=== PATIENT | male | born 1955 | race Caucasian/White ===

== ENCOUNTER 2016-08-19 10:12 | Emergency (ER) | payer BC ==
[~2016-08-19] VITALS: Ht 180.3 cm; Wt 116.9 kg
[~2016-08-19 10:12] MED LIST: AMLO2.5T PO; ASPI81TA28 PO; ATOR-24 PO; CALC-342 PO; CHOL1000 PO; CMD5 PO; GABA-112 PO; GLC/500 PO; INDO-22 PO; QUIN40TA18 PO; SITA100T3 PO; TAMS0.4C38 PO; WARF-237 PO; [UNRECOGNIZED DRUG - CODE] IM
[2016-08-19 10:23] VITALS: Ht 180.3 cm; Wt 116.9 kg
[2016-08-19] MEDS ORDERED: ONDANSETRON INJ 2 MG/ML 2 ML VIAL IV PRN (11:00)
[2016-08-19] MEDS: HYDROmorphone INJ 1 MG/ML SYR IV PRN ×3 (11:15→13:26)
--- NOTE | 2016-08-19 11:19 | EMERGENCY ROOM VISIT NOTE ---
History Report prepared by Sangita: Maggie Henning Under the Supervision of: Dr. Nito Valenzuela M.D. 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 The patient states that he has suffer from ongoing shoulder pain and it occasionally gets very severe. He states that he has scheduled a shoulder replacement for August [address] Perez. The patient states that he has never dislocated his right shoulder before but his states that yesterday his shoulder was locking up and was stiff. The patient states that he is unable to move his right shoulder due to pain. The patient's states that the patient took pain medication earlier today but it did not decrease his pain. The patient states that he occasionally develops bleeding in his shoulder but that he has never had it drained before and that the blood reabsorbs. Source of History: patient Onset: MANAGER VALIDATION Position: shoulder (right) Symptom Intensity: 10/10 Timing: worsening Modifying Factors (Worsening): movement Review of Systems All systems have been listed, reviewed, and are negative other than those previously mentioned. Please see Additional Medical History Sheet. Past Medical & Surgical Medical Problems: (1) Atrial fibrillation (2) Prostate cancer Family History Diabetes mellitus Social History Smoking Status: Never Smoker Drug Use: none Marital Status: Housing Status: lives with family Occupation Status: retired Current/Historical Medications Scheduled Amlodipine Besylate (Norvasc), 2.5 MG PO QAM Aspirin (Aspirin Ec), 81 MG PO QAM Atorvastatin (Lipitor), 40 MG PO HS Calcium Carbonate-Vitamin D (Calcium 600+D), 1 TAB PO QAM Cholecalciferol (Vitamin D3), 1,000 UNIT PO QPM Degarelix Acetate (Firmagon), 1 DOSE IM DIRECTED Docusate Sodium (Colace), 100 MG PO BID Gabapentin (Neurontin), 100 MG PO BID Indomethacin (Indocin), 25-50 MG PO prn Metformin Hcl (Glucophage), 1,000 MG PO BID Quinapril Hcl (Accupril), 40 MG PO QPM Sitagliptin Phosphate (Januvia), 100 MG PO QPM Tamsulosin Hcl (Flomax), 0.4 MG PO QPM Warfarin Sod (Coumadin), 10 MG PO MWF Warfarin Sod (Coumadin), 5 MG PO Tues,Thus,Sat,Sun Scheduled PRN Hydromorphone Hcl (Dilaudid), 1 TAB PO Q4H PRN for Pain Allergies Coded Allergies: No Known Allergies (Verified , 08/19/16) Physical Exam Vital Signs Date Time Temp Pulse Resp B/P Pulse Ox O2 Delivery O2 Flow Rate FiO2 08/19/16 15:07 68 16 165/80 97 Room Air 08/19/16 14:00 62 16 133/65 96 Room Air 08/19/16 13:26 61 16 159/81 95 Room Air 08/19/16 12:51 59 08/19/16 12:00 57 17 156/75 94 Room Air 08/19/16 12:00 94 Room Air 08/19/16 10:23 55 20 147/83 97 Room Air Physical Exam GENERAL: Patient awake, alert, oriented x 3. Patient follows commands. Patient does not appear toxic. Patient is adequately hydrated and well- nourished. Patient appears to be in extreme pain, and is hyperventilating. SKIN: No erythema, pallor, cyanosis or rash HEENT: Normal head, pupils equal, reactive to light and accommodation. LUNGS: Clear to auscultation. No wheezes, no rales, no rhonchi. HEART: No murmurs. No gallops. No rubs CHEST: Well healed midline sternotomy scar. EXTREMITIES: No signs of trauma. No pedal or pretibial edema. No calf or thigh tenderness.Well healed scars over the top of both shoulders. Right shoulder is swollen and remarkable tender. Patient is unable to move the right shoulder in any direction due to severe pain. Distal sensory and circulatory function intact. NEUROLOGIC: Cranial nerves II-XII within normal limits. No gross motor sensory function deficits. Medical Decision & Procedures ER Provider Diagnostic Interpretation: X ray results are stated below per my interpretation and the radiologist's interpretation. RIGHT SHOULDER 3 VIEWS CLINICAL HISTORY: Chronic right shoulder pain. FINDINGS: 3 views of the right shoulder are correlated with chest x-ray dated 04/03/2016. The skeletal structures are osteopenic. No fracture is identified. There is arthritic change with bony sclerosis and subchondral cyst formation seen involving the greater tuberosity of the humeral head. Large spurs arise from the inferior aspect of the humeral head. Mild superior subluxation of the humeral head suggests chronic rotator cuff injury. There is widening of the acromioclavicular joint space which may on be a postoperative change or represent shoulder separation. The overlying soft tissues are within normal limits. Partially imaged right upper lobe lung parenchyma appears clear. Midline sternotomy wires are noted. IMPRESSION: 1. No fracture is seen. 2. Osteopenia and arthritic change as above. 3. Mild superior subluxation of the humeral head suggests chronic rotator cuff injury. 4. There is widening at the acromioclavicular joint. This may represent shoulder separation or could be on a postoperative basis. Clinical correlation will be required. Electronically signed by: Tommy Hoover M.D. 08/19/2016 11:43 AM Dictated Date/Time: 08/19/2016 11:41 AM Medications Administered Medications (Trade) Dose Ordered Sig/Leilani Route Start Time Stop Time Status Last Admin Dose Admin Hydromorphone HCl (Dilaudid Inj) 1 mg Q1HWA PRN IV 08/19/16 11:00 09/02/16 10:59 08/19/16 13:26 1 MG Ondansetron HCl (Zofran Inj) 4 mg Q1HWA PRN IV 08/19/16 11:00 09/18/16 10:59 08/19/16 11:14 4 MG ED Course 1048: Past medical records reviewed. The patient was evaluated in room A12B. A complete history and physical examination was performed. 1100: Ordered Zofran Inj 4 mg IV, Dilaudid Inj 1 mg IV. 1150: I reevaluated the patient and he was still experiencing pain. 1334: I reevaluated the patient and he was hemodynamically stable. 1425:I discussed the case with Dr. Huston Orthopedic Surgery. He agreed to evaluate the patient for further management and care. 1455: Dr. Huston evaluated the patinet and drained blood from inside the patient's shoulder joint. 1510: Upon reevaluation, the patient appeared to have improvement of his symptoms. I discussed today's findings with him. He verbalized agreement of the treatment plan. The patient was discharged home. Medical Decision Nurses notes reviewed. Medical history sheet reviewed. Differential diagnosis includes but is not limited to: degenerative joint .disease of the right shoulder, fracture, dislocation, subluxation, septic joint. The patient is here with severe right shoulder pain. This is one of many visits for the same. The patient has had some bleeding into the shoulder in the past and it appears that he has the same thing at this time. X-ray reveals chronic changes I do not believe that any of the findings are acute. The patient may have some bleeding into the joint. I'm reluctant to perform arthrocentesis at this time. He did improve without that procedure in the past. Patient is scheduled to have his shoulder replaced within the next couple of weeks. The patient was given the above medications but had inadequate relief. Consultation was obtained with Dr. Huston. He was able to drain some blood from the shoulder and inject Marcaine. The patient did feel better and was discharged. The patient will need a shoulder replacement soon. Consults Time Called: 1420 Consulting Physician: Dr. Huston Orthopedic Surgery Returned Call: [phone] I discussed the case with Dr. Huston Orthopedic Surgery. He agreed to evaluate the patient for further management and care. Impression Primary Impression: Right shoulder pain Scribe Attestation The scribe's documentation has been prepared under my direction and personally reviewed by me in its entirety. I confirm that the note above accurately reflects all work, treatment, procedures, and medical decision making performed by me. Departure Information Dispostion Home / Self-Care Prescriptions Docusate Sodium (COLACE) 100 Mg Cap 100 MG PO BID, #30 CAP Prov: Nito Valenzuela M.D. 08/19/16 Hydromorphone Hcl (DILAUDID) 4 Mg Tab 1 TAB PO Q4H Y for Pain, #20 TAB Prov: Nito Valenzuela M.D. 08/19/16 Referrals Tequila Eubanks M.D. (PCP) Forms HOME CARE DOCUMENTATION FORM, IMPORTANT VISIT INFORMATION Additional Instructions Follow-up with orthopedics as soon as possible Continue all of your current medications as prescribed. Dilaudid as needed for pain. Do not drive or operate machinery while taking pain medication. Colace twice a day to prevent constipation.
--- NOTE | 2016-08-19 11:45 | DIAGNOSTIC IMAGING REPORT ---
RIGHT SHOULDER 3 VIEWS CLINICAL HISTORY: Chronic right shoulder pain. FINDINGS: 3 views of the right shoulder are correlated with chest x-ray dated 04/03/2016. The skeletal structures are osteopenic. No fracture is identified. There is arthritic change with bony sclerosis and subchondral cyst formation seen involving the greater tuberosity of the humeral head. Large spurs arise from the inferior aspect of the humeral head. Mild superior subluxation of the humeral head suggests chronic rotator cuff injury. There is widening of the acromioclavicular joint space which may on be a postoperative change or represent shoulder separation. The overlying soft tissues are within normal limits. Partially imaged right upper lobe lung parenchyma appears clear. Midline sternotomy wires are noted. IMPRESSION: 1. No fracture is seen. 2. Osteopenia and arthritic change as above. 3. Mild superior subluxation of the humeral head suggests chronic rotator cuff injury. 4. There is widening at the acromioclavicular joint. This may represent shoulder separation or could be on a postoperative basis. Clinical correlation will be required. Electronically signed by: Tommy Hoover M.D. 08/19/2016 11:43 AM Dictated Date/Time: 08/19/2016 11:41 AM
[2016-08-19 12:00] VITALS: O2SAT 94
[2016-08-19] MEDS ORDERED: LIDOCAINE HCL 1% 20 ML VIAL ONE (14:40)
[2016-08-19] MEDS ORDERED: NURSING VERBAL MED ORDER ONE (15:15)
[2016-08-19] MEDS ORDERED: HYDR4TAB2 PO (15:18)
[2016-08-19] MEDS ORDERED: DOCU-94 PO (15:20)
[2016-08-19] MEDS ORDERED: BUPIVACAINE/EPINEPHRINE 0.5% 1:200,000 1.8 ML CARP INJ ONE (15:30)
[2016-08-19 15:33] VITALS: BP 165/80; PULSE 68; O2SAT 97
--- NOTE | 2016-08-19 17:26 | ORTHOPEDIC CONSULTATION ---
DATE OF CONSULTATION: 08/19/2016 Special attention to severe right shoulder pain. HISTORY OF PRESENT ILLNESS: This is a 60-year-old gentleman who has a known history of right shoulder arthritis. He is currently scheduled for a total shoulder replacement by Dr. Perez on the . He does take Coumadin, has had several episodes of hematoma in the shoulder with severe pain. He has been in the Emergency Department and has had multiple doses of intravenous narcotics and has been unable to control his pain. Emergency Department requests consultation for either aspiration of the shoulder versus admission. PAST MEDICAL HISTORY: Atrial fibrillation, prostate cancer. MEDICATIONS: Multiple and include Coumadin. PHYSICAL EXAMINATION: Right shoulder exam shows a tense effusion in the shoulder. He can flex and extend the wrist and the elbow, but further musculoskeletal exam is limited secondary to discomfort. Severe pain with touch of the shoulder. The shoulder is not markedly warm and is not erythematous. Radiographs do show superior subluxation of the humeral head with significant arthritic changes in the glenohumeral joint, widening of the AC joint is seen. No acute fracture are noted. ASSESSMENT: Right shoulder effusion/hemarthrosis with acute exacerbation of pain. PLAN: I discussed treatment options. We discussed options of drainage of the shoulder with injection of Marcaine. He is agreeable to this. PROCEDURE NOTE: The right shoulder was prepped with Betadine from a posterior approach. I injected approximately 4 mL of lidocaine. I then subsequently with an 18 gauge needle, aspirated the shoulder joint. I was able to remove approximately 10 mL of bloody fluid from the posterior glenohumeral joint. I injected 6 mL of Marcaine intraarticularly for pain relief. Band-Aid was applied. The patient will follow up as directed with Dr. Perez. [facility] CENTERJacqueline
[2016-09-01] MEDS ORDERED: ONDA8TAB6 PO (22:07)
[2016-09-01] MEDS ORDERED: OXYSR10 PO (22:07)
[2016-09-01] MEDS ORDERED: RXC5 PO (22:07)
[2016-09-01] MEDS ORDERED: ACET-1138 PO (22:07)
[2017-02-19] MEDS ORDERED: GLIP-199 PO (14:42)
[2017-02-19] MEDS ORDERED: ACET1TAB84 PO (14:42)
== END 2016-08-19 15:33 | disposition home or self-care (01) ==
LOC: C.EDB 10:14 → C.EDA 15:33
DX: M25.411 Effusion, right shoulder (principal); M25.011 Hemarthrosis, right shoulder; I48.91 Unspecified atrial fibrillation; Z85.46 Personal history of malignant neoplasm of prostate; Z79.82 Long term (current) use of aspirin; Z79.899 Other long term (current) drug therapy; Z79.01 Long term (current) use of anticoagulants

== ENCOUNTER 2016-08-21 01:10 | Emergency (ER) | payer BC ==
[~2016-08-21] VITALS: Ht 182.9 cm; Wt 118.3 kg
[~2016-08-21 01:10] MED LIST changes: +DOCU-94 PO; +HYDR4TAB2 PO
[2016-08-21 01:16] VITALS: Ht 182.9 cm; Wt 118.3 kg
[2016-08-21] MEDS ORDERED: HYDROmorphone INJ 1 MG/ML SYR IV STA ×2 (01:29→02:21)
[2016-08-21] MEDS ORDERED: ONDANSETRON INJ 2 MG/ML 2 ML VIAL IV STA (01:29)
[2016-08-21] MEDS ORDERED: METF500T5 PO (03:03)
[2016-08-21] MEDS ORDERED: DGRI80 IM (03:09)
[2016-08-21 03:46] LABS: BASO % 0.4 %; BASO ABS # 0.03 K/uL (0-0.2); COMPLETE YES; EOS % 3.4 %; HEMATOCRIT 37.2 % (42-52); IG% 0.4 %; LYMPH % 11.4 %; LYMPH ABS # 0.81 K/uL (1.2-3.4); MEAN CELL VOLUME 87.5 fL (80-100); MEAN CORPUSCULAR HEMOGLOBIN 29.9 pg (25-34); MEAN CORPUSCULAR HGB CONC 34.1 g/dl (32-36); MEAN PLATELET VOLUME 11.9 fL (7.4-10.4); MONO % 8.3 %; NEUT % 76.1 %; PLATELET COUNT 166 K/uL (130-400); RED BLOOD COUNT 4.25 M/uL (4.7-6.1); WHITE BLOOD COUNT 7.12 K/uL (4.8-10.8)
[2016-08-21 03:54] LABS: BUN/CREATININE RATIO 15.9 (10-20); CALCIUM 8.9 mg/dl (8.5-10.1); CREATININE 0.92 mg/dl (0.60-1.40); POTASSIUM 4.1 mmol/L (3.5-5.1); URIC ACID 4.7 mg/dl (2.6-7.2)
[2016-08-21 03:56] LABS: INR 1.8 (0.9-1.1); PARTIAL THROMBOPLASTIN RATIO 1.3
[2016-08-21 03:57] LABS: C-REACTIVE PROTEIN 1.64 mg/dl (0-0.29)
[2016-08-21] MEDS ORDERED: HYDROmorphone INJ 0.5 MG/0.5 ML SYR IV STA ×2 (04:44→08:12)
--- NOTE | 2016-08-21 05:42 | EMERGENCY ROOM VISIT NOTE ---
History First contact with patient: :20 Chief Complaint: SHOULDER PAIN Stated Complaint: RIGHT SHOULDER PAIN-BLEEDER History of Present Illness The patient is a 61 year old male who presents to the Emergency Department by private vehicle for evaluation of his RIGHT shoulder pain. He is scheduled for shoulder replacement surgery on 08/[address] Chandler. He was seen in this facility on Saturday and had his shoulder drained. He reports that he had been doing well until last evening when he developed progressively worsening pain to the affected shoulder. He reports the shoulder became swollen and tight. He reports increasing pain with range of motion. He denies any numbness or tingling into the distal extremity. He denies any trauma to the affected area. The patient rates his current discomfort as a 10/10. He has used oral Dilaudid with minimal relief of symptoms. He denies any chest pain, palpitations, short of breath, neck pain, elbow pain, or wrist pain. Review of Systems A complete 10-point Review of Systems was discussed with the patient, with pertinent positives and negatives listed in the History of Present Illness. All remaining Review of Systems questions can be considered negative unless otherwise specified. Past Medical/Surgical History Medical Problems: (1) Atrial fibrillation (2) Prostate cancer Family History Diabetes mellitus Social History Smoking Status: Never Smoker Smokeless Tobacco Use: No Drug Use: none Marital Status: Housing Status: lives with family Occupation Status: retired Current/Historical Medications Scheduled Amlodipine Besylate (Norvasc), 2.5 MG PO QAM Aspirin (Aspirin Ec), 81 MG PO QAM Atorvastatin (Lipitor), 40 MG PO HS Calcium Carbonate-Vitamin D (Calcium 600+D), 1 TAB PO QAM Cholecalciferol (Vitamin D3), 1,000 UNIT PO QPM Degarelix Acetate (Firmagon), 1 DOSE IM EVERY 28 DAYS Docusate Sodium (Colace), 100 MG PO BID Gabapentin (Neurontin), 100 MG PO BID Metformin Hcl Er (Glucophage Er), 1,000 MG PO BID Quinapril Hcl (Accupril), 40 MG PO QPM Sitagliptin Phosphate (Januvia), 100 MG PO QPM Tamsulosin Hcl (Flomax), 0.4 MG PO QPM Warfarin Sod (Coumadin), 10 MG PO 2XWK Warfarin Sod (Coumadin), 5 MG PO 5XWK Scheduled PRN Hydromorphone Hcl (Dilaudid), 1 TAB PO Q4H PRN for Pain Indomethacin (Indocin), 25-50 MG PO UD PRN for GOUT Allergies Coded Allergies: No Known Allergies (Verified , 08/21/16) Physical Exam Vital Signs Date Time Temp Pulse Resp B/P Pulse Ox O2 Delivery O2 Flow Rate FiO2 08/21/16 06:23 79 18 137/86 93 Room Air 08/21/16 05:03 72 18 168/79 91 Room Air 08/21/16 03:35 64 18 150/75 92 Room Air 08/21/16 02:32 70 16 150/75 93 Room Air 08/21/16 01:53 78 20 129/88 94 08/21/16 01:16 36.4 87 20 177/85 94 Room Air Pain Rating (0-10): 10 Physical Exam VITAL SIGNS - Vital signs and nursing notes were reviewed. GENERAL - 61-year-old male appearing his stated age and in noticeable discomfort throughout the exam. NECK - FROM of the cervical spine. No spinous process or paraspinal muscle tenderness to palpation. No nuchal rigidity. LUNGS - Chest wall symmetric without accessory muscle use, intercostals retractions, or central cyanosis. Normal vesicular breath sounds CTA B/L. No wheezes, rales, or rhonchi appreciated. CARDIAC - RRR with S1/S2. No murmur, rubs, or gallops appreciated. MUSCULOSKELETAL - Active ROM of the RIGHT shoulder was limited in all directions. Moderate effusion noted to the shoulder joint. Moderately tender to palpation. No erythema or warmth to touch. No tenderness to palpation extending distally down the arm into the elbow or wrist. Able to flex and extend wrist and elbow as well as supinate and pronate the forearm. +4/5 culturist strength appreciated RIGHT versus left secondary to patient discomfort. NEUROLOGIC - SENSORY: Spinothalamic tract was found to be intact with ability to discriminate sharp versus dull sensation at the level of the RIGHT side of the neck down to the fingertips. No sensory deficits of the dorsal column were appreciated utilizing light touch for evaluation. VASCULAR - Capillary refill was brisk. +3/5 radial pulse palpated. Medical Decision & Procedures ER Provider Diagnostic Interpretation: X-ray of the RIGHT shoulder was obtained and reviewed by myself. No acute fractures, dislocations, or subluxations appreciated. There appears to be no significant change from prior. There is a large effusion appreciated. AC joint separation still present. Radiologist's impression unavailable at the time of dictation. Laboratory Results 08/21/16 01:30 Red Blood Count 4.25, Mean Corpuscular Volume 87.5, Mean Corpuscular Hemoglobin 29.9, Mean Corpuscular Hemoglobin Concent 34.1, Mean Platelet Volume 11.9, Neutrophils (%) (Auto) 76.1, Lymphocytes (%) (Auto) 11.4, Monocytes (%) (Auto) 8.3, Eosinophils (%) (Auto) 3.4, Basophils (%) (Auto) 0.4, Neutrophils # (Auto) 5.42, Lymphocytes # (Auto) 0.81, Monocytes # (Auto) 0.59, Eosinophils # (Auto) 0.24, Basophils # (Auto) 0.03 08/21/16 01:30 Test 08/21/16 01:30 White Blood Count 7.12 K/uL (4.8-10.8) Red Blood Count 4.25 M/uL (4.7-6.1) Hemoglobin 12.7 g/dL (14.0-18.0) Hematocrit 37.2 % (42-52) Mean Corpuscular Volume 87.5 fL (80-100) Mean Corpuscular Hemoglobin 29.9 pg (25-34) Mean Corpuscular Hemoglobin Concent 34.1 g/dl (32-36) Platelet Count 166 K/uL (130-400) Mean Platelet Volume 11.9 fL (7.4-10.4) Neutrophils (%) (Auto) 76.1 % Lymphocytes (%) (Auto) 11.4 % Monocytes (%) (Auto) 8.3 % Eosinophils (%) (Auto) 3.4 % Basophils (%) (Auto) 0.4 % Neutrophils # (Auto) 5.42 K/uL (1.4-6.5) Lymphocytes # (Auto) 0.81 K/uL (1.2-3.4) Monocytes # (Auto) 0.59 K/uL (0.11-0.59) Eosinophils # (Auto) 0.24 K/uL (0-0.5) Basophils # (Auto) 0.03 K/uL (0-0.2) RDW Standard Deviation 48.1 fL (36.4-46.3) RDW Coefficient of Variation 15.0 % (11.5-14.5) Immature Granulocyte % (Auto) 0.4 % Immature Granulocyte # (Auto) 0.03 K/uL (0.00-0.02) Erythrocyte Sedimentation Rate 12 mm/hr (0-14) Prothrombin Time 20.0 SECONDS (9.0-12.0) Prothromb Time International Ratio 1.8 (0.9-1.1) Activated Partial Thromboplast Time 33.3 SECONDS (21.0-31.0) Partial Thromboplastin Ratio 1.3 Anion Gap 8.0 mmol/L (3-11) Est Creatinine Clear Calc Drug Dose 109.1 ml/min Estimated GFR () 102.2 Estimated GFR (Non- 88.2 BUN/Creatinine Ratio 15.9 (10-20) Uric Acid 4.7 mg/dl (2.6-7.2) Calcium Level 8.9 mg/dl (8.5-10.1) Total Bilirubin 0.4 mg/dl (0.2-1) Aspartate Amino Transf (AST/SGOT) 14 U/L (15-37) Alanine Aminotransferase (ALT/SGPT) 33 U/L (12-78) Alkaline Phosphatase 71 U/L (45-117) C-Reactive Protein 1.64 mg/dl (0-0.29) Total Protein 7.4 gm/dl (6.4-8.2) Albumin 3.7 gm/dl (3.4-5.0) Globulin 3.7 gm/dl (2.5-4.0) Albumin/Globulin Ratio 1.0 (0.9-2) Medications Administered Medications (Trade) Dose Ordered Sig/Leilani Route Start Time Stop Time Status Last Admin Dose Admin Hydromorphone HCl (Dilaudid Inj) 1 mg NOW STAT IV 08/21/16 01:29 08/21/16 01:31 DC 08/21/16 01:40 1 MG Ondansetron HCl (Zofran Inj) 4 mg NOW STAT IV 08/21/16 01:29 08/21/16 01:31 DC 08/21/16 01:39 4 MG Hydromorphone HCl (Dilaudid Inj) 1 mg NOW STAT IV 08/21/16 02:21 08/21/16 02:22 DC 08/21/16 02:26 1 MG Hydromorphone HCl (Dilaudid Inj) 0.5 mg NOW STAT IV 08/21/16 04:44 08/21/16 04:45 DC 08/21/16 04:51 0.5 MG ED Course Patient was seen and evaluated by myself. Previous emergency department visit note was reviewed. IV lock was established. The patient was treated with 4 mg Zofran 1 mg Dilaudid intravenously. X-ray of the affected shoulder was obtained. Patient was treated with an additional 1 mg Dilaudid intravenously. After a conversation with my attending physician, it was felt best the patient be monitored in the emergency department for pain control until 6 AM when page could be made to [facility] on-call provider. Patient received an additional 0.5 mg Dilaudid for ongoing pain. Laboratory results demonstrate no acute leukocytosis, significant anemia, or bandemia. The patient has no significant electrolyte abnormalities. INR was elevated at 1.8. Patient rested comfortably throughout the remainder of his stay. I did discuss the case with Dr. Nicholson, the on-call provider for [facility]. He will have DEISY Seaman or another provider evaluate the patient emergency department for disposition planning. Patient was signed out to Maris Galdamez PA-C at change of shift pending orthopedic evaluation. Please refer to her dictation for disposition and plan. Medical Decision Given the patient's presentation and exam findings, I did elect to perform the above-mentioned workup. The patient presents today with a large effusion to the RIGHT joint. This had occurred on Saturday and was drained with success. He has no fever leukocytosis. His ESR and CRP are not significantly elevated to suggest infectious source. I suspect the patient is likely experiencing another hemarthroses of the affected joint. He does appear significant discomfort and the joint is very taut. His pain was somewhat controlled while in the emergency department. I do feel the patient warrants orthopedic evaluation as this appears to be somewhat of a recurrent event. He will be evaluated by orthopedic surgery in the emergency setting for further ideas of management. Patient was signed out to Maris Galdamez PA-C pending orthopedic evaluation. Please refer to her note for disposition and plan. In the evaluation and treatment of this patient, the following differential diagnoses were considered: Shoulder Contusion, Shoulder Fracture, Shoulder Dislocation, Thoracic Outlet Syndrome, Adhesive Capsulitis, Rotator Cuff Tear, Proximal Clavicle Head Fracture, Apical Pneumonia, Pneumothorax, Hemothorax, or TB. Impression Primary Impression: Hemarthrosis, right shoulder Additional Impression: Right shoulder pain Departure Information Dispostion Still a Patient Condition GOOD Referrals Tequila Eubanks M.D. (PCP) Patient Instructions [facility] Problem Qualifiers Additional Impression: Right shoulder pain Chronicity: acute Qualified Codes: M25.511 - Pain in right shoulder
--- NOTE | 2016-08-21 06:49 | DIAGNOSTIC IMAGING REPORT ---
RIGHT SHOULDER MIN 2 VIEWS ROUTINE CLINICAL HISTORY: Right shoulder pain. COMPARISON: 08/19/2016 DISCUSSION: There is persistent narrowing of the humeral acromial distance consistent with chronic rotator cuff tear/degeneration. There are no acute fractures. Degenerative changes are present within the humeral acromial joint. There is foreshortening of distal clavicle, likely postsurgical. IMPRESSION: Degenerative changes as described above. No acute fractures are visualized. Electronically signed by: Jones Ruby M.D. 08/21/2016 6:46 AM Dictated Date/Time: 08/21/2016 6:45 AM
--- NOTE | 2016-08-21 08:16 | EMERGENCY ROOM VISIT NOTE ---
ED Visit Note Care of this patient was signed out to me at change of shift by HARSHA Garcia. At that time, the patient was awaiting orthopedic consultation. DEISY Seaman from [facility] did arrive to see the patient. He felt that the patient would not require aspiration at this time and could be discharged home to continue his oral Dilaudid. He did recommend that she take Tylenol on a regular basis. The patient will be immobilized in a sling. He will follow-up as scheduled for shoulder replacement this month. Discharge plan was discussed with the patient. He was given an additional 0.5 mg Dilaudid IV prior to discharge. He verbalized understanding of the assessment and treatment plan and was discharged home in good condition. Problem List Medical Problems: (1) Atrial fibrillation Status: Chronic (2) Prostate cancer Status: Chronic Current/Historical Medications Scheduled Amlodipine Besylate (Norvasc), 2.5 MG PO QAM Aspirin (Aspirin Ec), 81 MG PO QAM Atorvastatin (Lipitor), 40 MG PO HS Calcium Carbonate-Vitamin D (Calcium 600+D), 1 TAB PO QAM Cholecalciferol (Vitamin D3), 1,000 UNIT PO QPM Degarelix Acetate (Firmagon), 1 DOSE IM EVERY 28 DAYS Docusate Sodium (Colace), 100 MG PO BID Gabapentin (Neurontin), 100 MG PO BID Metformin Hcl Er (Glucophage Er), 1,000 MG PO BID Quinapril Hcl (Accupril), 40 MG PO QPM Sitagliptin Phosphate (Januvia), 100 MG PO QPM Tamsulosin Hcl (Flomax), 0.4 MG PO QPM Warfarin Sod (Coumadin), 10 MG PO 2XWK Warfarin Sod (Coumadin), 5 MG PO 5XWK Scheduled PRN Hydromorphone Hcl (Dilaudid), 1 TAB PO Q4H PRN for Pain Indomethacin (Indocin), 25-50 MG PO UD PRN for GOUT Allergies Coded Allergies: No Known Allergies (Verified , 08/21/16) Vital Signs Date Time Temp Pulse Resp B/P Pulse Ox O2 Delivery O2 Flow Rate FiO2 08/21/16 09:07 70 18 150/88 96 Room Air 08/21/16 08:20 36.5 74 18 153/87 96 Room Air 08/21/16 06:23 79 18 137/86 93 Room Air 08/21/16 05:03 72 18 168/79 91 Room Air 08/21/16 03:35 64 18 150/75 92 Room Air 08/21/16 02:32 70 16 150/75 93 Room Air 08/21/16 01:53 78 20 129/88 94 08/21/16 01:16 36.4 87 20 177/85 94 Room Air Laboratory Results 08/21/16 01:30 Red Blood Count 4.25, Mean Corpuscular Volume 87.5, Mean Corpuscular Hemoglobin 29.9, Mean Corpuscular Hemoglobin Concent 34.1, Mean Platelet Volume 11.9, Neutrophils (%) (Auto) 76.1, Lymphocytes (%) (Auto) 11.4, Monocytes (%) (Auto) 8.3, Eosinophils (%) (Auto) 3.4, Basophils (%) (Auto) 0.4, Neutrophils # (Auto) 5.42, Lymphocytes # (Auto) 0.81, Monocytes # (Auto) 0.59, Eosinophils # (Auto) 0.24, Basophils # (Auto) 0.03 08/21/16 01:30 Test 08/21/16 01:30 White Blood Count 7.12 K/uL (4.8-10.8) Red Blood Count 4.25 M/uL (4.7-6.1) Hemoglobin 12.7 g/dL (14.0-18.0) Hematocrit 37.2 % (42-52) Mean Corpuscular Volume 87.5 fL (80-100) Mean Corpuscular Hemoglobin 29.9 pg (25-34) Mean Corpuscular Hemoglobin Concent 34.1 g/dl (32-36) Platelet Count 166 K/uL (130-400) Mean Platelet Volume 11.9 fL (7.4-10.4) Neutrophils (%) (Auto) 76.1 % Lymphocytes (%) (Auto) 11.4 % Monocytes (%) (Auto) 8.3 % Eosinophils (%) (Auto) 3.4 % Basophils (%) (Auto) 0.4 % Neutrophils # (Auto) 5.42 K/uL (1.4-6.5) Lymphocytes # (Auto) 0.81 K/uL (1.2-3.4) Monocytes # (Auto) 0.59 K/uL (0.11-0.59) Eosinophils # (Auto) 0.24 K/uL (0-0.5) Basophils # (Auto) 0.03 K/uL (0-0.2) RDW Standard Deviation 48.1 fL (36.4-46.3) RDW Coefficient of Variation 15.0 % (11.5-14.5) Immature Granulocyte % (Auto) 0.4 % Immature Granulocyte # (Auto) 0.03 K/uL (0.00-0.02) Erythrocyte Sedimentation Rate 12 mm/hr (0-14) Prothrombin Time 20.0 SECONDS (9.0-12.0) Prothromb Time International Ratio 1.8 (0.9-1.1) Activated Partial Thromboplast Time 33.3 SECONDS (21.0-31.0) Partial Thromboplastin Ratio 1.3 Anion Gap 8.0 mmol/L (3-11) Est Creatinine Clear Calc Drug Dose 109.1 ml/min Estimated GFR () 102.2 Estimated GFR (Non- 88.2 BUN/Creatinine Ratio 15.9 (10-20) Uric Acid 4.7 mg/dl (2.6-7.2) Calcium Level 8.9 mg/dl (8.5-10.1) Total Bilirubin 0.4 mg/dl (0.2-1) Aspartate Amino Transf (AST/SGOT) 14 U/L (15-37) Alanine Aminotransferase (ALT/SGPT) 33 U/L (12-78) Alkaline Phosphatase 71 U/L (45-117) C-Reactive Protein 1.64 mg/dl (0-0.29) Total Protein 7.4 gm/dl (6.4-8.2) Albumin 3.7 gm/dl (3.4-5.0) Globulin 3.7 gm/dl (2.5-4.0) Albumin/Globulin Ratio 1.0 (0.9-2) Medications Administered Medications (Trade) Dose Ordered Sig/Leilani Route Start Time Stop Time Status Last Admin Dose Admin Hydromorphone HCl (Dilaudid Inj) 1 mg NOW STAT IV 08/21/16 01:29 08/21/16 01:31 DC 08/21/16 01:40 1 MG Ondansetron HCl (Zofran Inj) 4 mg NOW STAT IV 08/21/16 01:29 1/17/17 01:31 DC 08/21/16 01:39 4 MG Hydromorphone HCl (Dilaudid Inj) 1 mg NOW STAT IV 08/21/16 02:21 08/21/16 02:22 DC 08/21/16 02:26 1 MG Hydromorphone HCl (Dilaudid Inj) 0.5 mg NOW STAT IV 08/21/16 04:44 08/21/16 04:45 DC 08/21/16 04:51 0.5 MG Hydromorphone HCl (Dilaudid Inj) 0.5 mg NOW STAT IV 08/21/16 08:12 08/21/16 08:13 DC 08/21/16 09:15 0.5 MG Departure Information Impression Primary Impression: Hemarthrosis, right shoulder Additional Impression: Right shoulder pain Qualified Codes: M25.511 - Pain in right shoulder Dispostion Home / Self-Care Condition GOOD Referrals Tequila Eubanks M.D. (PCP) Patient Instructions My [facility] Additional Instructions Continue your Dilaudid, 1 tablet every 4 hours orally as needed for pain. You should take Tylenol, 1000 mg every 8 hours on a regular basis. Continue to follow-up with [facility] as scheduled.
[2016-08-21 08:20] VITALS: TEMP 36.5
--- NOTE | 2016-08-21 08:46 | CONSULTATION REPORT ---
DATE OF CONSULTATION: 08/21/2016 REASON FOR CONSULT: Right shoulder pain. HISTORY OF PRESENT ILLNESS: The patient is a 61-year-old white male, known to our practice, who is being treated by Dr. Perez for right shoulder DJD. He is scheduled for a total shoulder arthroplasty on 08/30/2016. The patient states that over the great spare time, he has had right shoulder pain that has developed into a hemarthrosis because of him being on chronic Coumadin due to atrial fibrillation. He states that he has not had any history of DVT or pulmonary embolus in the past, but has been put on Coumadin because of his AFib. He has had several hemarthrosis in the past that aspirated or have gone down on their own. He states that he was in the Emergency Room just recently on 19 of August, at that point in time, he was seen by Dr. Huston, who aspirated the glenohumeral joint and injected 6 mL of Marcaine intra-articularly. The patient states that he was sent home with a prescription for Dilaudid, but he was taking it sporadically and not round the clock. He states that last night, after moving the shoulder and doing some things, he began having increasing swelling and pain in the right shoulder to that point, where he felt he needed to come into the Emergency Room. He states that the pain was not as bad as it was on the , but it was getting close. We have been asked to see him this morning. PAST MEDICAL HISTORY: Atrial fibrillation on chronic Coumadin, prostate carcinoma, hypertension, diabetes mellitus type 2, likely neuropathy, and chronic cough. PAST SURGICAL HISTORY: The patient has had a history of CABG, triple and appendectomy. He has had a right TKA, left TKA, left ANY, and right and left shoulder rotator cuff repairs. FAMILY HISTORY: Diabetes mellitus. SOCIAL HISTORY: The patient does not use tobacco or alcohol. MEDICATIONS: Amlodipine at 2.5 mg p.o. daily, aspirin 81 mg p.o. daily, atorvastatin 40 mg p.o. at bedtime, calcium 600 plus D 1 tab p.o. q.a.m., vitamin D3 at 1000 units p.o. q.p.m., Firmagon one dose IM every 28 days, Colace 100 mg p.o. b.i.d., gabapentin 100 mg p.o. b.i.d., metformin extended release 1000 mg p.o. b.i.d., quinapril 40 mg p.o. q.p.m., sitagliptin 100 mg p.o. q.p.m., Flomax 0.4 mg p.o. q.p.m., warfarin 10 mg p.o. 2 times a week and 5 mg p.o. 5 times a week, Dilaudid 1 tab p.o. q. 4 hours p.r.n., and indomethacin 25-50 mg p.o. as directed p.r.n. for gout. ALLERGIES: NKDA. REVIEW OF SYSTEMS: No recent fevers, chills, night sweats or unexplained weight loss. No flu or cold-like symptoms. The patient does have history of chronic cough, but no increase in his cough or increase in his sputum production. No shortness of breath or chest pain. No feeling of racing of his chest. No abdominal pain. No melena or hematochezia. No hematemesis. No hematuria, pyuria, or dysuria. PHYSICAL EXAMINATION: VITAL SIGNS: done at 06:23, pulse 79, respirations 18, BP 137/86, and oxygen saturation 93% on room air. GENERAL: Upon arrival into the room, the patient is sitting up in bed and watching TV. He is awake, alert and oriented to person, place and time and appears in no acute distress, pleasant and cooperative. Currently, he states that his shoulder pain is much better and he feels that the shoulder swelling has actually gone down since he has been here and is less tense. EXTREMITIES: On examination of his right shoulder, it is more swollen compared to the left and is somewhat tender on palpation, but not exquisitely so. Range of motion is limited at this point in time due to some pain he is having and plus with an increased INR and also repeat hematomas, I will limit the range of motion exam at this time. He has no pain down the arm and states that he did have pain down into the biceps, which is now resolved. He has no pain in the right elbow and has good range of motion of the right elbow as well as the right wrist without discomfort. He denies any numbness or tingling going down into the right hand and fingers. The shoulder itself is not overtly erythematous and is not overtly hot to the touch. ASSESSMENT: 1. Repeat hemarthrosis, right shoulder. 2. Degenerative joint disease, right shoulder. PLAN: At this point in time, I discussed the case with Dr. Cristopher Nicholson, who is distribution field technician as well as Dr. Perez, who is taking care of this patient for his arthritis in his shoulder. WBC 7.12; Sed Rate is wnl. CRP is mildly elevated. Doubt infection at this time.With his pain control managed and obvious swelling is decreased per the patient, we will not plan on any aspirations at this time of the shoulder. Continued aspirations could lead to a possibility of infection. Plans will be for the patient to use the sling regularly and only remove for getting dressed and showering. Otherwise, he needs to have a sling on at all times for immobilization. He states that he was not taking his pain medication regularly and he will now start to do so every 4-6 hours as needed. He has a prescription for Dilaudid, which is apparently 4 mg, he can take 1 tablet every 4 hours p.r.n. for pain. We will also ask him to start taking acetaminophen 1000 mg p.o. every 8 hours. Ice to the shoulder regularly for the swelling and to follow up with Dr. Perez if need be prior to his surgery date on 08/30/2016. DURAN
[2016-08-21 09:07] VITALS: BP 150/88; PULSE 70; O2SAT 96
[2016-09-01] MEDS ORDERED: OXYSR10 PO (22:07)
[2016-09-01] MEDS ORDERED: ONDA8TAB6 PO (22:07)
[2016-09-01] MEDS ORDERED: RXC5 PO (22:07)
[2016-09-01] MEDS ORDERED: ACET-1138 PO (22:07)
[2017-02-19] MEDS ORDERED: ACET1TAB84 PO (14:42)
[2017-02-19] MEDS ORDERED: GLIP-199 PO (14:42)
== END 2016-08-21 09:22 | disposition home or self-care (01) ==
LOC: C.EDB 01:11 → C.EDA 09:22
DX: M25.011 Hemarthrosis, right shoulder (principal); M19.011 Primary osteoarthritis, right shoulder; I48.91 Unspecified atrial fibrillation; I10 Essential (primary) hypertension; E11.9 Type 2 diabetes mellitus without complications; Z86.711 Personal history of pulmonary embolism; Z86.718 Personal history of other venous thrombosis and embolism; Z79.01 Long term (current) use of anticoagulants; Z96.642 Presence of left artificial hip joint; Z85.46 Personal history of malignant neoplasm of prostate; Z96.653 Presence of artificial knee joint, bilateral; Z95.1 Presence of aortocoronary bypass graft; Z79.82 Long term (current) use of aspirin; Z83.3 Family history of diabetes mellitus

== ENCOUNTER → 2016-08-29 | Outpatient (CLI) | payer BC ==
[~2016-08-29] MED LIST changes: +ACET-1138 PO; +ACET1TAB84 PO; +DGRI80 IM; -GLC/500 PO; +GLIP-199 PO; +METF500T5 PO; +ONDA8TAB6 PO; +OXYSR10 PO; +RXC5 PO; -[UNRECOGNIZED DRUG - CODE] IM
[2016-08-29 13:36] VITALS: BP 137/73; PULSE 68; TEMP 36.4; O2SAT 95
--- NOTE | 2016-08-29 16:29 | Radiation Oncology Follow-Up ---
Radiation Oncology Follow-Up Date of Visit Aug 29, 2016. Reason For Visit One-month follow-up and cancer survivorship care plan Radiation Completion Date Hormone suppression;Seed implant 04/19/16;IMRT 08/01/16 Diagnosis (1) Prostate cancer Status: Acute Onset Date: 10/14/2015 Location: left lobe of the prostate Histology Subtype: adenocarcinoma Stage: ll (B) Permanent Comment: Rising PSA, pretreatment PSA 25.5 Status post ultrasound-guided biopsies 10/14/2015 Biopsy Stage T2b Mcrae Helena grade 4+4 Prostate volume 49.8 Prostate density 0.5 Hormone suppression, Fermagon, planned for 12-18 months Status post prostate seed implant 04/19/2016. 43 seeds were placed. He received 8500 cGy. Status post completion of IMRT 08/01/2016 received 4619 cGy Last Edited By: Jasmyn Islas on Aug 10, 2016 09:37 History of Present Illness Mr. Fitzgerald is a 61-year-old male without a family history of prostate cancer. He was followed earlier with annual screenings with his most recent on 2010 and a prostate-specific antigen of 1.75. More recently he was seen by Dr. Ramsay for follow-up of penile curvature that he had noted in early 2013. He was seen in November 2014 with digital rectal exam at that time showing a prostate approximately 30 g and clinically benign with some asymmetry at the left base but no induration or nodularity. He was felt that the suspected case of Peyronie's disease and was put on a trial of Pentoxifylline. He returns for follow-up in March 2015 with some perceived improvement. He agreed to continue on Pentoxifylline but did not wish to consider plaque surgery. He had a repeat prostate-specific antigen on 09/12/2015 which was markedly elevated at 25.5. He therefore returned to Dr. Ramsay and was seen on 09/28/2015. Rectal exam at that time showed an enlarged gland and a 2 cm hard nodule in the mid gland. Given the digital rectal findings and change in prostate-specific antigen a biopsy was recommended and agreed upon by the patient. On 10/14/2015 the patient underwent an ultrasound-guided biopsy. Digital rectal exam at that time confirmed a 40 g prostate with central gland induration. The estimated prostate volume was 49.8 cm which translated into a prostate-specific antigen density of 0.5. No anechoic lesions were noted in the prostate margins versus within uniform. There was a very irregular echogenicity of the central gland however. 13 core biopsies of the prostate were obtained to biopsies each from the 6 quadrants with one from the midline line of the base. All biopsies from the right gland revealed benign tissue. All biopsies from the left gland and from the mid base were positive for adenocarcinoma Mcrae Helena grade 4+4. The percent of prostate cancer involvement ranged from 10% to 100% with all but to greater than 50% involvement. The patient returned to discuss the findings of the biopsy with Dr. Ramsay. She discussed treatment options with the patient. A staging workup was performed. This consisted of a bone scan on 11/27/2015 which showed no evidence of metastatic bony disease. He also underwent a CT scan of the abdomen and pelvis on 10/29/2015. This showed no evidence of nina or skeletal metastasis or extraprostatic extension. Mr. Fitzgerald wished to have further information on both surgical and radiation treatment options. It is for this reason that we were asked to see the patient in referral. All options of treatment were reviewed with the patient. Ultimately the decision was to treat with tri-modality. He would undergo hormone suppression followed by a prostate seed implant and then external beam therapy. Interim History He is been doing well over this past month. Urinary symptoms are stable. His AUA score was 9. At the end of treatment his score was 12. He continues on the tamsulosin daily. He completed expanded prostate cancer next composite for clinical practice and gave a score of one of 12 and urinary incontinence symptoms. He gave a score of 3 of 12 and urinary irritation symptoms. He gave a score of 4 of 12 and bowel symptoms. He gave a score of 10 of 12 and sexual symptoms. He gave a score of 5 of 12 and hormonal vitality symptoms. His total was 23 of 60. He continues on the hormonal suppression. Injections are given every 28 days. He'll be undergoing shoulder surgery tomorrow. He does have problems with constipation due to the pain medications. He is taking stool softeners and regulating his diet to try to help with the constipation. Allergies Coded Allergies: No Known Allergies (Verified , 08/21/16) Home Medications Scheduled Amlodipine Besylate (Norvasc), 2.5 MG PO QAM Aspirin (Aspirin Ec), 81 MG PO QAM Atorvastatin (Lipitor), 40 MG PO HS Calcium Carbonate-Vitamin D (Calcium 600+D), 1 TAB PO QAM Cholecalciferol (Vitamin D3), 1,000 UNIT PO QPM Degarelix Acetate (Firmagon), 1 DOSE IM EVERY 28 DAYS Docusate Sodium (Colace), 100 MG PO BID Gabapentin (Neurontin), 100 MG PO BID Metformin Hcl Er (Glucophage Er), 1,000 MG PO BID Quinapril Hcl (Accupril), 40 MG PO QPM Sitagliptin Phosphate (Januvia), 100 MG PO QPM Tamsulosin Hcl (Flomax), 0.4 MG PO QPM Warfarin Sod (Coumadin), 10 MG PO 2XWK Warfarin Sod (Coumadin), 5 MG PO 5XWK Scheduled PRN Hydromorphone Hcl (Dilaudid), 1 TAB PO Q4H PRN for Pain Indomethacin (Indocin), 25-50 MG PO UD PRN for GOUT Review of Systems Gastrointestinal: Symptoms: Constipation GI Comments: Stool softner BID;Having BMs but are very hard w/analgesia; Oral: Symptoms: No Problems Respiratory: Symptoms: Productive Cough Other Respiratory: "Chronic cough for clear sputum" Urinary: Comments: Occass. urgency;Intermittent episodes of urinary frequency; Skin: Symptoms: No Problems Physical Exam Vital Signs Date Time Temp Pulse Resp B/P Pulse Ox O2 Delivery O2 Flow Rate FiO2 08/29/16 13:36 36.4 68 16 137/73 95 Fatigue: Mild General Appearance: no apparent distress Eyes: normal inspection, EOMI ENT: normal ENT inspection, hearing grossly normal Neck: no adenopathy Respiratory/Chest: lungs clear, no respiratory distress, no accessory muscle use Cardiovascular: regular rate, rhythm, no gallop, no murmur Abdomen: non tender, soft, no organomegaly Extremities: no pedal edema Neurologic/Psychiatric: no motor/sensory deficits, alert, normal mood/affect Skin: warm/dry Lymphatic: no adenopathy Laboratory Studies Test 06/25/16 07:40 06/25/16 07:45 08/17/16 00:00 08/17/16 15:20 Estimated Average Glucose 203 mg/dl 194 mg/dl Hemoglobin A1c 8.7 % (4.5-5.6) 8.4 % (4.5-5.6) Total Bilirubin 0.7 mg/dl (0.2-1) Aspartate Amino Transferase (AST) 25 U/L (15-37) Alanine Aminotransferase (ALT) 64 U/L (12-78) Alkaline Phosphatase 56 U/L (45-117) Total Protein 7.1 gm/dl (6.4-8.2) Globulin 3.5 gm/dl (2.5-4.0) Albumin/Globulin Ratio 1.0 (0.9-2) Urine Random Creatinine 96.0 mg/dl Urine Random Microalbumin 9.3 mg/L Urine Microalbumin/Creatinine Ratio 9.7 mcg/mg (0-30.0) Urine Color YELLOW Urine Appearance CLEAR (CLEAR) Urine pH 5.0 (4.5-7.5) Urine Specific Sundown 1.020 (1.000-1.030) Urine Protein NEG (NEG) Urine Glucose (UA) NEG (NEG) Urine Ketones TRACE (NEG) Urine Occult Blood NEG (NEG) Urine Nitrite NEG (NEG) Urine Bilirubin NEG (NEG) Urine Urobilinogen NEG (NEG) Urine Leukocyte Esterase NEG (NEG) White Blood Count 7.40 K/uL (4.8-10.8) Red Blood Count 4.45 M/uL (4.7-6.1) Hemoglobin 13.1 g/dL (14.0-18.0) Hematocrit 38.4 % (42-52) Mean Corpuscular Volume 86.3 fL (80-100) Mean Corpuscular Hemoglobin 29.4 pg (25-34) Mean Corpuscular Hemoglobin Concent 34.1 g/dl (32-36) Platelet Count 188 K/uL (130-400) Mean Platelet Volume 10.7 fL (7.4-10.4) Neutrophils (%) (Auto) 78.1 % Lymphocytes (%) (Auto) 11.5 % Monocytes (%) (Auto) 7.8 % Eosinophils (%) (Auto) 1.9 % Basophils (%) (Auto) 0.3 % Neutrophils # (Auto) 5.78 K/uL (1.4-6.5) Lymphocytes # (Auto) 0.85 K/uL (1.2-3.4) Monocytes # (Auto) 0.58 K/uL (0.11-0.59) Eosinophils # (Auto) 0.14 K/uL (0-0.5) Basophils # (Auto) 0.02 K/uL (0-0.2) RDW Standard Deviation 46.4 fL (36.4-46.3) RDW Coefficient of Variation 14.8 % (11.5-14.5) Immature Granulocyte % (Auto) 0.4 % Immature Granulocyte # (Auto) 0.03 K/uL (0.00-0.02) Prothrombin Time 21.6 SECONDS (9.0-12.0) Prothrombin Time INR 2.0 (0.9-1.1) PTT 33.6 SECONDS (21.0-31.0) Partial Thromboplastin Ratio 1.3 Albumin 3.5 gm/dl (3.4-5.0) Chemistry Specimen Hemolysis Test 08/21/16 01:30 08/22/16 13:41 08/29/16 14:13 White Blood Count 7.12 K/uL (4.8-10.8) Red Blood Count 4.25 M/uL (4.7-6.1) Hemoglobin 12.7 g/dL (14.0-18.0) Hematocrit 37.2 % (42-52) Mean Corpuscular Volume 87.5 fL (80-100) Mean Corpuscular Hemoglobin 29.9 pg (25-34) Mean Corpuscular Hemoglobin Concent 34.1 g/dl (32-36) Platelet Count 166 K/uL (130-400) Mean Platelet Volume 11.9 fL (7.4-10.4) Neutrophils (%) (Auto) 76.1 % Lymphocytes (%) (Auto) 11.4 % Monocytes (%) (Auto) 8.3 % Eosinophils (%) (Auto) 3.4 % Basophils (%) (Auto) 0.4 % Neutrophils # (Auto) 5.42 K/uL (1.4-6.5) Lymphocytes # (Auto) 0.81 K/uL (1.2-3.4) Monocytes # (Auto) 0.59 K/uL (0.11-0.59) Eosinophils # (Auto) 0.24 K/uL (0-0.5) Basophils # (Auto) 0.03 K/uL (0-0.2) RDW Standard Deviation 48.1 fL (36.4-46.3) RDW Coefficient of Variation 15.0 % (11.5-14.5) Immature Granulocyte % (Auto) 0.4 % Immature Granulocyte # (Auto) 0.03 K/uL (0.00-0.02) Erythrocyte Sedimentation Rate 12 mm/hr (0-14) Prothrombin Time 20.0 SECONDS (9.0-12.0) Prothrombin Time INR 1.8 (0.9-1.1) PTT 33.3 SECONDS (21.0-31.0) Partial Thromboplastin Ratio 1.3 Sodium Level 138 mmol/L (136-145) 137 mmol/L (136-145) Potassium Level 4.1 mmol/L (3.5-5.1) 4.4 mmol/L (3.5-5.1) Chloride Level 101 mmol/L (98-107) 98 mmol/L (98-107) Carbon Dioxide Level 29 mmol/L (21-32) 32 mmol/L (21-32) Anion Gap 8.0 mmol/L (3-11) 7.0 mmol/L (3-11) Blood Urea Nitrogen 15 mg/dl (7-18) 15 mg/dl (7-18) Creatinine 0.92 mg/dl (0.60-1.40) 0.92 mg/dl (0.60-1.40) Est Creatinine Clear Calc Drug Dose 109.1 ml/min 109.2 ml/min Estimated GFR () 102.2 102.2 Estimated GFR (Non- 88.2 88.2 BUN/Creatinine Ratio 15.9 (10-20) 16.0 (10-20) Random Glucose 300 mg/dl (70-99) 231 mg/dl (70-99) Uric Acid 4.7 mg/dl (2.6-7.2) Calcium Level 8.9 mg/dl (8.5-10.1) 9.6 mg/dl (8.5-10.1) Total Bilirubin 0.4 mg/dl (0.2-1) Aspartate Amino Transferase (AST) 14 U/L (15-37) Alanine Aminotransferase (ALT) 33 U/L (12-78) Alkaline Phosphatase 71 U/L (45-117) C-Reactive Protein 1.64 mg/dl (0-0.29) Total Protein 7.4 gm/dl (6.4-8.2) Albumin 3.7 gm/dl (3.4-5.0) Globulin 3.7 gm/dl (2.5-4.0) Albumin/Globulin Ratio 1.0 (0.9-2) Prostate Specific Antigen 0.024 ng/ml (0.000-4.000) Assessment & Plan Plan: He had a PSA today. He'll be notified as to results. He continues on the tamsulosin. I've asked that he make an appointment with Dr. Ramsay in 3 months. Today we reviewed a cancer survivorship care plan. A copy of the document was given the patient. He was also given a survivorship booklet. He understands that he'll be followed with recheck PSAs. He is going to continue on the hormonal suppression for 12-18 months. This is being given every [address] Ramsay office. We asked him to return to our office in 6 months. He may call our office if he has any questions or concerns. Total Time In Follow-Up I spent 20 minutes speaking to the patient and performing examination. I spent 20 minutes reviewing information, preparing the survivorship document, and completing this note. Copy To Tequila Eubanks M.D.; Ann Ramsay MD
== END | disposition home or self-care (01) ==
LOC: C.ONC 13:23
PROVIDERS: ATTEND Radiology Radiation Oncology
DX: Z08 Encounter for follow-up examination after completed treatment for malignant neoplasm (principal); Z92.3 Personal history of irradiation; Z85.46 Personal history of malignant neoplasm of prostate

== ENCOUNTER 2016-08-30 05:05 | Inpatient (IN) | payer OTHER, BC ==
[2016-08-17 14:26] VITALS: BMI 35.0
--- NOTE | 2016-08-17 15:17 | PAT Medication Instructions ---
Service Date Aug 17, 2016. Current Home Medication List Amlodipine Besylate (Norvasc), 2.5 MG PO QAM Aspirin (Aspirin Ec), 81 MG PO QAM Atorvastatin (Lipitor), 40 MG PO HS Calcium Carbonate-Vitamin D (Calcium 600+D), 1 TAB PO QAM Cholecalciferol (Vitamin D3), 1,000 UNIT PO QPM Degarelix Acetate (Firmagon), 1 DOSE IM DIRECTED Gabapentin (Neurontin), 100 MG PO BID Indomethacin (Indocin), 25-50 MG PO prn Metformin Hcl (Glucophage), 1,000 MG PO BID Quinapril Hcl (Accupril), 40 MG PO QPM Sitagliptin Phosphate (Januvia), 100 MG PO QPM Tamsulosin Hcl (Flomax), 0.4 MG PO QPM Warfarin Sod (Coumadin), 10 MG PO MWF Warfarin Sod (Coumadin), 5 MG PO Tues,Thus,Sat,Sun Medication Instructions For Your Scheduled Surgery Degarelix Acetate (Firmagon), 1 DOSE IM DIRECTED (patient will check with prescribing physician if this is okay to have prior to surgery) Indomethacin (Indocin), 25-50 MG PO prn (not taking currently) Warfarin Sod (Coumadin),(last dose will be 08/24/16 per Coumadin clinic instructions) - Hold the following medications 48 hours prior to surgery: Metformin Hcl (Glucophage), 1,000 MG PO BID - Hold the following medications evening prior to surgery: Quinapril Hcl (Accupril), 40 MG PO QPM - Hold the following medications the morning of surgery: Gabapentin (Neurontin), 100 MG PO BID Calcium Carbonate-Vitamin D (Calcium 600+D), 1 TAB PO QAM - Take the following medications the morning of surgery with a sip of water: Aspirin (Aspirin Ec), 81 MG PO QAM Amlodipine Besylate (Norvasc), 2.5 MG PO QAM - Take the following medications as scheduled the night before surgery: Tamsulosin Hcl (Flomax), 0.4 MG PO QPM Sitagliptin Phosphate (Januvia), 100 MG PO QPM Gabapentin (Neurontin), 100 MG PO BID Cholecalciferol (Vitamin D3), 1,000 UNIT PO QPM Atorvastatin (Lipitor), 40 MG PO HS If you have any questions please call us at [phone] or [phone] ( [place]) or [phone]
[2016-08-17 15:59] LABS: BASO % 0.3 %; BASO ABS # 0.02 K/uL (0-0.2); COMPLETE YES; EOS % 1.9 %; HEMATOCRIT 38.4 % (42-52); IG% 0.4 %; LYMPH % 11.5 %; LYMPH ABS # 0.85 K/uL (1.2-3.4); MEAN CELL VOLUME 86.3 fL (80-100); MEAN CORPUSCULAR HEMOGLOBIN 29.4 pg (25-34); MEAN CORPUSCULAR HGB CONC 34.1 g/dl (32-36); MEAN PLATELET VOLUME 10.7 fL (7.4-10.4); MONO % 7.8 %; NEUT % 78.1 %; PLATELET COUNT 188 K/uL (130-400); RED BLOOD COUNT 4.45 M/uL (4.7-6.1)
[2016-08-17 16:07] LABS: PARTIAL THROMBOPLASTIN RATIO 1.3; PROTHROMBIN TIME (PATIENT) 21.6 SECONDS (9.0-12.0)
[2016-08-17 16:07] LABS: URINE APPEARANCE CLEAR (CLEAR); URINE BILIRUBIN NEG (NEG); URINE COLOR YELLOW; URINE NITRITE NEG (NEG); UROBILINOGEN NEG (NEG); ZZUR CULT IF INDIC CLEAN CATCH NO
[2016-08-17 16:08] LABS: MANUAL MICROSCOPIC REQUIRED? NO; REVIEW REQ? NO
[2016-08-17 16:28] LABS: BUN/CREATININE RATIO 23.2 (10-20); CALCIUM 9.1 mg/dl (8.5-10.1); CREATININE 0.87 mg/dl (0.60-1.40); POTASSIUM 4.5 mmol/L (3.5-5.1)
[2016-08-17 19:02] LABS: ESTIMATED AVERAGE GLUCOSE 194 mg/dl; HA1C FLAG Normal (Normal)
[2016-08-22 14:27] LABS: CALCIUM 9.6 mg/dl (8.5-10.1); CREATININE 0.92 mg/dl (0.60-1.40); POTASSIUM 4.4 mmol/L (3.5-5.1)
--- NOTE | 2016-08-29 21:45 | HISTORY & PHYSICAL EXAMINATION ---
DATE OF ADMISSION: 08/30/2016 CHIEF COMPLAINT: Chronic right shoulder pain. HISTORY OF PRESENT ILLNESS: This is a 61-year-old male patient of Dr. Pelayo, complaining of chronic right shoulder pain, longstanding, now progressively getting worse. The patient has been diagnosed with end-stage osteoarthritis in his right shoulder. He has failed conservative treatment. The patient wishes to proceed with a right total shoulder arthroplasty. PAST MEDICAL HISTORY: Coronary artery disease status post an IA in 2009, hypertension, irregular heartbeat, chronic cough, carpal tunnel syndrome, diabetes mellitus, sciatica, obesity, kidney stones, prostate cancer, BPH. SOCIAL HISTORY: Nonsmoker, nondrinker. SURGICAL HISTORY: Bilateral knee surgery, left hip surgery, bilateral shoulder surgery, heart bypass surgery, thumb surgery and appendectomy. REVIEW OF SYSTEMS: The patient complains of chronic right shoulder pain. Otherwise, denies any shortness of breath, chest pain, nausea, vomiting or any other joint complaints. FAMILY HISTORY: Noncontributory. MEDICATIONS: Include Januvia 100 mg daily, quinapril 40 mg daily, Coumadin 10 mg Saturday and Saturday and 5 mg other days, tamsulosin 0.4mg daily, atorvastatin 40 mg daily, amlodipine 2.5 mg daily, gabapentin 100 mg t.i.d., aspirin 81 mg daily, metformin 1000 mg b.i.d. and Citrucel daily. ALLERGIES: No known drug allergies. PHYSICAL EXAMINATION: GENERAL: Well-developed, well-nourished 61-year-old male patient of Dr. Pelayo. He is alert and oriented x3 and pleasant. HEENT: Normocephalic, atraumatic. Extraocular motions are intact. Pupils are equal and reactive to light. HEART: regular Irregular heartbeat consistent with his past medical history. LUNGS: Clear. ABDOMEN: Soft and nontender, bowel sounds are present. EXTREMITIES: Right shoulder reveals active range of motion of 80 degrees, passively to 110. He has crepitation with passive range of motion and pain. He has got 3-4/5 strength in his right shoulder. NEUROLOGIC: Neurovascularly, he is intact in his right upper extremity. DIAGNOSES: Right shoulder end-stage osteoarthritis with insufficient rotator cuff. He also has a history of coronary artery disease status post an IA in 2009, irregular heartbeat, chronic cough, carpal tunnel syndrome, diabetes mellitus, sciatica, obesity, kidney stones, prostate cancer, enlarged prostate. PLAN: The patient was advised of his diagnosis. Indications, risks, benefits and postop course have all been reviewed. The patient wishes to proceed with a right reversed total shoulder arthroplasty. Necessary consent form, preoperative testing and clearances will be obtained. DURAN
[~2016-08-30] VITALS: Ht 182.9 cm; Wt 115.2 kg
[~2016-08-30 05:05] MED LIST changes: -ACET-1138 PO; -ACET1TAB84 PO; -GLIP-199 PO; +LACTATED RINGER'S 1000ML 1,000 ML IV SCH; -ONDA8TAB6 PO; -OXYSR10 PO; -RXC5 PO
[2016-08-30 05:34] VITALS: BP 163/99; PULSE 67; TEMP 36.4; O2SAT 95; BMI 35.0
[2016-08-30] MEDS ORDERED: GABAPENTIN 300 MG CAP PO SCH (06:00)
[2016-08-30] MEDS ORDERED: METOCLOPRAMIDE HCL 10 MG TAB PO SCH (06:00)
[2016-08-30] MEDS ORDERED: FAMOTIDINE 20 MG TAB PO SCH (06:00)
[2016-08-30] MEDS ORDERED: LACTATED RINGER'S 1000ML IV SCH (06:00)
[2016-08-30] MEDS ORDERED: ACETAMINOPHEN 500 MG TAB PO SCH (06:00)
[2016-08-30] MEDS ORDERED: CeleBREX 200 MG CAP PO SCH (06:00)
[2016-08-30] MEDS ORDERED: CEFAZOLIN 2000 MG/60 ML D5W 60 ML IV SCH (06:00)
[2016-08-30 06:18] LABS: INR 1.1 (0.9-1.1); PROTHROMBIN TIME (PATIENT) 11.4 SECONDS (9.0-12.0)
[2016-08-30] MEDS ORDERED: FENTANYL CITRATE INJ 50 MCG/1 ML 2 ML VIAL ONE ×2 (06:41→07:42)
[2016-08-30] MEDS ORDERED: MIDAZOLAM HCL 1 MG/ML 2ML VIAL ONE ×2 (06:41→07:16)
--- NOTE | 2016-08-30 07:18 | History & Physical Bridge Note ---
H&P Re-Evaluation Bridge Note: I have examined the patient, reviewed the History & Physical and in the interval since the performance of the History & Physical I have noted the following changes of clinical significance: No changes noted
[2016-08-30] MEDS ORDERED: ONDANSETRON INJ 2 MG/ML 2 ML VIAL IV PRN ×2 (08:00→11:00)
[2016-08-30] MEDS ORDERED: ATROPINE SULFATE 0.1 MG/ML 5ML SYR IV PRN (08:00)
[2016-08-30] MEDS ORDERED: EpHEDrine SULFATE INJ 50 MG/ML AMP IV PRN (08:00)
[2016-08-30] MEDS ORDERED: HYDROmorphone INJ 1 MG/ML SYR IV PRN (08:00)
[2016-08-30] MEDS ORDERED: LIDOCAINE HCL 2% 2 ML VIAL (20MG/ML) ONE (08:12)
[2016-08-30] MEDS ORDERED: DEXAMETHASONE SOD INJ 4 MG/ML VIAL ONE (08:12)
[2016-08-30] MEDS ORDERED: ROCURONIUM BROMIDE 10 MG/ML 5 ML VIAL ONE ×2 (08:12→09:14)
[2016-08-30] MEDS ORDERED: NEOSTIGMINE METHYLSULFATE 5 MG/5 ML SYR ONE (08:12)
[2016-08-30] MEDS ORDERED: GLYCOPYRROLATE INJ 0.2 MG/ML VIAL ONE ×2 (08:12→10:10)
[2016-08-30] MEDS ORDERED: PROPOFOL IV EMULSION 10 MG/ML 20 ML VIAL IV ONE ×2 (08:12→10:27)
[2016-08-30] MEDS ORDERED: ONDANSETRON INJ 2 MG/ML 2 ML VIAL ONE (08:12)
[2016-08-30] MEDS ORDERED: BACITRACIN 50000 UNIT VIAL IR ONE (10:20)
[2016-08-30] MEDS ORDERED: LABETALOL HCL IV 5 MG/ML 20ML ONE (10:29)
[2016-08-30] MEDS ORDERED: SOD PHOSPHATE/SOD BIPHOSPHATE ENEMA 132 ML BTL PR PRN (11:00)
[2016-08-30] MEDS ORDERED: BISACODYL 10 MG SUPP PR PRN (11:00)
[2016-08-30] MEDS ORDERED: NALOXONE HCL 0.4 MG/1 ML VIAL/CARP IV PRN (11:00)
[2016-08-30] MEDS ORDERED: MAGNESIUM HYDROXIDE SUSP 30 ML UDC PO PRN (11:00)
[2016-08-30] MEDS ORDERED: INDOMETHACIN 25 MG CAP PO PRN (11:00)
--- NOTE | 2016-08-30 11:02 | [facility] Operative Report ---
Operative Report Operative Date Aug 30, 2016. Pre-Operative Diagnosis Right Shoulder End-Stage Osteoarthritis with Insufficient Rotator Cuff Post-Operative Diagnosis same Procedure(s) Performed right reversed total shoulder replacement Surgeon Dr. Perez Photographic Aide Surgeon(s) ELIZA Farrar Estimated Blood Loss 250 ml Findings massive rotator cuff tear end stage arthropathy djd Specimens A. Portion of Right Humeral Head Drains 2 hemovac Anesthesia general and regional Complication(s) None Disposition Recovery Room / PACU Indications pseudoparalysis and pain I attest to the content of the Intraoperative Record and any orders documented therein. Any exceptions are noted below.
[2016-08-30] MEDS: FENTANYL CITRATE INJ 50 MCG/1 ML 2 ML VIAL IV PRN ×2 (11:36→11:41)
--- NOTE | 2016-08-30 12:15 | Anesthesiology Progress Note ---
Anesthesia Post Op Note Date & Time Aug 30, 2016 at 12:11 Vital Signs Pain Intensity: 3 Vital Signs Past 12 Hours Date Time Temp Pulse Resp B/P Pulse Ox O2 Delivery O2 Flow Rate FiO2 08/30/16 11:45 65 17 155/78 93 Nasal Cannula 2 08/30/16 11:35 60 18 168/89 90 Nasal Cannula 2 08/30/16 11:25 60 14 162/92 98 Mask 10 08/30/16 11:15 58 18 160/91 98 Mask 10 08/30/16 11:05 57 18 161/96 99 Mask 10 08/30/16 10:57 36.5 71 14 179/102 96 Mask 10 08/30/16 05:34 36.4 67 20 163/99 95 Room Air Notes Mental Status: alert / awake / arousable, participated in evaluation Pt Amnestic to Procedure: Yes Nausea / Vomiting: adequately controlled Pain: adequately controlled Airway Patency, RR, SpO2: stable & adequate BP & HR: stable & adequate Hydration State: stable & adequate Anesthetic Complications: no major complications apparent Patient known to have periods of second degree (mobitz type 1) heart block as noted in a cardiology consult from April 2016. He has been asymptomatic and therefore cardiology did not think he was a candidate for pacemaker insertion at this time. Patient had one or two episodes where his HR went into high 30's/ low 40's but again he remained asymptomatic. He denied any dizziness, lightheadedness, vision changes, chest pain, shortness of breath. BP has remained stable. While I do feel he is stable for PACU discharge, I feel it is appropriate that the patient be taken to the telemetry unit given his history of heart block (if it would progress until a mobitz type 2 or complete heart block it can be identified sooner and treated immediately). Patient agrees with the plan and had all questions answered.
--- NOTE | 2016-08-30 12:21 | DIAGNOSTIC IMAGING REPORT ---
RIGHT SHOULDER MIN 2 VIEWS ROUTINE CLINICAL HISTORY: Postoperative evaluation of the right shoulder. COMPARISON: Right shoulder radiograph during or 2016 per FINDINGS: Alignment of the right shoulder arthroplasty is anatomic. No fracture or unexpected radiopaque foreign body is identified. Skin jerman and drains are present. There is evidence for previous distal right clavicular resection. IMPRESSION: Expected findings following right shoulder arthroplasty. Electronically signed by: Peter Britton M.D. 08/30/2016 12:19 PM Dictated Date/Time: 08/30/2016 12:19 PM
[2016-08-30] MEDS ORDERED: GLUCOSE 10 TABS/TUBE PO PRN (13:30)
[2016-08-30] MEDS ORDERED: DEXTROSE 50% 50 ML SYR IV PRN (13:30)
[2016-08-30] MEDS ORDERED: GLUCAGON FOR INJ 1 MG VIAL SQ PRN (13:30)
[2016-08-30] MEDS ORDERED: GLUCOSE 40% GEL 15 GM TUBE PO PRN (13:30)
--- NOTE | 2016-08-30 14:15 | Anesthesiology Progress Note ---
Anesthesia Progress Note Date of Service Aug 30, 2016. Progress Notes During patient's PACU stay, I asked that an ECG be performed during an episode when his HR dropped into the 30's and this was done and again showed 2nd degree heart block (mobitz type 1) that was seen previously and discussed in his cardiology consult in April 2016. This occurred when he was sleeping (which was noted last time) and again he was asymptomatic as his BP remained stable and when aroused patient again denied any dizziness, chest pain, lightheadedness , vision changes. I still feel it is appropriate for him to be followed on a monitored max to ensure the heart block does not further progress.
[2016-08-30 15:29] VITALS: BP 124/88; PULSE 77; TEMP 36.5; O2SAT 96; Ht 182.9 cm; Wt 115.2 kg
[2016-08-30] MEDS: ACETAMINOPHEN 500 MG TAB PO SCH ×2 (15:50→23:22)
[2016-08-30 16:00] VITALS: O2SAT 97
[2016-08-30] MEDS: POTASSIUM CHLORIDE INJ 10 MEQ in SODIUM CHLORIDE 0.9% 1000ML 1,000 ML IV SCH (16:38)
[2016-08-30] MEDS: OXYCODONE HCL IR 5 MG TAB (IMMEDIATE RELEASE) PO PRN ×2 (16:38→23:34)
[2016-08-30] MEDS: CEFAZOLIN IV 2,000 MG in DEXTROSE 5% 50ML 50 ML IV SCH ×2 (16:39→23:22)
[2016-08-30] MEDS: WARFARIN SOD 5 MG TAB PO SCH (16:41)
[2016-08-30] MEDS: INSULIN ASPART 100 UNITS/ML 3 ML PEN SC SCH ×2 (16:58→20:45)
--- NOTE | 2016-08-30 17:13 | Medical Consult ---
Consultation Date of Consultation: Aug 30, 2016. Attending Physician: Rusty Perez M.D. Reason for Consultation: medical mgmt History of Present Illness This is a 61 y/o male with PMHx of CAD s/p CABG, DM 2, PAF on Coumadin, HTN, Dyslipidemia and other problems as outlined below who presents POD 0 s/p R TSA performed by Dr. Perez. Pt is doing well post-operatively. He currently rates his pain at a dull 2/10 discomfort. He has been eating with no issues. Pt denies chest pain, palpitations, SOB, abd pain, N/V, bowel or bladder issues, LE edema, calf pain, lightheadedness/dizziness. Past Medical/Surgical History Medical Problems: (1) Atrial fibrillation Status: Chronic (2) Atrioventricular block, Mobitz type 1, Wenckebach Status: Chronic (3) CAD (coronary artery disease) Status: Chronic (4) Dyslipidemia Status: Chronic (5) Hypertension Status: Chronic (6) Kidney stone Status: Resolved (7) ALISSA (obstructive sleep apnea) Status: Chronic (8) Paroxysmal atrial fibrillation Status: Chronic (9) Prostate cancer Permanent Comment: Rising PSA, pretreatment PSA 25.5 Status post ultrasound-guided biopsies 10/14/2015 Biopsy Stage T2b Lupe grade 4+4 Prostate volume 49.8 Prostate density 0.5 Hormone suppression, Fermagon, planned for 12-18 months Status post prostate seed implant 04/19/2016. 43 seeds were placed. He received 8500 cGy. Status post completion of IMRT 08/01/2016 received 4619 cGy Status: Chronic (10) Prostate cancer Status: Chronic (11) Tachy-rodrigo syndrome Status: Chronic Surgical Problems: (1) H/O prostate biopsy Status: Chronic (2) H/O shoulder surgery Status: Chronic (3) S/P appendectomy Status: Chronic (4) S/P CABG x 3 Status: Chronic (5) S/P TKR (total knee replacement) Status: Chronic Family History Diabetes mellitus Social History Smoking Status: Never Smoker Alcohol Use: none Drug Use: none Marital Status: Housing Status: lives with family Occupation Status: retired Allergies Coded Allergies: No Known Allergies (Verified , 08/30/16) Home Medications Active Colace (Docusate Sodium) 100 Mg Cap 100 Mg PO BID Reported Firmagon (Degarelix Acetate) Unknown Strength Inj 1 Dose IM EVERY 28 DAYS Glucophage Er (Metformin HCl) 500 Mg Tab 1,000 Mg PO BID Vitamin D3 (Cholecalciferol) 1,000 Unit Tab 1,000 Unit PO QPM Januvia (Sitagliptin Phosphate) 100 Mg Tab 100 Mg PO QPM Calcium 600+D (Calcium Carbonate-Vitamin D) 1 Tab Tab 1 Tab PO QAM Indocin (Indomethacin) 25 Mg Cap 25-50 Mg PO UD PRN Norvasc (Amlodipine Besylate) 2.5 Mg Tab 2.5 Mg PO QAM Flomax (Tamsulosin Hcl) 0.4 Mg Cap 0.4 Mg PO QPM Lipitor (Atorvastatin Calcium) 40 Mg Tab 40 Mg PO HS Coumadin (Warfarin Sod) 5 Mg Tab 5 Mg PO 5XWK EVERY DAY EXCEPT SATURDAY AND FRIDAYS Coumadin (Warfarin Sod) 10 Mg Tab 10 Mg PO 2XWK CURRENTLY MONDAYS AND FRIDAYS Accupril (Quinapril HCl) 40 Mg Tab 40 Mg PO QPM Aspirin Ec (Aspirin) 81 Mg Tab 81 Mg PO QAM Neurontin (Gabapentin) 100 Mg Cap 100 Mg PO BID Current Inpatient Medications Current Inpatient Medications Medications (Trade) Dose Ordered Sig/Leilani Route Start Time Stop Time Status Last Admin Dose Admin Cefazolin Sodium (Ancef 2000mg/60 ml D5W) 60 ml @ 100 mls/hr PREOP IV 08/30/16 06:00 08/30/16 18:00 08/30/16 07:25 100 MLS/HR Acetaminophen (Tylenol Tab) 1,000 mg PREOP PO 08/30/16 06:00 08/30/16 18:00 08/30/16 06:17 1,000 MG Celecoxib (CeleBREX CAP) 200 mg PREOP PO 08/30/16 06:00 08/30/16 18:00 08/30/16 06:17 200 MG Famotidine (Pepcid Tab) 20 mg PREOP PO 08/30/16 06:00 08/30/16 18:00 08/30/16 06:16 20 MG Gabapentin (Neurontin Cap) 600 mg PREOP PO 08/30/16 06:00 08/30/16 18:00 08/30/16 06:16 600 MG Metoclopramide HCl (Reglan Tab) 10 mg PREOP PO 08/30/16 06:00 08/30/16 18:00 08/30/16 06:16 10 MG Amlodipine Besylate (Norvasc Tab) 2.5 mg QAM PO 08/31/16 09:00 09/30/16 08:59 Aspirin (Ecotrin Tab) 81 mg QAM PO 08/31/16 09:00 09/30/16 08:59 Atorvastatin Calcium (Lipitor Tab) 40 mg HS PO 08/30/16 21:00 09/29/16 20:59 Cholecalciferol (Vitamin D Tab) 1,000 inter.unit QPM PO 08/30/16 21:00 09/29/16 20:59 Docusate Sodium (coLACE CAP) 100 mg BID PO 08/30/16 21:00 09/29/16 20:59 Gabapentin (Neurontin Cap) 100 mg BID PO 08/30/16 21:00 09/29/16 20:59 Indomethacin (Indocin Cap) `25-50mg for pain 25 mg ... BID PRN PO 08/30/16 11:00 09/29/16 10:59 Tamsulosin HCl (Flomax Cap) 0.4 mg QPM PO 08/30/16 21:00 09/29/16 20:59 Warfarin Sodium (Coumadin Tab) 5 mg SuTuThSa@1600 PO 08/30/16 16:00 09/29/16 15:59 08/30/16 16:41 5 MG Calcium/Vitamin D (Caltrate Plus Tab) 1 tab QAM PO 08/31/16 09:00 09/30/16 08:59 Enalapril Maleate (Vasotec Tab) 40 mg QPM PO 08/30/16 21:00 09/29/16 20:59 Warfarin Sodium (Coumadin Tab) 10 mg MoWeFr@1600 PO 08/31/16 16:00 09/30/16 15:59 Diphenhydramine HCl (Benadryl Cap) 25 mg Q8 PRN PO 08/30/16 11:00 09/29/16 10:59 Zolpidem Tartrate (Ambien Tab) 5 mg HSZ PRN PO 08/30/16 11:00 09/29/16 10:59 Ondansetron HCl (Zofran Inj) 4 mg Q6H PRN IV 08/30/16 11:00 09/29/16 10:59 Pantoprazole Sodium 40 mg 40 mg QAM PO 08/31/16 09:00 09/30/16 08:59 Potassium Chloride/Sodium Chloride (KCl Inj/Nss 1000ml) 1,005 ml @ 100 mls/hr Q10H3M IV 08/30/16 16:00 08/31/16 11:00 08/30/16 16:38 100 MLS/HR Oxycodone HCl (Roxicodone Immediate Rel Tab) `1-2 TABS FOR PAIN `1 TAB... Q4H PRN PO 08/30/16 11:00 09/13/16 10:59 08/30/16 16:38 5 MG Oxycodone HCl (Oxycontin Tab) 10 mg Q12 PO 08/30/16 21:00 09/13/16 20:59 Acetaminophen (Tylenol Tab) 1,000 mg Q8 PO 08/30/16 14:00 09/29/16 13:59 08/30/16 15:50 1,000 MG Morphine Sulfate (MoRPHine SULFATE INJ) 2 mg Q2H PRN IV 08/30/16 11:00 09/13/16 10:59 Naloxone HCl (Narcan Inj) 0.1 mg Q2M PRN IV 08/30/16 11:00 09/29/16 10:59 Magnesium Hydroxide (Milk Of Magnesia Susp) 30 ml Q6H PRN PO 08/30/16 11:00 09/29/16 10:59 Bisacodyl (Dulcolax Supp) 10 mg DAILY PRN [place] 08/30/16 11:00 09/29/16 10:59 Sodium Biphosphate/ Sodium Phosphate (Fleet Enema) 132 ml DAILY PRN [place] 08/30/16 11:00 09/29/16 10:59 Multivitamins 1 tab 1 tab DAILY PO 08/31/16 09:00 09/30/16 08:59 Cefazolin Sodium/ Dextrose (Ancef Iv/D5 50ml) 60 ml @ 100 mls/hr Q8H IV 08/30/16 16:00 08/31/16 00:35 08/30/16 16:39 100 MLS/HR Insulin Aspart (novoLOG ASPART) SLIDING SCALE G... ACHS SC 08/30/16 16:15 09/29/16 16:14 08/30/16 16:58 8 UNITS Morphine Sulfate (MoRPHine SULFATE INJ) 4 mg Q2H PRN IV 08/30/16 13:30 09/13/16 13:29 Glucose (Glucose 40% Gel) 15-30 GRAMS 15 GRAMS... UD PRN PO 08/30/16 13:30 09/29/16 13:29 Glucose (Glucose Chew Tab) 4-8 Tablets 4 Tabl... UD PRN PO 08/30/16 13:30 09/29/16 13:29 Dextrose (Dextrose 50% 50ML Syringe) 25-50ML OF 50% DW IV FOR... UD PRN IV 08/30/16 13:30 09/29/16 13:29 Glucagon (Glucagon Inj) 1 mg UD PRN SQ 08/30/16 13:30 09/29/16 13:29 Review of Systems Constitutional: No chills, No fatigue, No fever, No sweats, No weakness Eyes: No worsening of vision ENT: No hearing loss Respiratory: No cough Cardiovascular: No chest pain, No claudication, No edema Abdomen: No constipation, No diarrhea, No nausea, No pain, No vomiting Musculoskeletal: + joint pain (2/10 R shoulder pain), No calf pain, No swelling Genitourinary - Male: + problem reported (sams in place) Neurologic: No weakness Psychiatric: No depression symptoms Endocrine: No fatigue Hematologic / Lymphatic: No abnormal bleeding/bruising Integumentary: No new/changing skin lesions Physical Exam Date Time Temp Pulse Resp B/P Pulse Ox O2 Delivery O2 Flow Rate FiO2 08/30/16 15:29 36.5 77 12 124/88 96 Nasal Cannula 2.0 08/30/16 14:45 80 16 160/80 95 Nasal Cannula 2 08/30/16 14:15 72 18 160/85 95 Nasal Cannula 2 08/30/16 13:45 53 16 145/77 87 Nasal Cannula 2 08/30/16 13:30 36 15 146/71 92 Nasal Cannula 2 08/30/16 13:15 63 16 147/84 95 Nasal Cannula 2 08/30/16 13:00 41 16 126/76 95 Nasal Cannula 2 08/30/16 12:45 69 15 155/79 92 Nasal Cannula 2 08/30/16 12:35 66 19 153/92 92 Nasal Cannula 2 08/30/16 12:25 36.2 52 17 153/91 92 Nasal Cannula 2 08/30/16 12:15 59 16 137/81 95 Nasal Cannula 2 08/30/16 12:05 61 16 152/89 92 Nasal Cannula 2 08/30/16 11:55 64 17 145/89 93 Nasal Cannula 2 08/30/16 11:45 65 17 155/78 93 Nasal Cannula 2 08/30/16 11:35 60 18 168/89 90 Nasal Cannula 2 08/30/16 11:25 60 14 162/92 98 Mask 10 08/30/16 11:15 58 18 160/91 98 Mask 10 08/30/16 11:05 57 18 161/96 99 Mask 10 08/30/16 10:57 36.5 71 14 179/102 96 Mask 10 08/30/16 05:34 36.4 67 20 163/99 95 Room Air General Appearance: WD/WN, no apparent distress, + pertinent finding (Pt is sitting up in bed with R arm in sling) Head: normocephalic, atraumatic Eyes: normal inspection ENT: hearing grossly normal Neck: supple Respiratory/Chest: chest non-tender, lungs clear, normal breath sounds, no respiratory distress Cardiovascular: regular rate, rhythm, no edema, no murmur Abdomen/GI: normal bowel sounds, non tender, soft Back: normal inspection Extremities/Musculoskelatal: normal inspection, no calf tenderness, no pedal edema Neurologic/Psych: alert, normal mood/affect, oriented x 3 Skin: normal color, warm/dry Laboratory Results Last 24 Hours Test 08/30/16 05:30 08/30/16 05:49 08/30/16 12:03 08/30/16 14:59 Bedside Glucose 183 mg/dl 227 mg/dl 193 mg/dl Prothrombin Time 11.4 SECONDS Prothromb Time International Ratio 1.1 Activated Partial Thromboplast Time 26.2 SECONDS Partial Thromboplastin Ratio 1.0 Hepatitis C Antibody Screen NEG Test 08/30/16 16:07 Bedside Glucose 215 mg/dl Assessment & Plan Rt SHOULDER DJD/ROTATOR CUFF INSUFFICIENCY; S/P R TSA -POD 0; surgery performed by -post-operative pain well managed -monitor for acute blood loss with daily H&H -pt encouraged to utilize spirometry to prevent post-op infection -Coumadin and ASA have been restarted by ortho -PT/OT -activity and wound care orders per ortho protocol -will continue to follow DM2 -recent A1C 8.4 -hold metformin and Januvia -start ISS -continue to monitor BSG AC HS PAF ON COUMADIN -cont Coumadin -monitor INR daily -not on BB CORONARY ARTERY DISEASE -s/p CABG x 3 in 2009 -cont ASA; not on betablocker -pt currently denies acute coronary sxs HTN -BP stable -cont Norvasc and Accupril -monitor DYSLIPIDEMIA -cont statin DVT PROPHYLAXIS -per ortho protocol CODE STATUS -FULL CODE status DISPO -per ortho. Pt seen in collaboration with Dr. Rojas. ATTENDING ADDENDUM ; 61 yo M with hx of CAD S/P CABG, Paroxysmal Afib on Coumadin , s/p elective Rt shoulder replacement doing well post op no complain of chest pain or SOB rt shoulder pain well controlled with pain medications P/E: gen : no sign of distress HEENT ; sclera non icteric HT: regular s1/S2 Lungs: CTA abdomen: soft , non tender Ext : rt shoulder in sling , bandage and drain present neuro: no focal deficit A/P : Rt shoulder replacement surgery : POD # 1 recovering well post op cont management as per Ortho Type 2 Dm : BSG elevated ~200 Hb A1c ~8 on metformin did not take the Metformin for past 2 days for surgery insulin SSI adjusted pharmacy consulted for glycemic control PAF: cont on Coumadin Dr Pradhan will follow the patient from tomorrow 08/31/16
[2016-08-30] MEDS ORDERED: PHARMACY GLYCEMIC MGMT CONSULT PRN (18:33)
--- NOTE | 2016-08-30 18:48 | Pharmacy Progress Note ---
Glycemic Control Intl Consult Date of Service Aug 30, 2016. Scope Glycemic Pharmacist consulted by Dr Rojas on 08/30/16 for glycemic control and to write orders per [facility] inpatient glycemic control protocol Objective Weight (Kilograms): 118.400 Accuchecks BSG (last 24hrs): Test 08/30/16 05:30 08/30/16 12:03 08/30/16 14:59 08/30/16 16:07 Bedside Glucose 183 mg/dl (70-99) 227 mg/dl (70-99) 193 mg/dl (70-99) 215 mg/dl (70-99) HbA1c Test 08/17/16 15:20 Hemoglobin A1c 8.4 % (4.5-5.6) H Recent Pertinent Medications Outpatient Anti-diabetic Regimen: * metformin er 1000 mg BID plus Januvia 100 mg daily * A1c = 8.4 % 08/17/16 The patient is currently receiving: * Correctional Insulin: Novolog Correction per scale ACHS Goal Range: Low 100 mg/dL - High 140 mg/dL Correction Factor: 25 mg/dL/unit * Prandial insulin: Per carb ratio of 1 unit per 10 grams CHO consumed Risk Factors for Insulin Resistance: * Steroids: dexamethasone 4 mg IV x 1 in surgery * Infection: * Pressors: * IVF: NSS + 20 KCl at 100 mLs/hr * Recent Surgery: total shoulder * Diet: type 2 diabetic * Mechanical Ventilation: Assessment & Plan ASSESSMENT: * ADA & AACE recommend a goal blood sugar range 140-180 mg/dl for the majority of critically ill & non-critically ill patients. However, more stringent targets may be selected in individual cases. PLAN FOR INPATIENT GLYCEMIC CONTROL: * Holding outpatient oral diabetes medications * Correctional Insulin with NOVOLOG per scale ACHS * Goal Range: Low 100 mg/dL - High 140 mg/dL * Correction Factor: 20 mg/dL/unit * Nutritional / Prandial insulin per carb ratio of 1 unit per 7 grams CHO consumed * Please note that the plan above was derived based on current level of insulin resistance and hospital stress. These recommendations are appropriate for inpatient admission only. Plan of care upon discharge will need to be reassessed to avoid potential outpatient hypo/hyperglycemia. Thank you.
[2016-08-30 18:59] VITALS: BP 133/79; PULSE 68; TEMP 36.9; O2SAT 95
[2016-08-30] MEDS ORDERED: NURSING VERBAL MED ORDER ONE (20:30)
[2016-08-30] MEDS: OXYCODONE HCL 10 MG TABCR (OXYCONTIN) PO SCH (20:45)
[2016-08-30] MEDS: ATORVASTATIN 40 MG TAB PO SCH (20:46)
[2016-08-30] MEDS: DOCUSATE SODIUM 100 MG CAP PO SCH (20:46)
[2016-08-30] MEDS: GABAPENTIN 100 MG CAP PO SCH (20:46)
[2016-08-30] MEDS: ENALAPRIL MALEATE 10 MG TAB PO SCH (20:46)
[2016-08-30] MEDS: TAMSULOSIN HCL 0.4 MG CAP PO SCH (20:47)
[2016-08-30] MEDS: CHOLECALCIFEROL 1000 INTER.UNIT TAB PO SCH (20:47)
[2016-08-30] MEDS ORDERED: LANTUS PER UNIT CHARGE SQ SCH (21:00)
[2016-08-30 23:21] VITALS: BP 138/70; PULSE 65; TEMP 36.7; O2SAT 94
[2016-08-30] MEDS: ZOLPIDEM TARTRATE 5 MG TAB PO PRN (23:22)
[2016-08-31] VITALS (12 sets, daily range): BP systolic 120–166; BP diastolic 70–79; PULSE 59–83; TEMP 36.4–36.9; O2SAT 91–97
--- NOTE | 2016-08-31 02:24 | OPERATIVE REPORT ---
DATE OF OPERATION: 08/30/2016 INDICATION FOR PROCEDURE: The patient is a 61-year-old male with chronic disability with regard to his right shoulder. History of rotator cuff surgery in the past. The patient now has pseudoparalytic arm, severe pain, very limited function and radiographs demonstrating end-stage rotator cuff arthropathy, bone on bone glenohumeral and subacromial. PREOPERATIVE DIAGNOSES: End-stage rotator cuff arthropathy, right shoulder with end-stage glenohumeral degenerative joint disease, chronic rotator cuff tear, and pseudoparalytic shoulder. POSTOPERATIVE DIAGNOSES: Same including chronically ruptured biceps tendon. PROCEDURE: Right reverse total shoulder replacement. SURGEON: Dr. Perez. CRANE SERVICE TECHNICIAN: Piero Pham PA-C. ANESTHESIA: Regional block general. OPERATIVE PROCEDURE: The patient was taken to the operating room, anesthetized regional block and general anesthetic. He was positioned on the operating room table in a 30 degree beach chair position. A towel roll was placed in the medial border of his right scapula. He was translated to right side of the bed, so his shoulder could be manipulated off the bed as necessary. A foam headrest was placed. Protective eyewear was placed. TEDs and SCDs were placed. His right shoulder exam demonstrated that he had still pretty good passive range of motion with forward elevation to about 150 to 160 degrees. His external rotation was to at least 70 degrees, internal the same and abduction passively to 150 degrees. He had marked crepitation on range of motion. He had old saber scar left shoulder. The right shoulder was then sterilely prepped and draped with ChloraPrep. An anterior longitudinal incision was made in the deltopectoral interval. Skin was incised sharply. The fat was divided down the fascia. Subcutaneous bleeders were cauterized. The cephalic vein was dissected out and retracted laterally with the deltoid. The pectoralis muscle was retracted medially. The upper centimeter of the pectoralis was released for inferior exposure. The clavipectoral fascia was divided at the lateral margin of the strap muscles and the CA ligament was left intact. There was marked thickened, chronic bursitis noted. The patient had remnants of the inferior half of the subscapularis tendon that was still intact. Some muscle medially. The upper subscap was torn. The supraspinatus and infraspinatus were torn, he had teres minor remaining posteriorly. The glenohumeral joint with advanced DJD. The humeral head articulated [id number] with the acromion and with the glenoid which was also grade 4 [id number]. In the bicipital groove, there was no biceps. We did incise the transverse ligament in the area where the biceps would be and then did a subperiosteal release of the subscapularis and capsule off the lesser tuberosity to the articular margin area. I did tie off the circumflex vessels first and dissected down to the inferior capsule with Metzenbaum scissors and a Kitner elevator. I placed a blunt Rodrick retractor to protect the axillary nerve prior to the suction. Then I took down some of the anterior capsule off the neck of the humerus and released off the capsule off the neck for exposure. All the thickened bursa over the rotator cuff was resected and deltoid was released from the humerus. The axillary nerve was palpated. The humerus was then retracted posteriorly with a Fukuda retractor and then the glenoid labrum was resected circumferentially. There was a bony avulsion piece likely attached to some old infraspinatus tendon tissue which was resected. Some remnants of the rotator cuff supraspinatus were resected. There was no biceps tendon. Then I did a capsular release anteriorly-inferiorly and posterior-inferiorly. We used electrocautery on bone and also a Richardson elevator to work around the anterior-inferior and posterior-inferior glenoid, so we had a complete release. Then we went ahead to address the humeral head. The humerus was dislocated with extension and external rotation. The humeral head was very large, was least 56 mm in diameter, size. I used the Tornier Aequalis reversed glenoid system and the Tornier Flex shoulder system for the reversed humeral implant. So the guide for the humeral cut was set at 20 degrees of retroversion. The humeral head cut was made just above the level of the intact cuff tissue attachment resecting a fairly large area of the humeral head. All osteophytes were trimmed around the resected piece. The humerus was then retracted posterior to the glenoid with glenoid retractors. Good visualization of the glenoid was performed. I used a 29 mm baseplate. The central drill hole was made for the reamer. The reamer was used. This was eccentrically placed slightly anteriorly so that with the use of a +2 offset glenosphere we will be at the inferior rim of the natural glenoid. After the reamer was used for the baseplate and this was reamed about 10 degree inferior tilt then went ahead and widened the hole and placed the baseplate in position which was impacted into position. This was the 29 mm standard length glenoid baseplate. Then we used anterior and posterior compression screws of 20 and 18 mm, superior and inferior locking screws of 32 and 35 mm with excellent fixation of the baseplate. Then the glenosphere was impacted onto the baseplate and the screw was tightened with a tight fit of the screw. We did use the eccentric glenosphere. At this time, then attention was taken to the humerus preparation. I used a central awl followed by broaches and a size around 4-5 was the best fit, but the 4 final broach was tight, I felt there was a fairly thick hard metaphyseal bone and this 4 would fit satisfactorily. Then we used the eccentric high offset +0 reversed tray and set the offset to match the bone resection and tightened that down and did a trial reduction of 9 mm trial, reversed insert gave a good stability through full range of motion and no shuck and good soft tissue tension on the deltoid and the conjoined tendon. Then this was then redislocated using a bone hook and then the trials were removed and drill holes were made x2 through the bicipital groove around the lesser tuberosity, two #5 FiberWire sutures were passed this time. The canal was irrigated and the final component was assembled which was the reversed insert +9 mm assembled to the reversed tray a 3.5 offset +0 and the long 4B Ascend Flex stem. The final component was fully assembled, it was impacted in position at 20 degrees of retroversion. Then this was reduced to the glenoid and the stability was again verified. Then the subscap and capsular remnant that we had saved previously was sutured back to the lesser tuberosity area using the #5 FiberWire sutures in Crow-Shaan suture technique. A lateral row soft tissue fixation performed with [id number]-[id number] #2 FiberWire. Then the pectoralis was closed with jzmlot-rw-bnrym #2 Fiberwire and after copious irrigation, the 2 Hemovac drains were placed and the deltopectoral interval was closed with [id number]-[id number] #1 Vicryl sutures. Subcutaneous tissue closed with interrupted 2-0 Vicryl. Skin closed with jerman. Sterile dressings applied and the patient tolerated the procedure well. Estimated blood loss about 250 mL. ELIZA Farrar was my spa assistant manager. He functioned as spa assistant manager through the entire procedure. He assisted in soft tissue retraction, arm positioning, instrument management and performed the subcutaneous skin closure and will participate in some of the postoperative care of the patient. I attest to the content of the Intraoperative Record and any orders documented therein. Any exceptio ns are noted below.
[2016-08-31] MEDS: POTASSIUM CHLORIDE INJ 10 MEQ in SODIUM CHLORIDE 0.9% 1000ML 1,000 ML IV SCH (02:43)
[2016-08-31] MEDS: OXYCODONE HCL IR 5 MG TAB (IMMEDIATE RELEASE) PO PRN ×3 (04:25→23:11)
[2016-08-31] MEDS: ACETAMINOPHEN 500 MG TAB PO SCH ×3 (06:24→21:56)
[2016-08-31 06:56] LABS: HEMATOCRIT 31.8 % (42-52); MEAN CELL VOLUME 87.1 fL (80-100); MEAN CORPUSCULAR HEMOGLOBIN 29.9 pg (25-34); MEAN CORPUSCULAR HGB CONC 34.3 g/dl (32-36); MEAN PLATELET VOLUME 10.4 fL (7.4-10.4); PLATELET COUNT 163 K/uL (130-400); RED BLOOD COUNT 3.65 M/uL (4.7-6.1); WHITE BLOOD COUNT 7.87 K/uL (4.8-10.8)
[2016-08-31] MEDS: INSULIN ASPART 100 UNITS/ML 3 ML PEN SC SCH ×4 (07:00→21:55)
[2016-08-31 07:05] LABS: INR 1.1 (0.9-1.1); PROTHROMBIN TIME (PATIENT) 11.5 SECONDS (9.0-12.0)
[2016-08-31 07:37] LABS: BUN/CREATININE RATIO 14.3 (10-20); CALCIUM 8.4 mg/dl (8.5-10.1); CREATININE 0.84 mg/dl (0.60-1.40); POTASSIUM 3.7 mmol/L (3.5-5.1)
[2016-08-31] MEDS: MoRPHine SULFATE 4 MG/ML 1 ML CARP\\VIAL IV PRN ×2 (07:49→11:14)
[2016-08-31] MEDS: OXYCODONE HCL 10 MG TABCR (OXYCONTIN) PO SCH ×2 (07:51→19:59)
[2016-08-31] MEDS: MULTIVITAMIN TAB PO SCH (07:55)
[2016-08-31] MEDS: GABAPENTIN 100 MG CAP PO SCH ×2 (07:55→19:59)
[2016-08-31] MEDS: ASPIRIN 81 MG ECTAB PO SCH (07:55)
[2016-08-31] MEDS: DOCUSATE SODIUM 100 MG CAP PO SCH ×2 (07:56→19:59)
[2016-08-31] MEDS: CALCIUM 600MG + VIT D 400 IU TAB PO SCH (07:56)
[2016-08-31] MEDS: AMLODIPINE BESYLATE 5 MG TAB PO SCH (07:57)
[2016-08-31] MEDS: PANTOprazole SOD 40 MG TAB PO SCH (07:57)
--- NOTE | 2016-08-31 08:52 | Anesthesiology Progress Note ---
Anesthesia Post Op Note Date & Time Aug 31, 2016 at 08:51 Vital Signs Pain Intensity: 10.0 Vital Signs Past 12 Hours Date Time Temp Pulse Resp B/P Pulse Ox O2 Delivery O2 Flow Rate FiO2 08/31/16 07:24 36.7 59 20 124/70 97 Nasal Cannula 2.0 08/31/16 04:17 36.5 61 20 120/70 97 Nasal Cannula 2.0 08/31/16 04:00 Nasal Cannula 2.0 08/30/16 23:59 Nasal Cannula 2.0 08/30/16 23:21 36.7 65 20 138/70 94 Nasal Cannula 2.0 Notes Mental Status: alert / awake / arousable, participated in evaluation Pt Amnestic to Procedure: Yes Nausea / Vomiting: adequately controlled Pain: adequately controlled Airway Patency, RR, SpO2: stable & adequate BP & HR: stable & adequate Hydration State: stable & adequate Neuraxial Anesthesia: was administered, sensory block resolved Anesthetic Complications: no major complications apparent
[2016-08-31] MEDS: MoRPHine SULFATE 2 MG/ML CARP IV PRN ×2 (09:50→12:56)
--- NOTE | 2016-08-31 10:30 | Orthopedic Progress Note ---
Orthopedic Progress Note Date of Service Aug 31, 2016. Subjective Post OP Day: 1 Reports: pain controlled w PO medications, Denies: SOB, calf pain, chest pain, light headedness, nausea / vomiting Additional Notes: Some runs of A-Fib post op, medicine monitoring on telemetry. Pain is main issue. Will pull drain, less than 20cc output last shift. Objective N/V intact, dressing C/D/I, A&O x3, toes mobile sling in tact, fingers mobile Date Time Temp Pulse Resp B/P Pulse Ox O2 Delivery O2 Flow Rate FiO2 08/31/16 08:00 97 Nasal Cannula 2.0 08/31/16 07:24 36.7 59 20 124/70 97 Nasal Cannula 2.0 08/31/16 04:17 36.5 61 20 120/70 97 Nasal Cannula 2.0 08/31/16 04:00 Nasal Cannula 2.0 08/30/16 23:59 Nasal Cannula 2.0 08/30/16 23:21 36.7 65 20 138/70 94 Nasal Cannula 2.0 08/30/16 20:00 Nasal Cannula 2.0 08/30/16 18:59 36.9 68 14 133/79 95 Nasal Cannula 2.0 08/30/16 16:00 97 Nasal Cannula 2.0 08/30/16 15:29 36.5 77 12 124/88 96 Nasal Cannula 2.0 08/30/16 14:45 80 16 160/80 95 Nasal Cannula 2 08/30/16 14:15 72 18 160/85 95 Nasal Cannula 2 08/30/16 13:45 53 16 145/77 87 Nasal Cannula 2 08/30/16 13:30 36 15 146/71 92 Nasal Cannula 2 08/30/16 13:15 63 16 147/84 95 Nasal Cannula 2 08/30/16 13:00 41 16 126/76 95 Nasal Cannula 2 08/30/16 12:45 69 15 155/79 92 Nasal Cannula 2 08/30/16 12:35 66 19 153/92 92 Nasal Cannula 2 08/30/16 12:25 36.2 52 17 153/91 92 Nasal Cannula 2 08/30/16 12:15 59 16 137/81 95 Nasal Cannula 2 08/30/16 12:05 61 16 152/89 92 Nasal Cannula 2 08/30/16 11:55 64 17 145/89 93 Nasal Cannula 2 08/30/16 11:45 65 17 155/78 93 Nasal Cannula 2 08/30/16 11:35 60 18 168/89 90 Nasal Cannula 2 08/30/16 11:25 60 14 162/92 98 Mask 10 08/30/16 11:15 58 18 160/91 98 Mask 10 08/30/16 11:05 57 18 161/96 99 Mask 10 08/30/16 10:57 36.5 71 14 179/102 96 Mask 10 Laboratory Results 24 Hours: Test 08/31/16 06:15 Hematocrit 31.8 % Hemoglobin 10.9 g/dL Prothromb Time International Ratio 1.1 Prothrombin Time 11.5 SECONDS Assessment & Plan Assessment: POD #1, Rt reversed tsa Plan: Limited PT/ OT as ordered. NO formal PT until f/u in office, just limited exercises as taught in hospital DVT proph- Coumadin As per medicine. D/C planning- Home when medically stable. Inhouse Planning Pain Management: Oxycontin, Morphine, PO Tylenol, Oxy IR DVT Prophylaxis: TEDs, SCDs, Coumadin Discharge Planning Discharge Planning: home
--- NOTE | 2016-08-31 10:31 | Discharge Instructions ---
Discharge Instructions Admission Reason for Admission: Right Shoulder Rotator Cuff Arthropathy Discharge Discharge Diagnosis / Problem: Rt reversed TSA Discharge Goals Goal(s): Improve function Activity Recommendations Activity Limitations: as noted below . Instructions / Follow-Up Instructions / Follow-Up ACTIVITY RECOMMENDATIONS: SELF CARE INSTRUCTIONS AFTER TOTAL SHOULDER ARTHROPLASTY REVERSE A. You may do daily exercises as taught in physical therapy while in hospital. No lifting with the operative arm. B. You are to wear your sling/immobilizer at all times EXCEPT when performing your daily exercises and for hygiene purposes. C. You may perform dry, daily dressing changes. Please keep your incision covered. You may shower 48 hours after surgery. Do not apply soap or any ointment/ lotions directly over incision. Do not soak incision in bath tub/swimming pool. D. You may use ice as needed to operative shoulder. SPECIAL CARE INSTRUCTIONS: VERY IMPORTANT TO READ AND REVIEW A. There are a few signs you need to watch for after you are home. Call [facility] at [phone] if you experience any of the followin. Increased severe shoulder pain. Some pain is expected especially when you exercise. 2. Increased swelling in you shoulder or arm; pain or swelling in either upper extremity. 3. Any fluid drainage from the incision. 4. Shortness of breath or chest pain. B. Please call [facility] at [phone] if you have any questions or concerns about your operation or recovery. C. Call your physician if: 1. Temperature is greater than 101 degrees (F). 2. Pain is not relieved by prescribed pain medications. 3. Increase drainage or redness from incision. 4. Unanswered questions or concerns. FOLLOW UP VISIT: Please call [facility] at [phone] to schedule a follow up appointment with Dr. Perez or his PA in 12-14 days from your surgery date. Current Hospital Diet Patient's current hospital diet: Diabetes Type 2 Diet Discharge Diet Recommended Diet: AHA Diet (Heart Healthy) Procedures Procedures Performed: Right Total Shoulder Arthroplasty Reversed, Uncemented Pending Studies Studies pending at discharge: no Laboratory Results Hemoglobin A1c Test 08/17/16 15:20 Range/Units Estimated Average Glucose 194 mg/dl Hemoglobin A1c 8.4 H 4.5-5.6 % Medical Emergencies . Who to Call and When: Medical Emergencies: If at any time you feel your situation is an emergency, please call 911 immediately. . Non-Emergent Contact Non-Emergency issues call your: Primary Care Provider . "Provider Documentation" section prepared by Piero Pham. VTE Core Measure Inpt VTE Proph given/why not?: Warfarin (Coumadin), T.EKristie Naranjo, SCD's
--- NOTE | 2016-08-31 12:26 | Pharmacy Progress Note ---
Glycemic: Assessment & Plan Date of Service Aug 31, 2016. Assessment & Plan Outpatient Anti-diabetic Regimen: * Metformin ER 1000 mg PO BID * Januvia 100 mg PO daily * A1c = 8.4 % 08/17/16 ASSESSMENT: * Patient is a 61yo diabetic male admitted for right total shoulder arthroplasty. * Patient uses oral diabetic medications only as an outpatient, with suboptimal glycemic control as evidenced by recent A1c. Would prefer to see an A1c closer to 7 in this particular patient. * BSGs have been somewhat elevated post-op. Lantus added last evening x1 dose, and will now order daily Lantus to better control hyperglycemia. PLAN FOR INPATIENT GLYCEMIC CONTROL: * Holding outpatient oral diabetes medications * consider resuming oral meds tomorrow, prior to discharge? * Lantus 10 units SQ daily * Correctional Insulin with NOVOLOG per scale ACHS * Goal Range: Low 100 mg/dL - High 140 mg/dL * Correction Factor: 20 mg/dL/unit * Nutritional / Prandial insulin per carb ratio of 1 unit per 7 grams CHO consumed Recommendations for discharge: * With patient's elevated A1c (8.4%), outpatient regimen likely will require adjustment to optimize glycemic control. * Patient's current oral agents are already maximized, with suboptimal control. At this point, patient may require a SQ agent? Could consider: * Lantus 10 units SQ daily, or * Exenatide (Bydureon) 2 mg SQ once weekly * increased BSG monitoring while making any changes to regimen * close follow-up with PCP after discharge * Please note that the plan above was derived based on current level of insulin resistance and hospital stress. These recommendations are appropriate for inpatient admission only. Plan of care upon discharge will need to be reassessed to avoid potential outpatient hypo/hyperglycemia. Thank you.
[2016-08-31] MEDS: INSULIN GLARGINE SOLOSTAR 100 UNITS/ML 3 ML PEN SC SCH (12:45)
[2016-08-31] MEDS ORDERED: NURSING VERBAL MED ORDER ONE (13:45)
[2016-08-31] MEDS ORDERED: HYDROmorphone INJ 1 MG/ML SYR IV PRN ×2 (14:00→20:00)
[2016-08-31] MEDS ORDERED: WARFARIN SOD 10 MG TAB PO SCH (16:00)
--- NOTE | 2016-08-31 18:41 | Progress Note ---
Internal Med Progress Note Date of Service: Aug 31, 2016. Provider Documentation: SUBJECTIVE: Patient is doing well. pain has been increased in intensity at times. No BM yet. BP had been running low earlier. OBJECTIVE: Vital Signs-as noted below Examination: General Appearance: WD/WN, no apparent distress,Pt is sitting up in bed with Right arm in sling Head: normocephalic, atraumatic Eyes: normal inspection ENT: hearing grossly normal Neck: supple Respiratory/Chest: chest non-tender, lungs clear, normal breath sounds, no respiratory distress Cardiovascular: regular rate, rhythm, no edema, no murmur Abdomen/GI: normal bowel sounds, non tender, soft Back: normal inspection Extremities/Musculoskeletal: normal inspection, no calf tenderness, no pedal edema Neurologic/Psych: alert, normal mood/affect, oriented x 3 Skin: normal color, warm/dry Lab data as noted below. ASSESSMENT & PLAN: Right Shoulder Arthroplasty: POD # 1; surgery performed by -Post-operative pain well managed -Monitor for acute blood loss with daily H&H -Patient encouraged to utilize spirometry to prevent post-op infection -Coumadin and ASA have been restarted by ortho. daily INR -PT/OT -Activity and wound care orders per ortho protocol Diabetes Type II: Recent A1C 8.4 -Continue metformin and Januvia -Continue to monitor BSG AC HS and cover with Sliding scale. Hypertension: BP stable -Continue Norvasc and Accupril -Monitor BP Paroxysmal Atrial Fibrillation: Continue Coumadin -monitor INR daily -not on BB Dyslipidemia: Continue Statin. History CAD S/P CABG: s/p CABG x 3 in 2009. No acute cardiac symptoms -Continue ASA; not on beta-vivian DVT Prophylaxis: As per Surgical team. CODE STATUS: FULL CODE Disposition: Discharge plan as per Surgical team. Thank you for this consultation. We will follow the patient with you during their hospital stay. You can reach a member of the [facility]ist Team 25/02 via pager @ . Vital Signs: Date Time Temp Pulse Resp B/P Pulse Ox O2 Delivery O2 Flow Rate FiO2 09/01/16 16:00 Nasal Cannula 2.0 09/01/16 15:25 36.8 67 16 128/78 94 Room Air 09/01/16 12:14 36.6 69 18 107/67 93 09/01/16 12:00 Nasal Cannula 2.0 09/01/16 11:41 70 94 09/01/16 08:00 Nasal Cannula 2.0 09/01/16 07:55 37.0 77 16 138/75 92 Room Air 09/01/16 04:00 96 Nasal Cannula 2.0 09/01/16 03:06 36.9 80 17 144/80 92 Nasal Cannula 2.0 08/31/16 23:59 96 Nasal Cannula 2.0 08/31/16 23:21 36.9 83 20 154/74 94 Nasal Cannula 2.0 08/31/16 20:00 96 Nasal Cannula 2.0 08/31/16 19:29 36.7 75 18 166/79 97 Lab Results: Results Past 24 Hours Test 08/31/16 20:15 09/01/16 06:23 09/01/16 06:59 09/01/16 11:22 Range/Units Bedside Glucose 239 189 194 70-99 mg/dl White Blood Count 9.78 4.8-10.8 K/uL Red Blood Count 3.78 4.7-6.1 M/uL Hemoglobin 10.9 14.0-18.0 g/dL Hematocrit 32.8 42-52 % Mean Corpuscular Volume 86.8 80-100 fL Mean Corpuscular Hemoglobin 28.8 25-34 pg Mean Corpuscular Hemoglobin Concent 33.2 32-36 g/dl RDW Standard Deviation 48.9 36.4-46.3 fL RDW Coefficient of Variation 15.4 11.5-14.5 % Platelet Count 186 130-400 K/uL Mean Platelet Volume 10.4 7.4-10.4 fL Prothrombin Time 11.7 9.0-12.0 SECONDS Prothromb Time International Ratio 1.1 0.9-1.1 Sodium Level 134 136-145 mmol/L Potassium Level 4.1 3.5-5.1 mmol/L Chloride Level 100 98-107 mmol/L Carbon Dioxide Level 27 21-32 mmol/L Anion Gap 7.0 3-11 mmol/L Blood Urea Nitrogen 9 7-18 mg/dl Creatinine 0.75 0.60-1.40 mg/dl Est Creatinine Clear Calc Drug Dose 134.5 ml/min Estimated GFR () 113.2 Estimated GFR (Non- 97.6 BUN/Creatinine Ratio 12.5 10-20 Random Glucose 180 70-99 mg/dl Calcium Level 8.9 8.5-10.1 mg/dl Test 09/01/16 15:55 Range/Units Bedside Glucose 167 70-99 mg/dl
[2016-08-31] MEDS: ENALAPRIL MALEATE 10 MG TAB PO SCH (21:52)
[2016-08-31] MEDS: ATORVASTATIN 40 MG TAB PO SCH (21:52)
[2016-08-31] MEDS: TAMSULOSIN HCL 0.4 MG CAP PO SCH (21:52)
[2016-08-31] MEDS: CHOLECALCIFEROL 1000 INTER.UNIT TAB PO SCH (21:53)
[2016-08-31] MEDS: ZOLPIDEM TARTRATE 5 MG TAB PO PRN (23:10)
[2016-09-01] VITALS (10 sets, daily range): BP systolic 107–144; BP diastolic 67–80; PULSE 67–80; TEMP 36.6–37; O2SAT 92–96
[2016-09-01] MEDS: ACETAMINOPHEN 500 MG TAB PO SCH ×3 (05:41→20:51)
[2016-09-01 06:59] LABS: HEMATOCRIT 32.8 % (42-52); MEAN CELL VOLUME 86.8 fL (80-100); MEAN CORPUSCULAR HEMOGLOBIN 28.8 pg (25-34); MEAN CORPUSCULAR HGB CONC 33.2 g/dl (32-36); MEAN PLATELET VOLUME 10.4 fL (7.4-10.4); PLATELET COUNT 186 K/uL (130-400); RED BLOOD COUNT 3.78 M/uL (4.7-6.1); WHITE BLOOD COUNT 9.78 K/uL (4.8-10.8)
[2016-09-01 07:14] LABS: INR 1.1 (0.9-1.1); PROTHROMBIN TIME (PATIENT) 11.7 SECONDS (9.0-12.0)
[2016-09-01 07:31] LABS: BUN/CREATININE RATIO 12.5 (10-20); CALCIUM 8.9 mg/dl (8.5-10.1); CREATININE 0.75 mg/dl (0.60-1.40); POTASSIUM 4.1 mmol/L (3.5-5.1)
[2016-09-01] MEDS: OXYCODONE HCL 10 MG TABCR (OXYCONTIN) PO SCH ×2 (08:43→19:39)
[2016-09-01] MEDS: AMLODIPINE BESYLATE 5 MG TAB PO SCH (08:43)
[2016-09-01] MEDS: ASPIRIN 81 MG ECTAB PO SCH (08:43)
[2016-09-01] MEDS: CALCIUM 600MG + VIT D 400 IU TAB PO SCH (08:43)
[2016-09-01] MEDS: PANTOprazole SOD 40 MG TAB PO SCH (08:44)
[2016-09-01] MEDS: GABAPENTIN 100 MG CAP PO SCH ×2 (08:44→19:40)
[2016-09-01] MEDS: MULTIVITAMIN TAB PO SCH (08:48)
[2016-09-01] MEDS: INSULIN ASPART 100 UNITS/ML 3 ML PEN SC SCH ×4 (08:55→20:50)
[2016-09-01] MEDS: INSULIN GLARGINE SOLOSTAR 100 UNITS/ML 3 ML PEN SC SCH (08:56)
[2016-09-01] MEDS: DOCUSATE SODIUM 100 MG CAP PO SCH ×2 (12:34→19:39)
--- NOTE | 2016-09-01 14:16 | Pharmacy Progress Note ---
Glycemic: Assessment & Plan Date of Service Sep 01, 2016. Assessment & Plan Outpatient Anti-diabetic Regimen: * Metformin ER 1000 mg PO BID * Januvia 100 mg PO daily * A1c = 8.4 % 08/17/16 ASSESSMENT: * Patient is a 61yo diabetic male admitted for right total shoulder arthroplasty. * Patient uses oral diabetic medications only as an outpatient, with suboptimal glycemic control as evidenced by recent A1c. Would prefer to see an A1c closer to 7 in this particular patient. * BSGs have been somewhat elevated post-op. Daily Lantus started yesterday. PLAN FOR INPATIENT GLYCEMIC CONTROL: * Restart outpatient oral medications * Januvia 100mg PO Daily starting tomorrow morning * Metformin ER 1000mg PO BID starting tonight with dinner * Lantus 10 units SQ daily * Correctional Insulin with NOVOLOG per scale ACHS * Goal Range: Low 100 mg/dL - High 140 mg/dL * Correction Factor: 20 mg/dL/unit * Nutritional / Prandial insulin per carb ratio of 1 unit per 7 grams CHO consumed Recommendations for discharge: * With patient's elevated A1c (8.4%), outpatient regimen likely will require adjustment to optimize glycemic control. * Patient's current oral agents are already maximized, with suboptimal control. At this point, patient may require a SQ agent? Could consider: * Lantus 10 units SQ daily, or * Exenatide (Bydureon) 2 mg SQ once weekly * increased BSG monitoring while making any changes to regimen * close follow-up with PCP after discharge * Please note that the plan above was derived based on current level of insulin resistance and hospital stress. These recommendations are appropriate for inpatient admission only. Plan of care upon discharge will need to be reassessed to avoid potential outpatient hypo/hyperglycemia.
--- NOTE | 2016-09-01 14:29 | Orthopedic Progress Note ---
Orthopedic Progress Note Date of Service Sep 01, 2016. Subjective Post OP Day: 2 Reports: feeling well, pain controlled w PO medications (had a lot of pain last night and into the morning), Denies: SOB, calf pain, chest pain, light headedness, nausea / vomiting Objective calves soft nontender, N/V intact, capillary refill less than 2 sec., dressing C /D/I, A&O x3, toes mobile Date Time Temp Pulse Resp B/P Pulse Ox O2 Delivery O2 Flow Rate FiO2 09/01/16 12:14 36.6 69 18 107/67 93 09/01/16 12:00 Nasal Cannula 2.0 09/01/16 11:41 70 94 09/01/16 08:00 Nasal Cannula 2.0 09/01/16 07:55 37.0 77 16 138/75 92 Room Air 09/01/16 04:00 96 Nasal Cannula 2.0 09/01/16 03:06 36.9 80 17 144/80 92 Nasal Cannula 2.0 08/31/16 23:59 96 Nasal Cannula 2.0 08/31/16 23:21 36.9 83 20 154/74 94 Nasal Cannula 2.0 08/31/16 20:00 96 Nasal Cannula 2.0 08/31/16 19:29 36.7 75 18 166/79 97 08/31/16 16:00 96 Nasal Cannula 2.0 08/31/16 15:53 36.4 66 18 132/72 96 08/31/16 14:58 66 95 Laboratory Results 24 Hours: Test 09/01/16 06:23 Hematocrit 32.8 % Hemoglobin 10.9 g/dL Prothromb Time International Ratio 1.1 Prothrombin Time 11.7 SECONDS Assessment & Plan Assessment: POD #2, Rt reversed tsa Plan: Limited PT/ OT as ordered. NO formal PT until f/u in office, just limited exercises as taught in hospital DVT proph- Coumadin As per medicine. D/C planning- Home when medically stable. Inhouse Planning Pain Management: Oxycontin, PO Tylenol, Oxy IR DVT Prophylaxis: TEDs, SCDs, Coumadin Discharge Planning Discharge Planning: home
[2016-09-01] MEDS: WARFARIN SOD 5 MG TAB PO SCH (16:01)
[2016-09-01] MEDS: METFORMIN HCL 500 MG TABCR PO SCH (17:14)
[2016-09-01] MEDS ORDERED: BISACODYL 10 MG SUPP PR STA (17:29)
[2016-09-01] MEDS ORDERED: DOCUSATE SODIUM/SENNA 50/8.6MG TAB PO ONE (17:30)
[2016-09-01] MEDS ORDERED: POLYETHYLENE (MIRALAX) 17 GM PACK PO SCH (17:30)
[2016-09-01] MEDS ORDERED: POLYETHYLENE (MIRALAX) 17 GM PACK ONE (17:31)
--- NOTE | 2016-09-01 17:39 | Progress Note ---
Internal Med Progress Note Date of Service: Sep 01, 2016. Provider Documentation: SUBJECTIVE: Patient is doing well.Pain has been tolerable today.. No BM yet. BP had been running low earlier. Has been ambulating in the hallway. No other new change or complaint. OBJECTIVE: Vital Signs-as noted below Examination: General Appearance: WD/WN, no apparent distress,Pt is sitting up in bed with Right arm in sling Head: normocephalic, atraumatic Eyes: normal inspection ENT: hearing grossly normal Neck: supple Respiratory/Chest: chest non-tender, lungs clear, normal breath sounds, no respiratory distress Cardiovascular: regular rate, rhythm, no edema, no murmur Abdomen/GI: normal bowel sounds, non tender, soft Back: normal inspection Extremities/Musculoskeletal: normal inspection, no calf tenderness, no pedal edema Neurologic/Psych: alert, normal mood/affect, oriented x 3 Skin: normal color, warm/dry Lab data as noted below. ASSESSMENT & PLAN: Right Shoulder Arthroplasty: POD # 2; surgery performed by -Post-operative pain well managed -Monitor for acute blood loss with daily H&H -Patient encouraged to utilize spirometry to prevent post-op infection -Coumadin and ASA have been restarted by ortho. daily INR -PT/OT -Activity and wound care orders per ortho protocol -Added stool softeners to help BM. Diabetes Type II: Recent A1C 8.4 -Continue metformin and Januvia -Continue to monitor BSG AC HS and cover with Sliding scale. Hypertension: BP stable -Continue Norvasc and Accupril -Monitor BP Paroxysmal Atrial Fibrillation: Continue Coumadin -monitor INR daily -not on BB Dyslipidemia: Continue Statin. History CAD S/P CABG: s/p CABG x 3 in 2009. No acute cardiac symptoms -Continue ASA; not on beta-vivian DVT Prophylaxis: As per Surgical team. CODE STATUS: FULL CODE Disposition: Discharge plan as per Surgical team. Thank you for this consultation. We will follow the patient with you during their hospital stay. [facility] via pager @ . Vital Signs: Date Time Temp Pulse Resp B/P Pulse Ox O2 Delivery O2 Flow Rate FiO2 09/01/16 16:00 Nasal Cannula 2.0 09/01/16 15:25 36.8 67 16 128/78 94 Room Air 1/28/17 12:14 36.6 69 18 107/67 93 09/01/16 12:00 Nasal Cannula 2.0 09/01/16 11:41 70 94 09/01/16 08:00 Nasal Cannula 2.0 09/01/16 07:55 37.0 77 16 138/75 92 Room Air 09/01/16 04:00 96 Nasal Cannula 2.0 09/01/16 03:06 36.9 80 17 144/80 92 Nasal Cannula 2.0 08/31/16 23:59 96 Nasal Cannula 2.0 08/31/16 23:21 36.9 83 20 154/74 94 Nasal Cannula 2.0 08/31/16 20:00 96 Nasal Cannula 2.0 08/31/16 19:29 36.7 75 18 166/79 97 Lab Results: Results Past 24 Hours Test 08/31/16 20:15 09/01/16 06:23 09/01/16 06:59 09/01/16 11:22 Range/Units Bedside Glucose 239 189 194 70-99 mg/dl White Blood Count 9.78 4.8-10.8 K/uL Red Blood Count 3.78 4.7-6.1 M/uL Hemoglobin 10.9 14.0-18.0 g/dL Hematocrit 32.8 42-52 % Mean Corpuscular Volume 86.8 80-100 fL Mean Corpuscular Hemoglobin 28.8 25-34 pg Mean Corpuscular Hemoglobin Concent 33.2 32-36 g/dl RDW Standard Deviation 48.9 36.4-46.3 fL RDW Coefficient of Variation 15.4 11.5-14.5 % Platelet Count 186 130-400 K/uL Mean Platelet Volume 10.4 7.4-10.4 fL Prothrombin Time 11.7 9.0-12.0 SECONDS Prothromb Time International Ratio 1.1 0.9-1.1 Sodium Level 134 136-145 mmol/L Potassium Level 4.1 3.5-5.1 mmol/L Chloride Level 100 98-107 mmol/L Carbon Dioxide Level 27 21-32 mmol/L Anion Gap 7.0 3-11 mmol/L Blood Urea Nitrogen 9 7-18 mg/dl Creatinine 0.75 0.60-1.40 mg/dl Est Creatinine Clear Calc Drug Dose 134.5 ml/min Estimated GFR () 113.2 Estimated GFR (Non- 97.6 BUN/Creatinine Ratio 12.5 10-20 Random Glucose 180 70-99 mg/dl Calcium Level 8.9 8.5-10.1 mg/dl Test 09/01/16 15:55 Range/Units Bedside Glucose 167 70-99 mg/dl
[2016-09-01] MEDS: ATORVASTATIN 40 MG TAB PO SCH (19:39)
[2016-09-01] MEDS: TAMSULOSIN HCL 0.4 MG CAP PO SCH (19:39)
[2016-09-01] MEDS: CHOLECALCIFEROL 1000 INTER.UNIT TAB PO SCH (19:40)
[2016-09-01] MEDS: ENALAPRIL MALEATE 10 MG TAB PO SCH (19:40)
[2016-09-01] MEDS ORDERED: ONDA8TAB6 PO ×2 (22:07)
[2016-09-01] MEDS ORDERED: RXC5 PO ×2 (22:07)
[2016-09-01] MEDS ORDERED: ACET-1138 PO ×2 (22:07)
[2016-09-01] MEDS ORDERED: OXYSR10 PO ×2 (22:07)
[2016-09-02 03:54] VITALS: BP 112/69; PULSE 74; TEMP 37.1; O2SAT 93
[2016-09-02 04:00] VITALS: O2SAT 96
[2016-09-02] MEDS: ACETAMINOPHEN 500 MG TAB PO SCH (05:50)
[2016-09-02 07:39] LABS: INR 1.1 (0.9-1.1); PROTHROMBIN TIME (PATIENT) 11.9 SECONDS (9.0-12.0)
[2016-09-02] MEDS: OXYCODONE HCL 10 MG TABCR (OXYCONTIN) PO SCH (07:43)
[2016-09-02] MEDS: AMLODIPINE BESYLATE 5 MG TAB PO SCH (07:44)
[2016-09-02] MEDS: ASPIRIN 81 MG ECTAB PO SCH (07:44)
[2016-09-02] MEDS: MULTIVITAMIN TAB PO SCH (07:45)
[2016-09-02] MEDS: GABAPENTIN 100 MG CAP PO SCH (07:45)
[2016-09-02] MEDS: METFORMIN HCL 500 MG TABCR PO SCH (07:46)
[2016-09-02] MEDS: CALCIUM 600MG + VIT D 400 IU TAB PO SCH (07:46)
[2016-09-02] MEDS: PANTOprazole SOD 40 MG TAB PO SCH (07:47)
[2016-09-02] MEDS: DOCUSATE SODIUM 100 MG CAP PO SCH (07:48)
[2016-09-02] MEDS: INSULIN ASPART 100 UNITS/ML 3 ML PEN SC SCH (07:50)
[2016-09-02] MEDS: INSULIN GLARGINE SOLOSTAR 100 UNITS/ML 3 ML PEN SC SCH (07:51)
[2016-09-02 07:53] VITALS: BP 129/58; PULSE 88; TEMP 36.4; O2SAT 93
[2016-09-02] MEDS ORDERED: DOCUSATE SODIUM/SENNA 50/8.6MG TAB PO SCH (09:00)
[2016-09-02] MEDS ORDERED: SITAGLIPTIN 100 MG TAB PO SCH (09:00)
--- NOTE | 2016-09-02 09:16 | Orthopedic Progress Note ---
Orthopedic Progress Note Date of Service Sep 02, 2016. Subjective Post OP Day: 3 Reports: feeling well, pain controlled w PO medications, Denies: SOB, calf pain , chest pain, light headedness, nausea / vomiting Objective calves soft nontender, N/V intact, capillary refill less than 2 sec., dressing C /D/I, A&O x3, toes mobile Date Time Temp Pulse Resp B/P Pulse Ox O2 Delivery O2 Flow Rate FiO2 09/02/16 08:00 Room Air 09/02/16 07:53 36.4 88 16 129/58 93 Room Air 09/02/16 04:00 96 Room Air 09/02/16 03:54 37.1 74 15 112/69 93 Room Air 09/01/16 23:59 96 Room Air 09/01/16 23:36 36.6 69 17 125/68 93 Room Air 09/01/16 20:00 96 Room Air 09/01/16 19:33 36.7 76 22 135/78 95 Room Air 09/01/16 16:00 Nasal Cannula 2.0 09/01/16 15:25 36.8 67 16 128/78 94 Room Air 09/01/16 12:14 36.6 69 18 107/67 93 09/01/16 12:00 Nasal Cannula 2.0 09/01/16 11:41 70 94 Laboratory Results 24 Hours: Test 09/02/16 06:50 Prothromb Time International Ratio 1.1 Prothrombin Time 11.9 SECONDS Assessment & Plan Assessment: POD #2, Rt reversed tsa Plan: Limited PT/ OT as ordered. NO formal PT until f/u in office, just limited exercises as taught in hospital DVT proph- Coumadin As per medicine. D/C planning- Home when medically stable plan for discharge today. Inhouse Planning Pain Management: Oxycontin, PO Tylenol, Oxy IR DVT Prophylaxis: TEDs, SCDs, Coumadin Discharge Planning Discharge Planning: home Pain Management: Oxycontin, PO Tylenol, Oxy IR DVT Prophylaxis: TEDs, Coumadin
[2016-09-02 09:28] VITALS: BP 129/58; PULSE 88; TEMP 36.4; O2SAT 93
--- NOTE | 2016-09-02 12:34 | Progress Note ---
Internal Med Progress Note Date of Service: Sep 02, 2016. Provider Documentation: SUBJECTIVE: Patient is doing well.Pain has been tolerable today.. Had BM last night and in AM today. BP had been running low earlier. Has been ambulating in the hallway. No other new change or complaint. OBJECTIVE: Vital Signs-as noted below Examination: General Appearance: WD/WN, no apparent distress,Pt is sitting up in bed with Right arm in sling Head: normocephalic, atraumatic Eyes: normal inspection ENT: hearing grossly normal Neck: supple Respiratory/Chest: chest non-tender, lungs clear, normal breath sounds, no respiratory distress Cardiovascular: regular rate, rhythm, no edema, no murmur Abdomen/GI: normal bowel sounds, non tender, soft Back: normal inspection Extremities/Musculoskeletal: normal inspection, no calf tenderness, no pedal edema Neurologic/Psych: alert, normal mood/affect, oriented x 3 Skin: normal color, warm/dry Lab data as noted below. ASSESSMENT & PLAN: Right Shoulder Arthroplasty: POD # 3; surgery performed by -Post-operative pain well managed -Monitor for acute blood loss with daily H&H -Patient encouraged to utilize spirometry to prevent post-op infection -Coumadin and ASA have been restarted by ortho. daily INR -PT/OT -Activity and wound care orders per ortho protocol -Added stool softeners to help BM. Diabetes Type II: Recent A1C 8.4 -Continue metformin and Januvia -Continue to monitor BSG AC HS and cover with Sliding scale. Hypertension: BP stable -Continue Norvasc and Accupril -Monitor BP Paroxysmal Atrial Fibrillation: Continue Coumadin -monitor INR daily -not on BB Dyslipidemia: Continue Statin. History CAD S/P CABG: s/p CABG x 3 in 2009. No acute cardiac symptoms -Continue ASA; not on beta-vivian DVT Prophylaxis: As per Surgical team. CODE STATUS: FULL CODE Disposition: Discharge plan as per Surgical team. Thank you for this consultation.Medical conditions are stable. We will follow the patient with you during their hospital stay. You [facility] via pager @ . Vital Signs: Date Time Temp Pulse Resp B/P Pulse Ox O2 Delivery O2 Flow Rate FiO2 09/02/16 09:28 36.4 88 16 93 Room Air 09/02/16 08:00 Room Air 09/02/16 07:53 36.4 88 16 129/58 93 Room Air 09/02/16 04:00 96 Room Air 09/02/16 03:54 37.1 74 15 112/69 93 Room Air 09/01/16 23:59 96 Room Air 09/01/16 23:36 36.6 69 17 125/68 93 Room Air 09/01/16 20:00 96 Room Air 09/01/16 19:33 36.7 76 22 135/78 95 Room Air 09/01/16 16:00 Nasal Cannula 2.0 09/01/16 15:25 36.8 67 16 128/78 94 Room Air Lab Results: Results Past 24 Hours Test 09/01/16 15:55 09/01/16 20:40 09/02/16 06:44 09/02/16 06:50 Range/Units Bedside Glucose 167 197 156 70-99 mg/dl Prothrombin Time 11.9 9.0-12.0 SECONDS Prothromb Time International Ratio 1.1 0.9-1.1
--- NOTE | 2016-09-16 15:30 | DISCHARGE SUMMARY ---
HISTORY OF PRESENT ILLNESS: This is a 61-year-old male patient of Dr. Perez's complaining of chronic right shoulder pain and weakness, longstanding, now progressively getting worse. The patient has been diagnosed with end-stage osteoarthritis and insufficient rotator cuff. The patient wishes to proceed with a right reversed total shoulder arthroplasty. PAST MEDICAL HISTORY: Coronary artery disease, status post an DC in 2009, hypertension, irregular heartbeat, chronic carpal tunnel syndrome, diabetes mellitus, sciatica, obesity, kidney stones, prostate cancer and BPH. POSTOPERATIVE COURSE: The patient underwent a right reverse total shoulder arthroplasty on 08/30/2016. He did have some postoperative atrial fibrillation. He was transferred to telemetry for monitoring. He continued his home Coumadin and aspirin dosages, upon discharge his atrial fibrillation was resolved. Otherwise, the patient will continue his preadmission medications and pain control with limited physical therapy. PHYSICAL EXAMINATION: On discharge, right shoulder incision was clean, dry and intact. Sofi were intact. Skin edges were approximated well. There was no redness or drainage. Neurologically and neurovascularly he is intact in his upper right extremity. DIAGNOSES: Status post right total shoulder arthroplasty with postoperative atrial fibrillation, resolved on discharge. He also has a history of coronary artery disease, status post an DC in 2009, hypertension, irregular heartbeat, chronic cough, carpal tunnel syndrome, diabetes mellitus, sciatica, obesity, kidney stones, prostate cancer and benign prostatic hypertrophy. PLAN: The patient was discharged home with limited home exercises. He will do no formal physical therapy for 6 weeks. He will continue his preadmission medications including his Coumadin and aspirin. He will follow up with his heart doctor as scheduled and Dr. Perez also as scheduled.
[2017-02-19] MEDS ORDERED: ACET1TAB84 PO (14:42)
[2017-02-19] MEDS ORDERED: GLIP-199 PO (14:42)
== END 2016-09-02 10:50 | disposition home or self-care (01) | DRG 483 ==
LOC: ENRESERVTM → ENRESERVDT → C.ACU 05:05 → C.2T 06:08 → EDBEDREQSVC 11:44 → EDBEDREQ 11:44 → C.2T 08-31 14:27
PROVIDERS: ADMIT Orthopaedic Surgery Sports Medicine; ATTEND Orthopaedic Surgery Sports Medicine
PROC: 0RRJ00Z Replacement of Right Shoulder Joint with Reverse Ball and Socket Synthetic Substitute, Open Approach (ICD-10-PCS; principal; 2016-08-30 07:30)
DX: M19.011 Primary osteoarthritis, right shoulder (principal); M75.101 Unspecified rotator cuff tear or rupture of right shoulder, not specified as traumatic; M75.51 Bursitis of right shoulder; R29.818 Other symptoms and signs involving the nervous system; C61 Malignant neoplasm of prostate; I44.1 Atrioventricular block, second degree; I48.0 Paroxysmal atrial fibrillation; I49.5 Sick sinus syndrome; I10 Essential (primary) hypertension; E78.5 Hyperlipidemia, unspecified; E11.65 Type 2 diabetes mellitus with hyperglycemia; E11.42 Type 2 diabetes mellitus with diabetic polyneuropathy; G47.33 Obstructive sleep apnea (adult) (pediatric); N40.0 Benign prostatic hyperplasia without lower urinary tract symptoms; I25.10 Atherosclerotic heart disease of native coronary artery without angina pectoris; E66.9 Obesity, unspecified; I25.2 Old myocardial infarction; Z68.35 Body mass index [BMI] 35.0-35.9, adult; Z95.1 Presence of aortocoronary bypass graft; Z91.19 Patient's noncompliance with other medical treatment and regimen; Z96.653 Presence of artificial knee joint, bilateral; Z96.642 Presence of left artificial hip joint; Z79.01 Long term (current) use of anticoagulants; Z79.82 Long term (current) use of aspirin; Z79.84 Long term (current) use of oral hypoglycemic drugs; Z79.899 Other long term (current) drug therapy

== ENCOUNTER → 2016-11-05 | Outpatient (CLI) | payer BC ==
[~2016-11-05] MED LIST changes: +ACET-1138 PO; +ACET1TAB84 PO; +GLIP-199 PO; -HYDR4TAB2 PO; -LACTATED RINGER'S 1000ML 1,000 ML IV SCH; +ONDA8TAB6 PO; +OXYSR10 PO; +RXC5 PO
[2016-11-05 12:35] LABS: BASO % 0.4 %; BASO ABS # 0.03 K/uL (0-0.2); COMPLETE YES; EOS % 3.9 %; HEMATOCRIT 42.1 % (42-52); IG% 0.3 %; LYMPH % 15.6 %; LYMPH ABS # 1.12 K/uL (1.2-3.4); MEAN CELL VOLUME 84.7 fL (80-100); MEAN CORPUSCULAR HGB CONC 31.8 g/dl (32-36); MEAN PLATELET VOLUME 11.1 fL (7.4-10.4); MONO % 4.5 %; NEUT % 75.3 %; PLATELET COUNT 218 K/uL (130-400); RED BLOOD COUNT 4.97 M/uL (4.7-6.1); WHITE BLOOD COUNT 7.19 K/uL (4.8-10.8)
[2016-11-05 13:08] LABS: ESTIMATED AVERAGE GLUCOSE 197 mg/dl; HA1C FLAG Normal (Normal)
[2016-11-05 13:21] LABS: ALB/GLOB RATIO 0.9 (0.9-2); ALKALINE PHOSPHATASE 65 U/L (45-117); ALT/SGPT 34 U/L (12-78); AST/SGOT 16 U/L (15-37); BLOOD UREA NITROGEN 13 mg/dl (7-18); BUN/CREATININE RATIO 15.2 (10-20); CALCIUM 9.4 mg/dl (8.5-10.1); CARBON DIOXIDE 30 mmol/L (21-32); CHLORIDE 103 mmol/L (98-107); CREATININE 0.87 mg/dl (0.60-1.40); GLUCOSE 211 mg/dl (70-99); HDL CHOLESTEROL 33 mg/dl; POTASSIUM 4.3 mmol/L (3.5-5.1); SODIUM 138 mmol/L (136-145)
[2016-11-05 13:23] LABS: CHOLESTEROL 123 mg/dl (0-200); CHOLESTEROL/HDL RATIO 3.7; LDL CHOLESTEROL CALCULATED 50 mg/dl; TRIGLYCERIDES 202 mg/dl (0-150); VERY LOW DENSITY LIPOPROT CALC 40 mg/dl
--- NOTE | 2016-11-12 07:03 | CODING QUERY MEDICAL NECESSITY ---
SUPPORTING DIAGNOSIS NEEDED Dr. Eubanks, A supporting diagnosis is required for the test/procedure performed on this patient in order for us to be reimbursed by the patient's insurance. Please provide a supporting diagnosis for the following test/procedure listed below next to the test name along with your signature. *If there is no additional diagnosis for this patient that would support the following test/procedure please document that below next to the test/procedure. Test(s)/Procedure(s) that require a supporting diagnosis: * ([id number]) VITAMIN D ASSAY DIAGNOSIS: DATE OF SERVICE: 11/05/16 Provider Signature: Date: Thank you Ash Gar [facility] Information Management Once completed, please kindly fax back to [phone] For questions please call [phone]
== END | disposition home or self-care (01) ==
LOC: C.LABPVFM 07:18
PROVIDERS: ATTEND Internal Medicine Cardiovascular Disease
DX: N20.0 Calculus of kidney (principal); I10 Essential (primary) hypertension; E11.40 Type 2 diabetes mellitus with diabetic neuropathy, unspecified; E11.65 Type 2 diabetes mellitus with hyperglycemia; I48.91 Unspecified atrial fibrillation; E78.5 Hyperlipidemia, unspecified; E55.9 Vitamin D deficiency, unspecified

== ENCOUNTER → 2017-02-19 | Outpatient (CLI) | payer BC ==
[2017-02-19 14:27] VITALS: BP 121/69; PULSE 65; TEMP 36.7; O2SAT 94
--- NOTE | 2017-02-19 17:14 | Radiation Oncology Follow-Up ---
Radiation Oncology Follow-Up Date of Visit Feb 19, 2017. Reason For Visit Six-month follow-up Radiation Completion Date seed implant on 04-19-2016 and finished IMRT 08-01-2016 Diagnosis (1) Prostate cancer Status: Resolved Onset Date: 10/14/2015 Location: left lobe of the prostate Histology Subtype: adenocarcinoma Stage: ll (B) Permanent Comment: Rising PSA, pretreatment PSA 25.5 Status post ultrasound-guided biopsies 10/14/2015 Biopsy Stage T2b Lupe grade 4+4 Prostate volume 49.8 Prostate density 0.5 Hormone suppression, Fermagon, planned for 12-18 months Status post prostate seed implant 04/19/2016. 43 seeds were placed. He received 8500 cGy. Status post completion of IMRT 08/01/2016 received 4619 cGy Last Edited By: Jasmyn Islas on Aug 10, 2016 09:37 History of Present Illness Mr. Fitzgerald is a 61-year-old male without a family history of prostate cancer. He was followed earlier with annual screenings with his most recent on 2010 and a prostate-specific antigen of 1.75. More recently he was seen by Dr. Ramsay for follow-up of penile curvature that he had noted in early 2013. He was seen in November 2014 with digital rectal exam at that time showing a prostate approximately 30 g and clinically benign with some asymmetry at the left base but no induration or nodularity. He was felt that the suspected case of Peyronie's disease and was put on a trial of Pentoxifylline. He returns for follow-up in March 2015 with some perceived improvement. He agreed to continue on Pentoxifylline but did not wish to consider plaque surgery. He had a repeat prostate-specific antigen on 09/12/2015 which was markedly elevated at 25.5. He therefore returned to Dr. Ramsay and was seen on 09/28/2015. Rectal exam at that time showed an enlarged gland and a 2 cm hard nodule in the mid gland. Given the digital rectal findings and change in prostate-specific antigen a biopsy was recommended and agreed upon by the patient. On 10/14/2015 the patient underwent an ultrasound-guided biopsy. Digital rectal exam at that time confirmed a 40 g prostate with central gland induration. The estimated prostate volume was 49.8 cm which translated into a prostate-specific antigen density of 0.5. No anechoic lesions were noted in the prostate margins versus within uniform. There was a very irregular echogenicity of the central gland however. 13 core biopsies of the prostate were obtained to biopsies each from the 6 quadrants with one from the midline line of the base. All biopsies from the right gland revealed benign tissue. All biopsies from the left gland and from the mid base were positive for adenocarcinoma Lupe grade 4+4. The percent of prostate cancer involvement ranged from 10% to 100% with all but to greater than 50% involvement. The patient returned to discuss the findings of the biopsy with Dr. Ramsay. She discussed treatment options with the patient. A staging workup was performed. This consisted of a bone scan on 11/27/2015 which showed no evidence of metastatic bony disease. He also underwent a CT scan of the abdomen and pelvis on 10/29/2015. This showed no evidence of nina or skeletal metastasis or extraprostatic extension. Mr. Fitzgerald wished to have further information on both surgical and radiation treatment options. It is for this reason that we were asked to see the patient in referral. All options of treatment were reviewed with the patient. Ultimately the decision was to treat with tri-modality. He would undergo hormone suppression followed by a prostate seed implant and then external beam therapy. Interim History He is doing well from urinary standpoint. He gave AUA score of 7. He completed expanded prostate cancer index composite for clinical practice and gave a score of 2 of 12 and urinary incontinent symptoms. He gave a score of one of 12 and urinary irritation symptoms. He was score of one of 12 and bowel symptoms. Vernon score of 11 of 12 sexual symptoms. He gave a score of 7 of 12 and hormonal vitality symptoms. His total was 22 of 60. He continues to receive the Fermagon. He will have another injection 03/12/2017. He states that this will be his last hormone suppression medication. He does continue on Flomax. He had stopped taking this for one month. He had increasing urinary symptoms. So he resumed the medication is doing better. He has noted there is shortening of the penis since completion of treatment. Allergies Coded Allergies: No Known Allergies (Verified , 08/30/16) Home Medications Scheduled Amlodipine Besylate (Norvasc), 2.5 MG PO QAM Aspirin (Aspirin Ec), 81 MG PO QAM Atorvastatin (Lipitor), 40 MG PO HS Calcium Carbonate-Vitamin D (Calcium 600+D), 1 TAB PO QAM Cholecalciferol (Vitamin D3), 2,000 UNIT PO QPM Degarelix Acetate (Firmagon), 1 DOSE IM EVERY 28 DAYS Gabapentin (Neurontin), 100 MG PO BID Glipizide (Glipizide Er), 1 TAB PO DAILY Metformin Hcl Er (Glucophage Er), 1,000 MG PO BID Quinapril Hcl (Accupril), 40 MG PO QPM Sitagliptin Phosphate (Januvia), 100 MG PO QPM Tamsulosin Hcl (Flomax), 0.4 MG PO QPM Warfarin Sod (Coumadin), 10 MG PO 2XWK Warfarin Sod (Coumadin), 5 MG PO 5XWK Scheduled PRN Acetaminophen (Tylenol Arthritis Ext Rel), 650 MG PO Q8H PRN for Moderate Pain Indomethacin (Indocin), 25-50 MG PO UD PRN for GOUT Review of Systems Gastrointestinal: Symptoms: WNL GI Comments: Stool softner BID;Having BMs but are very hard w/analgesia; Oral: Symptoms: No Problems Respiratory: Symptoms: SOB With Exertion Other Respiratory: "Chronic cough for clear sputum" Urinary: Symptoms: Nocturia Comments: occ dribbling, urgency, nocturia times 1 Skin: Symptoms: No Problems Physical Exam Vital Signs Date Time Temp Pulse Resp B/P (MAP) Pulse Ox O2 Delivery O2 Flow Rate FiO2 02/19/17 14:27 36.7 65 20 121/69 94 Pain: Side: Bilateral Patient Pain Scale: 0 - 10 Initial Pain Intensity: 0.0 Fatigue: None General Appearance: no apparent distress Eyes: normal inspection, EOMI ENT: normal ENT inspection, hearing grossly normal Neck: no adenopathy, thyroid normal Respiratory/Chest: lungs clear, no respiratory distress, no accessory muscle use Cardiovascular: regular rate, rhythm, no gallop, no murmur Abdomen: non tender, soft Neurologic/Psychiatric: no motor/sensory deficits, alert, normal mood/affect Skin: warm/dry Lymphatic: no adenopathy Laboratory Studies He had a PSA 08/29/2016. This was 0.024. Assessment & Plan Plan: He has a recheck appointment with Dr. Ramsay and the PSA in 3 weeks. We discussed having PSAs every 6 months. We reviewed the meaning of biochemical failure. He understands that the PSA currently is being affected by the hormone suppression. We discussed that peyman +2.0 would be considered biochemical failure. We also discussed types of treatment that are available for patients who develop biochemical failure. We asked her to return to our office in 1 year. He may call if he has any questions or concerns in the interim. Total Time In Follow-Up I spent 20 minutes speaking to the patient and performing examination. I spent 15 minutes reviewing information and completing this note. Copy To Tequila Eubanks M.D.; Ann Ramsay MD
== END | disposition home or self-care (01) ==
LOC: C.ONC 14:04
PROVIDERS: ATTEND Physician Assistant Medical
DX: Z08 Encounter for follow-up examination after completed treatment for malignant neoplasm (principal); Z92.3 Personal history of irradiation; Z85.46 Personal history of malignant neoplasm of prostate

== ENCOUNTER → 2017-03-11 | Outpatient (CLI) | payer BC ==
[~2017-03-11] MED LIST changes: -ACET-1138 PO; -DOCU-94 PO; -ONDA8TAB6 PO; -OXYSR10 PO; -RXC5 PO
[2017-03-11 13:15] LABS: ALT/SGPT 27 U/L (12-78); BLOOD UREA NITROGEN 14 mg/dl (7-18); BUN/CREATININE RATIO 16.8 (10-20); CARBON DIOXIDE 28 mmol/L (21-32); CHLORIDE 105 mmol/L (98-107); CREATININE 0.82 mg/dl (0.60-1.40); GLUCOSE 172 mg/dl (70-99); POTASSIUM 4.5 mmol/L (3.5-5.1); SODIUM 139 mmol/L (136-145)
[2017-03-11 13:18] LABS: ALB/GLOB RATIO 0.9 (0.9-2); ALKALINE PHOSPHATASE 63 U/L (45-117); AST/SGOT 15 U/L (15-37)
[2017-03-11 13:31] LABS: ESTIMATED AVERAGE GLUCOSE 174 mg/dl; HA1C FLAG Normal (Normal)
[2017-03-11 13:35] LABS: RATIO 20.4 mcg/mg (0-30.0)
== END | disposition home or self-care (01) ==
LOC: C.LABPVFM 08:44
PROVIDERS: ATTEND Urology
DX: C61 Malignant neoplasm of prostate (principal); E11.40 Type 2 diabetes mellitus with diabetic neuropathy, unspecified

== ENCOUNTER → 2017-05-27 | Outpatient (CLI) | payer BC ==
[2017-05-27 13:54] LABS: LYME DISEASE AB IGG NEG (NEG); LYME DISEASE AB IGM NEG (NEG)
== END | disposition home or self-care (01) ==
LOC: C.LABPVFM 10:52
PROVIDERS: ATTEND Nurse Practitioner Family
DX: T14.8XXA Other injury of unspecified body region, initial encounter (principal); W57.XXXA Bitten or stung by nonvenomous insect and other nonvenomous arthropods, initial encounter

== ENCOUNTER → 2017-10-30 | Outpatient (CLI) | payer BC ==
[2017-10-30 13:37] LABS: HEMOGLOBIN A1C 9.2 % (4.5-5.6)
[2017-10-30 16:36] LABS: ALBUMIN 3.7 gm/dl (3.4-5.0); ALKALINE PHOSPHATASE 66 U/L (45-117); ALT/SGPT 35 U/L (12-78); AST/SGOT 20 U/L (15-37); BLOOD UREA NITROGEN 11 mg/dl (7-18); CALCIUM 9.3 mg/dl (8.5-10.1); CARBON DIOXIDE 27 mmol/L (21-32); CHOLESTEROL 95 mg/dl (0-200); CREATININE 0.86 mg/dl (0.60-1.40); GLUCOSE 214 mg/dl (70-99); LDL CHOLESTEROL CALCULATED 37 mg/dl; POTASSIUM 4.4 mmol/L (3.5-5.1); SODIUM 136 mmol/L (136-145); TOTAL PROTEIN 7.5 gm/dl (6.4-8.2)
== END | disposition home or self-care (01) ==
LOC: C.LABPVFM 06:50
PROVIDERS: ATTEND Family Medicine
DX: E11.42 Type 2 diabetes mellitus with diabetic polyneuropathy (principal); I10 Essential (primary) hypertension; E11.65 Type 2 diabetes mellitus with hyperglycemia; C61 Malignant neoplasm of prostate; I49.5 Sick sinus syndrome; M10.9 Gout, unspecified; E78.5 Hyperlipidemia, unspecified

== ENCOUNTER 2017-11-12 22:29 | Inpatient (IN) | payer BC, OTHER ==
[~2017-11-12] VITALS: Ht 182.9 cm; Wt 120.7 kg
[2017-11-12] MEDS ORDERED: SODIUM CHLORIDE 0.9% 1000ML 1,000 ML IV STA (23:16)
--- NOTE | 2017-11-12 23:27 | EMERGENCY ROOM VISIT NOTE ---
History Report prepared by Sangita: Nhan Lagunas Under the Supervision of: Dr. Jersey Scanlon M.D. First contact with patient: 23:07 Chief Complaint: DIZZY Stated Complaint: DIZZY- CARDIAC HX Nursing Triage Summary: Patient ambulatory to triage with an upright and slow gait, states "I had a couple spells of dizziness yesterday. I figured it was an ear problem. Tonight, it hit me when I went to the treadmill. I sat down and took my pulse and it was 47. I think I am in atrial fibrillation again." Patient denies any pain or shortness of breath. Patient had an elevated A1C last week. History of Present Illness The patient is a 62 year old male who presents to the Emergency Room with complaints of constant dizziness beginning yesterday. The patient states that he had an episode of atrial fibrillation tonight which he believes might be the cause of his symptoms. He notes that he has had similar episodes of atrial fibrillation in the past and is currently on Coumadin. He reports that he has talked to his doctor about getting a pacemaker. The patient states that his heart rate is typically in the 70s, but notes that it was 47 when taken at home tonight. He reports that his sugars were high a few days ago, but states that his levels have since been in the 101-109 range after having been corrected. He notes that he thought that his symptoms were vertigo, and reports that his symptoms improve when he lies down and worsen when he sits up. He also complains of difficulty walking and vision changes, but denies any CP, SOB, abdominal pain, nausea, vomiting, back pain, urinary symptoms, diarrhea, leg edema, headache, and recent falls. The patient states that he has a history of a triple bypass 8 years ago. He notes that he has a family history of heart disease and diabetes. He reports that he no longer takes metoprolol and has not started any new medication recently. Source of History: patient Onset: yesterday Position: head Quality: other (dizziness) Timing: constant Modifying Factors (Worsening): other (sitting up) Modifying Factors (Relieving): other (lying down) Associated Symptoms: No headache, No chest pain, No SOB, No nausea, No vomiting, No abdominal pain, No back pain, No diarrhea, No urinary symptoms Note: The patient states that he had an episode of atrial fibrillation tonight and was bradycardic at home. He notes that his sugars have been lower for the last few days than they have been recently. He also complains of difficulty walking and vision changes. He also denies any leg edema. Review of Systems See HPI for pertinent positives & negatives. A total of 10 systems reviewed and were otherwise negative. Past Medical & Surgical Medical Problems: (1) Atrial fibrillation (2) Atrioventricular block, Mobitz type 1, Wenckebach (3) CAD (coronary artery disease) (4) DJD of right shoulder (5) Dyslipidemia (6) Hypertension (7) Kidney stone (8) ALISSA (obstructive sleep apnea) (9) Paroxysmal atrial fibrillation (10) Prostate cancer (11) Prostate cancer (12) Tachy-rodrigo syndrome Surgical Problems: (1) H/O prostate biopsy (2) H/O shoulder surgery (3) S/P appendectomy (4) S/P CABG x 3 (5) S/P TKR (total knee replacement) Family History Diabetes mellitus FH: CAD (coronary artery disease) FATHER ([place] in 60s) Hypertension Social History Smoking Status: Never Smoker Drug Use: none Marital Status: Housing Status: lives with family Occupation Status: retired Current/Historical Medications Scheduled Amlodipine Besylate (Norvasc), 2.5 MG PO QAM Aspirin (Aspirin Ec), 81 MG PO QAM Atorvastatin (Lipitor), 40 MG PO HS Gabapentin (Neurontin), 100 MG PO TID Glipizide (Glipizide Er), 10 MG PO DAILY Losartan Potassium (Cozaar), 50 MG PO DAILY Metformin Hcl Er (Glucophage Er), 1,000 MG PO BID Sitagliptin Phosphate (Januvia), 100 MG PO QPM Tamsulosin Hcl (Flomax), 0.4 MG PO QPM Warfarin Sod (Coumadin), 10 MG PO 2XWK Warfarin Sod (Coumadin), 5 MG PO 5XWK Scheduled PRN Acetaminophen (Tylenol Arthritis Ext Rel), 650 MG PO Q8H PRN for Moderate Pain Indomethacin (Indocin), 25-50 MG PO UD PRN for GOUT Allergies Coded Allergies: No Known Allergies (Verified , 11/13/17) Physical Exam Vital Signs Date Time Temp Pulse Resp B/P (MAP) Pulse Ox O2 Delivery O2 Flow Rate FiO2 11/13/17 02:09 50 17 155/83 95 Room Air 11/13/17 00:30 151/69 95 11/13/17 00:29 48 19 11/13/17 00:19 136/63 11/13/17 00:05 45 11/13/17 00:05 49 11/13/17 00:00 136/63 11/12/17 23:59 48 17 11/12/17 23:30 136/71 11/12/17 23:29 52 17 11/12/17 23:19 60 11/12/17 23:09 171/91 11/12/17 22:40 36.6 56 18 186/86 94 Room Air Physical Exam GENERAL: Patient is well appearing and in no acute distress, dizzy with sitting up. EYES: No scleral icterus, unremarkable pupils. ENT: Mucous membranes moist, no nasal congestion. NECK: No masses appreciated, no meningismus, trachea is midline. RESPIRATORY: No dyspnea. Clear to auscultation and equal bilaterally. No wheeze , no rhonchi. CARDIOVASCULAR: Regular rhythm and bradycardic. No murmurs, rubs, gallops appreciated. GASTROINTESTINAL: Abdomen soft, nontender, no peritonitis. Bowel sounds positive. No masses appreciated. BACK: No midline tenderness, no CVA tenderness EXTREMITIES: Normal motion all extremities, no cyanosis. Mild edema in bilaterally ankles. NEUROLOGIC: Alert and oriented, no acute motor or sensory deficits, no focal weakness, cranial nerves grossly intact. SKIN: No rash, no jaundice, no diaphoresis. Medical Decision & Procedures ER Provider Diagnostic Interpretation: Radiology results and stated below per my review and interpretation: X ray results are stated below per my interpretation: Chest: 1 view: No infiltrate, no effusion, normal cardiac border, sternal wires in place, left lower lobe scarring/atelectasis similar to chest X-Ray from August 2014. Laboratory Results Test 11/12/17 23:28 RDW Standard Deviation 46.0 fL (36.4-46.3) RDW Coefficient of Variation 14.6 % (11.5-14.5) White Blood Count 7.65 K/uL (4.8-10.8) Red Blood Count 4.58 M/uL (4.7-6.1) Hemoglobin 13.7 g/dL (14.0-18.0) Hematocrit 39.6 % (42-52) Mean Corpuscular Volume 86.5 fL (80-100) Mean Corpuscular Hemoglobin 29.9 pg (25-34) Mean Corpuscular Hemoglobin Concent 34.6 g/dl (32-36) Platelet Count 181 K/uL (130-400) Mean Platelet Volume 10.3 fL (7.4-10.4) Neutrophils (%) (Auto) 68.4 % Lymphocytes (%) (Auto) 21.7 % Monocytes (%) (Auto) 6.1 % Eosinophils (%) (Auto) 2.9 % Basophils (%) (Auto) 0.5 % Neutrophils # (Auto) 5.23 K/uL (1.4-6.5) Lymphocytes # (Auto) 1.66 K/uL (1.2-3.4) Monocytes # (Auto) 0.47 K/uL (0.11-0.59) Eosinophils # (Auto) 0.22 K/uL (0-0.5) Basophils # (Auto) 0.04 K/uL (0-0.2) Immature Granulocyte % (Auto) 0.4 % Immature Granulocyte # (Auto) 0.03 K/uL (0.00-0.02) Activated Partial Thromboplast Time 32.0 SECONDS (21.0-31.0) Partial Thromboplastin Ratio 1.2 Est Creatinine Clear Calc Drug Dose 71.5 ml/min Magnesium Level 2.1 mg/dl (1.8-2.4) Total Creatine Kinase 196 U/L (39-308) Creatine Kinase MB 3.7 ng/ml (0.5-3.6) Creatine Kinase MB Ratio 1.9 (0-3.0) Troponin I < 0.015 ng/ml (0-0.045) Thyroid Stimulating Hormone (TSH) 3.080 uIu/ml (0.300-4.500) Laboratory results as reviewed by me. Medications Administered Medications (Trade) Dose Ordered Sig/Leilani Route Start Time Stop Time Status Last Admin Dose Admin Sodium Chloride 1,000 ml @ 999 mls/hr Q1H1M STAT IV 11/12/17 23:16 18 00:16 DC 11/12/17 23:16 999 MLS/HR ECG Per My Interpretation Indication: other (dizziness) Rate (beats per minute): 53 Rhythm: atrial fibrillation (with slow ventricular response) Findings: no acute ischemic change, other (QTC 399) Comparison ECG Date: 08/30/2016 Change: Afib is new compared to prior. ED Course 2314: The patient was evaluated in room A11. A complete history and physical exam was performed. 0008: I reevaluated and updated the patient. His heart rate keeps dropping to the upper 30s/lower 40s. He is currently asymptomatic while lying in bed. 0047: Upon reevaluation, the patient is stable. Discussed results and treatment plan with the patient. He verbalized understanding and agreement with the treatment plan. Discussed the patient's case with ABUNDIO Licea. The patient will be evaluated for further management. Medical Decision Differential: Sepsis, Infectious (UTI/Pneumonia/Meningitis/etc), Metabolic/ Electrolyte Abnormality, Cardiac, Dehydration, Anemia, Hepatic, Endocrine, Toxicologic, Neurologic, amongst other pathologies entertained. 62 yr old male on coumadin for PAF though rarely in afib per patient arrives for evaluation weakness/lightheaded with any exertion. Can't even get to bathroom without help. This appears to be symptomatic afib with significant bradycardia. He is off all blocking agents already. BP good and symptoms essentially gone at rest. Initial labs unremarkable though INR a bit on low side. CXR without acute new findings. No evidence of ACS at this time. Patient comfortable with coming in. Likely will need pacer though not emergently in ER as BP/symptoms good at rest. Medication Reconcilliation Current Medication List: was personally reviewed by me Blood Pressure Screening Patient's blood pressure: Elevated blood pressure Elevated blood pressure will be evaluated by hospitalist. Consults Time Called: 14 Consulting Physician: ABUNDIO Licea Returned Call: [phone] Discussed the patient's case. The patient will be evaluated for further treatment and disposition. Impression Primary Impression: Symptomatic bradycardia Additional Impressions: Atrial fibrillation Renal insufficiency Hyperglycemia Scribe Attestation The scribe's documentation has been prepared under my direction and personally reviewed by me in its entirety. I confirm that the note above accurately reflects all work, treatment, procedures, and medical decision making performed by me. Departure Information Dispostion Being Evaluated By Hospitalist Referrals Tequila Eubanks M.D. (PCP) Patient Instructions My [facility] Problem Qualifiers
[2017-11-12 23:37] LABS: BASO % 0.5 %; BASO ABS # 0.04 K/uL (0-0.2); EOS % 2.9 %; EOS ABS # 0.22 K/uL (0-0.5); HEMATOCRIT 39.6 % (42-52); HEMOGLOBIN 13.7 g/dL (14.0-18.0); IG# 0.03 K/uL (0.00-0.02); LYMPH % 21.7 %; LYMPH ABS # 1.66 K/uL (1.2-3.4); MEAN CELL VOLUME 86.5 fL (80-100); MEAN CORPUSCULAR HEMOGLOBIN 29.9 pg (25-34); MEAN CORPUSCULAR HGB CONC 34.6 g/dl (32-36); MEAN PLATELET VOLUME 10.3 fL (7.4-10.4); MONO % 6.1 %; MONO ABS # 0.47 K/uL (0.11-0.59); NEUT % 68.4 %; NEUT ABS # 5.23 K/uL (1.4-6.5); PLATELET COUNT 181 K/uL (130-400); RED CELL DISTRIBUTION WIDTH CV 14.6 % (11.5-14.5); WHITE BLOOD COUNT 7.65 K/uL (4.8-10.8)
[2017-11-12 23:51] LABS: INR 1.9 (0.9-1.1)
[2017-11-12 23:53] LABS: BLOOD UREA NITROGEN 15 mg/dl (7-18); CARBON DIOXIDE 30 mmol/L (21-32); CREATININE 1.43 mg/dl (0.60-1.40); GLUCOSE 187 mg/dl (70-99); POTASSIUM 4.2 mmol/L (3.5-5.1); SODIUM 135 mmol/L (136-145)
[2017-11-13] VITALS (12 sets, daily range): BP systolic 127–163; BP diastolic 70–81; PULSE 43–79; TEMP 36.3–36.9; O2SAT 92–98; Ht 182.9 cm; Wt 120.7 kg
[2017-11-13 00:04] LABS: CKMB 3.7 ng/ml (0.5-3.6)
[2017-11-13] MEDS ORDERED: LOSA50TA6 PO (00:21)
[2017-11-13] MEDS ORDERED: ATROPINE SULFATE 0.1 MG/ML 5ML SYR IV PRN (02:15)
[2017-11-13] MEDS ORDERED: ACETAMINOPHEN 325 MG TAB PO PRN ×2 (02:15→13:15)
[2017-11-13] MEDS ORDERED: ALUMINUM/MAGNESIUM/SIMETH (MAALOX MAX) 30 ML UDC PO PRN (02:15)
[2017-11-13] MEDS ORDERED: MAGNESIUM HYDROXIDE SUSP 30 ML UDC PO PRN (02:15)
[2017-11-13] MEDS ORDERED: POLYETHYLENE (MIRALAX) 17 GM PACK PO PRN (02:15)
[2017-11-13] MEDS ORDERED: ONDANSETRON INJ 2 MG/ML 2 ML VIAL IV PRN (02:15)
--- NOTE | 2017-11-13 02:35 | History and Physical ---
History & Physical Date & Time of Service: Nov 13, 2017 at 02:18 Chief Complaint: Dizzy- Cardiac Hx Primary Care Physician: Tequila Eubanks M.D. History of Present Illness Source: patient Patient is a 62 year old male with a PMH of HTN, DM, ALISSA, Peripheral neuropathy , CAD w/ MD, and Prostate Cancer who presented to [facility] due to dizziness. His symptoms started on the evening of 11/12/2017 at 9pm. He was relaxing at home when he suddenly started feeling dizzy and felt that his balance was off. He went to take his blood pressure and it recorded his heart rate to be 47. He therefore came to the ED to be evaluated. He notes this has never happened to him before. He denies any visual changes, nausea, vomiting, syncope, palpitations, chest pain, cough, shortness of breath, headache, fevers, chills In the ED his vitals were stable except for a HR of 47. His EKG showed an irregular rhythm with a possible 3rd degree heart block. It was decided to admit the patient for the possible need of a pacemaker. 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 (12) Intramuscular hematoma (13) Kidney stone (14) ALISSA (obstructive sleep apnea) (15) Paroxysmal atrial fibrillation (16) Prostate cancer (17) Prostate cancer (18) Tachy-rodrigo syndrome Surgical Problems: (1) H/O prostate biopsy (2) H/O shoulder surgery (3) S/P appendectomy (4) S/P CABG x 3 (5) S/P TKR (total knee replacement) Family History Diabetes mellitus FH: CAD (coronary artery disease) FATHER ([place] in 60s) Hypertension Social History Smoking Status: Never Smoker Drug Use: none Marital Status: Housing status: lives with family Occupational Status: retired Immunizations History of Influenza Vaccine: No History of Tetanus Vaccine?: Yes History of Pneumococcal: Yes History of Hepatitis B Vaccine: No Allergies Coded Allergies: No Known Allergies (Verified , 11/13/17) Home Medications Scheduled Amlodipine Besylate (Norvasc), 2.5 MG PO QAM Aspirin (Aspirin Ec), 81 MG PO QAM Atorvastatin (Lipitor), 40 MG PO HS Gabapentin (Neurontin), 100 MG PO TID Glipizide (Glipizide Er), 10 MG PO DAILY Losartan Potassium (Cozaar), 50 MG PO DAILY Metformin Hcl Er (Glucophage Er), 1,000 MG PO BID Sitagliptin Phosphate (Januvia), 100 MG PO QPM Tamsulosin Hcl (Flomax), 0.4 MG PO QPM Warfarin Sod (Coumadin), 10 MG PO 2XWK Warfarin Sod (Coumadin), 5 MG PO 5XWK Scheduled PRN Acetaminophen (Tylenol Arthritis Ext Rel), 650 MG PO Q8H PRN for Moderate Pain Indomethacin (Indocin), 25-50 MG PO UD PRN for GOUT Review of Systems Constitutional: No fever, No chills, No weakness, No fatigue Eyes: No worsening of vision, No diplopia ENT: No hearing loss, No unusual epistaxis, No sore throat, No trouble swallowing Respiratory: No cough, No sputum, No shortness of breath, No dyspnea on exertion, No hemoptysis Cardiovascular: No chest pain, No edema, No palpitations Abdomen: No pain, No nausea, No vomiting, No diarrhea Musculoskeletal: No joint pain, No muscle pain, No swelling Genitourinary - Male: No hematuria, No dysuria, No urinary frequency Neurologic: + balance problems, No weakness, No numbness/tingling, No vertigo Endocrine: No fatigue, No excessive thirst Integumentary: No rash, No itch, No new/changing skin lesions Physical Exam Vital Signs Date Time Temp Pulse Resp B/P (MAP) Pulse Ox O2 Delivery O2 Flow Rate FiO2 11/13/17 02:09 50 17 155/83 95 Room Air 11/13/17 00:30 151/69 95 11/13/17 00:29 48 19 11/13/17 00:19 136/63 11/13/17 00:05 45 11/13/17 00:05 49 11/13/17 00:00 136/63 11/12/17 23:59 48 17 11/12/17 23:30 136/71 11/12/17 23:29 52 17 11/12/17 23:19 60 11/12/17 23:09 171/91 11/12/17 22:40 36.6 56 18 186/86 94 Room Air General Appearance: WD/WN, no apparent distress, + obese Head: normocephalic, atraumatic Eyes: normal inspection, sclerae normal ENT: hearing grossly normal, pharynx normal Neck: supple, thyroid normal, no JVD, no carotid bruits, trachea midline Respiratory/Chest: lungs clear, no respiratory distress, no accessory muscle use Cardiovascular: no edema, no murmur, normal peripheral pulses, + bradycardia, + pertinent finding (central sternotomy scar) Abdomen/GI: normal bowel sounds, non tender, soft, + distended Back: normal inspection, no muscle spasm Extremities/Musculoskelatal: no calf tenderness, no pedal edema, non-tender Neurologic/Psych: alert, normal mood/affect, oriented x 3 Skin: normal color, warm/dry, no rash Diagnostics Laboratory Results Results Past 24 Hours Test 11/12/17 23:28 Range/Units White Blood Count 7.65 4.8-10.8 K/uL Red Blood Count 4.58 4.7-6.1 M/uL Hemoglobin 13.7 14.0-18.0 g/dL Hematocrit 39.6 42-52 % Mean Corpuscular Volume 86.5 80-100 fL Mean Corpuscular Hemoglobin 29.9 25-34 pg Mean Corpuscular Hemoglobin Concent 34.6 32-36 g/dl Platelet Count 181 130-400 K/uL Mean Platelet Volume 10.3 7.4-10.4 fL Neutrophils (%) (Auto) 68.4 % Lymphocytes (%) (Auto) 21.7 % Monocytes (%) (Auto) 6.1 % Eosinophils (%) (Auto) 2.9 % Basophils (%) (Auto) 0.5 % Neutrophils # (Auto) 5.23 1.4-6.5 K/uL Lymphocytes # (Auto) 1.66 1.2-3.4 K/uL Monocytes # (Auto) 0.47 0.11-0.59 K/uL Eosinophils # (Auto) 0.22 0-0.5 K/uL Basophils # (Auto) 0.04 0-0.2 K/uL RDW Standard Deviation 46.0 36.4-46.3 fL RDW Coefficient of Variation 14.6 11.5-14.5 % Immature Granulocyte % (Auto) 0.4 % Immature Granulocyte # (Auto) 0.03 0.00-0.02 K/uL Prothrombin Time 19.4 9.0-12.0 SECONDS Prothromb Time International Ratio 1.9 0.9-1.1 Activated Partial Thromboplast Time 32.0 21.0-31.0 SECONDS Partial Thromboplastin Ratio 1.2 Sodium Level 135 136-145 mmol/L Potassium Level 4.2 3.5-5.1 mmol/L Chloride Level 101 98-107 mmol/L Carbon Dioxide Level 30 21-32 mmol/L Anion Gap 4.0 3-11 mmol/L Blood Urea Nitrogen 15 7-18 mg/dl Creatinine 1.43 0.60-1.40 mg/dl Est Creatinine Clear Calc Drug Dose 71.5 ml/min Estimated GFR () 59.6 Estimated GFR (Non- 51.4 BUN/Creatinine Ratio 10.4 10-20 Random Glucose 187 70-99 mg/dl Calcium Level 9.0 8.5-10.1 mg/dl Magnesium Level 2.1 1.8-2.4 mg/dl Total Creatine Kinase 196 39-308 U/L Creatine Kinase MB 3.7 0.5-3.6 ng/ml Creatine Kinase MB Ratio 1.9 0-3.0 Troponin I < 0.015 0-0.045 ng/ml Thyroid Stimulating Hormone (TSH) 3.080 0.300-4.500 uIu/ml Diagnostic Radiology CXR with LLL scar and sternal wires in place EKG EKG heart rate of 53 with 3rd degree heart block Impression Assessment and Plan 62 year old male with a PMH of afib, DM, HTN, Prostate cancer, ALISSA, Peripheral neuropathyand gout presented here with dizziness and was found to be in 3rd degree heart block. AV conduction delay w/ 3rd degree heart block - hx of triple bypass s/p MD in 2009 - atropine 0.5mg IV prn for symptomatic bradycardia, repeat to max of 3mg - no significant electrolyte abnormalities and TSH wnl - Admit to telemetry - Cardiology consult (Dr. Murillo is the patients dialysis chief equipment technician) - home meds held in case of pacemaker placement in the AM Hx of MD - hold aspirin and lipitor - negative troponin - denies any chest pain DM - hold home meds - ISS - on gabapentin for peripheral neuropathy HTN - well controlled currently - hold amlodipine and losartan Afib - INR of 1.9 - hold warfarin - trend INR Hx of Prostate Cancer - continue tamsulosin DVT prophylaxis - Warfarin w/ INR of 1.9 FULL CODE Resident Physician Supervision Note: I was present with Dr. Marsh during the history and exam. I discussed the case with the resident and agree with the findings and plan as documented in the note. Any exceptions or clarifications are listed here: 62 y/o M Hx CAD, HTN, DM II, chronic AF, heart block and chronic bradycardia. The pt had discussed pacer placement with his dialysis chief equipment technician 1 yr prior due to bradycardia. This had been postponed as he was asymptomatic and the bradycardia itself was found incidentally. He presents with lightheadedness/ dizziness which appears to correlate with bradycardia. He can improve the way he feels by walking around to increase his HR. He has not had chest pain. OE AAO x 3 S1,2 rodrigo CTAB NT, ND No CCE P: We will monitor the pt overnight and have consulted his dialysis chief equipment technician. It is likely that he now requires pacer placement for symptomatic bradycardia SS for DM INR is therapeutic presently Additional meds held pending review by his dialysis chief equipment technician Documented By: Dexter Love Resuscitation Status VTE Prophylaxis Will order VTE Prophylaxis: No Reason for no VTE drug order: Treatment not indicated Reason no Mechanical VTE Order: Treatment not indicated
[2017-11-13] MEDS ORDERED: GLUCOSE 40% GEL 15 GM TUBE PO PRN (03:45)
[2017-11-13] MEDS ORDERED: DEXTROSE 50% 50 ML SYR IV PRN (03:45)
[2017-11-13] MEDS ORDERED: GLUCOSE 10 TABS/TUBE PO PRN (03:45)
[2017-11-13] MEDS ORDERED: GLUCAGON FOR INJ 1 MG VIAL SQ PRN (03:45)
[2017-11-13] MEDS: INSULIN ASPART 100 UNITS/ML 3 ML PEN SC SCH ×4 (06:00→21:30)
--- NOTE | 2017-11-13 07:24 | DIAGNOSTIC IMAGING REPORT ---
CHEST ONE VIEW PORTABLE CLINICAL HISTORY: 62 years-old Male presenting with Dizziness. TECHNIQUE: Portable upright AP view of the chest was obtained. COMPARISON: 04/03/2016. FINDINGS: Median sternotomy wires and mediastinal surgical clips noted. Atherosclerosis of the aortic arch. Tortuosity of the descending thoracic aorta. Cardiac silhouette mildly enlarged. Bandlike opacity at the left lung base with slight hazy left basilar opacity. No large pneumothorax or pleural effusion. No large pneumothorax. Degenerative changes of the thoracic spine. Postsurgical changes of right shoulder arthroplasty. IMPRESSION: 1. Minimal left basilar opacities likely atelectasis. 2. Mild cardiomegaly. Electronically signed by: Moshe Yeung M.D. 11/13/2017 7:22 AM Dictated Date/Time: 11/13/2017 7:21 AM
[2017-11-13 07:36] LABS: HEMATOCRIT 37.9 % (42-52); HEMOGLOBIN 12.9 g/dL (14.0-18.0); MEAN CELL VOLUME 86.3 fL (80-100); MEAN CORPUSCULAR HEMOGLOBIN 29.4 pg (25-34); MEAN PLATELET VOLUME 9.9 fL (7.4-10.4); PLATELET COUNT 168 K/uL (130-400); RED CELL DISTRIBUTION WIDTH CV 14.6 % (11.5-14.5); RED CELL DISTRIBUTION WIDTH SD 45.8 fL (36.4-46.3); WHITE BLOOD COUNT 6.61 K/uL (4.8-10.8)
[2017-11-13 07:56] LABS: CALCIUM 8.6 mg/dl (8.5-10.1); CREATININE 0.95 mg/dl (0.60-1.40); POTASSIUM 4.2 mmol/L (3.5-5.1)
[2017-11-13] MEDS: SODIUM CHLORIDE 0.9% 1000ML 1,000 ML IV SCH ×2 (09:07→16:30)
--- NOTE | 2017-11-13 10:47 | Cardiology Consultation ---
Cardiology Consultation Date of Service Nov 13, 2017. (Purnima Daigle, DEISY) Cardiology Consultation Attendng Cosmetic Sales Assistant: Dr. Macias Requesting Physician: Dr. Johnson SUBJECTIVE: Patient is a 62-year-old male who is known to [facility] cardiology service (Dr. Murillo) for history of tachybrady syndrome, sinus bradycardia, paroxysmal atrial fibrillation on chronic anticoagulation therapy, and intermittent second-degree AV block Mobitz type I. He was previously evaluated by EP, Dr. Porter for evaluation of tachybrady and possible future pacemaker implantation in August 2017. At that time he was asymptomatic and close surveillance recommended. He was previously taken off all beta vivian and AV nina blocking agents. Other history includes coronary artery disease status post CABG 3, hypertension, dyslipidemia, mild obstructive sleep apnea not currently using CPAP, DM type II. Patient presented to the [facility] last evening with concerns regarding worsening dizziness persistent throughout the day yesterday. He took BP and found his HR in the 40s at home. He also had several bouts on Saturday which resolved spontaneously. No falls. He reports significant gait unsteadiness and dizziness with any type of movement. No sense of palpitations or tachypalpitations. No syncope or near syncope. No chest pain or shortness of breath. No new medication changes. No recent illness. No fever cough or chills. EKG on arrival demonstrated atrial fibrillation with a slow ventricular rate. He was found to be mildly dehydrated and treated with normal saline. Renal function improved. Electrolytes stable. Telemetry demonstrates persistent atrial fibrillation with a slow ventricular rate ranging 30-60 bpm. At time of consult patient notes persistent dizziness while laying in bed, worse with movement and trying to ambulate to the bathroom. No syncope or near syncope. No chest pain or shortness of breath. No orthopnea, PND, lower extremity edema. No fever cough or chills. Patient reports he typically does not have symptoms with atrial fibrillation. Per prior monitoring sessions he was asymptomatic with arrhythmias. Patient attributes his symptoms to low HR. ROS: See above for pertinent positives & negatives. A total of 10 systems reviewed and were otherwise negative. Past Medical History: CAD s/p CABG DM type 2, goal A1c below 7 Dyslipidemia, goal LDL below 100 HTN, goal below 130/80 Mild obstructive sleep apnea 10/18/2015 HST 10/11/15 - KRSITOPHER 7.4, <89% 10 mins ALISSA Prostate CA Past Surgical History: Procedure Laterality Date CABG, ARTERIAL, SINGLE 04/18/2010 CORONARY ARTERY BYPASS GRAFT USING ARTERY 1 GRAFT performed by URBANO WHITE [place] [facility] [place]UNCH [place] OF PROSTATE 10-14-2015 Prostate,Needle/Punch Biopsy REMOVAL OF APPENDIX SHOULDER SURGERY PROCEDURE NEC Family History Problem Relation Age of Onset MD [Other] [OTHER] Father father had an MD in his 60's Social History Substance Use Topics Smoking status: Never Smoker Smokeless tobacco: Never Used Alcohol use No Review of patient's allergies indicates: No Known Allergies Reported Home Medications Medications Dose Route/Sig Max Daily Dose Days Date Category Dose Instructions Cozaar (Losartan Potassium) 50 Mg Tab 50 Mg PO DAILY 11/13/17 Reported Glipizide Er (Glipizide) 10 Mg Tab 10 Mg PO DAILY 90 02/19/17 Reported Tylenol Arthritis Ext Rel (Acetaminophen) 650 Mg Cplt 650 Mg PO Q8H PRN 02/19/17 Reported Glucophage Er (Metformin HCl) 500 Mg Tab 1,000 Mg PO BID 08/21/16 Reported Januvia (Sitagliptin Phosphate) 100 Mg Tab 100 Mg PO QPM 04/03/16 Reported Indocin (Indomethacin) 25 Mg Cap 25-50 Mg PO UD PRN 02/02/16 Reported Norvasc (Amlodipine Besylate) 2.5 Mg Tab 2.5 Mg PO QAM 02/02/16 Reported Flomax (Tamsulosin Hcl) 0.4 Mg Cap 0.4 Mg PO QPM 12/28/15 Reported Lipitor (Atorvastatin Calcium) 40 Mg Tab 40 Mg PO HS 12/28/15 Reported Coumadin (Warfarin Sod) 5 Mg Tab 5 Mg PO 5XWK 11/02/15 Reported EVERY DAY EXCEPT SATURDAY AND FRIDAYS Coumadin (Warfarin Sod) 10 Mg Tab 10 Mg PO 2XWK 11/02/15 Reported CURRENTLY MONDAYS AND FRIDAYS Aspirin Ec (Aspirin) 81 Mg Tab 81 Mg PO QAM 07/12/14 Reported Neurontin (Gabapentin) 100 Mg Cap 100 Mg PO TID 11/03/10 Reported OBJECTIVE/PHYSICAL EXAMINATION: Last 8 Hrs Date Time Temp Pulse Resp B/P (MAP) Pulse Ox O2 Delivery O2 Flow Rate FiO2 11/13/17 08:22 95 Room Air 11/13/17 06:52 36.5 43 18 136/72 (93) 95 Room Air 11/13/17 04:00 36.3 46 18 163/76 98 Room Air 11/13/17 03:16 56 18 157/77 98 Room Air 11/13/17 02:47 39 General: NAD, AAO x3, well nourished. HEENT: Normocephalic. Atraumatic. Conjunctiva pink, no scleral icterus. No carotid bruits, the carotid upstrokes are brisk. No JVD. No HJR Heart: Irregular, bradycardic. S-1 and S-2 no S-3 or S-4 gallop. No murmurs or rubs appreciated. PMI is not displaced. No RV heave. Lungs: Clear bilateral without rales , rhonchi, or wheeze. Abdomen: Normal bowel sounds. Soft. Nontender. No masses or organomegaly. No abdominal bruits. Extremities: No clubbing, cyanosis, or edema. Pulses: radial=2/4, Dorsalis pedis =2/4, posterior tibial=2/4. Neuro: No focal deficits. DATA: EKG on admission 11/12: Atrial fibrillation with slow ventricular response at 53 bpm Incomplete right bundle branch block Septal infarct , age undetermined Abnormal ECG When compared with ECG of 30-AUG-2016 13:16, Atrial fibrillation has replaced Sinus rhythm Septal infarct is now Present Nonspecific T wave abnormality, improved in Lateral leads EKG, repeat 11/13: Atrial fibrillation with slow ventricular rate at 44 bpm incomplete RBBB No significant change from prior Telemetry reviewed - atrial fib, with slow ventricular rates ranging 30-60 bpm. Occ PVC. Chest xray reviewed - IMPRESSION: 1. Minimal left basilar opacities likely atelectasis. 2. Mild cardiomegaly. Labs: Last 24 Hours Test 11/12/17 23:28 11/13/17 06:11 11/13/17 07:26 White Blood Count 7.65 K/uL 6.61 K/uL Red Blood Count 4.58 M/uL 4.39 M/uL Hemoglobin 13.7 g/dL 12.9 g/dL Hematocrit 39.6 % 37.9 % Mean Corpuscular Volume 86.5 fL 86.3 fL Mean Corpuscular Hemoglobin 29.9 pg 29.4 pg Mean Corpuscular Hemoglobin Concent 34.6 g/dl 34.0 g/dl Platelet Count 181 K/uL 168 K/uL Mean Platelet Volume 10.3 fL 9.9 fL Neutrophils (%) (Auto) 68.4 % Lymphocytes (%) (Auto) 21.7 % Monocytes (%) (Auto) 6.1 % Eosinophils (%) (Auto) 2.9 % Basophils (%) (Auto) 0.5 % Neutrophils # (Auto) 5.23 K/uL Lymphocytes # (Auto) 1.66 K/uL Monocytes # (Auto) 0.47 K/uL Eosinophils # (Auto) 0.22 K/uL Basophils # (Auto) 0.04 K/uL RDW Standard Deviation 46.0 fL 45.8 fL RDW Coefficient of Variation 14.6 % 14.6 % Immature Granulocyte % (Auto) 0.4 % Immature Granulocyte # (Auto) 0.03 K/uL Prothrombin Time 19.4 SECONDS 20.5 SECONDS Prothromb Time International Ratio 1.9 2.0 Activated Partial Thromboplast Time 32.0 SECONDS Partial Thromboplastin Ratio 1.2 Sodium Level 135 mmol/L 136 mmol/L Potassium Level 4.2 mmol/L 4.2 mmol/L Chloride Level 101 mmol/L 104 mmol/L Carbon Dioxide Level 30 mmol/L 26 mmol/L Anion Gap 4.0 mmol/L 6.0 mmol/L Blood Urea Nitrogen 15 mg/dl 11 mg/dl Creatinine 1.43 mg/dl 0.95 mg/dl Est Creatinine Clear Calc Drug Dose 71.5 ml/min 107.6 ml/min Estimated GFR () 59.6 97.7 Estimated GFR (Non- 51.4 84.3 BUN/Creatinine Ratio 10.4 11.3 Random Glucose 187 mg/dl 164 mg/dl Calcium Level 9.0 mg/dl 8.6 mg/dl Magnesium Level 2.1 mg/dl Total Creatine Kinase 196 U/L Creatine Kinase MB 3.7 ng/ml Creatine Kinase MB Ratio 1.9 Troponin I < 0.015 ng/ml Thyroid Stimulating Hormone (TSH) 3.080 uIu/ml Bedside Glucose 163 mg/dl Prior DATA: 24 Hour Holter report 01/11/2016: 1. Duration - 24 hours 2. Quality - fair 3. Dominant rhythm - Sinus rhythm with first-degree AV block. Frequent premature atrial complexes, salvos of paroxysmal atrial tachycardia, as well as short salvos of paroxysmal atrial fibrillation recorded. Intermittent second -degree AV block, Mobitz type 1 noted during presumed hours of sleep. The longest R-R interval was 2.5 seconds. The maximum heart rate during periods of AFib was 140 beats per minute. 4. PACs - Frequent isolated complexes, couplets, short salvos of paroxysmal atrial tachycardia, and paroxysmal atrial fibrillation. 5. PVCs - Moderate number of isolated complexes 6. Symptoms - no symptoms reported, no diary submitted. Exercise Stress Echo report 11/2015: The stress echo is negative for inducible ischemia. The examination is adequate to evaluate the referral indication. Exercise capacity is average . No symptoms were noted. The stress EKG response showed no evidence of ischemia. Frequent PVCs were noted with stress. Ventricular bigeminy was noted with stress. At rest, the inferior and posterior mari are hypokinetic at the base and mid level All other wall segments contract normally With stress, all wall segments improved with the inferior and posterior mari to a slightly lesser degree. No new wall motion abnormalities are induced The left ventricular ejection fraction increases normally with stress. The left ventricular cavity size is normal. The LV wall thickness is mildly increased (concentric). The qualitative LV ejection fraction is 50-54% (normal). The aortic root and proximal ascending aorta are borderline enlarged. No significant valvular disease is present. ASSESSMENT: 62 year old male 1. Dizziness, with associated slow ventricular rates, history of Tachybrady. Off all beta vivian/AV nina agents. 2. Persistent atrial fibrillation with slow ventricular rates on EKG since admission. History of PAF, on chronic Coumadin. Rates previously 100-140. 3. History of intermittent 1st degree, 2nd degree AV block Type I 4. CAD s/p CABG. No anginal symptoms. 5. Hypertension PLAN: Findings discussed with the patient. Since admission he has had persistent bradyarrhythmias likely contributing to his symptoms of dizziness. He has a history of tachybrady syndrome as demonstrated by prior outpatient telemetry, but was asymptomatic until recently. He has not been taking AV nina/beta blockers. Electrolytes stable. At this time, I believe he would benefit from implantation of PPM. Patient agreeable. Coumadin held last night. INR 2.0. Once pacemaker implanted can discuss further treatment for atrial fibrillation if persistent. Case discussed with Dr. Porter. Patient to remain NPO this AM. Case to be done today. Case to be discussed with Dr. Macias as well. (Purnima Daigle PA-C) CARDIOLOGY ATTENDING ADDENDUM: The patient was seen and personally examined. Agree with Purnima Daigle PA-C's findings and plans as documented above. I agree with proceeding to a permanent pacemaker that can be placed today. (Kennedy Macias, DO)
--- NOTE | 2017-11-13 11:29 | History & Physical Bridge Note ---
H&P Re-Evaluation Bridge Note: I have examined the patient, reviewed the History & Physical and in the interval since the performance of the History & Physical I have noted the following changes of clinical significance: Pt with SSS and pAF with SVR. For dual chamber pacemaker today.
--- NOTE | 2017-11-13 11:30 | Family Medicine Progress Note ---
Progress Note Date of Service Nov 13, 2017. Subjective Pt evaluation today including: conversation w/ patient, physical exam Pain: Denies pain PO Intake: NPO for procedure Voiding: no voiding problems Patient resting comfortably this AM. Continues to report dizziness, worse with activity but still has some at rest. Denies chest pain or presyncopal symptoms. Constitutional: No fever, No chills Respiratory: No cough Cardiovascular: + problem reported (Dizziness, especially with exertion. Lightheaded on standing.), No chest pain, No edema, No palpitations Musculoskeletal: + joint pain Neurologic: + numbness/tingling (in feet; known peripheral neuropathy) All Other Systems: Reviewed and Negative Medications Current Inpatient Medications Medications (Trade) Dose Ordered Sig/Leilani Route Start Time Stop Time Status Last Admin Dose Admin Acetaminophen (Tylenol Tab) 650 mg Q4H PRN PO 11/13/17 02:15 12/13/17 02:14 Al Hydrox/Mg Hydrox/Simethicone (Maalox Max Susp) 15 ml Q4H PRN PO 11/13/17 02:15 12/13/17 02:14 Magnesium Hydroxide (Milk Of Magnesia Susp) 30 ml Q12H PRN PO 11/13/17 02:15 12/13/17 02:14 Ondansetron HCl (Zofran Inj) 4 mg Q6H PRN IV 11/13/17 02:15 12/13/17 02:14 Polyethylene (Miralax Powder Packet) 17 gm DAILY PRN PO 11/13/17 02:15 12/13/17 02:14 Atropine Sulfate (Atropine Sulfate 0.1mg/ml Inj) 0.5 mg PRN PRN IV 11/13/17 02:15 12/13/17 02:14 Insulin Aspart (novoLOG ASPART) SLIDING SCALE G... Q6 SC 11/13/17 06:00 12/13/17 05:59 Glucose (Glucose 40% Gel) 15-30 GRAMS 15 GRAMS... UD PRN PO 11/13/17 03:45 12/13/17 03:44 Glucose (Glucose Chew Tab) 4-8 Tablets 4 Tabl... UD PRN PO 11/13/17 03:45 12/13/17 03:44 Dextrose (Dextrose 50% 50ML Syringe) 25-50ML OF 50% DW IV FOR... UD PRN IV 11/13/17 03:45 12/13/17 03:44 Glucagon (Glucagon Inj) 1 mg UD PRN SQ 11/13/17 03:45 12/13/17 03:44 Sodium Chloride 1,000 ml @ 125 mls/hr Q8H IV 11/13/17 07:45 12/13/17 07:44 11/13/17 09:07 125 MLS/HR Objective Vital Signs Date Time Temp Pulse Resp B/P (MAP) Pulse Ox O2 Delivery O2 Flow Rate FiO2 11/13/17 08:22 95 Room Air 11/13/17 06:52 36.5 43 18 136/72 (93) 95 Room Air 11/13/17 04:00 36.3 46 18 163/76 98 Room Air 11/13/17 03:16 56 18 157/77 98 Room Air 11/13/17 02:47 39 11/13/17 02:09 50 17 155/83 95 Room Air 11/13/17 00:30 151/69 95 11/13/17 00:29 48 19 11/13/17 00:19 136/63 11/13/17 00:05 45 11/13/17 00:05 49 11/13/17 00:00 136/63 11/12/17 23:59 48 17 11/12/17 23:30 136/71 11/12/17 23:29 52 17 11/12/17 23:19 60 11/12/17 23:09 171/91 11/12/17 22:40 36.6 56 18 186/86 94 Room Air Physical Exam General Appearance: WD/WN, no apparent distress Eyes: PERRL, EOMI ENT: hearing grossly normal Neck: no JVD, no carotid bruits, trachea midline Respiratory/Chest: lungs clear, normal breath sounds, no accessory muscle use Cardiovascular: no murmur, + bradycardia, + irregularly irregular, + pertinent finding (Diminished peripheral pulses LLE) Abdomen: normal bowel sounds, non tender, soft Extremities: non-tender, no calf tenderness, + pedal edema (Trace bilaterally) , + pertinent finding (arthritic changes to toes L>R) 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, no motor/sensory deficits, alert, normal mood/affect, oriented x 3 Skin: normal color Laboratory Results Last Resulted 11/13/17 07:26 Last Resulted 11/13/17 07:26 Past 24 Hours Test 11/12/17 23:28 11/13/17 07:26 Range/Units Creatine Kinase MB 3.7 H 0.5-3.6 ng/ml Creatine Kinase MB Ratio 1.9 0-3.0 Prothromb Time International Ratio 1.9 H 2.0 H 0.9-1.1 Prothrombin Time 19.4 H 20.5 H 9.0-12.0 SECONDS Total Creatine Kinase 196 39-308 U/L Troponin I < 0.015 0-0.045 ng/ml Assessment and Plan 62 year old male PMH of afib, DM, HTN, Prostate cancer, ALISSA, Peripheral neuropathy, CAD/NH, and gout presented with dizziness and was found to be in afib with slow ventricular rate. Afib with slow ventricular rate/variable block, symptomatic with dizziness - Known 2nd degree block (Mobitz I) in 2017 - atropine 0.5mg IV prn for symptomatic bradycardia, repeat to max of 3mg - no significant electrolyte abnormalities and TSH wnl - Cardiology consult: for PPM placement today, and discussion of further treatment of afib if it persists post procedure. - home meds held today, resume tomorrow am Hx of NH/CAD - hx of triple bypass s/p NH in 2009 - hold aspirin and lipitor - negative troponin - denies chest pain DM - hold home meds - ISS Peripheral neuropathy - Left worse than right leg - on gabapentin HTN - well controlled currently - hold amlodipine and losartan Afib - INR of 1.9 - hold warfarin - trend INR H/O Prostate Cancer - continue tamsulosin Code: Full DVTP: Warfarin w/ INR of 1.9 Dispo: Tele Resident Tracking Resident Involvement: Resident Care Provided Care Provided: Adult Hospital Medicine Reviewed: Pt Seen/Exam by Me History still feeling dizzi with getting up. no chest pain, shortness of breath Constitutional: denies: fever Respiratory: negative: short of breath Cardiovascular: denies chest pain General Appearance: no apparent distress Respiratory: lungs clear, no respiratory distress Cardiovascular: irregularly irregular Neurologic/Psychiatric: alert, oriented x 3 Skin Characteristics: warm/dry Assessment/Plan Resident Physician Supervision Note: I independently interviewed and examined the patient and verified the kiser history and physical, reviewed labs and image studies, discussed the case with the resident Dr. Stevenson and agree with the findings and care plan.
--- NOTE | 2017-11-13 11:30 | Pre Sedation Assessment ---
Pre Sedation Assessment General Date of Sedation: Nov 13, 2017. Vital Signs Past 12 Hours Date Time Temp Pulse Resp B/P (MAP) Pulse Ox O2 Delivery O2 Flow Rate FiO2 11/13/17 08:22 95 Room Air 11/13/17 06:52 36.5 43 18 136/72 (93) 95 Room Air 11/13/17 04:00 36.3 46 18 163/76 98 Room Air 11/13/17 03:16 56 18 157/77 98 Room Air 11/13/17 02:47 39 11/13/17 02:09 50 17 155/83 95 Room Air 11/13/17 00:30 151/69 95 11/13/17 00:29 48 19 11/13/17 00:19 136/63 11/13/17 00:05 45 11/13/17 00:05 49 11/13/17 00:00 136/63 11/12/17 23:59 48 17 11/12/17 23:30 136/71 Review Cardiovascular: + bradycardia, + irregularly irregular Lungs: lungs clear, normal breath sounds Pre-Sedation Airway Assessment Smoking Status: Never Smoker Hx of difficult intubation: No Short Thick Neck: No Thyro-mental Distance: < or =3 Finger Breadths Mallampati Classification: Class II ASA Classification: Class II NPO Status Date of Last Intake of Fluids: Nov 12, 2017 Time of Last Intake of Fluids: 2299 Date of Last Intake of Solids: Nov 12, 2017 Time of Last Intake of Solids: 2299 Procedure Planning Contraindications for Sedation: None Current Medications Reviewed: Yes Notes The planned sedation has been discussed with the patient. Informed Consent was obtained. I have identified the patient, determined the appropriateness of sedation and have assessed the patient immediately prior to the procedure. All medicine(s) and interventions are by my order.
[2017-11-13] MEDS ORDERED: LIDOCAINE HCL 1% 20 ML VIAL ONE (11:59)
[2017-11-13] MEDS ORDERED: BUPIVACAINE 0.5 % 5 MG/1 ML MPF 30ML VIAL ONE (11:59)
[2017-11-13] MEDS ORDERED: BACITRACIN 50000 UNIT VIAL ONE (11:59)
[2017-11-13] MEDS ORDERED: CEFAZOLIN SOD 1 GM VIAL ONE (12:09)
[2017-11-13] MEDS ORDERED: MIDAZOLAM HCL 5 MG/ML 1 ML VIAL ONE ×5 (12:12→12:34)
[2017-11-13] MEDS ORDERED: FENTANYL CITRATE INJ 50 MCG/1 ML 2 ML VIAL ONE ×2 (12:12→12:32)
--- NOTE | 2017-11-13 13:18 | [facility] Post Operative Brief Note ---
Immediate Operative Summary Operative Date Nov 13, 2017. 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
[2017-11-13] MEDS: GABAPENTIN 100 MG CAP PO SCH ×2 (15:46→20:25)
[2017-11-13] MEDS: WARFARIN SOD 5 MG TAB PO SCH (15:46)
[2017-11-13] MEDS: SITAGLIPTIN 100 MG TAB PO SCH (20:25)
[2017-11-13] MEDS: ATORVASTATIN 40 MG TAB PO SCH (20:25)
[2017-11-13] MEDS: TAMSULOSIN HCL 0.4 MG CAP PO SCH (20:26)
[2017-11-13] MEDS: METFORMIN HCL 500 MG TABCR PO SCH (20:26)
[2017-11-13] MEDS: ACETAMINOPHEN/CODEINE 300/30MG TAB PO PRN ×2 (20:26→23:54)
--- NOTE | 2017-11-13 20:59 | OPERATIVE REPORT ---
DATE OF OPERATION: 11/13/2017 PREOPERATIVE DIAGNOSIS: Sick sinus syndrome. POSTOPERATIVE DIAGNOSIS: Sick sinus syndrome. PROCEDURE: Dual chamber rate responsive permanent pacemaker under fluoroscopic guidance along with peripheral venogram. SURGEON: Aaliyah Porter DO. WALL MAN: None. ANESTHESIA: Monitored conscious sedation administered under my supervision by Leonard Gaines. Start time 1218, end time 1310. Total of 5 mg of Versed and 125 mcg fentanyl. IV FLUIDS: 100 mL. ANTIBIOTICS: 3 grams of Ancef. ESTIMATED BLOOD LOSS: Less than 20 mL. URINE OUTPUT: Not applicable. SPECIMENS: None. FINDINGS: See below. DRAINS: None. INDICATIONS: [id number]-[id number]-old gentleman who has a past medical history for early evidence of tachybrady syndrome, when I last saw him in the office, paroxysmal atrial fibrillation on Coumadin, usually rates are in the 100-140s, intermittent first degree AV block as well as second degree AV block type 1, coronary artery disease, history of a CABG, hypertension, mild obstructive sleep apnea, diabetes and history of prostate cancer. He was admitted to [facility] secondary to 2 days of dizziness, found to be in atrial fibrillation with a slow ventricular response of any AV nina blockers with ventricular rates down in the 30s. For this reason, he was recommended a dual chamber pacemaker. CONSENT: Consent was obtained prior to the patient going into the electrophysiology lab. Patient informed the risks, benefits, alternatives to the procedure. Risks include but not limited to sudden cardiac , cardiac arrhythmias, cerebrovascular accident, myocardial infarction, injury to the blood vessels, chamber of the heart, lung, bleeding and infection. Patient understood these risks and agreed to the procedure as planned. Informed consent was obtained. DESCRIPTION OF THE PROCEDURE: Patient was brought into the electrophysiology lab in a fasting state. He was connected to continuous cardiac monitoring. A timeout was performed to ensure patient identity, procedure correctly. Patient was prepped and draped over the left infraclavicular space in normal surgical standard fashion. Moderate conscious sedation was given throughout the procedure for patient's comfort level. [place] precautions were maintained throughout the procedure. 20 mL of 1% lidocaine, bupivacaine mixture were given in the left deltopectoral groove. Incision was made in left deltopectoral groove. Blunt dissection was performed down to identify the cephalic vein however I could not identify it although there was one there. We then set up to do a peripheral venogram using 10 mL of IV contrast diluted in 10 mL of saline followed by 20 mL flush. The venous access was obtained through the axillary venous stick without any complications. The guidewire was inserted without any resistance. An 8-Swazi sheath was inserted over the guidewire without any resistance. Dilator was removed and a second guidewire was inserted through the 8-Swazi sheath to allow for retained venous access. Sheath was removed, flushed, dilator reinserted over it and then it was reinserted over one of the sheaths, dilator and wire were removed and the right ventricular pacing lead was then advanced into right ventricle and positioned into the ventricular apex under fluoroscopic guidance. There was adequate pacing and sensing thresholds and no diaphragmatic stimulation with high output pacing. The 8-Swazi sheath was peeled away and lead was fixated to the pectoralis muscle using 0 silk suture. A second 8-Swazi sheath was inserted over the retained guidewire without any resistance. The guidewire and dilator removed. The right atrial lead was then advanced into the right atrium and positioned into right atrial appendage under fluoroscopic guidance. There was adequate sensing of the atrial fib waves, no threshold testing could be done as patient was in the AFib, but there was stable impedance. The 8-Swazi sheath was peeled away and lead was fixated to pectoralis muscle using 0 silk suture. An additional 10 mL of 1% lidocaine and bupivacaine mixture were given in the pectoralis fascia, then using blunt dissection over the pectoralis muscle within the fascia, a pacemaker pocket was created. The pocket was flushed with copious amounts of bacitracin saline wash and inspected for hemostasis. The pulse generator was then attached to the leads making sure that the pins were in appropriate position, passed the set screws and set screws were all tightened. Pulse generator was then placed in the pocket, making sure that the leads were lying flat beneath the device. A stay stitch using 0 silk suture was used to secure the device to the pectoralis muscle. Joseph stat was placed in the pocket since the patient is on Coumadin to prevent any further oozing. The incision was then closed in 3-layer fashion with 2-0 Vicryl interrupted suture, followed by 3-0 Vicryl interrupted suture, followed by 4-0 Monocryl running stitch and Dermabond was applied followed then by a pressure dressing. EQUIPMENT: 1. Pulse generator is a Medtronic [place] XT CASIMIRO Munson [id number], serial #[id number]. 2. Right atrial lead, Medtronic 5076-52 cm, serial #[id number]. 3. Right ventricular lead Medtronic 5076-58 cm, serial ##[id number]. INTRAOPERATIVE TESTIN. Right atrial lead: Fib waves 4.9 millivolts, impedance 621 ohms, threshold is not performed as patient was in afib. 2. Right ventricular lead: R-waves 15.1 millivolts, impedance 1063 ohms, threshold 0.4 volts at 0.3 milliamps. FINAL MEASUREMENTS THROUGH THE DEVICE: Fib waves 2 millivolts, impedance 494 ohms. Again, no threshold testing as patient was in afib. Right ventricular lead: R-wave 11.3 millivolts, impedance 817 ohms, threshold 0.5 volts at 0.4 milliseconds. FINAL PARAMETERS: MVP-R 60/130, right atrial amplitude 3.5 volts, pulse was 0.4 milliseconds, sensitivity 0.3 millivolts. Right ventricular amplitude 3.5 volts, pulse was 0.4 milliseconds, sensitivity 1.2 millivolts. IMPRESSION: Successful implantation of dual chamber rate responsive permanent pacemaker secondary to tachybrady syndrome/sick sinus syndrome. PLAN: Monitor patient overnight, 12-lead ECG, chest x-ray. He is not allowed to lift the left elbow or left shoulder for 1 month. He cannot lift more than 10 pounds of the left arm for 2 weeks. He can shower tomorrow, let water run over the incision, do not scrub it. He will follow up in our [facility] office in 7-10 days for device and wound check. We will start him on metoprolol 25 mg daily, continue his Coumadin and discuss with his primary supervisor [employer] about possibility if he does not convert out of the atrial fibrillation, a cardioversion, follow then possibly by amiodarone or some antiarrhythmics. I attest to the content of the Intraoperative Record and any orders documented therein. Any exception s are noted below.
[2017-11-13] MEDS ORDERED: NURSING VERBAL MED ORDER ONE (23:30)
[2017-11-14] VITALS (10 sets, daily range): BP systolic 135–167; BP diastolic 73–92; PULSE 60–74; TEMP 36.4–37; O2SAT 92–94
--- NOTE | 2017-11-14 06:58 | Clinical Documentation Query ---
CLINICAL DOCUMENTATION QUERY 62 yo male admitted with sick sinus syndrome and s/p pacemaker implant. Admitting creatinine was 1.43 and trended down to 0.95. GFR 51 trending up to 84. Baseline creatinine October 2017 was 0.86. In your clinical opinion is this patient being managed for: ( x) Acute kidney failure, resolved ( ) Not Agree ( ) Other explanation of clinical findings (Please Explain) ( ) Unable to determine (Please Define) ( ) Need to Discuss The medical record reflects the following clinical findings, treatment, and risk factors. Clinical Indicators: As above Treatment: Serial PRPs, telemetry Risk Factors: DM, Afib Please clarify and document your clinical opinion in the progress notes and discharge summary. Terms such as "probable", "suspected", "likely", "questionable", "possible", or "still to be ruled out" are acceptable. IF IN AGREEMENT, YOU MUST DOCUMENT ABOVE DIAGNOSTIC STATEMENT IN DAILY PROGRESS NOTES AND DISCHARGE SUMMARY. This document is not part of the patient's record. Thank You, Kendal Smith RN [phone]
--- NOTE | 2017-11-14 07:21 | DIAGNOSTIC IMAGING REPORT ---
TWO VIEW CHEST CLINICAL HISTORY: Status post pacemaker implantation. FINDINGS: PA and lateral chest radiographs are compared to study dated 11/12/2017. Correlation is made with chest CT dated 04/14/2010. A 2-lead cardiac pacemaker has been placed. Leads project over the right atrial appendage and right ventricle. The patient is status post midline sternotomy. Epicardial pacing leads are noted. The heart is enlarged and there is atherosclerotic calcification of the thoracic aorta. The pulmonary vasculature is noncongested. Chronic interstitial thickening is similar to previous. There is left basilar scarring/atelectasis. Tiny calcified granulomas are observed. No airspace consolidation or pleural effusion is identified. There is no pneumothorax. The skeletal structures are osteopenic. A right shoulder arthroplasty is in place. Degenerative change and DISH are noted in the thoracic spine. IMPRESSION: 1. A 2-lead cardiac pacemaker has been implanted as above. No pneumothorax is seen post procedure. 2. Cardiomegaly without radiographic evidence of congestive failure. 3. No airspace consolidation or pleural effusion is identified. Electronically signed by: Tommy Hoover M.D. 11/14/2017 7:20 AM Dictated Date/Time: 11/14/2017 7:18 AM
[2017-11-14 07:25] LABS: BASO % 0.3 %; BASO ABS # 0.02 K/uL (0-0.2); EOS % 3.2 %; EOS ABS # 0.22 K/uL (0-0.5); HEMATOCRIT 38.3 % (42-52); IG# 0.02 K/uL (0.00-0.02); LYMPH % 12.7 %; LYMPH ABS # 0.88 K/uL (1.2-3.4); MEAN CELL VOLUME 86.8 fL (80-100); MEAN CORPUSCULAR HEMOGLOBIN 29.5 pg (25-34); MEAN CORPUSCULAR HGB CONC 33.9 g/dl (32-36); MEAN PLATELET VOLUME 10.3 fL (7.4-10.4); MONO ABS # 0.42 K/uL (0.11-0.59); NEUT % 77.5 %; NEUT ABS # 5.39 K/uL (1.4-6.5); PLATELET COUNT 165 K/uL (130-400); RED CELL DISTRIBUTION WIDTH CV 14.9 % (11.5-14.5); RED CELL DISTRIBUTION WIDTH SD 47.1 fL (36.4-46.3); WHITE BLOOD COUNT 6.95 K/uL (4.8-10.8)
[2017-11-14 07:33] LABS: INR 1.9 (0.9-1.1)
[2017-11-14 07:52] LABS: CALCIUM 8.6 mg/dl (8.5-10.1); CREATININE 0.93 mg/dl (0.60-1.40); POTASSIUM 4.4 mmol/L (3.5-5.1)
[2017-11-14] MEDS: AMLODIPINE BESYLATE 5 MG TAB PO SCH (08:14)
[2017-11-14] MEDS: GABAPENTIN 100 MG CAP PO SCH ×3 (08:14→20:24)
[2017-11-14] MEDS: METOPROLOL SUCC 25MG EXT REL TAB PO SCH (08:15)
[2017-11-14] MEDS: ASPIRIN 81 MG ECTAB PO SCH (08:15)
[2017-11-14] MEDS: LOSARTAN POTASSIUM 50 MG TAB PO SCH (08:15)
[2017-11-14] MEDS: METFORMIN HCL 500 MG TABCR PO SCH ×2 (08:15→20:24)
[2017-11-14] MEDS: INSULIN ASPART 100 UNITS/ML 3 ML PEN SC SCH ×4 (08:18→20:26)
--- NOTE | 2017-11-14 09:32 | Cardiology Follow-Up ---
Subjective General Date of Service: Nov 14, 2017. Chief Complaint: dizziness; SSS; PAF Pt evaluation today including: conversation w/ patient, physical exam, chart review, lab review, review of studies, conversation w/ retirement sales consultant, review of inpatient medication list History of Present Illness Patient feeling ok. Had bout of dizziness this AM, described as room spinning. Seems better but still "off balance" when getting out of bed. Not as severe as admission. Mild incisional discomfort. No significant erythema. No drainage. No chest pain or SOB. No orthopnea, PND or edema. No sense of palpitations or tachypalpitations. Allergies Coded Allergies: No Known Allergies (Verified , 11/13/17) Social History Smoking Status: Never Smoker Hx Tobacco Use In Past Year?: No Hx Alcohol Use - Type And Amou: No Hx Substance Use - Type And Am: No Problem List Medical Problems: (1) Atrial fibrillation Status: Chronic (2) Cellulitis of left lower extremity Status: Acute (3) Chronic right shoulder pain Status: Acute (4) Chronic shoulder pain Status: Acute (5) Hemarthrosis, right shoulder Status: Acute (6) Hyperglycemia Status: Acute (7) Renal insufficiency Status: Acute (8) Symptomatic bradycardia Status: Acute Review of Systems Respiratory: No cough, No wheezing, No shortness of breath, No dyspnea on exertion, No dyspnea at rest, No hemoptysis Cardiac: No chest pain, No orthopnea, No PND, No edema, No palpitations Physical Exam Vital Signs Last Vital Signs Documentation Date Time Temp Pulse Resp B/P (MAP) Pulse Ox O2 Delivery O2 Flow Rate FiO2 11/14/17 07:24 37.0 66 16 145/73 (97) 92 Room Air Physical Exam Constitutional: General Apperance: overweight Level of Distress: NAD Psychiatric: Mental Status: active & alert Orientation: to time, to place, to person Eyes: Pupils: PERRLA Neck: supple Lungs: Respiratory effort: no dyspnea Auscultation: no wheezing, no rales/crackles Cardiovascular: Heart Auscultation: RRR, normal S1, normal S2, no murmurs, pertinent finding (left chest wall - incision without drainage) Abdomen: Bowel Sounds: normal Inspection & Palpation: soft, non-distended Extremities: no edema Assessment and Plan Assessment and Plan 1. SSS s/p dual chamber pacemaker implant on 11/13/17 -tolerated procedure without incident -appropriate device function per interrogation this AM 2. PAF, converted to NSR yesterday post pacemaker -metoprolol succinate 25 mg restarted -continue Coumadin -monitor PT/INR 3. Dizziness this AM, questionable vertigo, improved from admission but remains "off balance' -discussed with Dr. Porter -recommend carotid duplex and orthostatic vital signs -increase fluids -continue BP meds, BP improving. 4. Hypertension - elevated on admission and this AM, Improved with resumption of home meds. Monitor 5. CAD - no anginal symptoms. Continue home meds. Case discussed with Dr. Porter. Will monitor. CARDIOLOGY ATTENDING ADDENDUM: The patient was seen and personally examined. Agree with Purnima Daigle PA-C's findings and plans as documented above. The patient had an uneventful pacemaker insertion however he is experiencing some dizziness today. He is to have a carotid ultrasound and has been started on meclizine. Currently he remains stable. Laboratory Results Last 24 Hours Test 11/13/17 14:38 11/13/17 16:28 11/13/17 20:10 11/14/17 06:46 Bedside Glucose 166 mg/dl 252 mg/dl 130 mg/dl White Blood Count 6.95 K/uL Red Blood Count 4.41 M/uL Hemoglobin 13.0 g/dL Hematocrit 38.3 % Mean Corpuscular Volume 86.8 fL Mean Corpuscular Hemoglobin 29.5 pg Mean Corpuscular Hemoglobin Concent 33.9 g/dl Platelet Count 165 K/uL Mean Platelet Volume 10.3 fL Neutrophils (%) (Auto) 77.5 % Lymphocytes (%) (Auto) 12.7 % Monocytes (%) (Auto) 6.0 % Eosinophils (%) (Auto) 3.2 % Basophils (%) (Auto) 0.3 % Neutrophils # (Auto) 5.39 K/uL Lymphocytes # (Auto) 0.88 K/uL Monocytes # (Auto) 0.42 K/uL Eosinophils # (Auto) 0.22 K/uL Basophils # (Auto) 0.02 K/uL RDW Standard Deviation 47.1 fL RDW Coefficient of Variation 14.9 % Immature Granulocyte % (Auto) 0.3 % Immature Granulocyte # (Auto) 0.02 K/uL Prothrombin Time 19.4 SECONDS Prothromb Time International Ratio 1.9 Sodium Level 135 mmol/L Potassium Level 4.4 mmol/L Chloride Level 101 mmol/L Carbon Dioxide Level 29 mmol/L Anion Gap 5.0 mmol/L Blood Urea Nitrogen 9 mg/dl Creatinine 0.93 mg/dl Est Creatinine Clear Calc Drug Dose 109.2 ml/min Estimated GFR () 100.2 Estimated GFR (Non- 86.5 BUN/Creatinine Ratio 9.6 Random Glucose 178 mg/dl Calcium Level 8.6 mg/dl Test 11/14/17 07:17 Bedside Glucose 205 mg/dl
[2017-11-14] MEDS ORDERED: MECLIZINE HCL 12.5 MG TAB PO STA (11:08)
--- NOTE | 2017-11-14 14:51 | DIAGNOSTIC IMAGING REPORT ---
CAROTID DOPPLER NECK ART CLINICAL HISTORY: 62 years-old Male presenting with dizziness. TECHNIQUE: Real-time grayscale and color and spectral Doppler ultrasound imaging of the bilateral carotid arteries was performed. NASCET criteria was used in evaluating this study. COMPARISON: None. FINDINGS: Right: Common carotid: Atherosclerosis. Peak systolic velocity 70 cm/s. Internal carotid artery: Atherosclerosis of the proximal ICA. Peak systolic velocity 108 cm/s. Systolic ratio: 1.5. External carotid artery: Patent. Peak systolic velocity 104 cm/s. Left: Common carotid: Atherosclerosis. Peak systolic velocity 98 cm/s. Internal carotid artery: Atherosclerosis of the proximal ICA. Peak systolic velocity 104 cm/s. Systolic ratio: 1.1. External carotid artery: Patent. Peak systolic velocity 81 cm/s. Bilateral antegrade flow within the vertebral arteries. Reference ranges: Stenosis measurements are compared to reference velocity parameters. Primary parameters: ICA peak systolic velocity (PSV) < 125 cm/s normal or indicating < 50% stenosis; ICA PSV 125-230 cm/s equivalent to 50-69% stenosis; ICA PSV > 230 cm/s equivalent to greater than or equal to 70% stenosis. Additional parameters: ICA PSV to common carotid artery PSV ratio < 2 normal or < 50% stenosis; 2-4 equates to 50-69% stenosis, > 4 equates to greater than or equal to 70% stenosis. Normal ICA end-diastolic velocity less than 40. Blood pressure Not performed. IMPRESSION: Atherosclerosis without hemodynamically significant stenosis seen within the carotid arteries. Electronically signed by: Moshe Yeung M.D. 11/14/2017 2:50 PM Dictated Date/Time: 11/14/2017 2:47 PM
[2017-11-14] MEDS: WARFARIN SOD 5 MG TAB PO SCH (17:29)
--- NOTE | 2017-11-14 19:57 | Family Medicine Progress Note ---
Progress Note Date of Service Nov 14, 2017. Subjective Pt evaluation today including: conversation w/ patient, physical exam, chart review, lab review Pain: Some discomfort of incision site but relieved with ice pack PO Intake: Tolerating well Voiding: no voiding problems Patient reports he is feeling pretty well aside from continued dizziness. States this is occurring at rest and with movement, and reports it does not change with positioning of head. Constitutional: No fever, No chills Eyes: No diplopia ENT: + problem reported (vertigo), No hearing loss Respiratory: No cough Cardiovascular: + problem reported (Incisional discomfort), No chest pain Abdomen: No pain, No nausea, No vomiting All Other Systems: Reviewed and Negative Medications Current Inpatient Medications Medications (Trade) Dose Ordered Sig/Leilani Route Start Time Stop Time Status Last Admin Dose Admin Acetaminophen (Tylenol Tab) 650 mg Q4H PRN PO 11/13/17 02:15 12/13/17 02:14 Al Hydrox/Mg Hydrox/Simethicone (Maalox Max Susp) 15 ml Q4H PRN PO 11/13/17 02:15 12/13/17 02:14 Magnesium Hydroxide (Milk Of Magnesia Susp) 30 ml Q12H PRN PO 11/13/17 02:15 12/13/17 02:14 Ondansetron HCl (Zofran Inj) 4 mg Q6H PRN IV 11/13/17 02:15 12/13/17 02:14 Polyethylene (Miralax Powder Packet) 17 gm DAILY PRN PO 11/13/17 02:15 12/13/17 02:14 Atropine Sulfate (Atropine Sulfate 0.1mg/ml Inj) 0.5 mg PRN PRN IV 11/13/17 02:15 12/13/17 02:14 Glucose (Glucose 40% Gel) 15-30 GRAMS 15 GRAMS... UD PRN PO 11/13/17 03:45 12/13/17 03:44 Glucose (Glucose Chew Tab) 4-8 Tablets 4 Tabl... UD PRN PO 11/13/17 03:45 12/13/17 03:44 Dextrose (Dextrose 50% 50ML Syringe) 25-50ML OF 50% DW IV FOR... UD PRN IV 11/13/17 03:45 12/13/17 03:44 Glucagon (Glucagon Inj) 1 mg UD PRN SQ 11/13/17 03:45 12/13/17 03:44 Acetaminophen/ Codeine Phosphate (Tylenol w/ Codeine #3 Tab) 1 tab for pain scale 4-6 2 t... Q4H PRN PO 11/13/17 13:15 12/13/17 13:14 11/13/17 23:54 1 TAB Acetaminophen (Tylenol Tab) 650 mg Q4H PRN PO 11/13/17 13:15 12/13/17 13:14 Amlodipine Besylate (Norvasc Tab) 2.5 mg QAM PO 11/14/17 09:00 12/14/17 08:59 11/14/17 08:14 2.5 MG Aspirin (Ecotrin Tab) 81 mg QAM PO 11/14/17 09:00 12/14/17 08:59 11/14/17 08:15 81 MG Atorvastatin Calcium (Lipitor Tab) 40 mg HS PO 11/13/17 21:00 12/13/17 20:59 11/13/17 20:25 40 MG Gabapentin (Neurontin Cap) 100 mg TID PO 11/13/17 14:00 12/13/17 13:59 11/14/17 13:18 100 MG Losartan Potassium (coZAAR TAB) 50 mg DAILY PO 11/14/17 09:00 12/14/17 08:59 11/14/17 08:15 50 MG Metformin HCl (Glucophage Extended Rel Tab) 1,000 mg BID PO 11/13/17 21:00 12/13/17 20:59 11/14/17 08:15 1,000 MG Sitagliptin Phosphate (Januvia Tab) 100 mg QPM PO 11/13/17 21:00 12/13/17 20:59 11/13/17 20:25 100 MG Tamsulosin HCl (Flomax Cap) 0.4 mg QPM PO 11/13/17 21:00 12/13/17 20:59 11/13/17 20:26 0.4 MG Warfarin Sodium (Coumadin Tab) 5 mg 1600 PO 11/13/17 16:00 12/13/17 15:59 11/14/17 17:29 5 MG Metoprolol Succinate (Toprol Xl Tab) 25 mg QAM PO 11/14/17 09:00 12/14/17 08:59 11/14/17 08:15 25 MG Insulin Aspart (novoLOG ASPART) SLIDING SCALE G... ACHS SC 11/14/17 07:00 12/14/17 06:59 11/14/17 17:27 4 UNITS Objective Vital Signs Date Time Temp Pulse Resp B/P (MAP) Pulse Ox O2 Delivery O2 Flow Rate FiO2 11/14/17 16:00 94 Room Air 11/14/17 16:00 Room Air 11/14/17 15:40 36.6 60 18 152/74 (100) 94 Room Air 11/14/17 12:51 70 145/74 (97) 11/14/17 12:51 73 144/84 (104) 11/14/17 12:50 63 145/79 (101) 11/14/17 12:00 Room Air 11/14/17 11:29 167/80 (109) 11/14/17 11:28 36.8 62 20 148/86 (106) 94 Room Air 11/14/17 11:28 165/91 (115) 11/14/17 08:00 Room Air 11/14/17 07:24 37.0 66 16 145/73 (97) 92 Room Air 11/14/17 04:00 Room Air 11/14/17 03:52 36.4 71 20 160/92 (114) 94 Room Air 11/13/17 23:59 94 Room Air 11/13/17 23:59 Room Air 11/13/17 23:22 36.9 63 22 145/80 (101) 94 Room Air 11/13/17 20:34 36.7 63 18 146/75 (98) 94 Room Air 11/13/17 20:00 Room Air Physical Exam General Appearance: WD/WN, no apparent distress Eyes: PERRL, + abnormal EOM (Some nystagmus towards the right ear with head turning to the left) ENT: normal ENT inspection, hearing grossly normal Respiratory/Chest: chest non-tender, lungs clear, normal breath sounds Cardiovascular: regular rate, rhythm, no murmur, + pertinent finding (incision site CDI) Abdomen: normal bowel sounds, non tender, soft Extremities: non-tender, normal inspection, no calf tenderness Neurologic/Psychiatric: no motor/sensory deficits, alert, normal mood/affect, oriented x 3 Skin: normal color, no rash Laboratory Results Last Resulted 11/14/17 06:46 Red Blood Count 4.41, Mean Corpuscular Volume 86.8, Mean Corpuscular Hemoglobin 29.5, Mean Corpuscular Hemoglobin Concent 33.9, Mean Platelet Volume 10.3, Neutrophils (%) (Auto) 77.5, Lymphocytes (%) (Auto) 12.7, Monocytes (%) (Auto) 6.0, Eosinophils (%) (Auto) 3.2, Basophils (%) (Auto) 0.3, Neutrophils # (Auto) 5.39, Lymphocytes # (Auto) 0.88, Monocytes # (Auto) 0.42, Eosinophils # (Auto) 0.22, Basophils # (Auto) 0.02 Last Resulted 11/14/17 06:46 Past 24 Hours Test 11/14/17 06:46 Range/Units Prothromb Time International Ratio 1.9 H 0.9-1.1 Prothrombin Time 19.4 H 9.0-12.0 SECONDS Assessment and Plan 62 year old male PMH of afib, DM, HTN, Prostate cancer, ALISSA, Peripheral neuropathy, CAD/NV, and gout presented with dizziness and was found to be in afib with slow ventricular rate. Afib with slow ventricular rate/variable block, s/p pacemaker placement - Cardiology consult: Day 1 post-pacemaker insertion, interrogation reveals sinus rhythm Started on metoprolol 25 daily F/U with cardio in 7-10 days, possible discussion of further treatment ( cardioversion, amio/antiarrhythmic) if afib persists - home meds resumed Dizziness - Patient continued to report day 1 post-procedure, at rest and with movement - States he has had vertiginous symptoms 20+ years ago which went away on their own. - ? residual anesthesia/equilibration of pacemaker/BPPV/Vestibular neuritis - Carotid dopplers and orthostatic BPs non-contributory - Meclizine 12.5 did not resolve symptoms - Bi maneuver did not resolve symptoms - Ordered 40 mg prednisone - Will monitor symptoms and discharge when he can ambulate without dizziness Acute kidney injury - resolved - ? sec to dehydration from acute illness Hx of NV/CAD - hx of triple bypass s/p NV in 2009 - aspirin and lipitor - negative troponin - denies chest pain DM - hold home meds - ISS Peripheral neuropathy - Left worse than right leg - on gabapentin HTN - well controlled currently - Resume amlodipine and losartan Afib - INR of 1.9 - warfarin - trend INR H/O Prostate Cancer - continue tamsulosin Code: Full DVTP: Warfarin w/ INR of 1.9 Dispo: Tele Resident Tracking Resident Involvement: Resident Care Provided Care Provided: Adult Hospital Medicine Reviewed: Pt Seen/Exam by Me History continues to be dizzi with being upright. Constitutional: denies: fever Respiratory: negative: short of breath Cardiovascular: denies chest pain General Appearance: no apparent distress Respiratory: lungs clear, no respiratory distress Cardiovascular: regular rate, rhythm Gastrointestinal: soft Neurologic/Psychiatric: alert, oriented x 3 Skin Characteristics: warm/dry Assessment/Plan Resident Physician Supervision Note: I independently interviewed and examined the patient and verified the kiser history and physical, reviewed labs and image studies, discussed the case with the resident Dr. Stevenson and agree with the findings and care plan.
[2017-11-14] MEDS: TAMSULOSIN HCL 0.4 MG CAP PO SCH (20:23)
[2017-11-14] MEDS: ATORVASTATIN 40 MG TAB PO SCH (20:24)
[2017-11-14] MEDS: SITAGLIPTIN 100 MG TAB PO SCH (20:24)
[2017-11-15 03:21] VITALS: BP 149/80; PULSE 61; TEMP 36.8; O2SAT 95
[2017-11-15 07:26] VITALS: BP_SYST 132; BP_SYST 145; BP_SYST 150; BP_DIAS 77; BP_DIAS 78; BP_DIAS 82; PULSE 93; TEMP 36.7; O2SAT 93
[2017-11-15] MEDS: METOPROLOL SUCC 25MG EXT REL TAB PO SCH (07:52)
[2017-11-15] MEDS: ASPIRIN 81 MG ECTAB PO SCH (07:52)
[2017-11-15] MEDS: GABAPENTIN 100 MG CAP PO SCH ×2 (07:52→14:30)
[2017-11-15] MEDS: AMLODIPINE BESYLATE 5 MG TAB PO SCH (07:53)
[2017-11-15] MEDS: METFORMIN HCL 500 MG TABCR PO SCH (07:53)
[2017-11-15] MEDS: LOSARTAN POTASSIUM 50 MG TAB PO SCH (07:53)
[2017-11-15] MEDS: INSULIN ASPART 100 UNITS/ML 3 ML PEN SC SCH ×2 (07:55→12:51)
[2017-11-15 08:45] LABS: HEMATOCRIT 39.7 % (42-52); HEMOGLOBIN 13.6 g/dL (14.0-18.0); MEAN CELL VOLUME 85.7 fL (80-100); MEAN CORPUSCULAR HEMOGLOBIN 29.4 pg (25-34); MEAN CORPUSCULAR HGB CONC 34.3 g/dl (32-36); MEAN PLATELET VOLUME 10.2 fL (7.4-10.4); PLATELET COUNT 183 K/uL (130-400); RED CELL DISTRIBUTION WIDTH CV 14.7 % (11.5-14.5); RED CELL DISTRIBUTION WIDTH SD 45.7 fL (36.4-46.3); WHITE BLOOD COUNT 10.54 K/uL (4.8-10.8)
[2017-11-15 08:53] LABS: INR 1.7 (0.9-1.1)
--- NOTE | 2017-11-15 09:10 | Cardiology Follow-Up ---
Subjective General Date of Service: Nov 15, 2017. Chief Complaint: dizziness; SSS; PAF Pt evaluation today including: conversation w/ patient, physical exam, chart review, lab review, review of studies, review of inpatient medication list History of Present Illness Patient still has mild dizziness with movement, walking but reports symptoms have improved since yesterday. Reports he did not sleep well due to prednisone. Has mild dull headache this AM. No vision changes. No slurred speech. No weakness. No incision pain. No chest pain or SOB. No palpitations. Telemetry reviewed - intermittent AV pacing, NSR Allergies Coded Allergies: No Known Allergies (Verified , 11/13/17) Social History Smoking Status: Never Smoker Hx Tobacco Use In Past Year?: No Hx Alcohol Use - Type And Amou: No Hx Substance Use - Type And Am: No Problem List Medical Problems: (1) Atrial fibrillation Status: Chronic (2) Cellulitis of left lower extremity Status: Acute (3) Chronic right shoulder pain Status: Acute (4) Chronic shoulder pain Status: Acute (5) Hemarthrosis, right shoulder Status: Acute (6) Hyperglycemia Status: Acute (7) Renal insufficiency Status: Acute (8) Symptomatic bradycardia Status: Acute Review of Systems Respiratory: No cough, No wheezing, No shortness of breath, No dyspnea at rest , No hemoptysis Cardiac: No chest pain, No orthopnea, No PND, No edema, No palpitations Physical Exam Vital Signs Last Vital Signs Documentation Date Time Temp Pulse Resp B/P (MAP) Pulse Ox O2 Delivery O2 Flow Rate FiO2 11/15/17 08:00 Room Air 11/15/17 07:26 36.7 93 18 145/78 (100) 93 132/77 (95) 150/82 (104) Physical Exam Constitutional: General Apperance: overweight Level of Distress: NAD Psychiatric: Mental Status: active & alert Orientation: to time, to place, to person Eyes: Pupils: PERRLA Neck: supple Lungs: Respiratory effort: no dyspnea Auscultation: no wheezing, no rales/crackles Cardiovascular: Heart Auscultation: RRR, normal S1, normal S2, no murmurs, pertinent finding (left chest wall - incision without drainage) Abdomen: Bowel Sounds: normal Inspection & Palpation: soft, non-distended Extremities: no edema Assessment and Plan Assessment and Plan 1. SSS s/p dual chamber pacemaker implant on 11/13/17 -tolerated procedure without incident -appropriate device function per interrogation this AM 2. PAF, converted to NSR post pacemaker -metoprolol succinate 25 mg restarted -continue Coumadin -monitor PT/INR 3. Dizziness, questionable vertigo, improved from admission but remains "off balance' -mildly improved this AM. -carotid duplex ok, orthostatic VS ok -treated with meclizine, prednisone, colleen man -head CT this AM -increase fluids 4. Hypertension - elevated on admission and this AM, Improved with resumption of home meds. Monitor 5. CAD - no anginal symptoms. Continue home meds. Case discussed with Dr. Macias. Will monitor. CARDIOLOGY ATTENDING ADDENDUM: The patient was seen and personally examined. Agree with Purnima Daigle PA-C's findings and plans as documented above. The patient's CT of the brain was negative for acute events. I believe that he may be discharged home with outpatient follow-up. His dizziness and vertigo have been slowly improving perhaps due to the Colleen maneuvers. Laboratory Results Last 24 Hours Test 11/14/17 11:20 11/14/17 16:31 11/14/17 20:10 11/15/17 07:15 Bedside Glucose 171 mg/dl 132 mg/dl 208 mg/dl 174 mg/dl Test 11/15/17 08:36 White Blood Count 10.54 K/uL Red Blood Count 4.63 M/uL Hemoglobin 13.6 g/dL Hematocrit 39.7 % Mean Corpuscular Volume 85.7 fL Mean Corpuscular Hemoglobin 29.4 pg Mean Corpuscular Hemoglobin Concent 34.3 g/dl RDW Standard Deviation 45.7 fL RDW Coefficient of Variation 14.7 % Platelet Count 183 K/uL Mean Platelet Volume 10.2 fL Prothrombin Time 17.4 SECONDS Prothromb Time International Ratio 1.7
[2017-11-15 09:18] LABS: CALCIUM 8.8 mg/dl (8.5-10.1); CREATININE 0.99 mg/dl (0.60-1.40); POTASSIUM 4.1 mmol/L (3.5-5.1)
--- NOTE | 2017-11-15 10:31 | DIAGNOSTIC IMAGING REPORT ---
HEAD WITHOUT CONTRAST (CT) CLINICAL HISTORY: 62 years-old Male with dizziness, headache. Acute dizziness with headache TECHNIQUE: Multiple axial CT images of the head were obtained without contrast. A dose lowering technique was utilized adhering to the principles of ALARA. CT DOSE: 687.98 mGy.cm COMPARISON: None. FINDINGS: No acute intracranial hemorrhage, midline shift, intracranial mass, hydrocephalus, territorial ischemia or abnormal extra-axial collection. Minimal atrophy. The calvarium is intact. The paranasal sinuses, mastoid air cells, and middle ear cavities are clear. IMPRESSION: No acute intracranial abnormality. The above report was generated using voice recognition software. It may contain grammatical, syntax or spelling errors. Electronically signed by: Delmar Muñiz M.D. 11/15/2017 10:29 AM Dictated Date/Time: 11/15/2017 10:12 AM
[2017-11-15 11:19] VITALS: BP 148/77; PULSE 60; TEMP 36.6; O2SAT 94
--- NOTE | 2017-11-15 11:51 | Discharge Instructions ---
Discharge Instructions Date of Service Nov 15, 2017. Admission Reason for Admission: Symptomatic Bradycardia Discharge Discharge Diagnosis / Problem: SSS s/p dual chamber pacemaker implant Discharge Goals Goal(s): Improve function, Increase independence, Improve disease control Activity Recommendations Activity Limitations: per Instructions/Follow-up section . Instructions / Follow-Up Instructions / Follow-Up During this admission you were evaluated and treated for dizziness and lightheadedness. The tracing of your heart in conjunction with your symptoms indicated the need to place a pacemaker. You will be following up with your cardiology team in 7-10 days at their [facility]. No lifting with the left arm of anything over 10 pounds for 2 weeks. Avoid lifting the left elbow over the left shoulder for one month. You have been started on a new medication, metoprolol 25 mg. Take this once daily. Continue your other medications as prescribed. After your procedure, you continued to experience dizziness. The exact cause is unknown. Your blood pressure responded appropriately from lying to sitting to standing, the ultrasound of your carotid arteries and a CT scan of your head did not reveal any reason for your symptoms. A possible explanation is vestibular neuritis, for which some patients take a steroid taper. We recommend following up with your primary care physician within 7-10 days of discharge to discuss your symptoms and for further evaluation If your symptoms worsen or are accompanied by diaphoresis, chest discomfort, presyncope/syncope, please return to the ED. Current Hospital Diet Patient's current hospital diet: AHA Diet (Heart Healthy) Discharge Diet Recommended Diet: AHA Diet (Heart Healthy) Procedures Procedures Performed: dual chamber rate responsive permanent pacemaker under fluroscopic guidance with peripheral venogram Pending Studies Studies pending at discharge: no Laboratory Results Hemoglobin A1c Test 10/30/17 07:30 Range/Units Estimated Average Glucose 217 mg/dl Hemoglobin A1c 9.2 H 4.5-5.6 % Lipid Panel Test 10/30/17 07:30 Range/Units Triglycerides Level 162 H 0-150 mg/dl Cholesterol Level 95 0-200 mg/dl HDL Cholesterol 26 mg/dl Cholesterol/HDL Ratio 3.7 LDL Cholesterol, Calculated 37 mg/dl Medical Emergencies . Who to Call and When: Medical Emergencies: If at any time you feel your situation is an emergency, please call 911 immediately. . Non-Emergent Contact Non-Emergency issues call your: Primary Care Provider . . "Provider Documentation" section prepared by Rosaline Stevenson. .
[2017-11-15 12:00] VITALS: O2SAT 94
[2017-11-15 14:04] VITALS: BP 148/77; PULSE 60; TEMP 36.6; O2SAT 94
[2017-11-15] MEDS ORDERED: CMD5 PO (14:46)
[2017-11-15] MEDS ORDERED: WARF-237 PO (14:46)
[2017-11-15] MEDS ORDERED: TPRSR25 PO (14:46)
[2017-11-15] MEDS ORDERED: WARFARIN SOD 2.5 MG TAB PO ONE (16:00)
--- NOTE | 2017-11-15 19:46 | Discharge Summary ---
Discharge Summary Date of Service Nov 15, 2017. Discharge Summary Admission Date: Nov 13, 2017 at 02:14 Discharge Date: Nov 15, 2017 Discharge Disposition: Home Principal Diagnosis: SSS s/p pacemaker placement Problems/Secondary Diagnoses: (1) Atrial fibrillation Status: Chronic ALISSA CAD/[place] Gout Afib with slow ventricular rate/variable block, SSS, s/p pacemaker placement Dizziness Acute kidney injury DM Peripheral neuropathy HTN Afib H/O Prostate Cancer Immunizations: Have You Had Influenza Vaccine: No History of Tetanus Vaccine?: Yes History of Pneumococcal: Yes History of Hepatitis B Vaccine: No Procedures: Biventricular pacemaker placement Consultations: Cardiology Medication Reconciliation New Medications: Metoprolol Succinate (Metoprolol Succinate ER) 25 Mg Tabcr 25 MG PO QAM for 30 Days, #30 TAB Changed Medications: Warfarin Sod (Coumadin) 10 Mg Tab 10 MG PO 2XWK for 30 Days, #30 TAB 5 Refills (Changed from: CURRENTLY MONDAYS AND FRIDAYS) CURRENTLY Wednesdays AND FRIDAYS Warfarin Sod (Coumadin) 5 Mg Tab 5 MG PO 5XWK for 30 Days, #30 (Changed from: EVERY DAY EXCEPT SATURDAY AND FRIDAYS ) EVERY DAY EXCEPT Saturday AND FRIDAYS Continued Medications: Acetaminophen (Tylenol Arthritis Ext Rel) 650 Mg Cplt 650 MG PO Q8H PRN for Moderate Pain, CAP Amlodipine Besylate (Norvasc) 2.5 Mg Tab 2.5 MG PO QAM, 5 Refills Aspirin (Aspirin Ec) 81 Mg Tab 81 MG PO QAM Atorvastatin (Lipitor) 40 Mg Tab 40 MG PO HS, TAB Gabapentin (Neurontin) 100 Mg Cap 100 MG PO TID, 0 Refills Glipizide (Glipizide Er) 10 Mg Tab 10 MG PO DAILY for 90 Days, #90 TAB 1 Refill Indomethacin (Indocin) 25 Mg Cap 25-50 MG PO UD PRN for GOUT Losartan Potassium (Cozaar) 50 Mg Tab 50 MG PO DAILY, TAB Metformin Hcl Er (Glucophage Er) 500 Mg Tab 1000 MG PO BID Sitagliptin Phosphate (Januvia) 100 Mg Tab 100 MG PO QPM, TAB Tamsulosin Hcl (Flomax) 0.4 Mg Cap 0.4 MG PO QPM, CAP Discharge Exam Review of Systems: Constitutional: No fever, No chills ENT: + problem reported (Vertigo) Respiratory: No cough Cardiovascular: No chest pain Abdomen: No nausea, No vomiting Physical Exam: General Appearance: WD/WN, no apparent distress Eyes: + abnormal EOM (some horizontal nystagmus on head turning) ENT: hearing grossly normal Respiratory/Chest: lungs clear, normal breath sounds Cardiovascular: regular rate, rhythm, + abnormal peripheral pulses (left DP diminished ) Abdomen / GI: normal bowel sounds, non tender, soft Extremities: normal range of motion, + pertinent finding (arthritic changes to toes) Neurologic/Psychiatric: hat band attacher II-XII nml as tested, no motor/sensory deficits , alert, normal mood/affect Skin: normal color Hospital Course 62 year old male PMH of afib, DM, HTN, Prostate cancer, ALISSA, Peripheral neuropathy, CAD/NY, and gout presented with dizziness and was found to be in afib with slow ventricular rate. Afib with slow ventricular rate/variable block, SSS, s/p pacemaker placement - Cardiology consult: Day 2 post-pacemaker insertion, interrogation reveals sinus rhythm Started on metoprolol 25 daily F/U with cardio in 7-10 days, possible discussion of further treatment ( cardioversion, amio/antiarrhythmic) if afib persists - home meds resumed Dizziness - Patient continued to report post-procedure, at rest and with movement. Feels it is improved but still feels off balance - States he has had vertiginous symptoms 20+ years ago which went away on their own after a few days - ? residual anesthesia/equilibration of pacemaker/BPPV/Vestibular neuritis - Carotid dopplers and orthostatic BPs non-contributory - Meclizine 12.5 did not resolve symptoms - Bi maneuver did not resolve symptoms; consider further attempts as outpatient. - Ordered 40 mg prednisone; patient responded poorly (insomnia, elevated glucose ) and requested he not continue with steroids - Recommend following up closely with primary care physician and cardiology on discharge. - If symptoms worsen or are accompanied by diaphoresis, chest discomfort, presyncope/syncope, please return to the ED. Acute kidney injury - resolved - ? sec to dehydration from acute illness Hx of [place]/CAD - hx of triple bypass s/p [place] in 2009 - aspirin and lipitor - negative troponin - denies chest pain DM -Resume home meds Peripheral neuropathy - Left worse than right leg - on gabapentin HTN - well controlled currently - Resume amlodipine and losartan Afib - INR of 1.9 - warfarin - trend INR H/O Prostate Cancer - continue tamsulosin Code: Full Total Time Spent: Greater than 30 minutes This includes examination of the patient, discharge planning, medication reconciliation, and communication with other providers. Discharge Instructions Please refer to the electronic Patient Visit Report (Discharge Instructions) for additional information. Follow-Up Cardiology, 7-10 days from discharge Additional Copies To Tequila Eubanks M.D. Resident Tracking Resident Involvement: Resident Care Provided Care Provided: Adult Hospital Medicine Reviewed: Pt Seen/Exam by Me History continues to be dizzi Constitutional: denies: fever Respiratory: negative: short of breath Cardiovascular: denies chest pain General Appearance: no apparent distress Respiratory: lungs clear, no respiratory distress Cardiovascular: regular rate, rhythm Neurologic/Psychiatric: alert, oriented x 3 Skin Characteristics: warm/dry Assessment/Plan Resident Physician Supervision Note: I independently interviewed and examined the patient and verified the kiser history and physical, reviewed labs and image studies, discussed the case with the resident Dr. Stevenson and agree with the findings and care plan. Time spent in discharge 35 min
== END 2017-11-15 15:26 | disposition home or self-care (01) | DRG 243 ==
LOC: C.EDB 22:30 → C.MED 11-13 02:14 → ENRESERV 11-13 03:19 → C.MED 11-13 03:29 → ENRESERV 11-13 14:00 → C.2T 11-13 14:39
PROVIDERS: ADMIT Internal Medicine; ATTEND Family Medicine
PROC: 02HK3JZ Insertion of Pacemaker Lead into Right Ventricle, Percutaneous Approach (ICD-10-PCS; principal; 2017-11-13 12:12)
PROC: 0JH606Z Insertion of Pacemaker, Dual Chamber into Chest Subcutaneous Tissue and Fascia, Open Approach (ICD-10-PCS; principal; 2017-11-13 12:12)
PROC: 02H63JZ Insertion of Pacemaker Lead into Right Atrium, Percutaneous Approach (ICD-10-PCS; principal; 2017-11-13 12:12)
DX: I49.5 Sick sinus syndrome (principal); N17.9 Acute kidney failure, unspecified; I44.2 Atrioventricular block, complete; I48.1 Persistent atrial fibrillation; R42 Dizziness and giddiness; E11.65 Type 2 diabetes mellitus with hyperglycemia; I48.0 Paroxysmal atrial fibrillation; I11.9 Hypertensive heart disease without heart failure; I25.10 Atherosclerotic heart disease of native coronary artery without angina pectoris; I25.2 Old myocardial infarction; E78.5 Hyperlipidemia, unspecified; E11.42 Type 2 diabetes mellitus with diabetic polyneuropathy; E66.3 Overweight; Z51.81 Encounter for therapeutic drug level monitoring; Z79.899 Other long term (current) drug therapy; Z79.01 Long term (current) use of anticoagulants; Z79.82 Long term (current) use of aspirin; Z79.84 Long term (current) use of oral hypoglycemic drugs; Z95.1 Presence of aortocoronary bypass graft; Z85.46 Personal history of malignant neoplasm of prostate; Z68.36 Body mass index [BMI] 36.0-36.9, adult; Z82.49 Family history of ischemic heart disease and other diseases of the circulatory system; Z83.3 Family history of diabetes mellitus

== ENCOUNTER 2019-02-16 02:54 | Inpatient (IN) ==
[2019-02-16] MEDS ORDERED: SODIUM CHLORIDE 0.9% 500 ML IV STA (03:02)
[2019-02-16] MEDS ORDERED: ONDANSETRON INJ 2 MG/ML 2 ML VIAL IV STA (03:02)
[2019-02-16] MEDS ORDERED: MoRPHine SULFATE 10 MG/ML CARP/VIAL IV STA (03:02)
[2019-02-16] MEDS ORDERED: KETOROLAC TROMETHAMINE 15 MG/ML VIAL IV STA (03:02)
--- NOTE | 2019-02-16 03:11 | Emergency Department Note ---
History of Present Illness General Chief complaint: Kidney Stone Stated complaint: KIDNEY STONE History of Present Illness Maximum Pain Intensity: 10 This 63-year-old presents to the ER complaining of worsening flank pain who was seen by myself the other night and has a large ureteral stone Location: Left flank Quality: Achy Severity: Severe Duration: Past few days Timing: Started a few days ago Context: Pain got much worse and patient came in Modifying factors: better with nothing; worse with nothing Patient thought he could pass the stone on his own. He sees Dr. Ramsay. He has had multiple stents in the past. Patient tried OxyIR with minimal relief of symptoms. Patient denies chest pain, dyspnea, fevers, vomiting, weakness. No injury. Home Medications Home Medications Medication Instructions Recorded Confirmed Type amlodipine 2.5 mg PO QAM 06/26/18 02/16/19 History aspirin 81 mg PO QAM 06/26/18 02/16/19 History atorvastatin 40 mg PO HS 06/26/18 02/16/19 History losartan 50 mg PO QAM 06/26/18 02/16/19 History metformin 1,000 mg PO BID 06/26/18 02/16/19 History metoprolol succinate 25 mg PO QAM 06/26/18 02/16/19 History sitagliptin [Januvia] 100 mg PO HS 06/26/18 02/16/19 History tamsulosin 0.4 mg PO HS 06/26/18 02/16/19 History warfarin 5 mg PO 5XWK 06/26/18 02/16/19 History warfarin 10 mg PO 2XWK 06/26/18 02/16/19 History gabapentin 300 mg capsule 300 mg PO TID #270 cap 01/12/19 02/16/19 Rx glipizide [Glucotrol XL] 10 mg PO HS 01/21/19 02/16/19 History ondansetron HCl [Zofran] 4 mg PO Q6H #10 tab 02/15/19 02/16/19 Rx oxycodone 5 mg PO Q6H PRN #14 tab 02/15/19 02/16/19 Rx Allergies Allergy/AdvReac Type Severity Reaction Status Date / Time No Known Allergies Allergy Verified 02/16/19 03:22 Past Med/Surg History Medical History Hypertension (Chronic) Atrial fibrillation (Chronic) Dyslipidemia (Chronic) ALISSA (obstructive sleep apnea) (Chronic) CAD (coronary artery disease) (Chronic) Kidney stones Surgical History S/P TKR (total knee replacement) (Chronic 11/04/13) S/P CABG x 3 (Chronic) Social History Current Living Situation: Family Feels Safe at Home: Yes Smoking Status: Never smoker Review of Systems All systems reviewed & are unremarkable except as noted in HPI & below Physical Exam Vital Signs Vital Signs - 24 hr 02/16/19 02:57 Temperature 36.5 C Temperature Source Oral Sepsis Recent Fever Within 48 Hours No Sepsis Action Taken by Nursing No Action Required Pulse Rate 62 Respiratory Rate 22 Respiratory Effort / Characteristics Non-Labored Respiratory Depth Normal Blood Pressure 179/69 H Blood Pressure Mean 105 Blood Pressure Position Sitting Pulse Oximetry 99 Oxygen Delivery Method Room Air VITALS: Vitals are noted on the nurse's note and reviewed by myself. Vital signs stable. GENERAL: Pleasant male who appears in pain, in no acute distress, nondiaphoretic, well-developed well-nourished. SKIN: Capillary reflex less than 2 seconds. HEENT: Normocephalic. PERRLA. EOMI. Nares patent. Mucous membranes moist. Neck is supple without nuchal rigidity. HEART: Regular rate and rhythm LUNGS: Clear to auscultation bilaterally without wheezes, rales or rhonchi. No retractions or accessory muscle use. ABDOMEN: Positive bowel sounds x 4. Normal tympanic percussion. Soft, nontender, without masses or organomegaly. Anguiano sign negative. No guarding or rebound tenderness. No CVA tenderness MUSCULOSKELETAL: No gross musculoskeletal defects. NEURO: Patient was alert and oriented to person place and time. Normal sensation to light and sharp touch. No focal neurological deficits. Course Administered Medications Discontinued Medications Sodium Chloride (Nss) 500 mls @ 999 mls/hr IV .Q31M STA Stop: 02/16/19 03:32 Last Infusion: 02/16/19 03:53 Dose: 0 mls/hr Documented by: [id number] Admin: 02/16/19 03:20 Dose: 999 mls/hr Documented by: [id number] Ketorolac Tromethamine (Toradol) 10 mg IV NOW STA Stop: 02/16/19 03:03 Last Admin: 07/15/19 03:20 Dose: 10 mg Documented by: [id number] Morphine Sulfate (Morphine Sulfate) 6 mg IV NOW STA Stop: 02/16/19 03:03 Last Admin: 02/16/19 03:20 Dose: 6 mg Documented by: [id number] Ondansetron HCl (Zofran) 4 mg IV NOW STA Stop: 02/16/19 03:03 Last Admin: 02/16/19 03:20 Dose: 4 mg Documented by: [id number] Medical Decision Making Medical Records Attestation: I reviewed the patient's medical records. Home Medications Current Medication List: was personally reviewed by me Laboratory Data Attestation: I reviewed the patient's lab results. Result diagrams: 02/16/19 04:34 02/16/19 03:20 Lab Results 02/16/19 02/16/19 02/16/19 Range/Units 03:20 03:20 04:20 WBC Cancelled RBC Cancelled Hgb Cancelled Hct Cancelled MCV Cancelled MCH Cancelled MCHC Cancelled RDW Std Deviation Cancelled RDW Coeff of Suzy Cancelled Plt Count Cancelled MPV Cancelled Immature Gran % (Auto) % Neut % (Auto) % Lymph % (Auto) % Phelps % (Auto) % Eos % (Auto) % Baso % (Auto) % Immature Gran # (Auto) (0.00-0.02) K/uL Neut # (Auto) (1.4-6.5) K/uL Lymph # (Auto) (1.2-3.4) K/uL Phelps # (Auto) (0.11-0.59) K/uL Eos # (Auto) (0-0.5) K/uL Baso # (Auto) (0-0.2) K/uL Absolute Nucleated RBC Cancelled Nucleated RBC % (auto) Cancelled Platelet Estimate Cancelled Sodium 137 (136-145) mmol/L Potassium 4.3 (3.5-5.1) mmol/L Chloride 102 (98-107) mmol/L Carbon Dioxide 28 (21-32) mmol/L Anion Gap 7.0 (3-11) BUN 18 (7-18) mg/dl Creatinine 1.81 H D (0.6-1.4) mg/dl Est Cr Clr Drug Dosing 55.4 ml/min Est GFR ( Amer) 44.5 Est GFR (Non-Af Amer) 38.4 BUN/Creatinine Ratio 10.2 (10-20) Glucose 161 H (70-99) mg/dl Calcium 8.0 L (8.5-10.1) mg/dl Urine Color Urine Appearance (Clear) Urine pH (4.5-7.5) POC Urine pH 7 (4.5-7.5) Ur Specific [place] (1.000-1.030) Urine Protein (Negative) POC Urine Protein 1+ H (Negative) Urine Glucose (UA) (Negative) POC Ur Glucose (UA) 100 H (Normal) Urine Ketones (Negative) POC Urine Ketones Negative (Negative) Urine Blood (Negative) POC Urine Blood 50 H (Negative) Urine Nitrite (Negative) POC Urine Nitrite Negative (Negative) Urine Bilirubin (Negative) POC Urine Bilirubin Negative (Negative) Urine Urobilinogen (Negative) POC Urine Urobilinogen Normal (Normal) Ur Leukocyte Esterase (Negative) POC U Leukocyte Esteras Negative (Negative) Urine WBC (Auto) (0-5) /hpf Urine RBC (Auto) (0-4) /hpf U Hyaline Cast (Auto) (0-5) /lpf U Epithel Cells (Auto) (0-5) /lpf Urine Bacteria (Auto) (Negative) 02/16/19 02/16/19 Range/Units 04:20 04:34 WBC 9.74 RBC 4.16 L Hgb 12.4 L Hct 37.7 L MCV 90.6 MCH 29.8 MCHC 32.9 RDW Std Deviation 49.0 H RDW Coeff of Suzy 14.7 H Plt Count 126 L MPV 10.4 Immature Gran % (Auto) 0.2 % Neut % (Auto) 82.8 % Lymph % (Auto) 6.6 % Phelps % (Auto) 9.9 % Eos % (Auto) 0.4 % Baso % (Auto) 0.1 % Immature Gran # (Auto) 0.02 (0.00-0.02) K/uL Neut # (Auto) 8.07 H (1.4-6.5) K/uL Lymph # (Auto) 0.64 L (1.2-3.4) K/uL Phelps # (Auto) 0.96 H (0.11-0.59) K/uL Eos # (Auto) 0.04 (0-0.5) K/uL Baso # (Auto) 0.01 (0-0.2) K/uL Absolute Nucleated RBC Nucleated RBC % (auto) Platelet Estimate Sodium (136-145) mmol/L Potassium (3.5-5.1) mmol/L Chloride (98-107) mmol/L Carbon Dioxide (21-32) mmol/L Anion Gap (3-11) BUN (7-18) mg/dl Creatinine (0.6-1.4) mg/dl Est Cr Clr Drug Dosing ml/min Est GFR ( Amer) Est GFR (Non-Af Amer) BUN/Creatinine Ratio (10-20) Glucose (70-99) mg/dl Calcium (8.5-10.1) mg/dl Urine Color Yellow Urine Appearance Cloudy A (Clear) Urine pH 5.0 (4.5-7.5) POC Urine pH (4.5-7.5) Ur Specific [place] 1.032 H (1.000-1.030) Urine Protein Trace H (Negative) POC Urine Protein (Negative) Urine Glucose (UA) 1+ H (Negative) POC Ur Glucose (UA) (Normal) Urine Ketones Negative (Negative) POC Urine Ketones (Negative) Urine Blood 2+ H (Negative) POC Urine Blood (Negative) Urine Nitrite Negative (Negative) POC Urine Nitrite (Negative) Urine Bilirubin Negative (Negative) POC Urine Bilirubin (Negative) Urine Urobilinogen Negative (Negative) POC Urine Urobilinogen (Normal) Ur Leukocyte Esterase Negative (Negative) POC U Leukocyte Esteras (Negative) Urine WBC (Auto) 1-5 (0-5) /hpf Urine RBC (Auto) 5-10 H (0-4) /hpf U Hyaline Cast (Auto) 1-5 (0-5) /lpf U Epithel Cells (Auto) 5-10 H (0-5) /lpf Urine Bacteria (Auto) Negative (Negative) Imaging Data Attestation: I personally reviewed and interpreted this imaging study as follows: MDM Narrative Prior records/ancillary studies reviewed. Triage Nursing notes reviewed. The patient's history was concerning for left flank pain. Differential diagnosis: Etiologies such as renal colic, appendicitis, diverticulitis, mesenteric ischemia, aortic pathology, infections, inflammatory bowel disease, PUD, biliary pathology, UTI, as well as others were entertained. Physical examination findings: As above. ER treatment provided: Morphine, Zofran, Toradol, IV fluids On reassessment the patient felt better. Diagnostic interpretation by me: The labs revealed mild anemia. Urinalysis revealed hematuria. There was no sign of UTI. Rising creatinine level Imaging studies: Patient: ASTRID GUILLAUME Date: 02/14/19 MR#: [id number]: [address] Acct ID:[id number]: Date: [address] [place] [address] [facility] [id number] Age: 63Location: ED Sex: M Room/Bed: Att Phy: Diagnosis: KIDNEY STONE Kathy Phy: Tequila Eubanks MDService Date: 02/14/19 Fam Phy: Interpreting Phy: Tommy Hoover MD Admit Phy: Ordering Phy: Kayla Wren .DEISY cc: ~ CT SCAN OF THE ABDOMEN AND PELVIS WITH IV CONTRAST CLINICAL HISTORY: Left flank pain. COMPARISON STUDY: Abdominal CT dated 06/26/2018. TECHNIQUE: Following the IV administration of 94 cc of Optiray 320, CT scan of the abdomen and pelvis is performed from the lung bases to the proximal femora. Images are reviewed in the axial, sagittal, and coronal planes. IV contrast was administered without complication. A dose lowering technique was utilized adhering to the principles of ALARA. CT DOSE: 1342.51 mGy.cm FINDINGS: Lung bases: The patient is status post midline sternotomy. The heart is enlarged and without pericardial effusion. Pacemaker leads are noted. The coronary arteries are densely calcified. A tiny hiatal hernia is noted. There is bibasilar scarring/atelectasis. No airspace consolidation or pleural effusion is identified. Liver: The contrast-enhanced liver is enlarged, measuring 24 cm in length. The liver demonstrates diffusely diminished attenuation consistent with severe hepatic steatosis. Fatty sparing is noted adjacent to gallbladder fossa. There is no intrahepatic biliary ductal dilatation. The hepatic veins and portal veins are patent. Gallbladder: Unremarkable. Spleen: Normal in size and attenuation. Pancreas: Unremarkable. Adrenal glands: Unremarkable. Kidneys: The contrast enhanced kidneys are normal in size. There is an 18 mm obstructing calculus identified just below the left ureteropelvic junction. This is seen on axial image #231 at the level of L3-L4 and causes mild to moderate left hydronephrosis. There is no right-sided hydronephrosis. An additional 3 mm nonobstructing calculus is seen in the lower pole of left kidney. No right renal calculi are clearly identified On this contrast-enhanced examination. There is left-sided perinephric stranding and fluid. The left kidney demonstrates h eterogeneously diminished perfusion as compared the right. A subcentimeter cortical hypodensity in the interpolar left kidney likely represents a cyst but is too small for definitive characterization. Abdominal vasculature: There is mild to moderate atherosclerotic calcification and mild ectasia of the abdominal aorta. Bowel: There is mild colonic diverticulosis without CT evidence of acute dive rticulitis. No bowel obstruction is seen. The appendix is not identified and reported surgically absent. Peritoneum: There is no intraperitoneal free air or abdominal ascites. Lymphadenopathy: None. Pelvic viscera: Evaluation of the pelvis is degraded by streak artifact from a left hip arthroplasty. Brachytherapy seeds are noted in the prostate gland which appears diminutive and heterogeneous. The bladder is normal as visualized. Skeletal structures: The skeletal structures are osteopenic. No lytic or blastic lesions are seen. Moderate lumbosacral spondylosis is observed. Degenerative change and partial fusion is noted in the sacroiliac joints. Arthritic change is seen in the right hip. A left hip arthroplasty is in place. IMPRESSION: 1. There is an 18 mm obstructing calculus in the proximal left ureter just below the ureteropelvic junction. This causes [id number] left-sided hydronephrosis. 2. An additional 3 mm nonobstructing calculus is seen in the left lower pole. 3. There is left-sided perinephric stranding and fluid, as well as heterogeneously diminished enhancement of the left kidney. This is likely related to obstruction/hydronephrosis. Correlate clinically and with urinalysis for evidence of superimposed infection. 4. Hepatomegaly and severe hepatic steatosis. 5. Cardiomegaly. 6. Mild colonic diverticulosis without CT evidence of acute diverticulitis. 7. Additional findings as above. Electronically signed by: Tommy Hoover M.D. US RENAL: 1.5 cm echogenic structure with shadowing in the left ureter causing mild left hydronephrosis. The position of the stone is probably unchanged from previous CT. 4 mm echogenic structure in the inferior left kidney is consistent with an additional nonobstructing stone. Normal right kidney. Hepatic steatosis. Radiologist: Jonah Clarke MD Consultation: A consultation was placed with Dr. Sahu, hospitalist. The case was discussed and diagnostics were reviewed. The patient was evaluated in the ER for further treatment. It appears that the patient has isolated renal colic from a left sided stone. Patient still moderate amount of pain. This is a second ER visit. Medicine was consulted. He has a huge left ureteral stone. Patient is agreeable treatment plan of admission. No UTI. By the evaluation outlined above emergent etiologies such as appendicitis, diverticulitis, mesenteric ischemia, aortic pathology, infections, inflammatory bowel disease, PUD, biliary pathology, UTI, as well as others were deemed relatively unlikely. The pt informed about the findings as listed above. All questions were answered and pleased with the treatment. Case reviewed with my attending The chart was completed utilizing [employer] Speech voice recognition software. Grammatical errors, random word insertions, pronoun errors, and incomplete sentences are an occassional consequence of this system due to software limitations, ambient noise, and hardware issues. Any formal questions or concerns about the content, text, or information contained within the body of this dictation should be directly addressed to the physician trading assistant for clarification. Impression & Plan Renal colic on left side, Ureterolithiasis, Intractable back pain Discharge Plan Visit Data Chief Complaint: Kidney Stone Stated Complaint: KIDNEY STONE ED Provider: Joelle Hernandez ED Midlevel Provider: Kayla Wren Discharge Problem: Renal colic on left side, Ureterolithiasis, Intractable back pain Patient Disposition: Being Evaluated by Hospitalist Condition: Fair Forms Stand Alone Forms: My [facility] Prescriptions Prescriptions: No Action gabapentin 300 mg capsule 300 mg PO TID Qty: 270 RF: 4 losartan 50 mg Tablet 50 mg PO QAM RF: 0 atorvastatin 40 mg Tablet 40 mg PO HS RF: 0 warfarin 10 mg Tablet 10 mg PO 2XWK RF: 0 amlodipine 2.5 mg Tablet 2.5 mg PO QAM RF: 0 aspirin 81 mg Tablet,Delayed Release (Dr/Ec) 81 mg PO QAM RF: 0 tamsulosin 0.4 mg Capsule 0.4 mg PO HS RF: 0 metformin 1,000 mg Tablet 1,000 mg PO BID RF: 0 warfarin 5 mg Tablet 5 mg PO 5XWK RF: 0 metoprolol succinate 25 mg Tablet Extended Release 24 Hr 25 mg PO QAM RF: 0 Januvia 100 mg Tablet 100 mg PO HS RF: 0 glipizide [Glucotrol XL] 10 mg tablet extended release 24hr 10 mg PO HS RF: 0 ondansetron HCl [Zofran] 4 mg tablet 4 mg PO Q6H Qty: 10 RF: 0 oxycodone 5 mg tablet 5 mg PO Q6H PRN (Reason: pain) Qty: 14 RF: 0 Referrals Referrals: Tequila Eubanks MD [Primary Care Provider] -
[2019-02-16 03:48] LABS: BUN Creatinine Ratio 10.2 (10-20); Creatinine Clr Calc Pharmacy 55.4 ml/min; Est GFR (African American) 44.5; Est GFR (Non-African American) 38.4
[2019-02-16 03:52] LABS: Potassium 4.3 mmol/L (3.5-5.1)
[2019-02-16 04:38] LABS: Appearance Urine Cloudy (Clear); Bacteria Urine Automated Negative (Negative); Bilirubin Urine Negative (Negative); Blood Urine 2+ (Negative); Color Urine Yellow; Glucose Urine UA 1+ (Negative); Ketones Urine Negative (Negative); Leukocyte Esterase Urine Negative (Negative); Nitrite Urine Negative (Negative); Protein Urine Trace (Negative); Specific Gravity Urine 1.032 (1.000-1.030); Urobilinogen Urine Negative (Negative)
[2019-02-16 04:44] LABS: Basophils # (auto) 0.01 K/uL (0-0.2); Basophils % (auto) 0.1 %; Eosinophils # (auto) 0.04 K/uL (0-0.5); Eosinophils % (auto) 0.4 %; Hematocrit (blood only) 37.7 % (42-52); Hemoglobin 12.4 g/dL (14.0-18.0); Immature Granulocytes # (auto) 0.02 K/uL (0.00-0.02); Immature Granulocytes % (auto) 0.2 %; Lymphocytes # (auto) 0.64 K/uL (1.2-3.4); Lymphocytes % (auto) 6.6 %; Mean Corpuscular Hgb Conc 32.9 g/dL (32-36); Mean Corpuscular Volume 90.6 fL (80-100); Mean Platelet Volume 10.4 fL (7.4-10.4); Monocytes # (auto) 0.96 K/uL (0.11-0.59); Monocytes % (auto) 9.9 %; Neutrophils # (auto) 8.07 K/uL (1.4-6.5); Neutrophils % (auto) 82.8 %; Platelet Count 126 K/uL (130-400); RDW Coefficient of Variation 14.7 % (11.5-14.5); Red Blood Count 4.16 M/uL (4.7-6.1); White Blood Count 9.74 K/uL (4.8-10.8)
--- NOTE | 2019-02-16 05:39 | History & Physical Report ---
Date of Service February 16, 2019 Assessment & Plan (1) Calculus of proximal left ureter: 18 mm proximal left ureteral calculus with mild to moderate left hydronephrosis/failure of outpatient treatment- Follow urine culture and sensitivity. Ceftriaxone 1 g IV daily. Acetaminophen 1000 mg IV every 8 hours as needed mild pain or temperature. Morphine sulfate 4 mg IV every 3 hours as needed severe pain. NSS at 100 mils per hour. Zofran 4 mg IV every 6 hours as needed. Consult his urologist Dr. Ramsay. Present on Admission?: Yes (2) Hydronephrosis of left kidney: See above. Present on Admission?: Yes (3) Acute kidney injury: Creatinine upon admission today 1.81. Creatinine on 02/14 was 1.20. Patient was given IV contrast on 02/14. Patient was given Toradol 10 mg IV by the ED tonight. He is also on an ARB losartan which will be held. He is also volume depleted due to dehydration. He may be developing ATN. We will place on normal saline at 100 mils per hour. Follow serial BMP and magnesium levels. Avoid any further toxic exposures. Present on Admission?: Yes (4) CAD (coronary artery disease): CAD/hypertension/history AV block Mobitz type I/tachybradycardia syndrome/paroxysmal atrial fibrillation- Hold aspirin and warfarin. Continue amlodipine, metoprolol succinate. Will be holding losartan due to acute kidney injury. Present on Admission?: Yes (5) Atrioventricular block, Mobitz type 1, Wenckebach: See above Present on Admission?: Yes (6) Tachy-rodrigo syndrome: See above Present on Admission?: Yes (7) Paroxysmal atrial fibrillation: See above Present on Admission?: Yes (8) Hypertension: See above Present on Admission?: Yes (9) Diabetes mellitus: Hold glipizide, metformin and Januvia. Place on Accu-Cheks before meals and at bedtime with NovoLog coverage per scale. Present on Admission?: Yes (10) ALISSA (obstructive sleep apnea): If required patient will use CPAP at bedtime Present on Admission?: Yes (11) Dyslipidemia: Continue atorvastatin 40 mg p.o. bedtime Present on Admission?: Yes (12) Peripheral neuropathy: Continue gabapentin 300 mg p.o. 3 times daily Present on Admission?: Yes History of Present Illness Chief Complaint: The patient presents to the emergency department with worsening pain over the left flank, where there is a known kidney stone and hydronephrosis detected 2 nights previously. Primary Care Provider: Tequila Eubanks MD Patient is a 63-year-old male with a past medical history including CAD, hypertension, atrial fibrillation on Coumadin, prostate cancer, dyslipidemia, tachybradycardia syndrome, ALISSA, status post CABG x3 and AV block Mobitz type I. He presented to the emergency department initially on 02/14 with left flank pain, underwent a CT scan of abdomen pelvis with contrast which showed an 18 mm proximal left ureteral stone just below the ureteropelvic junction, causing mild to moderate left hydronephrosis. He was discharged on oxycodone 5 mg every 6 hours as needed, to make a follow-up appointment with his urologist Dr. Ramsay, however, his symptoms worsened considerably overnight, and he presents to the emergency department for reassessment again tonight. Allergies Allergy/AdvReac Type Severity Reaction Status Date / Time No Known Allergies Allergy Verified 02/16/19 03:22 Home Medications Home Medications Medication Instructions Recorded Confirmed Type amlodipine 2.5 mg PO QAM 06/26/18 02/16/19 History aspirin 81 mg PO QAM 06/26/18 02/16/19 History atorvastatin 40 mg PO HS 06/26/18 02/16/19 History losartan 50 mg PO QAM 06/26/18 02/16/19 History metformin 1,000 mg PO BID 06/26/18 02/16/19 History metoprolol succinate 25 mg PO QAM 06/26/18 02/16/19 History sitagliptin [Januvia] 100 mg PO HS 06/26/18 02/16/19 History tamsulosin 0.4 mg PO HS 06/26/18 02/16/19 History warfarin 5 mg PO 5XWK 06/26/18 02/16/19 History warfarin 10 mg PO 2XWK 06/26/18 02/16/19 History gabapentin 300 mg capsule 300 mg PO TID #270 cap 01/12/19 02/16/19 Rx glipizide [Glucotrol XL] 10 mg PO HS 01/21/19 02/16/19 History ondansetron HCl [Zofran] 4 mg PO Q6H #10 tab 02/15/19 02/16/19 Rx oxycodone 5 mg PO Q6H PRN #14 tab 02/15/19 02/16/19 Rx Past Med/Surg History Medical History Hypertension (Chronic) Atrial fibrillation (Chronic) Dyslipidemia (Chronic) ALISSA (obstructive sleep apnea) (Chronic) CAD (coronary artery disease) (Chronic) Kidney stones Surgical History S/P TKR (total knee replacement) (Chronic 11/04/13) S/P CABG x 3 (Chronic) Social History Current Living Situation: Family Feels Safe at Home: Yes Smoking Status: Never smoker Review of Systems Review of Systems: The patient denies chest pain, palpitations, shortness of breath, dyspnea on exertion, cough, lower extremity swelling, sore throat, fevers, chills, sweats, diarrhea , constipation, blood in stool, dysuria, urinary frequency or urgency, lightheadedness, dizziness, headache, memory loss, loss of consciousness, rash, abnormal bruising or bleeding, imbalance, focal or generalized weakness, numbness or tingling in arms or legs, neck pain, or night sweats. The review of systems is otherwise negative other than for that already noted above, and at least 10 systems have been reviewed. Physical Exam Physical Exam: The patient is awake, alert and oriented 3, well developed and well nourished, normocephalic and atraumatic, lying in bed and in no acute distress. HEENT--PERRL, EOMI, mucous membranes and oropharynx normal. Neck--supple. No JVD. No bruits. Thyroid normal, trachea midline, no adenopathy. Heart--normal S1 and S2. No murmurs, rubs or gallops. Lungs--clear bilaterally, no respiratory distress, no accessory muscle use. Abdomen--normal bowel sounds and soft. Nontender. Nondistended. Morbidly obese Extremities--no cyanosis or clubbing. No edema. There are good distal pulses b/l. Dermatologic--normal skin turgor, normal color, no abnormal lymph nodes, no rash. Neurologic--cranial nerves II through XII grossly intact. Rheumatologic--normal range of motion. Psychiatric--normal affect. Results & Data Vital Signs (Past 12 Hours) Vital Signs Temp Pulse Resp BP Pulse Ox 02/16/19 02:57 97.7 F 62 22 179/69 H 99 Laboratory Results Laboratory Results WBC 9.74 K/uL (4.8-10.8) 02/16/19 04:34 RBC 4.16 M/uL (4.7-6.1) L 02/16/19 04:34 Hgb 12.4 g/dL (14.0-18.0) L 02/16/19 04:34 Hct 37.7 % (42-52) L 02/16/19 04:34 MCV 90.6 fL (80-100) 02/16/19 04:34 MCH 29.8 pg (25-34) 02/16/19 04:34 MCHC 32.9 g/dL (32-36) 02/16/19 04:34 RDW Std Deviation 49.0 fL (36.4-46.3) H 02/16/19 04:34 RDW Coeff of Suzy 14.7 % (11.5-14.5) H 02/16/19 04:34 Plt Count 126 K/uL (130-400) L 02/16/19 04:34 MPV 10.4 fL (7.4-10.4) 02/16/19 04:34 Immature Gran % (Auto) 0.2 % 02/16/19 04:34 Neut % (Auto) 82.8 % 02/16/19 04:34 Lymph % (Auto) 6.6 % 02/16/19 04:34 [place] % (Auto) 9.9 % 02/16/19 04:34 Eos % (Auto) 0.4 % 02/16/19 04:34 Baso % (Auto) 0.1 % 02/16/19 04:34 Immature Gran # (Auto) 0.02 K/uL (0.00-0.02) 02/16/19 04:34 Neut # (Auto) 8.07 K/uL (1.4-6.5) H 02/16/19 04:34 Lymph # (Auto) 0.64 K/uL (1.2-3.4) L 02/16/19 04:34 [place] # (Auto) 0.96 K/uL (0.11-0.59) H 02/16/19 04:34 Eos # (Auto) 0.04 K/uL (0-0.5) 02/16/19 04:34 Baso # (Auto) 0.01 K/uL (0-0.2) 02/16/19 04:34 Absolute Nucleated RBC Cancelled 02/16/19 03:20 Nucleated RBC % (auto) Cancelled 02/16/19 03:20 Platelet Estimate Cancelled 02/16/19 03:20 Sodium 137 mmol/L (136-145) 02/16/19 03:20 Potassium 4.3 mmol/L (3.5-5.1) 02/16/19 03:20 Chloride 102 mmol/L (98-107) 02/16/19 03:20 Carbon Dioxide 28 mmol/L (21-32) 02/16/19 03:20 Anion Gap 7.0 (3-11) 02/16/19 03:20 BUN 18 mg/dl (7-18) 02/16/19 03:20 Creatinine 1.81 mg/dl (0.6-1.4) H D 02/16/19 03:20 Est Cr Clr Drug Dosing 55.4 ml/min 02/16/19 03:20 Est GFR ( Amer) 44.5 02/16/19 03:20 Est GFR (Non-Af Amer) 38.4 02/16/19 03:20 BUN/Creatinine Ratio 10.2 (10-20) 02/16/19 03:20 Glucose 161 mg/dl (70-99) H 02/16/19 03:20 Calcium 8.0 mg/dl (8.5-10.1) L 02/16/19 03:20 Urine Color Yellow 02/16/19 04:20 Urine Appearance Cloudy (Clear) A 02/16/19 04:20 Urine pH 5.0 (4.5-7.5) 02/16/19 04:20 POC Urine pH 7 (4.5-7.5) 02/16/19 04:20 Ur Specific [place] 1.032 (1.000-1.030) H 02/16/19 04:20 Urine Protein Trace (Negative) H 02/16/19 04:20 POC Urine Protein 1+ (Negative) H 02/16/19 04:20 Urine Glucose (UA) 1+ (Negative) H 02/16/19 04:20 POC Ur Glucose (UA) 100 (Normal) H 02/16/19 04:20 Urine Ketones Negative (Negative) 02/16/19 04:20 POC Urine Ketones Negative (Negative) 02/16/19 04:20 Urine Blood 2+ (Negative) H 02/16/19 04:20 POC Urine Blood 50 (Negative) H 02/16/19 04:20 Urine Nitrite Negative (Negative) 02/16/19 04:20 POC Urine Nitrite Negative (Negative) 02/16/19 04:20 Urine Bilirubin Negative (Negative) 02/16/19 04:20 POC Urine Bilirubin Negative (Negative) 02/16/19 04:20 Urine Urobilinogen Negative (Negative) 02/16/19 04:20 POC Urine Urobilinogen Normal (Normal) 02/16/19 04:20 Ur Leukocyte Esterase Negative (Negative) 02/16/19 04:20 POC U Leukocyte Esteras Negative (Negative) 02/16/19 04:20 Urine WBC (Auto) 1-5 /hpf (0-5) 02/16/19 04:20 Urine RBC (Auto) 5-10 /hpf (0-4) H 02/16/19 04:20 U Hyaline Cast (Auto) 1-5 /lpf (0-5) 02/16/19 04:20 U Epithel Cells (Auto) 5-10 /lpf (0-5) H 02/16/19 04:20 Urine Bacteria (Auto) Negative (Negative) 02/16/19 04:20 Diagnostic Findings [place], [place] [phone] CT Scan Report Patient: ASTRID GUILLAUME Date: 02/14/19 MR#: [id number]: 136 MILAGROS Acct ID:[id number]: [facility] Zip[facility] [place] [address] Age: 63Location: ED Sex: M Room/Bed: Att Phy: Diagnosis: KIDNEY STONE Kathy Phy: Tequila Eubanks MDService Date: 02/14/19 Fam Phy: Interpreting Phy: Tommy Hoover MD Admit Phy: Ordering Phy: Kayla Wren PA-C cc: ~ CT SCAN OF THE ABDOMEN AND PELVIS WITH IV CONTRAST CLINICAL HISTORY: Left flank pain. COMPARISON STUDY: Abdominal CT dated 06/26/2018. TECHNIQUE: Following the IV administration of 94 cc of Optiray 320, CT scan of the abdomen and pelvis is performed from the lung bases to the proximal femora. Images are reviewed in the axial, sagittal, and coronal planes. IV contrast was administered without complication. A dose lowering technique was utilized adhering to the principles of ALARA. CT DOSE: 1342.51 mGy.cm FINDINGS: Lung bases: The patient is status post midline sternotomy. The heart is enlarged and without pericardial effusion. Pacemaker leads are noted. The coronary arteries are densely calcified. A tiny hiatal hernia is noted. There is bibasilar scarring/atelectasis. No airspace consolidation or pleural effusion is identified. Liver: The contrast-enhanced liver is enlarged, measuring 24 cm in length. The liver demonstrates diffusely diminished attenuation consistent with severe hepatic steatosis. Fatty sparing is noted adjacent to gallbladder fossa. There is no intrahepatic biliary ductal dilatation. The hepatic veins and portal veins are patent. Gallbladder: Unremarkable. Spleen: Normal in size and attenuation. Pancreas: Unremarkable. Adrenal glands: Unremarkable. Kidneys: The contrast enhanced kidneys are normal in size. There is an 18 mm obstructing calculus identified just below the left ureteropelvic junction. This is seen on axial image #231 at the level of L3-L4 and causes mild to moderate left hydronephrosis. There is no right-sided hydronephrosis. An additional 3 mm nonobstructing calculus is seen in the lower pole of left kidney. No right renal calculi are clearly identified On this contrast-enhanced examination. There is left-sided perinephric stranding and fluid. The left kidney demonstrates heterogeneously diminished perfusion as compared the right. A subcentimeter cortical hypodensity in the interpolar left kidney likely represents a cyst but is too small for definitive characterization. Abdominal vasculature: There is mild to moderate atherosclerotic calcification and mild ectasia of the abdominal aorta. Bowel: There is mild colonic diverticulosis without CT evidence of acute diverticulitis. No bowel obstruction is seen. The appendix is not identified and reported surgically absent. Peritoneum: There is no intraperitoneal free air or abdominal ascites. Lymphadenopathy: None. Pelvic viscera: Evaluation of the pelvis is degraded by streak artifact from a left hip arthroplasty. Brachytherapy seeds are noted in the prostate gland which appears diminutive and heterogeneous. The bladder is normal as visualized. Skeletal structures: The skeletal structures are osteopenic. No lytic or blastic lesions are seen. Moderate lumbosacral spondylosis is observed. Degenerative change and partial fusion is noted in the sacroiliac joints. Arthritic change is seen in the right hip. A left hip arthroplasty is in place. IMPRESSION: 1. There is an 18 mm obstructing calculus in the proximal left ureter just below the ureteropelvic junction. This causes [id number] left-sided hydronephrosis. 2. An additional 3 mm nonobstructing calculus is seen in the left lower pole. 3. There is left-sided perinephric stranding and fluid, as well as heterogeneously diminished enhancement of the left kidney. This is likely related to obstruction/hydronephrosis. Correlate clinically and with urinalysis for evidence of superimposed infection. 4. Hepatomegaly and severe hepatic steatosis. 5. Cardiomegaly. 6. Mild colonic diverticulosis without CT evidence of acute diverticulitis. 7. Additional findings as above. Electronically signed by: Tommy Hoover M.D. 02/15/2019 7:50 AM Dictated: 02/15/19 0742 Transcribed: 02/15/19 0742 Code Status & VTE Plan Code Status Full code VTE Prophylaxis Plan VTE Prophylaxis will be ordered: Yes PG Care Time/CCT Total # of Minutes Spent Total Time Spent with Patient: Total time spent is greater than 50% in coordination of care (as documented) at patient's floor/unit and/or counseling patient:
[2019-02-16 05:42] LABS: INR 1.9 (0.9-1.1); Partial Thromboplastin Ratio 1.2; Partial Thromboplastin Time 32.5 Seconds (21.0-31.0); Prothrombin Time 18.4 Seconds (9.0-12.0)
--- NOTE | 2019-02-16 06:33 | Ultrasound Report ---
EXAMINATION: RENAL ULTRASOUND CLINICAL HISTORY: flank pain, known stone COMPARISON STUDY: CT scan dated 02/15/2019 FINDINGS: The right kidney measures 12.3 cm. The left kidney measures 13.7 cm. There is left-sided h ydronephrosis. There is an 18 mm left UPJ calculus. There is equivocal punctate lower pole left renal calculus. No solid renal masses are visualized The bladder was decompressed the time of imaging. There is suspected hepatic steatosis. IMPRESSION : 18 mm left UPJ calculus with secondary hydronephrosis Electronically signed by: Jones Ruby M.D. 02/16/2019 6:32 AM
[2019-02-16] MEDS ORDERED: ONDANSETRON INJ 2 MG/ML 2 ML VIAL IV PRN ×2 (06:52→20:08)
[2019-02-16] MEDS ORDERED: MoRPHine SULFATE 4 MG/ML 1 ML CARP\\VIAL IV PRN (06:52)
[2019-02-16] MEDS ORDERED: OXYCODONE IR HOME PACK PO PRN (06:52)
[2019-02-16] MEDS ORDERED: ACETAMINOPHEN 1000 MG/100 ML IV IV PRN (06:52)
[2019-02-16] MEDS: SODIUM CHLORIDE 0.9% 1000ML 1,000 ML IV SCH ×2 (07:32→20:51)
[2019-02-16] MEDS: METOPROLOL SUCC 25MG EXT REL TAB PO SCH (08:34)
[2019-02-16] MEDS: GABAPENTIN 300 MG CAP PO SCH ×3 (08:34→21:34)
[2019-02-16] MEDS: AMLODIPINE BESYLATE 5 MG TAB PO SCH (08:35)
[2019-02-16] MEDS ORDERED: PHARMACY GLYCEMIC MGMT CONSULT SCH (08:36)
[2019-02-16] MEDS ORDERED: cefTRIAXone SODIUM 1,000 MG in DEXTROSE 5% 50 ML IV SCH (09:00)
[2019-02-16] MEDS ORDERED: cefTRIAXone SODIUM 2,000 MG in DEXTROSE 5% 50 ML IV SCH (09:00)
[2019-02-16] MEDS ORDERED: INSULIN ASPART 100 UNITS/ML 3 ML PEN SC STA (10:15)
[2019-02-16] MEDS: INSULIN ASPART 100 UNITS/ML 3 ML PEN SC SCH ×2 (13:34→21:36)
--- NOTE | 2019-02-16 15:19 | Pharmacy Report ---
Pharmacy Glycemic Short Note 2 - Date of Service February 16, 2019 - Glycemic Short BSG Results (Last 24 hours): 02/16/19 02/16/19 02/16/19 03:20 08:23 11:51 Glucose 161 H POC Glucose 210 H 157 H OUTPATIENT ANTIDIABETIC REGIMEN: * metformin 1000mg BID * sitagliptin 100mg hs * glipizide 10mg hs ASSESSMENT: * T2DM patient presenting with flank pain now NPO for ureteral stent placement today. Patient did have breakfast this morning prior to procedure and elevated AM BSG of 210 was post prandial. 5 units of insulin was given to cover the 27g of carbs consumed. Since fasting and lunchtime BSG were adequate, no basal insulin will be ordered until this evening. The evening lantus will be scaled and is assuming the patient will be ordered a diet post procedure. Lantus dose may need to be adjusted if NPO order continues. PLAN FOR INPATIENT GLYCEMIC CONTROL: * Hold outpatient oral diabetes medications * Basal insulin * Lantus scale this evening (10,15 or 20 units based on BSG-see MAR for details) * Bolus insulin * NovoLog per scale ACHS or Q6hrs while NPO * Goal Range: Low 120 mg/dL - High 160 mg/dL * Correction Factor: 20 mg/dL/unit * Nutritional / Prandial insulin per carb ratio of 1 unit per 6 grams CHO consumed PLAN FOR DISCHARGE: * TBD
[2019-02-16] MEDS ORDERED: ONDANSETRON INJ 2 MG/ML 2 ML VIAL ONE (18:16)
[2019-02-16] MEDS ORDERED: PROPOFOL IV EMULSION 10 MG/ML 20 ML VIAL IV ONE (18:16)
[2019-02-16] MEDS ORDERED: DEXAMETHASONE SOD INJ 4 MG/ML VIAL ONE (18:16)
[2019-02-16] MEDS ORDERED: MIDAZOLAM HCL 1 MG/ML 2ML VIAL ONE (18:16)
[2019-02-16] MEDS ORDERED: fentaNYL citrate 100 MCG/2 ML VIAL ONE (18:16)
[2019-02-16] MEDS ORDERED: LIDOCAINE HCL 2% 2 ML VIAL/AMP(20MG/ML) INFIL ONE (18:16)
[2019-02-16] MEDS ORDERED: IOTHALAMATE MEGLUMINE II 17.2% 250 ML VIAL ONE (18:17)
--- NOTE | 2019-02-16 18:28 | Urology Consultation ---
Date of Consultation February 16, 2019 Assessment & Plan (1) Calculus of proximal left ureter: obstructing large upper ureter stone left to OR for cysto left ureteroscopy laser litho basket stone stent described suegery and risks he signed consent had ceftriaxone this am will cover 24 hr rising creatinine INR is acceptable at 1.9 Present on Admission?: Yes History of Present Illness Reason for Consultation: obstructing left upper ureteral stone Requesting Physician: I am asked by Dr Baptiste to evaluate and treat patie nt for left ureteral stone. His stone is 18mm long and thin and obstructing. his creatinine is rising. he has pain. he is constipated. he has passed stones in past. he is under treatment for prostate cancer, had radiation and hormones. Attending Physician: Rian Tripathi Allergies Allergy/AdvReac Type Severity Reaction Status Date / Time No Known Allergies Allergy Verified 02/16/19 03:22 Home Medications Home Medications Medication Instructions Recorded Confirmed Type amlodipine 2.5 mg PO QAM 06/26/18 02/16/19 History aspirin 81 mg PO QAM 06/26/18 02/16/19 History atorvastatin 40 mg PO HS 06/26/18 02/16/19 History losartan 50 mg PO QAM 06/26/18 02/16/19 History metformin 1,000 mg PO BID 06/26/18 02/16/19 History metoprolol succinate 25 mg PO QAM 06/26/18 02/16/19 History sitagliptin [Januvia] 100 mg PO HS 06/26/18 02/16/19 History tamsulosin 0.4 mg PO HS 06/26/18 02/16/19 History warfarin 5 mg PO 5XWK 06/26/18 02/16/19 History warfarin 10 mg PO 2XWK 06/26/18 02/16/19 History gabapentin 300 mg capsule 300 mg PO TID #270 cap 01/12/19 02/16/19 Rx glipizide [Glucotrol XL] 10 mg PO HS 01/21/19 02/16/19 History ondansetron HCl [Zofran] 4 mg PO Q6H #10 tab 02/15/19 02/16/19 Rx oxycodone 5 mg PO Q6H PRN #14 tab 02/15/19 02/16/19 Rx Patient History Medical History Hypertension (Chronic) Atrial fibrillation (Chronic) Dyslipidemia (Chronic) ALISSA (obstructive sleep apnea) (Chronic) CAD (coronary artery disease) (Chronic) Kidney stones Surgical History S/P TKR (total knee replacement) (Chronic 11/04/13) S/P CABG x 3 (Chronic) Social History Preferred Language: Telugu Communication Ability: Effective Beliefs That Will Affect Care: None Current Living Situation: Alone Feels Safe at Home: Yes Smoking Status: Never smoker Second Hand Exposure: No Hx Alcohol Use: Yes Hx Substance Use: No Review of Systems Review of Systems: PMH- DM, HTN, cholesterol, afib, tachy/rodrigo av block pacemaker, sleep apnea PSH- brachy, lap carroll, Allergy- none Soc- + children, retired, no tobacco no alcohol Fam Hx- prostate cancer ROS- + chills, no fever, no rash, + constipation, no chest pain, no shortness of breath, no edema Physical Exam Constitutional: WD/WN, vitals as above + morbidly obese in obvious pain Eyes: PERRL, conjunctivae normal, anicteric sclerae Respiratory: normal respiratory effort, lungs clear to auscultation Cardiovascular: Extremities: normal capillary refill; no calf tenderness, no pedal edema and no edema Gastrointestinal (Abdomen): normal bowel sounds, soft, nontender, no hepatosplenomegaly Skin: no rashes, warm and dry Psychiatric: A+Ox3, euthymic affect Results & Data Vital Signs (Past 12 Hours) Vital Signs Temp Pulse Pulse Resp BP Pulse Ox 02/16/19 14:41 36.5 C 61 16 135/74 95 02/16/19 12:16 36.7 C 62 16 129/74 94 02/16/19 08:00 65 02/16/19 07:28 36.6 C 60 18 130/72 95
[2019-02-16] MEDS ORDERED: BELLADONNA/OPIUM SUPP 60 MG SUPP PR PRN (19:41)
[2019-02-16] MEDS ORDERED: BELLADONNA/OPIUM SUPP 60 MG SUPP PR ONE (19:41)
--- NOTE | 2019-02-16 19:53 | Operative Report ---
Post Operative Report Pre & Post Diagnosis Operation Date: 02/16/19 12:40 Pre-Op Diagnosis: Obstructing Left Ureteral Stone, Left Hydronephrosis Post-Op Diagnosis: Obstructing Left Ureteral Stone, Left Hydronephrosis Procedure Operation Date: 02/16/19 12:40 Actual Procedures p Cystoscopy, Left Ureteroscopy, Laser Lithotripsy, Basket Stone Extraction, Stent(Left) - Ann Ramsay MD Surgeon Ann Ramsay MD Machine Operator none Estimated Blood Loss 5 Findings Consistent with Post-Op Diagnosis radio-lucent soft yellow stone Fluids 1000mL Specimens left ureteral stone fragments Drains 6 fr 24 centimeter double j stent Anesthesia Type General Complications none Disposition Accompanied Patient To Recovery: Yes Disposition: Recovery Room Indications large obstructing left upper ureteral stone with hydro and renal insufficiency Description of Procedure Patient was given general LMA anesthesia easily and placed in lithotomy position. His genitals were prepped and draped in sterile fashion. Time out held with team. I placed a 21 fr rigid cystoscope to bladder. The urethra is remarkable for pale narrowing at the proximal bulbar urethra but it parted easily for the scope. The prostate is medium. The UOs are normal in location and slit shape. I placed a stiff wire up left ureter but it would not pass UPJ at expected location of stone. Stone is radio-lucent. I switched to a road runner wire which passed easily. I then passed the 5 fr open ended over the road runner to kidney and switched back to a stiff wire. I passed a dual lumen cath and the UO calibrated easily. I then placed the second wire again and passed a 12 fr 28 centimeter ureteral access sheath with very little resistance at the UO. I placed the flex ureteroscope to the stone in the upper ureter. I used a 270 micron holmium laser to fragment the stone with laser. it dusted well then a few fragments were pealed off the ureteral mari to which the stone adhered. I did go into kidney and lasered a few pieces found here. all stone is yellow and soft. I then carefully ensured ureter was tone free and withdrew scope and ureteral access sheath. I placed a 24 centimeter 6 Fr double J stent easily. There is brisk efflux after placement. I left bladder empty and concluded case. I placed a belladonna and opium suppository for post-op pain. He transferred to recovery under my escort, in stable condition. Plan: Home tomorrow Pyridium for dysuria x 3 days flomax daily oral pain meds as needed stent removal in office in 7-10 days ASA 3 clean contaminated case 22 seconds fluoro ceftriaxone antibiotic at 9am I attest to the content of the Intraoperative Record and any orders documented therein. Any exceptions are noted below.
[2019-02-16] MEDS ORDERED: fentaNYL citrate 100 MCG/2 ML VIAL IV PRN (20:08)
[2019-02-16] MEDS ORDERED: ePHEDrine sulfate 50 MG/ML AMP IV PRN (20:08)
[2019-02-16] MEDS ORDERED: ATROPINE SULFATE 0.1 MG/ML 10ML SYR IV PRN (20:08)
--- NOTE | 2019-02-16 20:08 | Anesthesiology Consultation ---
Date of Service February 16, 2019 Assessment & Plan (1) Encounter for pre-operative examination: Chart Review Chart Review: Acceptable Risk for Surgery and Patient NOT seen in Pre Admission Testing Consults Requested none ASA ASA3 Proposed Anesthesia Anesthesia Type: General Risk / Benefits Reviewed With: PT / POA / Parent / Guardian, Accepts Plan and In formed Consent Obtained History Surgery Operation Date: 02/16/19 12:40 Proposed Procedures p Stone Cystoscopy, Left Ureteroscopy, Laser Lithotripsy, Basket Stone Extraction, Stent - Ann Ramsay MD Height/Weight Height: 6 ft Weight: 124.5 kg Allergies Allergy/AdvReac Type Severity Reaction Status Date / Time No Known Allergies Allergy Verified 02/16/19 03:22 Medications Home Medications Medication Instructions Recorded Confirmed Last Taken amlodipine 2.5 mg PO QAM 06/26/18 02/16/19 02/15/19 aspirin 81 mg PO QAM 06/26/18 02/16/19 02/15/19 atorvastatin 40 mg PO HS 06/26/18 02/16/19 02/15/19 losartan 50 mg PO QAM 06/26/18 02/16/19 02/15/19 metformin 1,000 mg PO BID 06/26/18 02/16/19 02/15/19 metoprolol succinate 25 mg PO QAM 06/26/18 02/16/19 02/15/19 sitagliptin [Januvia] 100 mg PO HS 06/26/18 02/16/19 02/15/19 tamsulosin 0.4 mg PO HS 06/26/18 02/16/19 02/15/19 warfarin 5 mg PO 5XWK 06/26/18 02/16/19 02/15/19 warfarin 10 mg PO 2XWK 06/26/18 02/16/19 02/13/19 gabapentin 300 mg capsule 300 mg PO TID #270 cap 01/12/19 02/16/19 02/15/19 glipizide [Glucotrol XL] 10 mg PO HS 01/21/19 02/16/19 02/15/19 ondansetron HCl [Zofran] 4 mg PO Q6H #10 tab 02/15/19 02/16/19 02/15/19 22:00 oxycodone 5 mg PO Q6H PRN #14 tab 0702/16/19 02/15/19 22:00 Active Medications Generic Name Dose Route Start Last Admin Trade Name Freq PRN Reason Stop Dose Admin Amlodipine Besylate 2.5 mg 02/16/19 09:00 02/16/19 08:35 Norvasc PO 03/18/19 08:59 2.5 mg QAM JOSEP Administration Belladonna Alkaloids/Opium 60 mg 02/16/19 19:41 02/16/19 19:52 B & O Adult TN 03/02/19 19:40 60 mg PRN PRN Administration Bladder pain Gabapentin 300 mg 02/16/19 09:00 02/16/19 13:14 Neurontin PO 03/18/19 08:59 300 mg TID JOSEP Administration Sodium Chloride 1,000 mls @ 100 mls/hr 02/16/19 06:55 02/16/19 17:28 Nss 1000ml IV 03/18/19 06:54 0 mls/hr .Q10H JOSEP Infusion Ceftriaxone Sodium 2,000 mg/ 70 mls @ 140 mls/hr 02/16/19 09:00 02/16/19 09:16 Dextrose IV 02/26/19 08:59 Infused DAILY JOSEP Infusion Insulin Aspart 0 units 02/16/19 13:00 02/16/19 13:34 Novolog Flexpen SC 03/18/19 12:59 Not Given Q6 JOSEP Metoprolol Succinate 25 mg 02/16/19 09:00 02/16/19 08:34 Toprol Xl PO 03/18/19 08:59 25 mg QAM JOSEP Administration Morphine Sulfate 4 mg 02/16/19 06:52 02/16/19 10:00 Morphine Sulfate IV 03/02/19 06:51 4 mg Q3H PRN Administration Severe Pain Ondansetron HCl 4 mg 02/16/19 06:52 02/16/19 10:06 Zofran IV 03/18/19 06:51 4 mg Q6H PRN Administration NAUSEA/VOMITING NPO Date Last Intake of Fluids: 02/16/19 Time Last Intake of Fluids: 08:00 Date Last Intake of Solids: 02/16/19 Time Last Intake of Solids: 08:00 Past Medical History Medical History Hypertension (Chronic) Atrial fibrillation (Chronic) Dyslipidemia (Chronic) ALISSA (obstructive sleep apnea) (Chronic) CAD (coronary artery disease) (Chronic) Kidney stones Exercise / Class Metabolic Activity II 4-5 Yardwork/Stairs/Walk up hill Past Surgical History Surgical History S/P TKR (total knee replacement) (Chronic 11/04/13) S/P CABG x 3 (Chronic) Past Anesthesia History No Hx of Anesthesia Complications and No Family Hx of Anesthesia Complications History of PONV No Hx of PONV and No Hx of Motion Sickness Social History Smoking Status: Never smoker Do You Dip or Chew Tobacco: No Hx Alcohol Use: Yes alcohol intake frequency: holidays/special occasions only Hx Substance Use: No Physical Exam Vital Signs Last Vital Signs Temp 36.4 C L 02/16/19 19:56 Pulse 61 02/16/19 19:56 Resp 16 02/16/19 19:56 BP 135/80 02/16/19 19:56 Pulse Ox 98 02/16/19 19:56 Constitutional + obese ENMT Mouth: no dentition abnormality Thyromental Distance: > or= 3.5 Finger Breadths Mallampati Class: II Neck normal visual inspection Respiratory normal respiratory effort Auscultation: lungs clear to auscultation bilaterally Cardiovascular Rate/Rhythm: regular rate and regular rhythm Chest (Breasts) Chest: + pacemaker Psychiatric Orientation: alert Testing Laboratory Results 02/16/19 04:34 02/16/19 03:20 PT 18.4 Seconds (9.0-12.0) H 02/16/19 05:19 INR 1.9 (0.9-1.1) H 02/16/19 05:19 APTT 32.5 Seconds (21.0-31.0) H 02/16/19 05:19 Urine Color Yellow 02/16/19 04:20 Urine Appearance Cloudy (Clear) A 02/16/19 04:20 Urine pH 5.0 (4.5-7.5) 02/16/19 04:20 Ur Specific [place] 1.032 (1.000-1.030) H 02/16/19 04:20 Urine Protein Trace (Negative) H 02/16/19 04:20 Urine Glucose (UA) 1+ (Negative) H 02/16/19 04:20 Urine Ketones Negative (Negative) 02/16/19 04:20 Urine Nitrite Negative (Negative) 02/16/19 04:20 Ur Leukocyte Esterase Negative (Negative) 02/16/19 04:20 Urine WBC (Auto) 1-5 /hpf (0-5) 02/16/19 04:20 Urine RBC (Auto) 5-10 /hpf (0-4) H 02/16/19 04:20 U Hyaline Cast (Auto) 1-5 /lpf (0-5) 02/16/19 04:20 U Epithel Cells (Auto) 5-10 /lpf (0-5) H 02/16/19 04:20 Urine Bacteria (Auto) Negative (Negative) 02/16/19 04:20 02/16/19 02/16/19 02/16/19 16:36 11:51 08:23 POC Glucose 156 H 157 H 210 H
--- NOTE | 2019-02-16 20:09 | Fluoroscopy Report ---
FL KUB CLINICAL HISTORY: Cysto/stent COMPARISON STUDY: CT of the abdomen and pelvis February 15, 2019. Renal ultrasound performed earlier tod ay. FLUOROSCOPY TIME: 22 seconds. FLUOROSCOPIC IMAGES: 1. FINDINGS: Single fluoroscopic image demonstrates distal aspect of left ureteral stent which projects over the left aspect of the bladder. Incidental note is made of brachytherapy seeds which project ove r the prostate. IMPRESSION: Single fluoroscopic image demonstrating distal aspect of left ureteral stent projecting over the bladder. Electronically signed by: Peter Britton M.D. 02/16/2019 8:08 PM
--- NOTE | 2019-02-16 20:23 | Anesthesiology Progress Note ---
Date of Service February 16, 2019 Anesthesia Post Procedure Vital Signs Vital Signs: Temp Pulse Pulse Pulse Pulse Resp BP 02/16/19 20:15 36.6 C 60 16 02/16/19 20:05 36.4 C L 60 16 02/16/19 19:56 36.4 C L 61 16 02/16/19 18:15 37.4 C 61 18 02/16/19 16:00 60 02/16/19 14:41 36.5 C 61 16 02/16/19 12:16 36.7 C 62 16 02/16/19 08:00 65 02/16/19 07:28 36.6 C 60 18 02/16/19 06:15 36.6 C 66 20 02/16/19 05:51 60 18 02/16/19 02:57 36.5 C 62 22 179/69 H BP Pulse Ox 02/16/19 20:15 133/77 97 02/16/19 20:05 131/78 99 02/16/19 19:56 135/80 98 02/16/19 18:15 145/79 H 94 02/16/19 16:00 02/16/19 14:41 135/74 95 02/16/19 12:16 129/74 94 02/16/19 08:00 02/16/19 07:28 130/72 95 02/16/19 06:15 128/78 93 02/16/19 05:51 107/59 L 92 02/16/19 02:57 99 Pain Intensity Left Flank: Pain Intensity: 0 Transfer of Care Handoff Completed per policy Notes Mental Status: alert / awake / arousable Patient Amnestic to Procedure: Yes Nausea / Vomiting: adequately controlled Pain: adequately controlled Airway Patency, RR, SpO2: stable & adequate BP & HR: stable & adequate Hydration State: stable & adequate Anesthetic Complications: no major complications apparent
[2019-02-16] MEDS ORDERED: TAMSULOSIN HCL 0.4 MG CAP PO SCH (21:00)
[2019-02-16] MEDS ORDERED: ATORVASTATIN 40 MG TAB PO SCH (21:00)
[2019-02-16] MEDS ORDERED: INSULIN GLARGINE SOLOSTAR 100 UNITS/ML 3 ML PEN SC SCH (21:00)
[2019-02-16] MEDS ORDERED: DOCUSATE SODIUM/SENNA 50/8.6MG TAB PO PRN (22:20)
[2019-02-16] MEDS ORDERED: Nursing to Pharmacy Communication ONE (23:10)
[2019-02-17] MEDS: INSULIN ASPART 100 UNITS/ML 3 ML PEN SC SCH ×4 (00:40→17:48)
[2019-02-17] MEDS: SODIUM CHLORIDE 0.9% 1000ML 1,000 ML IV SCH ×2 (05:14→14:19)
[2019-02-17 07:40] LABS: Basophils # (auto) 0.02 K/uL (0-0.2); Basophils % (auto) 0.3 %; Eosinophils # (auto) 0.09 K/uL (0-0.5); Eosinophils % (auto) 1.2 %; Hematocrit (blood only) 35.7 % (42-52); Hemoglobin 11.4 g/dL (14.0-18.0); Immature Granulocytes # (auto) 0.02 K/uL (0.00-0.02); Immature Granulocytes % (auto) 0.3 %; Lymphocytes # (auto) 0.89 K/uL (1.2-3.4); Lymphocytes % (auto) 11.6 %; Mean Corpuscular Hgb Conc 31.9 g/dL (32-36); Mean Corpuscular Volume 93.2 fL (80-100); Mean Platelet Volume 11.1 fL (7.4-10.4); Monocytes # (auto) 0.72 K/uL (0.11-0.59); Monocytes % (auto) 9.4 %; Neutrophils # (auto) 5.91 K/uL (1.4-6.5); Neutrophils % (auto) 77.2 %; Platelet Count 120 K/uL (130-400); RDW Standard Deviation 51.3 fL (36.4-46.3); Red Blood Count 3.83 M/uL (4.7-6.1); White Blood Count 7.65 K/uL (4.8-10.8)
[2019-02-17 07:44] LABS: Estimated Average Glucose 194 mg/dl; Hemoglobin A1C 8.4 % (4.5-5.6)
[2019-02-17 07:49] LABS: INR 1.7 (0.9-1.1); Partial Thromboplastin Ratio 1.2; Partial Thromboplastin Time 32.8 Seconds (21.0-31.0); Prothrombin Time 16.5 Seconds (9.0-12.0)
[2019-02-17 08:10] LABS: Albumin Globulin Ratio 0.9 (0.9-2); Albumin Level 2.9 gm/dl (3.4-5.0); Bilirubin,Total 0.7 mg/dl (0.2-1); Calcium 7.8 mg/dl (8.5-10.1); Creatinine Clr Calc Pharmacy 88.6 ml/min; Est GFR (African American) 77.8; Est GFR (Non-African American) 67.1; Globulin 3.3 gm/dl (2.5-4.0); Potassium 4.2 mmol/L (3.5-5.1); Total Protein 6.2 gm/dl (6.4-8.2)
--- NOTE | 2019-02-17 08:16 | Anesthesiology Progress Note ---
Date of Service February 17, 2019 Anesthesia Post Procedure Vital Signs Vital Signs: Temp Pulse Pulse Pulse Pulse Resp BP 02/17/19 07:29 60 02/17/19 07:27 37.3 C 60 16 124/72 02/17/19 04:00 36.7 C 59 L 20 123/70 02/17/19 00:07 36.7 C 60 20 128/71 02/16/19 23:55 60 02/16/19 20:49 36.8 C 60 18 122/75 02/16/19 20:25 36.6 C 60 17 131/73 02/16/19 20:15 36.6 C 60 16 133/77 02/16/19 20:05 36.4 C L 60 16 131/78 02/16/19 19:56 36.4 C L 61 16 135/80 02/16/19 18:15 37.4 C 61 18 145/79 H 02/16/19 16:00 60 02/16/19 14:41 36.5 C 61 16 135/74 02/16/19 12:16 36.7 C 62 16 129/74 Pulse Ox 02/17/19 07:29 02/17/19 07:27 92 02/17/19 04:00 92 02/17/19 00:07 96 02/16/19 23:55 02/16/19 20:49 95 02/16/19 20:25 95 02/16/19 20:15 97 02/16/19 20:05 99 02/16/19 19:56 98 02/16/19 18:15 94 02/16/19 16:00 02/16/19 14:41 95 02/16/19 12:16 94 Pain Intensity Left Flank: Pain Intensity: 0 Notes Mental Status: alert / awake / arousable Patient Amnestic to Procedure: Yes Nausea / Vomiting: adequately controlled Pain: adequately controlled Airway Patency, RR, SpO2: stable & adequate BP & HR: stable & adequate Hydration State: stable & adequate Anesthetic Complications: no major complications apparent
[2019-02-17] MEDS ORDERED: MAGNESIUM HYDROXIDE SUSP 30 ML UDC PO ONE (08:31)
[2019-02-17] MEDS ORDERED: PHENAZOPYRIDINE HCL 200 MG TAB PO PRN (08:32)
--- NOTE | 2019-02-17 08:42 | Urology Progress Note ---
Date of Service February 17, 2019 Assessment & Plan (1) Calculus of proximal left ureter: POD#1 s/p left ureteroscopy laser lithotripsy basket stone extraction stent. will remove stent next week in office I dont think he needs antibiotics now. Suggest daily flomax to help with stent pain. Also will take pyridium or azo for burning. I reviewed stone diet. I think his stones were uric acid so he needs to eat less animal protein (all forms fish, chicken, pork, beef) and take less salt. I suggest 2 of his 3 meals per day should be vegetarian. We might consider urinary alkalinization in future. He asks about laxative. I wrote for milk of mag. He asks about psa. I do not recommend psa testing for 3-4 weeks as the urethra instrumentation and his illness will artificially elevate the psa test. His last psa was 0.4 in Sep 2018. He has standing orders for psa in his [facility] chart. Present on Admission?: Yes Subjective Spoke with patient by phone. Feels very sore. His creatinine has normalized. Has a lot of burning with urination. Urine is brown. Still very constipated. Eating and drinking fine. Results & Data Vital Signs (Past 12 Hours) Vital Signs Temp Pulse Pulse Pulse Resp BP Pulse Ox 02/17/19 07:29 60 02/17/19 07:27 37.3 C 60 16 124/72 92 02/17/19 04:00 36.7 C 59 L 20 123/70 92 02/17/19 00:07 36.7 C 60 20 128/71 96 02/16/19 23:55 60 02/16/19 20:49 36.8 C 60 18 122/75 95
[2019-02-17] MEDS ORDERED: INSULIN GLARGINE SOLOSTAR 100 UNITS/ML 3 ML PEN SC SCH (09:00)
[2019-02-17] MEDS: AMLODIPINE BESYLATE 5 MG TAB PO SCH (09:01)
[2019-02-17] MEDS: METOPROLOL SUCC 25MG EXT REL TAB PO SCH (09:01)
[2019-02-17] MEDS: GABAPENTIN 300 MG CAP PO SCH ×2 (09:01→14:17)
[2019-02-17] MEDS ORDERED: LACTULOSE SYRUP 30 GM/45 ML UDP PO STA ×2 (14:05→16:14)
[2019-02-17] MEDS ORDERED: CARBOHYDRATES FOR HYPOGLYCEMIA PO PRN (15:30)
[2019-02-17] MEDS ORDERED: DEXTROSE 50% 50 ML SYRINGE IV PRN (15:30)
[2019-02-17] MEDS ORDERED: GLUCOSE 10 TABS/TUBE PO PRN (15:30)
[2019-02-17] MEDS ORDERED: GLUCOSE 40% GEL 15 GM TUBE PO PRN (15:30)
[2019-02-17] MEDS ORDERED: GLUCAGON FOR INJ 1 MG VIAL IM PRN (15:30)
[2019-02-17] MEDS ORDERED: POLYETHYLENE (MIRALAX) 17 GM PACK PO STA (16:14)
[2019-02-24 11:12] LABS: Component 2 DNR
--- NOTE | 2019-02-26 07:46 | Discharge Summary ---
Date of Service February 17, 2019 Admission HPI Per Admitting Provider Patient is a 63-year-old male with a past medical history including CAD, hypertension, atrial fibrillation on Coumadin, prostate cancer, dyslipidemia, tachybradycardia syndrome, ALISSA, status post CABG x3 and AV block Mobitz type I. He presented to the emergency department initially on 02/14 with left flank pain, underwent a CT scan of abdomen pelvis with contrast which showed an 18 mm proximal left ureteral stone just below the ureteropelvic junction, causing mild to moderate left hydronephrosis. He was discharged on oxycodone 5 mg every 6 hours as needed, to make a follow-up appointment with his urologist Dr. Ramsay, however, his symptoms worsened considerably overnight, and he presents to the emergency department for reassessment again tonight. Principal Diagnosis Calculus of left proximal ureter Discharge Exam The patient is awake, alert and oriented 3, well developed and well nourished, normocephalic and atraumatic\ HEENT--PERRL, EOMI, mucous membranes and oropharynx normal. Neck--supple. No JVD. No bruits. Thyroid normal, trachea midline, no adenopathy. Heart--normal S1 and S2. No murmurs, rubs or gallops. Lungs--clear bilaterally, no respiratory distress, no accessory muscle use. Abdomen--normal bowel sounds and soft. Nontender. Nondistended. Morbidly obese; no CVA tenderness Extremities--no cyanosis or clubbing. No edema. There are good distal pulses b/l. Dermatologic--normal skin turgor, normal color, no abnormal lymph nodes, no rash. Neurologic--cranial nerves II through XII grossly intact. Rheumatologic--normal range of motion. Psychiatric--normal affect. Discharge Data Allergies Allergy/AdvReac Type Severity Reaction Status Date / Time No Known Allergies Allergy Verified 02/20/19 10:50 Consultations 02/16/19 04:59 ED Decision to Admit Stat 02/16/19 06:52 Consult Case Management - Discharge Planning Routine Consult Urology Routine Procedures Performed Operation Date: 02/16/19 12:40 Actual Procedures p Cystoscopy, Left Ureteroscopy, Laser Lithotripsy, Basket Stone Extraction, Stent(Left) - Ann Ramsay MD Ordered Studies 02/16/19 03:02 US renal/blad retro comp Urgent 02/16/19 09:44 FL KUB Routine FL fluoroscopy <1hr Routine Hospital Course (1) Calculus of proximal left ureter: 18 mm proximal left ureteral calculus with mild to moderate left hydronephrosis/failure of outpatient treatment- Follow urine culture and sensitivity. Ceftriaxone 1 g IV daily. Acetaminophen 1000 mg IV every 8 hours as needed mild pain or temperature. Morphine sulfate 4 mg IV every 3 hours as needed severe pain. NSS at 100 mils per hour. Zofran 4 mg IV every 6 hours as needed. Consult his urologist Dr. Ramsay. On day of discharge, Appreciate input from Urology: POD#1 s/p left ureteroscopy laser lithotripsy basket stone extraction stent. will remove stent next week in office I dont think he needs antibiotics now. Suggest daily flomax to help with stent pain. Also will take pyridium or azo for burning. I reviewed stone diet. I think his stones were uric acid so he needs to eat less animal protein (all forms fish, chicken, pork, beef) and take less salt. I suggest 2 of his 3 meals per day should be vegetarian. We might consider urinary alkalinization in future. He asks about laxative. I wrote for milk of mag. He asks about psa. I do not recommend psa testing for 3-4 weeks as the urethra instrumentation and his illness will artificially elevate the psa test. His last psa was 0.4 in Sep 2018. He has standing orders for psa in his [facility] chart. Patient was discharged in stable condition and was agreeable to plan. (2) Hydronephrosis of left kidney: See above. (3) Acute kidney injury: Creatinine upon admission today 1.81. Creatinine on 02/14 was 1.20. Patient was given IV contrast on 02/14. Patient was given Toradol 10 mg IV by the ED perico. He is also on an ARB losartan which will be held. He is also volume depleted due to dehydration. He may be developing ATN. We will place on normal saline at 100 mils per hour. Follow serial BMP and magnesium levels. Avoid any further toxic exposures. Creatinine improved on day of discharge. (4) CAD (coronary artery disease): CAD/hypertension/history AV block Mobitz type I/tachybradycardia syndrome/paroxysmal atrial fibrillation- Hold aspirin and warfarin. Continue amlodipine, metoprolol succinate. Will be holding losartan due to acute kidney injury. On day of discharge, resumed all of his home meds. (5) Atrioventricular block, Mobitz type 1, Wenckebach: See above (6) Tachy-rodrigo syndrome: See above (7) Paroxysmal atrial fibrillation: See above (8) Hypertension: See above (9) Diabetes mellitus: Hold glipizide, metformin and Januvia. Place on Accu-Cheks before meals and at bedtime with NovoLog coverage per scale. On day of discharged, resumed his home meds. (10) ALISSA (obstructive sleep apnea): If required patient will use CPAP at bedtime (11) Dyslipidemia: Continue atorvastatin 40 mg p.o. bedtime (12) Peripheral neuropathy: Continue gabapentin 300 mg p.o. 3 times daily Total Time Total Time Spent Total Time Spent (In Minutes): 32 Total Time Includes: Examination of the Patient, Discharge Planning and Medication Reconciliation Discharge Plan Discharge Items Patient Disposition: Home - Self-Care Reason For Visit: OBSTRUCTING LEFT URETERAL STONE, L HYDRONEPHOSIS Discharge Diagnosis: Left ureteral stone Condition: Fair Discharge Goals: Decrease discomfort Activity: Resume your previous activity Non-emergency contact: Primary Care Provider Call non-emergency contact if: you have any medication questions Follow-up/Referrals: Tequila Eubanks MD [Primary Care Provider] - 02/23/19 10:00 am (Please, follow up at [facility] with Dr. Eubanks on SaturdayFebruary 23 at 10:00 am. *If you need to change this appointment, call the office at [phone].) Diet: Vegetarian (Lacto-Ovo) Diet Comment: decreased animal protein Addtl Provider Instructions: will remove stent next week in office Continue with daily flomax to help with stent pain. Also will take pyridium f or burning. Reviewed stone diet. I think his stones were uric acid so he needs to eat less animal protein (all forms fish, chicken, pork, beef) and take less salt. I suggest 2 of his 3 meals per day should be vegetarian. Do not recommend psa testing for 3-4 weeks as the urethra instrumentation and his illness will artificially elevate the psa test. His last psa was 0.4 in Sep 2018. He has standing orders for psa in his [facility] chart. Prescriptions: New phenazopyridine [Pyridium] 200 mg Tablet 200 mg PO TID Qty: 9 RF: 0 Continued gabapentin 300 mg capsule 300 mg PO TID Qty: 270 RF: 4 losartan 50 mg Tablet 50 mg PO QAM RF: 0 atorvastatin 40 mg Tablet 40 mg PO HS RF: 0 warfarin 10 mg Tablet 10 mg PO 2XWK RF: 0 amlodipine 2.5 mg Tablet 2.5 mg PO QAM RF: 0 aspirin 81 mg Tablet,Delayed Release (Dr/Ec) 81 mg PO QAM RF: 0 tamsulosin 0.4 mg Capsule 0.4 mg PO HS RF: 0 warfarin 5 mg Tablet 5 mg PO 5XWK RF: 0 metoprolol succinate 25 mg Tablet Extended Release 24 Hr 25 mg PO QAM RF: 0 Januvia 100 mg Tablet 100 mg PO HS RF: 0 glipizide [Glucotrol XL] 10 mg tablet extended release 24hr 10 mg PO HS RF: 0 Discontinued oxycodone 5 mg tablet 5 mg PO Q6H PRN (Reason: pain) Qty: 14 RF: 0 No Action metformin 500 mg tablet extended release 24 hr 1,000 mg PO BID Qty: 360 RF: 2 ondansetron HCl [Zofran] 4 mg tablet 4 mg PO Q6H PRN (Reason: Nausea And Vomiting) RF: 0 cefdinir 300 mg capsule 300 mg PO BID Qty: 14 RF: 0 Stand-Alone Forms: [facility] Discharge Orders: Discharge Order (Routine); Ordered 02/17/19 Ordered By: Rian Tripathi Admission Data Admit Date/Time: 02/16/19 05:30 Attending Provider: Rian Tripathi Admit Provider: Remberto Baptiste Primary Care Provider: Tequila Eubanks Other Providers: Remberto Baptiste ; Ann Ramsay Service: Telemetry Medical Other Interventions: Discharge Summary Assessment (RN) Last Done: 02/17/19 14:48 DC Date/Time DO NOT enter until pt leaves facility: 02/17/19 19:08
== END 2019-02-17 19:08 | disposition home or self-care (01) | DRG 660 ==
LOC: ED 02:54 → SUATTDRO 05:30 → 2N 05:30

== ENCOUNTER 2020-08-10 14:17 | Inpatient (IN) ==
[2020-08-10 15:57] LABS: Basophils # (auto) 0.04 K/uL (0-0.2); Basophils % (auto) 0.5 %; Eosinophils # (auto) 0.28 K/uL (0-0.5); Eosinophils % (auto) 3.3 %; Hematocrit (blood only) 40.2 % (42-52); Hemoglobin 13.3 g/dL (14.0-18.0); Immature Granulocytes # (auto) 0.02 K/uL (0.00-0.02); Immature Granulocytes % (auto) 0.2 %; Lymphocytes # (auto) 0.75 K/uL (1.2-3.4); Lymphocytes % (auto) 8.9 %; Mean Corpuscular Hemoglobin 30.4 pg (25-34); Mean Corpuscular Hgb Conc 33.1 g/dL (32-36); Mean Platelet Volume 11.6 fL (7.4-10.4); Monocytes # (auto) 0.72 K/uL (0.11-0.59); Monocytes % (auto) 8.5 %; Neutrophils # (auto) 6.62 K/uL (1.4-6.5); Neutrophils % (auto) 78.6 %; Platelet Count 164 K/uL (130-400); RDW Coefficient of Variation 13.8 % (11.5-14.5); RDW Standard Deviation 46.3 fL (36.4-46.3); Red Blood Count 4.37 M/uL (4.7-6.1); White Blood Count 8.43 K/uL (4.8-10.8)
[2020-08-10 16:18] LABS: INR 2.4 (0.9-1.1); Partial Thromboplastin Ratio 1.6; Partial Thromboplastin Time 43.9 Seconds (21.0-31.0); Prothrombin Time 24.1 Seconds (9.0-12.0)
[2020-08-10 16:26] LABS: BUN Creatinine Ratio 15.3 (10-20); C Reactive Protein 7.2 mg/dl (0-0.29); Calcium 8.9 mg/dl (8.5-10.1); Creatinine Clr Calc Pharmacy 124.4 ml/min; Est GFR (African American) 112.7; Est GFR (Non-African American) 97.2; Potassium 4.1 mmol/L (3.5-5.1)
--- NOTE | 2020-08-10 16:42 | History & Physical Report ---
Date of Service August 10, 2020 Assessment & Plan (1) Diabetic ulcer of right foot: Admission and Anticipated Discharge Date Admission Date: Patient is a diabetic foot ulcer to his right foot. He also has a possible abscess. We will plan to admit him to [facility]. He will be made NPO p MN in preparation for surgery on August 11, 2020. He is on chronic which will be held due to his upcoming procedure. We will also give him 5 mg of vitamin K IV upon arrival to the hospital. We will also obtain a preoperative CBC, BMP, sedimentation rate, CRP, PT/PTT upon arrival to the hospital. We will also repeat his PT/PTT in the a.m. prior to surgery. We will start IV vancomycin and Unasyn for treatment of possible abscess.He is scheduled for an incision and drainage of his right foot abscess with Dr. Parikh on August 11, 2020. We will also perform a rapid Covid test. We will also like him to receive an MRI of his right foot with and without IV contrast for further evaluation of the fluid collection in his foot. We will obtain a preoperative medical clearance and cardiac clearance prior to surgery. His family physician is Dr. Eubanks and his Safety Specialist is Dr. Murillo. He states that he recently had a check up with Dr. Murillo the end of last year and everything was fine. He may be out of bed, weightbearing as tolerated to his right lower extremity with a postop shoe. Recommended ice and elevation as needed for pain and swelling. We will resume his regular diabetic diet and have him nothing by mouth after midnight. All questions were answered, he understands and agrees with the plan. we will continue his home medications. Also will obtain an EKG for pre-op evaluation. History of Present Illness Chief Complaint: right foot abscess Primary Care Provider: LAURA Prabhakar Patient is a 64-year-old male who is here today for evaluation of her right foot wound. He has had redness, swelling and pain for the last 7-10 days. He is a type II diabetic. He also has cardiovascular disease and is on chronic Coumadin for atrial fibrillation. He has a chronic history of a plantar fifth metatarsal callus which occasionally gets aggravated. He has had them partially removed in the past. He denies any fevers but states he does occasionally get chills. He was seen in the wound clinic 2 days ago and his callus was again debrided. There is some mild drainage and due to increased swelling and warmth a CT scan was ordered due to concern for abscess. The CT scan was obtained and resulted and showed probable abscess. He was referred to our office for further orthopedic evaluation and to discuss incision and drainage. He has not had bro abbie on his right foot in the past. He does have some neuropathy and numbness in both of his feet which has been chronic. Denies any known injury. He was seen today by Dr. Parikh and was recommended for an incision and drainage. He will be a directly admitted to the hospital from the emergency department went bed becomes available. Allergies Allergy/AdvReac Type Severity Reaction Status Date / Time No Known Allergies Allergy Verified 07/22/20 13:23 Home Medications Medication Instructions Recorded Confirmed Type aspirin 81 mg PO QAM 06/26/18 08/09/20 History losartan 50 mg PO QAM 06/26/18 08/09/20 History metoprolol succinate 25 mg PO QAM 06/26/18 08/09/20 History hydrochlorothiazide 25 mg tablet 25 mg PO DAILY 06/23/19 08/09/20 History meclizine 25 mg tablet 25 mg PO TID PRN #30 tab 06/24/19 08/09/20 Rx sildenafil 25 mg tablet 25 mg PO DAILY PRN 09/08/19 08/09/20 History Carnivora 250 mcg PO DAILY 01/26/20 08/09/20 History Nattokinase Plus 1 tab PO DAILY 01/26/20 08/09/20 History Onivase Forte 1 tab PO BID 01/26/20 08/09/20 History Tolergestaid 2 tab PO DAILY 01/26/20 08/09/20 History -Telometry 1 tab PO DAILY 01/26/20 08/09/20 History coenzyme Q10 200 mg capsule 200 mg PO DAILY 01/26/20 08/09/20 History atorvastatin 40 mg tablet 40 mg PO HS #90 tab 02/08/20 08/09/20 Rx tamsulosin 0.4 mg capsule 0.4 mg PO .QOD cap 02/18/20 08/09/20 History warfarin 5 mg tablet 5 - 10 mg PO UD tab 02/23/20 08/09/20 History indomethacin 25 mg capsule 25 mg PO BID PRN 04/08/20 08/09/20 History blood sugar diagnostic #300 ea 06/23/20 08/09/20 Rx metformin 500 mg tablet,extended 500 mg PO BID tab 07/11/20 08/09/20 History release 24 hr Past Med/Surg History Medical History CAD S/P percutaneous coronary angioplasty Diabetes mellitus Diabetic ulcer of left foot Diabetic ulcer of right foot Diverticulosis of colon Hydronephrosis of left kidney Intracanalicular fibroadenoma Penile curvature, acquired Peripheral neuropathy Prostate cancer (10/14/15) Sciatica Ureterolithiasis Surgical History H/O prostate biopsy H/O shoulder surgery History of hip replacement Pacemaker S/P appendectomy S/P CABG x 3 S/P TKR (total knee replacement) (11/04/13) Family History Unknown Prostate cancer self Father Diabetes Myocardial infarction Denies family history of Ovarian cancer Breast cancer Colorectal cancer Social History Smoking Status: Never smoker Second Hand Exposure: No; Hx Alcohol Use: Yes Alcohol Intake Frequency: Monthly or Less Hx Substance Use: No Preferred Language: Bahraini Communication Ability: Effective Visual Impairment: Limited Hearing Ability: Normal [employer] Required: No Beliefs That Will Affect Care: None marital status: / Current Living Situation: Alone current occupational status: retired How many Children do You have: 2 How many Children do You have Comment: local and able to assist as needed Feels Safe at Home: Yes Dental Care, Regularly: Yes Seatbelt Use: sometimes Assistive Devices: Glasses Review of Systems Review of Systems: All systems reviewed & are unremarkable except as noted in HPI & below Physical Exam Physical Exam: Vital signs: Temperature: 36.5, oxygenation on room air: 100%, heart rate: 70 bpm, blood pressure: 115/70 Height: 181 cm Weight: 101 kg Constitutional: WD/WN, vitals as above average body habitus; no acute distress, no altered mental status and no language barrier Eyes: PERRL, conjunctivae normal, anicteric sclerae EOM intact bilaterally; no conjunctival abnormality ENMT: external ear and nose normal, oropharynx normal Mouth: no dentures, no chipped teeth and no loose teeth Neck: trachea midline, no thyromegaly normal visual inspection Respiratory: normal respiratory effort, lungs clear to auscultation Auscultation: no crackles, no rales, no rhonchi and no wheezes Cardiovascular: RRR, no murmur, no edema Heart Sounds: normal S1 and normal S2 Palpation: normal PMI Vessels: posterior tibial pulses present and dorsalis pedis pulses present Extremities: normal capillary refill; no calf tenderness Chest (Breasts): Chest: normal inspection of chest Gastrointestinal (Abdomen): normal bowel sounds, soft, nontender, no hepatosplenomegaly Musculoskeletal: Exam of his right foot: He has swelling around the fifth metatarsal region. It is tender to palpation. He has some plantar keratosis appears to be superficial, mildly debrided. Callus is partially removed and he did have bleeding skin underneath. He has claw toe deformities. Right forefoot. Sensation grossly intact. Mild swelling and erythema noted on the dorsolateral aspect of his right foot. No evidence of a fluctuant area palpated. No pain with movement of the metatarsophalangeal joints and the remainder of the foot is nontender. He is a superficial excoriation for more the plantar keratosis was removed down to what appears to be normal skin without any destructive ulceration present. Results & Data Results & Data ([facility]) Vital Signs (Past 12 Hours) Vital Signs Temp Pulse Resp BP Pulse Ox 08/10/20 14:32 36.6 C 70 20 140/84 99 Laboratory Results 08/10/20 08/10/20 08/10/20 Range/Units 15:44 15:44 15:44 WBC (4.8-10.8) K/uL RBC (4.7-6.1) M/uL Hgb (14.0-18.0) g/dL Hct (42-52) % MCV (80-100) fL MCH (25-34) pg MCHC (32-36) g/dL RDW Std Deviation (36.4-46.3) fL RDW Coeff of Suzy (11.5-14.5) % Plt Count (130-400) K/uL MPV (7.4-10.4) fL Immature Gran % (Auto) % Neut % (Auto) % Lymph % (Auto) % [place] % (Auto) % Eos % (Auto) % Baso % (Auto) % Neut # (Auto) (1.4-6.5) K/uL Lymph # (Auto) (1.2-3.4) K/uL [place] # (Auto) (0.11-0.59) K/uL Eos # (Auto) (0-0.5) K/uL Baso # (Auto) (0-0.2) K/uL Immature Gran # (Auto) (0.00-0.02) K/uL ESR (0-14) mm/hr PT 24.1 H (9.0-12.0) Seconds INR 2.4 H (0.9-1.1) APTT 43.9 H (21.0-31.0) Seconds PTT Ratio 1.6 Sodium 136 (136-145) mmol/L Potassium 4.1 (3.5-5.1) mmol/L Chloride 104 (98-107) mmol/L Carbon Dioxide 29 (21-32) mmol/L Anion Gap 3.0 (3-11) BUN 11 (7-18) mg/dl Creatinine 0.72 (0.6-1.4) mg/dl Est Cr Clr Drug Dosing 124.4 ml/min Est GFR ( Amer) 112.7 Est GFR (Non-Af Amer) 97.2 BUN/Creatinine Ratio 15.3 (10-20) Glucose 122 H (70-99) mg/dl Calcium 8.9 (8.5-10.1) mg/dl C-Reactive Protein 7.20 H (0-0.29) mg/dl SARS-CoV-2, RNA, NAAT NEGATIVE (NEGATIVE) 08/10/20 08/10/20 Range/Units 15:44 15:44 WBC 8.43 (4.8-10.8) K/uL RBC 4.37 L (4.7-6.1) M/uL Hgb 13.3 L (14.0-18.0) g/dL Hct 40.2 L (42-52) % MCV 92.0 (80-100) fL MCH 30.4 (25-34) pg MCHC 33.1 (32-36) g/dL RDW Std Deviation 46.3 (36.4-46.3) fL RDW Coeff of Suzy 13.8 (11.5-14.5) % Plt Count 164 (130-400) K/uL MPV 11.6 H (7.4-10.4) fL Immature Gran % (Auto) 0.2 % Neut % (Auto) 78.6 % Lymph % (Auto) 8.9 % [place] % (Auto) 8.5 % Eos % (Auto) 3.3 % Baso % (Auto) 0.5 % Neut # (Auto) 6.62 H (1.4-6.5) K/uL Lymph # (Auto) 0.75 L (1.2-3.4) K/uL [place] # (Auto) 0.72 H (0.11-0.59) K/uL Eos # (Auto) 0.28 (0-0.5) K/uL Baso # (Auto) 0.04 (0-0.2) K/uL Immature Gran # (Auto) 0.02 (0.00-0.02) K/uL ESR 36 H (0-14) mm/hr PT (9.0-12.0) Seconds INR (0.9-1.1) APTT (21.0-31.0) Seconds PTT Ratio Sodium (136-145) mmol/L Potassium (3.5-5.1) mmol/L Chloride (98-107) mmol/L Carbon Dioxide (21-32) mmol/L Anion Gap (3-11) BUN (7-18) mg/dl Creatinine (0.6-1.4) mg/dl Est Cr Clr Drug Dosing ml/min Est GFR ( Amer) Est GFR (Non-Af Amer) BUN/Creatinine Ratio (10-20) Glucose (70-99) mg/dl Calcium (8.5-10.1) mg/dl C-Reactive Protein (0-0.29) mg/dl SARS-CoV-2, RNA, NAAT (NEGATIVE) Diagnostic Findings 3 views of his right foot show no evidence of osteomyelitis. No arthritis or fracture. Deformities of toes are noted. There is no gas and soft tissue. No foreign material. CT scan from August 09, 2020 shows suspicion for plantar lateral abscess at the level of the fifth metatarsophalangeal joint. Report is noted. MRI of the right foot with and without IV contrast: Pending
[2020-08-10] MEDS ORDERED: PHYTONADIONE 5 MG in SODIUM CHLORIDE 0.9% 50 ML IV ONE (16:54)
[2020-08-10] MEDS ORDERED: MECLIZINE HCL 25 MG TAB PO PRN (19:20)
[2020-08-10] MEDS ORDERED: INDOMETHACIN 25 MG CAP PO PRN (19:22)
[2020-08-10] MEDS ORDERED: VANCOMYCIN CONSULT ACTIVE PRN (19:32)
[2020-08-10] MEDS ORDERED: VANCOMYCIN HCL 2,500 MG in SODIUM CHLORIDE 0.9% 500 ML IV ONE (20:00)
[2020-08-10] MEDS: AMPICILLIN/SULBACTAM SOD 1,500 MG in 0.9 % SODIUM CHLORIDE 100 ML IV SCH (20:52)
[2020-08-10] MEDS: TAMSULOSIN HCL 0.4 MG CAP PO SCH (20:53)
[2020-08-10] MEDS ORDERED: ATORVASTATIN 40 MG TAB PO SCH (21:00)
[2020-08-11] MEDS: AMPICILLIN/SULBACTAM SOD 1,500 MG in 0.9 % SODIUM CHLORIDE 100 ML IV SCH ×4 (02:33→20:18)
[2020-08-11] MEDS ORDERED: PHARMACY GLYCEMIC MGMT CONSULT PRN (03:25)
[2020-08-11] MEDS ORDERED: GLUCAGON FOR INJ 1 MG VIAL SQ PRN (03:45)
[2020-08-11] MEDS ORDERED: GLUCOSE 40% GEL 15 GM TUBE PO PRN (03:45)
[2020-08-11] MEDS ORDERED: CARBOHYDRATES FOR HYPOGLYCEMIA PO PRN (03:45)
[2020-08-11] MEDS ORDERED: DEXTROSE 50% 50 ML SYRINGE IV PRN (03:45)
[2020-08-11] MEDS ORDERED: GLUCOSE 10 TABS/TUBE PO PRN (03:45)
[2020-08-11] MEDS: VANCOMYCIN HCL 1,500 MG in SODIUM CHLORIDE 0.9% 500 ML IV SCH ×4 (06:36→21:01)
[2020-08-11] MEDS: INSULIN ASPART 100 UNITS/ML 3 ML PEN SC SCH ×4 (06:38→20:43)
[2020-08-11 07:26] LABS: INR 1.5 (0.9-1.1); Partial Thromboplastin Ratio 1.2; Partial Thromboplastin Time 33.8 Seconds (21.0-31.0); Prothrombin Time 15.3 Seconds (9.0-12.0)
[2020-08-11] MEDS: LOSARTAN POTASSIUM 50 MG TAB PO SCH (07:30)
[2020-08-11] MEDS ORDERED: hydroCHLOROthiazide 25 MG TAB PO SCH (09:00)
[2020-08-11] MEDS ORDERED: METOPROLOL SUCC 25MG EXT REL TAB PO SCH (09:00)
[2020-08-11] MEDS ORDERED: ASPIRIN 81 MG ECTAB PO SCH (09:00)
--- NOTE | 2020-08-11 09:21 | Pharmacy Report ---
Pharmacy Abx Dose Short Note - Date of Service August 11, 2020 - Assessment & Plan Assessment 64 year old admitted with possible diabetic foot infection. Presenting with redness, swelling over last 10 days. Follows wound clinic and had a CT done which revealed probable abscess. Planned I&D today of area. Started on vancomycin/unasyn Plan Vancomycin * Received loading dose of vancomycin 2500 mg x 1 last evening (~25 mg/kg/dose) * Started on vancomycin 1500 mg (~15 mg/kg) iv q 8 hrs to achieve an estimated trough of ~15 mcg/ml * Estimated kinetics: t1/2<8 hrs, ke~0.107, CrCl >100 * Plan to order trough tomorrow 08/12 to ensure therapeutic Pharmacy will continue to follow and will adjust dose/frequency as necessary. Thank you.
[2020-08-11 09:41] LABS: Creatinine Clr Calc Pharmacy 124.1 ml/min; Est GFR (African American) 112.7; Est GFR (Non-African American) 97.2
[2020-08-11] MEDS ORDERED: GADOBUTROL 65ML VIAL IV ONE (10:29)
--- NOTE | 2020-08-11 10:46 | Magnetic Resonance Report ---
MR foot RT wo/w con HISTORY: 64 years-old Male abscess right foot acute pain and swelling of the right forefoot with pos sible abscess. COMPARISON: Right foot radiographs 08/10/2020, CT right foot 08/09/2020 TECHNIQUE: Multiplanar multisequence MRI of the right foot was obtained both with and without the use of 10.0 mL Gadavist FINDINGS: There is diffuse atrophy of the intrinsic musculature suggestive of chronic denervation changes. Mode rate diffuse subcutaneous and deep tissue edema. The imaged tendons and ligaments appear unremarkable . No evidence of intermetatarsal bursitis or perineural fibrosis (Snider neuroma). The interosseous b and of the Lisfranc ligament is identified and appears intact. There is mostly mild multifocal osteoa rthritis of the forefoot. No acute fracture, dislocation or osseous erosions. There is no significant bone marrow edema. There is a soft tissue ulcer noted involving the lateral forefoot superficial to the fifth MTP joints . Peripherally enhancing fluid collection within this distribution redemonstrated which measures appr oximately 1.5 x 0.9 x 2.3 cm, similar in size to the study from 08/09/2020. The deep portion of this co llection abuts the periosteum of the fifth metatarsal head. There is adjacent periosteal edema. No ad ditional collections are identified. IMPRESSION: 1. Soft tissue ulcer of the lateral forefoot superficial to the fifth MTP joint redemonstrated with u nchanged peripherally enhancing fluid collection measuring up to 2.3 cm suggestive of abscess. 2. Likely reactive periosteal edema adjacent to the fifth metatarsal head adjacent to the aforementio dalila abscess. No osseous erosions or marrow signal abnormalities identified to suggest osteomyelitis a t this time. 3. Diffuse subcutaneous edema suggestive of cellulitis. 4. Atrophy of the intrinsic musculature of the forefoot, likely secondary to chronic denervation mccormack ges. ACT 112: Negative or not required by law. The above report was generated using voice recognition software. It may contain grammatical, syntax o r spelling errors. Electronically signed by: Delmar Muñiz M.D. 08/11/2020 10:45 AM
[2020-08-11] MEDS ORDERED: LIDOCAINE HCL 2% 2 ML VIAL/AMP(20MG/ML) INFIL ONE (11:12)
[2020-08-11] MEDS ORDERED: PROPOFOL IV EMULSION 10 MG/ML 20 ML VIAL IV ONE (11:12)
[2020-08-11] MEDS ORDERED: fentaNYL citrate 100 MCG/2 ML VIAL ONE (11:13)
[2020-08-11] MEDS ORDERED: MIDAZOLAM HCL 1 MG/ML 2ML VIAL ONE (11:13)
--- NOTE | 2020-08-11 11:17 | Hospitalist Consultation ---
Date of Consultation August 11, 2020 Assessment & Plan (1) Abscess of foot: Right foot Scheduled for right foot abscess I&D today Patient takes Coumadin - Will defer to surgery on appropriate INR for OR - patient was given vitamin K last night Currently on Unasyn and vancomycin - can probably discontinue Unasyn at this point as culture is growing MRSA but may want to hold off until intraoperative cultures are resulted. May want an infectious disease consult to determine length of treatment DVT proph per primary Patient has history of CAD, atrial fibrillation, pacemaker but no history of heart failure. Electrolytes are wnl. Blood sugars are controlled - last A1c was 7. Ventricular paced rhythm on EKG, no ischemic symptoms. Patient is acceptable risk for surgery. (2) Gout: Continue prn indomethacin (3) Pacemaker: noted (4) Diabetes mellitus: Hold home metformin Pharmacy glycemic consult (5) Hypertension: continue metoprolol, losartan, hctz (6) Dyslipidemia: Continue statin (7) CAD (coronary artery disease): Continue baby asa when ok with surgery, continue statin, beta vivian, losartan Supervising Physician Co-Signing Physician Notes chart reviewed and case d/w S Lilian SANCHEZ. As above History of Present Illness Attending Physician: Moshe Parikh MD History of Present Illness Mr. Fitzgerald is to have an abscess in his right foot drained. He has some mild pain in that foot but otherwise has no complaints and is feeling well. Allergies Allergy/AdvReac Type Severity Reaction Status Date / Time No Known Allergies Allergy Verified 08/10/20 18:19 Home Medications Medication Instructions Recorded Confirmed Type aspirin 81 mg PO QAM 06/26/18 08/10/20 History losartan 50 mg PO QAM 06/26/18 08/10/20 History metoprolol succinate 25 mg PO QAM 06/26/18 08/10/20 History hydrochlorothiazide 25 mg tablet 25 mg PO DAILY 06/23/19 08/10/20 History meclizine 25 mg tablet 25 mg PO TID PRN #30 tab 06/24/19 08/10/20 Rx sildenafil 25 mg tablet 25 mg PO DAILY PRN 09/08/19 08/10/20 History Carnivora 250 mcg PO BID 01/26/20 08/10/20 History Nattokinase Plus 1 tab PO DAILY 01/26/20 08/10/20 History coenzyme Q10 200 mg capsule 200 mg PO DAILY 01/26/20 08/10/20 History atorvastatin 40 mg tablet 40 mg PO HS #90 tab 02/08/20 08/10/20 Rx tamsulosin 0.4 mg capsule 0.4 mg PO .QOD cap 02/18/20 08/10/20 History warfarin 5 mg tablet 5 - 10 mg PO UD tab 02/23/20 08/10/20 History indomethacin 25 mg capsule 50 mg PO BID PRN 04/08/20 08/10/20 History metformin 500 mg tablet,extended 500 mg PO BID tab 07/11/20 08/10/20 History release 24 hr calcium gluconate 500 mg PO DAILY 08/10/20 08/10/20 History Patient History Medical History (Updated 08/11/20 @ 13:00 by LAURA Dorman) CAD S/P percutaneous coronary angioplasty Diabetes mellitus Diabetic ulcer of left foot Diabetic ulcer of right foot Diverticulosis of colon Hydronephrosis of left kidney Intracanalicular fibroadenoma ALISSA (obstructive sleep apnea) Paroxysmal atrial fibrillation Peripheral neuropathy Prostate cancer (10/14/15) Sciatica Tachy-rodrigo syndrome Ureterolithiasis Surgical History (Updated 08/11/20 @ 11:45 by Jamar Eddy MD) H/O prostate biopsy H/O shoulder surgery History of hip replacement Pacemaker S/P appendectomy S/P CABG x 3 S/P TKR (total knee replacement) (11/04/13) Status post laser lithotripsy of ureteral calculus 02/2019. LMA #5. No issues. Family History Unknown Prostate cancer self Father Diabetes Myocardial infarction Denies family history of Ovarian cancer Breast cancer Colorectal cancer Social History Smoking Status: Never smoker Second Hand Exposure: No; Do You Dip or Chew Tobacco: No; Hx Alcohol Use: Yes Alcohol type: beer and wine Alcohol Intake Frequency: Arnie hly or Less Hx Substance Use: No Preferred Language: Pakistani Communication Ability: Effective Visual Impairment: Limited Hearing Ability: Normal Cnmt Required: No Beliefs That Will Affect Care: None marital status: / Current Living Situation: Alone current occupational status: retired How many Children do You have: 2 How many Children do You have Comment: local and able to assist as needed Other Information That Helps Us Care for You: No Feels Safe at Home: Yes Safety Concerns: Feels Safe At This Time Dental Care, Regularly: Yes Seatbelt Use: sometimes Assistive Devices: None Review of Systems Constitutional: no fever, no chills and no body aches Respiratory: no cough and no dyspnea Cardiovascular: no chest pain and no palpitations Gastrointestinal: no abdominal pain and no early satiety Genitourinary: no dysuria and no urinary hesitancy Musculoskeletal: no back pain and no joint pain Integumentary: no rash Physical Exam Physical Exam: General: no distress Eyes: normal inspection, PERLL Respiratory: chest non tender, clear to auscultation, normal breath sounds, no respiratory distress, no accessory muscle use Cardiac: regular rate and rhythm, no rub or gallop, no murmur, no edema, no jvd GI/: active bowel sounds, no abd pain or tenderness, soft, non distended Extremities: normal range of motion, normal strength, non tender Neuro/Psych: alert and oriented x 3, normal mood and affect Skin: normal color, dry Results & Data Results & Data ([facility]) Vital Signs (Past 12 Hours) Vital Signs Temp Pulse Resp BP BP Pulse Ox 08/11/20 07:01 37.0 C 60 24 125/77 95 08/10/20 23:26 36.7 C 60 18 143/75 H 97 PG Care Time/CCT Total # of Minutes Spent Total Time Spent with Patient: Total time spent is greater than 50% in coordination of care (as documented) at patient's floor/unit and/or counseling patient: Coding Level of Care Code 39386 Inpt Consult Level 4 Diagnoses Abscess of foot L02.619 Gout M10.9 Pacemaker Z95.0 Diabetes mellitus E11.42 Diabetes mellitus complication detail: with polyneuropathy Diabetes mellitus complication status: with neurologic complications Diabetes mellitus custodial insulin use: without custodial use Diabetes mellitus type: type 2 Hypertension I10 Hypertension type: essential hypertension Dyslipidemia E78.5 CAD (coronary artery disease) I25.10 (1) Diabetes mellitus Diabetes mellitus complication detail: with polyneuropathy Diabetes mellitus complication status: with neurologic complications Diabetes mellitus meterman insulin use: without meterman use Diabetes mellitus type: type 2 Qualified Code(s): E11.42 - Type 2 diabetes mellitus with diabetic polyneuropathy (2) Hypertension Hypertension type: essential hypertension Qualified Code(s): I10 - Essential (primary) hypertension
--- NOTE | 2020-08-11 11:38 | Anesthesiology Consultation ---
Date of Service August 11, 2020 Assessment & Plan (1) Encounter for pre-operative examination: Chart Review Chart Review: Acceptable Risk for Surgery and Patient NOT seen in Pre Admission Testing Consults Requested none History Surgery Operation Date: 08/11/20 09:05 Proposed Procedures p Right Foot Abscess Incision and Drainage - Moshe Parikh MD Height/Weight Height: 6 ft Weight: 100.9 kg Allergies Allergy/AdvReac Type Severity Reaction Status Date / Time No Known Allergies Allergy Verified 08/10/20 18:19 Medications Home Medications Medication Instructions Recorded Confirmed Last Taken aspirin 81 mg PO QAM 06/26/18 08/10/20 07/01/20 losartan 50 mg PO QAM 06/26/18 08/10/20 07/01/20 metoprolol succinate 25 mg PO QAM 06/26/18 08/10/20 07/01/20 hydrochlorothiazide 25 mg tablet 25 mg PO DAILY 06/23/19 08/10/20 07/01/20 meclizine 25 mg tablet 25 mg PO TID PRN #30 tab 06/24/19 08/10/20 07/01/20 sildenafil 25 mg tablet 25 mg PO DAILY PRN 09/08/19 08/10/20 Unknown Carnivora 250 mcg PO BID 01/26/20 08/10/20 07/01/20 Nattokinase Plus 1 tab PO DAILY 01/26/20 08/10/20 07/01/20 coenzyme Q10 200 mg capsule 200 mg PO DAILY 01/26/20 08/10/20 07/01/20 atorvastatin 40 mg tablet 40 mg PO HS #90 tab 02/08/20 08/10/20 06/30/20 tamsulosin 0.4 mg capsule 0.4 mg PO .QOD cap 02/18/20 08/10/20 Unknown warfarin 5 mg tablet 5 - 10 mg PO UD tab 02/23/20 08/10/20 06/30/20 indomethacin 25 mg capsule 50 mg PO BID PRN 04/08/20 08/10/20 Unknown metformin 500 mg tablet,extended 500 mg PO BID tab 07/11/20 08/10/20 Unknown release 24 hr calcium gluconate 500 mg PO DAILY 08/10/20 08/10/20 Unknown Active Medications Generic Name Dose Route Start Last Admin Trade Name Freq PRN Reason Stop Dose Admin Aspirin 81 mg 08/11/20 09:00 08/11/20 07:31 Aspirin 81 Mg Ectab PO 09/10/20 08:59 Not Given QAM JOSEP Atorvastatin Calcium 40 mg 08/10/20 21:00 08/10/20 20:53 Atorvastatin 40 Mg Tab PO 09/09/20 20:59 40 mg HS JOSEP Administration Hydrochlorothiazide 25 mg 08/11/20 09:00 08/11/20 07:30 Hydrochlorothiazide 25 Mg Tab PO 09/10/20 08:59 25 mg DAILY JOSEP Administration Ampicillin Sodium/Sulbactam 104 mls @ 200 mls/hr 08/10/20 20:00 08/11/20 10:04 Sodium 1,500 mg/ Sodium IV 08/17/20 19:59 Infused Chloride Q6H JOSEP Infusion Protocol Vancomycin HCl 1,500 mg/ 530 mls @ 200 mls/hr 08/11/20 06:00 08/11/20 11:37 Sodium Chloride IV 08/18/20 05:59 Infused Q8H JOSEP Infusion Indomethacin 25 mg 08/10/20 19:22 08/11/20 07:30 Indomethacin 25 Mg Cap PO 09/09/20 19:21 25 mg BID PRN Administration Pain Insulin Aspart 0 units 08/11/20 06:00 08/11/20 06:38 Insulin Aspart 100 Units/Ml 3 Ml Pen SC 09/10/20 05:59 Not Given Q6 JOSEP Losartan Potassium 50 mg 08/11/20 09:00 08/11/20 07:30 Losartan Potassium 50 Mg Tab PO 09/10/20 08:59 50 mg QAM JOSEP Administration Metoprolol Succinate 25 mg 08/11/20 09:00 08/11/20 07:32 Metoprolol Succ 25mg Ext Rel Tab PO 09/10/20 08:59 Not Given QAM JOSEP Tamsulosin HCl 0.4 mg 08/10/20 21:00 08/10/20 20:53 Tamsulosin Hcl 0.4 Mg Cap PO 09/09/20 20:59 0.4 mg HS JOSEP Administration NPO Date Last Intake of Fluids: 08/10/20 Time Last Intake of Fluids: 23:59 Date Last Intake of Solids: 08/10/20 Time Last Intake of Solids: 23:59 Past Medical History Medical History (Updated 08/11/20 @ 11:42 by Jamar Eddy MD) CAD S/P percutaneous coronary angioplasty Diabetes mellitus Diabetic ulcer of left foot Diabetic ulcer of right foot Diverticulosis of colon Hydronephrosis of left kidney Intracanalicular fibroadenoma ALISSA (obstructive sleep apnea) Paroxysmal atrial fibrillation Peripheral neuropathy Prostate cancer (10/14/15) Sciatica Tachy-rodrigo syndrome Ureterolithiasis Exercise / Class Metabolic Activity II 4-5 Yardwork/Stairs/Walk up hill Past Family History Family History Unknown Prostate cancer self Father Diabetes Myocardial infarction Denies family history of Ovarian cancer Breast cancer Colorectal cancer Past Surgical History Surgical History (Updated 08/11/20 @ 11:45 by Jamar Eddy MD) H/O prostate biopsy H/O shoulder surgery History of hip replacement Pacemaker S/P appendectomy S/P CABG x 3 S/P TKR (total knee replacement) (11/04/13) Status post laser lithotripsy of ureteral calculus 02/2019. LMA #5. No issues. Past Anesthesia History No Hx of Anesthesia Complications and No Family Hx of Anesthesia Complications History of PONV No Hx of PONV and No Hx of Motion Sickness Social History Smoking Status: Never smoker Do You Dip or Chew Tobacco: No Hx Alcohol Use: Yes Alcohol type: beer and wine alcohol intake frequency: a few times a month Hx Substance Use: No substance use type: does not use Physical Exam Vital Signs Last Vital Signs Temp 36.7 C 08/11/20 11:47 Pulse 60 08/11/20 11:47 Resp 20 08/11/20 11:47 BP 138/80 08/11/20 11:47 Pulse Ox 97 08/11/20 11:47 Testing Laboratory Results 08/10/20 15:44 08/11/20 07:01 PT 15.3 Seconds (9.0-12.0) H 08/11/20 06:56 INR 1.5 (0.9-1.1) H 08/11/20 06:56 APTT 33.8 Seconds (21.0-31.0) H 08/11/20 06:56 08/11/20 08/11/20 08/11/20 11:43 06:06 00:22 POC Glucose 127 H 127 H 104 H Electrocardiogram Date: 08/10/20 Ventricular-paced rhythm Abnormal ECG When compared with ECG of 19-FEB-2019 10:32, Vent. rate has increased BY 2 BPM Echocardiogram Echo 12/2017: EF 55% stress echo neg for ischemia. rate controlled a fib with V paced QRS.
[2020-08-11] MEDS ORDERED: BUPIVACAINE 0.5 % 5 MG/1 ML MPF 30ML VIAL ONE (12:08)
--- NOTE | 2020-08-11 12:15 | History & Physical Bridge Note ---
Date of Service August 11, 2020 History & Physical Bridge Note I have examined the patient, reviewed the History & Physical and in the interval since the performance of the History & Physical I have noted the following changes of clinical significance: no changes noted
--- NOTE | 2020-08-11 13:17 | Operative Report ---
Post Operative Report Pre & Post Diagnosis Operation Date: 08/11/20 09:05 Pre-Op Diagnosis: Right Foot Abscess secondary to diabetic foot ulcer and intractable plantar keratosis Post-Op Diagnosis: Right Foot Abscess secondary to diabetic foot ulceration and intractable plantar keratosis, possible infectious reactive bursitis I identified the patient and participated in the time-out.: Yes Procedure Operation Date: 08/11/20 09:05 Actual Procedures p Right Foot Abscess Incision and Drainage(Right) - Moshe Parikh MD Surgeon Moshe Parikh MD Glued Wood Tester Ann Dixon no resident or fellow available Estimated Blood Loss 5 Findings Consistent with Post-Op Diagnosis Specimens Reactive bursa, routine culture Drains Iodoform gauze Anesthesia Type General Complications none Disposition Accompanied Patient To Recovery: No Disposition: Recovery Room Indications Patient 64. He is diabetic. He has the week long history of increased right foot pain and swelling. He has an intractable plantar keratosis over the fifth metatarsophalangeal joint. There is swelling and tenderness in this area. Physical exam MRI and CT scan are consistent with possible abscess. Superficial culture has grown MRSA. There is no imaging evidence of osteomyelitis. He was not septic. Description of Procedure Informed consent obtained. Patient identified. He identified the operative site as the right foot. I marked with my initials. A preoperative surgical timeout was performed. A preop dose of IV antibiotics was given. He was taken to the operating room positioned supine on the operating room table with a tourniquet on the right calf and a bump under the right hip. The leg was prescrubbed and then prepped and draped with Betadine in the usual sterile fashion. DVT prophylaxis with mechanical devices. He is on the Coumadin preoperatively and this is been reversed to an INR of 1.5. Medical evaluation is also been obtained. The exam showed fullness and swelling as well as some erythema mostly on the plantar aspect of the fifth metatarsal phalangeal joint. There is doughy edema and some erythema on the dorsal lateral aspect of the forefoot. He has good movement of ankle and subtalar joint. Preoperatively there was no pain with movement of the fifth metatarsophalangeal joint. Silfverskiold test was negative. The limb was exsanguinated with gravity. Tourniquet inflated to 225 mmHg. A hemostat was introduced into the plantar ulceration. This was the base of the intractable plantar keratosis which had been debrided in the wound clinic. There is an area centrally which looked like some hemorrhage and beefy granulation tissue. The hemostat entered fairly easily and communicated with the cavity I which turned out to be the abscess/reactive bursitis area. Some serous fluid came out very minimal. No purulence. I then went ahead and made a 3 to 4 cm lateral incision at the junction of the plantar and smoother foot skin. I bluntly dissected through the subcutaneous tissues. I identified the fifth metatarsophalangeal joint capsule and then went plantar to this and easily entered a cavity about 2 cm in diameter. Again there is no purulence but there was some very scant serous fluid present. There was some extra tissue present there which could have been a reactive bursa. This was debrided with scissors and sent for specimen. A culture was obtained. The area was thoroughly irrigated with 500 cc of sterile normal saline. The intractable plantar keratosis was further debrided sharply with a knife. The cavity was debrided with a rongeur. The sinus/ulcer was sharply debrided with a knife. The lesion was packed with quarter inch iodoform gauze which was brought out through the ulceration. The end surgical incision was closed with interrupted 3-0 nylon sutures taking care to not catch the iodoform. Prior to this the tourniquet was let down and meticulous hemostasis was achieved with minimal bleeding. There was bleeding present but no arterial bleeders were identified. The cavity was like it mentioned about 2 cm in size big enough to stick a fin gertip then and was basically between the subcutaneous tissues and the plantar capsule of the fifth metatarsal phalangeal joint which appeared to be palpably and visibly intact. The leg was cleaned with wet and dry sponges Xeroform 4 x 4's ABD fluffs between the toes and a postop shoe were applied. Patient awakened from anesthesia without difficulty and taken to the recovery room in stable condition. Specimens were as mentioned above. Counts were correct. Blood loss was 5 cc or less. At the conclusion of the operation I attempted to contact family and discussed my findings and recommendations. At this time we will continue him on Lovenox to manage his anticoagulation. This is in case he would need further operative intervention which is unlikely. We will follow-up on cultures. He can weight-bear as tolerated on his heel. He will continue intravenous antibiotics. The superficial culture had shown MRSA. I attest to the content of the Intraoperative Record and any orders documented therein. Any exceptions are noted below.
--- NOTE | 2020-08-11 13:28 | Operative Report ---
Post Operative Report Pre & Post Diagnosis Operation Date: 08/11/20 09:05 Pre-Op Diagnosis: Right Foot Abscess Post-Op Diagnosis: Right Foot Abscess I identified the patient and participated in the time-out.: Yes Procedure Operation Date: 08/11/20 09:05 Actual Procedures p Right Foot Abscess Incision and Drainage(Right) - Moshe Parikh MD Surgeon Moshe Parikh M.D. [employer]igator Ann Dixon PA-C no resident or fellow available Estimated Blood Loss 5 Findings Consistent with Post-Op Diagnosis Specimens Right foot bursa intra-operative cultures Drains None Anesthesia Type General Regional Complications none Description of Procedure Patient was taken to the operating room, placed under general anesthesia. IV Vanco was given in adequate time frame on the floor prior to incision. I was present during the entire case, please see Dr. Parikh's operative report for further detail. Patient was taken to the recovery room in stable condition. I attest to the content of the Intraoperative Record and any orders documented therein. Any exceptions are noted below.
[2020-08-11] MEDS ORDERED: ONDANSETRON INJ 2 MG/ML 2 ML VIAL ONE (13:35)
[2020-08-11] MEDS ORDERED: PHENYLEPHRINE 100MCG/ML 5ML SYR ONE (13:35)
--- NOTE | 2020-08-11 13:50 | Anesthesiology Progress Note ---
Date of Service August 11, 2020 Anesthesia Post Procedure Vital Signs Vital Signs: Temp Pulse Pulse Pulse Resp BP BP 08/11/20 13:45 62 16 122/71 08/11/20 13:35 60 15 131/79 08/11/20 13:27 36.3 C L 61 18 131/72 08/11/20 11:47 36.7 C 60 20 138/80 08/11/20 07:01 37.0 C 60 24 125/77 08/10/20 23:26 36.7 C 60 18 08/10/20 19:28 36.6 C 72 16 08/10/20 18:55 60 20 08/10/20 17:19 60 20 08/10/20 16:01 59 L 20 08/10/20 14:32 36.6 C 70 20 140/84 BP Pulse Ox 08/11/20 13:45 96 08/11/20 13:35 100 08/11/20 13:27 100 08/11/20 11:47 97 08/11/20 07:01 95 08/10/20 23:26 143/75 H 97 08/10/20 19:28 156/80 H 98 08/10/20 18:55 130/74 96 08/10/20 17:19 134/75 100 08/10/20 16:01 127/74 99 08/10/20 14:32 99 Pain Intensity Right Foot: Pain Intensity: 0 Transfer of Care Handoff Completed per policy Notes Mental Status: alert / awake / arousable and participated in evaluation Patient Amnestic to Procedure: Yes Nausea / Vomiting: adequately controlled Pain: adequately controlled Airway Patency, RR, SpO2: stable & adequate BP & HR: stable & adequate Hydration State: stable & adequate Anesthetic Complications: no major complications apparent and Pt Satisfied with anesthetic care
[2020-08-11] MEDS ORDERED: ONDANSETRON INJ 2 MG/ML 2 ML VIAL IV PRN (14:14)
[2020-08-11] MEDS ORDERED: bisacodyL 10 MG SUPP PR PRN (14:14)
[2020-08-11] MEDS ORDERED: METOCLOPRAMIDE HCL INJ 5 MG/ML 2 ML VIAL IV PRN (14:14)
[2020-08-11] MEDS ORDERED: MAGNESIUM HYDROXIDE SUSP 30 ML UDC PO PRN (14:14)
[2020-08-11] MEDS ORDERED: HYDROmorphone INJ 0.5 MG/0.5 ML SYR IV PRN (14:14)
[2020-08-11] MEDS ORDERED: NALOXONE HCL 0.4 MG/1 ML VIAL/CARP IV PRN (14:14)
[2020-08-11] MEDS ORDERED: traMADol HCL 50 MG TABLET PO PRN (14:14)
--- NOTE | 2020-08-11 14:34 | Pharmacy Report ---
Pharmacy Glycemic Short Note 2 - Date of Service August 11, 2020 - Glycemic Short BSG Results (Last 24 hours): 08/10/20 08/10/20 08/11/20 15:44 20:45 00:22 Glucose 122 H POC Glucose 131 H 104 H 08/11/20 08/11/20 08/11/20 06:06 11:43 13:29 Glucose POC Glucose 127 H 127 H 114 H OUTPATIENT ANTIDIABETIC REGIMEN: * metformin ASSESSMENT: * 64 year old admitted with right foot abscess, started on vancomycin and unasyn. Went for I&D today. Type 2 diabetic managed only on metformin at home. NPO this AM for procedure * Continue with novolog stress of 2 dosing. A1c of PLAN FOR INPATIENT GLYCEMIC CONTROL: * Hold outpatient oral diabetes medications * Basal insulin * Lantus [] units SQ BID * Bolus insulin * NovoLog per scale ACHS or Q6hrs while NPO * Goal Range: Low [] mg/dL - High [] mg/dL * Correction Factor: [] mg/dL/unit * Nutritional / Prandial insulin per carb ratio of 1 unit per [] grams CHO consumed PLAN FOR DISCHARGE: *
--- NOTE | 2020-08-11 14:37 | Pharmacy Report ---
Pharmacy Glycemic Short Note 2 - Date of Service August 11, 2020 - Glycemic Short BSG Results (Last 24 hours): 08/10/20 08/10/20 08/11/20 15:44 20:45 00:22 Glucose 122 H POC Glucose 131 H 104 H 08/11/20 08/11/20 08/11/20 06:06 11:43 13:29 Glucose POC Glucose 127 H 127 H 114 H OUTPATIENT ANTIDIABETIC REGIMEN: * metformin ASSESSMENT: * 64 year old admitted with right foot abscess, started on vancomycin and unasyn. Went for I&D today. Type 2 diabetic managed only on metformin at home. NPO this AM for procedure * Continue with novolog stress of 2 dosing. Last A1c of 7.0 01/2020 - ordered another for tomorrow. May add small basal scale for HS if BSGs trend up, as unclear diabetes control is at home PLAN FOR INPATIENT GLYCEMIC CONTROL: * Hold outpatient oral diabetes medications * Basal insulin * Lantus 0-10 units HS / only if BSG >200 * Bolus insulin * NovoLog per scale ACHS or Q6hrs while NPO * Goal Range: Low 110 mg/dL - High 140 mg/dL * Correction Factor: 30 mg/dL/unit * Nutritional / Prandial insulin per carb ratio of 1 unit per 10 grams CHO consumed PLAN FOR DISCHARGE: * tbd
[2020-08-11] MEDS: SODIUM CHLORIDE 0.9% 1000ML 1,000 ML IV SCH (14:52)
[2020-08-11] MEDS: ACETAMINOPHEN 500 MG TAB PO SCH ×3 (14:56→22:12)
[2020-08-11] MEDS ORDERED: WARFARIN SOD 5 MG TAB PO SCH ×2 (16:00)
[2020-08-11] MEDS ORDERED: Nursing to Pharmacy Communication SCH (16:30)
[2020-08-11] MEDS: ATORVASTATIN 40 MG TAB PO SCH (20:41)
[2020-08-11] MEDS: DOCUSATE SODIUM 100 MG CAP PO SCH (20:41)
[2020-08-11] MEDS: TAMSULOSIN HCL 0.4 MG CAP PO SCH (20:41)
[2020-08-11] MEDS: metFORMIN HCL ER 500 MG TABCR PO SCH (20:42)
[2020-08-11] MEDS: SENNA 8.6 MG TAB PO SCH (20:44)
[2020-08-11] MEDS ORDERED: LANTUS PER UNIT CHARGE SQ SCH (21:00)
[2020-08-11] MEDS ORDERED: [UNRECOGNIZED DRUG - OTHER] PO SCH (21:00)
[2020-08-11] MEDS: oxyCODONE HCL IR 5 MG TAB (IMMEDIATE RELEASE) PO PRN ×2 (22:14→22:53)
[2020-08-12] MEDS: SODIUM CHLORIDE 0.9% 1000ML 1,000 ML IV SCH (00:09)
[2020-08-12] MEDS: AMPICILLIN/SULBACTAM SOD 1,500 MG in 0.9 % SODIUM CHLORIDE 100 ML IV SCH ×4 (02:44→20:15)
[2020-08-12] MEDS: oxyCODONE HCL IR 5 MG TAB (IMMEDIATE RELEASE) PO PRN (02:53)
[2020-08-12] MEDS ORDERED: VANCOMYCIN TROUGH ONE (05:30)
--- NOTE | 2020-08-12 05:54 | Electrocardiogram Report ---
Test Reason : Blood Pressure : / mmHG Vent. Rate : 063 BPM Atrial Rate : 060 BPM P-R Int : 000 ms QRS Dur : 162 ms QT Int : 444 ms P-R-T Axes : 000 -72 081 degrees QTc Int : 454 ms Ventricular-paced rhythm Abnormal ECG When compared with ECG of 19-FEB-2019 10:32, Vent. rate has increased BY 2 BPM Confirmed by Tobi Sutton ([id number]) on 08/12/2020 5:54:45 AM Referred By: REFERRED SELF Confirmed By:Tobi Sutton
[2020-08-12 05:57] LABS: Basophils # (auto) 0.01 K/uL (0-0.2); Basophils % (auto) 0.1 %; Eosinophils # (auto) 0.34 K/uL (0-0.5); Eosinophils % (auto) 4.3 %; Hematocrit (blood only) 36.2 % (42-52); Hemoglobin 11.8 g/dL (14.0-18.0); Immature Granulocytes # (auto) 0.01 K/uL (0.00-0.02); Immature Granulocytes % (auto) 0.1 %; Lymphocytes # (auto) 0.54 K/uL (1.2-3.4); Lymphocytes % (auto) 6.9 %; Mean Corpuscular Hemoglobin 30.2 pg (25-34); Mean Corpuscular Hgb Conc 32.6 g/dL (32-36); Mean Corpuscular Volume 92.6 fL (80-100); Mean Platelet Volume 10.9 fL (7.4-10.4); Monocytes # (auto) 0.82 K/uL (0.11-0.59); Monocytes % (auto) 10.5 %; Neutrophils # (auto) 6.12 K/uL (1.4-6.5); Neutrophils % (auto) 78.1 %; Platelet Count 132 K/uL (130-400); RDW Coefficient of Variation 13.7 % (11.5-14.5); RDW Standard Deviation 45.9 fL (36.4-46.3); Red Blood Count 3.91 M/uL (4.7-6.1); White Blood Count 7.84 K/uL (4.8-10.8)
[2020-08-12] MEDS: VANCOMYCIN HCL 1,500 MG in SODIUM CHLORIDE 0.9% 500 ML IV SCH ×3 (06:08→21:45)
[2020-08-12] MEDS: ACETAMINOPHEN 500 MG TAB PO SCH ×3 (06:09→21:45)
[2020-08-12 06:13] LABS: INR 1.2 (0.9-1.1)
[2020-08-12 06:27] LABS: BUN Creatinine Ratio 15.2 (10-20); Calcium 8.2 mg/dl (8.5-10.1); Creatinine Clr Calc Pharmacy 125.8 ml/min; Est GFR (African American) 113.3; Est GFR (Non-African American) 97.8; Potassium 3.9 mmol/L (3.5-5.1)
[2020-08-12 07:45] LABS: Estimated Average Glucose 137 mg/dl; Hemoglobin A1C 6.4 % (4.5-5.6)
[2020-08-12] MEDS: METOPROLOL SUCC 25MG EXT REL TAB PO SCH (08:06)
[2020-08-12] MEDS: LOSARTAN POTASSIUM 50 MG TAB PO SCH (08:06)
[2020-08-12] MEDS: DOCUSATE SODIUM 100 MG CAP PO SCH ×2 (08:06→20:16)
[2020-08-12] MEDS: hydroCHLOROthiazide 25 MG TAB PO SCH (08:06)
[2020-08-12] MEDS: metFORMIN HCL ER 500 MG TABCR PO SCH ×2 (08:06→16:56)
[2020-08-12] MEDS: ASPIRIN 81 MG ECTAB PO SCH (08:07)
--- NOTE | 2020-08-12 08:20 | Pharmacy Report ---
Pharmacy Abx Dose Short Note - Date of Service August 12, 2020 - Assessment & Plan Assessment 64 year old M receiving vancomycin and unasyn for treatment of diabetic foot ulcer Day # 3 of antimicrobial therapy. Plan Vancomycin * Trough level came back therapeutic at ~17 mcg/ml - (goal 15-20 mcg/ml for cellulitis + abscess) * Plan to continue same vancomycin dosing of 1500 mg iv q 8 hrs * Renal function remains stable. Patient now s/p I&D of foot 08/11 with final cultures still pending * Foot MRI - negative for osteomyelitis, however concern for abscess/cellulitis * Plan to recheck trough in next 2-3 days if continued Pharmacy will continue to follow and will adjust dose/frequency as necessary. Thank you.
[2020-08-12] MEDS: INSULIN ASPART 100 UNITS/ML 3 ML PEN SC SCH ×4 (08:39→21:19)
[2020-08-12] MEDS ORDERED: ENOXAPARIN INJ 40 MG/0.4 ML SYR SQ SCH (09:00)
[2020-08-12] MEDS ORDERED: NON-FORMULARY MEDICATION (Coenzyme Q10 [Co Q-10] 200 mg capsule) PO SCH (09:00)
[2020-08-12] MEDS ORDERED: CALCIUM GLUCONATE 500 MG PO SCH (09:00)
[2020-08-12] MEDS ORDERED: LOSARTAN POTASSIUM 50 MG TAB PO SCH (09:00)
--- NOTE | 2020-08-12 14:33 | Hospitalist Progress Note ---
Date of Service August 12, 2020 Assessment & Plan (1) Abscess of foot: Right foot s/p I&D Currently on Unasyn and vancomycin - can probably discontinue Unasyn at this point as culture is growing MRSA but may want to hold off until intraoperative cultures are resulted. May want an infectious disease consult to determine length of treatment DVT proph per primary - patient refusing dvt prophylaxis Lovenox until warfarin therapeutic. Discussed risk of DVT with patient but patient does not want the shots (2) Gout: Continue prn indomethacin (3) Pacemaker: noted (4) Diabetes mellitus: Resumed home metformin and has ss Pharmacy glycemic consult has signed off (5) Hypertension: continue metoprolol, losartan, hctz (6) Dyslipidemia: Continue statin (7) CAD (coronary artery disease): Continue baby asa when ok with surgery, continue statin, beta vivian, losartan (8) Paroxysmal atrial fibrillation: Warfarin resumed, no need to bridge INR am Admission and Anticipated Discharge Date Admission Date: August 10, 2020 Supervising Physician Co-Signing Physician Notes I personally examined the patient and verified all kiser points of history and exam, discussed case, and agree with decision making with Ada SANCHEZ feeling ok mostly bored. notes that he's made massive lifestyle changes over the last ~10 months and has lost a lot of weight and brought down A1c considerably as well as being able to get off some meds colton noted nad heent nc at mmm breathing unlabored no accessory muscles good effort skin no rashes no pallor or icterus foot wrapped no tracking erythema DM foot infection - I&D done. continue abx DM2 - applauded lifestyle efforts - now under good control otherwise as above Subjective Mr. Fitzgerald is feeling well, no complaints Review of Systems Constitutional: no fever, no chills and no body aches Cardiovascular: no chest pain and no palpitations Gastrointestinal: no abdominal pain, no nausea and no vomiting Genitourinary: no dysuria and no urinary hesitancy Musculoskeletal: no back pain and no joint pain Integumentary: no rash Physical Exam Physical Exam: General: no distress Eyes: normal inspection, PERLL Respiratory: chest non tender, clear to auscultation, normal breath sounds, no respiratory distress, no accessory muscle use Cardiac: regular rate and rhythm, no rub or gallop, no murmur, no edema, no jvd GI/: active bowel sounds, no abd pain or tenderness, soft, non distended Extremities: normal range of motion, normal strength, non tender Neuro/Psych: alert and oriented x 3, normal mood and affect Skin: normal color, dry Results & Data Results & Data ([facility]) Vital Signs (Past 12 Hours) Vital Signs Temp Pulse Resp BP Pulse Ox 08/12/20 08:05 60 08/12/20 03:24 36.9 C 59 L 16 127/75 97 PG Care Time/CCT Total # of Minutes Spent Total Time Spent with Patient: Total time spent is greater than 50% in coordination of care (as documented) at patient's floor/unit and/or counseling patient: Coding Level of Care Code 55842 Subseq Hosp Care Lvl 2 Diagnoses Abscess of foot L02.619 Gout M10.9 Pacemaker Z95.0 Diabetes mellitus E11.42 Diabetes mellitus complication detail: with polyneuropathy Diabetes mellitus complication status: with neurologic complications Diabetes mellitus termite treater helper insulin use: without termite treater helper use Diabetes mellitus type: type 2 Hypertension I10 Hypertension type: essential hypertension Dyslipidemia E78.5 CAD (coronary artery disease) I25.10 Paroxysmal atrial fibrillation I48.0 (1) Diabetes mellitus Diabetes mellitus complication detail: with polyneuropathy Diabetes mellitus complication status: with neurologic complications Diabetes mellitus assisted insulin use: without termite treater helper use Diabetes mellitus type: type 2 Qualified Code(s): E11.42 - Type 2 diabetes mellitus with diabetic polyneuropathy (2) Hypertension Hypertension type: essential hypertension Qualified Code(s): I10 - Essential (primary) hypertension
--- NOTE | 2020-08-12 15:04 | Orthopedic Progress Note ---
Date of Service August 12, 2020 Assessment & Plan (1) Diabetic ulcer of right foot: S/P I & D right foot on 08/11/[address] Parikh Dressings changed today right foot. Patient may be out of bed, weight bear as tolerated right foot on his heel with a post op shoe on right foot. He may use walker as needed for assistance with walking. Ice and elevation right foot above heart as needed for pain/swelling. He may do full range of motion as tolerated. Appreciate medical assistance. Continue IV antibiotics - cultures currently pending. Will resume Coumadin this AM, 10 mg. Patient was ordered Lovenox this AM but he refused dose. Continue dressings right foot. Regular diabetic diet as ordered. Follow up appointments scheduled as outpatient. Case management for disposition PT/OT ordered. Will re-eval in AM, possible discharge this weekend to home if cultures finalize. Admission and Anticipated Discharge Date Admission Date: August 10, 2020 Subjective Patient is feeling well, no complaints. Mild pain throughout the night requiring pain medication. Pain controlled now. He's been out of bed, elevating his right foot. Tolerating a regular diet. Physical Exam Physical Exam: Exam of right foot: Seen today by myself and Dr. Parikh today with Eloisa Quintero ([facility]). Incision clean, dry, intact. retained sutures. Iodoform packing present through hole in callus. Iodoform removed and aquacel placed in the opening of the callus. Adapatic applied over incision. Foot less swollen today with skin wrinkles and less erythema on dorsum of foot. Distal pulses 1+. Toes move well with mild stiffness with flexion. Full ankle ROM. No calf tenderness. No active drainage from wound. Results & Data ([facility]) Vital Signs (Past 12 Hours) Vital Signs Temp Pulse Resp BP Pulse Ox 08/12/20 08:05 60 08/12/20 03:24 36.9 C 59 L 16 127/75 97 Laboratory Results 08/12/20 08/12/20 08/12/20 Range/Units 12:25 08:19 05:27 WBC (4.8-10.8) K/uL RBC (4.7-6.1) M/uL Hgb (14.0-18.0) g/dL Hct (42-52) % MCV (80-100) fL MCH (25-34) pg MCHC (32-36) g/dL RDW Std Deviation (36.4-46.3) fL RDW Coeff of Suzy (11.5-14.5) % Plt Count (130-400) K/uL MPV (7.4-10.4) fL Immature Gran % (Auto) % Neut % (Auto) % Lymph % (Auto) % [place] % (Auto) % Eos % (Auto) % Baso % (Auto) % Neut # (Auto) (1.4-6.5) K/uL Lymph # (Auto) (1.2-3.4) K/uL [place] # (Auto) (0.11-0.59) K/uL Eos # (Auto) (0-0.5) K/uL Baso # (Auto) (0-0.2) K/uL Immature Gran # (Auto) (0.00-0.02) K/uL PT 13.0 H (9.0-12.0) Seconds INR 1.2 H (0.9-1.1) Sodium (136-145) mmol/L Potassium (3.5-5.1) mmol/L Chloride (98-107) mmol/L Carbon Dioxide (21-32) mmol/L Anion Gap (3-11) BUN (7-18) mg/dl Creatinine (0.6-1.4) mg/dl Est Cr Clr Drug Dosing ml/min Est GFR ( Amer) Est GFR (Non-Af Amer) BUN/Creatinine Ratio (10-20) Glucose (70-99) mg/dl POC Glucose 150 H 137 H (70-99) mg/dl Estimat Average Glucose mg/dl Hemoglobin A1c (4.5-5.6) % Calcium (8.5-10.1) mg/dl Vancomycin Trough (See Comment) mcg/ml 08/12/20 08/12/20 08/12/20 Range/Units 05:27 05:27 05:27 WBC 7.84 (4.8-10.8) K/uL RBC 3.91 L (4.7-6.1) M/uL Hgb 11.8 L (14.0-18.0) g/dL Hct 36.2 L (42-52) % MCV 92.6 (80-100) fL MCH 30.2 (25-34) pg MCHC 32.6 (32-36) g/dL RDW Std Deviation 45.9 (36.4-46.3) fL RDW Coeff of Suzy 13.7 (11.5-14.5) % Plt Count 132 (130-400) K/uL MPV 10.9 H (7.4-10.4) fL Immature Gran % (Auto) 0.1 % Neut % (Auto) 78.1 % Lymph % (Auto) 6.9 % [place] % (Auto) 10.5 % Eos % (Auto) 4.3 % Baso % (Auto) 0.1 % Neut # (Auto) 6.12 (1.4-6.5) K/uL Lymph # (Auto) 0.54 L (1.2-3.4) K/uL [place] # (Auto) 0.82 H (0.11-0.59) K/uL Eos # (Auto) 0.34 (0-0.5) K/uL Baso # (Auto) 0.01 (0-0.2) K/uL Immature Gran # (Auto) 0.01 (0.00-0.02) K/uL PT (9.0-12.0) Seconds INR (0.9-1.1) Sodium (136-145) mmol/L Potassium (3.5-5.1) mmol/L Chloride (98-107) mmol/L Carbon Dioxide (21-32) mmol/L Anion Gap (3-11) BUN (7-18) mg/dl Creatinine (0.6-1.4) mg/dl Est Cr Clr Drug Dosing ml/min Est GFR ( Amer) Est GFR (Non-Af Amer) BUN/Creatinine Ratio (10-20) Glucose (70-99) mg/dl POC Glucose (70-99) mg/dl Estimat Average Glucose 137 mg/dl Hemoglobin A1c 6.4 H (4.5-5.6) % Calcium (8.5-10.1) mg/dl Vancomycin Trough 17.8 (See Comment) mcg/ml 08/12/20 08/11/20 08/11/20 Range/Units 05:27 20:32 17:16 WBC (4.8-10.8) K/uL RBC (4.7-6.1) M/uL Hgb (14.0-18.0) g/dL Hct (42-52) % MCV (80-100) fL MCH (25-34) pg MCHC (32-36) g/dL RDW Std Deviation (36.4-46.3) fL RDW Coeff of Suzy (11.5-14.5) % Plt Count (130-400) K/uL MPV (7.4-10.4) fL Immature Gran % (Auto) % Neut % (Auto) % Lymph % (Auto) % [place] % (Auto) % Eos % (Auto) % Baso % (Auto) % Neut # (Auto) (1.4-6.5) K/uL Lymph # (Auto) (1.2-3.4) K/uL [place] # (Auto) (0.11-0.59) K/uL Eos # (Auto) (0-0.5) K/uL Baso # (Auto) (0-0.2) K/uL Immature Gran # (Auto) (0.00-0.02) K/uL PT (9.0-12.0) Seconds INR (0.9-1.1) Sodium 136 (136-145) mmol/L Potassium 3.9 (3.5-5.1) mmol/L Chloride 104 (98-107) mmol/L Carbon Dioxide 30 (21-32) mmol/L Anion Gap 2.0 L (3-11) BUN 11 (7-18) mg/dl Creatinine 0.71 (0.6-1.4) mg/dl Est Cr Clr Drug Dosing 125.8 ml/min Est GFR ( Amer) 113.3 Est GFR (Non-Af Amer) 97.8 BUN/Creatinine Ratio 15.2 (10-20) Glucose 110 H (70-99) mg/dl POC Glucose 102 H 147 H (70-99) mg/dl Estimat Average Glucose mg/dl Hemoglobin A1c (4.5-5.6) % Calcium 8.2 L (8.5-10.1) mg/dl Vancomycin Trough (See Comment) mcg/ml Microbiology 08/11/20 12:47 Gram Stain - Final Foot,Right Aerobic and Anaerobic Culture - Preliminary Pin-point growth present, reincubating. Cultures show gram positive cocci - senstivities pending
[2020-08-12] MEDS ORDERED: WARFARIN SOD 10 MG TAB PO SCH ×2 (16:00)
[2020-08-12] MEDS ORDERED: TAMSULOSIN HCL 0.4 MG CAP PO SCH (16:30)
[2020-08-12] MEDS ORDERED: Nursing to Pharmacy Communication SCH (16:45)
[2020-08-12] MEDS: ATORVASTATIN 40 MG TAB PO SCH (20:16)
[2020-08-12] MEDS: SENNA 8.6 MG TAB PO SCH (20:16)
[2020-08-12] MEDS ORDERED: diphenhydrAMINE Capsule 25 MG CAP PO ONE (23:41)
[2020-08-13] MEDS: AMPICILLIN/SULBACTAM SOD 1,500 MG in 0.9 % SODIUM CHLORIDE 100 ML IV SCH ×2 (01:06→08:54)
[2020-08-13] MEDS: VANCOMYCIN HCL 1,500 MG in SODIUM CHLORIDE 0.9% 500 ML IV SCH ×3 (06:08→21:50)
[2020-08-13] MEDS: ACETAMINOPHEN 500 MG TAB PO SCH ×3 (06:08→21:49)
[2020-08-13 06:37] LABS: INR 1.4 (0.9-1.1); Prothrombin Time 14.4 Seconds (9.0-12.0)
[2020-08-13 06:54] LABS: Creatinine Clr Calc Pharmacy 135.4 ml/min; Est GFR (African American) 116.8; Est GFR (Non-African American) 100.7
[2020-08-13] MEDS: INSULIN ASPART 100 UNITS/ML 3 ML PEN SC SCH ×4 (09:00→21:57)
[2020-08-13] MEDS: metFORMIN HCL ER 500 MG TABCR PO SCH ×2 (09:07→17:39)
[2020-08-13] MEDS: ASPIRIN 81 MG ECTAB PO SCH (09:08)
[2020-08-13] MEDS: LOSARTAN POTASSIUM 50 MG TAB PO SCH (09:09)
[2020-08-13] MEDS: hydroCHLOROthiazide 25 MG TAB PO SCH (09:09)
[2020-08-13] MEDS: DOCUSATE SODIUM 100 MG CAP PO SCH ×2 (09:10→16:17)
[2020-08-13] MEDS: METOPROLOL SUCC 25MG EXT REL TAB PO SCH (09:10)
--- NOTE | 2020-08-13 13:43 | Progress Notes ---
DATE: 08/13/2020 He is resting comfortably, sitting in a chair with his leg propped up. The foot feels better. He has had no fever and his vital signs are stable. His blood sugars are under reasonably good control. Cultures growing out Staph, sensitivity is pending, probably MRSA. There are low counts of skin tho as well. The dressing is changed. There is some slightly purulent drainage coming out of the incision and also out of the plantar aspect. The packing is changed. He has persistent swelling and tenderness over the lateral forefoot, especially but this is less than it was yesterday. Passive movement of the fourth and fifth metatarsophalangeal joints elicits no discomfort. A new Aquacel AG packing is placed along with a new dressing. IMPRESSION: Diabetes with neuropathy, intractable plantar keratosis and diabetic foot ulceration, status post I and D. PLAN: Continue intravenous antibiotics. I think we will stop the Unasyn and continue the vancomycin. Await sensitivities. I think further antibiotic IV therapy is necessary given the circumstances. I would like to see him have further improvement in pain and swelling. We will give him 10 mg of Coumadin as his INR today is 1.4.
--- NOTE | 2020-08-13 14:11 | Hospitalist Progress Note ---
Date of Service August 13, 2020 Assessment & Plan (1) Abscess of foot: Right foot s/p I&D 08/11/20 Abx per primary - initial culture growing MRSA, awaiting intraoperative culture (2) Gout: Continue prn indomethacin (3) Pacemaker: noted (4) Diabetes mellitus: Resumed home metformin and has ss Pharmacy glycemic consult has signed off (5) Hypertension: continue metoprolol, losartan, hctz (6) Dyslipidemia: Continue statin (7) CAD (coronary artery disease): Continue ASA, continue statin, beta vivian, losartan (8) Paroxysmal atrial fibrillation: Warfarin resumed, no need to bridge Per primary - will give 10 mg warfarin today as INR is 1.4 Patient has appointment with his coag clinic on Saturday Thank you for involving us in the care of this patient, medicine will sign off at this time. Please call with any questions or concerns Admission and Anticipated Discharge Date Admission Date: August 10, 2020 Supervising Physician Co-Signing Physician Notes chart reviewed and case d/w S Lilian SANCHEZ. agree w above Subjective Mr. Fitzgerald is feeling well today, no complaints Review of Systems Constitutional: no fever, no chills and no body aches Respiratory: no cough and no dyspnea Cardiovascular: no chest pain and no palpitations Gastrointestinal: no abdominal pain, no nausea and no vomiting Genitourinary: no dysuria and no nocturia Musculoskeletal: no back pain and no joint pain Integumentary: no rash Physical Exam Physical Exam: General: no distress Eyes: normal inspection, PERLL Respiratory: chest non tender, clear to auscultation, normal breath sounds, no respiratory distress, no accessory muscle use Cardiac: regular rate and rhythm, no rub or gallop, no murmur, no edema, no jvd GI/: active bowel sounds, no abd pain or tenderness, soft, non distended Extremities: normal range of motion, normal strength, non tender Neuro/Psych: alert and oriented x 3, normal mood and affect Skin: normal color, dry Results & Data Results & Data ([facility]) Vital Signs (Past 12 Hours) Vital Signs Temp Pulse Pulse Resp BP Pulse Ox 08/13/20 09:04 61 119/68 08/13/20 08:00 36.5 C 60 16 123/64 96 PG Care Time/CCT Total # of Minutes Spent Total Time Spent with Patient: Total time spent is greater than 50% in coordination of care (as documented) at patient's floor/unit and/or counseling patient: Coding Level of Care Code 18893 Subseq Hosp Care Lvl 2 Diagnoses Abscess of foot L02.619 Gout M10.9 Pacemaker Z95.0 Diabetes mellitus E11.42 Diabetes mellitus complication detail: with polyneuropathy Diabetes mellitus complication status: with neurologic complications Diabetes mellitus ferry terminal agent insulin use: without assisted use Diabetes mellitus type: type 2 Hypertension I10 Hypertension type: essential hypertension Dyslipidemia E78.5 CAD (coronary artery disease) I25.10 Paroxysmal atrial fibrillation I48.0 (1) Diabetes mellitus Diabetes mellitus complication detail: with polyneuropathy Diabetes mellitus complication status: with neurologic complications Diabetes mellitus ferry terminal agent insulin use: without assisted use Diabetes mellitus type: type 2 Qualified Code(s): E11.42 - Type 2 diabetes mellitus with diabetic polyneuropathy (2) Hypertension Hypertension type: essential hypertension Qualified Code(s): I10 - Essential (primary) hypertension
[2020-08-13] MEDS ORDERED: WARFARIN SOD 5 MG TAB PO ONE (16:00)
[2020-08-13] MEDS ORDERED: WARFARIN SOD 5 MG TAB PO SCH (16:00)
[2020-08-13] MEDS: SENNA 8.6 MG TAB PO SCH (16:17)
[2020-08-13] MEDS: ATORVASTATIN 40 MG TAB PO SCH (21:48)
[2020-08-14] MEDS: VANCOMYCIN HCL 1,500 MG in SODIUM CHLORIDE 0.9% 500 ML IV SCH ×2 (05:33→14:28)
[2020-08-14] MEDS: ACETAMINOPHEN 500 MG TAB PO SCH ×2 (05:33→14:59)
[2020-08-14 07:13] LABS: Creatinine Clr Calc Pharmacy 127.6 ml/min; Est GFR (Non-African American) 98.3
[2020-08-14] MEDS: DOCUSATE SODIUM 100 MG CAP PO SCH (08:44)
[2020-08-14] MEDS: ASPIRIN 81 MG ECTAB PO SCH (08:44)
[2020-08-14] MEDS: metFORMIN HCL ER 500 MG TABCR PO SCH (08:44)
[2020-08-14] MEDS: LOSARTAN POTASSIUM 50 MG TAB PO SCH (08:44)
[2020-08-14] MEDS: METOPROLOL SUCC 25MG EXT REL TAB PO SCH (08:45)
[2020-08-14] MEDS: hydroCHLOROthiazide 25 MG TAB PO SCH (08:45)
[2020-08-14] MEDS: INSULIN ASPART 100 UNITS/ML 3 ML PEN SC SCH ×2 (10:00→12:52)
--- NOTE | 2020-08-14 13:27 | Progress Notes ---
DATE: 08/14/2020 Sitting with leg elevated. Feels better. Less redness, swelling and pain. There is minimal to no purulent drainage today. Packing changed and is soaked with fluid. No pain with movement of the fourth and fifth metatarsophalangeal joints. He is afebrile. His vital signs are stable. Cultures are growing out MRSA sensitive to Bactrim. INR not done today. Stable for discharge. Follow up with me later this week. My office will call him with an appointment. He has an appointment in the wound clinic tomorrow. He has an appointment in Coumadin Clinic tomorrow. We will check his INR now and let him know how much Coumadin to take tonight. We will also try to arrange home health nursing for him for when he is not in the wound clinic. If there are any problems with pain, swelling, fevers, chills, etc., please go to the Emergency Room or call my office. He has pain medication at home. He will resume his regular medications in addition to Bactrim DS 1 p.o. b.i.d. Elevate the leg, limit activity, wear a postop shoe, bear weight on heel, use walker.
[2020-08-14] MEDS ORDERED: VANCOMYCIN TROUGH ONE (13:30)
--- NOTE | 2020-08-15 10:20 | Discharge Summary (DS) ---
ADMISSION DIAGNOSIS: Right foot diabetic foot ulceration with abscess. POSTOPERATIVE DIAGNOSIS: Right foot diabetic foot ulceration with abscess. PROCEDURE: Incision and drainage with debridement. ATTENDING PHYSICIAN: Moshe Praikh MD. CONSULTING PHYSICIAN: Hospitalist service. BRIEF HISTORY: Mr. Fitzgerald was seen in my office on 08/10. He had had a week long history of worsening pain, redness and swelling on the right foot. He had been seen in the wound clinic and was thought to have had developed an abscess related to an intractable plantar keratosis/diabetic foot ulceration on the plantar aspect of his fifth metatarsophalangeal joint. X-ray, CT scan and MRI were performed showing no evidence of osteomyelitis or foreign material, but there was suggestion of an abscess. He was then admitted to the hospital for IV antibiotics and surgery. He was not septic. HOSPITAL COURSE: The patient was admitted and placed on broad spectrum intravenous antibiotics. A previous superficial wound culture grew out MRSA. He was therefore placed on vancomycin. The operative wound culture from this procedure also grew out MRSA. His anticoagulation was reversed with vitamin K. Medicine consultation was obtained. DVT prophylaxis with mechanical devices and aspirin. He declined to be on Lovenox. Postoperatively, he was placed back on his Coumadin. He had an incision and drainage and debridement performed. Pathology showed a necrotic inflamed bursa. The wound was packed daily through the sore on the bottom of the foot. He had a marked improvement in pain, redness and swelling. He remained afebrile. The MRSA was sensitive to Bactrim. The patient was discharged home in good condition. He is to follow up in the wound clinic and also in my office later the same week. His wound clinic appointment is the next day. We will try to arrange home health nursing for him if possible. He is to continue to take his regular medications. He has a Coumadin Clinic appointment the day after discharge as well and was instructed to take 5 mg of Coumadin, which is his normal dose of Coumadin on the day of discharge. If he has any problems with severe pain, swelling, fevers, numbness or any other issues, problems or questions, please call my office or go to the Emergency Room. Bactrim is sent to his pharmacy and he will take that for at least 10 days. The plan for the wound is to offload with postop shoe, bear weight on the heel, elevate it and he will need daily dressing changes and packing with Aquacel AG until further notice. He will resume his previous medications including his Coumadin.
--- NOTE | 2020-08-25 10:58 | Coding Query ---
CODING QUERY To promote full compliance with coding requirements relating to patient care, provider participation is requested in all cases of hand cementer uncertainty. Please assist us with the question(s) below: Coding Question(s): This patient is listed as having both diabetic polyneuropathy and a diabetic foot ulcer. In your clinical opinion are these two conditions related or independent of each other? Thank you. Physician's Response(s): ( x ) Diabetic foot ulcer due to diabetic polyneuropathy ( ) Diabetic foot ulcer and diabetic polyneuropathy unrelated ( ) Other, please specify ( ) Unable to determine Thank you Winifred Crook Principal Diagnosis: "that condition established after study, to be chiefly responsible for occasioning the admission of the patient to the hospital for care." Co-Existing Principal Diagnosis: "when two or more diagnoses equally meet the criteria for principal diagnosis as determined by the circumstances of admission, diagnostic work up, and/or therapy provided, and the Alphabetic Index, Tabular List, or another coding guideline does not provide sequencing direction, any one of the diagnoses may be sequenced first." "When the physician has documented what appears to be a current diagnosis in the body of the record, but has not included the diagnosis in the final diagnostic statement, the physician should be asked whether the diagnosis should be added." (Source Coding Clinic 2 QTR90. p3-4) DURAN
== END 2020-08-14 15:33 | disposition home health service (06) | DRG 41 ==
LOC: ED 14:17 → 3W 17:45

== ENCOUNTER 2021-04-09 15:28 | Inpatient (IN) ==
[2021-04-09 16:03] LABS: Basophils # (auto) 0.03 K/uL (0-0.2); Basophils % (auto) 0.4 %; Eosinophils # (auto) 0.15 K/uL (0-0.5); Eosinophils % (auto) 1.8 %; Hemoglobin 13.5 g/dL (14.0-18.0); Immature Granulocytes # (auto) 0.02 K/uL (0.00-0.02); Immature Granulocytes % (auto) 0.2 %; Lymphocytes # (auto) 1.08 K/uL (1.2-3.4); Lymphocytes % (auto) 13.3 %; Mean Corpuscular Hemoglobin 30.8 pg (25-34); Mean Corpuscular Hgb Conc 33.8 g/dL (32-36); Mean Corpuscular Volume 91.1 fL (80-100); Mean Platelet Volume 11.3 fL (7.4-10.4); Monocytes # (auto) 0.61 K/uL (0.11-0.59); Monocytes % (auto) 7.5 %; Neutrophils # (auto) 6.23 K/uL (1.4-6.5); Neutrophils % (auto) 76.8 %; Platelet Count 160 K/uL (130-400); RDW Standard Deviation 46.3 fL (36.4-46.3); Red Blood Count 4.39 M/uL (4.7-6.1); White Blood Count 8.12 K/uL (4.8-10.8)
[2021-04-09] MEDS ORDERED: ONDANSETRON INJ 2 MG/ML 2 ML VIAL IV STA (16:15)
[2021-04-09] MEDS ORDERED: KETOROLAC TROMETHAMINE 15 MG/ML VIAL IV ONE (16:15)
[2021-04-09] MEDS ORDERED: fentaNYL citrate 100 MCG/2 ML VIAL IV STA (16:15)
[2021-04-09 16:20] LABS: Alanine Aminotransferase 33 U/L (12-78); Albumin Level 3.5 gm/dl (3.4-5.0); Aspartate Aminotransferase 21 U/L (15-37); BUN Creatinine Ratio 12.1 (10-20); Blood Urea Nitrogen 19 mg/dl (7-18); Calcium 8.8 mg/dl (8.5-10.1); Carbon Dioxide 26 mmol/L (21-32); Chloride 103 mmol/L (98-107); Est GFR (African American) 51.3 ml/min; Est GFR (Non-African American) 44.3 ml/min; Glucose 205 mg/dl (70-99); Lipase 286 U/L (73-393); Potassium 4.3 mmol/L (3.5-5.1); Sodium 139 mmol/L (136-145)
--- NOTE | 2021-04-09 16:20 | Emergency Department Note ---
Impression & Plan Kidney stone on left side, SUE (acute kidney injury) ED Provider Note Provider: Benjie Bolivar MD DATE OF SERVICE: 04/09/2021 CHIEF COMPLAINT: Left flank pain HISTORY OF PRESENT ILLNESS: Patient is a 65-year-old gentleman history of diabetes, hypertension, CAD, and prior kidney stone with history of stenting presenting here today reporting onset of pain that woke him around 3 AM last night. Pain in the left flank region. It slowly moved a little bit more anteriorly today. Denies any other abdominal pain or significant radiation into the left lower quadrant. Denies pain down the leg. Denies any trauma. Denies chest pain or shortness of breath. Reports significant nausea but no actual vomiting. No diarrhea reported. No dysuria or hematuria reported. Patient denies any fever or chills. Patient not take anything for pain prior to arrival. States it feels similar prior history of kidney stones which was last several years ago. REVIEW OF SYSTEMS: A total of 10 review of systems was obtained and negative except as stated above in the HPI. PAST MEDICAL HISTORY: As noted above MEDICATIONS: Reviewed home medication list includes Coumadin SOCIAL HISTORY: Lives at home, current non-smoker PHYSICAL EXAM: GENERAL: alert and oriented seated in chair appears uncomfortable Head: normocephalic and atraumatic EYES: No injection, discharge or icterus. NECK: Trachea midline. LUNGS: Airway patent. No retractions. Breath sounds clear HEART: Regular rate and rhythm. No chest wall tenderness ABDOMEN: Soft and non-tender, without guarding or rebound. Small umbilical he rnia appreciated nontender. BACK:No bilateral flank tenderness. SKIN: Acyanotic, warm, dry, without rashes EXTREMITIES: Without swelling, tenderness or deformity except for the right lower extremity which is in a boot with a history of chronic wound here dressing left in place on exam NEUROLOGICAL: No focal deficits. No aphasia. No facial droop or slurred speech.Ambulatory. EK beats per ventricular paced rhythm without acute ST segment elevation. QTc 475. CONTINUOUS CARDIAC MONITORING: was ordered and showed a heart rate of 60s bpm in ventricular paced rhythm PDMP was checked without noted issue. Patient's laboratory studies and imaging reviewed. Differential includes Renal colic, UTI, appendicitis, diverticulitis, mesenteric ischemia, aortic pathology, infections, inflammatory bowel disease, PUD, biliary pathology, as well as other pathologies. IMPRESSION/MEDICAL DECISION MAKING: Patient resents with left flank pain. Minimal tenderness on exam. Concern for possible nephrolithiasis but has a history of intervention requiring stenting in the past. Denies fever chills or other infectious symptoms. Urine sample was sent to help exclude infection. Basic blood were obtained. Given some symptomatic treatment here with fentanyl, Zofran, and Toradol initially. Patient with benign abdomen otherwise. CT scan of the abdomen pelvis obtained to ascertain possible stone and/or size/location. Given some IV fluids for hydration. Blood work here without significant leukocytosis and borderline anemia. INR is therapeutic at 2.4. Slight creatinine elevation 1.5 from baseline around 1. No evidence of acute hepatitis or pancreatitis. Troponin is undetectable and lower suspicion given this for ACS. Symptoms also do not seem that consistent with acute cardiopulmonary pathology. Blood work not that impressive for infection and more convincing for possible stone given some blood noted in the sample. CT report per radiology shows evidence of a 1.5 x 0.7 left UPJ calculus with resultant left hydronephrosis. Patient's pain and nausea are improving but is unlikely to pass this large stone. Discussed with him and in shared decision- making will plan for further observation here at the hospital. Hospitalist contacted. DIAGNOSIS: Left kidney stone , sue DISPOSITION: hospitalist to evaluate Patient was agreeable with this plan. Past Med/Surg History Medical History CAD S/P percutaneous coronary angioplasty Diabetic peripheral neuropathy associated with type 2 diabetes mellitus Diverticulosis of colon Gout Hydronephrosis of left kidney Intracanalicular fibroadenoma Loss of protective sensation of skin of foot ALISSA (obstructive sleep apnea) Paroxysmal atrial fibrillation Pre-ulcerative corn or callous Prostate cancer (10/14/15) Sciatica Tachy-rodrigo syndrome Ureterolithiasis Surgical History H/O prostate biopsy H/O shoulder surgery History of arthroplasty of right shoulder History of cataract surgery History of hip replacement History of total bilateral knee replacement (TKR) Pacemaker S/P appendectomy S/P CABG x 3 S/P TKR (total knee replacement) (11/04/13) Status post laser lithotripsy of ureteral calculus Status post right foot surgery Family History Unknown Prostate cancer self Father Diabetes Myocardial infarction Denies family history of Ovarian cancer Breast cancer Colorectal cancer Social History Smoking Status: Never smoker Second Hand Exposure: No; Hx Alcohol Use: Yes Alcohol type: beer Alcohol Intake Frequency: Monthly or Less Hx Substance Use: No Preferred Language: [place] Leonean Communication Ability: Effective Visual Impairment: Limited Hearing Ability: Normal Alarm Technician Required: No Beliefs That Will Affect Care: None marital status: / Current Living Situation: Alone current occupational status: retired How many Children do You have: 2 How many Children do You have Comment: local and able to assist as needed Other Information That Helps Us Care for You: No Feels Safe at Home: Yes Safety Concerns: Feels Safe At This Time Childhood Exposure to Second-Hand Smoke: No caffeine: Yes Dental Care, Regularly: Yes Physical Activity Frequency: Does not Exercise Seatbelt Use: sometimes Sunscreen Use: No Assistive Devices: Special Shoe Assistive Devices Comment: boot over R foot wound when walking Allergies Allergies Allergy/AdvReac Type Severity Reaction Status Date / Time No Known Allergies Allergy Verified 04/07/21 09:44 Home Meds Home Medications Medication Instructions Recorded Confirmed aspirin 81 mg tablet,delayed 81 mg PO QAM 06/26/18 04/09/21 release losartan 50 mg tablet 50 mg PO QAM 06/26/18 04/09/21 metoprolol succinate 25 mg 25 mg PO QAM 06/26/18 04/09/21 tablet,extended release 24 hr hydrochlorothiazide 25 mg tablet 25 mg PO DAILY 06/23/19 04/09/21 Carnivora 250 mcg PO BID 01/26/20 04/09/21 Nattokinase Plus 1 tab PO DAILY 01/26/20 04/09/21 coenzyme Q10 200 mg capsule (Co 200 mg PO DAILY 01/26/20 04/09/21 Q-10) tamsulosin 0.4 mg capsule 0.4 mg PO Q OTHER DAY cap 02/18/20 04/09/21 warfarin 5 mg tablet 5 - 10 mg PO UD tab 02/23/20 04/09/21 indomethacin 25 mg capsule 50 mg PO BID PRN 04/08/20 04/09/21 leuprolide 7.5 mg intramuscular 7.5 mg IM DIRECTED 10/04/20 04/09/21 ascorbic acid (vitamin C) 500 mg 500 mg PO BID cap 01/09/21 04/09/21 capsule calcium gluconate 500 mg capsule 500 mg PO ONCE cap 04/07/21 04/09/21 cholecalciferol (vitamin D3) 50 100 mcg PO DAILY cap 04/07/21 04/09/21 mcg (2,000 unit) capsule sitagliptin 50 mg-metformin ER 1 tab PO BID 04/09/21 04/09/21 1,000 mg tablet,extended release 24h mp (Janumet XR) Previous Rx's Medication Instructions Recorded meclizine 25 mg tablet 25 mg PO TID PRN #30 tab 06/24/19 metformin 500 mg tablet,extended 500 mg PO BID #180 tab 08/26/20 release 24 hr atorvastatin 40 mg tablet 40 mg PO HS #90 tab 10/10/20 Results & Data (ED) Vital Signs Vital Signs - 24 hr 04/09/21 15:41 04/09/21 16:35 Temperature 36.4 C L Temperature Source Temporal Artery Scan Pulse Rate 79 67 Pulse Rate [Right Finger] 67 Respiratory Rate 18 20 Respiratory Effort / Characteristics Non-Labored Respiratory Depth Normal Blood Pressure 143/82 H Blood Pressure [Right Arm] 136/79 Blood Pressure Mean 102 Blood Pressure Mean [Right Arm] 98 Blood Pressure Position [Right Arm] Lying Pulse Oximetry 97 93 Oxygen Delivery Method Room Air Room Air Sepsis Recent Fever Within 48 Hours No Sepsis New/Unexplained Change in Mental Status No Sepsis Action Taken by Nursing No Action Required Laboratory Data Result diagrams: 04/09/21 15:54 04/09/21 15:54 Lab Results 04/09/21 04/09/21 04/09/21 Range/Units 15:54 15:54 15:54 WBC 8.12 (4.8-10.8) K/uL RBC 4.39 L (4.7-6.1) M/uL Hgb 13.5 L (14.0-18.0) g/dL Hct 40.0 L (42-52) % MCV 91.1 (80-100) fL MCH 30.8 (25-34) pg MCHC 33.8 (32-36) g/dL RDW Std Deviation 46.3 (36.4-46.3) fL RDW Coeff of Suzy 14.0 (11.5-14.5) % Plt Count 160 (130-400) K/uL MPV 11.3 H (7.4-10.4) fL Immature Gran % (Auto) 0.2 % Neut % (Auto) 76.8 % Lymph % (Auto) 13.3 % Castro % (Auto) 7.5 % Eos % (Auto) 1.8 % Baso % (Auto) 0.4 % Neut # (Auto) 6.23 (1.4-6.5) K/uL Lymph # (Auto) 1.08 L (1.2-3.4) K/uL Castro # (Auto) 0.61 H (0.11-0.59) K/uL Eos # (Auto) 0.15 (0-0.5) K/uL Baso # (Auto) 0.03 (0-0.2) K/uL Immature Gran # (Auto) 0.02 (0.00-0.02) K/uL PT 23.0 H (9.0-12.0) Seconds INR 2.4 H (0.9-1.1) Sodium 139 (136-145) mmol/L Potassium 4.3 (3.5-5.1) mmol/L Chloride 103 (98-107) mmol/L Carbon Dioxide 26 (21-32) mmol/L Anion Gap 10.0 (3-11) BUN 19 H (7-18) mg/dl Creatinine 1.59 H (0.6-1.4) mg/dl Est Cr Clr Drug Dosing 60.0 ml/min Est GFR ( Amer) 51.3 ml/min Est GFR (Non-Af Amer) 44.3 ml/min BUN/Creatinine Ratio 12.1 (10-20) Glucose 205 H (70-99) mg/dl Calcium 8.8 (8.5-10.1) mg/dl Total Bilirubin 0.6 (0.2-1) mg/dl AST 21 (15-37) U/L ALT 33 (12-78) U/L Alkaline Phosphatase 58 (45-117) U/L Troponin I < 0.015 (0-0.045) ng/ml Total Protein 7.6 (6.4-8.2) gm/dl Albumin 3.5 (3.4-5.0) gm/dl Globulin 4.1 H (2.5-4.0) gm/dl Albumin/Globulin Ratio 0.9 (0.9-2) Lipase 286 (73-393) U/L Urine Color Urine Appearance (Clear) Urine pH (4.5-7.5) Ur Specific Elaine (1.000-1.030) Urine Protein (Negative) Urine Glucose (UA) (Negative) Urine Ketones (Negative) Urine Blood (Negative) Urine Nitrite (Negative) Urine Bilirubin (Negative) Urine Urobilinogen (Negative) Ur Leukocyte Esterase (Negative) Urine WBC (Auto) (0-5) /hpf Urine RBC (Auto) (0-4) /hpf U Hyaline Cast (Auto) (0-5) /lpf U Epithel Cells (Auto) (0-5) /lpf Urine Bacteria (Auto) (Negative) 04/09/21 Range/Units 16:28 WBC (4.8-10.8) K/uL RBC (4.7-6.1) M/uL Hgb (14.0-18.0) g/dL Hct (42-52) % MCV (80-100) fL MCH (25-34) pg MCHC (32-36) g/dL RDW Std Deviation (36.4-46.3) fL RDW Coeff of Suzy (11.5-14.5) % Plt Count (130-400) K/uL MPV (7.4-10.4) fL Immature Gran % (Auto) % Neut % (Auto) % Lymph % (Auto) % Castro % (Auto) % Eos % (Auto) % Baso % (Auto) % Neut # (Auto) (1.4-6.5) K/uL Lymph # (Auto) (1.2-3.4) K/uL Castro # (Auto) (0.11-0.59) K/uL Eos # (Auto) (0-0.5) K/uL Baso # (Auto) (0-0.2) K/uL Immature Gran # (Auto) (0.00-0.02) K/uL PT (9.0-12.0) Seconds INR (0.9-1.1) Sodium (136-145) mmol/L Potassium (3.5-5.1) mmol/L Chloride (98-107) mmol/L Carbon Dioxide (21-32) mmol/L Anion Gap (3-11) BUN (7-18) mg/dl Creatinine (0.6-1.4) mg/dl Est Cr Clr Drug Dosing ml/min Est GFR ( Amer) ml/min Est GFR (Non-Af Amer) ml/min BUN/Creatinine Ratio (10-20) Glucose (70-99) mg/dl Calcium (8.5-10.1) mg/dl Total Bilirubin (0.2-1) mg/dl AST (15-37) U/L ALT (12-78) U/L Alkaline Phosphatase (45-117) U/L Troponin I (0-0.045) ng/ml Total Protein (6.4-8.2) gm/dl Albumin (3.4-5.0) gm/dl Globulin (2.5-4.0) gm/dl Albumin/Globulin Ratio (0.9-2) Lipase (73-393) U/L Urine Color Yellow Urine Appearance Clear (Clear) Urine pH 5.5 (4.5-7.5) Ur Specific Elaine 1.020 (1.000-1.030) Urine Protein Trace H (Negative) Urine Glucose (UA) Negative (Negative) Urine Ketones Trace H (Negative) Urine Blood 3+ H (Negative) Urine Nitrite Negative (Negative) Urine Bilirubin Negative (Negative) Urine Urobilinogen Negative (Negative) Ur Leukocyte Esterase Trace H (Negative) Urine WBC (Auto) 5-10 H (0-5) /hpf Urine RBC (Auto) >30 H (0-4) /hpf U Hyaline Cast (Auto) 0 (0-5) /lpf U Epithel Cells (Auto) 0-5 (0-5) /lpf Urine Bacteria (Auto) Negative (Negative) Administered Medications Atorvastatin Calcium (Atorvastatin 40 Mg Tab) 40 mg PO HS JOSEP Stop: 05/09/21 20:59 Last Admin: 04/09/21 22:19 Dose: 40 mg Documented by: [id number] Discontinued Medications Fentanyl Citrate (Fentanyl Citrate 100 Mcg/2 Ml Vial) 50 mcg IV NOW STA Stop: 04/09/21 16:16 Last Admin: 04/09/21 16:34 Dose: 50 mcg Documented by: [id number] Sodium Chloride (Nss) 500 mls @ 999 mls/hr IV .Q31M ONE Stop: 04/09/21 17:10 Last Infusion: 04/09/21 17:28 Dose: 0 mls/hr Documented by: [id number] Admin: 04/09/21 16:57 Dose: 999 mls/hr Documented by: [id number] Sodium Chloride (Nss 1000ml) 1,000 mls @ 999 mls/hr IV .Q1H1M STA Stop: 04/09/21 18:28 Last Infusion: 04/09/21 19:10 Dose: 0 mls/hr Documented by: [id number] Admin: 04/09/21 17:55 Dose: 999 mls/hr Documented by: [id number] Sodium Chloride (Nss 1000ml) 1,000 mls @ 999 mls/hr IV .Q1H1M ONE Stop: 04/09/21 19:16 Last Infusion: 04/09/21 20:15 Dose: 0 mls/hr Documented by: [id number] Admin: 04/09/21 19:10 Dose: 999 mls/hr Documented by: [id number] Insulin Glargine (Insulin Glargine Solostar 100 Units/Ml 3 Ml Pen) 20 units SC ONE ONE Stop: 04/09/21 21:16 Last Admin: 04/09/21 22:19 Dose: 20 units Documented by: [id number] Cosigned by: [id number] Ioversol (Optiray 320 100ml) 94 ml IV ONCE ONE Stop: 04/09/21 16:32 Last Admin: 04/09/21 16:31 Dose: 94 ml Documented by: [id number] Ketorolac Tromethamine (Ketorolac Tromethamine 15 Mg/Ml Vial) 10 mg IV NOW ONE Stop: 04/09/21 16:16 Last Admin: 04/09/21 16:34 Dose: 10 mg Documented by: [id number] Ondansetron HCl (Ondansetron Inj 2 Mg/Ml 2 Ml Vial) 4 mg IV NOW STA Stop: 04/09/21 16:16 Last Admin: 04/09/21 16:34 Dose: 4 mg Documented by: [id number] Imaging Data Radiologist's Impression: Abdomen/Pelvis CT 04/09/21 16:40 CT OF THE ABDOMEN AND PELVIS WITHOUT CONTRAST CLINICAL HISTORY: L flank pain, ?stone COMPARISON STUDY: CT of the abdomen and pelvis February 15, 2019. Renal ultrasound February 16, 2019. TECHNIQUE: Axial images of the abdomen and pelvis were obtained without IV contrast. Images were reviewed in the axial, sagittal, and coronal planes. Automated exposure control was utilized for the study. A dose lowering technique was utilized adhering to the principles of ALARA. FINDINGS: A 1.5 x 0.7 cm left ureteropelvic junction calculus results in mild to moderate left hydronephrosis. Additional small bilateral renal calculi are noted. There is left perinephric and periureteral stranding. No additional ureteral calculi are identified. There is no right hydronephrosis. Evaluation of the remainder of the abdomen and pelvis is suboptimal as unenhanced exam. There is hepatic steatosis. The adrenal glands and pancreas are unremarkable. There is no evidence for a bowel obstruction. There is colonic diverticulosis without evidence for acute diverticulitis. There are brachytherapy seeds within the prostate. There is no lymphadenopathy. Left hip arthroplasty is noted. IMPRESSION: 1. 1.5 x 0.7 cm left ureteropelvic junction calculus which results in mild to moderate left hydronephrosis with perinephric and periureteral stranding. 2. Additional small bilateral renal calculi. ACT 112: Negative or not required by law. Electronically signed by: Peter Britton M.D. 04/09/2021 5:13 PM Discharge Plan Visit Data Chief Complaint: Kidney Stone Stated Complaint: KIDNEY STONE - ABD PAIN - STARTED LAST NIGHT ED Provider: Benjie Bolivar Discharge Problem: Kidney stone on left side, SUE (acute kidney injury) Patient Disposition: Admitted As Inpatient Discharge Instructions Interventions: ED Discharge Assessment Last Done: 04/09/21 20:23
[2021-04-09 16:25] LABS: Albumin Globulin Ratio 0.9 (0.9-2); Alkaline Phosphatase 58 U/L (45-117); Bilirubin,Total 0.6 mg/dl (0.2-1); Globulin 4.1 gm/dl (2.5-4.0); Total Protein 7.6 gm/dl (6.4-8.2); Troponin I < 0.015 ng/ml (0-0.045)
[2021-04-09] MEDS ORDERED: OPTIRAY 320 100ml IV ONE (16:31)
[2021-04-09 16:34] LABS: INR 2.4 (0.9-1.1)
[2021-04-09 16:38] LABS: Appearance Urine Clear (Clear); Bacteria Urine Automated Negative (Negative); Bilirubin Urine Negative (Negative); Blood Urine 3+ (Negative); Cast Urine Automated 0 /lpf (0-5); Color Urine Yellow; Epithelial Cell Urine Auto 0-5 /lpf (0-5); Glucose Urine UA Negative (Negative); Ketones Urine Trace (Negative); Leukocyte Esterase Urine Trace (Negative); Nitrite Urine Negative (Negative); Protein Urine Trace (Negative); RBC Urine Automated >30 /hpf (0-4); Urobilinogen Urine Negative (Negative); pH Urine 5.5 (4.5-7.5)
[2021-04-09] MEDS ORDERED: SODIUM CHLORIDE 0.9% 500 ML IV ONE (16:40)
--- NOTE | 2021-04-09 17:14 | CT Scan Report ---
CT OF THE ABDOMEN AND PELVIS WITHOUT CONTRAST CLINICAL HISTORY: L flank pain, ?stone COMPARISON STUDY: CT of the abdomen and pelvis February 15, 2019. Renal ultrasound February 16, 2019. TECHNIQUE: Axial images of the abdomen and pelvis were obtained without IV contrast. Images were revi ewed in the axial, sagittal, and coronal planes. Automated exposure control was utilized for the oanh dy. A dose lowering technique was utilized adhering to the principles of ALARA. FINDINGS: A 1.5 x 0.7 cm left ureteropelvic junction calculus results in mild to moderate left hydron ephrosis. Additional small bilateral renal calculi are noted. There is left perinephric and periurete ral stranding. No additional ureteral calculi are identified. There is no right hydronephrosis. Evalu ation of the remainder of the abdomen and pelvis is suboptimal as unenhanced exam. There is hepatic s teatosis. The adrenal glands and pancreas are unremarkable. There is no evidence for a bowel obstruct ion. There is colonic diverticulosis without evidence for acute diverticulitis. There are brachythera py seeds within the prostate. There is no lymphadenopathy. Left hip arthroplasty is noted. IMPRESSION: 1. 1.5 x 0.7 cm left ureteropelvic junction calculus which results in mild to moderate left hydroneph rosis with perinephric and periureteral stranding. 2. Additional small bilateral renal calculi. ACT 112: Negative or not required by law. Electronically signed by: Peter Britton M.D. 04/09/2021 5:13 PM
[2021-04-09] MEDS ORDERED: SODIUM CHLORIDE 0.9% 1000ML 1,000 ML IV STA (17:28)
--- NOTE | 2021-04-09 17:32 | History & Physical Report ---
Date of Service April 09, 2021 Assessment & Plan (1) Kidney stone on left side: Plan: NSS 2.5L bolus then LR 100ml/hr Tamsulosin 0.4mg PO daily NPO after midnight Strain all urine however low likelihood of this passing by itself Consult urology (2) SUE (acute kidney injury): Plan: Obstructive uropathy - consult urology IV fluids as above Hold HCTZ and losartan Repeat BMP in AM (3) Diabetes mellitus: Plan: HbA1C 8.6 in 04/05/2021, no need to repeat Hold metformin/sitagliptin Consult pharmacy for glycemic control while inpatient (4) Paroxysmal atrial fibrillation: Plan: Hold warfarin in case of need for intervention, will defer vitamin K reversal unless requested by urology. Dr Garcia contacted. Continue rate control with metoprolol succinate 25mg PO daily (5) Pacemaker: Plan: Placed for tachy-rodrigo syndrome with a. fib (6) Hypertension: Plan: Continue home doses of metoprolol succinate Hold HCTZ and losartan in setting of SUE as above (7) Dyslipidemia: Plan: Continue atorvastatin 40mg PO daily (8) CAD (coronary artery disease): Plan: Triple bypass 2009 Continue ASA, metoprolol, atorvastatin Losartan on hold as above (9) Prostate cancer: Plan: Radiation seeds noted in prostate on imaging. Currently on leuprolide injections Plan: VTE Prophylaxis - warfarin as above Diet - T2DM clear liquid, NPO after midnight Disposition - admit to med/surg Admission and Anticipated Discharge Date Admission Date: April 09, 2021 History of Present Illness Chief Complaint: Left flank pain Primary Care Provider: LAURA Prabhakar Renzo Fitzgerald is a 65 year old male who presents to the ER with left flank p ain. Started at 3am last night, radiation to left lower quadrant of his abdomen, currently pain is mostly resolved after Toradol and Fentanyl given in the ER (pain resolved prior to CT scan). No fevers, chills or dysuria. He has a history of prior kidney stones which felt similar. He takes warfarin for atrial fibrillation - 10mg Mondays and Fridays, 5mg all other days. In the ER CT abdomen/pelvis confirmed 1.5 x 0.7cm left ureteropelvic junction calculus with mild-moderate left hydronephrosis. He was referred to medicine for admission and ongoing management of left kidney stone. Allergies Allergy/AdvReac Type Severity Reaction Status Date / Time No Known Allergies Allergy Verified 04/07/21 09:44 Home Medications Medication Instructions Recorded Confirmed Type aspirin 81 mg tablet,delayed 81 mg PO QAM 06/26/18 04/09/21 History release losartan 50 mg tablet 50 mg PO QAM 06/26/18 04/09/21 History metoprolol succinate 25 mg 25 mg PO QAM 06/26/18 04/09/21 History tablet,extended release 24 hr hydrochlorothiazide 25 mg tablet 25 mg PO DAILY 06/23/19 04/09/21 History meclizine 25 mg tablet 25 mg PO TID PRN #30 tab 06/24/19 04/09/21 Rx Carnivora 250 mcg PO BID 01/26/20 04/09/21 History Nattokinase Plus 1 tab PO DAILY 01/26/20 04/09/21 History coenzyme Q10 200 mg capsule (Co 200 mg PO DAILY 01/26/20 04/09/21 History Q-10) tamsulosin 0.4 mg capsule 0.4 mg PO Q OTHER DAY cap 02/18/20 04/09/21 History warfarin 5 mg tablet 5 - 10 mg PO UD tab 02/23/20 04/09/21 History indomethacin 25 mg capsule 50 mg PO BID PRN 04/08/20 04/09/21 History metformin 500 mg tablet,extended 500 mg PO BID #180 tab 08/26/20 04/09/21 Rx release 24 hr leuprolide 7.5 mg intramuscular 7.5 mg IM DIRECTED 10/04/20 04/09/21 History atorvastatin 40 mg tablet 40 mg PO HS #90 tab 10/10/20 04/09/21 Rx ascorbic acid (vitamin C) 500 mg 500 mg PO BID cap 01/09/21 04/09/21 History capsule calcium gluconate 500 mg capsule 500 mg PO ONCE cap 04/07/21 04/09/21 History cholecalciferol (vitamin D3) 50 100 mcg PO DAILY cap 04/07/21 04/09/21 History mcg (2,000 unit) capsule sitagliptin 50 mg-metformin ER 1 tab PO BID 04/09/21 04/09/21 History 1,000 mg tablet,extended release 24h mp (Janumet XR) Past Med/Surg History Medical History CAD S/P percutaneous coronary angioplasty Diabetic peripheral neuropathy associated with type 2 diabetes mellitus Diverticulosis of colon Gout Hydronephrosis of left kidney Intracanalicular fibroadenoma Loss of protective sensation of skin of foot ALISSA (obstructive sleep apnea) Paroxysmal atrial fibrillation Pre-ulcerative corn or callous Prostate cancer (10/14/15) Sciatica Tachy-rodrigo syndrome Ureterolithiasis Surgical History H/O prostate biopsy H/O shoulder surgery History of arthroplasty of right shoulder History of cataract surgery History of hip replacement History of total bilateral knee replacement (TKR) Pacemaker S/P appendectomy S/P CABG x 3 S/P TKR (total knee replacement) (11/04/13) Status post laser lithotripsy of ureteral calculus Status post right foot surgery Family History Unknown Prostate cancer self Father Diabetes Myocardial infarction Denies family history of Ovarian cancer Breast cancer Colorectal cancer Social History Smoking Status: Never smoker Second Hand Exposure: No; Hx Alcohol Use: Yes Alcohol type: beer Alcohol Intake Frequency: Monthly or Less Hx Substance Use: No Preferred Language: Urdu Communication Ability: Effective Visual Impairment: Limited Hearing Ability: Normal 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 Beliefs That Will Affect Care: None marital status: / Current Living Situation: Alone current occupational status: retired How many Children do You have: 2 How many Children do You have Comment: local and able to assist as needed Other Information That Helps Us Care for You: No Feels Safe at Home: Yes Safety Concerns: Feels Safe At This Time Childhood Exposure to Second-Hand Smoke: No caffeine: Yes Dental Care, Regularly: Yes Physical Activity Frequency: Does not Exercise Seatbelt Use: sometimes Sunscreen Use: No Assistive Devices: Special Shoe Assistive Devices Comment: boot over R foot wound when walking Review of Systems Review of Systems: All systems reviewed & are unremarkable except as noted in HPI & below Physical Exam Constitutional: WD/WN, vitals as above + obese Eyes: + anicteric sclerae; normal pupil size ENMT: external ear and nose normal, oropharynx normal Neck: normal visual inspection Respiratory: normal respiratory effort, lungs clear to auscultation Cardiovascular: RRR, no murmur, no edema Gastrointestinal (Abdomen): normal bowel sounds, soft, nontender, no hepatosplenomegaly Musculoskeletal: no cyanosis or clubbing, extremities motor strength 5/5 Skin: no rashes, warm and dry Neurologic: moves all extremities and awake; no focal motor deficits and not confused Psychiatric: A+Ox3, euthymic affect Genitourinary: no CVA tenderness Results & Data Results & Data ([facility]) Vital Signs (Past 12 Hours) Vital Signs Temp Pulse Pulse Resp BP BP Pulse Ox 04/09/21 16:35 67 67 20 136/79 93 04/09/21 15:41 36.4 C L 79 18 143/[address] OF THE ABDOMEN AND PELVIS WITHOUT CONTRAST FINDINGS: A 1.5 x 0.7 cm left ureteropelvic junction calculus results in mild to moderate left hydronephrosis. Additional small bilateral renal calculi are noted. There is left perinephric and periureteral stranding. No additional ureteral calculi are identified. There is no right hydronephrosis. Evaluation of the remainder of the abdomen and pelvis is suboptimal as unenhanced exam. There is hepatic steatosis. The adrenal glands and pancreas are unremarkable. There is no evidence for a bowel obstruction. There is colonic diverticulosis without evidence for acute diverticulitis. There are brachytherapy seeds within the prostate. There is no lymphadenopathy. Left hip arthroplasty is noted. IMPRESSION: 1. 1.5 x 0.7 cm left ureteropelvic junction calculus which results in mild to m oderate left hydronephrosis with perinephric and periureteral stranding. 2. Additional small bilateral renal calculi. Medications Administered ER Medications Given: Ondansetron 4mg IV Toradol 10mg IV Fentanyl 50 mcg IV NSS 500 ml bolus ECG Indication: abdominal pain Rate (beats per minute): 61 Rhythm: atrial fibrillation Findings: + paced rhythm (ventricular) Comparison ECG Date: from (Aug 10, 2020) Change: no significant change Code Status & VTE Plan Code Status Full VTE Prophylaxis Plan VTE Prophylaxis will be ordered: No PG Care Time/CCT Total # of Minutes Spent Total Time Spent with Patient: Total time spent is greater than 50% in coordination of care (as documented) at patient's floor/unit and/or counseling patient: Coding Level of Care Code 28601 Initial Inpt Care Lvl 2 Diagnoses Kidney stone on left side N20.0 SUE (acute kidney injury) N17.9 Diabetes mellitus E11.9 Paroxysmal atrial fibrillation I48.0 Pacemaker Z95.0 Hypertension I10 Hypertension type: essential hypertension Dyslipidemia E78.5 CAD (coronary artery disease) I25.10 Prostate cancer C61 (1) Hypertension Hypertension type: essential hypertension Qualified Code(s): I10 - Essential (primary) hypertension
[2021-04-09] MEDS ORDERED: SODIUM CHLORIDE 0.9% 1000ML 1,000 ML IV ONE (18:16)
[2021-04-09] MEDS ORDERED: HYDROmorphone INJ 0.5 MG/0.5 ML SYR IV PRN (20:49)
[2021-04-09] MEDS ORDERED: PHARMACY GLYCEMIC MGMT CONSULT PRN (20:49)
[2021-04-09] MEDS ORDERED: ACETAMINOPHEN 325 MG TAB PO PRN (20:49)
[2021-04-09] MEDS ORDERED: oxyCODONE HCL IR 5 MG TAB (IMMEDIATE RELEASE) PO PRN (20:49)
[2021-04-09] MEDS ORDERED: ONDANSETRON INJ 2 MG/ML 2 ML VIAL IV PRN (20:49)
[2021-04-09] MEDS ORDERED: GLUCOSE 10 TABS/TUBE PO PRN (21:00)
[2021-04-09] MEDS ORDERED: DEXTROSE 50% 50 ML SYRINGE IV PRN (21:00)
[2021-04-09] MEDS ORDERED: GLUCOSE 40% GEL 15 GM TUBE PO PRN (21:00)
[2021-04-09] MEDS ORDERED: CARBOHYDRATES FOR HYPOGLYCEMIA PO PRN (21:00)
[2021-04-09] MEDS ORDERED: GLUCAGON FOR INJ 1 MG VIAL IM PRN (21:00)
--- NOTE | 2021-04-09 21:07 | Pharmacy Report ---
Pharmacy Glycemic Short Note 2 - Date of Service April 09, 2021 - Glycemic Short BSG Results (Last 24 hours): 04/09/21 15:54 Glucose 205 H OUTPATIENT ANTIDIABETIC REGIMEN: * Janumet XR - recent change from metformin monotherapy * HbA1c: 8.6% (04/05/21) ASSESSMENT: * RH is a 65 year old male with type 2 DM, who presents with left flank pain. Subsequently found to have kidney stone with likely postrenal SUE. * SCr: 1.59 mg/dL (baseline of 1.01 mg/dL) * BSG on presentation of 205 mg/dL, 199 mg/dL this evening * Ordered clear liquid diet today and will be NPO after midnight * Will order one-time basal this evening with q4h Novolog overnight PLAN FOR INPATIENT GLYCEMIC CONTROL: * Hold outpatient oral diabetes medications * Basal insulin * Lantus 20 units SQ x 1 * Reassess in AM * Bolus insulin * NovoLog per scale ACHS or Q6hrs while NPO * Goal Range: Low 110 mg/dL - High 140 mg/dL * Correction Factor: 20 mg/dL/unit * Nutritional / Prandial insulin per carb ratio of 1 unit per 7 grams CHO consumed PLAN FOR DISCHARGE: * Patient just recently switched from metformin to Janumet XR based on elevated A1c * Reasonable to continue current regimen - A1c should be rechecked in 3 months
[2021-04-09] MEDS ORDERED: INSULIN GLARGINE SOLOSTAR 100 UNITS/ML 3 ML PEN SC ONE (21:15)
[2021-04-09] MEDS: ATORVASTATIN 40 MG TAB PO SCH (22:19)
[2021-04-10] MEDS: INSULIN ASPART 100 UNITS/ML 3 ML PEN SC SCH ×6 (00:31→21:02)
[2021-04-10] MEDS: LACTATED RINGER'S 1,000 ML IV SCH ×2 (06:44→12:01)
[2021-04-10] MEDS: ASPIRIN 81 MG ECTAB PO SCH (08:11)
[2021-04-10] MEDS: METOPROLOL SUCC 25MG EXT REL TAB PO SCH (08:14)
[2021-04-10] MEDS: TAMSULOSIN HCL 0.4 MG CAP PO SCH (08:14)
--- NOTE | 2021-04-10 08:50 | Electrocardiogram Report ---
Test Reason : Blood Pressure : / mmHG Vent. Rate : 061 BPM Atrial Rate : 063 BPM P-R Int : 000 ms QRS Dur : 178 ms QT Int : 472 ms P-R-T Axes : 000 -67 087 degrees QTc Int : 475 ms Ventricular-paced rhythm Abnormal ECG When compared with ECG of 10-AUG-2020 15:35, Vent. rate has decreased BY 2 BPM Confirmed by Jimbo Olivier ([id number]) on 04/10/2021 8:49:32 AM Referred By: REFERRED SELF Confirmed By:Jimbo Olivier
[2021-04-10] MEDS ORDERED: NON-FORMULARY MEDICATION (Coenzyme Q10 [Co Q-10] 200 mg capsule) PO SCH (09:00)
--- NOTE | 2021-04-10 10:02 | Anesthesiology Consultation ---
Date of Service April 10, 2021 Assessment & Plan Chart Review Chart Review: Acceptable Risk for Surgery and Patient NOT seen in Pre Admission Testing Consults Requested none ASA ASA4 Proposed Anesthesia Anesthesia Type: General History Surgery Operation Date: 04/10/21 10:30 Proposed Procedures p Cystoscopy(Left) - Claude Garcia DO Height/Weight Height: 6 ft Weight: 119.5 kg Allergies Allergy/AdvReac Type Severity Reaction Status Date / Time No Known Allergies Allergy Verified 04/07/21 09:44 Medications Home Medications Medication Instructions Recorded Confirmed Last Taken aspirin 81 mg tablet,delayed 81 mg PO QAM 06/26/18 04/09/21 04/09/21 release losartan 50 mg tablet 50 mg PO QAM 06/26/18 04/09/21 04/09/21 metoprolol succinate 25 mg 25 mg PO QAM 06/26/18 04/09/21 04/09/21 tablet,extended release 24 hr hydrochlorothiazide 25 mg tablet 25 mg PO DAILY 06/23/19 04/09/21 04/09/21 meclizine 25 mg tablet 25 mg PO TID PRN #30 tab 06/24/19 04/09/21 07/01/20 Carnivora 250 mcg PO BID 01/26/20 04/09/21 04/09/21 Nattokinase Plus 1 tab PO DAILY 01/26/20 04/09/21 04/09/21 coenzyme Q10 200 mg capsule (Co 200 mg PO DAILY 01/26/20 04/09/21 04/09/21 Q-10) tamsulosin 0.4 mg capsule 0.4 mg PO Q OTHER DAY cap 02/18/20 04/09/21 12/28/20 warfarin 5 mg tablet 5 - 10 mg PO UD tab 02/23/20 04/09/21 12/28/20 indomethacin 25 mg capsule 50 mg PO BID PRN 04/08/20 04/09/21 04/08/21 metformin 500 mg tablet,extended 500 mg PO BID #180 tab 08/26/20 04/09/21 04/09/21 release 24 hr leuprolide 7.5 mg intramuscular 7.5 mg IM DIRECTED 10/04/20 04/09/21 Unknown atorvastatin 40 mg tablet 40 mg PO HS #90 tab 10/10/20 04/09/21 04/08/21 ascorbic acid (vitamin C) 500 mg 500 mg PO BID cap 01/09/21 04/09/21 04/09/21 capsule calcium gluconate 500 mg capsule 500 mg PO ONCE cap 04/07/21 04/09/21 04/09/21 cholecalciferol (vitamin D3) 50 100 mcg PO DAILY cap 04/07/21 04/09/21 04/09/21 mcg (2,000 unit) capsule sitagliptin 50 mg-metformin ER 1 tab PO BID 04/09/21 04/09/21 04/09/21 1,000 mg tablet,extended release 24h mp (Janumet XR) Active Medications Generic Name Dose Route Start Last Admin Trade Name Freq PRN Reason Stop Dose Admin Aspirin 81 mg 04/10/21 09:00 04/10/21 08:11 Aspirin 81 Mg Ectab PO 05/10/21 08:59 Not Given QAM JOSEP Atorvastatin Calcium 40 mg 04/09/21 21:00 04/09/21 22:19 Atorvastatin 40 Mg Tab PO 05/09/21 20:59 40 mg HS JOSEP Administration Hydromorphone HCl 0.5 mg 04/09/21 20:49 04/10/21 04:05 Hydromorphone Inj 0.5 Mg/0.5 Ml Syr IV 04/23/21 20:48 0.5 mg Q4H PRN Administration Pain Lactated Ringer's 1,000 mls @ 125 mls/hr 04/10/21 06:30 04/10/21 06:44 Lr IV 05/10/21 06:29 125 mls/hr .Q8H JOSEP Administration Insulin Aspart 0 units 04/10/21 00:30 04/10/21 05:36 Insulin Aspart 100 Units/Ml 3 Ml Pen SC 05/10/21 00:29 1 units Q6 JOSEP Administration Metoprolol Succinate 25 mg 04/10/21 09:00 04/10/21 08:14 Metoprolol Succ 25mg Ext Rel Tab PO 05/10/21 08:59 25 mg QAM JOSEP Administration Tamsulosin HCl 0.4 mg 04/10/21 09:00 04/10/21 08:14 Tamsulosin Hcl 0.4 Mg Cap PO 05/10/21 08:59 0.4 mg QAM JOSEP Administration Past Medical History Medical History CAD S/P percutaneous coronary angioplasty Diabetic peripheral neuropathy associated with type 2 diabetes mellitus Diverticulosis of colon Gout Hydronephrosis of left kidney Intracanalicular fibroadenoma Loss of protective sensation of skin of foot ALISSA (obstructive sleep apnea) Paroxysmal atrial fibrillation Pre-ulcerative corn or callous Prostate cancer (10/14/15) Sciatica Tachy-rodrigo syndrome Ureterolithiasis Exercise / Class Metabolic Activity III < 4 Walking/Shop/Light housework Past Family History Family History Unknown Prostate cancer self Father Diabetes Myocardial infarction Denies family history of Ovarian cancer Breast cancer Colorectal cancer Past Surgical History Surgical History H/O prostate biopsy H/O shoulder surgery History of arthroplasty of right shoulder History of cataract surgery bilateral History of hip replacement History of total bilateral knee replacement (TKR) Pacemaker S/P appendectomy S/P CABG x 3 S/P TKR (total knee replacement) (11/04/13) Status post laser lithotripsy of ureteral calculus 02/2019. LMA #5. No issues. Status post right foot surgery Past Anesthesia History No Hx of Anesthesia Complications and No Family Hx of Anesthesia Complications History of PONV No Hx of PONV and No Hx of Motion Sickness Social History Smoking Status: Never smoker Hx Alcohol Use: Yes Alcohol type: beer alcohol intake frequency: holidays/special occasions only Hx Substance Use: No substance use type: does not use Physical Exam Vital Signs Last Vital Signs Temp 37.2 C 04/10/21 07:18 Pulse 61 04/10/21 07:18 Resp 18 04/10/21 07:18 BP 121/70 04/10/21 07:18 Pulse Ox 95 04/10/21 07:18 Testing Laboratory Results 04/09/21 15:54 04/09/21 15:54 PT 23.0 Seconds (9.0-12.0) H 04/09/21 15:54 INR 2.4 (0.9-1.1) H 04/09/21 15:54 Urine Color Yellow 04/09/21 16:28 Urine Appearance Clear (Clear) 04/09/21 16:28 Urine pH 5.5 (4.5-7.5) 04/09/21 16:28 Ur Specific [place] 1.020 (1.000-1.030) 04/09/21 16:28 Urine Protein Trace (Negative) H 04/09/21 16:28 Urine Glucose (UA) Negative (Negative) 04/09/21 16:28 Urine Ketones Trace (Negative) H 04/09/21 16:28 Urine Nitrite Negative (Negative) 04/09/21 16:28 Ur Leukocyte Esterase Trace (Negative) H 04/09/21 16:28 Urine WBC (Auto) 5-10 /hpf (0-5) H 04/09/21 16:28 Urine RBC (Auto) >30 /hpf (0-4) H 04/09/21 16:28 U Hyaline Cast (Auto) 0 /lpf (0-5) 04/09/21 16:28 U Epithel Cells (Auto) 0-5 /lpf (0-5) 04/09/21 16:28 Urine Bacteria (Auto) Negative (Negative) 04/09/21 16:28 04/10/21 04/09/21 05:31 23:41 POC Glucose 161 H 163 H Electrocardiogram Date: 04/09/21 V -paced at 61 Echocardiogram Date: 05/05/20 EF: 52% LV Function: normal RWMA: + none Other Findings: + atrial enlargement (LA severely enlarged) and + LVH (mild) Valvular Disease: + MR (mild) TR-moderate Stress Test Date: 12/03/17 Type: exercise Findings: + WNL
[2021-04-10] MEDS ORDERED: PROPOFOL IV EMULSION 10 MG/ML 20 ML VIAL IV ONE ×2 (10:12→10:41)
[2021-04-10] MEDS ORDERED: fentaNYL citrate 100 MCG/2 ML VIAL ONE (10:12)
[2021-04-10] MEDS ORDERED: LIDOCAINE 2% 2 ML VIAL/AMP(20MG/ML) INFIL ONE (10:12)
[2021-04-10] MEDS ORDERED: MIDAZOLAM HCL 1 MG/ML 2ML VIAL ONE (10:12)
[2021-04-10] MEDS ORDERED: ONDANSETRON INJ 2 MG/ML 2 ML VIAL ONE (10:12)
[2021-04-10] MEDS ORDERED: GLYCOPYRROLATE 0.2 MG/ML VIAL ONE (10:15)
--- NOTE | 2021-04-10 10:16 | Urology Consultation ---
Date of Consultation April 10, 2021 Assessment & Plan (1) Kidney stone on left side: (2) SUE (acute kidney injury): (3) Prostate cancer: Patient's complicated medical and surgical histories all reviewed and summarized above. Patient formally of Dr. Ramsay. Has large stone disease. V reji large obstructing stone on the left. Considerable hydronephrosis. Patient had considerable SUE on admission. Was dealing with significant pain. Patient has considerable major comorbidities with end organ damage diabetic issues. Risks and benefits discussed at length for procedure. These include bleeding, infection, injury to surrounding tissues or organs, and risks associated with anesthesia. Patient states understanding and agrees to proceed. Will sign consent and schedule. Plan for cystoscopy and left stent and possible treatment History of Present Illness Attending Physician: Rhiannon Bundy MD History of Present Illness New consultation for patient with stone, discomfort, obstruction, and ill feelings. Patient developed sudden onset of pain into flank going down and radiating into groin and back in waves comes and goes. Can be severe at times. Patient formally of Dr. Ramsay. History of high risk advanced prostate cancer with biochemical recurrence. Most recent PSA 0.03. Patient has had hematuria and obstruction issues in the past. His INR was supratherapeutic. Patient has multiple significant comorbidities. Patient has a well-known history of stone disease. Has had previous interventions. Has a large obstructing stone on the left. Bilateral stone disease. Discussed and reviewed patient's family history for any history of stone disease. Also, discussed patient's medical surgery history especially related to any history of urinary issues or stone disease. Patient was admitted and is undergoing observation. Allergies Allergy/AdvReac Type Severity Reaction Status Date / Time No Known Allergies Allergy Verified 04/07/21 09:44 Home Medications Medication Instructions Recorded Confirmed Type aspirin 81 mg tablet,delayed 81 mg PO QAM 06/26/18 04/09/21 History release losartan 50 mg tablet 50 mg PO QAM 06/26/18 04/09/21 History metoprolol succinate 25 mg 25 mg PO QAM 06/26/18 04/09/21 History tablet,extended release 24 hr hydrochlorothiazide 25 mg tablet 25 mg PO DAILY 06/23/19 04/09/21 History meclizine 25 mg tablet 25 mg PO TID PRN #30 tab 06/24/19 04/09/21 Rx Carnivora 250 mcg PO BID 01/26/20 04/09/21 History Nattokinase Plus 1 tab PO DAILY 01/26/20 04/09/21 History coenzyme Q10 200 mg capsule (Co 200 mg PO DAILY 01/26/20 04/09/21 History Q-10) tamsulosin 0.4 mg capsule 0.4 mg PO Q OTHER DAY cap 02/18/20 04/09/21 History warfarin 5 mg tablet 5 - 10 mg PO UD tab 02/23/20 04/09/21 History indomethacin 25 mg capsule 50 mg PO BID PRN 04/08/20 04/09/21 History metformin 500 mg tablet,extended 500 mg PO BID #180 tab 08/26/20 04/09/21 Rx release 24 hr leuprolide 7.5 mg intramuscular 7.5 mg IM DIRECTED 10/04/20 04/09/21 History atorvastatin 40 mg tablet 40 mg PO HS #90 tab 10/10/20 04/09/21 Rx ascorbic acid (vitamin C) 500 mg 500 mg PO BID cap 01/09/21 04/09/21 History capsule calcium gluconate 500 mg capsule 500 mg PO ONCE cap 04/07/21 04/09/21 History cholecalciferol (vitamin D3) 50 100 mcg PO DAILY cap 04/07/21 04/09/21 History mcg (2,000 unit) capsule sitagliptin 50 mg-metformin ER 1 tab PO BID 04/09/21 04/09/21 History 1,000 mg tablet,extended release 24h mp (Janumet XR) Patient History Medical History CAD S/P percutaneous coronary angioplasty Diabetic peripheral neuropathy associated with type 2 diabetes mellitus Diverticulosis of colon Gout Hydronephrosis of left kidney Intracanalicular fibroadenoma Loss of protective sensation of skin of foot ALISSA (obstructive sleep apnea) Paroxysmal atrial fibrillation Pre-ulcerative corn or callous Prostate cancer (10/14/15) Sciatica Tachy-rodrigo syndrome Ureterolithiasis Surgical History H/O prostate biopsy H/O shoulder surgery History of arthroplasty of right shoulder History of cataract surgery bilateral History of hip replacement History of total bilateral knee replacement (TKR) Pacemaker S/P appendectomy S/P CABG x 3 S/P TKR (total knee replacement) (11/04/13) Status post laser lithotripsy of ureteral calculus 02/2019. LMA #5. No issues. Status post right foot surgery Family History Unknown Prostate cancer self Father Diabetes Myocardial infarction Denies family history of Ovarian cancer Breast cancer Colorectal cancer Social History Smoking Status: Never smoker Second Hand Exposure: No; Hx Alcohol Use: Yes Alcohol type: beer Alcohol Intake Frequency: Monthly or Less Hx Substance Use: No Preferred Language: Welsh Communication Ability: Effective Visual Impairment: Limited Hearing Ability: Normal Visualizer Required: No Beliefs That Will Affect Care: None marital status: / Current Living Situation: Alone current occupational status: retired How many Children do You have: 2 How many Children do You have Comment: local and able to assist as needed Other Information That Helps Us Care for You: No Feels Safe at Home: Yes Safety Concerns: Feels Safe At This Time Childhood Exposure to Second-Hand Smoke: No caffeine: Yes Dental Care, Regularly: Yes Physical Activity Frequency: Does not Exercise Seatbelt Use: sometimes Sunscreen Use: No Assistive Devices: Glasses and Special Shoe Assistive Devices Comment: boot over R foot wound when walking Review of Systems Review of Systems: All systems reviewed & are unremarkable except as noted in HPI & below Physical Exam Physical Exam: General: Alert and oriented x 3 in no acute distress. Patient is well nourished and well kept. HEENT: Normocephalic Atraumatic. Inspection normal. Cranial Nerves 2-12 Grossly intact. Nares are clear. Neck is supple. Normal inspection of face. Normal inspection of neck. Neurologic: No deficits on inspection. Baseline for motor function and sensory. Psychologic: Normal affect. Respiratory: Nonlabored. No use of accessory muscles. No tachypnea or dyspnea. Cardiovascular: No tachycardia Skin: [place] and Dry. No rashes or visible lesions. Extremities: Moving without issues. No motor deficits on inspection Lymphatics: No edema Abdomen: Soft Non-distended. No acites. No rebound or guarding. Results & Data ([facility]) Vital Signs (Past 12 Hours) Vital Signs Temp Pulse Resp BP Pulse Ox 04/10/21 07:18 37.2 C 61 18 121/70 95 04/09/21 23:40 36.9 C 71 16 115/68 96 PG Care Time/CCT Total # of Minutes Spent Total Time Spent with Patient: Total time spent is greater than 50% in coordination of care (as documented) at patient's floor/unit and/or counseling patient: Coding Level of Care Code 50314 Inpt Consult Level 5 Diagnoses Kidney stone on left side N20.0 SUE (acute kidney injury) N17.9 Prostate cancer C61
[2021-04-10] MEDS ORDERED: FLUMAZENIL 0.1 MG/1 ML 10 ML VIAL IV PRN (10:26)
[2021-04-10] MEDS ORDERED: PROMETHAZINE HCL 12.5 MG in SODIUM CHLORIDE 0.9% 50 ML IV PRN (10:26)
[2021-04-10] MEDS ORDERED: fentaNYL citrate 100 MCG/2 ML VIAL IV PRN (10:26)
[2021-04-10] MEDS ORDERED: ONDANSETRON INJ 2 MG/ML 2 ML VIAL IV PRN (10:26)
[2021-04-10] MEDS ORDERED: NALOXONE HCL 0.4 MG/1 ML VIAL/CARP IV PRN (10:26)
[2021-04-10] MEDS ORDERED: LABETALOL HCL IV 5 MG/ML 20ML IV PRN (10:26)
[2021-04-10] MEDS ORDERED: ATROPINE SULFATE 0.1 MG/ML 10ML SYR IV PRN (10:26)
[2021-04-10] MEDS ORDERED: ePHEDrine sulfate 50 MG/ML AMP IV PRN (10:26)
--- NOTE | 2021-04-10 10:56 | Operative Report ---
PG Post Operative Report Pre & Post Diagnosis Large obstructing Left Ureteral stone Same Operation Date: 04/10/21 10:30 <No data on this case meets the specified criteria> I identified the patient and participated in the time-out.: Yes Procedure Cystoscopy with left retrograde pyelogram and stent placement. Operation Date: 04/10/21 10:30 <No data on this case meets the specified criteria> Surgeon Claude Garcia, II, DO Floor Covering Printer None Estimated Blood Loss 1 Findings Consistent with Post-Op Diagnosis Stent placed in good position. Specimens None Drains 6 Fr Multilength Anesthesia Type MAC Complications none Disposition Disposition: Recovery Room Indications Patient with obstruction. Risks and benefits discussed at length. Description of Procedure Patient was consented and brought back to the operating room. Patient was placed under anesthesia in the supine position and moved to the dorsal lithotomy position. Patient was prepped and draped in the regular sterile fashion. A time out was completed. A 30degree Cystoscope was placed into the bladder and the entire bladder was examined. The UO's were identified. The UO was cannulized with a catheter and a retrograde pyelogram was completed. A wire was then placed. With the wire in place, a 6 Fr Double J stent was placed. It was confirmed with fluoroscopy. With the stent in place, the bladder was emptied. The scope was removed. The patient was cleaned, aroused from anesthesia, and transferred to the pacu in stable condition having tolerated the procedure well with no complications. I was present and participated in all aspects of the procedure. The patient will be monitored in the PACU until transferred. Will need set up for stone treatment in next 5-10 days. I attest to the content of the Intraoperative Record and any orders documented therein. Any exceptions are noted below.
--- NOTE | 2021-04-10 11:07 | Fluoroscopy Report ---
INTRAOPERATIVE RADIOGRAPHS CLINICAL HISTORY: Left-sided retrograde pyelogram and ureteral stent placement. Fluoroscopy time: 21 seconds. FINDINGS: 4 spot fluoroscopic views of the left abdomen are correlated with abdominal CT dated 04/09/20. The initial image shows a wire in the left renal collecting system. Hydronephrosis is shown follo wing contrast administration. The final 2 images show the proximal and distal ends of a ureteral sten t in appropriate position. IMPRESSION: Intraoperative images from a left ureteral stent placement procedure as above. Electronically signed by: Tommy Hoover M.D. 04/10/2021 11:05 AM
[2021-04-10] MEDS ORDERED: DIATRIZOATE MEGLUMINE 30% 100ML VIAL INSTIL PRN (11:08)
--- NOTE | 2021-04-10 11:39 | Anesthesiology Progress Note ---
Date of Service April 10, 2021 Anesthesia Post Procedure Vital Signs Vital Signs: Temp Pulse Pulse Pulse Resp BP BP 04/10/21 11:25 36.4 C L 60 12 123/78 04/10/21 11:15 62 18 125/78 04/10/21 11:08 36.0 C L 60 18 149/62 H 04/10/21 07:18 37.2 C 61 18 121/70 04/09/21 23:40 36.9 C 71 16 115/68 04/09/21 20:52 36.5 C 65 16 143/80 H 04/09/21 18:13 60 18 107/62 04/09/21 16:35 67 67 20 136/79 04/09/21 15:41 36.4 C L 79 18 143/82 H Pulse Ox 04/10/21 11:25 96 04/10/21 11:15 97 04/10/21 11:08 95 04/10/21 07:18 95 04/09/21 23:40 96 04/09/21 20:52 100 04/09/21 18:13 97 04/09/21 16:35 93 04/09/21 15:41 97 Pain Intensity Left Flank: Pain Intensity: 2 Transfer of Care Handoff Completed per policy Notes Mental Status: alert / awake / arousable Patient Amnestic to Procedure: Yes Nausea / Vomiting: adequately controlled Pain: adequately controlled Airway Patency, RR, SpO2: stable & adequate BP & HR: stable & adequate Hydration State: stable & adequate Anesthetic Complications: no major complications apparent
[2021-04-10] MEDS ORDERED: Nursing to Pharmacy Communication SCH (12:00)
[2021-04-10] MEDS ORDERED: PHENAZOPYRIDINE HCL 200 MG TAB PO PRN (13:59)
[2021-04-10] MEDS ORDERED: PHENAZOPYRIDINE HCL 200 MG TAB PO STA (13:59)
[2021-04-10] MEDS ORDERED: CALCIUM GLUCONATE 500 MG PO SCH (14:00)
--- NOTE | 2021-04-10 14:01 | Hospitalist Progress Note ---
Date of Service April 10, 2021 Assessment & Plan (1) Kidney stone on left side: Plan: With large obstructing left-sided ureterolithiasis-stone measuring 1.5 x 0.7 cm with mild to moderate left hydronephrosis With acute kidney injury No evidence of infection on urinalysis Now status post stent placement by urology on 04/10 Needs follow-up in the near future for definitive stone management Appreciate urology management Continue tamsulosin 0.4mg PO daily -Add on Pyridium for dysuria -Discontinue IV fluids Follow BMP in the morning Okay to continue Coumadin-watch for hematuria and associated urinary retention -Hold vitamin D and calcium supplements (2) SUE (acute kidney injury): Plan: Obstructive uropathy -now status post stent placement IV fluids were given as above and will now discontinue Continue to hold HCTZ and losartan Repeat BMP in AM-patient agreeable now to having labs drawn in the morning (3) Diabetes mellitus: Plan: HbA1C 8.6 in 04/05/2021, no need to repeat Glucose well controlled here Continue to hold metformin/sitagliptin Consult pharmacy for glycemic control while inpatient-giving Lantus and NovoLog (4) Paroxysmal atrial fibrillation: Plan: With chronic atrial fibrillation-follows with [facility] cardiology, status post PPM for tachybradycardia syndrome With V paced rhythm on admission on ECG Continue rate control with metoprolol succinate 25mg PO daily His Coumadin was held for 1 dose on 04/09 on admission, but can restart today Follow INR in the morning If develops significant hematuria, would be okay to hold or reverse Coumadin (5) Pacemaker: Plan: Placed for tachy-rodrigo syndrome with joyce hull (6) Hypertension: Plan: Blood pressures are controlled Continue home doses of metoprolol succinate Hold HCTZ and losartan in setting of SUE as above (7) Dyslipidemia: Plan: Continue atorvastatin 40mg PO daily (8) CAD (coronary artery disease): Plan: Status post triple bypass 2009 No acute issues Continue ASA, metoprolol, atorvastatin Losartan on hold as above (9) Prostate cancer: Plan: Radiation seeds noted in prostate on imaging. 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 He is having pain with urination that feels like knives stabbing him. He has a stent in place now and is making urine that has some blood in it. He refused to get labs this morning as he was concerned about the cost and whether it would be covered by insurance. Denies chest pains or shortness of breath. Review of Systems Review of Systems: All systems reviewed & are unremarkable except as noted in HPI & below Physical Exam Constitutional: WD/WN, vitals as above Eyes: + anicteric sclerae Neck: trachea midline, no thyromegaly Respiratory: normal respiratory effort, lungs clear to auscultation Cardiovascular: RRR, no murmur, no edema Chest (Breasts): Chest: normal inspection of chest Gastrointestinal (Abdomen): normal bowel sounds, soft, nontender, no hepatosplenomegaly Musculoskeletal: Extremities: extremities normal to inspection; no cyanosis and no clubbing Skin: no rashes, warm and dry With small superficial ulceration on plantar surface of right MTP, no surrounding erythema, scant purulent drainage Neurologic: moves all extremities and awake; no focal motor deficits Psychiatric: A+Ox3, euthymic affect Lymphatic: no lymphedema Results & Data Results & Data ([facility]) Vital Signs (Past 12 Hours) Vital Signs Temp Pulse Pulse Resp BP Pulse Ox 04/10/21 13:45 36.5 C 67 18 146/88 H 96 04/10/21 12:34 36.5 C 64 19 136/77 92 04/10/21 12:20 36.5 C 63 18 136/77 94 04/10/21 11:54 37.1 C 60 18 131/74 95 04/10/21 11:25 36.4 C L 60 12 123/78 96 04/10/21 11:15 62 18 125/78 97 04/10/21 11:08 36.0 C L 60 18 149/62 H 95 04/10/21 07:18 37.2 C 61 18 121/70 95 Laboratory Results 04/10/21 04/10/21 04/10/21 Range/Units 17:15 12:07 11:25 POC Glucose 130 H 167 H 167 H (70-99) mg/dl SARS-CoV-2 (PCR) (Negative) 04/10/21 04/09/21 04/09/21 Range/Units 05:31 23:41 21:05 POC Glucose 161 H 163 H 199 H (70-99) mg/dl SARS-CoV-2 (PCR) (Negative) 04/09/21 Range/Units 18:12 POC Glucose (70-99) mg/dl SARS-CoV-2 (PCR) NEGATIVE (Negative) PG Care Time/CCT Total # of Minutes Spent Total Time Spent with Patient: Total time spent is greater than 50% in coordination of care (as documented) at patient's floor/unit and/or counseling patient: Coding Level of Care Code 83217 Subseq Hosp Care Lvl 3 Diagnoses Kidney stone on left side N20.0 SUE (acute kidney injury) N17.9 Diabetes mellitus E11.9 Paroxysmal atrial fibrillation I48.0 Pacemaker Z95.0 Hypertension I10 Hypertension type: essential hypertension Dyslipidemia E78.5 CAD (coronary artery disease) I25.10 Prostate cancer C61 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
[2021-04-10] MEDS: POLYETHYLENE (MIRALAX) 17 GM PACK PO SCH (14:15)
--- NOTE | 2021-04-10 15:39 | Pharmacy Report ---
Pharmacy Glycemic Short Note 2 - Date of Service April 10, 2021 - Glycemic Short BSG Results (Last 24 hours): 04/09/21 04/09/21 04/09/21 15:54 21:05 23:41 Glucose 205 H POC Glucose 199 H 163 H 04/10/21 04/10/21 04/10/21 05:31 11:25 12:07 Glucose POC Glucose 161 H 167 H 167 H OUTPATIENT ANTIDIABETIC REGIMEN: * Janumet XR - recent change from metformin monotherapy * HbA1c: 8.6% (04/05/21) ASSESSMENT: 04/10 * Renzo received 20 units of Lantus last evening. Fasting BSG above goal at 161 mg/dL. Will increase basal insulin tonight. * Lunchtime BSG is acceptable. Patient resuming diet. Will tighten correction factor. Background: * BERTA is a 65 year old male with type 2 DM, who presents with left flank pain. Subsequently found to have kidney stone with likely postrenal SUE. * SCr: 1.59 mg/dL (baseline of 1.01 mg/dL) * BSG on presentation of 205 mg/dL, 199 mg/dL this evening * Ordered clear liquid diet today and will be NPO after midnight * Will order one-time basal this evening with q4h Novolog overnight PLAN FOR INPATIENT GLYCEMIC CONTROL: * Hold outpatient oral diabetes medications * Basal insulin * Lantus 25-30 units SQ qHS * Bolus insulin * NovoLog per scale ACHS or Q6hrs while NPO * Goal Range: Low 110 mg/dL - High 140 mg/dL * Correction Factor: 20 mg/dL/unit * Nutritional / Prandial insulin per carb ratio of 1 unit per 8 grams CHO consumed PLAN FOR DISCHARGE: * Patient just recently switched from metformin to Janumet XR based on elevated A1c * Reasonable to continue current regimen - A1c should be rechecked in 3 months
[2021-04-10] MEDS ORDERED: WARFARIN SOD 10 MG TAB PO SCH (16:00)
[2021-04-10] MEDS ORDERED: INSULIN GLARGINE SOLOSTAR 100 UNITS/ML 3 ML PEN SC SCH (21:00)
[2021-04-10] MEDS: ATORVASTATIN 40 MG TAB PO SCH (21:12)
[2021-04-10] MEDS: ASCORBIC ACID 500 MG TAB PO SCH (21:12)
[2021-04-10] MEDS ORDERED: INSULIN ASPART 100 UNITS/ML 3 ML PEN SC SCH (21:15)
[2021-04-11 07:11] LABS: Basophils # (auto) 0.01 K/uL (0-0.2); Basophils % (auto) 0.2 %; Eosinophils # (auto) 0.14 K/uL (0-0.5); Eosinophils % (auto) 2.4 %; Hematocrit (blood only) 33.9 % (42-52); Hemoglobin 10.8 g/dL (14.0-18.0); Immature Granulocytes # (auto) 0.02 K/uL (0.00-0.02); Immature Granulocytes % (auto) 0.3 %; Lymphocytes # (auto) 0.97 K/uL (1.2-3.4); Lymphocytes % (auto) 16.6 %; Mean Corpuscular Hemoglobin 29.8 pg (25-34); Mean Corpuscular Hgb Conc 31.9 g/dL (32-36); Mean Corpuscular Volume 93.4 fL (80-100); Mean Platelet Volume 11.1 fL (7.4-10.4); Monocytes # (auto) 0.58 K/uL (0.11-0.59); Monocytes % (auto) 9.9 %; Neutrophils # (auto) 4.14 K/uL (1.4-6.5); Neutrophils % (auto) 70.6 %; Platelet Count 134 K/uL (130-400); RDW Coefficient of Variation 14.1 % (11.5-14.5); RDW Standard Deviation 48.3 fL (36.4-46.3); Red Blood Count 3.63 M/uL (4.7-6.1); White Blood Count 5.86 K/uL (4.8-10.8)
[2021-04-11 07:27] LABS: INR 2.1 (0.9-1.1); Prothrombin Time 19.9 Seconds (9.0-12.0)
[2021-04-11 07:51] LABS: BUN Creatinine Ratio 14.1 (10-20); Calcium 8.4 mg/dl (8.5-10.1); Creatinine Clr Calc Pharmacy 101.8 ml/min; Est GFR (African American) 96.8 ml/min; Est GFR (Non-African American) 83.6 ml/min; Potassium 3.8 mmol/L (3.5-5.1)
[2021-04-11 07:58] LABS: Estimated Average Glucose 200 mg/dl; Hemoglobin A1C 8.6 % (4.5-5.6)
[2021-04-11] MEDS: ASPIRIN 81 MG ECTAB PO SCH (08:41)
[2021-04-11] MEDS: TAMSULOSIN HCL 0.4 MG CAP PO SCH (08:41)
[2021-04-11] MEDS: POLYETHYLENE (MIRALAX) 17 GM PACK PO SCH (08:41)
[2021-04-11] MEDS: METOPROLOL SUCC 25MG EXT REL TAB PO SCH (08:41)
[2021-04-11] MEDS: ASCORBIC ACID 500 MG TAB PO SCH (08:41)
[2021-04-11] MEDS: INSULIN ASPART 100 UNITS/ML 3 ML PEN SC SCH ×2 (08:44→12:49)
--- NOTE | 2021-04-11 09:03 | Urology Progress Note ---
Date of Service April 11, 2021 Assessment & Plan (1) Calculus of proximal left ureter: (2) Hydronephrosis of left kidney: Plan: - Postop day #1 s/p Cystoscopy with left retrograde pyelogram and stent placement with Dr. Garcia - Patient feeling well, pain has improved - He is afebrile, VSS. - Labs reviewed, Wbc stable and creatinine 0.94 today - Voiding without difficulty, urine output appears adequate - Ok for discharge from perspective - Recommend home with flomax, prn pain medication, and prn pyridrium - Will arrange outpatient follow-up for definitive stone treatment - Expected clinical course reviewed with patient, all questions were answered - Thank you for allowing us to participate in the acute care of Mr. Fitzgerald. - Please reconsult us with additional questions, concerns or changes in patient status. Admission and Anticipated Discharge Date Admission Date: April 09, 2021 Subjective Pt examined at bedside this AM. Awake, sitting in bedside chair on arrival. He reports intermittent left flank discomfort. Denies fevers or chills. No nausea or vomiting. Voiding in urinal, urine output overnight 975ml Some hematuria and dysuria as expected Reports urinary urgency and frequency Feels he is emptying his bladder Ambulating without dizziness/lightheadedness Offers no additional complaints Review of Systems Constitutional: as per Subjective / HPI Gastrointestinal: as per Subjective / HPI Genitourinary: + as per Subjective / HPI Physical Exam Constitutional: well developed and well nourished; no acute distress and not ill appearing Respiratory: normal respiratory effort and able to speak in complete sentences; no labored breathing and no audible wheezes Gastrointestinal (Abdomen): Inspection/Auscultation: abdomen normal to inspection; abdomen not distended Musculoskeletal: Head/Neck/Chest: normocephalic Skin: No visible rashes or lesions to exposed skin areas Neurologic: moves all extremities and awake Psychiatric: Orientation: alert, oriented x 3 and cooperative Results & Data ([facility]) Vital Signs (Past 12 Hours) Vital Signs Temp Pulse Resp BP Pulse Ox 04/11/21 07:49 37 C 61 16 125/75 97 04/11/21 04:05 37.0 C 58 L 18 116/67 97 04/10/21 22:30 37.4 C 59 L 18 130/70 95 PG Care Time/CCT Total # of Minutes Spent Total Time Spent with Patient: Total time spent is greater than 50% in coordination of care (as documented) at patient's floor/unit and/or counseling patient: Coding Level of Care Code 13737 Subseq Hosp Care Lvl 2 Diagnoses Calculus of proximal left ureter N20.1 Hydronephrosis of left kidney N13.30
[2021-04-11] MEDS ORDERED: DOCUSATE SODIUM/SENNA 50/8.6MG TAB PO SCH (10:15)
[2021-04-11] MEDS ORDERED: LOSARTAN POTASSIUM 50 MG TAB PO SCH (10:15)
--- NOTE | 2021-04-11 11:04 | Discharge Summary ---
Date of Service April 11, 2021 Admission HPI Per Admitting Provider Renzo Fitzgerald is a 65 year old male who presents to the ER with left flank pain. Started at 3am last night, radiation to left lower quadrant of his abdomen, currently pain is mostly resolved after Toradol and Fentanyl given in the ER (pain resolved prior to CT scan). No fevers, chills or dysuria. He has a history of prior kidney stones which felt similar. He takes warfarin for atrial fibrillation - 10mg Mondays and Fridays, 5mg all other days. In the ER CT abdomen/pelvis confirmed 1.5 x 0.7cm left ureteropelvic junction calculus with mild-moderate left hydronephrosis. He was referred to medicine for admission and ongoing management of left kidney stone. Principal Diagnosis Ureterolithiasis SUE Discharge Exam Constitutional WD/WN, vitals as above Eyes + anicteric sclerae Neck trachea midline, no thyromegaly Respiratory normal respiratory effort, lungs clear to auscultation Cardiovascular RRR, no murmur, no edema Chest (Breasts) Chest: normal inspection of chest Gastrointestinal (Abdomen) normal bowel sounds, soft, nontender, no hepatosplenomegaly Musculoskeletal Extremities: extremities normal to inspection; no cyanosis and no clubbing Skin no rashes, warm and dry Neurologic moves all extremities and awake; no focal motor deficits Psychiatric A+Ox3, euthymic affect Lymphatic no lymphedema Discharge Data Allergies Allergy/AdvReac Type Severity Reaction Status Date / Time No Known Allergies Allergy Verified 04/07/21 09:44 Consultations 04/09/21 17:25 ED Decision to Admit Stat 04/09/21 20:49 Consult Urology Routine Procedures Performed Operation Date: 04/10/21 10:30 Actual Procedures p Insertion of left stent(Left) - Claude Garcia DO s Cystoscopy, retrograde pyelogram. - Claude Garcia DO Ordered Studies 04/09/21 16:40 CT Abd and Pelvis [CT abd pelvis wo con] Stat 04/10/21 10:30 FL retrograde includes kub Routine Hospital Course (1) Kidney stone on left side: With large obstructing left-sided ureterolithiasis-stone measuring 1.5 x 0.7 cm with mild to moderate left hydronephrosis With acute kidney injury on admission-now resolved with IVFs and ureteral stent placement No evidence of infection on urinalysis Now status post stent placement by urology on 04/10 Needs follow-up in the near future for definitive stone management Appreciate urology management Continue tamsulosin 0.4mg PO daily (increased from home dose of every other day) -continue Pyridium prn for dysuria, acetaminophen prn pain Okay to continue Coumadin-watch for hematuria and associated urinary retention at home-no issues with retention here so far -Hold vitamin D and calcium supplements until after stone analysis; consider holding HCTZ as well but need to review stone analysis (2) SUE (acute kidney injury): Obstructive uropathy -now status post stent placement IV fluids were given as above and lacquer machine feeder improved back to normal held HCTZ and losartan but can restart on discharge (3) Diabetes mellitus: HbA1C 8.6 in 04/05/2021 Glucose well controlled here Continue to hold metformin/sitagliptin but can restart on discharge received Lantus and NovoLog while inpatient continue follow up with PCP advised low carb diet (4) Paroxysmal atrial fibrillation: With chronic atrial fibrillation-follows with [facility] cardiology, status post PPM for tachybradycardia syndrome With V paced rhythm on admission on ECG Continue rate control with metoprolol succinate 25mg PO daily His Coumadin was held for 1 dose on 04/09 on admission, but then restarted on 04/10 at usual doses INR 2.1 on day of discharge Follow INR as outpt If develops significant hematuria, would be okay to hold or reverse Coumadin as outpt (5) Pacemaker: Placed for tachy-rodrigo syndrome with a. fib (6) Hypertension: Blood pressures are controlled Continue home doses of metoprolol succinate restart HCTZ and losartan (7) Dyslipidemia: Continue atorvastatin 40mg PO daily (8) CAD (coronary artery disease): Status post triple bypass 2009 No acute issues Continue ASA, metoprolol, atorvastatin,Losartan (9) Prostate cancer: Radiation seeds noted in prostate on imaging. 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, with fat layer exposed: Does not appear infected Follows with wound center Consult wound care nurse Continue Aquacel Ag and gauze with OPTi foam, daily dressing changes VTE Prophylaxis - warfarin Disposition -dc to home Total Time Total Time Spent Total Time Spent (In Minutes): 40 min Discharge Plan Discharge Items Patient Disposition: Home - Self-Care Reason For Visit: URETEROLITHIASIS Discharge Diagnosis: Ureterolithiasis Condition on Discharge: Fair Activity: Resume your previous activity Non-emergency contact: Primary Care Provider and Urologist Call non-emergency contact if: you have any medication questions, your symptoms worsen, your pain is not controlled, your pain is worsening and you have a fever Follow-up/Referrals: Mary Flood CRNP [Primary Care Provider] - 04/17/21 1:30 pm Claude Garcia, [Physician] - (Dr. Garcia' office should be contacting you to schedule your follow up appointment for your kidney stone.) Diet: Carb Consistent or DM2 and Heart Healthy Addtl Attending Provider Instructions: You were admitted with a kidney stone and had a stent placed in your ureter (tube that connects the kidney to the bladder) to allow flow of urine. Your kidney function improved after placement of the stent. You will experience blood in your urine from the stent as well as due to the fact that you are on Coumadin. This is ok as long as you are able to pass your urine. You can take acetaminophen (Tylenol) as needed for pain as well as the pyridium for pain with urination. Because some stones are caused by excessive calcium, please do not take your calcium or vitamin D supplements at this time. Follow up with Urology as planned to treat your kidney stone. Follow up with your PCP within 1-2 weeks. Pending Studies at Discharge: No Stand-Alone Forms: My [facility] Medications and DC Order Prescriptions: New acetaminophen 325 mg Tablet 650 mg PO Q4H PRN (Reason: pain) Qty: 30 RF: 0 polyethylene glycol 3350 [Miralax] 17 gram Powder In Packet 17 g PO DAILY PRN (Reason: constipation) Qty: 30 RF: 0 phenazopyridine [Pyridium] 200 mg Tablet 200 mg PO TID PRN (Reason: painful urination) Qty: 14 RF: 0 Continued Carnivora 250 mcg PO BID RF: 0 coenzyme Q10 [Co Q-10] 200 mg capsule 200 mg PO DAILY RF: 0 Nattokinase Plus 1 tab PO DAILY RF: 0 ascorbic acid (vitamin C) 500 mg capsule 500 mg PO BID RF: 0 meclizine 25 mg tablet 25 mg PO TID PRN (Reason: dizziness) Qty: 30 RF: 2 metformin 500 mg tablet extended release 24 hr 500 mg PO BID Qty: 180 RF: 3 Hold Instructions: now on janumet- atorvastatin 40 mg tablet 40 mg PO HS Qty: 90 RF: 1 indomethacin 25 mg capsule 50 mg PO BID PRN (Reason: GOUT) RF: 0 hydrochlorothiazide 25 mg tablet 25 mg PO DAILY RF: 0 warfarin 5 mg tablet 5 - 10 mg PO UD RF: 0 leuprolide 7.5 mg injectable 7.5 mg IM DIRECTED RF: 0 losartan 50 mg Tablet 50 mg PO QAM RF: 0 aspirin 81 mg Tablet,Delayed Release (Dr/Ec) 81 mg PO QAM RF: 0 metoprolol succinate 25 mg Tablet Extended Release 24 Hr 25 mg PO QAM RF: 0 Janumet XR 50-1,000 mg tablet, ER multiphase 24 hr 1 tab PO BID RF: 0 Changed tamsulosin 0.4 mg capsule 0.4 mg PO DAILY Qty: 30 RF: 0 Discontinued calcium gluconate 500 mg capsule 500 mg PO ONCE RF: 0 cholecalciferol (vitamin D3) 50 mcg (2,000 unit) capsule 100 mcg PO DAILY RF: 0 Discharge Orders: Discharge Order (Routine); Ordered 04/11/21 Ordered By: Rhiannon Farrell/Other Patient Handouts: A1C, Managing Type 2 Diabetes Admission Data Admit Date/Time: 04/09/21 17:46 Attending Provider: Rhiannon Bundy Admit Provider: Delfino Johnson Primary Care Provider: Mary Flood Other Providers: Delfino Johnson ; Claude Garcia Coding Level of Care Code D/C DAY MANAGEMENT >30 MINS Diagnoses Kidney stone on left side N20.0 SUE (acute kidney injury) N17.9 Diabetes mellitus E11.9 Paroxysmal atrial fibrillation I48.0 Pacemaker Z95.0 Hypertension I10 Hypertension type: essential hypertension Dyslipidemia E78.5 CAD (coronary artery disease) I25.10 Prostate cancer C61 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
[2021-04-11] MEDS ORDERED: WARFARIN SOD 5 MG TAB PO SCH ×2 (16:00)
== END 2021-04-11 13:57 | disposition home or self-care (01) | DRG 660 ==
LOC: ED 15:28 → 3N 17:46 → SUATTDRO 17:46 → 3N 20:23

== ENCOUNTER 2021-04-21 19:00 | Inpatient (IN) ==
[2021-04-21] MEDS ORDERED: SODIUM CHLORIDE 0.9% 1000ML 500 ML IV ONE (19:56)
--- NOTE | 2021-04-21 19:58 | Emergency Department Note ---
Impression & Plan Hydronephrosis concurrent with and due to calculi of kidney and ureter, UTI (urinary tract infection), Pneumonia Admission ED Provider Note HPI: The patient is a 65-year-old gentleman who presents the emergency department with a chief complaint of chills, weakness, and nausea over the past 2 days. Patient states that he did have a recent stent placed for a left-sided kidney stone om 04/[address] Garcia of the urology service. He denies any dysuria, states he is able to urinate without issue. Patient denies any abdominal pain, He has had some nausea,he states that he feels generally weak and has had a cough with some sinus congestion as well. He states he has had these pulmonary symptoms for "months" now. He did not receive any COVID-19 vaccinations this y ear. On arrival to the emergency department the patient is hemodynamically stable, he is saturating well on room air, he is otherwise in no acute distress. ROS: - General: Chills, generalized weakness - GI: Nausea - Pulmonary: Cough/congestion x3 to 4 months *10 point review systems was conducted and is otherwise negative unless stated above PE: General: Alert and oriented HEENT: Normocephalic, atraumatic, trachea midline Eyes: Extraocular eye movement is intact, no scleral erythema Pulmonary: Clear to auscultation bilaterally, no wheezing Cardio: Regular rate and rhythm GI: Abdomen is soft, nontender : No suprapubic tenderness, no flank tenderness to palpation bilaterally MSK: No evidence of trauma or malformation of the extremities, no edema Skin: No evidence of rash Neuro: Alert, no focal deficits Psychiatric: Cooperative EKG: - Time:2142 - Rate:69 - Rhythm:Atrial fibrillation - Intervals:Within normal limits - ST changes:No ST elevation Medical Decision Making: Patient presented to the emergency department with symptoms of generalized weakness, stated he also had some nausea, he has had pulmonary symptoms for several months now. Patient was noted to have had a recent ureteral stent placement done on April [address] Garcia of urology. Given this, urinaly sis was obtained as well as CBC, CMP, INR, EKG was also obtained as the patient does have a history of paroxysmal atrial fibrillation, tachy-bradycardia syndrome with pacemaker implantation. Chest x-ray shows evidence of possible left-sided pneumonia, CT imaging of the abdomen and pelvis shows evidence of an obstructing 8 mm kidney stone in the mid left ureter with hydronephrosis, this is despite the recent stent placement. Urinalysis shows evidence of 3+ blood, 3+ leukocyte esterase, Greater than 30 white blood cells, nitrite neg, will send for culture and given the obstructing kidney stone we will start the patient on ceftriaxone and a dose of Diflucan as he did have yeast in his urine as well. Azithromycin will be added given the finding on chest x-ray, patient is being tested for COVID-19. Patient was given Zofran and IV fluids in ED for symptoms, I discussed the above findings with on-call urology, Dr. Mcallister, who reviewed the CT imaging, he does not feel that there is emergent indication for any operative management this evening to which I am in agreement, he will plan to evaluate the patient as a routine consult tomorrow morning, pt to be made NPO after midnight. Patient will be admitted inpatient to a telemetry bed for further management. Blood cultures were drawn in the ED. Samuel catheter ordered. INR pending given history of atrial fibrillation and the fact that the patient is on warfarin. Case was discussed with the on-call hospitalist, Dr. Baptiste, who is in agreement to admit the patient to a telemetry bed for further management. Patient was admitted in stable condition. * Diagnosis: Obstructing kidney stone with urinary tract infection, pneumonia, r/o Covid 19 * Disposition: Admission Piero Tavarez DO Emergency Medicine Past Med/Surg History Medical History (Updated 04/21/21 @ 23:48 by Piero Tavarez DO) CAD S/P percutaneous coronary angioplasty Diabetic peripheral neuropathy associated with type 2 diabetes mellitus Diverticulosis of colon Gout Hydronephrosis of left kidney Intracanalicular fibroadenoma Loss of protective sensation of skin of foot wears a special boot ALISSA (obstructive sleep apnea) no device Paroxysmal atrial fibrillation Pre-ulcerative corn or callous Prostate cancer (10/14/15) radiation and seed and now on lupron Sciatica Surgical wound present right foot and no longer has infection and follows with wound clinic Tachy-rodrigo syndrome has pacemaker Ureterolithiasis Surgical History (Updated 04/20/21 @ 09:26 by Janey Read RN) H/O prostate biopsy H/O shoulder surgery History of arthroplasty of right shoulder History of cataract surgery bilateral History of hip replacement left History of total bilateral knee replacement (TKR) Pacemaker medtronic, follows with dr guy S/P appendectomy S/P CABG x 3 S/P cystoscopy with ureteral stent placement 04/10/21 Dr. Claude Licea retrograde pyelogram with stent placement Status post laser lithotripsy of ureteral calculus 02/2019. LMA #5. No issues. Status post right foot surgery Family History Unknown Prostate cancer self Father Diabetes Myocardial infarction Denies family history of Ovarian cancer Breast cancer Colorectal cancer Social History Smoking Status: Never smoker Second Hand Exposure: No; Hx Alcohol Use: Yes Alcohol type: beer Alcohol Intake Frequency: Monthly or Less Hx Substance Use: No Preferred Language: Cypriot Communication Ability: Effective Visual Impairment: Limited Hearing Ability: Normal Network Security Officer Required: No Beliefs That Will Affect Care: None marital status: / Current Living Situation: Alone current occupational status: retired How many Children do You have: 2 How many Children do You have Comment: local and able to assist as needed Feels Safe at Home: Yes Childhood Exposure to Second-Hand Smoke: No caffeine: Yes Dental Care, Regularly: Yes Physical Activity Frequency: Does not Exercise Seatbelt Use: sometimes Sunscreen Use: No Assistive Devices: Glasses Allergies Allergies Allergy/AdvReac Type Severity Reaction Status Date / Time No Known Allergies Allergy Verified 04/21/21 20:13 Home Meds Home Medications Medication Instructions Recorded Confirmed aspirin 81 mg tablet,delayed 81 mg PO QAM 06/26/18 04/21/21 release losartan 50 mg tablet 50 mg PO QAM 06/26/18 04/21/21 metoprolol succinate 25 mg 25 mg PO QAM 06/26/18 04/21/21 tablet,extended release 24 hr hydrochlorothiazide 25 mg tablet 25 mg PO QAM 06/23/19 04/21/21 Carnivora 250 mcg PO BID 01/26/20 04/21/21 Nattokinase Plus 1 tab PO DAILY 01/26/20 04/21/21 coenzyme Q10 200 mg capsule (Co 200 mg PO DAILY 01/26/20 04/21/21 Q-10) warfarin 5 mg tablet 5 - 10 mg PO UD tab 02/23/20 04/21/21 indomethacin 25 mg capsule 50 mg PO BID PRN 04/08/20 04/21/21 leuprolide 7.5 mg intramuscular 7.5 mg IM DIRECTED 10/04/20 04/21/21 ascorbic acid (vitamin C) 500 mg 500 mg PO BID cap 01/09/21 04/21/21 capsule sitagliptin 50 mg-metformin ER 1 tab PO BID 04/09/21 04/21/21 1,000 mg tablet,extended release 24h mp (Janumet XR) tamsulosin 0.4 mg capsule 0.4 mg PO QAM 04/20/21 04/21/21 acetaminophen 500 mg tablet 500 mg PO Q6H PRN 04/21/21 04/21/21 (Tylenol Extra Strength) Previous Rx's Medication Instructions Recorded meclizine 25 mg tablet 25 mg PO TID PRN #30 tab 06/24/19 atorvastatin 40 mg tablet 40 mg PO HS #90 tab 10/10/20 phenazopyridine 200 mg tablet 200 mg PO TID PRN #14 tab 04/11/21 (Pyridium) polyethylene glycol 3350 17 gram 17 g PO DAILY PRN #30 ea 04/11/21 oral powder packet (Miralax) fluconazole 150 mg tablet 150 mg PO DAILY 2 Days #2 tab 04/20/21 (Diflucan) Results & Data (ED) Vital Signs Vital Signs - 24 hr 04/21/21 19:21 04/21/21 21:37 04/21/21 21:47 Temperature 36.8 C 38.2 C H Temperature Source Temporal Artery Scan Oral Pulse Rate 68 71 Pulse Rate from SpO2 Sensor Respiratory Rate 16 24 Respiratory Effort / Characteristics Non-Labored Spontaneous Respiratory Depth Normal Blood Pressure 136/73 155/88 H Blood Pressure Mean 94 110 Pulse Oximetry 96 Oxygen Delivery Method Room Air Room Air Sepsis Recent Fever Within 48 Hours No Sepsis New/Unexplained Change in Mental Status No Sepsis Action Taken by Nursing No Action Required 04/21/21 22:02 04/21/21 22:10 Temperature Temperature Source Pulse Rate 78 87 Pulse Rate from SpO2 Sensor 69 Respiratory Rate 36 H 19 Respiratory Effort / Characteristics Respiratory Depth Blood Pressure Blood Pressure Mean Pulse Oximetry 94 Oxygen Delivery Method Room Air Room Air Sepsis Recent Fever Within 48 Hours Sepsis New/Unexplained Change in Mental Status Sepsis Action Taken by Nursing Laboratory Data Result diagrams: 04/21/21 19:47 04/21/21 19:47 Lab Results 04/21/21 04/21/21 04/21/21 Range/Units 19:38 19:47 19:47 WBC 11.46 H (4.8-10.8) K/uL RBC 3.86 L (4.7-6.1) M/uL Hgb 11.8 L (14.0-18.0) g/dL Hct 35.3 L (42-52) % MCV 91.5 (80-100) fL MCH 30.6 (25-34) pg MCHC 33.4 (32-36) g/dL RDW Std Deviation 47.8 H (36.4-46.3) fL RDW Coeff of Suzy 14.3 (11.5-14.5) % Plt Count 196 (130-400) K/uL MPV 10.9 H (7.4-10.4) fL Immature Gran % (Auto) 0.4 % Neut % (Auto) 84.9 % Lymph % (Auto) 6.8 % [place] % (Auto) 7.2 % Eos % (Auto) 0.4 % Baso % (Auto) 0.3 % Neut # (Auto) 9.72 H (1.4-6.5) K/uL Lymph # (Auto) 0.78 L (1.2-3.4) K/uL [place] # (Auto) 0.83 H (0.11-0.59) K/uL Eos # (Auto) 0.05 (0-0.5) K/uL Baso # (Auto) 0.03 (0-0.2) K/uL Immature Gran # (Auto) 0.05 H (0.00-0.02) K/uL PT (9.0-12.0) Seconds INR (0.9-1.1) Sodium 134 L (136-145) mmol/L Potassium 3.7 (3.5-5.1) mmol/L Chloride 101 (98-107) mmol/L Carbon Dioxide 28 (21-32) mmol/L Anion Gap 5.0 (3-11) BUN 23 H (7-18) mg/dl Creatinine 1.49 H (0.6-1.4) mg/dl Est Cr Clr Drug Dosing 63.3 ml/min Est GFR ( Amer) 55.5 ml/min Est GFR (Non-Af Amer) 47.9 ml/min BUN/Creatinine Ratio 15.6 (10-20) Glucose 181 H (70-99) mg/dl Calcium 9.0 (8.5-10.1) mg/dl Total Bilirubin 1.0 (0.2-1) mg/dl AST 13 L (15-37) U/L ALT 22 (12-78) U/L Alkaline Phosphatase 51 (45-117) U/L Total Protein 8.0 (6.4-8.2) gm/dl Albumin 3.5 (3.4-5.0) gm/dl Globulin 4.5 H (2.5-4.0) gm/dl Albumin/Globulin Ratio 0.8 L (0.9-2) Urine Color Dark Yellow Urine Appearance Cloudy A (Clear) Urine pH 5.5 (4.5-7.5) Ur Specific [place] 1.022 (1.000-1.030) Urine Protein 1+ H (Negative) Urine Glucose (UA) Negative (Negative) Urine Ketones Trace H (Negative) Urine Blood 3+ H (Negative) Urine Nitrite Negative (Negative) Urine Bilirubin Negative (Negative) Urine Urobilinogen Negative (Negative) Ur Leukocyte Esterase 3+ H (Negative) Urine WBC (Auto) >30 H (0-5) /hpf Urine RBC (Auto) 10-30 H (0-4) /hpf U Hyaline Cast (Auto) 1-5 (0-5) /lpf U Epithel Cells (Auto) 5-10 H (0-5) /lpf Urine Bacteria (Auto) Negative (Negative) Urine Yeast Budding w/ Hyphae A (None Prsent) COVID-19 Eval Order 04/21/21 04/22/21 Range/Units 19:51 00:06 WBC (4.8-10.8) K/uL RBC (4.7-6.1) M/uL Hgb (14.0-18.0) g/dL Hct (42-52) % MCV (80-100) fL MCH (25-34) pg MCHC (32-36) g/dL RDW Std Deviation (36.4-46.3) fL RDW Coeff of Suzy (11.5-14.5) % Plt Count (130-400) K/uL MPV (7.4-10.4) fL Immature Gran % (Auto) % Neut % (Auto) % Lymph % (Auto) % [place] % (Auto) % Eos % (Auto) % Baso % (Auto) % Neut # (Auto) (1.4-6.5) K/uL Lymph # (Auto) (1.2-3.4) K/uL [place] # (Auto) (0.11-0.59) K/uL Eos # (Auto) (0-0.5) K/uL Baso # (Auto) (0-0.2) K/uL Immature Gran # (Auto) (0.00-0.02) K/uL PT 12.5 H (9.0-12.0) Seconds INR 1.3 H (0.9-1.1) Sodium (136-145) mmol/L Potassium (3.5-5.1) mmol/L Chloride (98-107) mmol/L Carbon Dioxide (21-32) mmol/L Anion Gap (3-11) BUN (7-18) mg/dl Creatinine (0.6-1.4) mg/dl Est Cr Clr Drug Dosing ml/min Est GFR ( Amer) ml/min Est GFR (Non-Af Amer) ml/min BUN/Creatinine Ratio (10-20) Glucose (70-99) mg/dl Calcium (8.5-10.1) mg/dl Total Bilirubin (0.2-1) mg/dl AST (15-37) U/L ALT (12-78) U/L Alkaline Phosphatase (45-117) U/L Total Protein (6.4-8.2) gm/dl Albumin (3.4-5.0) gm/dl Globulin (2.5-4.0) gm/dl Albumin/Globulin Ratio (0.9-2) Urine Color Urine Appearance (Clear) Urine pH (4.5-7.5) Ur Specific [place] (1.000-1.030) Urine Protein (Negative) Urine Glucose (UA) (Negative) Urine Ketones (Negative) Urine Blood (Negative) Urine Nitrite (Negative) Urine Bilirubin (Negative) Urine Urobilinogen (Negative) Ur Leukocyte Esterase (Negative) Urine WBC (Auto) (0-5) /hpf Urine RBC (Auto) (0-4) /hpf U Hyaline Cast (Auto) (0-5) /lpf U Epithel Cells (Auto) (0-5) /lpf Urine Bacteria (Auto) (Negative) Urine Yeast (None Prsent) COVID-19 Eval [facility] Administered Medications Azithromycin 500 mg/ Dextrose 255 mls @ 125 mls/hr IV ONE ONE Stop: 04/22/21 01:16 Last Admin: 04/21/21 23:55 Dose: 125 mls/hr Documented by: [id number] Discontinued Medications Sodium Chloride (Nss 1000ml) 500 mls @ 999 mls/hr IV .Q31M ONE Stop: 04/21/21 20:26 Last Infusion: 04/21/21 22:08 Dose: 0 mls/hr Documented by: [id number] Admin: 04/21/21 20:05 Dose: 999 mls/hr Documented by: [id number] Ceftriaxone Sodium (Rocephin) 1,000 mg in 50 mls @ 100 mls/hr IV NOW STA Stop: 04/21/21 22:07 Last Infusion: 04/21/21 22:25 Dose: 0 mls/hr Documented by: [id number] Admin: 04/21/21 21:48 Dose: 100 mls/hr Documented by: [id number] Ioversol (Optiray 320 100ml) 94 ml IV ONCE ONE Stop: 04/21/21 20:42 Last Admin: 04/21/21 20:41 Dose: 1 ml Documented by: [id number] Ondansetron HCl (Ondansetron Inj 2 Mg/Ml 2 Ml Vial) 4 mg IV NOW STA Stop: 04/21/21 21:36 Last Admin: 04/21/21 21:43 Dose: 4 mg Documented by: [id number] Imaging Data Radiologist's Impression: Chest X-Ray 04/21/21 19:43 XR chest 1V portable CLINICAL HISTORY: weakness COMPARISON STUDY: February 19, 2019 FINDINGS: No pneumothorax. Mild blunting of the left costophrenic angle is seen and could represent small left pleural effusion. Atelectasis or infiltrate is seen at the left base. Few reticular opacities at the right lower lung are unchanged since prior. Cardiac silhouette is within upper limits of normal and stable since prior. No significant pulmonary vascular congestion.. Aorta is calcified. Osseous structures: Mild degenerative changes of the spine. Prosthetic right s houlder joint. Midline sternotomy wires. Stable position of left-sided dual-lead pacemaker. IMPRESSION: 1. Minimal left pleural effusion and atelectasis/infiltrate at the left base, slightly worsened since prior. 2. The rest of findings as above. ACT 112: Negative or not required by law. The above report was generated using voice recognition software. It may contain grammatical, syntax or spelling errors. Electronically signed by: Radha Mcdermott DO 04/21/2021 8:19 PM Abdomen/Pelvis CT 04/21/21 19:44 CT abdomen pelvis wo/w con CLINICAL INDICATION: [place] ^Chills, Recent stent placement for L sided stone. TECHNIQUE: Helical axial images of the abdomen and pelvis were obtained and displayed at 5 and 1 mm intervals. Automated dose lowering techniques and/or adjustment according to patient size were utilized for this exam. This exam was performed with and without intravenous contrast. COMPARISON: Comparison is made to CT abdomen and pelvis 04/09/2021 FINDINGS: Lower chest: For findings above the diaphragm, please see CT chest performed same day. Cardiomegaly is seen with biatrial enlargement and implanted ventricular pacemaker noted. Liver: Hepatic steatosis is noted. Gallbladder and biliary tree: No calcified gallstones. Normal caliber wall. No intra- or extrahepatic biliary ductal dilation. Pancreas: Unremarkable, no focal lesions. Spleen: Splenule is incidentally noted. Adrenals: Unremarkable. Kidneys and ureters: Left hydronephrosis is seen, increased from prior exam, despite presence of a nephroureteral stent. There is delayed uptake of contrast in the left kidney. There is a 9 mm gallstone in the left mid ureter. Of note, distention of the ureter extends to the UVJ. Nonobstructive nephrolithiasis is seen on the right. Bladder: Unremarkable. Bowel: Diverticulosis is seen without evidence of diverticulitis. There is a 12 mm kimberly hepatis lymph node. Subcentimeter retroperitoneal nodes are noted. Lymph nodes Retroperitoneal: There is a 12 mm kimberly hepatis lymph node, unchanged from prior exam. Subcentimeter retroperitoneal nodes are noted. Mesenteric: Unremarkable. Pelvic: Subcentimeter external iliac nodes are seen bilaterally. Reproductive organs: Brachytherapy seeds are seen in the prostate. Peritoneum: Normal Vessels: Atherosclerotic calcifications are seen. Abdominal wall: Unremarkable. Bones: A total left hip arthroplasty is seen. Degenerative changes are in the visualized skeleton. IMPRESSION: 1. Left hydronephrosis despite nephroureteral stent. There is an 8 mm stone in the mid left ureter. 2. Hepatic steatosis. 3. Additional findings as above. ACT 112: Negative or not required by law. Electronically signed by: Chaim Iglesias M.D. 04/21/2021 9:07 PM Discharge Plan Visit Data Chief Complaint: Weakness Stated Complaint: SHAKING, WEAKNESS ED Provider: Piero Tavarez Discharge Problem: Hydronephrosis concurrent with and due to calculi of kidney and ureter, UTI (urinary tract infection), Pneumonia Forms Stand Alone Forms: [employer] Prescriptions Prescriptions: No Action Carnivora 250 mcg PO BID RF: 0 coenzyme Q10 [Co Q-10] 200 mg capsule 200 mg PO DAILY RF: 0 Nattokinase Plus 1 tab PO DAILY RF: 0 ascorbic acid (vitamin C) 500 mg capsule 500 mg PO BID RF: 0 meclizine 25 mg tablet 25 mg PO TID PRN (Reason: dizziness) Qty: 30 RF: 2 atorvastatin 40 mg tablet 40 mg PO HS Qty: 90 RF: 1 fluconazole [Diflucan] 150 mg tablet 150 mg PO DAILY 2 Days Qty: 2 RF: 0 indomethacin 25 mg capsule 50 mg PO BID PRN (Reason: GOUT) RF: 0 hydrochlorothiazide 25 mg tablet 25 mg PO QAM RF: 0 warfarin 5 mg tablet 5 - 10 mg PO UD RF: 0 leuprolide 7.5 mg injectable 7.5 mg IM DIRECTED RF: 0 losartan 50 mg Tablet 50 mg PO QAM RF: 0 aspirin 81 mg Tablet,Delayed Release (Dr/Ec) 81 mg PO QAM RF: 0 metoprolol succinate 25 mg Tablet Extended Release 24 Hr 25 mg PO QAM RF: 0 tamsulosin 0.4 mg capsule 0.4 mg PO QAM RF: 0 acetaminophen [Tylenol Extra Strength] 500 mg Tablet 500 mg PO Q6H PRN (Reason: Pain) RF: 0 Janumet XR 50-1,000 mg tablet, ER multiphase 24 hr 1 tab PO BID RF: 0 polyethylene glycol 3350 [Miralax] 17 gram Powder In Packet 17 g PO DAILY PRN (Reason: constipation) Qty: 30 RF: 0 phenazopyridine [Pyridium] 200 mg Tablet 200 mg PO TID PRN (Reason: painful urination) Qty: 14 RF: 0 Referrals Referrals: Mary Flood CRNP [Primary Care Provider] - Discharge Problem: UTI (urinary tract infection) Qualifiers: Urinary tract infection type: site unspecified Hematuria presence: with hematuria Qualified Code(s): N39.0 - Urinary tract infection, site not specified Pneumonia Qualifiers: Pneumonia type: due to unspecified organism Laterality: left Lung location: lower lobe of lung Qualified Code(s): J18.9 - Pneumonia, unspecified organism
[2021-04-21 20:13] LABS: Appearance Urine Cloudy (Clear); Bacteria Urine Automated Negative (Negative); Bilirubin Urine Negative (Negative); Blood Urine 3+ (Negative); Color Urine Dark Yellow; Glucose Urine UA Negative (Negative); Ketones Urine Trace (Negative); Leukocyte Esterase Urine 3+ (Negative); Nitrite Urine Negative (Negative); Protein Urine 1+ (Negative); Specific Gravity Urine 1.022 (1.000-1.030); Urobilinogen Urine Negative (Negative); WBC Urine Automated >30 /hpf (0-5); pH Urine 5.5 (4.5-7.5)
[2021-04-21 20:14] LABS: Basophils # (auto) 0.03 K/uL (0-0.2); Basophils % (auto) 0.3 %; Eosinophils # (auto) 0.05 K/uL (0-0.5); Eosinophils % (auto) 0.4 %; Hematocrit (blood only) 35.3 % (42-52); Hemoglobin 11.8 g/dL (14.0-18.0); Immature Granulocytes # (auto) 0.05 K/uL (0.00-0.02); Immature Granulocytes % (auto) 0.4 %; Lymphocytes # (auto) 0.78 K/uL (1.2-3.4); Lymphocytes % (auto) 6.8 %; Mean Corpuscular Hemoglobin 30.6 pg (25-34); Mean Corpuscular Hgb Conc 33.4 g/dL (32-36); Mean Corpuscular Volume 91.5 fL (80-100); Mean Platelet Volume 10.9 fL (7.4-10.4); Monocytes # (auto) 0.83 K/uL (0.11-0.59); Monocytes % (auto) 7.2 %; Neutrophils # (auto) 9.72 K/uL (1.4-6.5); Neutrophils % (auto) 84.9 %; Platelet Count 196 K/uL (130-400); RDW Coefficient of Variation 14.3 % (11.5-14.5); RDW Standard Deviation 47.8 fL (36.4-46.3); Red Blood Count 3.86 M/uL (4.7-6.1); White Blood Count 11.46 K/uL (4.8-10.8)
--- NOTE | 2021-04-21 20:21 | XRay Report ---
XR chest 1V portable CLINICAL HISTORY: weakness COMPARISON STUDY: February 19, 2019 FINDINGS: No pneumothorax. Mild blunting of the left costophrenic angle is seen and could represent small left pleural effusion. Atelectasis or infiltrate is seen at the left base. Few reticular opacities at the right lower lung are unchanged since prior. Cardiac silhouette is within upper limits of normal and stable since prior. No significant pulmonary vascular congestion.. Aorta is calcified. Osseous structures: Mild degenerative changes of the spine. Prosthetic right shoulder joint. Midline sternotomy wires. Stable position of left-sided dual-lead pacemaker. IMPRESSION: 1. Minimal left pleural effusion and atelectasis/infiltrate at the left base, slightly worsened sinc e prior. 2. The rest of findings as above. ACT 112: Negative or not required by law. The above report was generated using voice recognition software. It may contain grammatical, syntax o r spelling errors. Electronically signed by: Radha Mcdermott DO 04/21/2021 8:19 PM
[2021-04-21 20:39] LABS: Albumin Level 3.5 gm/dl (3.4-5.0); BUN Creatinine Ratio 15.6 (10-20); Creatinine Clr Calc Pharmacy 63.3 ml/min; Est GFR (African American) 55.5 ml/min; Est GFR (Non-African American) 47.9 ml/min; Potassium 3.7 mmol/L (3.5-5.1)
[2021-04-21 20:41] LABS: Albumin Globulin Ratio 0.8 (0.9-2); Globulin 4.5 gm/dl (2.5-4.0)
[2021-04-21] MEDS ORDERED: OPTIRAY 320 100ml IV ONE (20:41)
--- NOTE | 2021-04-21 21:08 | CT Scan Report ---
CT abdomen pelvis wo/w con CLINICAL INDICATION: [place] ^Chills, Recent stent placement for L sided stone. TECHNIQUE: Helical axial images of the abdomen and pelvis were obtained and displayed at 5 and 1 mm i ntervals. Automated dose lowering techniques and/or adjustment according to patient size were utilize d for this exam. This exam was performed with and without intravenous contrast. COMPARISON: Comparison is made to CT abdomen and pelvis 04/09/2021 FINDINGS: Lower chest: For findings above the diaphragm, please see CT chest performed same day. Cardiomegaly is seen with biatrial enlargement and implanted ventricular pacemaker noted. Liver: Hepatic steatosis is noted. Gallbladder and biliary tree: No calcified gallstones. Normal caliber wall. No intra- or extrahepatic biliary ductal dilation. Pancreas: Unremarkable, no focal lesions. Spleen: Splenule is incidentally noted. Adrenals: Unremarkable. Kidneys and ureters: Left hydronephrosis is seen, increased from prior exam, despite presence of a ne phroureteral stent. There is delayed uptake of contrast in the left kidney. There is a 9 mm gallstone in the left mid ureter. Of note, distention of the ureter extends to the UVJ. Nonobstructive nephrol ithiasis is seen on the right. Bladder: Unremarkable. Bowel: Diverticulosis is seen without evidence of diverticulitis. There is a 12 mm kimberly hepatis lymp h node. Subcentimeter retroperitoneal nodes are noted. Lymph nodes Retroperitoneal: There is a 12 mm kimberly hepatis lymph node, unchanged from prior exam. Subcentimeter retroperitoneal nodes are noted. Mesenteric: Unremarkable. Pelvic: Subcentimeter external iliac nodes are seen bilaterally. Reproductive organs: Brachytherapy seeds are seen in the prostate. Peritoneum: Normal Vessels: Atherosclerotic calcifications are seen. Abdominal wall: Unremarkable. Bones: A total left hip arthroplasty is seen. Degenerative changes are in the visualized skeleton. IMPRESSION: 1. Left hydronephrosis despite nephroureteral stent. There is an 8 mm stone in the mid left ureter. 2. Hepatic steatosis. 3. Additional findings as above. ACT 112: Negative or not required by law. Electronically signed by: Chaim Iglesias M.D. 04/21/2021 9:07 PM
[2021-04-21] MEDS ORDERED: ONDANSETRON INJ 2 MG/ML 2 ML VIAL IV STA (21:35)
[2021-04-21] MEDS ORDERED: cefTRIAXone SODIUM 1,000 MG/50 ML BAG IV STA (21:38)
[2021-04-21] MEDS ORDERED: AZITHROMYCIN 500 MG in DEXTROSE 5% 250 ML IV ONE (23:14)
[2021-04-21] MEDS ORDERED: FLUCONAZOLE 100 MG/50 ML BAG IV SCH (23:15)
[2021-04-22 00:28] LABS: INR 1.3 (0.9-1.1); Prothrombin Time 12.5 Seconds (9.0-12.0)
--- NOTE | 2021-04-22 01:19 | History & Physical Report ---
Date of Service April 22, 2021 Assessment & Plan (1) Hydronephrosis concurrent with and due to calculi of kidney and ureter: Plan: 65 yo m hx paf, dm2, cad, hld, prostate cancer s/p chemo now on leupron, admitted for management of hydronephrosis despite stent. 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 states he had a left ureteral stent placed by urology last week and suffers from many kidney stones. In the past few days had been feeling warm, shivering, shaking throughout and came to get checked out at the ER. Denies pain or burning with urination, no nausea, vomiting or diarrhea. no measured fevers. does have a hx of MRSA skin infections, has never had psueodmonas to his recollection. Allergies Allergy/AdvReac Type Severity Reaction Status Date / Time No Known Allergies Allergy Verified 04/21/21 20:13 Home Medications Medication Instructions Recorded Confirmed Type aspirin 81 mg tablet,delayed 81 mg PO QAM 06/26/18 04/21/21 History release losartan 50 mg tablet 50 mg PO QAM 06/26/18 04/21/21 History metoprolol succinate 25 mg 25 mg PO QAM 06/26/18 04/21/21 History tablet,extended release 24 hr hydrochlorothiazide 25 mg tablet 25 mg PO QAM 06/23/19 04/21/21 History meclizine 25 mg tablet 25 mg PO TID PRN #30 tab 06/24/19 04/21/21 Rx Carnivora 250 mcg PO BID 01/26/20 04/21/21 History Nattokinase Plus 1 tab PO DAILY 01/26/20 04/21/21 History coenzyme Q10 200 mg capsule (Co 200 mg PO DAILY 01/26/20 04/21/21 History Q-10) warfarin 5 mg tablet 5 - 10 mg PO UD tab 02/23/20 04/21/21 History indomethacin 25 mg capsule 50 mg PO BID PRN 04/08/20 04/21/21 History leuprolide 7.5 mg intramuscular 7.5 mg IM DIRECTED 10/04/20 04/21/21 History atorvastatin 40 mg tablet 40 mg PO HS #90 tab 10/10/20 04/21/21 Rx ascorbic acid (vitamin C) 500 mg 500 mg PO BID cap 01/09/21 04/21/21 History capsule sitagliptin 50 mg-metformin ER 1 tab PO BID 04/09/21 04/21/21 History 1,000 mg tablet,extended release 24h mp (Janumet XR) phenazopyridine 200 mg tablet 200 mg PO TID PRN #14 tab 04/11/21 04/21/21 Rx (Pyridium) polyethylene glycol 3350 17 gram 17 g PO DAILY PRN #30 ea 04/11/21 04/21/21 Rx oral powder packet (Miralax) fluconazole 150 mg tablet 150 mg PO DAILY 2 Days #2 tab 04/20/21 04/21/21 Rx (Diflucan) tamsulosin 0.4 mg capsule 0.4 mg PO QAM 04/20/21 04/21/21 History acetaminophen 500 mg tablet 500 mg PO Q6H PRN 04/21/21 04/21/21 History (Tylenol Extra Strength) Past Med/Surg History Medical History CAD S/P percutaneous coronary angioplasty Diabetic peripheral neuropathy associated with type 2 diabetes mellitus Diverticulosis of colon Gout Hydronephrosis of left kidney Intracanalicular fibroadenoma Loss of protective sensation of skin of foot wears a special boot ALISSA (obstructive sleep apnea) no device Paroxysmal atrial fibrillation Pre-ulcerative corn or callous Prostate cancer (10/14/15) radiation and seed and now on lupron Sciatica Surgical wound present right foot and no longer has infection and follows with wound clinic 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 Claude Licea retrograde pyelogram with stent placement Status post laser lithotripsy of ureteral calculus 02/2019. LMA #5. No issues. 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 Beliefs That Will Affect Care: None marital status: / Current Living Situation: Alone current occupational status: retired How many Children do You have: 2 How many Children do You have Comment: local and able to assist as needed Feels Safe at Home: Yes Safety Concerns: Feels Safe At This Time Childhood Exposure to Second-Hand Smoke: No caffeine: Yes Dental Care, Regularly: Yes Physical Activity Frequency: Does not Exercise Seatbelt Use: sometimes Sunscreen Use: No Assistive Devices: Special Shoe Assistive Devices Comment: Boot over R foot wound when ambulating Review of Systems Review of Systems: All systems reviewed & are unremarkable except as noted in Subjective Physical Exam Physical Exam: Constitutional: obese, in no apparent distress, sitting comfortably in bed. Eyes: EOMI, pupils equal and reactive bilaterally, no scleral icterus Cardiac: RRR, no murmurs, gallops or rubs. Normal S1, S2 Pulm: CTA BL, no wheezes, rhonchi, crackles or rubs, moving air well throughout both lungs Abd: soft, nontender, nondistended, normal bowel sounds, no rebound or guarding Extremities: 2+ peripheral pulses, no edema Neuro: no focal deficits, moving all 4 limbs, A&Ox3 foot: bandage covering healing right foot ulcer, wound healing well without exudate or purulence. dry. Results & Data Results & Data ([facility]) Vital Signs (Past 12 Hours) Vital Signs Temp Pulse Resp BP Pulse Ox 04/21/21 22:10 87 19 04/21/21 22:02 78 36 H 94 04/21/21 21:47 38.2 C H 04/21/21 21:37 71 24 155/88 H 04/21/21 19:21 36.8 C 68 16 136/73 96 Diagnostic Findings Laboratory Results WBC 11.46 K/uL (4.8-10.8) H 04/21/21 19:47 RBC 3.86 M/uL (4.7-6.1) L 04/21/21 19:47 Hgb 11.8 g/dL (14.0-18.0) L 04/21/21 19:47 Hct 35.3 % (42-52) L 04/21/21 19:47 MCV 91.5 fL (80-100) 04/21/21 19:47 MCH 30.6 pg (25-34) 04/21/21 19:47 MCHC 33.4 g/dL (32-36) 04/21/21 19:47 RDW Std Deviation 47.8 fL (36.4-46.3) H 04/21/21 19:47 RDW Coeff of Suzy 14.3 % (11.5-14.5) 04/21/21 19:47 Plt Count 196 K/uL (130-400) 04/21/21 19:47 MPV 10.9 fL (7.4-10.4) H 04/21/21 19:47 Immature Gran % (Auto) 0.4 % 04/21/21 19:47 Neut % (Auto) 84.9 % 04/21/21 19:47 Lymph % (Auto) 6.8 % 04/21/21 19:47 Moffat % (Auto) 7.2 % 04/21/21 19:47 Eos % (Auto) 0.4 % 04/21/21 19:47 Baso % (Auto) 0.3 % 04/21/21 19:47 Neut # (Auto) 9.72 K/uL (1.4-6.5) H 04/21/21 19:47 Lymph # (Auto) 0.78 K/uL (1.2-3.4) L 04/21/21 19:47 Moffat # (Auto) 0.83 K/uL (0.11-0.59) H 04/21/21 19:47 Eos # (Auto) 0.05 K/uL (0-0.5) 04/21/21 19:47 Baso # (Auto) 0.03 K/uL (0-0.2) 04/21/21 19:47 Immature Gran # (Auto) 0.05 K/uL (0.00-0.02) H 04/21/21 19:47 PT 12.5 Seconds (9.0-12.0) H 04/22/21 00:06 INR 1.3 (0.9-1.1) H 04/22/21 00:06 Sodium 134 mmol/L (136-145) L 04/21/21 19:47 Potassium 3.7 mmol/L (3.5-5.1) 04/21/21 19:47 Chloride 101 mmol/L (98-107) 04/21/21 19:47 Carbon Dioxide 28 mmol/L (21-32) 04/21/21 19:47 Anion Gap 5.0 (3-11) 04/21/21 19:47 BUN 23 mg/dl (7-18) H 04/21/21 19:47 Creatinine 1.49 mg/dl (0.6-1.4) H 04/21/21 19:47 Est Cr Clr Drug Dosing 63.3 ml/min 04/21/21 19:47 Est GFR ( Amer) 55.5 ml/min 04/21/21 19:47 Est GFR (Non-Af Amer) 47.9 ml/min 04/21/21 19:47 BUN/Creatinine Ratio 15.6 (10-20) 04/21/21 19:47 Glucose 181 mg/dl (70-99) H 04/21/21 19:47 Calcium 9.0 mg/dl (8.5-10.1) 04/21/21 19:47 Total Bilirubin 1.0 mg/dl (0.2-1) 04/21/21 19:47 AST 13 U/L (15-37) L 04/21/21 19:47 ALT 22 U/L (12-78) 04/21/21 19:47 Alkaline Phosphatase 51 U/L (45-117) 04/21/21 19:47 Total Protein 8.0 gm/dl (6.4-8.2) 04/21/21 19:47 Albumin 3.5 gm/dl (3.4-5.0) 04/21/21 19:47 Globulin 4.5 gm/dl (2.5-4.0) H 04/21/21 19:47 Albumin/Globulin Ratio 0.8 (0.9-2) L 04/21/21 19:47 Urine Color Dark Yellow 04/21/21 19:38 Urine Appearance Cloudy (Clear) A 04/21/21 19:38 Urine pH 5.5 (4.5-7.5) 04/21/21 19:38 Ur Specific [place] 1.022 (1.000-1.030) 04/21/21 19:38 Urine Protein 1+ (Negative) H 04/21/21 19:38 Urine Glucose (UA) Negative (Negative) 04/21/21 19:38 Urine Ketones Trace (Negative) H 04/21/21 19:38 Urine Blood 3+ (Negative) H 04/21/21 19:38 Urine Nitrite Negative (Negative) 04/21/21 19:38 Urine Bilirubin Negative (Negative) 04/21/21 19:38 Urine Urobilinogen Negative (Negative) 04/21/21 19:38 Ur Leukocyte Esterase 3+ (Negative) H 04/21/21 19:38 Urine WBC (Auto) >30 /hpf (0-5) H 04/21/21 19:38 Urine RBC (Auto) 10-30 /hpf (0-4) H 04/21/21 19:38 U Hyaline Cast (Auto) 1-5 /lpf (0-5) 04/21/21 19:38 U Epithel Cells (Auto) 5-10 /lpf (0-5) H 04/21/21 19:38 Urine Bacteria (Auto) Negative (Negative) 04/21/21 19:38 Urine Yeast Budding w/ Hyphae (None Prsent) A 04/21/21 19:38 COVID-19 Eval Order Covid19 [facility]Now [facility] 04/21/21 19:51 SARS-CoV-2, RNA, NAAT NEGATIVE (NEGATIVE) 04/21/21 19:51 Impressions Chest X-Ray 04/21/21 19:43 XR chest 1V portable CLINICAL HISTORY: weakness COMPARISON STUDY: February 19, 2019 FINDINGS: No pneumothorax. Mild blunting of the left costophrenic angle is seen and could represent small left pleural effusion. Atelectasis or infiltrate is seen at the left base. Few reticular opacities at the right lower lung are unchanged since prior. Cardiac silhouette is within upper limits of normal and stable since prior. No significant pulmonary vascular congestion.. Aorta is calcified. Osseous structures: Mild degenerative changes of the spine. Prosthetic right shoulder joint. Midline sternotomy wires. Stable position of left-sided dual-lead pacemaker. IMPRESSION: 1. Minimal left pleural effusion and atelectasis/infiltrate at the left base, slightly worsened since prior. 2. The rest of findings as above. ACT 112: Negative or not required by law. The above report was generated using voice recognition software. It may contain grammatical, syntax or spelling errors. Electronically signed by: Radha Mcdermott DO 04/21/2021 8:19 PM Abdomen/Pelvis CT 04/21/21 19:44 CT abdomen pelvis wo/w con CLINICAL INDICATION: [place] ^Chills, Recent stent placement for L sided stone. TECHNIQUE: Helical axial images of the abdomen and pelvis were obtained and displayed at 5 and 1 mm intervals. Automated dose lowering techniques and/or adjustment according to patient size were utilized for this exam. This exam was performed with and without intravenous contrast. COMPARISON: Comparison is made to CT abdomen and pelvis 04/09/2021 FINDINGS: Lower chest: For findings above the diaphragm, please see CT chest performed same day. Cardiomegaly is seen with biatrial enlargement and implanted ventricular pacemaker noted. Liver: Hepatic steatosis is noted. Gallbladder and biliary tree: No calcified gallstones. Normal caliber wall. No intra- or extrahepatic biliary ductal dilation. Pancreas: Unremarkable, no focal lesions. Spleen: Splenule is incidentally noted. Adrenals: Unremarkable. Kidneys and ureters: Left hydronephrosis is seen, increased from prior exam, despite presence of a nephroureteral stent. There is delayed uptake of contrast in the left kidney. There is a 9 mm gallstone in the left mid ureter. Of note, distention of the ureter extends to the UVJ. Nonobstructive nephrolithiasis is seen on the right. Bladder: Unremarkable. Bowel: Diverticulosis is seen without evidence of diverticulitis. There is a 12 mm kimberly hepatis lymph node. Subcentimeter retroperitoneal nodes are noted. Lymph nodes Retroperitoneal: There is a 12 mm kimberly hepatis lymph node, unchanged from prior exam. Subcentimeter retroperitoneal nodes are noted. Mesenteric: Unremarkable. Pelvic: Subcentimeter external iliac nodes are seen bilaterally. Reproductive organs: Brachytherapy seeds are seen in the prostate. Peritoneum: Normal Vessels: Atherosclerotic calcifications are seen. Abdominal wall: Unremarkable. Bones: A total left hip arthroplasty is seen. Degenerative changes are in the visualized skeleton. IMPRESSION: 1. Left hydronephrosis despite nephroureteral stent. There is an 8 mm stone in the mid left ureter. 2. Hepatic steatosis. 3. Additional findings as above. ACT 112: Negative or not required by law. Electronically signed by: Chaim Iglesias M.D. 04/21/2021 9:07 PM Supervising Physician Co-Signing Physician Notes Attending addendum: I have physically seen this patient, have supervised the medical residents activities, and agree with the H&P unless as otherwise noted. Assessment and Plan: Left hydronephrosis/left ureteral stent/8 mm mid left ureteral calculus- NPO Follow urine culture and sensitivity Cefepime IV Fluconazole IV Sams placed Consult urology Acute kidney injury- Creatinine 1.4, with baseline 0.9 Hold HCTZ and losartan for now IV fluids Likely an obstructive component as well Hypertension/PAF with pacer- Continue metoprolol Holding HCTZ and losartan as noted above Hold warfarin for cystoscopy in a.m. Remaining orders and notations as noted Resident Activity Tracking Resident Involvement: Resident Care Provided Care Provided: Adult Hospital Medicine (1) Hypertension Hypertension type: essential hypertension Qualified Code(s): I10 - Essential (primary) hypertension
[2021-04-22] MEDS: FLUCONAZOLE 100 MG/50 ML BAG IV SCH (03:40)
[2021-04-22] MEDS: CEFEPIME 2,000 MG in SYRINGE 0 ML IV SCH ×2 (04:36→17:09)
--- NOTE | 2021-04-22 08:50 | Urology Consultation ---
Date of Consultation April 22, 2021 Assessment & Plan (1) Kidney stone on left side: 65 yo M with left obstructing ureteral calculus s/p left ureteral stent placement on 04/10/21. Presented to ED evening of 04/21 with generalized weakness. Suspect symptoms are UTI related as urine culture from 04/17 grew rubia and UA from ED showed yeast. CT consistent with some inflammation around ureteral stent. -CT scan showed mild left hydronephrosis, however stent is in good position. Urine can reflux back up the stent, which can sometimes result in hydronephrosis. Recommended sams catheter on presentation to maximally drain urine, however patient refused. -No need for procedure today as patient is afebrile and stable. Patient can have diet and can also restart coumadin -Patient wanted to know why stone couldn't be treated today. I explained that attempting to treat a stone while infected can cause sepsis and possibly lead to ICU admission/. If a procedure would be required, it would only be a stent replacement in this current setting. No indication for that today. -Trend creatinine and CBC. Continue hydration. -Continue antibiotics, including diflucan. Follow up cultures -Will discuss timing of surgery with Dr. Garcia on Saturday pending patients status -Urology to follow. Please contact with any further questions. History of Present Illness Reason for Consultation: Hx of left ureteral stent placement, presented to ED with generalized weakness. Attending Physician: Moshe Boo MD History of Present Illness 65 yo male with multiple medical comorbitidies to who presented to ED last night with generalized weakness. Urologic history is significant for large left obstructing ureteral stone for which Dr. Garcia placed a left ureteral stent on 04/10/21. He was then seen in urology clinic on 04/17/21 for a preoperative appointment to discuss stone treatment. He is currently scheduled for stone treatment this upcoming . A preop urine culture was taken from clinic which grew rubia albicans. On arrival to the ED, he was initially afebrile but then developed a temp of 38.2. He was otherwise hemodynamically stable. Labs showed rise in creatinine from 0.9 to 1.4. Mild leukocytosis. UA was concerning for infection, and showed budding yeast. He received cefepime and diflucan. A CT scan showed the left ureteral stent in good position with the ureteral stone still in place. Their was mild hydronephrosis similar to previous CT scan, which is likely reflective of urine refluxing up the stent. There was some stranding around the ureter. Today, he denies any current flank pain but states it comes and goes. He endorses urinary frequency but denies any other urinary symptoms. He feels roughly the same as he did when he presented last night. Allergies Allergy/AdvReac Type Severity Reaction Status Date / Time No Known Allergies Allergy Verified 04/21/21 20:13 Home Medications Medication Instructions Recorded Confirmed Type aspirin 81 mg tablet,delayed 81 mg PO QAM 06/26/18 04/21/21 History release losartan 50 mg tablet 50 mg PO QAM 06/26/18 04/21/21 History metoprolol succinate 25 mg 25 mg PO QAM 06/26/18 04/21/21 History tablet,extended release 24 hr hydrochlorothiazide 25 mg tablet 25 mg PO QAM 06/23/19 04/21/21 History meclizine 25 mg tablet 25 mg PO TID PRN #30 tab 06/24/19 04/21/21 Rx Carnivora 250 mcg PO BID 01/26/20 04/21/21 History Nattokinase Plus 1 tab PO DAILY 01/26/20 04/21/21 History coenzyme Q10 200 mg capsule (Co 200 mg PO DAILY 01/26/20 04/21/21 History Q-10) warfarin 5 mg tablet 5 - 10 mg PO UD tab 02/23/20 04/21/21 History indomethacin 25 mg capsule 50 mg PO BID PRN 04/08/20 04/21/21 History leuprolide 7.5 mg intramuscular 7.5 mg IM DIRECTED 10/04/20 04/21/21 History atorvastatin 40 mg tablet 40 mg PO HS #90 tab 10/10/20 04/21/21 Rx ascorbic acid (vitamin C) 500 mg 500 mg PO BID cap 01/09/21 04/21/21 History capsule sitagliptin 50 mg-metformin ER 1 tab PO BID 04/09/21 04/21/21 History 1,000 mg tablet,extended release 24h mp (Janumet XR) phenazopyridine 200 mg tablet 200 mg PO TID PRN #14 tab 04/11/21 04/21/21 Rx (Pyridium) polyethylene glycol 3350 17 gram 17 g PO DAILY PRN #30 ea 04/11/21 04/21/21 Rx oral powder packet (Miralax) fluconazole 150 mg tablet 150 mg PO DAILY 2 Days #2 tab 04/20/21 04/21/21 Rx (Diflucan) tamsulosin 0.4 mg capsule 0.4 mg PO QAM 04/20/21 04/21/21 History acetaminophen 500 mg tablet 500 mg PO Q6H PRN 04/21/21 04/21/21 History (Tylenol Extra Strength) Patient History Medical History CAD S/P percutaneous coronary angioplasty Diabetic peripheral neuropathy associated with type 2 diabetes mellitus Diverticulosis of colon Gout Hydronephrosis of left kidney Intracanalicular fibroadenoma Loss of protective sensation of skin of foot wears a special boot ALISSA (obstructive sleep apnea) no device Paroxysmal atrial fibrillation Pre-ulcerative corn or callous Prostate cancer (10/14/15) radiation and seed and now on lupron Sciatica Surgical wound present right foot and no longer has infection and follows with wound clinic 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 Claude Licea retrograde pyelogram with stent placement Status post laser lithotripsy of ureteral calculus 02/2019. LMA #5. No issues. 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 Beliefs That Will Affect Care: None marital status: / Current Living Situation: Alone current occupational status: retired How many Children do You have: 2 How many Children do You have Comment: local and able to assist as needed Feels Safe at Home: Yes Safety Concerns: Feels Safe At This Time Childhood Exposure to Second-Hand Smoke: No caffeine: Yes Dental Care, Regularly: Yes Physical Activity Frequency: Does not Exercise Seatbelt Use: sometimes Sunscreen Use: No Assistive Devices: Special Shoe Assistive Devices Comment: Boot over R foot wound when ambulating Results & Data ([facility]) Vital Signs (Past 12 Hours) Vital Signs Temp Pulse Pulse Resp BP BP Pulse Ox 04/22/21 07:38 37.3 C 65 18 159/72 H 90 04/22/21 02:29 37.5 C 66 16 130/67 93 04/22/21 01:41 78 16 145/90 H 96 04/21/21 22:10 87 19 04/21/21 22:02 78 36 H 94 04/21/21 21:47 38.2 C H 04/21/21 21:37 71 24 155/88 H PG Care Time/CCT Total # of Minutes Spent Total Time Spent with Patient: Total time spent is greater than 50% in coordination of care (as documented) at patient's floor/unit and/or counseling patient: [place] [address] Inpt Consult Level 5 Patient Type Established History Comprehensive Exam Comprehensive Medical Decision Making Moderate Complexity Diagnoses Kidney stone on left side N20.0
[2021-04-22] MEDS: METOPROLOL SUCC 25MG EXT REL TAB PO SCH (10:01)
[2021-04-22] MEDS: ASPIRIN 81 MG ECTAB PO SCH (10:01)
[2021-04-22] MEDS: TAMSULOSIN HCL 0.4 MG CAP PO SCH (10:01)
[2021-04-22] MEDS: POLYETHYLENE (MIRALAX) 17 GM PACK PO SCH (10:02)
[2021-04-22] MEDS ORDERED: DEXTROSE 50% 50 ML SYRINGE IV PRN (11:47)
[2021-04-22] MEDS ORDERED: GLUCOSE 10 TABS/TUBE PO PRN (11:47)
[2021-04-22] MEDS ORDERED: CARBOHYDRATES FOR HYPOGLYCEMIA PO PRN (11:47)
[2021-04-22] MEDS ORDERED: GLUCOSE 40% GEL 15 GM TUBE PO PRN (11:47)
[2021-04-22] MEDS ORDERED: GLUCAGON FOR INJ 1 MG VIAL SQ PRN (11:47)
--- NOTE | 2021-04-22 12:07 | Hospitalist Progress Note ---
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 Hydronephrosis due to renal calculi ? UTI UA with epithelial cells, leukocyte esterase, white blood cells, no bacteria UC pending Blood cultures pending Leukocytosis to 11.46 on admission Urology consulted. Note that CT scan shows stent in good position and urine reflux can back up the stent and cause hydro-. Recommended Samuel catheter, patient refused/refusing. Did not recommend emergent procedural intervention Case to be discussed with Dr. Garcia on Saturday pending clinical status. Recommend continuing anticoagulation and diet at this time. Trend creatinine/CBC and continue hydration. Appreciate recommendations. Continue cefepime 2 g every 12 hours pending source control Continue fluconazole 100 mg every 24 hours x2 days (2) Diabetic ulcer of right foot associated with type 2 diabetes mellitus, with fat layer exposed: Plan: Left foot diabetic ulcer dressed, C/D/I No signs of overriding cellulitis Continue routine wound care/dressing changes (3) Diabetes mellitus: Plan: Diabetic diet Glucose checks AC/at bedtime Converted to basal bolus, home antilipemics held Sliding scale insulin ordered Goal range 1001 40 (4) CAD (coronary artery disease): Plan: Continue statin Continue aspirin Hold hydrochlorothiazide and losartan in the setting of SUE Continue metoprolol (5) Hypertension: Plan: Metoprolol as above, HCTZ and losartan held as noted (6) Atrial fibrillation: Plan: Heart rate regular on morning assessment Recommend to continue anticoagulation until holding indicated per urology Given that patient is subtherapeutic (INR 1.3) on admission, rather than resume warfarin we will continue heparin GTT at this time. Consider Lovenox until procedure if creatinine improves/normalizes. (7) SUE (acute kidney injury): Plan: Acute kidney injury due to post renal obstruction 2/2 renal calculi as noted above Creatinine acutely elevated to 1.49, prior baseline less than 1 Management as noted in hydronephrosis/renal calculi Admission and Anticipated Discharge Date Admission Date: April 22, 2021 Subjective Seen at bedside this morning. Reports he feels okay, denies fever/chills/sweats today. He reports he has slight abdominal tenderness, otherwise is not in pain at rest. Denies dysuria today. Is hungry, would like to eat if he is not having a procedure performed. Otherwise no questions or complaints. Review of Systems Review of Systems: All systems reviewed & are unremarkable except as noted in HPI & below Physical Exam Physical Exam: General: A&Ox3. NAD. Cooperative. HEENT: Atraumatic, normocephalic. Visual acuity intact, hearing intact. Pulm: CTAB A&P. -wheezes, -rales, -rhonchi. Symmetrical chest rise. No increase work of breathing. No respiratory distress. Cardiac: RRR, -mrg. Radial pulses intact and symmetrical. Abdominal: Nontender to palpation, nondistended, soft. BS present. Extremities: Left foot with dressing, C/D/thigh. PT pulses intact. Moving extremities equally, warm and dry. Diminished sensation in feet to soft touch. Results & Data Results & Data ([facility]) Vital Signs (Past 12 Hours) Vital Signs Temp Pulse Resp BP Pulse Ox 04/22/21 11:08 36.6 C 62 16 127/72 92 04/22/21 07:38 37.3 C 65 18 159/72 H 90 04/22/21 02:29 37.5 C 66 16 130/67 93 04/22/21 01:41 78 16 145/90 H 96 PG Care Time/CCT Total # of Minutes Spent Total Time Spent with Patient: Total time spent is greater than 50% in coordination of care (as documented) at patient's floor/unit and/or counseling patient: Coding Level of Care Code 01123 Subseq Hosp Care Lvl 3 Diagnoses Hydronephrosis concurrent with and due to calculi of kidney and ureter N13.2 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 Diabetes mellitus E11.9 CAD (coronary artery disease) I25.10 Hypertension I10 Hypertension type: essential hypertension Atrial fibrillation I48.91 SEU (acute kidney injury) N17.9 (1) Hypertension Hypertension type: essential hypertension Qualified Code(s): I10 - Essential (primary) hypertension
[2021-04-22] MEDS: Heparin IV Adult Wt-Based Standard *NO* Bolus Protocol IV SCH ×5 (12:30→15:41)
[2021-04-22] MEDS ORDERED: HEPARIN 25000 UNIT/500 ML D5W IV ONE (12:47)
[2021-04-22] MEDS: HEPARIN SODIUM/DEXTROSE 25,000 UNITS/500 ML BAG IV SCH (12:55)
[2021-04-22] MEDS: INSULIN ASPART 100 UNITS/ML 3 ML PEN SC SCH ×3 (13:21→22:12)
[2021-04-22 13:23] LABS: Basophils # (auto) 0.02 K/uL (0-0.2); Basophils % (auto) 0.2 %; Eosinophils # (auto) 0.11 K/uL (0-0.5); Eosinophils % (auto) 0.9 %; Hematocrit (blood only) 34.4 % (42-52); Hemoglobin 11.2 g/dL (14.0-18.0); Immature Granulocytes # (auto) 0.03 K/uL (0.00-0.02); Immature Granulocytes % (auto) 0.2 %; Lymphocytes # (auto) 0.88 K/uL (1.2-3.4); Lymphocytes % (auto) 7.3 %; Mean Corpuscular Hemoglobin 30.7 pg (25-34); Mean Corpuscular Volume 94.2 fL (80-100); Mean Platelet Volume 10.7 fL (7.4-10.4); Monocytes # (auto) 1.19 K/uL (0.11-0.59); Monocytes % (auto) 9.8 %; Neutrophils # (auto) 9.86 K/uL (1.4-6.5); Neutrophils % (auto) 81.6 %; Platelet Count 204 K/uL (130-400); RDW Coefficient of Variation 14.5 % (11.5-14.5); RDW Standard Deviation 49.8 fL (36.4-46.3); Red Blood Count 3.65 M/uL (4.7-6.1); White Blood Count 12.09 K/uL (4.8-10.8)
[2021-04-22 13:33] LABS: Partial Thromboplastin Ratio 1.1; Partial Thromboplastin Time 29.6 Seconds (21.0-31.0)
[2021-04-22 13:59] LABS: Mean Corpuscular Hgb Conc 32.6 g/dL (32-36)
[2021-04-22] MEDS: ACETAMINOPHEN 325 MG TAB PO PRN (19:36)
[2021-04-22 19:59] LABS: Partial Thromboplastin Ratio 1.4; Partial Thromboplastin Time 35.9 Seconds (21.0-31.0)
[2021-04-22] MEDS ORDERED: HEPARIN SOD (PORCINE) 1000 UNIT/ML IV ONE (20:19)
[2021-04-22] MEDS ORDERED: HEPARIN IV BOLUS 4,000 UNITS in SYRINGE 0 ML IV ONE (21:00)
[2021-04-22] MEDS: INSULIN GLARGINE SOLOSTAR 100 UNITS/ML 3 ML PEN SC SCH (22:11)
[2021-04-22] MEDS: ATORVASTATIN 40 MG TAB PO SCH (22:14)
--- NOTE | 2021-04-22 23:01 | Billing Data ---
Date of Service April 22, 2021 Coding Level of Care Code 61257 Initial Inpt Care Lvl 3
[2021-04-23] MEDS: HEPARIN SODIUM/DEXTROSE 25,000 UNITS/500 ML BAG IV SCH ×2 (03:03→16:11)
[2021-04-23] MEDS: FLUCONAZOLE 100 MG/50 ML BAG IV SCH (03:04)
[2021-04-23] MEDS: CEFEPIME 2,000 MG in SYRINGE 0 ML IV SCH ×2 (04:45→16:56)
[2021-04-23 06:23] LABS: Partial Thromboplastin Ratio 1.6
--- NOTE | 2021-04-23 07:34 | Urology Progress Note ---
Date of Service April 23, 2021 Assessment & Plan (1) Kidney stone on left side: Plan: 65 yo M with left obstructing ureteral calculus s/p left ureteral stent placement on 04/10/21. Presented to ED evening of 04/21 with generalized weakness. Suspect symptoms are UTI related as urine culture from 04/17 grew rubia and UA from ED showed yeast. CT consistent with some inflammation around ureteral stent. -CT scan showed mild left hydronephrosis, however stent is in good position. Urine can reflux back up the stent, which can sometimes result in hydronephrosis. Recommended sams catheter on presentation to maximally drain urine, however patient refused. -No need for procedure today as patient is stable. -Recommend repeat BMP today. Trend creatinine -Continue antibiotics, including diflucan. Follow up cultures -Will discuss timing of surgery (currently schedule for ) with Dr. Garcia on Saturday pending patients status -Recommend increasing bowel regimen per patient request -Urology to follow. Please contact with any further questions. Admission and Anticipated Discharge Date Admission Date: April 22, 2021 Subjective No acute issues overnight. Patient reports abdominal pain related to needing to have a bowel movement. Denies any urinary symptoms or flank pain currently. Review of Systems Review of Systems: 14 point review of systems negative outside of what is listed above in HPI Physical Exam Physical Exam: General: Alert and oriented, no acute distress HEENT: Normocephalic, mucous membranes moist Cardiovascular: Regular rate Pulmonary: Nonlabored respirations Abdomen: Nondistended Extremities: Moves all 4 spontaneously Neuro: No gross deficits Skin: Warm, dry, no rashes noted Results & Data ([facility]) Vital Signs (Past 12 Hours) Vital Signs Temp Pulse Resp BP Pulse Ox 04/23/21 03:00 37.2 C 70 20 154/73 H 94 04/22/21 23:00 36.7 C 61 20 132/74 95 PG Care Time/CCT Total # of Minutes Spent Total Time Spent with Patient: Total time spent is greater than 50% in coordination of care (as documented) at patient's floor/unit and/or counseling patient: [place]oding [place] [address] Subseq Hosp Care Lvl 2 Patient Type Established History Expanded Problem Focused Exam Expanded Problem Focused Medical Decision Making Moderate Complexity Diagnoses Kidney stone on left side N20.0
[2021-04-23] MEDS: ASPIRIN 81 MG ECTAB PO SCH (07:59)
[2021-04-23] MEDS: POLYETHYLENE (MIRALAX) 17 GM PACK PO SCH ×2 (08:00→21:12)
[2021-04-23] MEDS: TAMSULOSIN HCL 0.4 MG CAP PO SCH (08:00)
[2021-04-23] MEDS: METOPROLOL SUCC 25MG EXT REL TAB PO SCH (08:00)
[2021-04-23] MEDS: INSULIN GLARGINE SOLOSTAR 100 UNITS/ML 3 ML PEN SC SCH ×2 (08:15→21:06)
[2021-04-23] MEDS: INSULIN ASPART 100 UNITS/ML 3 ML PEN SC SCH ×4 (08:17→21:07)
[2021-04-23] MEDS ORDERED: SOD PHOSPHATE/SOD BIPHOSPHATE ENEMA 132 ML BTL PR PRN (08:35)
[2021-04-23] MEDS ORDERED: bisacodyL 10 MG SUPP PR PRN (08:35)
--- NOTE | 2021-04-23 12:27 | Hospitalist Progress Note ---
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 Hydronephrosis due to renal calculi ? UTI UA with epithelial cells, leukocyte esterase, white blood cells, no bacteria UC with pinpoint growth, reintubating Blood cultures pending, no growth at 24 hours Leukocytosis to 12.09 Urology consulted. Note that CT scan shows stent in good position and urine reflux can back up the stent and cause hydro-. Recommended Samuel catheter, patient refused/refusing. Did not recommend emergent procedural intervention Case to be discussed with Dr. Garcia on Saturday pending clinical status. Recommend continuing anticoagulation and diet at this time. Trend creatinine/CBC and continue hydration. Appreciate recommendations. Continue cefepime 2 g every 12 hours pending source control Continue fluconazole 100 mg every 24 hours x2 days (2) Diabetic ulcer of right foot associated with type 2 diabetes mellitus, with fat layer exposed: Plan: Left foot diabetic ulcer dressed, C/D/I No signs of overriding cellulitis Continue routine wound care/dressing changes (3) Diabetes mellitus: Plan: Diabetic diet Glucose checks AC/at bedtime Converted to basal bolus, home antilipemics held Sliding scale insulin ordered Goal range 1001 40 (4) CAD (coronary artery disease): Plan: Continue statin Continue aspirin Hold hydrochlorothiazide and losartan in the setting of SUE Continue metoprolol (5) Hypertension: Plan: Metoprolol as above, HCTZ and losartan held as noted (6) Atrial fibrillation: Plan: Heart rate regular on morning assessment Recommend to continue anticoagulation until holding indicated per urology Given that patient is subtherapeutic (INR 1.3) on admission, rather than resume warfarin we will continue heparin GTT at this time. Consider Lovenox until procedure if creatinine improves/normalizes. (7) SUE (acute kidney injury): Plan: Acute kidney injury due to post renal obstruction 2/2 renal calculi as noted above Creatinine acutely elevated to 1.49, prior baseline less than 1 Management as noted in hydronephrosis/renal calculi (8) Constipation: Plan: Did not improve with MiraLAX, did not improve with dietary attempt (prune juice/juice/butter) Patient increasingly uncomfortable, last bowel movement prior to admission Bisacodyl p.o. with AK if ineffective, may use as needed at patient preference Patient request for enema which has worked for him in the past, Fleet enema x1 ordered Plan: DVT prophylaxis: On heparin GTT Diet: Carb consistent, n.p.o. at midnight prior when urology plans intervention CODE STATUS: Full code Admission and Anticipated Discharge Date Admission Date: April 22, 2021 Rhoda Mei "is seen at the bedside this morning. He reports he feels "bloated and has not been able to go for days ". He is frustrated by constipation, and feels MiraLAX and dietary regimen (prune juice, butter) have not helped. Would like an enema. Otherwise feels unchanged from prior. Denies flank pain, just endorses abdominal pain from constipation. Denies fever/chills/sweats. Denies difficulty breathing. Denies chest pain/chest pressure. Review of Systems Review of Systems: 10 point review of systems negative except as noted in HPI Physical Exam Physical Exam: General: A&Ox3. NAD. Cooperative. HEENT: Atraumatic, normocephalic. Visual acuity intact, hearing intact. Pulm: CTAB A&P. -wheezes, -rales, -rhonchi. Symmetrical chest rise. No increase work of breathing. No respiratory distress. Cardiac: RRR, -mrg. Radial pulses intact and symmetrical. Abdominal: Softly distended, nontender without rebound, BS present. Extremities: Left foot with dressing, C/D/thigh. PT pulses intact. Moving extremities equally, warm and dry. Diminished sensation in feet to soft touch. Results & Data Results & Data ([facility]) Vital Signs (Past 12 Hours) Vital Signs Temp Pulse Pulse Resp BP BP Pulse Ox 04/23/21 11:18 36.9 C 61 18 128/70 95 04/23/21 08:03 36.9 C 62 18 128/74 93 04/23/21 07:44 67 04/23/21 03:00 37.2 C 70 20 154/73 H 94 PG Care Time/CCT Total # of Minutes Spent Total Time Spent with Patient: Total time spent is greater than 50% in coordination of care (as documented) at patient's floor/unit and/or counseling patient: Coding Level of Care Code 21855 Subseq Hosp Care Lvl 2 Diagnoses Hydronephrosis concurrent with and due to calculi of kidney and ureter N13.2 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 Diabetes mellitus E11.9 CAD (coronary artery disease) I25.10 Hypertension I10 Hypertension type: essential hypertension Atrial fibrillation I48.91 SUE (acute kidney injury) N17.9 Constipation K59.00 (1) Hypertension Hypertension type: essential hypertension Qualified Code(s): I10 - Essential (primary) hypertension
[2021-04-23 13:10] LABS: Partial Thromboplastin Ratio 1.4; Partial Thromboplastin Time 36.7 Seconds (21.0-31.0)
[2021-04-23 13:21] LABS: BUN Creatinine Ratio 16.8 (10-20); Calcium 8.4 mg/dl (8.5-10.1); Creatinine Clr Calc Pharmacy 70.8 ml/min; Est GFR (African American) 63.7 ml/min; Est GFR (Non-African American) 54.9 ml/min; Potassium 3.7 mmol/L (3.5-5.1)
[2021-04-23] MEDS ORDERED: HEPARIN SOD (PORCINE) 1000 UNIT/ML IV ONE (14:14)
--- NOTE | 2021-04-23 19:56 | Electrocardiogram Report ---
Test Reason : Blood Pressure : / mmHG Vent. Rate : 070 BPM Atrial Rate : 441 BPM P-R Int : 000 ms QRS Dur : 094 ms QT Int : 414 ms P-R-T Axes : 000 -20 -88 degrees QTc Int : 447 ms Atrial fibrillation with a competing junctional pacemaker Low voltage QRS Septal infarct , age undetermined T wave abnormalities could be due to "T wave memory" from ventricular pacing Abnormal ECG When compared with ECG of 09-APR-2021 16:30, Atrial fibrillation has replaced Electronic ventricular pacemaker Confirmed by Peng Sparks ([id number]) on 04/23/2021 7:56:14 PM Referred By: REFERRED SELF Confirmed By:Peng Sparks
[2021-04-23 20:48] LABS: Partial Thromboplastin Ratio 1.7; Partial Thromboplastin Time 44.9 Seconds (21.0-31.0)
[2021-04-23] MEDS: ATORVASTATIN 40 MG TAB PO SCH (21:05)
[2021-04-23] MEDS: SENNA 8.6 MG TAB PO SCH (23:32)
[2021-04-23] MEDS: ACETAMINOPHEN 325 MG TAB PO PRN (23:32)
[2021-04-24] MEDS: HEPARIN SODIUM/DEXTROSE 25,000 UNITS/500 ML BAG IV SCH ×2 (03:38→14:55)
[2021-04-24 03:40] LABS: Basophils # (auto) 0.02 K/uL (0-0.2); Basophils % (auto) 0.2 %; Eosinophils # (auto) 0.33 K/uL (0-0.5); Eosinophils % (auto) 4.1 %; Hematocrit (blood only) 28.8 % (42-52); Hemoglobin 9.5 g/dL (14.0-18.0); Immature Granulocytes # (auto) 0.04 K/uL (0.00-0.02); Immature Granulocytes % (auto) 0.5 %; Lymphocytes # (auto) 0.76 K/uL (1.2-3.4); Lymphocytes % (auto) 9.4 %; Mean Corpuscular Hemoglobin 29.8 pg (25-34); Mean Corpuscular Volume 90.3 fL (80-100); Mean Platelet Volume 10.4 fL (7.4-10.4); Monocytes # (auto) 0.77 K/uL (0.11-0.59); Monocytes % (auto) 9.5 %; Neutrophils # (auto) 6.18 K/uL (1.4-6.5); Neutrophils % (auto) 76.3 %; Platelet Count 184 K/uL (130-400); RDW Coefficient of Variation 14.1 % (11.5-14.5); Red Blood Count 3.19 M/uL (4.7-6.1)
[2021-04-24] MEDS: FLUCONAZOLE 100 MG/50 ML BAG IV SCH (03:40)
[2021-04-24 04:00] LABS: BUN Creatinine Ratio 18.4 (10-20); Calcium 8.3 mg/dl (8.5-10.1); Creatinine Clr Calc Pharmacy 76.6 ml/min; Est GFR (Non-African American) 60.4 ml/min; Potassium 3.3 mmol/L (3.5-5.1)
[2021-04-24 04:05] LABS: Partial Thromboplastin Ratio 1.9
[2021-04-24] MEDS: CEFEPIME 2,000 MG in SYRINGE 0 ML IV SCH (04:12)
[2021-04-24 04:18] LABS: Partial Thromboplastin Time 48.7 Seconds (21.0-31.0)
[2021-04-24 09:04] LABS: Partial Thromboplastin Ratio 1.8
[2021-04-24] MEDS: SENNA 8.6 MG TAB PO SCH ×3 (09:04→10:15)
[2021-04-24] MEDS: POLYETHYLENE (MIRALAX) 17 GM PACK PO SCH ×2 (09:04→20:59)
[2021-04-24 09:21] LABS: Partial Thromboplastin Time 47.5 Seconds (21.0-31.0)
[2021-04-24] MEDS ORDERED: POTASSIUM CHLORIDE CRTAB 20 MEQ TABCR PO STA (09:40)
--- NOTE | 2021-04-24 09:40 | Urology Progress Note ---
Date of Service April 24, 2021 Assessment & Plan (1) Kidney stone on left side: Plan: 65 year-old male patient, s/p left ureteral stent placement on 04/10/21, admitted with weakness, UTI, left-sided hydronephrosis. -Plan of care reviewed with Dr. Garcia. -Patient afebrile over the past 24 hours. -Labs reviewed - white count returned to normal, creatinine stable. -Urine culture positive for Grace albicans/dubliniensis -Preliminary blood cultures no growth after 48 hours. -Recommend continuing antibiotic therapy, including Diflucan. Follow cultures. -No acute intervention indicated at this time, okay to have diet from urologic standpoint. -Bowel regimen per primary team. -Tentatively plan to keep surgical intervention for stone treatment as scheduled this coming , 04/27, to allow for continued clinical progress and treatment of infection. -Will continue to follow while inpatient. Admission and Anticipated Discharge Date Admission Date: April 22, 2021 Subjective Patient seen and examined at bedside. He is awake, alert, and non-toxic in appearance. His biggest concern this AM is not being able to have a bowel movement for the past week. Has tried multiple regimens without success. Does have occasional nausea, denies vomiting. Reports abdominal bloating. Denies flank pain. Denies hematuria or dysuria. No stone passage since admission. Denies fevers or chills. Has been NPO since midnight. Chart review: Afebrile over the past 24 hours. Wbc 8.10 Hgb 9.5 Creatinine 1.23 Urine culture with Grace albicans/dubliniensis. Preliminary blood cultures no growth after 48 hours. Denies additional urologic concerns today. Review of Systems Constitutional: as per Subjective / HPI; no fever and no chills Gastrointestinal: as per Subjective / HPI, + nausea, + cramping and + constipation; no vomiting Genitourinary: + as per Subjective / HPI Physical Exam Constitutional: well developed and well nourished; no acute distress and not ill appearing Respiratory: normal respiratory effort and able to speak in complete sentences; no respiratory distress and no audible wheezes Gastrointestinal (Abdomen): Inspection/Auscultation: abdomen normal to inspection and + abdomen distended (mild) Percussion/Palpation: + abdomen firm (Mild); abdomen nontender and no guarding Psychiatric: Orientation: alert, oriented x 3 and cooperative Affect: euthymic affect Genitourinary: no CVA tenderness Results & Data ([facility]) Vital Signs (Past 12 Hours) Vital Signs Temp Pulse Pulse Resp BP BP Pulse Ox 04/24/21 07:39 36.7 C 59 L 16 128/71 95 04/24/21 02:38 36.6 C 60 18 125/75 96 04/23/21 23:31 37.3 C 04/23/21 23:00 69 04/23/21 22:56 36.8 C 60 17 155/75 H 95 PG Care Time/CCT Total # of Minutes Spent Total Time Spent with Patient: Total time spent is greater than 50% in coordination of care (as documented) at patient's floor/unit and/or counseling patient: Coding Level of Care Code 93377 Subseq Hosp Care Lvl 2 Diagnoses Kidney stone on left side N20.0
[2021-04-24] MEDS: METOPROLOL SUCC 25MG EXT REL TAB PO SCH (10:02)
[2021-04-24] MEDS: INSULIN ASPART 100 UNITS/ML 3 ML PEN SC SCH ×4 (10:05→21:02)
[2021-04-24] MEDS: TAMSULOSIN HCL 0.4 MG CAP PO SCH (10:05)
[2021-04-24] MEDS: ASPIRIN 81 MG ECTAB PO SCH (10:06)
[2021-04-24] MEDS: INSULIN GLARGINE SOLOSTAR 100 UNITS/ML 3 ML PEN SC SCH ×2 (10:07→21:00)
--- NOTE | 2021-04-24 10:50 | XRay Report ---
KUB HISTORY: Acute generalized abdominal pain ?ileus vs impaction? COMPARISON: CT abdomen and pelvis 04/21/2021 FINDINGS: Air-filled loops of large and small bowel are noted. Mildly dilated small bowel within the right midabdomen measures up to 3.1 cm. Mild fecal retention. Left ureteral stent appears to be in s atisfactory positioning. No definite renal or ureteral calculi identified. Brachytherapy seeds of the prostate. No pneumoperitoneum or pneumatosis. Degenerative changes of the spine, pelvis and hips. Pr ior median sternotomy. No fracture. IMPRESSION: 1. Satisfactory positioning of the left ureteral stent. No definite renal or ureteral calculi are jackelin ntified. 2. Nonobstructive bowel gas pattern. 3. Air-filled slightly dilated loops of small bowel within the right midabdomen may be physiologic or reflect a mild ileus. ACT 112: Negative or not required by law. The above report was generated using voice recognition software. It may contain grammatical, syntax o r spelling errors. Electronically signed by: Laureano Muñiz M.D. 04/24/2021 10:49 AM
[2021-04-24] MEDS ORDERED: bisacodyL 5 MG TABEC PO ONE (12:41)
--- NOTE | 2021-04-24 12:44 | Hospitalist Progress Note ---
Date of Service April 24, 2021 Assessment & Plan (1) Constipation: Plan: KUB x-ray obtained; my reading - mild dilatation of loops on right, copious stool left colon. likely combination of constipation +/- mild ileus. plan - * dulcolax PO x 1 now * downgrade diet to clears * patient looks mildly volume contracted from not being able to eat -- start IV fluids x 2 L * at his request will start go-lytely 1/2 bottle, or can d/c sooner once having multiple BMs * encouraged plenty of walking/ambulation will need bowel regimen thereafter (2) Candidal UTI (urinary tract infection): Plan: c albicans day #5 diflucan (had 2 doses of diflucan on 04/20 and 04/21 at home) cont 10-14 day course can likely transition the diflucan to PO tomorrow d/c cefepime - no bacterial UTI - urine cx neg for such (3) Hydronephrosis concurrent with and due to calculi of kidney and ureter: Plan: s/p L ureteral stent deployment by Dr Garcia on 04/10/21. CT this admission with stent in good position. 8mm stone on left. Urology has seen - no surgical intervention until of this week at earliest. cancel NPO order for today. allow clears. (4) 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 (5) Diabetes mellitus: Plan: a1c 8.6% earlier this month. cont basal-bolus insulin. BSGs are high 100s - adjust insulins as needed. (6) CAD (coronary artery disease): Plan: No symptoms of CAD at this time. Continue statin, BB, asa. (7) Hypertension: Plan: Hold HCTZ and losartan given recent SUE. BPs acceptable without them. Cont metoprolol. (8) Atrial fibrillation: Plan: continue heparin drip while coumadin is on hold. resumption of coumadin depends on timing of urological procedures. continue beta vivian. (9) SUE (acute kidney injury): Plan: Presenting Cr 1.49, prior baseline less than 1. Now 1.2 today. Appears mildly volume contracted. IVF overnight; repeat BMP am. Component of obstruction likely also present. (10) Ectatic thoracic aorta: Plan: 4.1cm nothing to do at this time continue beta vivian (11) Pacemaker: Plan: ntoed (12) Hyponatremia: Plan: 2nd to volume contraction? IV fluids overnight bmp am (13) Hypokalemia: Plan: replace repeat BMP am check mag level am as well (14) DVT prophylaxis: Plan: heparin drip Plan: left message for family 04/24 Admission and Anticipated Discharge Date Admission Date: April 22, 2021 Subjective tele overnight wnl patient c/o severe constipation - no BM in over a week is passing flatus but despite such is very bloated he is eating little because of these symptoms he has intermittent nausea but fortunately no vomiting he asks for a "clean out" had no results with fleets enema yesterday denies dyspnea denies abd pain denies chest pain mentions he has a chronic right foot wound and needs to wear a walking boot with ambulation he is frustrated due to the GI issues Review of Systems Review of Systems: gen - denies fevers/chills CV - no chest pain - voiding fine, no dysuria GI - see HPI; denies abd pain - just bloating pulm - no dyspnea but does state the bloating seems to affect his breathing a little Physical Exam Physical Exam: gen - sitting in chair, looks a bit uncomfortable mouth - MM dry neck - no JVD heart - irregular, s1 s2 lungs - CTA b/l abd - distended, BS+, mildly tender upper abdomen, no HSM ext - no edema, pulses 2+ b/l skin - tiny ulceration plantar aspect of right 5th metatarsal head - clean, no drainage, no erythema Results & Data Results & Data ([facility]) Vital Signs (Past 12 Hours) Vital Signs Temp Pulse Resp BP BP Pulse Ox 04/24/21 11:08 37.0 C 68 18 120/68 96 04/24/21 07:39 36.7 C 59 L 16 128/71 95 04/24/21 02:38 36.6 C 60 18 125/75 96 Laboratory Results Laboratory Results - last 24 hr 04/24/21 04/24/21 04/24/21 06:08 08:30 11:46 APTT 47.5 H* PTT Ratio 1.8 POC Glucose 187 H 182 H 04/24/21 20:48 APTT PTT Ratio POC Glucose 179 H Diagnostic Findings KUB X-Ray 04/24/21 09:58 KUB HISTORY: Acute generalized abdominal pain ?ileus vs impaction? COMPARISON: CT abdomen and pelvis 04/21/2021 FINDINGS: Air-filled loops of large and small bowel are noted. Mildly dilated small bowel within the right midabdomen measures up to 3.1 cm. Mild fecal retention. Left ureteral stent appears to be in satisfactory positioning. No definite renal or ureteral calculi identified. Brachytherapy seeds of the prostate. No pneumoperitoneum or pneumatosis. Degenerative changes of the spine, pelvis and hips. Prior median sternotomy. No fracture. IMPRESSION: 1. Satisfactory positioning of the left ureteral stent. No definite renal or ureteral calculi are identified. 2. Nonobstructive bowel gas pattern. 3. Air-filled slightly dilated loops of small bowel within the right midabdomen may be physiologic or reflect a mild ileus. ACT 112: Negative or not required by law. The above report was generated using voice recognition software. It may contain grammatical, syntax or spelling errors. Electronically signed by: Laureano Muñiz M.D. 04/24/2021 10:49 AM PG Care Time/CCT Total # of Minutes Spent Total Time Spent with Patient: Total time spent is greater than 50% in coordination of care (as documented) at patient's floor/unit and/or counseling patient: Coding Level of Care Code 89507 Subseq Hosp Care Lvl 3 Diagnoses Hydronephrosis concurrent with and due to calculi of kidney and ureter N13.2 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 Diabetes mellitus E11.9 CAD (coronary artery disease) I25.10 Hypertension I10 Hypertension type: essential hypertension Atrial fibrillation I48.91 SUE (acute kidney injury) N17.9 Constipation K59.00 Ectatic thoracic aorta I77.810 Pacemaker Z95.0 Candidal UTI (urinary tract infection) B37.49 Hyponatremia E87.1 Hypokalemia E87.6 DVT prophylaxis Z29.9 (1) Hypertension Hypertension type: essential hypertension Qualified Code(s): I10 - Essential (primary) hypertension
[2021-04-24] MEDS: NSS + 20MEQ KCL 20 MEQ/1,000 ML BAG IV SCH (13:08)
[2021-04-24] MEDS: LAVAGE SOLUTION 4000ML PO SCH ×6 (13:14→16:55)
[2021-04-24] MEDS: ATORVASTATIN 40 MG TAB PO SCH (21:00)
[2021-04-25] MEDS: HEPARIN SODIUM/DEXTROSE 25,000 UNITS/500 ML BAG IV SCH ×4 (00:58→23:23)
[2021-04-25] MEDS: NSS + 20MEQ KCL 20 MEQ/1,000 ML BAG IV SCH (02:30)
[2021-04-25] MEDS: FLUCONAZOLE 100 MG/50 ML BAG IV SCH (02:34)
[2021-04-25] MEDS: ACETAMINOPHEN 325 MG TAB PO PRN (04:32)
[2021-04-25 07:18] LABS: Hematocrit (blood only) 28.8 % (42-52); Hemoglobin 9.3 g/dL (14.0-18.0); Mean Corpuscular Hgb Conc 32.3 g/dL (32-36); Mean Corpuscular Volume 92.9 fL (80-100); Mean Platelet Volume 10.5 fL (7.4-10.4); Platelet Count 194 K/uL (130-400); RDW Coefficient of Variation 14.2 % (11.5-14.5); RDW Standard Deviation 48.4 fL (36.4-46.3); White Blood Count 7.43 K/uL (4.8-10.8)
[2021-04-25 07:48] LABS: Partial Thromboplastin Ratio 1.8
--- NOTE | 2021-04-25 07:49 | Urology Progress Note ---
Date of Service April 25, 2021 Assessment & Plan (1) Kidney stone on left side: (2) Candidal UTI (urinary tract infection): Plan: 65 year-old male patient, s/p left ureteral stent placement on 04/10/21, admitted with weakness, UTI, left-sided hydronephrosis. -Patient remains afebrile. -Labs reviewed - white count and creatinine stable. -Urine culture positive for Grace albicans/dubliniensis. -Preliminary blood cultures no growth after 48 hours. -Recommend continuing supportive care and IV Diflucan. Follow cultures. -Bowel regimen per primary team. -Presuming patient remains afebrile and no acute changes in clinical status, will tentatively plan to keep surgical intervention for stone treatment as scheduled this coming , 04/27, to allow for continued clinical progress and treatment of infection. -Will continue to follow while inpatient. Admission and Anticipated Discharge Date Admission Date: April 22, 2021 Subjective Patient seen and examined at bedside. He is awake, alert, and non-toxic in appearance. Feeling better overall since yesterday. Has had multiple bowel movements overnight, reports as liquid. Tolerating clear liquid diet without nausea or vomiting. Reports intermittent abdominal bloating. Denies flank or abdominal pain. Denies hematuria or dysuria. No stone passage since admission. Denies fevers or chills. Chart review: Afebrile. Wbc 7.43 Hgb 9.3 Creatinine 1.09 (previously 1.23). Urine culture with Grace albicans/dubliniensis. Preliminary blood cultures no growth after 48 hours. Denies additional urologic concerns today. Review of Systems Constitutional: as per Subjective / HPI; no fever and no chills Gastrointestinal: as per Subjective / HPI; no nausea and no vomiting Genitourinary: + as per Subjective / HPI Physical Exam Constitutional: well developed and well nourished; no acute distress and not ill appearing Respiratory: normal respiratory effort and able to speak in complete sentences; no respiratory distress and no audible wheezes Gastrointestinal (Abdomen): Inspection/Auscultation: abdomen normal to inspection and + abdomen distended (mild) Percussion/Palpation: abdomen nontender and no guarding Psychiatric: Orientation: alert, oriented x 3 and cooperative Affect: euthymic affect Genitourinary: no CVA tenderness Results & Data ([facility]) Vital Signs (Past 12 Hours) Vital Signs Temp Pulse Pulse Resp BP BP Pulse Ox 04/25/21 06:18 60 04/25/21 04:00 36.7 C 59 L 18 138/68 95 04/24/21 23:30 62 04/24/21 23:00 37.1 C 61 18 149/72 H 95 PG Care Time/CCT Total # of Minutes Spent Total Time Spent with Patient: Total time spent is greater than 50% in coordination of care (as documented) at patient's floor/unit and/or counseling patient: Coding Level of Care Code 80858 Subseq Hosp Care Lvl 2 Diagnoses Kidney stone on left side N20.0 Candidal UTI (urinary tract infection) B37.49
[2021-04-25 07:55] LABS: Partial Thromboplastin Time 47.5 Seconds (21.0-31.0)
[2021-04-25 07:57] LABS: BUN Creatinine Ratio 11.7 (10-20); Calcium 8.6 mg/dl (8.5-10.1); Creatinine Clr Calc Pharmacy 86.2 ml/min; Est GFR (Non-African American) 69.9 ml/min; Magnesium 2.7 mg/dl (1.8-2.4); Potassium 3.7 mmol/L (3.5-5.1)
[2021-04-25] MEDS: INSULIN ASPART 100 UNITS/ML 3 ML PEN SC SCH ×4 (08:46→20:30)
[2021-04-25] MEDS: POLYETHYLENE (MIRALAX) 17 GM PACK PO SCH ×2 (08:51→20:29)
[2021-04-25] MEDS: METOPROLOL SUCC 25MG EXT REL TAB PO SCH (08:51)
[2021-04-25] MEDS: TAMSULOSIN HCL 0.4 MG CAP PO SCH (08:52)
[2021-04-25] MEDS: ASPIRIN 81 MG ECTAB PO SCH (08:52)
[2021-04-25] MEDS: INSULIN GLARGINE SOLOSTAR 100 UNITS/ML 3 ML PEN SC SCH ×2 (08:53→20:28)
[2021-04-25] MEDS: BENZONATATE 100 MG CAPSULE PO SCH ×2 (14:10→20:27)
[2021-04-25] MEDS ORDERED: COUGH DROP (SUGAR FREE) LOZ 24 LOZ/1 BOX BUCCAL PRN (18:13)
[2021-04-25] MEDS: ATORVASTATIN 40 MG TAB PO SCH (20:32)
--- NOTE | 2021-04-25 21:05 | Hospitalist Progress Note ---
Date of Service April 25, 2021 Assessment & Plan (1) Constipation: Plan: resolved s/p golytely stop the golytely start a bowel maintenance tomorrow (miralax +/- senna) advance diet as tolerated (2) Candidal UTI (urinary tract infection): Plan: c albicans day #4 diflucan cont 10-14 day course can make the diflucan oral starting tomorrow IV cefepime was d/c as no bacterial pathogens have been recovered in his urine cultures (3) Hydronephrosis concurrent with and due to calculi of kidney and ureter: Plan: s/p L ureteral stent deployment by Dr Garcia on 04/10/21. CT this admission with stent in good position. 8mm stone on left stable. Urology has seen - no surgical intervention until of this week at earliest. To have lithotripsy on . 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 (5) Diabetes mellitus: Plan: a1c 8.6% earlier this month. cont basal-bolus insulin but increase lantus to 12 units BID. (6) CAD (coronary artery disease): Plan: No symptoms of CAD at this time. Continue statin, BB, asa. (7) Hypertension: Plan: Still hodling HCTZ and losartan given recent SUE. BPs acceptable without them. Cont metoprolol. (8) Atrial fibrillation: Plan: continue heparin drip while coumadin is on hold. resumption of coumadin depends on timing of urological procedures. suspect we would resume coumadin late . continue beta vivian. (9) SUE (acute kidney injury): Plan: Presenting Cr 1.49, prior baseline less than 1. Cr 1 today. stop IV fluids. (10) Ectatic thoracic aorta: Plan: 4.1cm nothing to do at this time continue beta vivian (11) Pacemaker: Plan: functioning appropriately (12) Hyponatremia: Plan: 2nd to volume contraction resolved s/p IV fluids stop fluids today (13) Hypokalemia: Plan: replaced and resolved (14) DVT prophylaxis: Plan: heparin drip (15) Anemia: Plan: 2 gram drop over 48 hour period no overt GI bleeding repeat cbc in am for stability if H/H cont to drop check Fe studies, fecal occult blood, etc. (16) Chronic cough: Plan: present x years add josephine dx previously with post-nasal drip syndrome losartan could potentially contribute consider holding losartan for several weeks to see if any improvement CT chest done 04/18/21 as outpatient - multiple pulmonary nodules - all smaller in size in comparison to previous CT. No infiltrates/pneumonia/fluid. Plan: left message for family 04/24 updated pt's son 04/25 Admission and Anticipated Discharge Date Admission Date: April 22, 2021 Subjective patient feels MUCH better today COPIOUS # of stools s/p golytely yesterday bloating and nausea resolved tolerating clears - asks for diet to be advanced has chronic cough "for years" and has been told it is due to post-nasal drip syndrome some sputum at times no dyspnea voiding frequently but no difficulty doing such and no dysuria tele overnight - paced or a.fib Review of Systems Review of Systems: gen - no fevers, chills, or anorexia CV - no pain Pulm - no dyspnea or CABALLERO GI - no abd pain, bloating resolved; no nausea - no hematuria Physical Exam Physical Exam: gen - sitting in chair, looks much better today mouth - MMM today neck - no JVD heart - irregular, s1 s2, no murmur lungs - CTA b/l abd - distension minimal today (improved from yesterday's exam), BS+, NT ext - no edema, pulses 2+ b/l Results & Data Results & Data ([facility]) Vital Signs (Past 12 Hours) Vital Signs Temp Pulse Resp BP Pulse Ox 04/25/21 19:45 36.9 C 63 16 153/69 H 96 04/25/21 16:07 36.6 C 70 18 159/69 H 98 04/25/21 11:07 36.6 C 60 18 133/72 96 Laboratory Results Laboratory Results - last 24 hr 04/25/21 04/25/21 04/25/21 06:43 06:43 06:43 WBC 7.43 RBC 3.10 L Hgb 9.3 L Hct 28.8 L MCV 92.9 MCH 30.0 MCHC 32.3 RDW Std Deviation 48.4 H RDW Coeff of Suzy 14.2 Plt Count 194 MPV 10.5 H APTT 47.5 H* PTT Ratio 1.8 Sodium 138 Potassium 3.7 Chloride 105 Carbon Dioxide 25 Anion Gap 8.0 BUN 13 Creatinine 1.09 Est Cr Clr Drug Dosing 86.2 Est GFR ( Amer) 81.0 Est GFR (Non-Af Amer) 69.9 BUN/Creatinine Ratio 11.7 Glucose 147 H POC Glucose Calcium 8.6 Magnesium 2.7 H 04/25/21 04/25/21 04/25/21 07:51 11:30 16:28 WBC RBC Hgb Hct MCV MCH MCHC RDW Std Deviation RDW Coeff of Suzy Plt Count MPV APTT PTT Ratio Sodium Potassium Chloride Carbon Dioxide Anion Gap BUN Creatinine Est Cr Clr Drug Dosing Est GFR ( Amer) Est GFR (Non-Af Amer) BUN/Creatinine Ratio Glucose POC Glucose 153 H 162 H 178 H Calcium Magnesium 04/25/21 20:06 WBC RBC Hgb Hct MCV MCH MCHC RDW Std Deviation RDW Coeff of Suzy Plt Count MPV APTT PTT Ratio Sodium Potassium Chloride Carbon Dioxide Anion Gap BUN Creatinine Est Cr Clr Drug Dosing Est GFR ( Amer) Est GFR (Non-Af Amer) BUN/Creatinine Ratio Glucose POC Glucose 159 H Calcium Magnesium PG Care Time/CCT Total # of Minutes Spent Total Time Spent with Patient: Total time spent is greater than 50% in coordination of care (as documented) at patient's floor/unit and/or counseling patient: Coding Level of Care Code 10413 Subseq Hosp Care Lvl 3 Diagnoses Constipation K59.00 Candidal UTI (urinary tract infection) B37.49 Hydronephrosis concurrent with and due to calculi of kidney and ureter N13.2 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
[2021-04-26] MEDS: ACETAMINOPHEN 325 MG TAB PO PRN ×2 (02:58→09:59)
[2021-04-26 06:30] LABS: Hemoglobin 8.7 g/dL (14.0-18.0)
[2021-04-26 06:59] LABS: Calcium 8.8 mg/dl (8.5-10.1); Est GFR (Non-African American) 69.9 ml/min; Partial Thromboplastin Ratio 1.9; Potassium 3.7 mmol/L (3.5-5.1)
[2021-04-26 07:18] LABS: Partial Thromboplastin Time 49.5 Seconds (21.0-31.0)
[2021-04-26] MEDS: SENNA 8.6 MG TAB PO SCH (07:49)
[2021-04-26] MEDS: ASPIRIN 81 MG ECTAB PO SCH (07:49)
[2021-04-26] MEDS: BENZONATATE 100 MG CAPSULE PO SCH ×3 (07:49→21:17)
[2021-04-26] MEDS: TAMSULOSIN HCL 0.4 MG CAP PO SCH (07:49)
[2021-04-26] MEDS: METOPROLOL SUCC 25MG EXT REL TAB PO SCH (07:50)
[2021-04-26] MEDS: FLUCONAZOLE 100 MG TAB PO SCH (07:50)
[2021-04-26] MEDS: POLYETHYLENE (MIRALAX) 17 GM PACK PO SCH ×2 (07:51→21:18)
[2021-04-26] MEDS: INSULIN GLARGINE SOLOSTAR 100 UNITS/ML 3 ML PEN SC SCH ×2 (07:51→21:17)
[2021-04-26] MEDS: INSULIN ASPART 100 UNITS/ML 3 ML PEN SC SCH ×4 (07:52→21:18)
--- NOTE | 2021-04-26 08:14 | Urology Progress Note ---
Date of Service April 26, 2021 Assessment & Plan (1) Left ureteral calculus: (2) Candidal UTI (urinary tract infection): Plan: - Patient afebrile, nontoxic - Lab work reviewed - creatinine and WBC within normal limits - Urine culture positive for Grace albicans/dubliniensis - Preliminary blood cultures no growth after 48 hours - Received 4 days of IV Diflucan so far, transitioning to PO Diflucan today per hospital team notes - Continue supportive care, antifungal, bowel regimen, and management per primary team - Plan for stone treatment surgery as scheduled tomorrow, presuming he remains afebrile and no acute clinical changes - Will make patient NPO after midnight - Reviewed with Dr. Field, maryay to continue heparin or resume Coumadin from urology standpoint. - Will continue to follow while inpatient Admission and Anticipated Discharge Date Admission Date: April 22, 2021 Supervising Physician Co-Signing Physician Notes Discussed patient and plan with KERRI. Agree with above. Subjective Patient seen and examined at bedside. He is awake, alert, and non-toxic in appearance. Feeling better overall since yesterday. Tolerating diet without nausea or vomiting. Reports intermittent abdominal bloating. Reports small bowel movements, but no substantial bowel movement. Denies flank or abdominal pain. Voiding spontaneously, denies hematuria or dysuria. Reports episode of feeling sweaty and then cold overnight, but denies overt fever/chills. Per chart review, afebrile overnight, Tmax 37.6. No chest pain or shortness of breath. Review of Systems Constitutional: as per Subjective / HPI Respiratory: as per Subjective / HPI Cardiovascular: as per Subjective / HPI Gastrointestinal: as per Subjective / HPI Genitourinary: + as per Subjective / HPI Physical Exam Constitutional: well developed, well nourished and + obese; no acute distress and not ill appearing Respiratory: normal respiratory effort and able to speak in complete sentences; no respiratory distress and no labored breathing Cardiovascular: Extremities: no pedal edema Gastrointestinal (Abdomen): Inspection/Auscultation: abdomen normal to inspection and + abdomen distended (mild) Percussion/Palpation: abdomen soft; abdomen nontender and no guarding Musculoskeletal: Head/Neck/Chest: normocephalic and head atraumatic Neurologic: moves all extremities and awake Psychiatric: Orientation: alert and oriented x 3 Genitourinary: no CVA tenderness Results & Data ([facility]) Vital Signs (Past 12 Hours) Vital Signs Temp Pulse Pulse Resp BP Pulse Ox 04/26/21 07:00 36.8 C 64 20 163/86 H 97 04/26/21 03:00 37.6 C H 57 L 18 163/75 H 94 04/25/21 23:20 37.0 C 63 18 149/68 H 97 04/25/21 22:19 54 L PG Care Time/CCT Total # of Minutes Spent Total Time Spent with Patient: Total time spent is greater than 50% in coordination of care (as documented) at patient's floor/unit and/or counseling patient: Coding Level of Care Code 08449 Subseq Hosp Care Lvl 2 Diagnoses Left ureteral calculus N20.1 Candidal UTI (urinary tract infection) B37.49
[2021-04-26] MEDS ORDERED: HOLD ORDER ONE (08:45)
[2021-04-26] MEDS: HEPARIN SODIUM/DEXTROSE 25,000 UNITS/500 ML BAG IV SCH ×2 (09:17→09:18)
[2021-04-26] MEDS: PANTOprazole 40 MG TAB PO SCH (09:59)
[2021-04-26 12:18] LABS: Hematocrit (blood only) 30.6 % (42-52); Hemoglobin 9.9 g/dL (14.0-18.0)
[2021-04-26 12:36] LABS: Ferritin 600.4 ng/ml (8-388)
[2021-04-26 13:39] LABS: Folate (Folic Acid) > 20.00 ng/ml (>5.38); Vitamin B12 877 pg/ml (193-986)
--- NOTE | 2021-04-26 13:44 | XRay Report ---
XR abdomen min 2V CLINICAL HISTORY: early satiety, recent ileus, interval change COMPARISON STUDY: April 24, 2021 FINDINGS: Multiple nondilated stool and gas filled loops of bowel are seen throughout the abdomen. Stable position of left-sided double-J ureteral stent. Small left pleural effusion is again seen. Degenerative changes of the spine. Distal pacemaker leads, midline sternotomy wires, tortuous aorta, prostatic seeds and prosthetic left hip joint are again seen. IMPRESSION: 1. Nonobstructive bowel gas pattern. 2. Small left pleural effusion. 3. Degenerative changes of the spine. 4. The rest of findings as above. ACT 112: Negative or not required by law. The above report was generated using voice recognition software. It may contain grammatical, syntax o r spelling errors. Electronically signed by: Radha Mcdermott DO 04/26/2021 1:43 PM
--- NOTE | 2021-04-26 16:49 | Anesthesiology Consultation ---
Date of Service April 26, 2021 Assessment & Plan (1) Encounter for pre-operative examination: Chart Review Chart Review: Acceptable Risk for Surgery and Patient NOT seen in Pre Admission Testing Consults Requested none History Surgery Operation Date: 04/27/21 10:35 Proposed Procedures p Cystoscopy, Ureteronephroscopy, Retrograde Pyelogram, Possible Ureteral Dilation, Laser Destruction or Extraction of the Stone, Left Insertion or Exchange of Stent Catheter - Sudhir Field MD Height/Weight Height: 6 ft Weight: 117.3 kg Allergies Allergy/AdvReac Type Severity Reaction Status Date / Time No Known Allergies Allergy Verified 04/21/21 20:13 Medications Home Medications Medication Instructions Recorded Confirmed Last Taken aspirin 81 mg tablet,delayed 81 mg PO QAM 06/26/18 04/21/21 04/21/21 release losartan 50 mg tablet 50 mg PO QAM 06/26/18 04/21/21 04/21/21 metoprolol succinate 25 mg 25 mg PO QAM 06/26/18 04/21/21 04/21/21 tablet,extended release 24 hr hydrochlorothiazide 25 mg tablet 25 mg PO QAM 06/23/19 04/21/21 04/21/21 meclizine 25 mg tablet 25 mg PO TID PRN #30 tab 06/24/19 04/21/21 07/01/20 Carnivora 250 mcg PO BID 01/26/20 04/21/21 04/21/21 Nattokinase Plus 1 tab PO DAILY 01/26/20 04/21/21 04/21/21 coenzyme Q10 200 mg capsule (Co 200 mg PO DAILY 01/26/20 04/21/21 04/21/21 Q-10) warfarin 5 mg tablet 5 - 10 mg PO UD tab 02/23/20 04/21/21 04/20/21 5 mg indomethacin 25 mg capsule 50 mg PO BID PRN 04/08/20 04/21/21 04/08/21 leuprolide 7.5 mg intramuscular 7.5 mg IM DIRECTED 10/04/20 04/21/21 04/14/21 atorvastatin 40 mg tablet 40 mg PO HS #90 tab 10/10/20 04/21/21 04/20/21 ascorbic acid (vitamin C) 500 mg 500 mg PO BID cap 01/09/21 04/21/21 04/21/21 capsule sitagliptin 50 mg-metformin ER 1 tab PO BID 04/09/21 04/21/21 04/21/21 1,000 mg tablet,extended release 24h mp (Janumet XR) phenazopyridine 200 mg tablet 200 mg PO TID PRN #14 tab 04/11/21 04/21/21 Unknown (Pyridium) polyethylene glycol 3350 17 gram 17 g PO DAILY PRN #30 ea 04/11/21 04/21/21 Unknown oral powder packet (Miralax) fluconazole 150 mg tablet 150 mg PO DAILY 2 Days #2 tab 04/20/21 04/21/21 Unknown (Diflucan) tamsulosin 0.4 mg capsule 0.4 mg PO QAM 04/20/21 04/21/21 04/21/21 acetaminophen 500 mg tablet 500 mg PO Q6H PRN 04/21/21 04/21/21 04/21/21 10:00 (Tylenol Extra Strength) 1000 mg Active Medications Generic Name Dose Route Start Last Admin Trade Name Freq PRN Reason Stop Dose Admin Acetaminophen 650 mg 04/22/21 19:22 04/26/21 09:59 Acetaminophen 325 Mg Tab PO 05/22/21 19:21 650 mg Q6H PRN Administration fever, pain Aspirin 81 mg 04/22/21 09:00 04/26/21 07:49 Aspirin 81 Mg Ectab PO 05/22/21 08:59 81 mg QAM JOSEP Administration Atorvastatin Calcium 40 mg 04/22/21 21:00 04/25/21 20:32 Atorvastatin 40 Mg Tab PO 05/22/21 20:59 40 mg HS JOSEP Administration Benzonatate 100 mg 04/25/21 14:00 04/26/21 14:31 Benzonatate 100 Mg Capsule PO 05/25/21 13:59 100 mg TID JOSEP Administration Bisacodyl 10 mg 04/23/21 08:35 04/23/21 16:59 Bisacodyl 10 Mg Supp MO 05/23/21 08:34 10 mg DAILY PRN Administration Constipation Fluconazole 200 mg 04/26/21 09:00 04/26/21 07:50 Fluconazole 100 Mg Tab PO 05/06/21 08:59 200 mg QAM JOSEP Administration Heparin Sodium/Dextrose 25,000 units in 500 mls @ 0 mls/hr 04/22/21 12:30 04/26/21 09:18 Heparin Sodium/Dextrose IV 05/22/21 12:29 Not Given .Q0M JOSEP Protocol 0 UNITS/HR Insulin Aspart 0 units 04/22/21 16:30 04/26/21 12:32 Insulin Aspart 100 Units/Ml 3 Ml Pen SC 05/22/21 16:29 2 units ACHS JOSEP Administration Insulin Glargine 12 units 04/25/21 09:00 04/26/21 07:51 Insulin Glargine Solostar 100 Units/Ml 3 Ml Pen SC 05/25/21 08:59 12 units BID JOSEP Administration Metoprolol Succinate 25 mg 04/22/21 09:00 04/26/21 07:50 Metoprolol Succ 25mg Ext Rel Tab PO 05/22/21 08:59 25 mg QAM JOSEP Administration Pantoprazole Sodium 40 mg 04/26/21 09:00 04/26/21 09:59 Pantoprazole 40 Mg Tab PO 05/26/21 08:59 40 mg QAM JOSEP Administration Polyethylene Glycol 1 gm 04/23/21 21:00 04/26/21 07:51 Polyethylene (Miralax) 17 Gm Pack PO 05/23/21 20:59 1 gm BID JOSEP Administration Sennosides 8.6 mg 04/23/21 21:30 04/26/21 07:49 Senna 8.6 Mg Tab PO 05/23/21 21:29 8.6 mg QAM JOSEP Administration Sodium Biphosphate/Sodium Phosphate 132 ml 04/23/21 08:35 04/23/21 08:55 Sod Phosphate/Sod Biphosphate Enema 132 Ml Btl MO 05/23/21 08:34 132 ml DAILY PRN Administration Constipation Tamsulosin HCl 0.4 mg 04/22/21 09:00 04/26/21 07:49 Tamsulosin Hcl 0.4 Mg Cap PO 05/22/21 08:59 0.4 mg QAM JOSEP Administration Past Medical History Medical History CAD S/P percutaneous coronary angioplasty Diabetic peripheral neuropathy associated with type 2 diabetes mellitus Diverticulosis of colon Gout Hydronephrosis of left kidney Intracanalicular fibroadenoma Loss of protective sensation of skin of foot wears a special boot Obesity ALISSA (obstructive sleep apnea) no device Paroxysmal atrial fibrillation Pre-ulcerative corn or callous Prostate cancer (10/14/15) radiation and seed and now on lupron Sciatica Surgical wound present right foot and no longer has infection and follows with wound clinic 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 Claude Licea retrograde pyelogram with stent placement Status post laser lithotripsy of ureteral calculus 02/2019. LMA #5. No issues. Status post right foot surgery Social History Smoking Status: Never smoker Hx Alcohol Use: Yes Alcohol type: beer alcohol intake frequency: holidays/special occasions only Hx Substance Use: No substance use type: does not use Physical Exam Vital Signs Last Vital Signs Temp 36.5 C 04/26/21 16:00 Pulse 64 04/26/21 16:00 Resp 20 04/26/21 16:00 BP 139/74 04/26/21 16:00 Pulse Ox 98 04/26/21 16:00 Testing Laboratory Results 04/26/21 11:51 04/26/21 05:53 PT 12.5 Seconds (9.0-12.0) H 04/22/21 00:06 INR 1.3 (0.9-1.1) H 04/22/21 00:06 APTT 49.5 Seconds (21.0-31.0) H* 04/26/21 05:53 Urine Color Dark Yellow 04/21/21 19:38 Urine Appearance Cloudy (Clear) A 04/21/21 19:38 Urine pH 5.5 (4.5-7.5) 04/21/21 19:38 Ur Specific [place] 1.022 (1.000-1.030) 04/21/21 19:38 Urine Protein 1+ (Negative) H 04/21/21 19:38 Urine Glucose (UA) Negative (Negative) 04/21/21 19:38 Urine Ketones Trace (Negative) H 04/21/21 19:38 Urine Nitrite Negative (Negative) 04/21/21 19:38 Ur Leukocyte Esterase 3+ (Negative) H 04/21/21 19:38 Urine WBC (Auto) >30 /hpf (0-5) H 04/21/21 19:38 Urine RBC (Auto) 10-30 /hpf (0-4) H 04/21/21 19:38 U Hyaline Cast (Auto) 1-5 /lpf (0-5) 04/21/21 19:38 U Epithel Cells (Auto) 5-10 /lpf (0-5) H 04/21/21 19:38 Urine Bacteria (Auto) Negative (Negative) 04/21/21 19:38 04/22/21 00:06 Aerobic Blood Culture - Preliminary Blood No growth in Aerobic bottle after 48 hours. Anaerobic Blood Culture - Preliminary No growth in Anaerobic bottle after 48 hours. 04/21/21 22:15 Aerobic Blood Culture - Preliminary Blood No growth in Aerobic bottle after 48 hours. Anaerobic Blood Culture - Preliminary No growth in Anaerobic bottle after 48 hours. 04/21/21 19:38 Urine Culture - Final Urine,Clean Catch Grace albicans/dubliniensis 04/26/21 04/26/21 11:37 07:43 POC Glucose 148 H 143 H Other Testing Electrocardiogram Date: 04/09/21 V -paced at 61 Echocardiogram Date: 05/05/20 EF: 52% LV Function: normal RWMA: + none Other Findings: + atrial enlargement (LA severely enlarged) and + LVH (mild) Valvular Disease: + MR (mild) TR-moderate Stress Test Date: 12/03/17 Type: exercise Findings: + WNL
[2021-04-26] MEDS: ATORVASTATIN 40 MG TAB PO SCH (21:17)
--- NOTE | 2021-04-26 22:33 | Hospitalist Progress Note ---
Date of Service April 26, 2021 Assessment & Plan (1) Anemia: Plan: Hb 13.5 on 04/09/21 now in the 9's stool checked and heme negative today iron studies - Fe deficiency (low iron, low transferrin sat); high ferritin c/w acute phase; consider Fe supplementation folate/b12 wnl check retic in am, but doubt hemolysis - no evidence of such frequent blood draws over the last 2-3 weeks may have played a role in worsening anemia (2) Constipation: Plan: resolved abd x-rays checked today - ileus resolved, mild stool only (mostly right-sided) (3) Candidal UTI (urinary tract infection): Plan: c albicans day #5 diflucan cont 10-14 day course this is a COMPLICATED UTI given the ureteral stent (4) Hydronephrosis concurrent with and due to calculi of kidney and ureter: Plan: s/p L ureteral stent deployment by Dr Garcia on 04/10/21. CT this admission with stent in good position. 8mm stone on left stable. spoke with urology - confirmed that lithotripsy is scheduled for tomorrow. cont flomax if H/H remain stable overnight medically can proceed with litho. 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 (6) Diabetes mellitus: Plan: a1c 8.6% earlier this month. cont basal-bolus insulin. BSGs <200. (7) CAD (coronary artery disease): Plan: No symptoms of CAD at this time. Continue statin, BB, asa. (8) Hypertension: Plan: Cont metoprolol. Can likely resume HCTZ and/or SUJATHA next 1-2 days as BPs are rising. (9) Atrial fibrillation: Plan: stopped heparin drip today due to concern of dropping H/H and GI bleeding. heme negative stool fortunately. lithotripsy tomorrow - simply keep heparin off until that time, then resume post-op when ok w/ urology. (10) SUE (acute kidney injury): Plan: Presenting Cr 1.49. Resolved. Cr today stable. (11) Ectatic thoracic aorta: Plan: 4.1cm nothing to do at this time continue beta vivian (12) Pacemaker: Plan: functioning appropriately (13) Hyponatremia: Plan: resolved (14) Hypokalemia: Plan: replaced and resolved (15) DVT prophylaxis: Plan: heparin drip placed on hold today (16) Chronic cough: Plan: present x years cont tessalon TID dx previously with post-nasal drip syndrome losartan could potentially contribute consider holding losartan for several weeks to see if any improvement CT chest done 04/18/21 as outpatient - multiple pulmonary nodules - all smaller in size in comparison to previous CT. No infiltrates/pneumonia/fluid. Plan: left message for family 04/24 updated pt's son 04/25 care d/w urology today Admission and Anticipated Discharge Date Admission Date: April 22, 2021 Subjective patient c/o mild bloating - improved from previous visits - but [id number] has some residual bloating copious flatus no nausea/emesis nursing flowsheet documented 100% of breakfast consumed no abd pain no flank pain no fever no dyspnea scheduled for lithotripsy tomorrow tele overnight - a.fib and pacing Review of Systems Review of Systems: gen - no fevers/chills CV - no chest pain/orthopnea pulm - no dyspnea - no hematuria GI - no melena or BRBPR Physical Exam Physical Exam: gen - sitting in chair, looks good skin - mild pallor mouth - MMM neck - no JVD heart - irregular, s1 s2, no murmur lungs - CTA b/l, mildly decreased BS bases abd - soft, NT, ND, BS+, no HSM; distension essentially resolved ext - no edema, pulses 2+ b/l psych - a/o x 3 Results & Data Results & Data ([facility]) Vital Signs (Past 12 Hours) Vital Signs Temp Pulse Pulse Resp BP Pulse Ox 04/26/21 20:23 37.1 C 61 18 154/71 H 94 04/26/21 16:00 36.5 C 64 20 139/74 98 04/26/21 15:04 62 04/26/21 11:00 36.7 C 60 20 159/80 H 96 Laboratory Results Laboratory Results - last 24 hr 04/26/21 04/26/21 04/26/21 05:53 05:53 05:54 Hgb 8.7 L Hct 27.0 L APTT 49.5 H* PTT Ratio 1.9 Sodium 138 Potassium 3.7 Chloride 105 Carbon Dioxide 27 Anion Gap 6.0 BUN 13 Creatinine 1.09 Est Cr Clr Drug Dosing 87.0 Est GFR ( Amer) 81.0 Est GFR (Non-Af Amer) 69.9 BUN/Creatinine Ratio 12.0 Glucose 136 H POC Glucose Calcium 8.8 Iron Transferrin Transferrin % Sat Ferritin Vitamin B12 Folate Stool Occult Bld Scrn 04/26/21 04/26/21 04/26/21 07:43 11:37 11:51 Hgb Hct APTT PTT Ratio Sodium Potassium Chloride Carbon Dioxide Anion Gap BUN Creatinine Est Cr Clr Drug Dosing Est GFR ( Amer) Est GFR (Non-Af Amer) BUN/Creatinine Ratio Glucose POC Glucose 143 H 148 H Calcium Iron 26 L Transferrin 127 L Transferrin % Sat 14 L Ferritin 600.4 H Vitamin B12 Folate Stool Occult Bld Scrn 04/26/21 04/26/21 04/26/21 11:51 11:51 14:50 Hgb 9.9 L Hct 30.6 L APTT PTT Ratio Sodium Potassium Chloride Carbon Dioxide Anion Gap BUN Creatinine Est Cr Clr Drug Dosing Est GFR ( Amer) Est GFR (Non-Af Amer) BUN/Creatinine Ratio Glucose POC Glucose Calcium Iron Transferrin Transferrin % Sat Ferritin Vitamin B12 877 Folate > 20.00 Stool Occult Bld Scrn Negative 04/26/21 04/26/21 16:45 21:06 Hgb Hct APTT PTT Ratio Sodium Potassium Chloride Carbon Dioxide Anion Gap BUN Creatinine Est Cr Clr Drug Dosing Est GFR ( Amer) Est GFR (Non-Af Amer) BUN/Creatinine Ratio Glucose POC Glucose 116 H 173 H Calcium Iron Transferrin Transferrin % Sat Ferritin Vitamin B12 Folate Stool Occult Bld Scrn PG Care Time/CCT Total # of Minutes Spent Total Time Spent with Patient: Total time spent is greater than 50% in coordination of care (as documented) at patient's floor/unit and/or counseling patient: Coding Level of Care Code 84616 Subseq Hosp Care Lvl 3 Diagnoses Constipation K59.00 Candidal UTI (urinary tract infection) B37.49 Hydronephrosis concurrent with and due to calculi of kidney and ureter N13.2 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
[2021-04-27 07:23] LABS: Hematocrit (blood only) 31.1 % (42-52); Hemoglobin 9.7 g/dL (14.0-18.0); Mean Corpuscular Hemoglobin 29.3 pg (25-34); Mean Corpuscular Hgb Conc 31.2 g/dL (32-36); Mean Platelet Volume 10.6 fL (7.4-10.4); Platelet Count 232 K/uL (130-400); RDW Coefficient of Variation 14.4 % (11.5-14.5); RDW Standard Deviation 49.7 fL (36.4-46.3); Red Blood Count 3.31 M/uL (4.7-6.1); Reticulocyte % 1.4 % (0.5-2.0); Reticulocytes # 0.05 10^6/uL (0.02-0.10); White Blood Count 6.65 K/uL (4.8-10.8)
--- NOTE | 2021-04-27 07:41 | Urology Progress Note ---
Date of Service April 27, 2021 Assessment & Plan (1) Left ureteral calculus: (2) Candidal UTI (urinary tract infection): Plan: 65 year-old male patient, s/p left ureteral stent placement on 04/10/21, admitted with weakness, UTI, left-sided hydronephrosis. - Patient remains afebrile, nontoxic. - Lab work reviewed - white count normal, hemoglobin and creatinine stable. - Urine culture positive for Grace albicans/dubliniensis. - Preliminary blood cultures no growth after 48 hours. - Continue supportive care, antifungal, bowel regimen, and management per primary team. - Keep NPO for planned procedure today. - Will proceed with OR for cystoscopy, left retrograde pyelogram, left ureteroscopy, laser lithotripsy/stone treatment, and left stent exchange. - Risks and benefits of procedure discussed and to be reviewed with patient by Dr. Field. - OR notified. Preoperative CXR and EKG in chart. COVID-19 negative. Will cover with IV Ciprofloxacin preoperatively. - Continue to follow while inpatient. Admission and Anticipated Discharge Date Admission Date: April 22, 2021 Subjective Patient seen and examined at bedside. He is awake, alert, and non-toxic in appearance. He reports he is feeling good overall. Has been NPO since midnight. Denies nausea or vomiting. Denies flank or abdominal pain. Voiding spontaneously, denies hematuria or dysuria. Denies fevers or chills. No chest pain or shortness of breath. No stone passage since admission. Chart review: Afebrile Wbc 6.65 Hgb 9.7 Creatinine 1.19 Urine culture with Grace albicans/dubliniensis. Preliminary blood cultures no growth after 48 hours. Transitioned 04/26 to PO Diflucan. Denies additional urologic concerns today. Review of Systems Constitutional: as per Subjective / HPI Respiratory: as per Subjective / HPI Cardiovascular: as per Subjective / HPI Gastrointestinal: as per Subjective / HPI Genitourinary: + as per Subjective / HPI Physical Exam Constitutional: well developed, well nourished and + obese; no acute distress and not ill appearing Respiratory: normal respiratory effort and able to speak in complete sentences; no respiratory distress and no labored breathing Cardiovascular: Extremities: no pedal edema Gastrointestinal (Abdomen): Inspection/Auscultation: abdomen normal to inspection and + abdomen distended (mild) Percussion/Palpation: abdomen soft; abdomen nontender and no guarding Musculoskeletal: Head/Neck/Chest: normocephalic and head atraumatic Neurologic: moves all extremities and awake Psychiatric: Orientation: alert and oriented x 3 Genitourinary: no CVA tenderness Results & Data ([facility]) Vital Signs (Past 12 Hours) Vital Signs Temp Pulse Pulse Resp BP Pulse Ox 04/27/21 04:00 36.9 C 64 18 144/74 H 93 04/27/21 00:44 60 04/27/21 00:03 36.8 C 66 18 161/79 H 96 04/26/21 20:23 37.1 C 61 18 154/71 H 94 PG Care Time/CCT Total # of Minutes Spent Total Time Spent with Patient: Total time spent is greater than 50% in coordination of care (as documented) at patient's floor/unit and/or counseling patient: Coding Level of Care Code 30865 Subseq Hosp Care Lvl 2 Diagnoses Left ureteral calculus N20.1 Candidal UTI (urinary tract infection) B37.49
[2021-04-27 07:52] LABS: BUN Creatinine Ratio 10.6 (10-20); Calcium 8.6 mg/dl (8.5-10.1); Creatinine Clr Calc Pharmacy 79.5 ml/min; Est GFR (African American) 72.8 ml/min; Est GFR (Non-African American) 62.8 ml/min; Potassium 4.1 mmol/L (3.5-5.1)
[2021-04-27] MEDS: BENZONATATE 100 MG CAPSULE PO SCH ×3 (08:25→20:53)
[2021-04-27] MEDS: TAMSULOSIN HCL 0.4 MG CAP PO SCH (08:25)
[2021-04-27] MEDS: METOPROLOL SUCC 25MG EXT REL TAB PO SCH (08:26)
[2021-04-27] MEDS: ASPIRIN 81 MG ECTAB PO SCH (08:26)
[2021-04-27] MEDS: SENNA 8.6 MG TAB PO SCH (08:27)
[2021-04-27] MEDS: FLUCONAZOLE 100 MG TAB PO SCH (08:27)
[2021-04-27] MEDS: PANTOprazole 40 MG TAB PO SCH (08:27)
[2021-04-27] MEDS: INSULIN ASPART 100 UNITS/ML 3 ML PEN SC SCH ×4 (09:13→21:44)
[2021-04-27] MEDS: INSULIN GLARGINE SOLOSTAR 100 UNITS/ML 3 ML PEN SC SCH ×2 (09:14→21:45)
[2021-04-27] MEDS: POLYETHYLENE (MIRALAX) 17 GM PACK PO SCH ×2 (09:15→20:53)
[2021-04-27] MEDS ORDERED: CIPROFLOXACIN 400MG / 200ML D5W IV ONE (10:48)
[2021-04-27] MEDS ORDERED: ATROPINE SULFATE 0.1 MG/ML 10ML SYR IV PRN (11:26)
[2021-04-27] MEDS ORDERED: ONDANSETRON INJ 2 MG/ML 2 ML VIAL IV PRN (11:26)
[2021-04-27] MEDS ORDERED: HYDROmorphone INJ 2 MG/ML SYR/VIAL IV PRN (11:26)
[2021-04-27] MEDS ORDERED: ePHEDrine sulfate 50 MG/ML AMP IV PRN (11:26)
[2021-04-27] MEDS ORDERED: fentaNYL citrate 100 MCG/2 ML VIAL IV PRN (11:26)
--- NOTE | 2021-04-27 13:12 | Fluoroscopy Report ---
INTRAOPERATIVE RADIOGRAPHS CLINICAL HISTORY: Left ureteral stent exchange. Fluoroscopy time: 15 seconds. FINDINGS: 6 spot fluoroscopic views of the left abdomen are correlated with abdominal CT dated 021. The initial image shows a wire in the distal left ureter. The second image shows a wire in the l eft renal pelvis. A lithotripsy device is advanced. The final image shows the proximal end of a left ureteral stent in appropriate position. IMPRESSION: Intraoperative images from a a laser lithotripsy and left ureteral stent placement proced ure as above. Electronically signed by: Tommy Hoover M.D. 04/27/2021 1:11 PM
[2021-04-27] MEDS ORDERED: PHENAZOPYRIDINE HCL 200 MG TAB PO STA (14:04)
[2021-04-27] MEDS ORDERED: SODIUM CHLORIDE 0.9% 1000ML 1,000 ML IV SCH (14:30)
--- NOTE | 2021-04-27 14:36 | Anesthesiology Progress Note ---
Date of Service April 27, 2021 Anesthesia Post Procedure Vital Signs Vital Signs: Temp Pulse Pulse Pulse Pulse Resp BP 04/27/21 13:55 37 C 62 18 04/27/21 13:30 36.8 C 60 22 04/27/21 13:20 60 19 04/27/21 13:10 61 15 04/27/21 13:00 60 20 04/27/21 12:51 36.3 C L 61 19 04/27/21 11:03 36.6 C 63 18 162/88 H 04/27/21 07:37 66 04/27/21 07:00 37.0 C 61 20 04/27/21 04:00 36.9 C 64 18 04/27/21 00:44 60 04/27/21 00:03 36.8 C 66 18 04/26/21 20:23 37.1 C 61 18 04/26/21 16:00 36.5 C 64 20 04/26/21 15:04 62 BP Pulse Ox 04/27/21 13:55 144/76 H 97 04/27/21 13:30 151/73 H 95 04/27/21 13:20 154/72 H 97 04/27/21 13:10 156/80 H 100 04/27/21 13:00 149/73 H 100 04/27/21 12:51 152/79 H 100 04/27/21 11:03 96 04/27/21 07:37 04/27/21 07:00 158/70 H 93 04/27/21 04:00 144/74 H 93 04/27/21 00:44 04/27/21 00:03 161/79 H 96 04/26/21 20:23 154/71 H 94 04/26/21 16:00 139/74 98 04/26/21 15:04 Pain Intensity Abdomen: Pain Intensity: 6 Head: Pain Intensity: 0 Transfer of Care Handoff Completed per policy Notes Mental Status: alert / awake / arousable and participated in evaluation Patient Amnestic to Procedure: Yes Nausea / Vomiting: adequately controlled Pain: adequately controlled Airway Patency, RR, SpO2: stable & adequate BP & HR: stable & adequate Hydration State: stable & adequate Anesthetic Complications: no major complications apparent and Pt Satisfied with anesthetic care
--- NOTE | 2021-04-27 20:13 | Communication Note ---
Date of Service: April 27, 2021 Subjective: Nursing notified me that the patient was having a fever to 38.9, RR of 30, and 79% on room air -> 90% on 3L. He had a left ureteral stent exchange today with urology. Patient was not able to talk with me, he woke up when I said his name loudly and quickly would go back to sleep. Through the night he became more and more responsive and was able to tell me that he was not in any pain and that he was just feeling weak. Objective: Vitals - patient febrile, tachypneic, BP 150's systolic, HR nl. tele - A. fib through the afternoon PE - General: responsive to voice, lethargic -> progressively more responsive, following commands Neuro: moving all extremities Lungs: difficult to hear breath sounds based on body habitus, moving air well no increased work of breathing Abdomen: soft, nTTP Labs - negative MRSA nasal swab 04/22 lactate 1.4 creatinine elevated to 1.4 A/P 65 yo M w/ left ureteral stent s/p stent exchange today presently with fevers, new oxygen requirement and lethargy Differential includes: bacteremia and fungemia Discussed the case with day time provider that this may be spreading of the fungal urine infection - held fluconazole - started Caspofungin IV 70 mg on day 1 and 50 mg on going forward - started Cefepime for potential bacterial infection - CXR ordered given new oxygen requirement - found to have pulmonary vascular congestion - held fluids for now, consider lasix if increased oxygen requirement - KUB ordered given recent stent exchange - stent in place, normal bowel gas pattern - ordered blood cultures - continue to monitor overnight -> has progressively improved
--- NOTE | 2021-04-27 20:24 | XRay Report ---
XR chest 1V portable, XR KUB/Abdomen 1 view HISTORY: 65 years-old Male hypoxia acute hypoxia with fever and recent ureteral stent exchange COMPARISON: Fluoroscopic images of the abdomen of same day, CT abdomen pelvis and chest radiograph TECHNIQUE: Portable AP view the chest with KUB radiograph FINDINGS: CHEST: Cardiomegaly. Prior median sternotomy. Pulmonary vascular congestion. Unchanged blunting of the left costophrenic angle with mild asymmetric left lung base opacities suggestive of atelectasis/scarring. No pneumothorax, large pleural effusion or new airspace consolidation. Left subclavian pacer. Reverse right shoulder total joint arthroplasty. Chronic widening of the right AC joint. KUB: A left ureteral stent appears to be in satisfactory positioning. Brachytherapy seeds of the prostate. Renal shadows are obscured by bowel gas. The bilateral nephrolithiasis redemonstrated. No definite u reteral calculi are identified. Bowel gas pattern is nonobstructive. No pneumoperitoneum. Left hip to shyla joint arthroplasty. Degenerative changes of the spine, pelvis and right hip. IMPRESSION: 1. Cardiomegaly with pulmonary vascular congestion and unchanged left basilar atelectasis. 2. Satisfactory positioning of the left ureteral stent. No ureteral calculi identified. 3. Bilateral nephrolithiasis redemonstrated. 4. Nonobstructive bowel gas pattern. ACT 112: Negative or not required by law. The above report was generated using voice recognition software. It may contain grammatical, syntax o r spelling errors. Electronically signed by: Laureano Muñiz M.D. 04/27/2021 8:23 PM
[2021-04-27] MEDS: ACETAMINOPHEN 1,000 MG/100 ML VIAL IV PRN (20:25)
[2021-04-27] MEDS ORDERED: CASPOFUNGIN 70 MG in SODIUM CHLORIDE 0.9% 250 ML IV ONE (20:30)
[2021-04-27 20:47] LABS: Albumin Level 2.6 gm/dl (3.4-5.0); BUN Creatinine Ratio 11.2 (10-20); Calcium 8.6 mg/dl (8.5-10.1); Creatinine Clr Calc Pharmacy 66.6 ml/min; Est GFR (African American) 58.8 ml/min; Est GFR (Non-African American) 50.7 ml/min
[2021-04-27 20:50] LABS: Albumin Globulin Ratio 0.6 (0.9-2); Bilirubin,Total 0.7 mg/dl (0.2-1); Globulin 4.6 gm/dl (2.5-4.0); Total Protein 7.2 gm/dl (6.4-8.2)
[2021-04-27] MEDS: CEFEPIME 2,000 MG in SYRINGE 0 ML IV SCH (20:52)
[2021-04-27] MEDS: ATORVASTATIN 40 MG TAB PO SCH (20:53)
--- NOTE | 2021-04-27 21:47 | Hospitalist Progress Note ---
Date of Service April 27, 2021 Assessment & Plan (1) Hydronephrosis concurrent with and due to calculi of kidney and ureter: Plan: s/p L ureteral stent deployment by Dr Garcia on 04/10/21. CT this admission with stent in good position. 8mm stone on left. s/p laser litho by Dr Field today. No op note present if there were other procedures or findings. Post-op having rigors. No fever. I spoke with staff and if rigors continue then could offer small dose of demerol for such. If fevers occur then ruff-culture. Very possible that in the midst of his procedure he is having transient release of toxins from the [place] causing inflammatory response. Again low threshold for ruff-culture and broadening of antibiotics to include bacterial coverage. Cont diflucan. Add NS at 100cc/hr given poor oral intake. (2) Candidal UTI (urinary tract infection): Plan: c albicans day #6 diflucan cont 10-14 day course this is a COMPLICATED UTI given the ureteral stent and stone see #1 above (3) Anemia: Plan: Hb 13.5 on 04/09/21 now in the 9's stool checked and heme negative iron studies - Fe deficiency (low iron, low transferrin sat); high ferritin c/w acute phase; consider Fe supplementation folate/b12 wnl retic low suggesting he does indeed need iron replacement frequent blood draws over the last 2-3 weeks may have played a role in worsening anemia H/H stable today; repeat CBC am (4) Constipation: Plan: had resolved bowel maintenance senna+miralax (5) 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 (6) Diabetes mellitus: Plan: a1c 8.6% earlier this month. cont basal-bolus insulin. BSGs <200. (7) CAD (coronary artery disease): Plan: No symptoms of CAD at this time. Continue statin, BB, asa. (8) Hypertension: Plan: Cont metoprolol. Can likely resume HCTZ and/or SUJATHA next 1-2 days as BPs are rising. Defer on doing such today, however. (9) Atrial fibrillation: Plan: heparin resumed post-op by urology again heme neg stool H/H stable hold off on coumadin until we know that no further procedures are needed (10) SUE (acute kidney injury): Plan: Presenting Cr 1.49. Resolved. Cr again today stable. Cr in am. (11) Ectatic thoracic aorta: Plan: 4.1cm nothing to do at this time continue beta vivian (12) Pacemaker: Plan: functioning appropriately (13) Hyponatremia: Plan: resolved (14) Hypokalemia: Plan: replaced and resolved (15) DVT prophylaxis: Plan: heparin drip placed on hold pre-op resumed post-op by urology (16) Chronic cough: Plan: present x years cont tessalon TID dx previously with post-nasal drip syndrome losartan could potentially contribute consider holding losartan for several weeks to see if any improvement CT chest done 04/18/21 as outpatient - multiple pulmonary nodules - all smaller in size in comparison to previous CT. No infiltrates/pneumonia/fluid. f/u with pulmonary for all of these issues as outpatient Plan: left message for family 04/24 updated pt's son 04/25 updated pt's son perico, 04/27 discussed events of today Admission and Anticipated Discharge Date Admission Date: April 22, 2021 Subjective saw patient post-op from his cysto with laser litho he was feeling unwell post-surgery he c/o chills he was having active rigors during my visit he declined eating lunch did not have specific complaints except for simply feeling poorly, sore in his abdomen, and feeling cold tele overnight - pacing and a.fib prior to the cystoscopy he was feeling fine without fevers or chills of note - during the visit I checked his temp and it was 37.2 orally; BP was 150s systolic; o2 sats about 93% Review of Systems Review of Systems: gen - having chills, no fevers overnight or today; feels unwell, poor appetite CV - no chest pain pulm - baseline, chronic cough - no change; no dyspnea GI - bloating, soreness, no nausea - c/o dysuria since the cystoscopy Physical Exam Physical Exam: gen - active rigors, looks poorly and feels unwell skin - mild pallor mouth - MM dry neck - no JVD heart - irregular, s1 s2, no murmur lungs - CTA b/l abd - soft, NT, BS+, no HSM; distension still present - slightly worse than yesterday ext - no edema, pulses 2+ b/l psych - a/o x 3 Results & Data Results & Data ([facility]) Vital Signs (Past 12 Hours) Vital Signs Temp Pulse Pulse Resp BP BP Pulse Ox 04/27/21 15:00 37.7 C H 60 20 181/82 H 92 04/27/21 13:55 37 C 62 18 144/76 H 97 04/27/21 13:30 36.8 C 60 22 151/73 H 95 04/27/21 13:20 60 19 154/72 H 97 04/27/21 13:10 61 15 156/80 H 100 04/27/21 13:00 60 20 149/73 H 100 04/27/21 12:51 36.3 C L 61 19 152/79 H 100 04/27/21 11:03 36.6 C 63 18 162/88 H 96 Laboratory Results Hb 9.7 normal WBC Cr 1.19 PG Care Time/CCT Total # of Minutes Spent Total Time Spent with Patient: Total time spent is greater than 50% in coordination of care (as documented) at patient's floor/unit and/or counseling patient: Coding Level of Care Code 16568 Subseq Hosp Care Lvl 2 Diagnoses Anemia D64.9 Constipation K59.00 Candidal UTI (urinary tract infection) B37.49 Hydronephrosis concurrent with and due to calculi of kidney and ureter N13.2 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
[2021-04-28] MEDS: ACETAMINOPHEN 1,000 MG/100 ML VIAL IV PRN ×2 (05:02→15:23)
[2021-04-28] MEDS ORDERED: CIPROFLOXACIN / D5W 400 MG/200 ML BAG IV SCH (06:00)
[2021-04-28 07:29] LABS: Hematocrit (blood only) 30.1 % (42-52); Hemoglobin 9.8 g/dL (14.0-18.0); Mean Corpuscular Hemoglobin 29.9 pg (25-34); Mean Corpuscular Hgb Conc 32.6 g/dL (32-36); Mean Corpuscular Volume 91.8 fL (80-100); Mean Platelet Volume 10.7 fL (7.4-10.4); Platelet Count 170 K/uL (130-400); RDW Coefficient of Variation 14.9 % (11.5-14.5); Red Blood Count 3.28 M/uL (4.7-6.1); White Blood Count 12.48 K/uL (4.8-10.8)
[2021-04-28 07:56] LABS: BUN Creatinine Ratio 11.3 (10-20); Calcium 8.2 mg/dl (8.5-10.1); Est GFR (African American) 48.7 ml/min
[2021-04-28 08:13] LABS: Basophils # (auto) 0.01 K/uL (0-0.2); Basophils % (auto) 0.1 %; Dohle Bodies 1+; Eosinophils # (auto) 0.01 K/uL (0-0.5); Eosinophils % (auto) 0.1 %; Immature Granulocytes # (auto) 0.07 K/uL (0.00-0.02); Immature Granulocytes % (auto) 0.6 %; Lymphocytes # (auto) 0.19 K/uL (1.2-3.4); Lymphocytes % (auto) 1.5 %; Monocytes # (auto) 0.47 K/uL (0.11-0.59); Monocytes % (auto) 3.8 %; Neutrophils # (auto) 11.73 K/uL (1.4-6.5); Neutrophils % (auto) 93.9 %
--- NOTE | 2021-04-28 08:30 | Urology Progress Note ---
Date of Service April 28, 2021 Assessment & Plan (1) Left ureteral calculus: (2) Candidal UTI (urinary tract infection): Plan: 65 year-old male patient, s/p left ureteral stent placement on 04/10/21, admitted with weakness, UTI, left-sided hydronephrosis. - POD#1 cystoscopy, left ureteroscopy, laser lithotripsy/stone treatment, and left stent exchange with Dr. Field. - Patient unfortunately became febrile, hypoxic post procedure. T-max 39.6 C. - Lab work reviewed - white count mildly elevated, hemoglobin stable, creatinine this AM 1.66. - Urine culture 04/21 positive for Grace albicans/dubliniensis. - Initial blood cultures no growth, repeat blood cultures pending. - KUB obtained postop confirms satisfactory positioning of the left ureteral stent. - IV Caspofungin and Cefepime has been initiated by primary team. - Continue supportive care, IV antifungal, antibiotics, and close monitoring. - Will follow closely along with primary team. Admission and Anticipated Discharge Date Admission Date: April 22, 2021 Subjective POD#1 cystoscopy, left ureteroscopy, laser lithotripsy/stone treatment, and left stent exchange with Dr. Field. Unfortunately patient became febrile and hypoxic last evening. T-max overnight 39.6 C, recheck this AM 38.1 C. He required initiation of supplemental oxygen. This morning he is arousable to verbal stimuli, reports he feels fatigued. Reports he feels poorly, does not express specific complaints. Denies significant flank or abdominal pain. Does not currently feel feverish, but reports chills. Denies nausea or vomiting. He is oriented to person, place, time, and event. Denies dysuria but is unsure if he has had hematuria. Chart review: T-max overnight 39.6 C, recheck this AM 38.1 C. Wbc 12.48 Hgb 9.8 Creatinine 1.66 Urine culture 04/21 with Grace albicans/dubliniensis. Initial blood cultures no growth. Repeat blood cultures pending. Patient started on IV Caspofungin and Cefepime. KUB and chest x-ray reviewed: IMPRESSION: 1. Cardiomegaly with pulmonary vascular congestion and unchanged left basilar atelectasis. 2. Satisfactory positioning of the left ureteral stent. No ureteral calculi identified. 3. Bilateral nephrolithiasis re-demonstrated. 4. Nonobstructive bowel gas pattern. Denies additional urologic concerns today. Review of Systems Constitutional: as per Subjective / HPI Respiratory: as per Subjective / HPI Cardiovascular: as per Subjective / HPI Gastrointestinal: as per Subjective / HPI Genitourinary: + as per Subjective / HPI Physical Exam Constitutional: + ill appearing, cooperative and comfortable; no acute distress Feels unwell Respiratory: normal respiratory effort and able to speak in complete sentences; no respiratory distress and no audible wheezes On supplemental oxygen via nasal cannula Gastrointestinal (Abdomen): Inspection/Auscultation: abdomen normal to inspection and + abdomen distended (Mild) Percussion/Palpation: abdomen soft; abdomen nontender and no guarding Psychiatric: Orientation: oriented to person, oriented to place, oriented to time and cooperative Drowsy Genitourinary: no CVA tenderness Results & Data ([facility]) Vital Signs (Past 12 Hours) Vital Signs Temp Pulse Pulse Pulse Resp BP BP 04/28/21 08:20 38.1 C H 61 16 145/67 H 04/28/21 06:29 38.4 C H 04/28/21 04:58 39.6 C H 04/28/21 04:00 86 20 123/68 04/28/21 02:49 37.7 C H 04/28/21 01:21 36.7 C 04/28/21 00:39 80 04/27/21 23:33 36.5 C 74 22 129/76 04/27/21 22:55 38.8 C H 04/27/21 22:45 39.2 C H 84 22 126/74 04/27/21 21:48 37.2 C 92 H 24 Pulse Ox 04/28/21 08:20 96 04/28/21 06:29 04/28/21 04:58 04/28/21 04:00 95 04/28/21 02:49 04/28/21 01:21 04/28/21 00:39 04/27/21 23:33 94 04/27/21 22:55 04/27/21 22:45 96 04/27/21 21:48 93 PG Care Time/CCT Total # of Minutes Spent Total Time Spent with Patient: Total time spent is greater than 50% in coordina tion of care (as documented) at patient's floor/unit and/or counseling patient: Coding Level of Care Code 86983 Subseq Hosp Care Lvl 3 Diagnoses Left ureteral calculus N20.1 Candidal UTI (urinary tract infection) B37.49
[2021-04-28] MEDS: CEFEPIME 2,000 MG in SYRINGE 0 ML IV SCH ×2 (09:21→20:02)
[2021-04-28] MEDS: SENNA 8.6 MG TAB PO SCH (09:22)
[2021-04-28] MEDS: PHENAZOPYRIDINE HCL 100 MG TAB PO PRN ×2 (09:24→21:43)
[2021-04-28] MEDS: METOPROLOL SUCC 25MG EXT REL TAB PO SCH (09:24)
[2021-04-28] MEDS: TAMSULOSIN HCL 0.4 MG CAP PO SCH (09:25)
[2021-04-28] MEDS: ASPIRIN 81 MG ECTAB PO SCH (09:25)
[2021-04-28] MEDS: PANTOprazole 40 MG TAB PO SCH (09:25)
[2021-04-28] MEDS: BENZONATATE 100 MG CAPSULE PO SCH ×3 (09:25→20:03)
[2021-04-28] MEDS: INSULIN GLARGINE SOLOSTAR 100 UNITS/ML 3 ML PEN SC SCH ×2 (09:26→21:43)
[2021-04-28] MEDS: INSULIN ASPART 100 UNITS/ML 3 ML PEN SC SCH ×4 (09:26→21:44)
[2021-04-28] MEDS: POLYETHYLENE (MIRALAX) 17 GM PACK PO SCH ×2 (09:27→20:02)
--- NOTE | 2021-04-28 13:58 | Operative Report ---
PG Post Operative Report Pre & Post Diagnosis Operation Date: 04/27/21 10:35 Pre-Op Diagnosis: LEFT KIDNEY STONES Post-Op Diagnosis: LEFT KIDNEY STONES I identified the patient and participated in the time-out.: Yes Procedure Operation Date: 04/27/21 10:35 Actual Procedures p Ureteronephroscopy, Laser Destruction of the Stone, (Left) - Sudhir Field MD s Cystoscopy(Not Applicable) - Sudhir Field MD s Left Insertion of Stent Catheter(Left) - Sudhir Field MD Surgeon Duran Field MD Consumer Marketing Analyst none Estimated Blood Loss 0 Findings Consistent with Post-Op Diagnosis Specimens none Description of Procedure The patient was identified in the preoperative holding area, appropriate informed consents were reviewed and completed and the patient was transferred to the operative suite. Upon arrival, appropriate antibiotics and anesthesia were administered and the patient was placed in dorsal lithotomy position and prepped and draped in sterile fashion. To begin the case I passed a 22 Beninese cystoscope with 30 degree lens. Inspection revealed a healthy-appearing urethra and prostate. There was a left ureteral stent easily identified. The distal aspect of the stent was moderately encrusted with a white material consistent with possible yeast. I grasped the distal end of the stent and I withdrew it. The remainder of the stent was healthy in appearance and I was able to intubate it with a sensor wire which advanced to the kidney without difficulty. I then utilized a 10 Beninese double- lumen catheter introduce a second wire. Of note, the patient previously would did test positive for fungal UTI and has been under treatment for this infection. I advanced a flexible ureteroscope into the kidney and conducted a full inspection. There is a minimal amount of cloudiness and debris, we were able to irrigate and clear this area without difficulty. I was able to identify a stone which had likely been in the ureter previously but now been pushed retrograde into the upper pole of the kidney. Utilizing a 272 m laser fiber I was able to fragment the stone entirely. After performing repeat renoscopy to confirm that the kidney was free of large pieces, I performed a careful exit ureteroscopy which revealed a clear and healthy-appearing ureter. I replaced a new 6 Beninese by 2 6 cm double-J stent. There was a good curl in the kidney as well as the bladder. I irrigated the bladder again and concluded the case. There were no complications. He tolerated the procedure well. I attest to the content of the Intraoperative Record and any orders documented therein. Any exceptions are noted below.
[2021-04-28] MEDS ORDERED: ACETAMINOPHEN 500 MG TAB PO PRN (16:50)
[2021-04-28] MEDS: SODIUM CHLORIDE 0.9% 1000ML 1,000 ML IV SCH (17:05)
[2021-04-28] MEDS: ATORVASTATIN 40 MG TAB PO SCH (20:03)
[2021-04-28] MEDS: CASPOFUNGIN 50 MG in SODIUM CHLORIDE 0.9% 250 ML IV SCH (20:03)
--- NOTE | 2021-04-28 21:42 | Hospitalist Progress Note ---
Date of Service April 28, 2021 Assessment & Plan (1) Sepsis: Plan: 2nd to UTI in the setting of recent stent exchange, laser litho of left-sided kidney stone, etc. Had been on diflucan for fungal UTI up until his surgery yesterday. Post-operatively had severe rigors, then late last night developed fever. Had fever all night, leukocytosis on cbc this am, and SUE on BMP this morning. He feels poorly. Agree with current IV abx selection including cefepime for bacterial pathogens & caspofungin for fungal organisms. He did not have a repeat u/a and culture thus I ordered such. Blood cx's from last pm - drawn at time of fever - so far negative. Restart IV fluids. supportive care. (2) Candidal UTI (urinary tract infection): Plan: c albicans on prior 2 urine cultures. complicated UTI due to ureteral stent and kidney stone previously had received 6 days of IV/PO diflucan now on caspofungin repeat u/a and urine cx ordered (3) Hydronephrosis concurrent with and due to calculi of kidney and ureter: Plan: s/p L ureteral stent deployment by Dr Garcia on 04/10/21 for 8mm stone on left. POD #1 - s/p laser litho and stent exchange by Dr Field. Appreciate urology assistance. Post-op course complicated by #1 above. IV fluids, supportive care, bmp in am. Voiding adequately. Cont flomax. (4) SUE (acute kidney injury): Plan: Presenting Cr 1.49 at time of admission. Cr had improved this admission. Then again worsened overnight to 1.66. Restart fluids. BMP am. 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 Clean on exam today w/o signs of infection. Doubt contributing to #1. (8) Diabetes mellitus: Plan: a1c 8.6% earlier this month. cont basal-bolus insulin. (9) CAD (coronary artery disease): Plan: No symptoms of CAD at this time. Continue statin, BB, asa. (10) Hypertension: Plan: Cont metoprolol. Cont to hold HCTZ and SUJATHA. (11) Atrial fibrillation: Plan: heparin resumed post-op by urology again heme neg stool H/H stable hold off on coumadin until we know that no further procedures are needed (12) Ectatic thoracic aorta: Plan: 4.1cm nothing to do at this time continue beta vivian (13) Pacemaker: Plan: functioning appropriately (14) Hyponatremia: Plan: resolved (15) Hypokalemia: Plan: replaced and resolved (16) DVT prophylaxis: Plan: heparin drip placed on hold pre-op resumed post-op by urology (17) Chronic cough: Plan: present x years cont tessalon TID but increase dosing to 200mg dx previously with post-nasal drip syndrome losartan could potentially contribute consider holding losartan for several weeks to see if any improvement CT chest done 04/18/21 as outpatient - multiple pulmonary nodules - all smaller in size in comparison to previous CT. No infiltrates/pneumonia/fluid. f/u with pulmonary for all of these issues as outpatient Plan: left message for family 04/24 updated pt's son 04/25 updated pt's son 04/27 Admission and Anticipated Discharge Date Admission Date: April 22, 2021 Subjective tele overnight - again either a.fib or pacing patient had fevers/chills/fatigue all night no appetite drinking fluids however I discussed with him the events of last 24 hours and why he had developed the fevers he is voiding without difficulty denies any abd pain- just some mild bloating no dyspnea again main complaint is weakness and fatigue along with being cold from his fevers Review of Systems Review of Systems: CV - no chest pain, no orthopnea pulm - chronic cough, no change; no dyspnea - dysuria improved from yesterday; voiding on own adequately GI - no diarrhea Physical Exam Physical Exam: gen - looks modestly better than yesterday but still sickly skin - pallor mouth - MM dry again today neck - no JVD heart - irregular, s1 s2, no murmur lungs - CTA b/l; decreased BS bases with fine rales (atelectasis) abd - soft, NT, BS+, no HSM ext - no edema, pulses 2+ b/l psych - a/o x 3 skin - right foot plantar aspect 5th metatarsal head ulcer CLEAN, no drainage, no surrounding cellulitis Results & Data Results & Data ([facility]) Vital Signs (Past 12 Hours) Vital Signs Temp Pulse Pulse Pulse Resp BP BP 04/28/21 19:40 37.1 C 60 20 115/70 04/28/21 16:47 38.8 C H 04/28/21 15:33 38.6 C H 75 20 148/70 H 04/28/21 15:30 39.6 C H 04/28/21 14:58 72 04/28/21 11:40 37.4 C 61 16 148/74 H 04/28/21 10:09 63 Pulse Ox 04/28/21 19:40 95 04/28/21 16:47 04/28/21 15:33 90 04/28/21 15:30 04/28/21 14:58 04/28/21 11:40 92 04/28/21 10:09 Laboratory Results Laboratory Results - last 24 hr 04/27/21 04/28/21 04/28/21 21:40 06:39 06:39 WBC 12.48 H RBC 3.28 L Hgb 9.8 L Hct 30.1 L MCV 91.8 MCH 29.9 MCHC 32.6 RDW Std Deviation 50.0 H RDW Coeff of Suzy 14.9 H Plt Count 170 MPV 10.7 H Immature Gran % (Auto) 0.6 Neut % (Auto) 93.9 Lymph % (Auto) 1.5 [place] % (Auto) 3.8 Eos % (Auto) 0.1 Baso % (Auto) 0.1 Neut # (Auto) 11.73 H Lymph # (Auto) 0.19 L [place] # (Auto) 0.47 Eos # (Auto) 0.01 Baso # (Auto) 0.01 Immature Gran # (Auto) 0.07 H Dohle Bodies 1+ Sodium 136 Potassium 4.0 Chloride 103 Carbon Dioxide 23 Anion Gap 10.0 BUN 19 H Creatinine 1.66 H Est Cr Clr Drug Dosing 57.0 Est GFR ( Amer) 48.7 Est GFR (Non-Af Amer) 42.0 BUN/Creatinine Ratio 11.3 Glucose 189 H POC Glucose 224 H Calcium 8.2 L 04/28/21 04/28/21 04/28/21 07:47 11:01 16:43 WBC RBC Hgb Hct MCV MCH MCHC RDW Std Deviation RDW Coeff of Suzy Plt Count MPV Immature Gran % (Auto) Neut % (Auto) Lymph % (Auto) [place] % (Auto) Eos % (Auto) Baso % (Auto) Neut # (Auto) Lymph # (Auto) [place] # (Auto) Eos # (Auto) Baso # (Auto) Immature Gran # (Auto) Dohle Bodies Sodium Potassium Chloride Carbon Dioxide Anion Gap BUN Creatinine Est Cr Clr Drug Dosing Est GFR ( Amer) Est GFR (Non-Af Amer) BUN/Creatinine Ratio Glucose POC Glucose 195 H 165 H 152 H Calcium 04/28/21 20:33 WBC RBC Hgb Hct MCV MCH MCHC RDW Std Deviation RDW Coeff of Suzy Plt Count MPV Immature Gran % (Auto) Neut % (Auto) Lymph % (Auto) [place] % (Auto) Eos % (Auto) Baso % (Auto) Neut # (Auto) Lymph # (Auto) [place] # (Auto) Eos # (Auto) Baso # (Auto) Immature Gran # (Auto) Dohle Bodies Sodium Potassium Chloride Carbon Dioxide Anion Gap BUN Creatinine Est Cr Clr Drug Dosing Est GFR ( Amer) Est GFR (Non-Af Amer) BUN/Creatinine Ratio Glucose POC Glucose 146 H Calcium PG Care Time/CCT Total # of Minutes Spent Total Time Spent with Patient: Total time spent is greater than 50% in coordination of care (as documented) at patient's floor/unit and/or counseling patient: Coding Level of Care Code 00798 Subseq Hosp Care Lvl 3 Diagnoses Hydronephrosis concurrent with and due to calculi of kidney and ureter N13.2 Candidal UTI (urinary tract infection) B37.49 Anemia D64.9 Constipation K59.00 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
[2021-04-29] MEDS: SODIUM CHLORIDE 0.9% 1000ML 1,000 ML IV SCH (03:21)
[2021-04-29 04:25] LABS: Appearance Urine Cloudy (Clear); Bilirubin Urine Negative (Negative); Blood Urine 3+ (Negative); Color Urine Dark Yellow; Glucose Urine UA Negative (Negative); Ketones Urine Negative (Negative); Leukocyte Esterase Urine 1+ (Negative); Nitrite Urine Positive (Negative); Protein Urine 2+ (Negative); Specific Gravity Urine 1.032 (1.000-1.030); Urobilinogen Urine Negative (Negative); WBC Urine Automated >30 /hpf (0-5); pH Urine 5.5 (4.5-7.5)
[2021-04-29 05:31] LABS: Bacteria Urine Automated 1+ (Negative)
[2021-04-29 06:35] LABS: Hematocrit (blood only) 29.1 % (42-52); Hemoglobin 9.3 g/dL (14.0-18.0); Mean Corpuscular Hemoglobin 30.3 pg (25-34); Mean Corpuscular Volume 94.8 fL (80-100); Mean Platelet Volume 11.3 fL (7.4-10.4); Nucleated RBC # (auto) 0.02 K/uL (0-0); Nucleated RBC % (auto) 0.2 %; Platelet Count 147 K/uL (130-400); RDW Coefficient of Variation 15.2 % (11.5-14.5); Red Blood Count 3.07 M/uL (4.7-6.1); White Blood Count 10.36 K/uL (4.8-10.8)
[2021-04-29 07:11] LABS: Calcium 8.2 mg/dl (8.5-10.1); Creatinine Clr Calc Pharmacy 64.1 ml/min; Est GFR (African American) 56.4 ml/min; Est GFR (Non-African American) 48.7 ml/min; Potassium 4.3 mmol/L (3.5-5.1)
[2021-04-29] MEDS: CEFEPIME 2,000 MG in SYRINGE 0 ML IV SCH (09:01)
[2021-04-29] MEDS: POLYETHYLENE (MIRALAX) 17 GM PACK PO SCH ×2 (09:05→20:41)
[2021-04-29] MEDS: ASPIRIN 81 MG ECTAB PO SCH (09:06)
[2021-04-29] MEDS: PANTOprazole 40 MG TAB PO SCH (09:06)
[2021-04-29] MEDS: BENZONATATE 100 MG CAPSULE PO SCH ×3 (09:06→20:40)
[2021-04-29] MEDS: METOPROLOL SUCC 25MG EXT REL TAB PO SCH (09:06)
[2021-04-29] MEDS: TAMSULOSIN HCL 0.4 MG CAP PO SCH (09:06)
[2021-04-29] MEDS: CASPOFUNGIN 50 MG in SODIUM CHLORIDE 0.9% 250 ML IV SCH (09:06)
[2021-04-29] MEDS: SENNA 8.6 MG TAB PO SCH (09:06)
[2021-04-29] MEDS: INSULIN GLARGINE SOLOSTAR 100 UNITS/ML 3 ML PEN SC SCH ×2 (09:07→20:38)
[2021-04-29] MEDS: INSULIN ASPART 100 UNITS/ML 3 ML PEN SC SCH ×4 (09:08→20:37)
[2021-04-29 09:32] LABS: Partial Thromboplastin Ratio 1.1; Partial Thromboplastin Time 27.9 Seconds (21.0-31.0)
[2021-04-29] MEDS: HEPARIN SODIUM/DEXTROSE 25,000 UNITS/500 ML BAG IV SCH ×8 (10:18→22:20)
--- NOTE | 2021-04-29 10:42 | Urology Progress Note ---
Date of Service April 29, 2021 Assessment & Plan (1) Left ureteral calculus: (2) Candidal UTI (urinary tract infection): Plan: 65 year-old male patient, s/p left ureteral stent placement on 04/10/21, admitted with weakness, UTI, left-sided hydronephrosis. - POD#1 cystoscopy, left ureteroscopy, laser lithotripsy/stone treatment, and left stent exchange with Dr. Field. - Patient unfortunately became febrile, hypoxic post procedure. T-max 39.6 C. - Lab work reviewed - labs improving - Urine culture 04/21 positive for Grace albicans/dubliniensis. - Initial blood cultures no growth, repeat blood cultures pending. -- IV Caspofungin and Cefepime has been initiated by primary team. - Continue supportive care, IV antifungal, antibiotics, and close monitoring. - Will follow closely along with primary team. Admission and Anticipated Discharge Date Admission Date: April 22, 2021 Subjective fevers have subsided. no appetite, feels weak and overall "feels terrible" drinking fluids however No CP or SOB he is voiding without difficulty denies any abd pain- just some mild bloating Review of Systems Review of Systems: very weak, difficult for him to have a conversation today - continues to fall asleep Physical Exam Physical Exam: very sleepy NAD nonlabored regular rate soft, obese + edema LE Results & Data ([facility]) Vital Signs (Past 12 Hours) Vital Signs Temp Pulse Pulse Resp BP Pulse Ox 04/29/21 08:01 37 C 71 18 124/71 91 04/29/21 07:35 74 04/29/21 04:00 37.5 C 81 20 143/78 H 04/28/21 23:11 65 04/28/21 23:05 37.1 C 79 20 159/76 H 92 PG Care Time/CCT Total # of Minutes Spent Total Time Spent with Patient: Total time spent is greater than 50% in coordination of care (as documented) at patient's floor/unit and/or counseling patient: Coding Level of Care Code 55451 Subseq Hosp Care Lvl 2 History Expanded Problem Focused Exam Expanded Problem Focused Diagnoses Left ureteral calculus N20.1 Candidal UTI (urinary tract infection) B37.49 Time Spent (min) 20
[2021-04-29 16:17] LABS: Partial Thromboplastin Ratio 1.7
[2021-04-29 16:32] LABS: Partial Thromboplastin Time 45.6 Seconds (21.0-31.0)
--- NOTE | 2021-04-29 20:16 | Hospitalist Progress Note ---
Date of Service April 29, 2021 Assessment & Plan (1) Sepsis: Plan: 2nd to UTI in the setting of recent stent exchange, laser litho of left-sided kidney stone, etc. Had been on diflucan for fungal UTI up until his surgery this week. Post-operatively had severe rigors, then late that night developed fever. Had fevers for about 30 hours, mild SUE, and felt very poorly. All of the above is improved finally. Blood cx's from 04/27 remain negative. Repeat urine cx is negative. Continue current IV abx -- cefepime for bacterial pathogens & caspofungin for fungal organisms. If blood and urine cx's remain negative can likely d/c both and narrow back to diflucan. (2) Candidal UTI (urinary tract infection): Plan: c albicans on prior 2 urine cultures. complicated UTI due to ureteral stent and kidney stone previously had received 6 days of IV/PO diflucan now on caspofungin - day #2 of such repeat blood and urine cx's remain negative to date fevers resolved (3) Hydronephrosis concurrent with and due to calculi of kidney and ureter: Plan: s/p L ureteral stent deployment by Dr Garcia on 04/10/21 for 8mm stone on left. POD #2 - s/p laser litho and stent exchange by Dr Field. Appreciate urology assistance. Post-op course complicated by #1 above. Cont abx, supportive care, etc. Cont flomax. Follow all cx's. (4) SUE (acute kidney injury): Plan: Presenting Cr 1.49 at time of admission. Cr had improved this admission. Then again worsened to 1.6; today back down to 1.4 He is turning the corner in all respects. repeat BMP am. (5) Anemia: Plan: Hb 13.5 on 04/09/21 now in the 9's however, h/h stable most of this week. stool checked and heme negative. 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 Clean on exam today w/o signs of infection. Doubt contributing to #1. (8) Diabetes mellitus: Plan: a1c 8.6% earlier this month. cont basal-bolus insulin. controlled (9) CAD (coronary artery disease): Plan: No symptoms of CAD at this time. Continue statin, BB, asa. (10) Hypertension: Plan: Cont metoprolol. Cont to hold HCTZ and SUJATHA. (11) Atrial fibrillation: Plan: heparin drip resumed again heme neg stool H/H stable hold off on coumadin until we know that no further procedures are needed (12) Ectatic thoracic aorta: Plan: 4.1cm nothing to do at this time continue beta vivian (13) Pacemaker: Plan: functioning appropriately (14) Hyponatremia: Plan: resolved (15) Hypokalemia: Plan: replaced and resolved (16) DVT prophylaxis: Plan: heparin drip resumed (17) Chronic cough: Plan: present x years cont tessalon 200mg TID dx previously with post-nasal drip syndrome losartan could potentially contribute consider holding losartan for several weeks to see if any improvement he has scant end-exp wheezes when he coughs - may have bronchial issue and would benefit from PFTs and pulmonary f/u post-d/c in meantime - to help w/ this chronic cough - start symbicort [address] chest done 04/18/21 as outpatient - multiple pulmonary nodules - all smaller in size in comparison to previous CT. No infiltrates/pneumonia/fluid. f/u with pulmonary for all of these issues as outpatient Plan: left message for family 04/24 updated pt's son 04/25 updated pt's son 04/27 updated pt's son 04/29 Admission and Anticipated Discharge Date Admission Date: April 22, 2021 Subjective patient feels modestly better today drinking fluids ate a limited number of solids today still not feeling his normal, but not worse than yesterday no further fevers/chills biggest complaint is weakness -- but able to ambulate to bathroom having issues with urinary incontinence and frequency no dysuria denies abd pain tele overnight - a.fib or pacing Review of Systems Review of Systems: gen - no fevers or chills CV - no chest pain pulm - chronic cough unchanged; no sputum; no dyspnea GI - no N/V/D Physical Exam Physical Exam: gen - looks better today; coughing; no distress skin - "color" looks better; not as ashen today mouth - MM more moist today neck - no JVD heart - irregular, s1 s2, no murmur lungs - CTA b/l with scant end-exp wheeze when he coughs abd - soft, NT, BS+, no HSM ext - no edema, pulses 2+ b/l psych - a/o x 3 Results & Data Results & Data ([facility]) Vital Signs (Past 12 Hours) Vital Signs Temp Pulse Pulse Resp BP BP Pulse Ox 04/29/21 19:39 36.8 C 68 20 135/73 96 04/29/21 16:00 36.6 C 63 20 126/69 98 04/29/21 14:56 60 04/29/21 11:21 37.0 C 69 20 135/72 92 Laboratory Results Laboratory Results - last 24 hr 04/28/21 04/28/21 04/29/21 20:33 21:42 06:06 WBC 10.36 RBC 3.07 L Hgb 9.3 L Hct 29.1 L MCV 94.8 MCH 30.3 MCHC 32.0 RDW Std Deviation 53.0 H RDW Coeff of Suzy 15.2 H Plt Count 147 MPV 11.3 H Absolute Nucleated RBC 0.02 H Nucleated RBC % (auto) 0.2 APTT PTT Ratio Sodium Potassium Chloride Carbon Dioxide Anion Gap BUN Creatinine Est Cr Clr Drug Dosing Est GFR ( Amer) Est GFR (Non-Af Amer) BUN/Creatinine Ratio Glucose POC Glucose 146 H Calcium Urine Color Dark Yellow Urine Appearance Cloudy A Urine pH 5.5 Ur Specific [place] 1.032 H Urine Protein 2+ H Urine Glucose (UA) Negative Urine Ketones Negative Urine Blood 3+ H Urine Nitrite Positive A Urine Bilirubin Negative Urine Urobilinogen Negative Ur Leukocyte Esterase 1+ H Urine WBC (Auto) >30 H Urine RBC (Auto) 10-30 H U Hyaline Cast (Auto) 1-5 U Epithel Cells (Auto) 10-20 H Urine Bacteria (Auto) 1+ H Urine Yeast Not Reportable 04/29/21 04/29/21 04/29/21 06:06 07:43 09:12 WBC RBC Hgb Hct MCV MCH MCHC RDW Std Deviation RDW Coeff of Suzy Plt Count MPV Absolute Nucleated RBC Nucleated RBC % (auto) APTT 27.9 PTT Ratio 1.1 Sodium 136 Potassium 4.3 Chloride 106 Carbon Dioxide 24 Anion Gap 6.0 BUN 23 H Creatinine 1.47 H Est Cr Clr Drug Dosing 64.1 Est GFR ( Amer) 56.4 Est GFR (Non-Af Amer) 48.7 BUN/Creatinine Ratio 16.0 Glucose 151 H POC Glucose 166 H Calcium 8.2 L Urine Color Urine Appearance Urine pH Ur Specific [place] Urine Protein Urine Glucose (UA) Urine Ketones Urine Blood Urine Nitrite Urine Bilirubin Urine Urobilinogen Ur Leukocyte Esterase Urine WBC (Auto) Urine RBC (Auto) U Hyaline Cast (Auto) U Epithel Cells (Auto) Urine Bacteria (Auto) Urine Yeast 04/29/21 04/29/21 04/29/21 11:29 15:47 16:49 WBC RBC Hgb Hct MCV MCH MCHC RDW Std Deviation RDW Coeff of Suzy Plt Count MPV Absolute Nucleated RBC Nucleated RBC % (auto) APTT 45.6 H* PTT Ratio 1.7 Sodium Potassium Chloride Carbon Dioxide Anion Gap BUN Creatinine Est Cr Clr Drug Dosing Est GFR ( Amer) Est GFR (Non-Af Amer) BUN/Creatinine Ratio Glucose POC Glucose 175 H 144 H Calcium Urine Color Urine Appearance Urine pH Ur Specific [place] Urine Protein Urine Glucose (UA) Urine Ketones Urine Blood Urine Nitrite Urine Bilirubin Urine Urobilinogen Ur Leukocyte Esterase Urine WBC (Auto) Urine RBC (Auto) U Hyaline Cast (Auto) U Epithel Cells (Auto) Urine Bacteria (Auto) Urine Yeast 04/29/21 20:10 WBC RBC Hgb Hct MCV MCH MCHC RDW Std Deviation RDW Coeff of Suzy Plt Count MPV Absolute Nucleated RBC Nucleated RBC % (auto) APTT PTT Ratio Sodium Potassium Chloride Carbon Dioxide Anion Gap BUN Creatinine Est Cr Clr Drug Dosing Est GFR ( Amer) Est GFR (Non-Af Amer) BUN/Creatinine Ratio Glucose POC Glucose 162 H Calcium Urine Color Urine Appearance Urine pH Ur Specific [place] Urine Protein Urine Glucose (UA) Urine Ketones Urine Blood Urine Nitrite Urine Bilirubin Urine Urobilinogen Ur Leukocyte Esterase Urine WBC (Auto) Urine RBC (Auto) U Hyaline Cast (Auto) U Epithel Cells (Auto) Urine Bacteria (Auto) Urine Yeast PG Care Time/CCT Total # of Minutes Spent Total Time Spent with Patient: Total time spent is greater than 50% in coordination of care (as documented) at patient's floor/unit and/or counseling patient: Coding Level of Care Code 45461 Subseq Hosp Care Lvl 3 Diagnoses Sepsis A41.9 Candidal UTI (urinary tract infection) B37.49 Hydronephrosis concurrent with and due to calculi of kidney and ureter N13.2 SUE (acute kidney injury) N17.9 Anemia D64.9 Constipation K59.00 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
[2021-04-29] MEDS: ATORVASTATIN 40 MG TAB PO SCH (20:39)
[2021-04-29] MEDS ORDERED: Nursing to Pharmacy Communication SCH (21:45)
[2021-04-29 23:26] LABS: Partial Thromboplastin Ratio 1.8
[2021-04-29 23:31] LABS: Partial Thromboplastin Time 48.2 Seconds (21.0-31.0)
[2021-04-30 08:07] LABS: Hematocrit (blood only) 27.4 % (42-52); Hemoglobin 8.5 g/dL (14.0-18.0); Mean Corpuscular Hemoglobin 29.5 pg (25-34); Mean Corpuscular Volume 95.1 fL (80-100); Mean Platelet Volume 11.7 fL (7.4-10.4); Platelet Count 123 K/uL (130-400); RDW Coefficient of Variation 15.2 % (11.5-14.5); RDW Standard Deviation 52.9 fL (36.4-46.3); Red Blood Count 2.88 M/uL (4.7-6.1); White Blood Count 7.74 K/uL (4.8-10.8)
[2021-04-30 08:29] LABS: Partial Thromboplastin Ratio 2.5
[2021-04-30 08:31] LABS: BUN Creatinine Ratio 15.8 (10-20); Creatinine Clr Calc Pharmacy 72.8 ml/min; Est GFR (African American) 65.4 ml/min; Est GFR (Non-African American) 56.5 ml/min; Potassium 3.8 mmol/L (3.5-5.1)
[2021-04-30 08:35] LABS: Partial Thromboplastin Time 64.7 Seconds (21.0-31.0)
[2021-04-30] MEDS: BENZONATATE 100 MG CAPSULE PO SCH ×3 (08:50→21:07)
[2021-04-30] MEDS: ASPIRIN 81 MG ECTAB PO SCH (08:50)
[2021-04-30] MEDS: FLUTICASONE/VILANTEROL 200/25MCG 14 PUFFS/INHALER INH SCH (08:50)
[2021-04-30] MEDS: METOPROLOL SUCC 25MG EXT REL TAB PO SCH (08:50)
[2021-04-30] MEDS: PANTOprazole 40 MG TAB PO SCH (08:50)
[2021-04-30] MEDS: HEPARIN SODIUM/DEXTROSE 25,000 UNITS/500 ML BAG IV SCH ×2 (08:50→12:05)
[2021-04-30] MEDS: TAMSULOSIN HCL 0.4 MG CAP PO SCH (08:50)
[2021-04-30] MEDS: INSULIN GLARGINE SOLOSTAR 100 UNITS/ML 3 ML PEN SC SCH ×2 (08:51→21:10)
[2021-04-30] MEDS: INSULIN ASPART 100 UNITS/ML 3 ML PEN SC SCH ×4 (08:52→21:09)
[2021-04-30] MEDS: POLYETHYLENE (MIRALAX) 17 GM PACK PO SCH ×2 (08:53→21:17)
[2021-04-30] MEDS: SENNA 8.6 MG TAB PO SCH (08:53)
[2021-04-30] MEDS: CASPOFUNGIN 50 MG in SODIUM CHLORIDE 0.9% 250 ML IV SCH (10:17)
[2021-04-30 16:23] LABS: Hematocrit (blood only) 28.4 % (42-52); Mean Corpuscular Hemoglobin 29.3 pg (25-34); Mean Corpuscular Hgb Conc 31.7 g/dL (32-36); Mean Corpuscular Volume 92.5 fL (80-100); Mean Platelet Volume 11.4 fL (7.4-10.4); Nucleated RBC # (auto) 0.02 K/uL (0-0); Nucleated RBC % (auto) 0.2 %; Platelet Count 138 K/uL (130-400); RDW Coefficient of Variation 15.3 % (11.5-14.5); RDW Standard Deviation 52.1 fL (36.4-46.3); Red Blood Count 3.07 M/uL (4.7-6.1); White Blood Count 7.71 K/uL (4.8-10.8)
[2021-04-30] MEDS: ATORVASTATIN 40 MG TAB PO SCH (21:07)
--- NOTE | 2021-04-30 23:52 | Hospitalist Progress Note ---
Date of Service April 30, 2021 Assessment & Plan (1) Sepsis: Plan: 2nd to UTI in the setting of recent stent exchange, laser litho of left-sided kidney stone, etc. Had been on diflucan for fungal UTI up until his surgery this week. Post-operatively had severe rigors, then late that night developed fever. Had fevers for about 30 hours, mild SUE, and felt very poorly. Blood and urine cultures from 04/27 remain negative. Since 04/27 blood & urine cx's are negative can d/c caspofungin; d/c cefepime. Place back on PO diflucan 200mg daily for recent fungal UTI. Follow blood cx's to finalization. (2) Candidal UTI (urinary tract infection): Plan: c albicans on prior 2 urine cultures. complicated UTI due to ureteral stent and kidney stone previously had received 6 days of IV/PO diflucan now on caspofungin - day #3 of such repeat blood and urine cx's remain negative to date from 04/27/21 fevers resolved d/c caspofungin convert back to PO diflucan would advise keeping on diflucan until the L ureteral stent is removed - date uncertain (3) Hydronephrosis concurrent with and due to calculi of kidney and ureter: Plan: s/p L ureteral stent deployment by Dr Garcia on 04/10/21 for 8mm stone on left. POD #3 - s/p laser litho and stent exchange by Dr Field. Appreciate urology assistance. Post-op course complicated by #1 above. Cont antifungal therapy Cont flomax. Follow all cx's to completion. (4) SUE (acute kidney injury): Plan: Presenting Cr 1.49 at time of admission. Cr had improved, then worsened again to 1.6 in the midst of his laser litho/stent exchange. Now 1.3. Fluids stopped. BMP am. (5) Anemia: Plan: Hb 13.5 on 04/09/21 Pt's Hemoglobin has been fluctuating between 8 and 10 over the last week this am his Hemoglobin dropped 1 gram in midst of being on heparin IV. I stopped the heparin and repeated his CBC this afternoon. Hb back in the 9's. Lab error this am?? previous fecal occult test was NEGATIVE. will repeat a fecal occult today. keep heparin off until the new fecal occult results. recent Fe studies c/w Fe def. b12/folate wnl. consider PO iron. 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 Clean on exam today w/o signs of infection. Doubt contributing to #1. (8) Diabetes mellitus: Plan: a1c 8.6% earlier this month. cont basal-bolus insulin. controlled (9) CAD (coronary artery disease): Plan: No symptoms of CAD at this time. Continue statin, BB, asa. (10) Hypertension: Plan: Cont metoprolol. Cont to hold HCTZ and SUJATHA. (11) Atrial fibrillation: Plan: heparin drip stopped; see "anemia" above H/H with significant variation this stay - again see anemia above hold off on coumadin until we know that no further procedures are needed and that H/H are stable cont BB (metoprolol) (12) Ectatic thoracic aorta: Plan: 4.1cm nothing to do at this time continue beta vivian (13) Pacemaker: Plan: functioning appropriately (14) Hyponatremia: Plan: resolved (15) Hypokalemia: Plan: replaced and resolved (16) DVT prophylaxis: Plan: holding heparin drip - see above (17) Chronic cough: Plan: present x years cont tessalon 200mg TID dx previously with post-nasal drip syndrome losartan could potentially contribute consider holding losartan for several weeks to see if any improvement he has scant end-exp wheezes when he coughs - may have bronchial issue and would benefit from PFTs and pulmonary f/u post-d/c in meantime - to help w/ this chronic cough - started symbicort [address] chest done 04/18/21 as outpatient - multiple pulmonary nodules - all smaller in size in comparison to previous CT. No infiltrates/pneumonia/fluid. f/u with pulmonary for all of these issues as outpatient - recommend PFTs, etc Plan: left message for family 04/24 updated pt's son 04/25 updated pt's son 04/27 updated pt's son 04/29 Admission and Anticipated Discharge Date Admission Date: April 22, 2021 Subjective tele overnight with a.fib or pacing today during the visit he was sitting in chair by the window he feels "a little better" but still quite weak appetite modestly improved today fevers have resolved chills have resolved cough - maybe slightly better no dyspnea no abd pain main complaint is the weakness Review of Systems Review of Systems: gen - fevers/chills resolved; anorexia improving; weakness remains CV - no chest pain pulm - no sputum despite chronic cough GI - no N/V; staff report copious stools overnight and this am Physical Exam Physical Exam: gen - looks better today, sitting in chair, NAD skin - no rash mouth - MMM neck - no JVD heart - irregular, s1 s2, no murmur lungs - CTA b/l today; wheezes resolved abd - soft, NT, BS+, no HSM ext - no edema, pulses 2+ b/l psych - a/o x 3, affect restricted Results & Data Results & Data ([facility]) Vital Signs (Past 12 Hours) Vital Signs Temp Pulse Pulse Resp BP BP Pulse Ox 04/30/21 22:43 36.5 C 73 20 143/73 H 93 04/30/21 19:58 36.5 C 61 18 133/64 93 04/30/21 15:49 37 C 80 16 112/66 92 04/30/21 15:02 61 Laboratory Results Laboratory Results - last 24 hr 04/30/21 04/30/21 04/30/21 07:31 07:37 07:37 WBC 7.74 RBC 2.88 L Hgb 8.5 L Hct 27.4 L MCV 95.1 MCH 29.5 MCHC 31.0 L RDW Std Deviation 52.9 H RDW Coeff of Suzy 15.2 H Plt Count 123 L MPV 11.7 H Absolute Nucleated RBC Nucleated RBC % (auto) APTT PTT Ratio Sodium 138 Potassium 3.8 Chloride 106 Carbon Dioxide 26 Anion Gap 6.0 BUN 21 H Creatinine 1.30 Est Cr Clr Drug Dosing 72.8 Est GFR ( Amer) 65.4 Est GFR (Non-Af Amer) 56.5 BUN/Creatinine Ratio 15.8 Glucose 126 H POC Glucose 137 H Calcium 8.0 L Stool Occult Bld Scrn Stl C. diff Tox B Gene 04/30/21 04/30/21 04/30/21 07:37 11:35 16:15 WBC 7.71 RBC 3.07 L Hgb 9.0 L Hct 28.4 L MCV 92.5 MCH 29.3 MCHC 31.7 L RDW Std Deviation 52.1 H RDW Coeff of Suzy 15.3 H Plt Count 138 MPV 11.4 H Absolute Nucleated RBC 0.02 H Nucleated RBC % (auto) 0.2 APTT 64.7 H* PTT Ratio 2.5 Sodium Potassium Chloride Carbon Dioxide Anion Gap BUN Creatinine Est Cr Clr Drug Dosing Est GFR ( Amer) Est GFR (Non-Af Amer) BUN/Creatinine Ratio Glucose POC Glucose 136 H Calcium Stool Occult Bld Scrn Stl C. diff Tox B Gene 04/30/21 04/30/21 04/30/21 16:31 20:17 21:00 WBC RBC Hgb Hct MCV MCH MCHC RDW Std Deviation RDW Coeff of Suzy Plt Count MPV Absolute Nucleated RBC Nucleated RBC % (auto) APTT PTT Ratio Sodium Potassium Chloride Carbon Dioxide Anion Gap BUN Creatinine Est Cr Clr Drug Dosing Est GFR ( Amer) Est GFR (Non-Af Amer) BUN/Creatinine Ratio Glucose POC Glucose 132 H 155 H Calcium Stool Occult Bld Scrn Negative Stl C. diff Tox B Gene 04/30/21 21:00 WBC RBC Hgb Hct MCV MCH MCHC RDW Std Deviation RDW Coeff of Suzy Plt Count MPV Absolute Nucleated RBC Nucleated RBC % (auto) APTT PTT Ratio Sodium Potassium Chloride Carbon Dioxide Anion Gap BUN Creatinine Est Cr Clr Drug Dosing Est GFR ( Amer) Est GFR (Non-Af Amer) BUN/Creatinine Ratio Glucose POC Glucose Calcium Stool Occult Bld Scrn Stl C. 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
[2021-05-01] MEDS: CASPOFUNGIN 50 MG in SODIUM CHLORIDE 0.9% 250 ML IV SCH (08:20)
[2021-05-01] MEDS: FLUTICASONE/VILANTEROL 200/25MCG 14 PUFFS/INHALER INH SCH (08:21)
[2021-05-01] MEDS: SENNA 8.6 MG TAB PO SCH (08:21)
[2021-05-01] MEDS: BENZONATATE 100 MG CAPSULE PO SCH ×3 (08:21→20:15)
[2021-05-01] MEDS: PANTOprazole 40 MG TAB PO SCH (08:21)
[2021-05-01] MEDS: METOPROLOL SUCC 25MG EXT REL TAB PO SCH (08:21)
[2021-05-01] MEDS: ASPIRIN 81 MG ECTAB PO SCH (08:21)
[2021-05-01] MEDS: TAMSULOSIN HCL 0.4 MG CAP PO SCH (08:21)
[2021-05-01] MEDS: POLYETHYLENE (MIRALAX) 17 GM PACK PO SCH ×2 (08:25→20:13)
[2021-05-01] MEDS: INSULIN ASPART 100 UNITS/ML 3 ML PEN SC SCH ×4 (08:26→20:32)
[2021-05-01] MEDS: INSULIN GLARGINE SOLOSTAR 100 UNITS/ML 3 ML PEN SC SCH ×2 (08:26→20:30)
--- NOTE | 2021-05-01 09:38 | Urology Progress Note ---
Date of Service May 01, 2021 Assessment & Plan (1) Left ureteral calculus: (2) Candidal UTI (urinary tract infection): Plan: 65 year-old male patient, s/p left ureteral stent placement on 04/10/21, admitted with weakness, UTI, left-sided hydronephrosis. - POD# 4 s/p cystoscopy, left ureteroscopy, laser lithotripsy/stone treatment, and left stent exchange with Dr. Field. - Postop course complicated with fevers and lethargy, presumed sepsis. - Remains afebrile, VSS. - Labs reviewed, Wbc stable, Hgb 8.4, Creatinine 1.09 - Urine culture 04/21 positive for Grace albicans/dubliniensis, repeat UC&S 04/28 with no growth. - Initial blood cultures no growth, repeat BCx prelim with yeast - Tolerating ureteral stent with minimal bother. - Voiding without difficulty, output appears adequate - Continue supportive care, antibiotic, and antifungal therapy, follow cultures - Will arrange outpatient follow-up with urology service for continued care following discharge. - Thank you for allowing us to participate in the acute care of Mr. Fitzgerald. - Please reconsult us with additional questions, concerns or changes in patient status. Admission and Anticipated Discharge Date Admission Date: April 22, 2021 Subjective POD#4 cystoscopy, left ureteroscopy, laser lithotripsy/stone treatment, and left stent exchange with Dr. Field. Pt examined at bedside this afternoon. Awake, sitting in bedside chair on arrival. No fevers or chills. Reports he feels poorly, does not express specific complaints. Denies abdominal or flank pain, just some mild bloating. Denies nausea or vomiting. Voiding without difficulty. No hematuria or dysuria. Review of Systems Constitutional: as per Subjective / HPI Gastrointestinal: as per Subjective / HPI Genitourinary: + as per Subjective / HPI Physical Exam Constitutional: well developed and well nourished; no acute distress and not ill appearing Respiratory: normal respiratory effort and able to speak in complete sentences; no labored breathing and no audible wheezes Gastrointestinal (Abdomen): Inspection/Auscultation: abdomen normal to inspection; abdomen not distended Musculoskeletal: Head/Neck/Chest: normocephalic Skin: No visible rashes or lesions to exposed skin areas Neurologic: moves all extremities and awake Psychiatric: Orientation: alert, oriented x 3 and cooperative Results & Data ([facility]) Vital Signs (Past 12 Hours) Vital Signs Temp Pulse Pulse Resp BP BP Pulse Ox 05/01/21 07:57 36.5 C 68 20 115/56 L 92 05/01/21 03:37 36.7 C 65 18 129/69 91 05/01/21 00:14 60 04/30/21 22:43 36.5 C 73 20 143/73 H 93 PG Care Time/CCT Total # of Minutes Spent Total Time Spent with Patient: Total time spent is greater than 50% in coordination of care (as documented) at patient's floor/unit and/or counseling patient: Coding Level of Care Code 45522 Subseq Hosp Care Lvl 2 Diagnoses Left ureteral calculus N20.1 Candidal UTI (urinary tract infection) B37.49
[2021-05-01 10:43] LABS: Hematocrit (blood only) 26.3 % (42-52); Hemoglobin 8.4 g/dL (14.0-18.0); Mean Corpuscular Hemoglobin 29.6 pg (25-34); Mean Corpuscular Hgb Conc 31.9 g/dL (32-36); Mean Corpuscular Volume 92.6 fL (80-100); Mean Platelet Volume 11.3 fL (7.4-10.4); Platelet Count 121 K/uL (130-400); RDW Coefficient of Variation 15.1 % (11.5-14.5); Red Blood Count 2.84 M/uL (4.7-6.1); White Blood Count 4.83 K/uL (4.8-10.8)
[2021-05-01 11:17] LABS: BUN Creatinine Ratio 15.5 (10-20); Calcium 8.1 mg/dl (8.5-10.1); Creatinine Clr Calc Pharmacy 86.8 ml/min; Est GFR (Non-African American) 69.9 ml/min; Potassium 3.6 mmol/L (3.5-5.1)
--- NOTE | 2021-05-01 16:56 | Hospitalist Progress Note ---
Date of Service May 01, 2021 Assessment & Plan (1) Sepsis: Plan: 2/2 urinary tract infection with recent stent exchange and laser lithotripsy left left-sided stone - Complicated by fungemia 05/01 pending speciation, anticipate rubia based on prior hx and cultures Patient on Diflucan for fungal UTI up until stent exchange Postoperatively with severe rigors which lasted about 30 hours Blood culture from 04/27+ for yeast pending speciation, suspect Rubia based on prior UA Patient converted From Diflucan to caspofungin due to fungemia. Anticipate 14- day course from first set of negative surveillance cultures. - Continue caspofungin 50 mg IV daily maintenance dose Anticipate need for PICC at discharge for continued IV therapy, .Placement pending negative blood cultures x48 hours at least. Surveillance cultures ordered 05/01 (2) Candidal UTI (urinary tract infection): Plan: -c albicans on prior 2 urine cultures. -complicated UTI due to ureteral stent and kidney stone -previously had received 6 days of IV/PO diflucan - back on caspo 2/2 fungemia (3) Hydronephrosis concurrent with and due to calculi of kidney and ureter: Plan: -s/p L ureteral stent deployment by Dr Garcia on 04/10/21 for 8mm stone on left. - s/p laser litho and stent exchange by Dr Field. -Appreciate urology assistance. -Cont antifungal therapy -Cont flomax. -Follow all cx's to completion. (4) SUE (acute kidney injury): Plan: -Presenting Cr 1.49 at time of admission. -Cr had improved, then worsened again to 1.6 in the midst of his laser litho/stent exchange. - normalized 927 (5) Anemia: Plan: -Hb 13.5 on 04/09/21 -Pt's Hemoglobin has been fluctuating between 8 and 10 over the last week - Hemoglobin dropped 1 gram in midst of being on heparin IV. - heparin gtt stopped. -previous fecal occult test was NEGATIVE. - FOB negative - Discussed risks/benefits Of A. fib prophylactic anticoagulation in the setting of his recent illness, procedures, and bleeding. Following risk benefits discussion will defer for 48 after stend removal, and at least until no additional procedures anticipated and then resume. Discussed that he would likely need around 5 days of bridge therapy with warfarin. 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 Clean on exam today w/o signs of infection. Doubt contributing to #1. (8) Diabetes mellitus: Plan: a1c 8.6% earlier this month. cont basal-bolus insulin. controlled (9) CAD (coronary artery disease): Plan: No symptoms of CAD at this time. Continue statin, BB, asa. (10) Hypertension: Plan: Cont metoprolol. Cont to hold HCTZ and SUJATHA. (11) Atrial fibrillation: Plan: -heparin drip stopped; see "anemia" above -hold off on coumadin until we know that no further procedures are needed and that H/H are stable -cont BB (metoprolol) (12) Ectatic thoracic aorta: Plan: -4.1cm -nothing to do at this time -continue beta vivian (13) Pacemaker: Plan: -functioning appropriately (14) Hyponatremia: Plan: -resolved (15) Hypokalemia: Plan: -replaced and resolved (16) DVT prophylaxis: Plan: -holding heparin drip - see above. SCDs (17) Chronic cough: Plan: -present x years -cont tessalon 200mg TID -dx previously with post-nasal drip syndrome -losartan could potentially contribute -consider holding losartan for several weeks to see if any improvement -he has scant end-exp wheezes when he coughs - may have bronchial issue and would benefit from PFTs and pulmonary f/u post-d/c in meantime - to help w/ this chronic cough - started symbicort 2 puffs BID -CT chest done 04/18/21 as outpatient - multiple pulmonary nodules - all smaller in size in comparison to previous CT. No infiltrates/pneumonia/fluid. -f/u with pulmonary for all of these issues as outpatient - recommend PFTs, etc (18) Fungemia: Plan: - See sepsis/jennifer above Plan: left message for family 04/24 updated pt's son 04/25 updated pt's son 04/27 updated pt's son 04/29 updated pt's son 05/01 Admission and Anticipated Discharge Date Admission Date: April 22, 2021 Subjective Patient is seen at the bedside. He reports he feels "okay, just really tired ". He denies fever, chills, sweats overnight. He denies urinary pain, flank pain. He reports he feels globally weak without focal weakness today. He feels his bowel movements have improved, and reports that the severe constipation he had earlier in the week seems to be improved/improving. He is frustrated by his prolonged hospital stay, and reports he prefers not to be on Lovenox belly shots when converting back to his warfarin. Discussed that the way warfarin works would medically recommend bridge therapy, although could also consider alternative anticoagulants instead. Patient reports he is open to this but would like it to be discussed with his outpatient providers first 1 closer to discharge. No other questions or concerns at time of assessment. Review of Systems Review of Systems: 10 point review of systems negative except as noted in HPI Physical Exam Physical Exam: General: A&Ox3. NAD. Cooperative.Sitting up in chair. HEENT: Atraumatic, normocephalic.Visual acuity and hearing grossly intact. Pulm: CTAB A&P. -wheezes, -rales, -rhonchi. Symmetrical chest rise. No increase work of breathing. No respiratory distress. Cardiac: Irregularly irregular, -mrg. Radial pulses intact and symmetrical. Abdominal: Nontender, nondistended, soft. BS present. Extremities: 1+ pitting edema bilaterally, nontender. No erythema/warmth. Results & Data Results & Data ([facility]) Vital Signs (Past 12 Hours) Vital Signs Temp Pulse Pulse Resp BP Pulse Ox 05/01/21 15:00 36.4 C L 59 L 20 135/71 97 05/01/21 14:57 62 05/01/21 11:00 36.6 C 61 20 116/66 95 05/01/21 07:57 36.5 C 68 20 115/56 L 92 PG Care Time/CCT Total # of Minutes Spent Total Time Spent with Patient: Total time spent is greater than 50% in coordination of care (as documented) at patient's floor/unit and/or counseling patient: Coding Level of Care Code 63308 Subseq Hosp Care Lvl 3 Diagnoses Sepsis A41.9 Candidal UTI (urinary tract infection) B37.49 Hydronephrosis concurrent with and due to calculi of kidney and ureter N13.2 SUE (acute kidney injury) N17.9 Anemia D64.9 Constipation K59.00 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
[2021-05-01] MEDS: ATORVASTATIN 40 MG TAB PO SCH (20:14)
[2021-05-02] MEDS: BENZONATATE 100 MG CAPSULE PO SCH ×3 (08:21→20:34)
[2021-05-02] MEDS: SENNA 8.6 MG TAB PO SCH (08:22)
[2021-05-02] MEDS: PANTOprazole 40 MG TAB PO SCH (08:23)
[2021-05-02] MEDS: TAMSULOSIN HCL 0.4 MG CAP PO SCH (08:23)
[2021-05-02] MEDS: ASPIRIN 81 MG ECTAB PO SCH (08:23)
[2021-05-02] MEDS: POLYETHYLENE (MIRALAX) 17 GM PACK PO SCH ×2 (08:24→20:33)
[2021-05-02] MEDS: FLUTICASONE/VILANTEROL 200/25MCG 14 PUFFS/INHALER INH SCH (08:24)
[2021-05-02] MEDS: CASPOFUNGIN 50 MG in SODIUM CHLORIDE 0.9% 250 ML IV SCH (08:26)
[2021-05-02] MEDS: INSULIN GLARGINE SOLOSTAR 100 UNITS/ML 3 ML PEN SC SCH ×2 (08:29→20:37)
[2021-05-02] MEDS: INSULIN ASPART 100 UNITS/ML 3 ML PEN SC SCH ×4 (08:29→20:36)
[2021-05-02 08:32] LABS: Basophils # (auto) 0.03 K/uL (0-0.2); Basophils % (auto) 0.4 %; Eosinophils # (auto) 0.11 K/uL (0-0.5); Eosinophils % (auto) 1.6 %; Hematocrit (blood only) 27.3 % (42-52); Hemoglobin 8.7 g/dL (14.0-18.0); Immature Granulocytes # (auto) 0.13 K/uL (0.00-0.02); Immature Granulocytes % (auto) 1.9 %; Lymphocytes # (auto) 1.21 K/uL (1.2-3.4); Lymphocytes % (auto) 17.9 %; Mean Corpuscular Hemoglobin 29.1 pg (25-34); Mean Corpuscular Hgb Conc 31.9 g/dL (32-36); Mean Corpuscular Volume 91.3 fL (80-100); Mean Platelet Volume 11.7 fL (7.4-10.4); Monocytes # (auto) 0.43 K/uL (0.11-0.59); Monocytes % (auto) 6.4 %; Neutrophils # (auto) 4.85 K/uL (1.4-6.5); Neutrophils % (auto) 71.8 %; Nucleated RBC # (auto) 0.04 K/uL (0-0); Nucleated RBC % (auto) 0.6 %; Platelet Count 146 K/uL (130-400); RDW Standard Deviation 50.5 fL (36.4-46.3); Red Blood Count 2.99 M/uL (4.7-6.1); White Blood Count 6.76 K/uL (4.8-10.8)
[2021-05-02 09:03] LABS: BUN Creatinine Ratio 13.9 (10-20); Calcium 8.4 mg/dl (8.5-10.1); Creatinine Clr Calc Pharmacy 99.6 ml/min; Est GFR (African American) 95.6 ml/min; Est GFR (Non-African American) 82.5 ml/min; Potassium 3.5 mmol/L (3.5-5.1)
[2021-05-02] MEDS: METOPROLOL SUCC 25MG EXT REL TAB PO SCH (09:45)
--- NOTE | 2021-05-02 14:29 | Hospitalist Progress Note ---
Date of Service May 02, 2021 Assessment & Plan (1) Sepsis: Plan: 2/2 urinary tract infection with recent stent exchange and laser lithotripsy left left-sided stone - Complicated by fungemia 05/01 pending speciation, anticipate rubia based on prior hx and cultures Patient on Diflucan for fungal UTI up until stent exchange Postoperatively with severe rigors which lasted about 30 hours Blood culture from 04/27+ for yeast pending speciation, suspect Rubia based on prior UA Patient converted From Diflucan to caspofungin due to fungemia. Anticipate 14- day course from first set of negative surveillance cultures. - Continue caspofungin 50 mg IV daily maintenance dose. Would consider day #1 05/01 if cultures remain negative. Anticipate need for US guided IV at discharge for continued IV therapy, .Placement pending negative blood cultures x72 hours. Surveillance cultures ordered 05/01 (2) Candidal UTI (urinary tract infection): Plan: -c albicans on prior 2 urine cultures. -complicated UTI due to ureteral stent and kidney stone -previously had received 6 days of IV/PO diflucan - back on caspo 2/2 fungemia (3) Hydronephrosis concurrent with and due to calculi of kidney and ureter: Plan: -s/p L ureteral stent deployment by Dr Garcia on 04/10/21 for 8mm stone on left. - s/p laser litho and stent exchange by Dr Field. -Appreciate urology assistance. -Cont antifungal therapy -Cont flomax. -Follow all cx's to completion. (4) SUE (acute kidney injury): Plan: -Presenting Cr 1.49 at time of admission. -Cr had improved, then worsened again to 1.6 in the midst of his laser litho/stent exchange. - normalized 927 (5) Anemia: Plan: -Hb 13.5 on 04/09/21 -Pt's Hemoglobin has been fluctuating between 8 and 10 over the last week - Hemoglobin dropped 1 gram in midst of being on heparin IV. - heparin gtt stopped. -previous fecal occult test was NEGATIVE. - FOB negative - Discussed risks/benefits Of A. fib prophylactic anticoagulation in the setting of his recent illness, procedures, and bleeding. Following risk benefits discussion will defer for 48 after stend removal, and at least until no additional procedures anticipated and then resume. Discussed that he would like ly need around 5 days of bridge therapy with warfarin. 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 Doubt contributing to #1. (8) Diabetes mellitus: Plan: a1c 8.6% earlier this month. cont basal-bolus insulin. controlled (9) CAD (coronary artery disease): Plan: No symptoms of CAD at this time. Continue statin, BB, asa. (10) Hypertension: Plan: Cont metoprolol. Cont to hold HCTZ and SUJATHA. (11) Atrial fibrillation: Plan: -heparin drip stopped; see "anemia" above -hold off on coumadin until we know that no further procedures are needed and that H/H are stable -cont BB (metoprolol) (12) Ectatic thoracic aorta: Plan: -4.1cm -nothing to do at this time -continue beta vivian (13) Pacemaker: Plan: -functioning appropriately (14) Hyponatremia: Plan: -resolved (15) Hypokalemia: Plan: -replaced and resolved (16) DVT prophylaxis: Plan: -holding heparin drip - see above. SCDs (17) Chronic cough: Plan: -present x years -cont tessalon 200mg TID -dx previously with post-nasal drip syndrome -losartan could potentially contribute -consider holding losartan for several weeks to see if any improvement -he has scant end-exp wheezes when he coughs - may have bronchial issue and would benefit from PFTs and pulmonary f/u post-d/c in meantime - to help w/ this chronic cough - started symbicort 2 puffs BID -CT chest done 04/18/21 as outpatient - multiple pulmonary nodules - all smaller in size in comparison to previous CT. No infiltrates/pneumonia/fluid. -f/u with pulmonary for all of these issues as outpatient - recommend PFTs, etc (18) Fungemia: Plan: - See sepsis/jennifer above Plan: left message for family 04/24 updated pt's son 04/25 updated pt's son 04/27 updated pt's son 04/29 updated pt's son 05/01 Admission and Anticipated Discharge Date Admission Date: April 22, 2021 Subjective Seen at bedside, patient sitting up in chair today. Reports no changes from condition last night. Denies fever, chills, sweats. No chest pain or chest pressure. Would like to get out of the hospital, understands the slow course moving forward. Denies swelling/pain in his legs or calf. No shortness of breath. Initially refused but now agrees to prophylactic Lovenox dosing while inpatient, continuing to defer therapeutic anticoagulation until post procedures. Review of Systems Review of Systems: 10 point review systems negative except as otherwise noted Physical Exam Physical Exam: General: A&Ox3. NAD. Cooperative.Sitting up in chair. HEENT: Atraumatic, normocephalic.Visual acuity and hearing grossly intact. Pulm: CTAB A&P. -wheezes, -rales, -rhonchi. Symmetrical chest rise. No increase work of breathing. No respiratory distress. Cardiac: Irregularly irregular, -mrg. Radial pulses intact and symmetrical. Abdominal: Nontender, nondistended, soft. BS present. Extremities: 1+ pitting edema bilaterally, nontender. No erythema/warmth. Results & Data Results & Data ([facility]) Vital Signs (Past 12 Hours) Vital Signs Temp Pulse Pulse Resp BP BP Pulse Ox 05/02/21 11:00 36.6 C 61 20 112/64 94 05/02/21 07:50 60 05/02/21 07:00 36.6 C 66 20 152/73 H 92 05/02/21 03:01 36.9 C 60 18 136/67 96 PG Care Time/CCT Total # of Minutes Spent Total Time Spent with Patient: Total time spent is greater than 50% in coordination of care (as documented) at patient's floor/unit and/or counseling patient: Coding Level of Care Code 19587 Subseq Hosp Care Lvl 3 Diagnoses Sepsis A41.9 Candidal UTI (urinary tract infection) B37.49 Hydronephrosis concurrent with and due to calculi of kidney and ureter N13.2 SUE (acute kidney injury) N17.9 Anemia D64.9 Constipation K59.00 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
[2021-05-02] MEDS: ENOXAPARIN INJ 40 MG/0.4 ML SYR SQ SCH (16:30)
[2021-05-02] MEDS: ATORVASTATIN 40 MG TAB PO SCH (20:34)
[2021-05-03] MEDS: SENNA 8.6 MG TAB PO SCH (08:17)
[2021-05-03] MEDS: POLYETHYLENE (MIRALAX) 17 GM PACK PO SCH ×2 (08:17→21:48)
[2021-05-03] MEDS: INSULIN ASPART 100 UNITS/ML 3 ML PEN SC SCH ×4 (09:21→21:48)
[2021-05-03] MEDS: ASPIRIN 81 MG ECTAB PO SCH (09:26)
[2021-05-03] MEDS: CASPOFUNGIN 50 MG in SODIUM CHLORIDE 0.9% 250 ML IV SCH (09:26)
[2021-05-03] MEDS: ENOXAPARIN INJ 40 MG/0.4 ML SYR SQ SCH (09:27)
[2021-05-03] MEDS: BENZONATATE 100 MG CAPSULE PO SCH ×3 (09:27→21:47)
[2021-05-03] MEDS: FLUTICASONE/VILANTEROL 200/25MCG 14 PUFFS/INHALER INH SCH (09:27)
[2021-05-03] MEDS: PANTOprazole 40 MG TAB PO SCH (09:28)
[2021-05-03] MEDS: METOPROLOL SUCC 25MG EXT REL TAB PO SCH (09:28)
[2021-05-03] MEDS: TAMSULOSIN HCL 0.4 MG CAP PO SCH (09:29)
[2021-05-03] MEDS: INSULIN GLARGINE SOLOSTAR 100 UNITS/ML 3 ML PEN SC SCH ×2 (09:29→21:48)
[2021-05-03] MEDS ORDERED: LORazepam 0.5 MG/1 ML VIAL IV PRN (17:15)
--- NOTE | 2021-05-03 17:27 | Hospitalist Progress Note ---
Date of Service May 03, 2021 Assessment & Plan (1) Sepsis: Plan: 2/2 urinary tract infection with recent stent exchange and laser lithotripsy left left-sided stone - Hemodynamically stable - Complicated by fungemia 05/01 pending speciation, anticipate rubia based on prior hx and cultures Patient on Diflucan for fungal UTI up until stent exchange Postoperatively with severe rigors which lasted about 30 hours Blood culture from 04/27+ for yeast pending speciation, suspect Rubia based on prior UA Patient converted From Diflucan to caspofungin due to fungemia. Anticipate 14- day course from first set of negative surveillance cultures. - Continue caspofungin 50 mg IV daily maintenance dose. Would consider day #1 05/01 if cultures remain negative. Anticipate need for US guided IV at discharge for continued IV therapy. Placement pending negative blood cultures x72 hours. Surveillance cultures ordered 05/01 Dispo: Anticipate US-guided IV placement (good for 3 weeks) to be placed tomorrow if cultures remain negative, daily caspofungin at [facility] x14 days minimum, at least 1 week past stent removal. Pt with family that can assist transport. (2) Candidal UTI (urinary tract infection): Plan: -c albicans on prior 2 urine cultures. -complicated UTI due to ureteral stent and kidney stone -previously had received 6 days of IV/PO diflucan - back on caspo 2/2 fungemia (3) Hydronephrosis concurrent with and due to calculi of kidney and ureter: Plan: -s/p L ureteral stent deployment by Dr Garcia on 04/10/21 for 8mm stone on left. - s/p laser litho and stent exchange by Dr Field. -Appreciate urology assistance. -Cont antifungal therapy -Cont flomax. -Follow all cx's to completion. (4) SUE (acute kidney injury): Plan: -Presenting Cr 1.49 at time of admission. -Cr had improved, then worsened again to 1.6 in the midst of his laser litho/stent exchange. - normalized 05/01 (5) Anemia: Plan: -Hb 13.5 on 04/09/21 -Pt's Hemoglobin has been fluctuating between 8 and 10 over the last week - Hemoglobin dropped 1 gram in midst of being on heparin IV. - heparin gtt stopped. -previous fecal occult test was NEGATIVE. - FOB negative - Discussed risks/benefits Of A. fib prophylactic anticoagulation in the setting of his recent illness, procedures, and bleeding. 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 Doubt contributing to #1. (8) Diabetes mellitus: Plan: a1c 8.6% earlier this month. cont basal-bolus insulin. controlled (9) CAD (coronary artery disease): Plan: No symptoms of CAD at this time. Continue statin, BB, asa. (10) Hypertension: Plan: Cont metoprolol. Cont to hold HCTZ and SUJATHA. (11) Atrial fibrillation: Plan: -heparin drip stopped; see "anemia" above -Anticipate lovenox 1.5mpk QD bridge with warfarin tx starting 05/04 (12) Ectatic thoracic aorta: Plan: -4.1cm -nothing to do at this time -continue beta vivian (13) Pacemaker: Plan: -functioning appropriately (14) Hyponatremia: Plan: -resolved (15) Hypokalemia: Plan: -replaced and resolved (16) DVT prophylaxis: Plan: -holding heparin drip - see above. SCDs (17) Chronic cough: Plan: -present x years -cont tessalon 200mg TID -dx previously with post-nasal drip syndrome -losartan could potentially contribute -consider holding losartan for several weeks to see if any improvement -he has scant end-exp wheezes when he coughs - may have bronchial issue and would benefit from PFTs and pulmonary f/u post-d/c in meantime - to help w/ this chronic cough - started symbicort 2 puffs BID -CT chest done 04/18/21 as outpatient - multiple pulmonary nodules - all smaller in size in comparison to previous CT. No infiltrates/pneumonia/fluid. -f/u with pulmonary for all of these issues as outpatient - recommend PFTs, etc - Remains normotensive (18) Fungemia: Plan: - See sepsis/jennifer above Plan: left message for family 04/24 updated pt's son 04/25 updated pt's son 04/27 updated pt's son 04/29 updated pt's son 05/01 Admission and Anticipated Discharge Date Admission Date: April 22, 2021 Subjective Seen at bedside. No acute distress. No fevers, chills, sweats, chest pain, chest pressure, leg pain. Reviewed plan of care, PIV placement, and plan for [facility] treatment and bridge back to warfarin. Pt with no additional questions or concerns. Review of Systems Review of Systems: 10 point review systems negative except as otherwise noted Physical Exam Physical Exam: General: A&Ox3. NAD. Cooperative.Sitting up in chair. HEENT: Atraumatic, normocephalic.Visual acuity and hearing grossly intact. Pulm: Symmetrical chest rise. No increase work of breathing. No respiratory distress. Cardiac: Irregularly irregular, Radial pulses intact and symmetrical. Abdominal: Nontender, nondistended, soft. BS present. Extremities: 1+ pitting edema bilaterally, nontender. No erythema/warmth. Results & Data Results & Data ([facility]) Vital Signs (Past 12 Hours) Vital Signs Temp Pulse Pulse Resp BP Pulse Ox 05/03/21 16:00 60 05/03/21 15:15 36.4 C L 60 18 129/67 98 05/03/21 11:00 36.5 C 60 20 136/64 95 05/03/21 07:37 36.7 C 62 20 149/75 H 91 05/03/21 07:24 60 PG Care Time/CCT Total # of Minutes Spent Total Time Spent with Patient: Total time spent is greater than 50% in coordination of care (as documented) at patient's floor/unit and/or counseling patient: Coding Level of Care Code 45255 Subseq Hosp Care Lvl 2 Diagnoses Sepsis A41.9 Candidal UTI (urinary tract infection) B37.49 Hydronephrosis concurrent with and due to calculi of kidney and ureter N13.2 SUE (acute kidney injury) N17.9 Anemia D64.9 Constipation K59.00 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
[2021-05-03] MEDS: ATORVASTATIN 40 MG TAB PO SCH (21:47)
[2021-05-04 08:07] LABS: INR 1.2 (0.9-1.1); Prothrombin Time 11.8 Seconds (9.0-12.0)
[2021-05-04] MEDS ORDERED: ENOXAPARIN 150 MG/ML SYR SQ SCH (09:00)
[2021-05-04] MEDS: CASPOFUNGIN 50 MG in SODIUM CHLORIDE 0.9% 250 ML IV SCH (09:03)
[2021-05-04] MEDS: BENZONATATE 100 MG CAPSULE PO SCH ×2 (09:03→12:28)
[2021-05-04] MEDS: TAMSULOSIN HCL 0.4 MG CAP PO SCH (09:04)
[2021-05-04] MEDS: ASPIRIN 81 MG ECTAB PO SCH (09:05)
[2021-05-04] MEDS: PANTOprazole 40 MG TAB PO SCH (09:05)
[2021-05-04] MEDS: METOPROLOL SUCC 25MG EXT REL TAB PO SCH (09:05)
[2021-05-04] MEDS: INSULIN ASPART 100 UNITS/ML 3 ML PEN SC SCH ×2 (09:06→12:27)
[2021-05-04] MEDS: INSULIN GLARGINE SOLOSTAR 100 UNITS/ML 3 ML PEN SC SCH (09:06)
[2021-05-04] MEDS: FLUTICASONE/VILANTEROL 200/25MCG 14 PUFFS/INHALER INH SCH (09:07)
[2021-05-04] MEDS: SENNA 8.6 MG TAB PO SCH (09:07)
[2021-05-04] MEDS: POLYETHYLENE (MIRALAX) 17 GM PACK PO SCH (09:08)
[2021-05-04 09:50] LABS: Hematocrit (blood only) 28.7 % (42-52); Mean Corpuscular Hemoglobin 28.9 pg (25-34); Mean Corpuscular Hgb Conc 31.4 g/dL (32-36); Mean Corpuscular Volume 92.3 fL (80-100); Mean Platelet Volume 11.9 fL (7.4-10.4); Platelet Count 220 K/uL (130-400); RDW Coefficient of Variation 15.3 % (11.5-14.5); RDW Standard Deviation 51.6 fL (36.4-46.3); Red Blood Count 3.11 M/uL (4.7-6.1); White Blood Count 8.33 K/uL (4.8-10.8)
[2021-05-04 10:41] LABS: BUN Creatinine Ratio 11.1 (10-20); Calcium 8.3 mg/dl (8.5-10.1); Creatinine Clr Calc Pharmacy 95.2 ml/min; Est GFR (African American) 89.9 ml/min; Est GFR (Non-African American) 77.5 ml/min; Potassium 3.5 mmol/L (3.5-5.1)
[2021-05-04 10:50] LABS: Basophils # (auto) 0.03 K/uL (0-0.2); Basophils % (auto) 0.4 %; Eosinophils # (auto) 0.16 K/uL (0-0.5); Eosinophils % (auto) 1.9 %; Immature Granulocytes # (auto) 0.23 K/uL (0.00-0.02); Immature Granulocytes % (auto) 2.8 %; Lymphocytes # (auto) 1.92 K/uL (1.2-3.4); Monocytes # (auto) 0.31 K/uL (0.11-0.59); Monocytes % (auto) 3.7 %; Neutrophils # (auto) 5.68 K/uL (1.4-6.5); Neutrophils % (auto) 68.2 %
[2021-05-04] MEDS ORDERED: WARFARIN SOD 10 MG TAB PO SCH (16:00)
--- NOTE | 2021-05-04 16:47 | Discharge Summary ---
Date of Service May 04, 2021 Admission HPI Per Admitting Provider 65 yo M in ER for generalized chills and shaking. states he had a left ureteral stent placed by urology last week and suffers from many kidney stones. In the past few days had been feeling warm, shivering, shaking throughout and came to get checked out at the ER. Denies pain or burning with urination, no nausea, vomiting or diarrhea. no measured fevers. does have a hx of MRSA skin infections, has never had psue odmonas to his recollection. Admission Exam Per Admitting Provider Constitutional: obese, in no apparent distress, sitting comfortably in bed. Eyes: EOMI, pupils equal and reactive bilaterally, no scleral icterus Cardiac: RRR, no murmurs, gallops or rubs. Normal S1, S2 Pulm: CTA BL, no wheezes, rhonchi, crackles or rubs, moving air well throughout both lungs Abd: soft, nontender, nondistended, normal bowel sounds, no rebound or guarding Extremities: 2+ peripheral pulses, no edema Neuro: no focal deficits, moving all 4 limbs, A&Ox3 foot: bandage covering healing right foot ulcer, wound healing well without exudate or purulence. dry. Principal Diagnosis Left ureteral calculus Candidal UTI Candidemia Discharge Exam General: A&Ox3. NAD. Cooperative.Sitting up in chair. HEENT: Atraumatic, normocephalic.Visual acuity and hearing grossly intact. Pulm: Symmetrical chest rise. No increase work of breathing. No respiratory distress. Cardiac: Irregularly irregular, Radial pulses intact and symmetrical. Abdominal: Nontender, nondistended, soft. BS present. Extremities: 1+ pitting edema bilaterally, nontender. No erythema/warmth. Discharge Data Allergies Allergy/AdvReac Type Severity Reaction Status Date / Time No Known Allergies Allergy Verified 04/21/21 20:13 Consultations 04/21/21 23:29 Consult Urology Routine 04/22/21 00:39 ED Decision to Admit Stat Procedures Performed Operation Date: 04/27/21 10:35 Actual Procedures p Ureteronephroscopy, Laser Destruction of the Stone, (Left) - Sudhir Field MD s Cystoscopy(Not Applicable) - Sudhir Field MD s Left Insertion of Stent Catheter(Left) - Sudhir Field MD Ordered Studies 04/21/21 19:44 CT abdomen pelvis wo/w con Stat Hospital Course (1) Hydronephrosis concurrent with and due to calculi of kidney and ureter: Renzo is a 65-year-old male with a past medical history of ureteral calculi, atrial fibrillation, dyslipidemia, coronary artery disease, diabetes with foot ulceration, prostate cancer, and pacemaker placement who presented to [facility] with a left kidney stone and whose course was complicated by sepsis and fungemia following stent replacement. To do as outpatient: 1. Complete minimum 14 days of caspofungin for Grace fungemia. Patient should have 14 days past last set of blood cultures that remain negative. If blood cultures returned positive, reassess ultrasound guided peripheral IV for need for replacement, repeat surveillance cultures, and extend therapy. Recommend at least 7 days of caspofungin treatment past stent removal. 2. Follow-up with urology for reevaluation of hydro and stent removal 3. Follow-up with pulmonology for chronic cough/potential PFTs 4. Titration of warfarin, recheck INR, completion of Lovenox bridge. Recheck CBC to ensure hemoglobin stability 5. Continue routine wound care for legs Hydronephrosis due to left renal calculi -s/p L ureteral stent deployment by Dr Garcia on 04/10/21 for 8mm stone on left. Admitted 04/22 for hydronephrosis despite stent Urine consulted, recommended antibiotic therapy to minimize sepsis risk prior to manipulation. Patient was continued on cefepime and then converted to Diflucan due to Grace UTI - s/p laser litho and stent exchange by Dr Field 04/27, complicated by sepsis as managed below Stent remained in place at discharge, patient to follow-up with urology on 05/09 Continue antibiotics as noted below for fungemia -Cont flomax. -Follow all cx's to completion. (2) Sepsis: 2/2 urinary tract infection with recent stent exchange and laser lithotripsy left left-sided stone -Following stent exchange on 04/27 patient became febrile, hypotensive, and clinically ill consistent with sepsis. Postoperatively with severe rigors which lasted about 30 hours Patient on Diflucan for fungal UTI up until stent exchange Blood culture from 04/27+ for Grace Patient converted From Diflucan to caspofungin due to fungemia. Anticipate 14- day course from first set of negative surveillance cultures. - Continue caspofungin 50 mg IV daily maintenance dose. Would consider day #1 05/01 if cultures remain negative. Ultrasound-guided IV was placed following 3 days of negative surveillance cultures which were ordered 05/01. Patient discharged to complete 14 days of daily [facility]ofungin at the [facility]. Recommend 14 days minimum past set of negative cultures, and at least 1 week past stent removal. If blood cultures returned positive patient will require line reassessment, repeat surveillance cultures, and treatment extended for 14 days past whenever cultures remain negative. Discharged to follow-up with PCP and urology as outpatient (3) Candidal UTI (urinary tract infection): -c albicans on prior 2 urine cultures. -complicated UTI due to ureteral stent and kidney stone -previously had received 6 days of IV/PO diflucan -Discharged on caspofungin treatment as noted above (4) SUE (acute kidney injury): -Presenting Cr 1.49 at time of admission. -Cr had improved, then worsened again to 1.6 in the midst of his laser litho/stent exchange. - normalized 05/01 (5) Anemia: -Hb 13.5 on 04/09/21 -Pt's Hemoglobin has been fluctuating between 8 and 10 over the last week - Hemoglobin dropped 1 gram in midst of being on heparin IV. - heparin gtt stopped. -previous fecal occult test was NEGATIVE. - FOB negative - Discussed risks/benefits Of A. fib prophylactic anticoagulation in the setting of his recent illness, procedures, and bleeding. - Hemodynamically stable, warfarin was resumed with Lovenox bridge at discharge with risk/benefits discussion of bleeding risk versus A. fib risk. 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 (8) Diabetes mellitus: a1c 8.6% earlier this month. cont basal-bolus insulin. Adequate control during admission (9) CAD (coronary artery disease): No symptoms of CAD during admission Continued statin, beta-vivian during admission. Aspirin paused concern of bleeding and resumed after hemoglobin stabilized (10) Hypertension: Cont metoprolol. Hydrochlorothiazide was held for kidney injury, resumed on discharge We will start was held due to concern for inciting his cough. Patient expressed concern about this, discussed that he may remain on this if it is not bothersome to him but that it was recommended by prior to prior to be held as it may contribute to his chronic dry cough. 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 (11) Atrial fibrillation: -heparin drip stopped; see "anemia" above -Rate controlled with beta-vivian as above, discharged to resume warfarin as above (12) Ectatic thoracic aorta: -4.1cm -No acute management was indicated during admission -continue beta vivian (13) Pacemaker: -functioning appropriately (14) Hyponatremia: -resolved (15) Hypokalemia: -replaced and resolved (16) DVT prophylaxis: -holding heparin drip - see above. SCDs (17) Chronic cough: -present x years -cont tessalon 200mg TID -dx previously with post-nasal drip syndrome -losartan could potentially contribute -consider holding losartan for several weeks to see if any improvement -he has scant end-exp wheezes when he coughs - may have bronchial issue and would benefit from PFTs and pulmonary f/u post-d/c in meantime - to help w/ this chronic cough - started symbicort 2 puffs BID -CT chest done 04/18/21 as outpatient - multiple pulmonary nodules - all smaller in size in comparison to previous CT. No infiltrates/pneumonia/fluid. -f/u with pulmonary for all of these issues as outpatient - recommend PFTs, etc - Remains normotensive (18) Fungemia: - See sepsis/jennifer above Total Time Total Time Spent Total Time Spent (In Minutes): Will Symes spent including direct patient care, coordination of care, and documentation on day of discharge approximately 60 minutes. Discharge Plan Discharge Items Patient Disposition: Home - Self-Care Reason For Visit: CHILLS, KIDNEY STONES Discharge Diagnosis: Fungemia, candidemia Activity: Per Instructions section Non-emergency contact: Primary Care Provider and Urologist Call non-emergency contact if: you have any medication questions, your symptoms worsen, your pain is not controlled, your pain is worsening, your pain is unusual for you and your pain is concerning for you Follow-up/Referrals: Mary Flood CRNP [Primary Care Provider] - 05/12/21 10:30 am Vinay Mcallister MD [Physician] - 05/09/21 9:40 am (Stent removal) Diet: Carb Consistent or DM2 Ambulatory Orders: Prothrombin Time INR (Routine) Timeframe: 2 Days Location: Determined by Patient Ordered By: Moshe Clarke Attending Provider Instructions: You are seen in the hospital for a fungal infection requiring a urinary stent and IV medication treatment. You have had your stent replaced by urology, and will require follow-up with their office next Saturday for reassessment and potential removal. Due to a fungal infection of your bloodstream you are being placed on ongoing IV antibiotics with caspofungin as noted below. This should be continued for at least a week after your stent removal, and at least 14 days from the date of your last negative blood culture. This has been discussed with you and you are being set up with transfusions at the medical transfusion unit and a ultrasound-guided IV which can stay in place for 3 weeks was placed prior to discharge. You have been prescribed a medication, caspofungin. Please return to the [facility] for an infusion of caspofungin 50 mg once daily. This should be continued for 14 days after your last negative blood culture, and at least 7 days past her stent removal as noted above. If your blood cultures returned positive, repeat blood cultures will need to be drawn and your outpatient provider will need to assess whether or not your IV line needs to be replaced. The risk/benefits of anticoagulation given your concern for downtrending hemoglobin versus atrial fibrillation was discussed during admission. Unsure decision making your warfarin is being resumed with a Lovenox once a day bridge. Please take Lovenox 150 mg once daily until warfarin is therapeutic. A warfarin 10 mg initial dose was given prior to discharge, please continue your outpatient warfarin dosing with follow-up INR in 3 days and follow-up to your primary care physician for additional adjustments/titrations. An appointment has been set up for you with urology for next Saturday, you have received a phone call to confirm this appointment. If you need to cancel or change this appointment, please contact their office directly to reschedule. An appointment with your primary care provider Dr. Flood is being scheduled for you. You should be seen within 5 days and for repeat INR testing. If you do not hear from their office within 48 hours regarding an appointment please call her office directly at [phone]. A INR check has been ordered for you for this Saturday. Please have blood drawn at [facility] when you present for your caspofungin transfusion to have your INR checked as it is unlikely you will be able to be seen by your PCP over the weekend. You should receive a call with your INR result and whether any warfarin adjustments are required within 24 hours. If you develop any new or worsening symptoms including fever, chills, sweats, chest pain, chest pressure, difficulty breathing, uncontrolled nausea/vomiting, rash, wheezing, passing out or nearly passing out, bleeding, black/bloody bowel movements, or other new or concerning symptoms please call your primary care physician at [phone], or call 911 for re-evaluation in the emergency department if you are very concerned. Pending Studies at Discharge: Yes (INR check) Stand-Alone Forms: My [facility], Smoking Cessation Medications and DC Order Prescriptions: New enoxaparin [Lovenox] 150 mg/mL Syringe 150 mg subcut Q24H 5 Days Qty: 5 RF: 0 caspofungin 50 mg recon soln 50 mg IV DAILY 10 Days Qty: 10 RF: 1 Continued Carnivora 250 mcg PO BID RF: 0 coenzyme Q10 [Co Q-10] 200 mg capsule 200 mg PO DAILY RF: 0 Nattokinase Plus 1 tab PO DAILY RF: 0 ascorbic acid (vitamin C) 500 mg capsule 500 mg PO BID RF: 0 meclizine 25 mg tablet 25 mg PO TID PRN (Reason: dizziness) Qty: 30 RF: 2 atorvastatin 40 mg tablet 40 mg PO HS Qty: 90 RF: 1 indomethacin 25 mg capsule 50 mg PO BID PRN (Reason: GOUT) RF: 0 hydrochlorothiazide 25 mg tablet 25 mg PO QAM RF: 0 warfarin 5 mg tablet 5 - 10 mg PO UD RF: 0 leuprolide 7.5 mg injectable 7.5 mg IM DIRECTED RF: 0 aspirin 81 mg Tablet,Delayed Release (Dr/Ec) 81 mg PO QAM RF: 0 metoprolol succinate 25 mg Tablet Extended Release 24 Hr 25 mg PO QAM RF: 0 tamsulosin 0.4 mg capsule 0.4 mg PO QAM RF: 0 acetaminophen [Tylenol Extra Strength] 500 mg Tablet 500 mg PO Q6H PRN (Reason: Pain) RF: 0 Janumet XR 50-1,000 mg tablet, ER multiphase 24 hr 1 tab PO BID RF: 0 polyethylene glycol 3350 [Miralax] 17 gram Powder In Packet 17 g PO DAILY PRN (Reason: constipation) Qty: 30 RF: 0 phenazopyridine [Pyridium] 200 mg Tablet 200 mg PO TID PRN (Reason: painful urination) Qty: 14 RF: 0 Discontinued fluconazole [Diflucan] 150 mg tablet 150 mg PO DAILY 2 Days Qty: 2 RF: 0 losartan 50 mg Tablet 50 mg PO QAM RF: 0 Discharge Orders: Discharge Order (Routine); Ordered 05/04/21 Ordered By: Moshe Boo Admission Data Admit Date/Time: 04/22/21 01:07 Attending Provider: Moshe Boo Admit Provider: Brianna Cavazos Primary Care Provider: Mary Flood Other Providers: Vinay Mcallister ; Remberto Baptiste Other Interventions: Discharge Summary Assessment (RN) Last Done: 05/04/21 14:01 Coding Level of Care Code D/C DAY MANAGEMENT >30 MINS Diagnoses Sepsis A41.9 Candidal UTI (urinary tract infection) B37.49 Hydronephrosis concurrent with and due to calculi of kidney and ureter N13.2 SUE (acute kidney injury) N17.9 Anemia D64.9 Constipation K59.00 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
[2021-05-05] MEDS ORDERED: ENOXAPARIN 150 MG/ML SYR SQ ONE (10:07)
== END 2021-05-04 15:30 | disposition home or self-care (01) | DRG 659 ==
LOC: ED 19:00 → SUATTDRO 04-22 01:07 → 2W 04-22 01:07
DX: Z85.46 Personal history of malignant neoplasm of prostate; T83.593A Infection and inflammatory reaction due to other urinary stents, initial encounter; E87.1 Hypo-osmolality and hyponatremia; R05 Cough; Z79.84 Long term (current) use of oral hypoglycemic drugs; Z20.822 Contact with and (suspected) exposure to COVID-19; I25.10 Atherosclerotic heart disease of native coronary artery without angina pectoris; Y83.2 Surgical operation with anastomosis, bypass or graft as the cause of abnormal reaction of the patient, or of later complication, without mention of misadventure at the time of the procedure; K59.00 Constipation, unspecified; Z95.0 Presence of cardiac pacemaker; Z79.818 Long term (current) use of other agents affecting estrogen receptors and estrogen levels; I77.810 Thoracic aortic ectasia; E11.621 Type 2 diabetes mellitus with foot ulcer; N13.6 Pyonephrosis; E87.6 Hypokalemia; Z79.01 Long term (current) use of anticoagulants; Z80.42 Family history of malignant neoplasm of prostate; D50.9 Iron deficiency anemia, unspecified; L97.512 Non-pressure chronic ulcer of other part of right foot with fat layer exposed; I48.0 Paroxysmal atrial fibrillation; T46.4X5A Adverse effect of angiotensin-converting-enzyme inhibitors, initial encounter; G47.33 Obstructive sleep apnea (adult) (pediatric); Z87.442 Personal history of urinary calculi; E78.5 Hyperlipidemia, unspecified; I10 Essential (primary) hypertension; Z51.81 Encounter for therapeutic drug level monitoring; R91.8 Other nonspecific abnormal finding of lung field; N17.9 Acute kidney failure, unspecified; I49.5 Sick sinus syndrome; B37.7 Candidal sepsis; Z79.82 Long term (current) use of aspirin; Z79.899 Other long term (current) drug therapy; Z82.49 Family history of ischemic heart disease and other diseases of the circulatory system; B37.49 Other urogenital candidiasis; Z95.1 Presence of aortocoronary bypass graft; Z96.0 Presence of urogenital implants; E11.42 Type 2 diabetes mellitus with diabetic polyneuropathy; Z83.3 Family history of diabetes mellitus

== ENCOUNTER 2021-05-09 16:10 | Inpatient (IN) ==
[2021-05-09] MEDS ORDERED: CASPOFUNGIN 50 MG in SODIUM CHLORIDE 0.9% 250 ML IV STA (17:19)
--- NOTE | 2021-05-09 17:21 | Emergency Department Note ---
Impression & Plan Fungemia, COVID-19, Subtherapeutic international normalized ratio (INR) ED Provider Note NAME: ASTRID GUILLAUME AGE: 65 SEX: M : 1955 ARRIVES VIA: Walk-In INFORMANT: Patient ED PROVIDER(S): Saeed Bell DO CHIEF COMPLAINT: Need for caspofungin HPI: Patient is a 65-year-old male who was recently admitted and discharged from [facility] on 04 May for fungemia. He has been prescribed caspofungin for a total of 14 days. He has gotten 3 doses at the [facility] and received several doses in the hospital prior to discharge. He has several fam esperanza members that he has been exposed to who were positive for Covid. He did have a fever over the weekend but that resolved 48 hours ago. He had this for about 3 days. No chest pain or shortness of breath. No belly pain, nausea, vomiting, or diarrhea. No fevers. Yesterday he had tested for Covid and came back positive. [facility] would not see him and consequently referred him into the ER. The PCP had been trying to get him out patient treatment for two days but has been unsuccessful. ROS: See above HPI for pertinent positives & negatives. A total of 10 systems reviewed and were otherwise negative. PAST MEDICAL HISTORY:See Below PAST SURGICAL HISTORY:See Below FAMILY HISTORY:See Below SOCIAL HISTORY:See Below HOME MEDICATIONS:See Below ALLERGIES:See Below VITALS:See Below PHYSICAL EXAMINATION: GENERAL: Sitting up in bed, alert, well appearing, well nourished, no distress, non-toxic EYE EXAM: normal conjunctiva. PERRL and EOM's grossly intact. OROPHARYNX: no exudate, no erythema, lips, buccal mucosa, and tongue normal and mucous membranes are moist NECK: supple, no nuchal rigidity, no adenopathy, non-tender LUNGS: Clear to auscultation. Normal chest wall mechanics HEART: no murmurs, S1 normal and S2 normal ABDOMEN: abdomen soft, non-tender, normo-active bowel sounds, no masses, no rebound or guarding. UPPER EXTREMITIES: upper extremities are grossly normal. LOWER EXTREMITIES: No pitting edema. NEURO EXAM: Normal sensorium, cranial nerves II-XII grossly intact, normal spee ch, no gross weakness of arms, no gross weakness of legs. MEDICAL DECISION MAKING: Patient is a 65-year-old male with a history of fungemia who needs IV caspofungin who recently tested positive. [facility] has declined to treat him for the past 2 days. He has been working with his PCP for the past 2 days and they have been unsuccessful in getting him treatments and consequently was referred into the ER. IV was established blood work was obtained. Labs show a leukopenia at 4.6 consistent with the diagnosis of Covid. Hemoglobin was 8.9 consistent with previous on discharge. INR was subtherapeutic at 1.5. He was given 150 units of subcu Lovenox. BMP along with T bili and lipase is unremarkable. UA was contaminated. Chest x-ray was fairly unremarkable. He was given his IV caspofungin. I discussed with her care managers as well as Dr. Waters and Dr. Tamez and decision was made to observe him overnight due to the fungemia and the failure to come up with a reasonable plan as an outPt over the past two days. Triage Nursing notes reviewed. Limited review of prior medical records performed Vital Signs: reviewed and remarkable for no significant abnormalities Differential diagnosis: Infection, dehydration, metabolic abnormality, hypo/hyperglycemia, electrolyte disturbance, anemia, hypoxia, cardiac sources, intracerebral event, toxicologic, neurologic, as well as other pathologies. ER treatment provided: See below Diagnostics interpreted by me: ECG: none Cardiac Monitoring: An order was placed for continuous cardiac monitoring. The monitor shows a rate of 65 with sinus rhythm. Laboratory studies: As stated above and show below. Imaging studies: Portable AP upright 1 view chest shows no focal infiltrate. Consultation(s): none Procedures: none Critical Care: None Past Med/Surg History Medical History (Updated 05/09/21 @ 21:35 by Saeed Bell DO) CAD S/P percutaneous coronary angioplasty Close exposure to 2019 novel coronavirus Diabetic peripheral neuropathy associated with type 2 diabetes mellitus Diverticulosis of colon Gout Hydronephrosis of left kidney Intracanalicular fibroadenoma Kidney stone on left side Loss of protective sensation of skin of foot wears a special boot Obesity ALISSA (obstructive sleep apnea) no device Paroxysmal atrial fibrillation Pneumonia Pre-ulcerative corn or callous Prostate cancer (10/14/15) radiation and seed and now on lupron Sciatica Surgical wound present right foot and no longer has infection and follows with wound clinic 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 Claude Licea retrograde pyelogram with stent placement Status post laser lithotripsy of ureteral calculus 02/2019. LMA #5. No issues. 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 Beliefs That Will Affect Care: None marital status: / Current Living Situation: Alone current occupational status: retired How many Children do You have: 2 How many Children do You have Comment: local and able to assist as needed Feels Safe at Home: Yes Childhood Exposure to Second-Hand Smoke: No caffeine: Yes Dental Care, Regularly: Yes Physical Activity Frequency: Does not Exercise Seatbelt Use: sometimes Sunscreen Use: No Assistive Devices: Glasses Allergies Allergies Allergy/AdvReac Type Severity Reaction Status Date / Time No Known Allergies Allergy Verified 05/09/21 21:07 Home Meds Home Medications Medication Instructions Recorded Confirmed aspirin 81 mg tablet,delayed 81 mg PO QAM 06/26/18 05/09/21 release metoprolol succinate 25 mg 25 mg PO QAM 06/26/18 05/09/21 tablet,extended release 24 hr hydrochlorothiazide 25 mg tablet 25 mg PO QAM 06/23/19 05/09/21 Carnivora 250 mcg PO BID 01/26/20 05/09/21 Nattokinase Plus 1 tab PO DAILY 01/26/20 05/09/21 coenzyme Q10 200 mg capsule (Co 200 mg PO DAILY 01/26/20 05/09/21 Q-10) warfarin 5 mg tablet 5 - 10 mg PO UD tab 02/23/20 05/09/21 indomethacin 25 mg capsule 50 mg PO BID PRN 04/08/20 05/09/21 leuprolide 7.5 mg intramuscular 7.5 mg IM . EVERY 3 MONTHS 10/04/20 05/09/21 ascorbic acid (vitamin C) 500 mg 500 mg PO BID cap 01/09/21 05/09/21 capsule sitagliptin 50 mg-metformin ER 1 tab PO BID 04/09/21 05/09/21 1,000 mg tablet,extended release 24h mp (Janumet XR) tamsulosin 0.4 mg capsule 0.4 mg PO HS 04/20/21 05/09/21 acetaminophen 500 mg tablet 500 mg PO Q6H PRN 04/21/21 05/09/21 (Tylenol Extra Strength) Previous Rx's Medication Instructions Recorded meclizine 25 mg tablet 25 mg PO TID PRN #30 tab 06/24/19 atorvastatin 40 mg tablet 40 mg PO HS #90 tab 10/10/20 phenazopyridine 200 mg tablet 200 mg PO TID PRN #14 tab 04/11/21 (Pyridium) caspofungin 50 mg intravenous 50 mg IV DAILY 10 Days #10 ea 05/04/21 solution Results & Data (ED) Vital Signs Vital Signs - 24 hr 05/09/21 16:19 05/09/21 19:05 05/09/21 19:30 Temperature 36.6 C Temperature Source Temporal Artery Scan Pulse Rate 71 Pulse Rate [Apical] 61 60 Respiratory Rate 16 18 16 Respiratory Effort / Characteristics Non-Labored Respiratory Depth Normal Blood Pressure 110/70 Blood Pressure [Left Arm] 140/76 130/77 Blood Pressure Mean 83 Blood Pressure Mean [Left Arm] 97 94 Pulse Oximetry 95 96 97 Oxygen Delivery Method Room Air Room Air Room Air Sepsis Recent Fever Within 48 Hours No Sepsis New/Unexplained Change in Mental Status No Sepsis Action Taken by Nursing No Action Required 05/09/21 20:50 Temperature Temperature Source Pulse Rate Pulse Rate [Apical] 61 Respiratory Rate 18 Respiratory Effort / Characteristics Respiratory Depth Blood Pressure Blood Pressure [Left Arm] 153/79 H Blood Pressure Mean Blood Pressure Mean [Left Arm] 103 Pulse Oximetry 99 Oxygen Delivery Method Room Air Sepsis Recent Fever Within 48 Hours Sepsis New/Unexplained Change in Mental Status Sepsis Action Taken by Nursing Laboratory Data Result diagrams: 05/09/21 17:43 05/09/21 17:43 Lab Results 05/09/21 05/09/21 05/09/21 Range/Units 17:43 17:43 19:05 WBC 4.61 L (4.8-10.8) K/uL RBC 3.09 L (4.7-6.1) M/uL Hgb 8.9 L (14.0-18.0) g/dL Hct 28.8 L (42-52) % MCV 93.2 (80-100) fL MCH 28.8 (25-34) pg MCHC 30.9 L (32-36) g/dL RDW Std Deviation 53.3 H (36.4-46.3) fL RDW Coeff of Suzy 15.8 H (11.5-14.5) % Plt Count 245 (130-400) K/uL MPV 10.5 H (7.4-10.4) fL Immature Gran % (Auto) 0.7 % Neut % (Auto) 67.0 % Lymph % (Auto) 20.8 % Gillespie % (Auto) 10.6 % Eos % (Auto) 0.7 % Baso % (Auto) 0.2 % Neut # (Auto) 3.09 (1.4-6.5) K/uL Lymph # (Auto) 0.96 L (1.2-3.4) K/uL Gillespie # (Auto) 0.49 (0.11-0.59) K/uL Eos # (Auto) 0.03 (0-0.5) K/uL Baso # (Auto) 0.01 (0-0.2) K/uL Immature Gran # (Auto) 0.03 H (0.00-0.02) K/uL PT (9.0-12.0) Seconds INR (0.9-1.1) Sodium 137 (136-145) mmol/L Potassium 3.6 (3.5-5.1) mmol/L Chloride 103 (98-107) mmol/L Carbon Dioxide 27 (21-32) mmol/L Anion Gap 7.0 (3-11) BUN 14 (7-18) mg/dl Creatinine 0.95 (0.6-1.4) mg/dl Est Cr Clr Drug Dosing 97.1 ml/min Est GFR ( Amer) 95.6 ml/min Est GFR (Non-Af Amer) 82.5 ml/min BUN/Creatinine Ratio 15.0 (10-20) Glucose 114 H (70-99) mg/dl Calcium 9.0 (8.5-10.1) mg/dl Total Bilirubin 0.4 (0.2-1) mg/dl AST 24 (15-37) U/L ALT 24 (12-78) U/L Alkaline Phosphatase 45 (45-117) U/L Total Protein 7.4 (6.4-8.2) gm/dl Albumin 2.6 L (3.4-5.0) gm/dl Globulin 4.8 H (2.5-4.0) gm/dl Albumin/Globulin Ratio 0.5 L (0.9-2) Lipase 195 (73-393) U/L Urine Color Yellow Urine Appearance Clear (Clear) Urine pH 6.5 (4.5-7.5) Ur Specific Capulin 1.019 (1.000-1.030) Urine Protein Trace H (Negative) Urine Glucose (UA) Negative (Negative) Urine Ketones Negative (Negative) Urine Blood 1+ H (Negative) Urine Nitrite Negative (Negative) Urine Bilirubin Negative (Negative) Urine Urobilinogen Negative (Negative) Ur Leukocyte Esterase Trace H (Negative) Urine WBC (Auto) 5-10 H (0-5) /hpf Urine RBC (Auto) 10-30 H (0-4) /hpf U Hyaline Cast (Auto) 1-5 (0-5) /lpf U Epithel Cells (Auto) 10-20 H (0-5) /lpf Urine Bacteria (Auto) Negative (Negative) 05/09/21 Range/Units 19:41 WBC (4.8-10.8) K/uL RBC (4.7-6.1) M/uL Hgb (14.0-18.0) g/dL Hct (42-52) % MCV (80-100) fL MCH (25-34) pg MCHC (32-36) g/dL RDW Std Deviation (36.4-46.3) fL RDW Coeff of Suzy (11.5-14.5) % Plt Count (130-400) K/uL MPV (7.4-10.4) fL Immature Gran % (Auto) % Neut % (Auto) % Lymph % (Auto) % Gillespie % (Auto) % Eos % (Auto) % Baso % (Auto) % Neut # (Auto) (1.4-6.5) K/uL Lymph # (Auto) (1.2-3.4) K/uL Gillespie # (Auto) (0.11-0.59) K/uL Eos # (Auto) (0-0.5) K/uL Baso # (Auto) (0-0.2) K/uL Immature Gran # (Auto) (0.00-0.02) K/uL PT 14.4 H (9.0-12.0) Seconds INR 1.5 H (0.9-1.1) Sodium (136-145) mmol/L Potassium (3.5-5.1) mmol/L Chloride (98-107) mmol/L Carbon Dioxide (21-32) mmol/L Anion Gap (3-11) BUN (7-18) mg/dl Creatinine (0.6-1.4) mg/dl Est Cr Clr Drug Dosing ml/min Est GFR ( Amer) ml/min Est GFR (Non-Af Amer) ml/min BUN/Creatinine Ratio (10-20) Glucose (70-99) mg/dl Calcium (8.5-10.1) mg/dl Total Bilirubin (0.2-1) mg/dl AST (15-37) U/L ALT (12-78) U/L Alkaline Phosphatase (45-117) U/L Total Protein (6.4-8.2) gm/dl Albumin (3.4-5.0) gm/dl Globulin (2.5-4.0) gm/dl Albumin/Globulin Ratio (0.9-2) Lipase (73-393) U/L Urine Color Urine Appearance (Clear) Urine pH (4.5-7.5) Ur Specific Capulin (1.000-1.030) Urine Protein (Negative) Urine Glucose (UA) (Negative) Urine Ketones (Negative) Urine Blood (Negative) Urine Nitrite (Negative) Urine Bilirubin (Negative) Urine Urobilinogen (Negative) Ur Leukocyte Esterase (Negative) Urine WBC (Auto) (0-5) /hpf Urine RBC (Auto) (0-4) /hpf U Hyaline Cast (Auto) (0-5) /lpf U Epithel Cells (Auto) (0-5) /lpf Urine Bacteria (Auto) (Negative) Administered Medications Discontinued Medications Enoxaparin Sodium (Enoxaparin 150 Mg/Ml Syr) 150 mg SQ NOW ONE Stop: 05/09/21 20:24 Last Admin: 05/09/21 20:51 Dose: 150 mg Documented by: [id number] Caspofungin 50 mg/ Sodium (Chloride) 260 mls @ 250 mls/hr IV NOW STA Stop: 05/09/21 18:21 Last Infusion: 05/09/21 19:05 Dose: 0 mls/hr Documented by: [id number] Admin: 05/09/21 18:05 Dose: 250 mls/hr Documented by: [id number] Imaging Data Radiologist's Impression: Chest X-Ray 05/09/21 18:23 XR chest 1V portable INDICATION: Atypical chest pain. TECHNIQUE: Single frontal radiograph of the chest was obtained. Comparison: Comparison is made to chest one view 04/27/2021 FINDINGS: Stable median sternotomy wires and dual lead pacemaker. Cardiomegaly is noted. Atelectasis is seen at the left lung base. No evidence of pleural effusion or pneumothorax. IMPRESSION: Left basilar atelectasis without acute abnormality. Stable cardiomegaly. ACT 112: Negative or not required by law. Electronically signed by: Chaim Iglesias M.D. 05/09/2021 7:05 PM Discharge Plan Visit Data Chief Complaint: Abnormal Labs/Diagnostic Testing Stated Complaint: NEEDS IV ANTIBIOTIC, SENT BY [facility] ED Provider: Saeed Bell Discharge Problem: Fungemia, COVID-19, Subtherapeutic international normalized ratio (INR) Forms Stand Alone Forms: My [facility] [employer] Prescriptions Prescriptions: No Action Carnivora 250 mcg PO BID RF: 0 coenzyme Q10 [Co Q-10] 200 mg capsule 200 mg PO DAILY RF: 0 Nattokinase Plus 1 tab PO DAILY RF: 0 ascorbic acid (vitamin C) 500 mg capsule 500 mg PO BID RF: 0 meclizine 25 mg tablet 25 mg PO TID PRN (Reason: dizziness) Qty: 30 RF: 2 atorvastatin 40 mg tablet 40 mg PO HS Qty: 90 RF: 1 indomethacin 25 mg capsule 50 mg PO BID PRN (Reason: GOUT) RF: 0 hydrochlorothiazide 25 mg tablet 25 mg PO QAM RF: 0 warfarin 5 mg tablet 5 - 10 mg PO UD RF: 0 leuprolide 7.5 mg injectable 7.5 mg IM . EVERY 3 MONTHS RF: 0 aspirin 81 mg Tablet,Delayed Release (Dr/Ec) 81 mg PO QAM RF: 0 metoprolol succinate 25 mg Tablet Extended Release 24 Hr 25 mg PO QAM RF: 0 tamsulosin 0.4 mg capsule 0.4 mg PO HS RF: 0 acetaminophen [Tylenol Extra Strength] 500 mg Tablet 500 mg PO Q6H PRN (Reason: Pain) RF: 0 caspofungin 50 mg recon soln 50 mg IV DAILY 10 Days Qty: 10 RF: 1 Janumet XR 50-1,000 mg tablet, ER multiphase 24 hr 1 tab PO BID RF: 0 phenazopyridine [Pyridium] 200 mg Tablet 200 mg PO TID PRN (Reason: painful urination) Qty: 14 RF: 0 Referrals Referrals: Mary Flood CRNP [Primary Care Provider] -
[2021-05-09 18:02] LABS: Basophils # (auto) 0.01 K/uL (0-0.2); Basophils % (auto) 0.2 %; Eosinophils # (auto) 0.03 K/uL (0-0.5); Eosinophils % (auto) 0.7 %; Hematocrit (blood only) 28.8 % (42-52); Hemoglobin 8.9 g/dL (14.0-18.0); Immature Granulocytes # (auto) 0.03 K/uL (0.00-0.02); Immature Granulocytes % (auto) 0.7 %; Lymphocytes # (auto) 0.96 K/uL (1.2-3.4); Lymphocytes % (auto) 20.8 %; Mean Corpuscular Hemoglobin 28.8 pg (25-34); Mean Corpuscular Hgb Conc 30.9 g/dL (32-36); Mean Corpuscular Volume 93.2 fL (80-100); Mean Platelet Volume 10.5 fL (7.4-10.4); Monocytes # (auto) 0.49 K/uL (0.11-0.59); Monocytes % (auto) 10.6 %; Neutrophils # (auto) 3.09 K/uL (1.4-6.5); Platelet Count 245 K/uL (130-400); RDW Coefficient of Variation 15.8 % (11.5-14.5); RDW Standard Deviation 53.3 fL (36.4-46.3); Red Blood Count 3.09 M/uL (4.7-6.1); White Blood Count 4.61 K/uL (4.8-10.8)
[2021-05-09 18:20] LABS: Albumin Level 2.6 gm/dl (3.4-5.0); Creatinine Clr Calc Pharmacy 97.1 ml/min; Est GFR (African American) 95.6 ml/min; Est GFR (Non-African American) 82.5 ml/min; Potassium 3.6 mmol/L (3.5-5.1)
[2021-05-09 18:23] LABS: Albumin Globulin Ratio 0.5 (0.9-2); Bilirubin,Total 0.4 mg/dl (0.2-1); Globulin 4.8 gm/dl (2.5-4.0); Total Protein 7.4 gm/dl (6.4-8.2)
--- NOTE | 2021-05-09 19:07 | XRay Report ---
XR chest 1V portable INDICATION: Atypical chest pain. TECHNIQUE: Single frontal radiograph of the chest was obtained. Comparison: Comparison is made to chest one view 04/27/2021 FINDINGS: Stable median sternotomy wires and dual lead pacemaker. Cardiomegaly is noted. Atelectasis is seen at the left lung base. No evidence of pleural effusion or pneumothorax. IMPRESSION: Left basilar atelectasis without acute abnormality. Stable cardiomegaly. ACT 112: Negative or not required by law. Electronically signed by: Chaim Iglesias M.D. 05/09/2021 7:05 PM
[2021-05-09 19:19] LABS: Appearance Urine Clear (Clear); Bacteria Urine Automated Negative (Negative); Bilirubin Urine Negative (Negative); Blood Urine 1+ (Negative); Color Urine Yellow; Glucose Urine UA Negative (Negative); Ketones Urine Negative (Negative); Leukocyte Esterase Urine Trace (Negative); Nitrite Urine Negative (Negative); Protein Urine Trace (Negative); Specific Gravity Urine 1.019 (1.000-1.030); Urobilinogen Urine Negative (Negative); pH Urine 6.5 (4.5-7.5)
[2021-05-09 20:17] LABS: INR 1.5 (0.9-1.1); Prothrombin Time 14.4 Seconds (9.0-12.0)
[2021-05-09] MEDS ORDERED: ENOXAPARIN 150 MG/ML SYR SQ ONE (20:23)
--- NOTE | 2021-05-09 22:15 | History & Physical Report ---
Date of Service May 09, 2021 Assessment & Plan (1) Fungemia: Plan: 65yo male with known candidemia which was being treated with daily outpatient infusions until patient recently diagnosed with Covid-19. He is unable to receive [facility] infusions at this time due to Covid-19 status. Patient is presently afebrile, HD stable, NAD. Immunocompetent. He is leukopenic with WBC of 4.61 with normal neutrophil counts. Blood cultures 2/2 from 04/27/21 positive for rubia albicans/dubliniensis. No further speciation. No sensitivities reported. Blood cultures 2/2 from 05/01/21 are NGTD - finalized Patient is to receive 14 days of antifungal therapy from sterile blood - today should be day 7/14 with last date of antifungal therapy tentatively 05/15/21. Per discharge summary from 05/04/21 - patient is to continue antifungal treatment for at least 7 days past stent removal. Patient contacted Urology today re: removal of stent and decision made to postpone stent removal until Covid is resolved. This may extend the end date of his treatment. Unfortunately he is unable to receive his infusions outpatient due to Covid positivity. He may be able to transition to PO Fluconazole to complete his course (has been on IV Caspofungin x 7 days, is immunocompetent, not neutropenic and non-toxic in appearance). Would want to see sensitivity data prior to changing to oral fluconazole - patient has multiple prosthetic joints to include hips, knees as well as cardiac pacemaker. Spoke with lab this evening, they are unsure if this is a send out lab. Patient lives at home alone and is apprehensive about administering his Caspofungin at home. However, if this is the only option he is willing to learn. -Admit to medical -ID consultation appreciated -Continue Caspofungin 50mg IV daily for now -Will discuss with lab in AM re: sending sensitivity data on prior blood cultures (2) COVID-19: Plan: Patient is unvaccinated. Was exposed to family members who are Covid-19 positive as well. He presently denies chest pain, new or worsening cough, SOB. No hypoxia at this time. Breathing comfortably on room air with adequate saturations. He is roughly on day 5 of illness -Continue to monitor O2 levels -No indication for steroid treatment at this time -Maintain isolation precautions -Anticoagulation for AF as below -Tylenol as needed for pain or fever (3) Subtherapeutic international normalized ratio (INR): Plan: Patient has been on Coumadin for PAF. INR subtherapeutic at 1.5 currently -Continue Lovenox 1mg/kg BID -Continue Coumadin as ordered -Monitor daily INR (4) Atrial fibrillation: Plan: Chronic. Rate controlled -Continue Lovenox bridging with Coumadin as above. -Montior INR -Continue Metoprolol 25mg po qAM (5) Hypertension: Plan: Blood pressure mildly elevated at 153/79 -Continue HCTZ 25mg daily -Continue Metoprolol -Continue to monitor (6) Dyslipidemia: Plan: Chronic -Continue Atorvastatin (7) CAD (coronary artery disease): Plan: Patient with CAD s/p CAGB x 3V. Presently without chest pain -Continue ASA 81mg po daily -Continue Atorvastatin 40mg po qHS -Continue Metoprolol (8) Diabetes mellitus: Plan: Blood sugar presently 114 -Hold Janumet -ISS -Continue to monitor (9) Left ureteral calculus: Plan: Patient s/p stent placement. He is to continue antifungal treatment x 7 days post stent-removal -Continue Pyridium History of Present Illness Chief Complaint: Covid-19 infection Primary Care Provider: LAURA Prabhakar Renzo Fitzgerald is a 65yo male with history of CAD, DM, PAF presently on Coumadin. Patient presented to [facility] on 04/22/21 with complaint of chills and rigors following a ureteral stent placement 1 week prior. Patient found to have candidemia with 2/2 blood cultures from 04/27/21 positive for rubia albicans. He was treated with IV Caspofungin and discharged home with instruction to complete his IV Caspofungin with daily infusions at the [facility]. Patient was receiving his infusions at the [facility] without difficulty. Unfortunately, 4 days ago he developed fever and body aches. He tested positive for Covid-19 yesterday. He is now unable to receive his infusions at the [facility] due to his Covid positive status. Patient missed one dose of Caspofungin two days ago otherwise has received all infusions. He lives at home alone. Has two sons in the area that are also positive for Covid-19 and are quite symptomatic. No additional complaints at this time. No fever, cough, SOB, loss of taste or smell. He had some diarrhea several days ago which has since resolved. ER Course: Lovenox 150mg, Caspofungin 50mg IV Allergies Allergy/AdvReac Type Severity Reaction Status Date / Time No Known Allergies Allergy Verified 05/09/21 21:07 Home Medications Medication Instructions Recorded Confirmed Type aspirin 81 mg tablet,delayed 81 mg PO QAM 06/26/18 05/09/21 History release metoprolol succinate 25 mg 25 mg PO QAM 06/26/18 05/09/21 History tablet,extended release 24 hr hydrochlorothiazide 25 mg tablet 25 mg PO QAM 06/23/19 05/09/21 History meclizine 25 mg tablet 25 mg PO TID PRN #30 tab 06/24/19 05/09/21 Rx Carnivora 250 mcg PO BID 01/26/20 05/09/21 History Nattokinase Plus 1 tab PO DAILY 01/26/20 05/09/21 History coenzyme Q10 200 mg capsule (Co 200 mg PO DAILY 01/26/20 05/09/21 History Q-10) warfarin 5 mg tablet 5 - 10 mg PO UD tab 02/23/20 05/09/21 History indomethacin 25 mg capsule 50 mg PO BID PRN 04/08/20 05/09/21 History leuprolide 7.5 mg intramuscular 7.5 mg IM . EVERY 3 MONTHS 10/04/20 05/09/21 History atorvastatin 40 mg tablet 40 mg PO HS #90 tab 10/10/20 05/09/21 Rx ascorbic acid (vitamin C) 500 mg 500 mg PO BID cap 01/09/21 05/09/21 History capsule sitagliptin 50 mg-metformin ER 1 tab PO BID 04/09/21 05/09/21 History 1,000 mg tablet,extended release 24h mp (Janumet XR) phenazopyridine 200 mg tablet 200 mg PO TID PRN #14 tab 04/11/21 05/09/21 Rx (Pyridium) tamsulosin 0.4 mg capsule 0.4 mg PO HS 04/20/21 05/09/21 History acetaminophen 500 mg tablet 500 mg PO Q6H PRN 04/21/21 05/09/21 History (Tylenol Extra Strength) caspofungin 50 mg intravenous 50 mg IV DAILY 10 Days #10 ea 05/04/21 05/09/21 Rx solution Past Med/Surg History Medical History CAD S/P percutaneous coronary angioplasty Close exposure to 2019 novel coronavirus Diabetic peripheral neuropathy associated with type 2 diabetes mellitus Diverticulosis of colon Gout Hydronephrosis of left kidney Intracanalicular fibroadenoma Kidney stone on left side Loss of protective sensation of skin of foot wears a special boot Obesity ALISSA (obstructive sleep apnea) no device Paroxysmal atrial fibrillation Pneumonia Pre-ulcerative corn or callous Prostate cancer (10/14/15) radiation and seed and now on lupron Sciatica Surgical wound present right foot and no longer has infection and follows with wound clinic 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 Claude Licea retrograde pyelogram with stent placement Status post laser lithotripsy of ureteral calculus 02/2019. LMA #5. No issues. Status post right foot surgery Family History Unknown Prostate cancer self Father Diabetes Myocardial infarction Denies family history of Ovarian cancer Breast cancer Colorectal cancer Social History Smoking Status: Never smoker Second Hand Exposure: No; Hx Alcohol Use: Yes Alcohol type: beer Alcohol Intake Frequency: Monthly or Less Hx Substance Use: No Preferred Language: French Communication Ability: Effective Visual Impairment: Limited Hearing Ability: Normal Automatic Vulcanizing Operator Required: No Beliefs That Will Affect Care: None marital status: / Current Living Situation: Alone current occupational status: retired How many Children do You have: 2 How many Children do You have Comment: local and able to assist as needed Feels Safe at Home: Yes Childhood Exposure to Second-Hand Smoke: No caffeine: Yes Dental Care, Regularly: Yes Physical Activity Frequency: Does not Exercise Seatbelt Use: sometimes Sunscreen Use: No Assistive Devices: Glasses Review of Systems Review of Systems: All systems reviewed & are unremarkable except as noted in HPI & below Denies chest pain, cough, SOB, abdominal pain, nausea, vomiting, diarrhea Denies joint pain or swelling Physical Exam Physical Exam: General: patient resting comfortably, NAD, non-toxic in appearance, AA&O x 4 Skin: warm, dry, intact, no rashes or lesions HEENT: NC/AT, PERRL, EOMI, anicteric sclera, conjunctiva without injection, external ear normal to inspection and nontender, nares patent, moist mucus membranes, dentition intact, no oropharyngeal lesions, neck supple, trachea midline, no LAD, no thyromegaly, no JVD Heart: +S1/S2, regular, no m/r/g Lungs: equal air entry bilaterally, no rales/rhonchi/wheezes Abd: +BS, soft, NT/ND, no masses/organomegaly/ascites Ext: warm, 2+ pulses in UE/LE bilaterally, no clubbing/cyanosis or edema Neuro: nonfocal, patient AA&O x 4, speech intact, no facial droop, moving all extremities on command with equal strength 5/5 Results & Data Results & Data ([facility]) Vital Signs (Past 12 Hours) Vital Signs Temp Pulse Pulse Resp BP BP Pulse Ox 05/09/21 21:35 61 18 154/76 H 96 05/09/21 20:50 61 18 153/79 H 99 05/09/21 19:30 60 16 130/77 97 05/09/21 19:05 61 18 140/76 96 05/09/21 16:19 36.6 C 71 16 110/70 95 Laboratory Results Laboratory Results WBC 4.61 K/uL (4.8-10.8) L 05/09/21 17:43 RBC 3.09 M/uL (4.7-6.1) L 05/09/21 17:43 Hgb 8.9 g/dL (14.0-18.0) L 05/09/21 17:43 Hct 28.8 % (42-52) L 05/09/21 17:43 MCV 93.2 fL (80-100) 05/09/21 17:43 MCH 28.8 pg (25-34) 05/09/21 17:43 MCHC 30.9 g/dL (32-36) L 05/09/21 17:43 RDW Std Deviation 53.3 fL (36.4-46.3) H 05/09/21 17:43 RDW Coeff of Suzy 15.8 % (11.5-14.5) H 05/09/21 17:43 Plt Count 245 K/uL (130-400) 05/09/21 17:43 MPV 10.5 fL (7.4-10.4) H 05/09/21 17:43 Immature Gran % (Auto) 0.7 % 05/09/21 17:43 Neut % (Auto) 67.0 % 05/09/21 17:43 Lymph % (Auto) 20.8 % 05/09/21 17:43 [place] % (Auto) 10.6 % 05/09/21 17:43 Eos % (Auto) 0.7 % 05/09/21 17:43 Baso % (Auto) 0.2 % 05/09/21 17:43 Neut # (Auto) 3.09 K/uL (1.4-6.5) 05/09/21 17:43 Lymph # (Auto) 0.96 K/uL (1.2-3.4) L 05/09/21 17:43 [place] # (Auto) 0.49 K/uL (0.11-0.59) 05/09/21 17:43 Eos # (Auto) 0.03 K/uL (0-0.5) 05/09/21 17:43 Baso # (Auto) 0.01 K/uL (0-0.2) 05/09/21 17:43 Immature Gran # (Auto) 0.03 K/uL (0.00-0.02) H 05/09/21 17:43 PT 14.4 Seconds (9.0-12.0) H 05/09/21 19:41 INR 1.5 (0.9-1.1) H 05/09/21 19:41 Sodium 137 mmol/L (136-145) 05/09/21 17:43 Potassium 3.6 mmol/L (3.5-5.1) 05/09/21 17:43 Chloride 103 mmol/L (98-107) 05/09/21 17:43 Carbon Dioxide 27 mmol/L (21-32) 05/09/21 17:43 Anion Gap 7.0 (3-11) 05/09/21 17:43 BUN 14 mg/dl (7-18) 05/09/21 17:43 Creatinine 0.95 mg/dl (0.6-1.4) 05/09/21 17:43 Est Cr Clr Drug Dosing 97.1 ml/min 05/09/21 17:43 Est GFR ( Amer) 95.6 ml/min 05/09/21 17:43 Est GFR (Non-Af Amer) 82.5 ml/min 05/09/21 17:43 BUN/Creatinine Ratio 15.0 (10-20) 05/09/21 17:43 Glucose 114 mg/dl (70-99) H 05/09/21 17:43 Calcium 9.0 mg/dl (8.5-10.1) 05/09/21 17:43 Total Bilirubin 0.4 mg/dl (0.2-1) 05/09/21 17:43 AST 24 U/L (15-37) 05/09/21 17:43 ALT 24 U/L (12-78) 05/09/21 17:43 Alkaline Phosphatase 45 U/L (45-117) 05/09/21 17:43 Total Protein 7.4 gm/dl (6.4-8.2) 05/09/21 17:43 Albumin 2.6 gm/dl (3.4-5.0) L 05/09/21 17:43 Globulin 4.8 gm/dl (2.5-4.0) H 05/09/21 17:43 Albumin/Globulin Ratio 0.5 (0.9-2) L 05/09/21 17:43 Lipase 195 U/L (73-393) 05/09/21 17:43 Urine Color Yellow 05/09/21 19:05 Urine Appearance Clear (Clear) 05/09/21 19:05 Urine pH 6.5 (4.5-7.5) 05/09/21 19:05 Ur Specific [place] 1.019 (1.000-1.030) 05/09/21 19:05 Urine Protein Trace (Negative) H 05/09/21 19:05 Urine Glucose (UA) Negative (Negative) 05/09/21 19:05 Urine Ketones Negative (Negative) 05/09/21 19:05 Urine Blood 1+ (Negative) H 05/09/21 19:05 Urine Nitrite Negative (Negative) 05/09/21 19:05 Urine Bilirubin Negative (Negative) 05/09/21 19:05 Urine Urobilinogen Negative (Negative) 05/09/21 19:05 Ur Leukocyte Esterase Trace (Negative) H 05/09/21 19:05 Urine WBC (Auto) 5-10 /hpf (0-5) H 05/09/21 19:05 Urine RBC (Auto) 10-30 /hpf (0-4) H 05/09/21 19:05 U Hyaline Cast (Auto) 1-5 /lpf (0-5) 05/09/21 19:05 U Epithel Cells (Auto) 10-20 /lpf (0-5) H 05/09/21 19:05 Urine Bacteria (Auto) Negative (Negative) 05/09/21 19:05 Impressions Chest X-Ray 05/09/21 18:23 XR chest 1V portable INDICATION: Atypical chest pain. TECHNIQUE: Single frontal radiograph of the chest was obtained. Comparison: Comparison is made to chest one view 04/27/2021 FINDINGS: Stable median sternotomy wires and dual lead pacemaker. Cardiomegaly is noted. Atelectasis is seen at the left lung base. No evidence of pleural effusion or pneumothorax. IMPRESSION: Left basilar atelectasis without acute abnormality. Stable cardiomegaly. ACT 112: Negative or not required by law. Electronically signed by: Chaim Iglesias M.D. 05/09/2021 7:05 PM Code Status & VTE Plan VTE Prophylaxis Plan VTE Prophylaxis will be ordered: Yes PG Care Time/CCT Total # of Minutes Spent Total Time Spent with Patient: Total time spent is greater than 50% in coordination of care (as documented) at patient's floor/unit and/or counseling patient: Coding Level of Care Code INT OBSERVATION CARE 70M LVL 3 Diagnoses Fungemia B49 COVID-19 U07.1 Subtherapeutic international normalized ratio (INR) R79.1 Atrial fibrillation I48.91 Hypertension I10 Hypertension type: essential hypertension Dyslipidemia E78.5 CAD (coronary artery disease) I25.10 Diabetes mellitus E11.9 Left ureteral calculus N20.1 (1) Hypertension Hypertension type: essential hypertension Qualified Code(s): I10 - Essential (primary) hypertension
[2021-05-09] MEDS ORDERED: GLUCOSE 40% GEL 15 GM TUBE PO PRN (23:45)
[2021-05-09] MEDS ORDERED: GLUCOSE 10 TABS/TUBE PO PRN (23:45)
[2021-05-09] MEDS ORDERED: GLUCAGON FOR INJ 1 MG VIAL SQ PRN (23:45)
[2021-05-09] MEDS ORDERED: PHENAZOPYRIDINE HCL 200 MG TAB PO PRN (23:45)
[2021-05-09] MEDS ORDERED: ONDANSETRON INJ 2 MG/ML 2 ML VIAL IV PRN (23:45)
[2021-05-09] MEDS ORDERED: DEXTROSE 50% 50 ML SYRINGE IV PRN (23:45)
[2021-05-09] MEDS ORDERED: CARBOHYDRATES FOR HYPOGLYCEMIA PO PRN (23:45)
[2021-05-10] MEDS ORDERED: MECLIZINE HCL 25 MG TAB PO PRN (00:09)
[2021-05-10] MEDS: ENOXAPARIN INJ 120 MG/0.8 ML SYR SQ SCH ×2 (01:04→08:18)
[2021-05-10] MEDS: ACETAMINOPHEN 500 MG TAB PO PRN ×2 (01:07→22:26)
[2021-05-10 08:02] LABS: Basophils # (auto) 0.01 K/uL (0-0.2); Basophils % (auto) 0.3 %; Eosinophils # (auto) 0.02 K/uL (0-0.5); Eosinophils % (auto) 0.5 %; Hematocrit (blood only) 28.8 % (42-52); Hemoglobin 9.2 g/dL (14.0-18.0); Immature Granulocytes # (auto) 0.02 K/uL (0.00-0.02); Immature Granulocytes % (auto) 0.5 %; Lymphocytes # (auto) 1.13 K/uL (1.2-3.4); Lymphocytes % (auto) 29.9 %; Mean Corpuscular Hemoglobin 29.6 pg (25-34); Mean Corpuscular Hgb Conc 31.9 g/dL (32-36); Mean Corpuscular Volume 92.6 fL (80-100); Mean Platelet Volume 10.6 fL (7.4-10.4); Monocytes # (auto) 0.34 K/uL (0.11-0.59); Neutrophils # (auto) 2.26 K/uL (1.4-6.5); Neutrophils % (auto) 59.8 %; Platelet Count 241 K/uL (130-400); RDW Coefficient of Variation 16.1 % (11.5-14.5); Red Blood Count 3.11 M/uL (4.7-6.1); White Blood Count 3.78 K/uL (4.8-10.8)
[2021-05-10 08:13] LABS: INR 1.4 (0.9-1.1); Prothrombin Time 14.1 Seconds (9.0-12.0)
[2021-05-10] MEDS: hydroCHLOROthiazide 25 MG TAB PO SCH (08:16)
[2021-05-10] MEDS: ASPIRIN 81 MG ECTAB PO SCH (08:16)
[2021-05-10] MEDS: METOPROLOL SUCC 25MG EXT REL TAB PO SCH (08:16)
[2021-05-10 08:32] LABS: BUN Creatinine Ratio 14.3 (10-20); Calcium 8.4 mg/dl (8.5-10.1); Creatinine Clr Calc Pharmacy 105.8 ml/min; Est GFR (African American) 103.5 ml/min; Est GFR (Non-African American) 89.3 ml/min; Potassium 3.6 mmol/L (3.5-5.1)
[2021-05-10] MEDS ORDERED: CASPOFUNGIN 50 MG IV SCH (09:00)
[2021-05-10] MEDS: INSULIN ASPART 100 UNITS/ML 3 ML PEN SC SCH ×4 (09:36→20:27)
[2021-05-10] MEDS: Heparin IV Adult Wt-Based Standard *NO* Bolus Protocol IV SCH ×7 (12:45→15:43)
[2021-05-10 15:28] LABS: Partial Thromboplastin Ratio 1.3; Partial Thromboplastin Time 33.8 Seconds (21.0-31.0)
[2021-05-10] MEDS: HEPARIN SODIUM/DEXTROSE 25,000 UNITS/500 ML BAG IV SCH (15:33)
[2021-05-10] MEDS: WARFARIN SOD 10 MG TAB PO SCH (18:03)
[2021-05-10] MEDS: CASPOFUNGIN 50 MG in SODIUM CHLORIDE 0.9% 250 ML IV SCH (20:21)
[2021-05-10] MEDS: ATORVASTATIN 40 MG TAB PO SCH (20:21)
[2021-05-10] MEDS: TAMSULOSIN HCL 0.4 MG CAP PO SCH (20:21)
[2021-05-10 21:42] LABS: Partial Thromboplastin Ratio 1.4; Partial Thromboplastin Time 37.2 Seconds (21.0-31.0)
--- NOTE | 2021-05-10 21:42 | Hospitalist Progress Note ---
Date of Service May 10, 2021 Assessment & Plan (1) Fungemia: Plan: Blood cultures 2/2 from 04/27/21 positive for rubia albicans/dubliniensis. No further speciation. No sensitivities reported. Blood cultures 2/2 from 05/01/21 are negative. Had been receiving once daily caspofungin with last date of antifungal therapy tentatively 05/15/21. Due to COVID + status he can no longer receive the IV caspofungin at the hospital's [facility]. [facility] consult completed today. I spoke with Dr Duarte, Mann [facility]FFRI[facility], by phone late this evening. He feels that patient can be changed to diflucan 400mg once daily and remain on such until his L ureteral stent is removed and probably 1 week beyond that procedure. C albicans is universally fluconazole sensitive. Patient likely to be pleased w/ this recommendation. Will update patient tomorrow. Finally - Dr Duarte advises echo, EKG (check qtc), and ophtho consult for full eye exam once out of isolation from COVID. (2) COVID-19: Plan: Patient unvaccinated. Was exposed to family members who are Covid-19 positive when he was discharged home on 05/04. Can't rule out that he could have been exposed to COVID during previous hospitalization. He has chronic cough - no change. No dyspnea. O2 sats are low-normal at about 92%. CXR yesterday was negative for infiltrates, however. He is about 6 days into his COVID illness - respiratory status could worsen in the next few days. Continue to monitor. (3) Subtherapeutic international normalized ratio (INR): Plan: Chronic Coumadin for a.fib.. INR again subtherapeutic at 1.4 today. He is refusing lovenox 1mg/kg BID. Given his COVID, recent prolonged hospital stay and surgeries, etc -- he is at high risk of VTE and atrial clot. He is willing to bridge with heparin drip - standard dosing ordered. Cont coumadin. Daily INR. (4) Atrial fibrillation: Plan: Permanent. Cont metoprolol xl. Cont coumadin - see #3. (5) Hypertension: Plan: Continue HCTZ 25mg daily Continue Metoprolol (6) Dyslipidemia: Plan: Continue Atorvastatin (7) CAD (coronary artery disease): Plan: Patient with CAD s/p CAGB in the past. no recent ischemic symptoms. Continue ASA 81mg po daily Continue Atorvastatin 40mg po qHS Continue Metoprolol (8) Diabetes mellitus: Plan: acceptable readings novolog SSI (9) Left ureteral calculus: Plan: Patient s/p stent placement. He will continue antifungal treatment x 7 days post stent-removal. Timing of L stent removal uncertain because of COVID positivity. Plan: DVT proph - heparin drip; coumadin son updated by phone today care d/w [facility] ID home tomorrow if COVID is stable?? Admission and Anticipated Discharge Date Admission Date: May 09, 2021 Subjective pt states his COVID symptoms started Saturday into Saturday from this past weekend had fevers/chills has known chronic cough - no change thus far in that cough denies dyspnea reports his 2 sons have COVID at this time he rode home from the hospital with 1 of his sons at prior hospital d/c on 05/04/21 appetite fair he has fatigue he is still reluctant to self-administer IV antifungals via PICC at his home he does not like needles, etc he would prefer oral therapy per staff he is refusing lovenox injections Review of Systems Review of Systems: gen - fatigue; no fever thus far here CV - no chest pain pulm - no dyspnea at rest or w/ activity GI - no N/V/diarrhea - urinary frequency but voiding ok otherwise Physical Exam Physical Exam: Gen: NAD, sitting in chair, mild occasional dry cough Mouth: MMM Neck: no JVD Heart: irregular, s1 s2 Lungs: scant rales bases, no wheeze Abd: soft, NT, ND, BS+, no flank tenderness Ext: no edema, pulses 2+ b/l Skin: PICC LUE c/d/i psych: a/o x 3 Results & Data Results & Data ([facility]) Vital Signs (Past 12 Hours) Vital Signs Temp Pulse Resp BP Pulse Ox 05/10/21 15:21 37.1 C 61 16 118/58 L 92 Laboratory Results Laboratory Results - last 24 hr 05/10/21 05/10/21 05/10/21 07:20 07:22 07:22 WBC 3.78 L RBC 3.11 L Hgb 9.2 L Hct 28.8 L MCV 92.6 MCH 29.6 MCHC 31.9 L RDW Std Deviation 54.0 H RDW Coeff of Suzy 16.1 H Plt Count 241 MPV 10.6 H Immature Gran % (Auto) 0.5 Neut % (Auto) 59.8 Lymph % (Auto) 29.9 [place] % (Auto) 9.0 Eos % (Auto) 0.5 Baso % (Auto) 0.3 Neut # (Auto) 2.26 Lymph # (Auto) 1.13 L [place] # (Auto) 0.34 Eos # (Auto) 0.02 Baso # (Auto) 0.01 Immature Gran # (Auto) 0.02 PT 14.1 H INR 1.4 H APTT PTT Ratio Sodium 139 Potassium 3.6 Chloride 103 Carbon Dioxide 29 Anion Gap 7.0 BUN 12 Creatinine 0.87 Est Cr Clr Drug Dosing 105.8 Est GFR ( Amer) 103.5 Est GFR (Non-Af Amer) 89.3 BUN/Creatinine Ratio 14.3 Glucose 99 POC Glucose Calcium 8.4 L 05/10/21 05/10/21 05/10/21 08:19 11:55 14:33 WBC RBC Hgb Hct MCV MCH MCHC RDW Std Deviation RDW Coeff of Suzy Plt Count MPV Immature Gran % (Auto) Neut % (Auto) Lymph % (Auto) [place] % (Auto) Eos % (Auto) Baso % (Auto) Neut # (Auto) Lymph # (Auto) [place] # (Auto) Eos # (Auto) Baso # (Auto) Immature Gran # (Auto) PT INR APTT 33.8 H PTT Ratio 1.3 Sodium Potassium Chloride Carbon Dioxide Anion Gap BUN Creatinine Est Cr Clr Drug Dosing Est GFR ( Amer) Est GFR (Non-Af Amer) BUN/Creatinine Ratio Glucose POC Glucose 109 H 109 H Calcium 05/10/21 05/10/21 05/10/21 17:11 20:18 21:20 WBC RBC Hgb Hct MCV MCH MCHC RDW Std Deviation RDW Coeff of Suzy Plt Count MPV Immature Gran % (Auto) Neut % (Auto) Lymph % (Auto) [place] % (Auto) Eos % (Auto) Baso % (Auto) Neut # (Auto) Lymph # (Auto) [place] # (Auto) Eos # (Auto) Baso # (Auto) Immature Gran # (Auto) PT INR APTT Pending PTT Ratio Pending Sodium Potassium Chloride Carbon Dioxide Anion Gap BUN Creatinine Est Cr Clr Drug Dosing Est GFR ( Amer) Est GFR (Non-Af Amer) BUN/Creatinine Ratio Glucose POC Glucose 147 H 127 H Calcium PG Care Time/CCT Total # of Minutes Spent Total Time Spent with Patient: Total time spent is greater than 50% in coordination of care (as documented) at patient's floor/unit and/or counseling patient: Coding Level of Care Code 48499 Subseq Obs Care Lvl 3 Diagnoses Fungemia B49 COVID-19 U07.1 Subtherapeutic international normalized ratio (INR) R79.1 Atrial fibrillation I48.91 Hypertension I10 Hypertension type: essential hypertension Dyslipidemia E78.5 CAD (coronary artery disease) I25.10 Diabetes mellitus E11.9 Left ureteral calculus N20.1 (1) Hypertension Hypertension type: essential hypertension Qualified Code(s): I10 - Essential (primary) hypertension
[2021-05-10] MEDS ORDERED: HEPARIN SOD (PORCINE) 1000 UNIT/ML IV ONE (22:00)
[2021-05-11 06:04] LABS: INR 1.4 (0.9-1.1); Partial Thromboplastin Ratio 3.1; Prothrombin Time 13.8 Seconds (9.0-12.0)
[2021-05-11 06:09] LABS: BUN Creatinine Ratio 13.9 (10-20); Calcium 8.5 mg/dl (8.5-10.1); Creatinine Clr Calc Pharmacy 103.4 ml/min; Est GFR (African American) 102.5 ml/min; Est GFR (Non-African American) 88.5 ml/min; Potassium 3.4 mmol/L (3.5-5.1)
[2021-05-11 06:26] LABS: Partial Thromboplastin Time 81.7 Seconds (21.0-31.0)
[2021-05-11] MEDS: HEPARIN SODIUM/DEXTROSE 25,000 UNITS/500 ML BAG IV SCH ×3 (06:29→21:30)
[2021-05-11] MEDS: ASPIRIN 81 MG ECTAB PO SCH (07:55)
[2021-05-11] MEDS: METOPROLOL SUCC 25MG EXT REL TAB PO SCH (07:55)
[2021-05-11] MEDS: hydroCHLOROthiazide 25 MG TAB PO SCH (07:55)
[2021-05-11] MEDS: INSULIN ASPART 100 UNITS/ML 3 ML PEN SC SCH ×4 (09:37→21:06)
[2021-05-11 13:12] LABS: Partial Thromboplastin Ratio 2.7
[2021-05-11 13:55] LABS: Partial Thromboplastin Time 69.7 Seconds (21.0-31.0)
[2021-05-11] MEDS ORDERED: WARFARIN SOD 5 MG TAB PO ONE (16:00)
[2021-05-11] MEDS: WARFARIN SOD 5 MG TAB PO SCH (16:32)
[2021-05-11] MEDS: ACETAMINOPHEN 500 MG TAB PO PRN ×2 (17:22→21:26)
[2021-05-11] MEDS: CASPOFUNGIN 50 MG in SODIUM CHLORIDE 0.9% 250 ML IV SCH (18:14)
[2021-05-11] MEDS ORDERED: MELATONIN 3 MG TAB PO PRN (20:20)
--- NOTE | 2021-05-11 20:23 | Hospitalist Progress Note ---
Date of Service May 11, 2021 Assessment & Plan (1) Fungemia: Plan: Blood cultures 2/2 from 04/27/21 positive for rubia albicans/dubliniensis. No further speciation. No sensitivities reported. Blood cultures 2/2 from 05/01/21 negative. Had been receiving once daily caspofungin with last date of antifungal therapy tentatively 05/15/21. Thus, today is day 10 of therapy. Due to COVID + status he can no longer receive the IV caspofungin at the hospital's [facility]. Mann JEFFRIES consult appreciated. I spoke with Dr Duarte, Mann JEFFRIES, by phone yesterday and today. He feels that patient can be changed to diflucan 400mg once daily and remain on such until his L ureteral stent is removed and probably 1 week beyond that procedure. However, he should complete the 14 days of casponfungin if possible. C albicans is universally fluconazole sensitive. Finally - Dr Duarte advises echo, EKG (check qtc), and ophtho consult for full eye exam once out of isolation from COVID. Will order echo tomorrow. Cont caspo with plans to d/c on 05/15 and switch to diflucan at that time. Plan of care d/w patient today. (2) COVID-19: Plan: Patient unvaccinated. Was exposed to family members who are Covid-19 positive when he was discharged home on 05/04. Can't rule out that he could have been exposed to COVID during previous hospitalization. He has chronic cough - no change. No dyspnea. O2 sats are low-normal in RA and with activity today dropped briefly. CXR this admission was negative for infiltrates. He is about 7 days into his COVID illness - respiratory status could potentially worsen in the next few days. Continue to monitor. (3) Subtherapeutic international normalized ratio (INR): Plan: Chronic Coumadin for a.fib.. INR again subtherapeutic today. He is refusing lovenox 1mg/kg BID. Given his COVID, recent prolonged hospital stay and surgeries, etc -- he is at high risk of VTE and atrial clot. He is on heparin drip - standard dosing. Cont coumadin - give 5mg extra today for total dose of 10mg this afternoon. Daily INR. I spoke with his primary sales contract administrator, Dr Murillo. If we have hard time getting his INR therapeutic (he has been subtherapeutic for several weeks) we could consider DOAC (eliquis) but for now will stick with coumadin. (4) Atrial fibrillation: Plan: Permanent. Cont metoprolol xl. Cont coumadin - see #3. (5) Hypertension: Plan: Continue HCTZ 25mg daily Continue Metoprolol add K supplementation - K 3.4 today (6) Dyslipidemia: Plan: Continue Atorvastatin (7) CAD (coronary artery disease): Plan: Patient with CAD s/p CAGB in the past. no recent ischemic symptoms. Continue ASA 81mg po daily Continue Atorvastatin 40mg po qHS Continue Metoprolol (8) Diabetes mellitus: Plan: acceptable readings novolog SSI (9) Left ureteral calculus: Plan: Patient s/p stent placement. He will continue antifungal treatment x 7 days post stent-removal. Timing of L stent removal uncertain because of COVID positivity. Plan: DVT proph - heparin drip; coumadin son updated by phone today as well as yesterday care d/w [facility] no d/c today change observation status to full admission status obtain PT, OT evals Admission and Anticipated Discharge Date Admission Date: May 11, 2021 Subjective pt states he is feeling better today he is weak, but overall feels better from COVID standpoint his nasal congestion/sinus congestion is better his chronic cough is largely unchanged denies CABALLERO I had nursing walk him today - dropped briefly to 88, but rebounded within seconds eating fair we had long discussion today about plan of care, INR (he is followed by [facility] and INRs tend to be very stable for him), ID recommendations, etc Review of Systems Review of Systems: gen - no fevers/chills/sweats; appetite a bit better CV - no cp, no orthopnea pulm - no change in character of chronic cough GI - no pain - voiding w/o difficulty Physical Exam Physical Exam: Gen: NAD, sitting in chair HEENT: MMM Neck: no JVD Heart: irregular, s1 s2 Lungs: scant rales bases, no wheeze, no increased work of breathing Abd: soft, NT, ND, BS+, no flank tenderness Ext: no edema, pulses 2+ b/l Skin: PICC LUE c/d/i psych: a/o x 3 Results & Data Results & Data ([facility]) Vital Signs (Past 12 Hours) Vital Signs Temp Pulse Resp BP Pulse Ox 05/11/21 18:16 37.3 C 05/11/21 17:23 37.7 C H 05/11/21 14:50 36.8 C 62 18 120/71 97 Laboratory Results Laboratory Results - last 24 hr 05/10/21 05/11/21 05/11/21 21:20 05:05 05:05 PT 13.8 H INR 1.4 H APTT 37.2 H 81.7 H* PTT Ratio 1.4 3.1 Sodium 136 Potassium 3.4 L Chloride 101 Carbon Dioxide 30 Anion Gap 5.0 BUN 12 Creatinine 0.89 Est Cr Clr Drug Dosing 103.4 Est GFR ( Amer) 102.5 Est GFR (Non-Af Amer) 88.5 BUN/Creatinine Ratio 13.9 Glucose 107 H POC Glucose Calcium 8.5 AST 27 ALT 25 05/11/21 05/11/21 05/11/21 08:23 12:33 12:40 PT INR APTT 69.7 H* PTT Ratio 2.7 Sodium Potassium Chloride Carbon Dioxide Anion Gap BUN Creatinine Est Cr Clr Drug Dosing Est GFR ( Amer) Est GFR (Non-Af Amer) BUN/Creatinine Ratio Glucose POC Glucose 133 H 121 H Calcium AST ALT 05/11/21 05/11/21 17:16 20:15 PT INR APTT Pending PTT Ratio Pending Sodium Potassium Chloride Carbon Dioxide Anion Gap BUN Creatinine Est Cr Clr Drug Dosing Est GFR ( Amer) Est GFR (Non-Af Amer) BUN/Creatinine Ratio Glucose POC Glucose 113 H Calcium AST ALT PG Care Time/CCT Total # of Minutes Spent Total Time Spent with Patient: Total time spent is greater than 50% in coordination of care (as documented) at patient's floor/unit and/or counseling patient: Coding Level of Care Code 31741 Subseq Hosp Care Lvl 3 Diagnoses Fungemia B49 COVID-19 U07.1 Subtherapeutic international normalized ratio (INR) R79.1 Atrial fibrillation I48.91 Hypertension I10 Hypertension type: essential hypertension Dyslipidemia E78.5 CAD (coronary artery disease) I25.10 Diabetes mellitus E11.9 Left ureteral calculus N20.1 (1) Hypertension Hypertension type: essential hypertension Qualified Code(s): I10 - Essential (primary) hypertension
[2021-05-11 20:52] LABS: Partial Thromboplastin Ratio 2.3
[2021-05-11 21:20] LABS: Partial Thromboplastin Time 60.7 Seconds (21.0-31.0)
[2021-05-11] MEDS: ATORVASTATIN 40 MG TAB PO SCH (21:27)
[2021-05-11] MEDS: TAMSULOSIN HCL 0.4 MG CAP PO SCH (21:27)
[2021-05-12 07:23] LABS: Hematocrit (blood only) 29.6 % (42-52); Hemoglobin 9.3 g/dL (14.0-18.0); Mean Corpuscular Hemoglobin 27.9 pg (25-34); Mean Corpuscular Hgb Conc 31.4 g/dL (32-36); Mean Corpuscular Volume 88.9 fL (80-100); Mean Platelet Volume 10.3 fL (7.4-10.4); Platelet Count 214 K/uL (130-400); RDW Standard Deviation 52.5 fL (36.4-46.3); Red Blood Count 3.33 M/uL (4.7-6.1); White Blood Count 3.55 K/uL (4.8-10.8)
[2021-05-12 07:40] LABS: BUN Creatinine Ratio 16.8 (10-20); Calcium 8.4 mg/dl (8.5-10.1); Creatinine Clr Calc Pharmacy 109.6 ml/min; Est GFR (Non-African American) 90.6 ml/min; Potassium 3.6 mmol/L (3.5-5.1)
[2021-05-12 07:46] LABS: INR 1.5 (0.9-1.1); Partial Thromboplastin Ratio 2.5; Prothrombin Time 15.1 Seconds (9.0-12.0)
[2021-05-12 07:51] LABS: Partial Thromboplastin Time 66.7 Seconds (21.0-31.0)
[2021-05-12 07:52] LABS: Immature Granulocytes # (auto) 0.01 K/uL (0.00-0.02); Immature Granulocytes % (auto) 0.3 %; Lymphocytes # (auto) 0.97 K/uL (1.2-3.4); Lymphocytes % (auto) 27.3 %; Monocytes # (auto) 0.23 K/uL (0.11-0.59); Monocytes % (auto) 6.5 %; Neutrophils # (auto) 2.34 K/uL (1.4-6.5); Neutrophils % (auto) 65.9 %
[2021-05-12] MEDS: INSULIN ASPART 100 UNITS/ML 3 ML PEN SC SCH ×4 (09:47→20:51)
[2021-05-12] MEDS: hydroCHLOROthiazide 25 MG TAB PO SCH (09:49)
[2021-05-12] MEDS: POTASSIUM CHLORIDE CRTAB 20 MEQ TABCR PO SCH ×2 (09:49→20:33)
[2021-05-12] MEDS: ASPIRIN 81 MG ECTAB PO SCH (09:49)
[2021-05-12] MEDS: METOPROLOL SUCC 25MG EXT REL TAB PO SCH (09:49)
[2021-05-12] MEDS: ACETAMINOPHEN 500 MG TAB PO PRN ×2 (09:57→21:00)
--- NOTE | 2021-05-12 12:52 | XCELERA ---
[id number]
[2021-05-12 14:44] LABS: Partial Thromboplastin Ratio 2.4
[2021-05-12 14:53] LABS: Partial Thromboplastin Time 64.4 Seconds (21.0-31.0)
[2021-05-12] MEDS: HEPARIN SODIUM/DEXTROSE 25,000 UNITS/500 ML BAG IV SCH ×2 (15:56→19:52)
[2021-05-12] MEDS: WARFARIN SOD 10 MG TAB PO SCH (16:03)
--- NOTE | 2021-05-12 17:08 | Electrocardiogram Report ---
Test Reason : Blood Pressure : / mmHG Vent. Rate : 064 BPM Atrial Rate : 105 BPM P-R Int : 000 ms QRS Dur : 170 ms QT Int : 490 ms P-R-T Axes : 000 -78 084 degrees QTc Int : 505 ms Ventricular-paced rhythm with fusion beats Abnormal ECG When compared with ECG of 21-APR-2021 21:44, Electronic ventricular pacemaker has replaced Atrial fibrillation Confirmed by Duran Matthews ([id number]) on 05/12/2021 5:07:56 PM Referred By: Mary Flood Confirmed By:Alen Matthews
[2021-05-12] MEDS: CASPOFUNGIN 50 MG in SODIUM CHLORIDE 0.9% 250 ML IV SCH (18:20)
--- NOTE | 2021-05-12 19:52 | Hospitalist Progress Note ---
Date of Service May 12, 2021 Assessment & Plan (1) Fungemia: Plan: Clinically resolved. Blood cultures 2/2 from 04/27/21 positive for rubia albicans/dubliniensis. No further speciation. No sensitivities reported. Blood cultures 2/2 from 05/01/21 negative. Had been receiving once daily caspofungin with last date of antifungal therapy tentatively 05/15/21. Thus, today is day 11 of therapy. [facility] consult appreciated. I spoke with Mann Romero. He feels that patient can be changed to diflucan 400mg once daily and remain on such until his L ureteral stent is removed and probably 1 week beyond that procedure. However, he should complete the 14 days of caspofungin if possible. C albicans is universally fluconazole sensitive. Finally - Dr Duarte advised echo, EKG (check qtc), and ophtho consult for full eye exam once out of isolation from COVID. Echo without obvious vegetations. Cont caspo with plans to d/c such on 05/15 and switch to diflucan at that time. (2) COVID-19: Plan: Patient was unvaccinated. Was exposed to family members who are Covid-19 positive when he was discharged home from hospital on 05/04. Can't rule out that he could have been exposed to COVID during previous hospitalization. He has chronic cough - no change. No dyspnea but O2 sats are low-normal in RA . CXR this admission was negative for infiltrates. He is about 8 days into his COVID illness - respiratory status could potentially worsen in the next few days. Continue to monitor. No indication for steroids, remdesivir, etc. (3) Subtherapeutic international normalized ratio (INR): Plan: Chronic Coumadin for a.fib.. INR again subtherapeutic today. Remains on heparin drip and will continue until INR is >2. Cont coumadin at normal dosing (did receive 5mg extra yesterday). Daily INR. I spoke with his primary police inspector, Dr Murillo. If we have hard time getting his INR therapeutic (he has been subtherapeutic for several weeks) we could consider DOAC (eliquis) but for now will stick with coumadin. (4) Atrial fibrillation: Plan: Permanent. Cont metoprolol xl. Cont coumadin - see #3. (5) Hypertension: Plan: Continue HCTZ 25mg daily Continue Metoprolol (6) Dyslipidemia: Plan: Continue Atorvastatin (7) CAD (coronary artery disease): Plan: Patient with CAD s/p CAGB in the past. no recent ischemic symptoms. Continue ASA 81mg po daily Continue Atorvastatin 40mg po qHS Continue Metoprolol (8) Diabetes mellitus: Plan: acceptable readings novolog SSI most recent a1c 8.6% janumet on hold (9) Left ureteral calculus: Plan: Patient s/p stent placement and laser litho during prior hospitalization. He will continue antifungal treatment x 7 days post stent-removal. Timing of L stent removal uncertain because of COVID positivity. Follows with [facility]. Plan: DVT proph - heparin drip; coumadin son updated by phone yesterday obtain PT, OT ferals Admission and Anticipated Discharge Date Admission Date: May 11, 2021 Subjective main complaint is that of fatigue chronic cough unchanged voiding fine did have fever this am and was feeling poorly during such denies dyspea on exertion appetite poor-fair he is tired of being in the hospital Review of Systems Review of Systems: gen - some chills associated with fever CV - no chest pain GI - no diarrhea, no N/V - no dysuria Physical Exam Physical Exam: Gen: NAD, sitting in chair, restricted affect HEENT: MMM Neck: no JVD Heart: RRR, s1 s2, no murmur Lungs: scant rales bases, no wheeze, no increased work of breathing Abd: soft, NT, ND, BS+ Ext: no edema, pulses 2+ b/l psych: a/o x 3 skin: mild pallor Results & Data Results & Data ([facility]) Vital Signs (Past 12 Hours) Vital Signs Temp Pulse Resp BP Pulse Ox 05/12/21 16:11 37.2 C 05/12/21 14:38 36.6 C 63 16 107/66 95 05/12/21 11:30 37.2 C 05/12/21 09:43 37.8 C H 67 125/66 Laboratory Results Laboratory Results - last 24 hr 05/11/21 05/11/21 05/12/21 20:15 20:56 06:50 WBC 3.55 L RBC 3.33 L Hgb 9.3 L Hct 29.6 L MCV 88.9 MCH 27.9 MCHC 31.4 L RDW Std Deviation 52.5 H RDW Coeff of Suzy 16.0 H Plt Count 214 MPV 10.3 Immature Gran % (Auto) 0.3 Neut % (Auto) 65.9 Lymph % (Auto) 27.3 Coleman % (Auto) 6.5 Eos % (Auto) 0.0 Baso % (Auto) 0.0 Neut # (Auto) 2.34 Lymph # (Auto) 0.97 L Coleman # (Auto) 0.23 Eos # (Auto) 0.00 Baso # (Auto) 0.00 Immature Gran # (Auto) 0.01 PT INR APTT 60.7 H* PTT Ratio 2.3 Sodium Potassium Chloride Carbon Dioxide Anion Gap BUN Creatinine Est Cr Clr Drug Dosing Est GFR ( Amer) Est GFR (Non-Af Amer) BUN/Creatinine Ratio Glucose POC Glucose 125 H Calcium 05/12/21 05/12/21 05/12/21 06:50 06:50 08:32 WBC RBC Hgb Hct MCV MCH MCHC RDW Std Deviation RDW Coeff of Suzy Plt Count MPV Immature Gran % (Auto) Neut % (Auto) Lymph % (Auto) Coleman % (Auto) Eos % (Auto) Baso % (Auto) Neut # (Auto) Lymph # (Auto) Coleman # (Auto) Eos # (Auto) Baso # (Auto) Immature Gran # (Auto) PT 15.1 H INR 1.5 H APTT 66.7 H* PTT Ratio 2.5 Sodium 134 L Potassium 3.6 Chloride 102 Carbon Dioxide 28 Anion Gap 4.0 BUN 14 Creatinine 0.84 Est Cr Clr Drug Dosing 109.6 Est GFR ( Amer) 105.0 Est GFR (Non-Af Amer) 90.6 BUN/Creatinine Ratio 16.8 Glucose 121 H POC Glucose 126 H Calcium 8.4 L 05/12/21 05/12/21 05/12/21 12:16 14:10 17:26 WBC RBC Hgb Hct MCV MCH MCHC RDW Std Deviation RDW Coeff of Suzy Plt Count MPV Immature Gran % (Auto) Neut % (Auto) Lymph % (Auto) Coleman % (Auto) Eos % (Auto) Baso % (Auto) Neut # (Auto) Lymph # (Auto) Coleman # (Auto) Eos # (Auto) Baso # (Auto) Immature Gran # (Auto) PT INR APTT 64.4 H* PTT Ratio 2.4 Sodium Potassium Chloride Carbon Dioxide Anion Gap BUN Creatinine Est Cr Clr Drug Dosing Est GFR ( Amer) Est GFR (Non-Af Amer) BUN/Creatinine Ratio Glucose POC Glucose 125 H 109 H Calcium PG Care Time/CCT Total # of Minutes Spent Total Time Spent with Patient: Total time spent is greater than 50% in coordination of care (as documented) at patient's floor/unit and/or counseling patient: Coding Level of Care Code 63407 Subseq Hosp Care Lvl 3 Diagnoses Fungemia B49 COVID-19 U07.1 Subtherapeutic international normalized ratio (INR) R79.1 Atrial fibrillation I48.91 Hypertension I10 Hypertension type: essential hypertension Dyslipidemia E78.5 CAD (coronary artery disease) I25.10 Diabetes mellitus E11.9 Left ureteral calculus N20.1 (1) Hypertension Hypertension type: essential hypertension Qualified Code(s): I10 - Essential (primary) hypertension
[2021-05-12] MEDS: ATORVASTATIN 40 MG TAB PO SCH (20:32)
[2021-05-12] MEDS: TAMSULOSIN HCL 0.4 MG CAP PO SCH (20:33)
[2021-05-12] MEDS: traZODone HCL 50 MG TAB PO SCH (20:33)
[2021-05-12] MEDS ORDERED: ACETAMINOPHEN 500 MG TAB PO ONE (22:09)
[2021-05-13] MEDS: HEPARIN SODIUM/DEXTROSE 25,000 UNITS/500 ML BAG IV SCH ×2 (02:14→08:18)
[2021-05-13 06:15] LABS: Partial Thromboplastin Ratio 2.5
[2021-05-13 06:21] LABS: Partial Thromboplastin Time 65.6 Seconds (21.0-31.0)
[2021-05-13] MEDS: ACETAMINOPHEN 500 MG TAB PO PRN ×2 (08:03→15:42)
[2021-05-13 08:13] LABS: INR 1.8 (0.9-1.1)
[2021-05-13] MEDS: ASPIRIN 81 MG ECTAB PO SCH (09:52)
[2021-05-13] MEDS: hydroCHLOROthiazide 25 MG TAB PO SCH (09:52)
[2021-05-13] MEDS: METOPROLOL SUCC 25MG EXT REL TAB PO SCH (09:53)
[2021-05-13] MEDS: POTASSIUM CHLORIDE CRTAB 20 MEQ TABCR PO SCH ×2 (09:53→21:06)
[2021-05-13] MEDS: INSULIN ASPART 100 UNITS/ML 3 ML PEN SC SCH ×4 (09:55→21:08)
--- NOTE | 2021-05-13 12:10 | XRay Report ---
XR chest 1V portable HISTORY: 65 years-old Male COVID, fever, eval developing pneumonia acute shortness breath with fever COMPARISON: Chest radiograph 05/09/2021, chest CT 12/08/2019. TECHNIQUE: Portable AP view of the chest FINDINGS: Cardiac silhouette is mildly enlarged. Prior median sternotomy with suggested CABG. Left subclavian p acer. No pneumothorax, large pleural effusion or overt pulmonary edema. Mild linear subsegmental atel ectasis/scarring. Degenerative changes of the left shoulder and spine. Reverse right shoulder total j oint arthroplasty. IMPRESSION: No acute process. ACT 112: Negative or not required by law. The above report was generated using voice recognition software. It may contain grammatical, syntax o r spelling errors. Electronically signed by: Laureano Muñiz M.D. 05/13/2021 12:09 PM
[2021-05-13] MEDS: dexAMETHasone 6 MG in SYRINGE 0 ML IV SCH (17:13)
[2021-05-13] MEDS: CASPOFUNGIN 50 MG in SODIUM CHLORIDE 0.9% 250 ML IV SCH (17:14)
[2021-05-13] MEDS: WARFARIN SOD 5 MG TAB PO SCH (17:14)
[2021-05-13 20:25] LABS: Appearance Urine Clear (Clear); Bacteria Urine Automated Negative (Negative); Bilirubin Urine Negative (Negative); Blood Urine 2+ (Negative); Cast Urine Automated 0 /lpf (0-5); Color Urine Yellow; Glucose Urine UA Negative (Negative); Ketones Urine Negative (Negative); Leukocyte Esterase Urine Negative (Negative); Nitrite Urine Negative (Negative); Protein Urine Trace (Negative); Specific Gravity Urine 1.013 (1.000-1.030); Urobilinogen Urine Negative (Negative); pH Urine 6.5 (4.5-7.5)
[2021-05-13] MEDS: ATORVASTATIN 40 MG TAB PO SCH (21:06)
[2021-05-13] MEDS: TAMSULOSIN HCL 0.4 MG CAP PO SCH (21:07)
--- NOTE | 2021-05-13 21:57 | Hospitalist Progress Note ---
Date of Service May 13, 2021 Assessment & Plan (1) Fungemia: Plan: Clinically resolved. Blood cultures 2/2 from 04/27/21 positive for rubia albicans/dubliniensis. No further speciation. No sensitivities reported. Blood cultures 2/2 from 05/01/21 negative. Had been receiving once daily caspofungin with last date of antifungal therapy tentatively 05/15/21. Thus, today is day 12 of therapy. [facility] consult appreciated. I spoke with Mann Romero. He feels that patient can be changed to diflucan 400mg once daily and remain on such until his L ureteral stent is removed and probably 1 week beyond that procedure. However, he should complete the 14 days of caspofungin if possible. C albicans is universally fluconazole sensitive. Finally - Dr Duarte advised echo, EKG (check qtc), and ophtho consult for full eye exam once out of isolation from COVID. Echo without obvious vegetations. EKG with mildly prolonged QTc (about 500msec) - repeat before going back on diflucan. Cont caspo with plans to d/c such on 05/15 and switch to diflucan at that time. (2) COVID-19: Plan: Patient was unvaccinated. Was exposed to family members who are Covid-19 positive when he was discharged home from hospital on 05/04. Can't rule out that he could have been exposed to COVID during previous hospitalization. He has chronic cough - no change per the patient, but to me the cough seems worse. No dyspnea but O2 sats are low-normal in RA . CXR this am negative for infiltrates but he has worsening b/l basilar rales which I believe is likely developing COVID pneumonia. In light of the above will start dexamethasone 6mg IV daily. He is about 9 days into his COVID illness - respiratory status could potentially worsen in the next few days. Continue to monitor. Defer on remdesivir at this time. (3) Subtherapeutic international normalized ratio (INR): Plan: Chronic Coumadin for a.fib.. INR 1.8 today. Remains on heparin drip and will continue until INR is >2. Cont coumadin at normal dosing (did receive 5mg extra 2 days ago). Daily INR. I spoke with his primary analyst microbiology lab, Dr Kopinski. If we have hard time getting his INR therapeutic (he has been subtherapeutic for several weeks) we could consider DOAC (eliquis) but for now will stick with coumadin. (4) Atrial fibrillation: Plan: Permanent. Cont metoprolol xl. Cont coumadin - see #3. (5) Hypertension: Plan: Continue HCTZ 25mg daily Continue Metoprolol Controlled. (6) Dyslipidemia: Plan: Continue Atorvastatin (7) CAD (coronary artery disease): Plan: Patient with CAD s/p CAGB in the past. no recent ischemic symptoms. Continue ASA 81mg po daily Continue Atorvastatin 40mg po qHS Continue Metoprolol (8) Diabetes mellitus: Plan: readings remain controlled novolog SSI most recent a1c 8.6% janumet on hold (9) Left ureteral calculus: Plan: Patient s/p stent placement and laser litho during prior hospitalization. He will continue antifungal treatment x 7 days post stent-removal. Timing of L stent removal uncertain because of COVID positivity. Follows with [facility]. Plan: DVT proph - heparin drip; coumadin son updated by phone this evening obtain PT, OT evals Admission and Anticipated Discharge Date Admission Date: May 11, 2021 Subjective cont with fatigue, cough, poor appetite asks for diet to be liberalized he is voiding w/o difficulty and having no dysuria but is voiding frequently he blames the latter on his heparin drip? slept poorly despite the trazodone no cp, abd pain, nausea moving bowels w/o diarrhea febrile again overnight and this am Review of Systems Review of Systems: gen - chills with his fever, fatigue ENT - no loss of taste or smell CV - no orthopnea Pulm - no wheezing Physical Exam Physical Exam: Gen: NAD, sitting in chair, restricted affect / looks tired HEENT: MMM Neck: no JVD Heart: RRR, s1 s2, no murmur Lungs: more prominent bibasilar rales today, no wheeze, no increased work of breathing Abd: soft, NT, ND, BS+ Ext: no edema, pulses 2+ b/l psych: a/o x 3 skin: mild pallor Results & Data Results & Data ([facility]) Vital Signs (Past 12 Hours) Vital Signs Temp Pulse Resp BP Pulse Ox 05/13/21 17:22 37.5 C 60 18 119/66 93 05/13/21 15:36 37.8 C H 05/13/21 09:58 37 C 74 108/65 90 Laboratory Results Laboratory Results - last 24 hr 05/13/21 05/13/21 05/13/21 05:30 05:30 08:23 PT 17.0 H INR 1.8 H APTT 65.6 H* PTT Ratio 2.5 POC Glucose 123 H Urine Color Urine Appearance Urine pH Ur Specific [place] Urine Protein Urine Glucose (UA) Urine Ketones Urine Blood Urine Nitrite Urine Bilirubin Urine Urobilinogen Ur Leukocyte Esterase Urine WBC (Auto) Urine RBC (Auto) U Hyaline Cast (Auto) U Epithel Cells (Auto) Urine Bacteria (Auto) 05/13/21 05/13/21 05/13/21 12:26 17:26 19:55 PT INR APTT PTT Ratio POC Glucose 146 H 114 H Urine Color Yellow Urine Appearance Clear Urine pH 6.5 Ur Specific [place] 1.013 Urine Protein Trace H Urine Glucose (UA) Negative Urine Ketones Negative Urine Blood 2+ H Urine Nitrite Negative Urine Bilirubin Negative Urine Urobilinogen Negative Ur Leukocyte Esterase Negative Urine WBC (Auto) 1-5 Urine RBC (Auto) 10-30 H U Hyaline Cast (Auto) 0 U Epithel Cells (Auto) 5-10 H Urine Bacteria (Auto) Negative 05/13/21 21:00 PT INR APTT PTT Ratio POC Glucose 192 H Urine Color Urine Appearance Urine pH Ur Specific [place] Urine Protein Urine Glucose (UA) Urine Ketones Urine Blood Urine Nitrite Urine Bilirubin Urine Urobilinogen Ur Leukocyte Esterase Urine WBC (Auto) Urine RBC (Auto) U Hyaline Cast (Auto) U Epithel Cells (Auto) Urine Bacteria (Auto) PG Care Time/CCT Total # of Minutes Spent Total Time Spent with Patient: Total time spent is greater than 50% in coordination of care (as documented) at patient's floor/unit and/or counseling patient: Coding Level of Care Code 16650 Subseq Hosp Care Lvl 3 Diagnoses Fungemia B49 COVID-19 U07.1 Subtherapeutic international normalized ratio (INR) R79.1 Atrial fibrillation I48.91 Hypertension I10 Hypertension type: essential hypertension Dyslipidemia E78.5 CAD (coronary artery disease) I25.10 Diabetes mellitus E11.9 Left ureteral calculus N20.1 (1) Hypertension Hypertension type: essential hypertension Qualified Code(s): I10 - Essential (primary) hypertension
[2021-05-13] MEDS: traZODone HCL 50 MG TAB PO SCH (22:41)
[2021-05-14] MEDS: traZODone HCL 50 MG TAB PO SCH ×2 (00:28→21:30)
[2021-05-14] MEDS: HEPARIN SODIUM/DEXTROSE 25,000 UNITS/500 ML BAG IV SCH ×2 (00:40→19:43)
[2021-05-14 06:39] LABS: Hemoglobin 9.9 g/dL (14.0-18.0); Immature Granulocytes # (auto) 0.01 K/uL (0.00-0.02); Immature Granulocytes % (auto) 0.4 %; Lymphocytes # (auto) 0.63 K/uL (1.2-3.4); Lymphocytes % (auto) 27.6 %; Mean Corpuscular Hemoglobin 28.5 pg (25-34); Mean Corpuscular Hgb Conc 31.9 g/dL (32-36); Mean Corpuscular Volume 89.3 fL (80-100); Mean Platelet Volume 10.5 fL (7.4-10.4); Monocytes # (auto) 0.16 K/uL (0.11-0.59); Neutrophils # (auto) 1.48 K/uL (1.4-6.5); Platelet Count 196 K/uL (130-400); RDW Coefficient of Variation 15.9 % (11.5-14.5); RDW Standard Deviation 51.1 fL (36.4-46.3); Red Blood Count 3.47 M/uL (4.7-6.1); White Blood Count 2.28 K/uL (4.8-10.8)
[2021-05-14 07:12] LABS: Partial Thromboplastin Ratio 4.2; Prothrombin Time 19.3 Seconds (9.0-12.0)
[2021-05-14 07:15] LABS: Partial Thromboplastin Time 111.6 Seconds (21.0-31.0)
[2021-05-14 07:20] LABS: BUN Creatinine Ratio 24.2 (10-20); C Reactive Protein 1.51 mg/dl (0-0.29); Calcium 8.4 mg/dl (8.5-10.1); Creatinine Clr Calc Pharmacy 122.7 ml/min; Est GFR (Non-African American) 94.9 ml/min; Magnesium 2.1 mg/dl (1.8-2.4); Potassium 4.2 mmol/L (3.5-5.1)
[2021-05-14] MEDS: INSULIN ASPART 100 UNITS/ML 3 ML PEN SC SCH ×4 (09:14→21:23)
[2021-05-14] MEDS: METOPROLOL SUCC 25MG EXT REL TAB PO SCH (09:16)
[2021-05-14] MEDS: hydroCHLOROthiazide 25 MG TAB PO SCH (09:16)
[2021-05-14] MEDS: POTASSIUM CHLORIDE CRTAB 20 MEQ TABCR PO SCH ×2 (09:16→20:19)
[2021-05-14] MEDS: ASPIRIN 81 MG ECTAB PO SCH (09:16)
[2021-05-14] MEDS: dexAMETHasone 6 MG in SYRINGE 0 ML IV SCH (13:53)
[2021-05-14 15:04] LABS: Partial Thromboplastin Time 79.2 Seconds (21.0-31.0)
[2021-05-14] MEDS ORDERED: WARFARIN SOD 6 MG TAB PO SCH (16:00)
[2021-05-14] MEDS: CASPOFUNGIN 50 MG in SODIUM CHLORIDE 0.9% 250 ML IV SCH (17:44)
[2021-05-14] MEDS: ATORVASTATIN 40 MG TAB PO SCH (20:19)
[2021-05-14] MEDS: TAMSULOSIN HCL 0.4 MG CAP PO SCH (20:19)
--- NOTE | 2021-05-14 20:42 | Hospitalist Progress Note ---
Date of Service May 14, 2021 Assessment & Plan (1) Fungemia: Plan: Clinically resolved. Blood cultures 2/2 from 04/27/21 positive for rubia albicans/dubliniensis. No further speciation. No sensitivities reported. Blood cultures 2/2 from 05/01/21 negative. Remains on once daily caspofungin. Stop date of caspofungin - 05/15/21. Thus, today is day 13 of therapy. Mann ID consult appreciated. I spoke with Mann Romero. He feels that patient can be changed to diflucan 400mg once daily and remain on such until his L ureteral stent is removed and probably 1 week beyond that procedure. However, he should complete the 14 days of caspofungin first. C albicans is universally fluconazole sensitive. Finally - Dr Duarte advised echo, EKG (check qtc), and ophtho consult for full eye exam once out of isolation from COVID. Echo without obvious vegetations. EKG with mildly prolonged QTc (about 500msec) - repeat before going back on diflucan. Cont caspo with plans to d/c such after his dose on 05/15. On 05/16 switch to diflucan daily. (2) COVID-19: Plan: Patient was unvaccinated. Was exposed to family members who are Covid-19 positive when he was discharged home from hospital on 05/04. Can't rule out that he could have been exposed to COVID during previous hospitalization. No dyspnea but O2 sats are low-normal in RA. He has a chronic cough, but cough is worse, and now he has b/l basilar rales c/w COVID pneumonia. CXR negative for infiltrates but again the worsening b/l basilar rales on exam is likely developing COVID pneumonia. Started dexamethasone 6mg IV daily on 05/13 due to hypoxia; thus, today is day #2. He is about 10 days into his COVID illness - respiratory status could potentially worsen in the next few days. Continue to monitor. Remdesivir deferred. (3) Subtherapeutic international normalized ratio (INR): Plan: Chronic Coumadin for a.fib.. INR 2 today. Remains on heparin drip. If INR tomorrow remains 2 or higher then stop heparin infusion. Cont coumadin but change Tues/Thurs/Sat/Sun dose to 6mg (from 5mg). M/W/F dose = 10mg. Daily INR. (4) Atrial fibrillation: Plan: Permanent. Cont metoprolol xl. Cont coumadin - see #3. (5) Hypertension: Plan: Continue HCTZ 25mg daily Continue Metoprolol Controlled. (6) Dyslipidemia: Plan: Continue Atorvastatin AST/ALT wnl (7) CAD (coronary artery disease): Plan: Patient with CAD s/p CAGB in the past. no recent ischemic symptoms. Continue ASA 81mg po daily Continue Atorvastatin 40mg po qHS Continue Metoprolol (8) Diabetes mellitus: Plan: readings remain controlled novolog SSI most recent a1c 8.6% janumet on hold (9) Left ureteral calculus: Plan: Patient s/p stent placement and laser litho during prior hospitalization. He will continue antifungal treatment x 7 days post stent-removal. Timing of L stent removal uncertain because of COVID positivity. Follows with [facility] [place] [facility] Plan: DVT proph - heparin drip; coumadin son updated by phone this evening and yesterday as well obtain PT, OT evals to ensure he will be strong to return home at discharge Admission and Anticipated Discharge Date Admission Date: May 11, 2021 Subjective pt feeling "ok" he did sleep better last night cough is worse today but denies dyspnea eating is fair at best no new complaints Review of Systems Review of Systems: gen - no fever overnight, no chills; +fatigue, weakness CV - no cp, no orthopnea pulm - no dyspnea at rest or [place] GI - no abd pain, N/V Physical Exam Physical Exam: Gen: NAD, coughing HEENT: MMM Neck: no JVD Heart: RRR, s1 s2, no murmur Lungs: bibasilar rales - no change; no wheeze, no increased work of breathing Abd: soft, NT, ND, BS+ Ext: no edema, pulses 2+ b/l psych: a/o x 3 skin: mild pallor but no rash Results & Data Results & Data ([facility]) Vital Signs (Past 12 Hours) Vital Signs Temp Pulse Resp BP Pulse Ox 05/14/21 15:00 37.0 C 60 18 103/63 94 05/14/21 09:08 37.2 C 67 18 103/67 94 Laboratory Results Laboratory Results - last 24 hr 1005/14/21 05/14/21 21:00 06:06 06:06 WBC 2.28 L RBC 3.47 L Hgb 9.9 L Hct 31.0 L MCV 89.3 MCH 28.5 MCHC 31.9 L RDW Std Deviation 51.1 H RDW Coeff of Suzy 15.9 H Plt Count 196 MPV 10.5 H Immature Gran % (Auto) 0.4 Neut % (Auto) 65.0 Lymph % (Auto) 27.6 Coles % (Auto) 7.0 Eos % (Auto) 0.0 Baso % (Auto) 0.0 Neut # (Auto) 1.48 Lymph # (Auto) 0.63 L Coles # (Auto) 0.16 Eos # (Auto) 0.00 Baso # (Auto) 0.00 Immature Gran # (Auto) 0.01 PT INR APTT PTT Ratio Sodium 133 L Potassium 4.2 D Chloride 103 Carbon Dioxide 25 Anion Gap 6.0 BUN 18 Creatinine 0.75 Est Cr Clr Drug Dosing 122.7 Est GFR ( Amer) 110.0 Est GFR (Non-Af Amer) 94.9 BUN/Creatinine Ratio 24.2 H Glucose 151 H POC Glucose 192 H Calcium 8.4 L Magnesium 2.1 AST 27 ALT 24 C-Reactive Protein 1.51 H 05/14/21 05/14/21 05/14/21 06:06 08:18 11:59 WBC RBC Hgb Hct MCV MCH MCHC RDW Std Deviation RDW Coeff of Suzy Plt Count MPV Immature Gran % (Auto) Neut % (Auto) Lymph % (Auto) Coles % (Auto) Eos % (Auto) Baso % (Auto) Neut # (Auto) Lymph # (Auto) Coles # (Auto) Eos # (Auto) Baso # (Auto) Immature Gran # (Auto) PT 19.3 H INR 2.0 H APTT 111.6 H* PTT Ratio 4.2 Sodium Potassium Chloride Carbon Dioxide Anion Gap BUN Creatinine Est Cr Clr Drug Dosing Est GFR ( Amer) Est GFR (Non-Af Amer) BUN/Creatinine Ratio Glucose POC Glucose 130 H 132 H Calcium Magnesium AST ALT C-Reactive Protein 05/14/21 05/14/21 14:23 16:59 WBC RBC Hgb Hct MCV MCH MCHC RDW Std Deviation RDW Coeff of Suzy Plt Count MPV Immature Gran % (Auto) Neut % (Auto) Lymph % (Auto) Coles % (Auto) Eos % (Auto) Baso % (Auto) Neut # (Auto) Lymph # (Auto) Coles # (Auto) Eos # (Auto) Baso # (Auto) Immature Gran # (Auto) PT INR APTT 79.2 H* PTT Ratio 3.0 Sodium Potassium Chloride Carbon Dioxide Anion Gap BUN Creatinine Est Cr Clr Drug Dosing Est GFR ( Amer) Est GFR (Non-Af Amer) BUN/Creatinine Ratio Glucose POC Glucose 158 H Calcium Magnesium AST ALT C-Reactive Protein PG Care Time/CCT Total # of Minutes Spent Total Time Spent with Patient: Total time spent is greater than 50% in coordination of care (as documented) at patient's floor/unit and/or counseling patient: Coding Level of Care Code 09151 Subseq Hosp Care Lvl 3 Diagnoses Fungemia B49 COVID-19 U07.1 Subtherapeutic international normalized ratio (INR) R79.1 Atrial fibrillation I48.91 Hypertension I10 Hypertension type: essential hypertension Dyslipidemia E78.5 CAD (coronary artery disease) I25.10 Diabetes mellitus E11.9 Left ureteral calculus N20.1 (1) Hypertension Hypertension type: essential hypertension Qualified Code(s): I10 - Essential (primary) hypertension
[2021-05-14 21:37] LABS: Partial Thromboplastin Ratio 2.5
[2021-05-14 21:39] LABS: Partial Thromboplastin Time 66.3 Seconds (21.0-31.0)
[2021-05-15] MEDS: HEPARIN SODIUM/DEXTROSE 25,000 UNITS/500 ML BAG IV SCH ×4 (00:40→08:36)
[2021-05-15 07:26] LABS: Hematocrit (blood only) 33.8 % (42-52); Hemoglobin 10.6 g/dL (14.0-18.0); Mean Corpuscular Hemoglobin 28.4 pg (25-34); Mean Corpuscular Hgb Conc 31.4 g/dL (32-36); Mean Corpuscular Volume 90.6 fL (80-100); Mean Platelet Volume 10.8 fL (7.4-10.4); Platelet Count 229 K/uL (130-400); RDW Coefficient of Variation 15.8 % (11.5-14.5); Red Blood Count 3.73 M/uL (4.7-6.1)
[2021-05-15 07:32] LABS: INR 2.5 (0.9-1.1); Prothrombin Time 23.3 Seconds (9.0-12.0)
[2021-05-15 07:40] LABS: BUN Creatinine Ratio 21.7 (10-20); Calcium 8.7 mg/dl (8.5-10.1); Creatinine Clr Calc Pharmacy 91.1 ml/min; Est GFR (African American) 88.8 ml/min; Est GFR (Non-African American) 76.6 ml/min; Potassium 4.1 mmol/L (3.5-5.1)
[2021-05-15 07:43] LABS: Partial Thromboplastin Ratio 2.7
[2021-05-15 07:53] LABS: Partial Thromboplastin Time 69.9 Seconds (21.0-31.0)
[2021-05-15] MEDS: INSULIN ASPART 100 UNITS/ML 3 ML PEN SC SCH ×4 (09:17→21:50)
[2021-05-15] MEDS: POTASSIUM CHLORIDE CRTAB 20 MEQ TABCR PO SCH ×2 (09:19→21:11)
[2021-05-15] MEDS: METOPROLOL SUCC 25MG EXT REL TAB PO SCH (09:19)
[2021-05-15] MEDS: hydroCHLOROthiazide 25 MG TAB PO SCH (09:19)
[2021-05-15] MEDS: ASPIRIN 81 MG ECTAB PO SCH (09:19)
--- NOTE | 2021-05-15 13:33 | Hospitalist Progress Note ---
Date of Service May 15, 2021 Assessment & Plan (1) Fungemia: Plan: Clinically resolved. Blood cultures 2/2 from 04/27/21 positive for rubia albicans/dubliniensis. No further speciation. No sensitivities reported. Blood cultures 2/2 from 05/01/21 negative. Remains on once daily caspofungin. Stop date of caspofungin - 05/15/21. completed 14 days total [employer] consult appreciated. Dr. Waters spoke with Mann Romero. He feels that patient can be changed to Diflucan 400mg once daily and remain on such until his L ureteral stent is removed and probably 1 week beyond that procedure. C albicans is universally fluconazole sensitive. ophtho consult for full eye exam once out of isolation from COVID. Echo without obvious vegetations. EKG, follow up on QTc (2) COVID-19: Plan: Patient was unvaccinated. Was exposed to family members who are Covid-19 positive when he was discharged home from hospital on 05/04. Can't rule out that he could have been exposed to COVID during previous hospitalization. No dyspnea but O2 sats are low-normal in RA. He has a chronic cough, but cough is worse, and now he has b/l basilar rales c/w COVID pneumonia. CXR negative for infiltrates Started dexamethasone 6mg IV daily on 05/13 due to hypoxia; thus, today is day #3 plan to discharge tomorrow as long as he remains stable on room air (3) Subtherapeutic international normalized ratio (INR): Plan: Chronic Coumadin for a.fib.. INR 2.5 today stop heparin drip Cont coumadin but change Tues/Thurs/Sat/Sun dose to 6mg (from 5mg). M/W/F dose = 10mg. Daily INR. (4) Atrial fibrillation: Plan: Permanent. Cont metoprolol xl. Cont coumadin - see #3. (5) Hypertension: Plan: Continue HCTZ 25mg daily Continue Metoprolol Controlled. (6) Dyslipidemia: Plan: Continue Atorvastatin AST/ALT wnl (7) CAD (coronary artery disease): Plan: Patient with CAD s/p CAGB in the past. no recent ischemic symptoms. Continue ASA 81mg po daily Continue Atorvastatin 40mg po qHS Continue Metoprolol (8) Diabetes mellitus: Plan: readings remain controlled novolog SSI most recent a1c 8.6% janumet on hold (9) Left ureteral calculus: Plan: Patient s/p stent placement and laser litho during prior hospitalization. He will continue antifungal treatment x 7 days post stent-removal. Timing of L stent removal uncertain because of COVID positivity. [place] [facility]. Plan: DVT proph - heparin drip; coumadin son updated by phone this evening and yesterday as well obtain PT, OT evals to ensure he will be strong to return home at discharge Admission and Anticipated Discharge Date Admission Date: May 11, 2021 Subjective patient feeling really tired today, said he had a rough night breathing okay, saturations stable on room air today is last day of Caspofungin, plan to go home in the morning, he agrees eating okay but not great, appetite was better a few days ago no chest pain, no fever, no cough, no diarrhea making urine Review of Systems Review of Systems: All systems reviewed & are unremarkable except as noted in Subjective Constitutional: + fatigue and + weakness; no fever Respiratory: no cough and no dyspnea Cardiovascular: no chest pain and no edema Gastrointestinal: no abdominal pain, no nausea, no vomiting, no constipation and no diarrhea/loose stools Physical Exam Physical Exam: General: well developed, well nourished, obese, no acute distress, comfortable Neck: supple, trachea midline, normal thyroid Lungs: clear to auscultation bilaterally, normal respiratory effort, no accessory muscle use, no distress Heart: regular S1 and S2, no murmur, peripheral pulses normal, capillary refill normal, no edema Abdomen: soft, NT, ND, + BS, no hepatomegaly, normal to percussion Extremities: normal in appearance, no cyanosis, no petechiae, strength is 5/5 bilaterally Neuro: awake, cooperative, moves all extremities, no focal motor deficits, CN II-XII intact, sensation in extremities intact, normal speech Skin: warm, dry, no rash, normal turgor Psych: Awake, alert oriented x 3, euthymic affect Results & Data Results & Data ([facility]) Vital Signs (Past 12 Hours) Vital Signs Temp Pulse Resp BP Pulse Ox 05/15/21 08:02 36.9 C 62 16 119/73 93 Laboratory Results Laboratory Results - last 24 hr 05/14/21 05/14/21 05/14/21 14:23 16:59 21:10 WBC RBC Hgb Hct MCV MCH MCHC RDW Std Deviation RDW Coeff of Suzy Plt Count MPV PT INR APTT 79.2 H* 66.3 H* PTT Ratio 3.0 2.5 Sodium Potassium Chloride Carbon Dioxide Anion Gap BUN Creatinine Est Cr Clr Drug Dosing Est GFR ( Amer) Est GFR (Non-Af Amer) BUN/Creatinine Ratio Glucose POC Glucose 158 H Calcium 05/14/21 05/15/21 05/15/21 21:21 07:10 07:10 WBC 4.70 L RBC 3.73 L Hgb 10.6 L Hct 33.8 L MCV 90.6 MCH 28.4 MCHC 31.4 L RDW Std Deviation 53.0 H RDW Coeff of Suzy 15.8 H Plt Count 229 MPV 10.8 H PT INR APTT 69.9 H* PTT Ratio 2.7 Sodium Potassium Chloride Carbon Dioxide Anion Gap BUN Creatinine Est Cr Clr Drug Dosing Est GFR ( Amer) Est GFR (Non-Af Amer) BUN/Creatinine Ratio Glucose POC Glucose 160 H Calcium 05/15/21 05/15/21 05/15/21 07:10 07:10 08:18 WBC RBC Hgb Hct MCV MCH MCHC RDW Std Deviation RDW Coeff of Suzy Plt Count MPV PT 23.3 H INR 2.5 H APTT PTT Ratio Sodium 135 L Potassium 4.1 Chloride 104 Carbon Dioxide 26 Anion Gap 6.0 BUN 22 H Creatinine 1.01 Est Cr Clr Drug Dosing 91.1 Est GFR ( Amer) 88.8 Est GFR (Non-Af Amer) 76.6 BUN/Creatinine Ratio 21.7 H Glucose 139 H POC Glucose 139 H Calcium 8.7 05/15/21 12:38 WBC RBC Hgb Hct MCV MCH MCHC RDW Std Deviation RDW Coeff of Suzy Plt Count MPV PT INR APTT PTT Ratio Sodium Potassium Chloride Carbon Dioxide Anion Gap BUN Creatinine Est Cr Clr Drug Dosing Est GFR ( Amer) Est GFR (Non-Af Amer) BUN/Creatinine Ratio Glucose POC Glucose 115 H Calcium Medications Administered Current Inpatient Medications Acetaminophen (Acetaminophen 500 Mg Tab) 500 mg PO Q6H PRN PRN Reason: Pain Stop: 06/09/21 00:19 Last Admin: 05/13/21 15:42 Dose: 500 mg Documented by: Aspirin (Aspirin 81 Mg Ectab) [facility] [place] Stop: 06/09/21 08:59 Last Admin: 05/15/21 09:19 Dose: 81 mg Documented by: Atorvastatin Calcium (Atorvastatin 40 Mg Tab) 40 mg PO HS [facility] Stop: 06/09/21 20:59 Last Admin: 05/14/21 20:19 Dose: 40 mg Documented by: Dextrose (Dextrose 50% 50 Ml Syringe) 25 - 50 ml IV UD PRN; Protocol PRN Reason: Hypoglycemia Protocol Stop: 06/08/21 23:44 Glucagon (Glucagon For Inj 1 Mg Vial) 1 mg SQ UD PRN; Protocol PRN Reason: Hypoglycemia Protocol Stop: 06/08/21 23:44 Glucose (Glucose 10 Tabs/Tube) 4 - 8 tabs PO UD PRN; Protocol PRN Reason: Hypoglycemia Protocol Stop: 06/08/21 23:44 Glucose (Glucose 40% Gel 15 Gm Tube) 15 - 30 gm PO UD PRN; Protocol PRN Reason: Hypoglycemia Protocol Stop: 06/08/21 23:44 Hydrochlorothiazide (Hydrochlorothiazide 25 Mg Tab) 25 mg PO [facility] Stop: 06/09/21 08:59 Last Admin: 05/15/21 09:19 Dose: 25 mg Documented by: Caspofungin 50 mg/ Sodium (Chloride) 260 mls @ 250 mls/hr IV Q24H [facility] Stop: 05/20/21 17:59 Last Infusion: 05/14/21 18:49 Dose: Infused Documented by: Heparin Sodium/Dextrose (Heparin Sodium/Dextrose) 25,000 units in 500 mls @ 22 mls/hr IV .[id number] [facility]; Protocol Stop: 06/09/21 12:59 Last Admin: 05/15/21 08:36 Dose: Not Given Documented by: Dexamethasone 6 mg/ Syringe 1.5 mls @ 1 mls/min IV Q24H [facility] Stop: 06/12/21 14:29 Last Admin: 05/14/21 13:53 Dose: 1 mls/min Documented by: Insulin Aspart (Insulin Aspart 100 Units/Ml 3 Ml Pen) 0 units SC ACHS [facility] Stop: 06/09/21 07:29 Last Admin: 05/15/21 13:17 Dose: 1 units Documented by: Meclizine HCl (Meclizine Hcl 25 Mg Tab) 25 mg PO TID PRN PRN Reason: dizziness Stop: 06/09/21 00:08 Melatonin (Melatonin 3 Mg Tab) 3 mg PO HS PRN PRN Reason: Sleep Stop: 06/10/21 20:19 Last Admin: 05/11/21 23:24 Dose: 3 mg Documented by: Metoprolol Succinate (Metoprolol Succ 25mg Ext Rel Tab) 25 mg PO QAM [facility] Stop: 06/09/21 08:59 Last Admin: 05/15/21 09:19 Dose: 25 mg Documented by: Miscellaneous (Carbohydrates For Hypoglycemia ) 15 - 30 gm PO UD PRN PRN Reason: Hypoglycemia Protocol Stop: 06/08/21 23:44 Ondansetron HCl (Ondansetron Inj 2 Mg/Ml 2 Ml Vial) 4 mg IV Q6H PRN PRN Reason: Nausea Stop: 06/08/21 23:44 Phenazopyridine HCl (Phenazopyridine Hcl 200 Mg Tab) 200 mg PO TID PRN PRN Reason: painful urination Stop: 06/08/21 23:44 Potassium Chloride (Potassium Chloride Crtab 20 Meq Tabcr) 20 meq PO BID [facility] Stop: 06/11/21 08:59 Last Admin: 05/15/21 09:19 Dose: 20 meq Documented by: Tamsulosin HCl (Tamsulosin Hcl 0.4 Mg Cap) 0.4 mg PO [facility] Stop: 06/09/21 20:59 Last Admin: 05/14/21 20:19 Dose: 0.4 mg Documented by: Trazodone HCl (Trazodone Hcl 50 Mg Tab) 50 mg PO [facility] Stop: 06/12/21 20:59 Last Admin: 05/14/21 21:30 Dose: Not Given Documented by: Warfarin Sodium (Warfarin Sod 10 Mg Tab) 10 mg PO [email or web address] [facility] Stop: 06/09/21 15:59 Last Admin: 05/12/21 16:03 Dose: 10 mg Documented by: Warfarin Sodium (Warfarin Sod 6 Mg Tab) 6 mg PO [email or web address] [facility] Stop: 06/13/21 15:59 Last Admin: 05/14/21 18:03 Dose: 6 mg Documented by: PG Care Time/CCT Total # of Minutes Spent Total Time Spent with Patient: Total time spent is greater than 50% in coordination of care (as documented) at patient's floor/unit and/or counseling patient: Coding Level of Care Code 30168 Subseq Hosp Care Lvl 2 Diagnoses Fungemia B49 COVID-19 U07.1 Subtherapeutic international normalized ratio (INR) R79.1 Atrial fibrillation I48.91 Hypertension I10 Hypertension type: essential hypertension Dyslipidemia E78.5 CAD (coronary artery disease) I25.10 Diabetes mellitus E11.9 Left ureteral calculus N20.1 (1) Hypertension Hypertension type: essential hypertension Qualified Code(s): I10 - Essential (primary) hypertension
[2021-05-15] MEDS ORDERED: [UNRECOGNIZED DRUG - REMARK] ONE (13:45)
[2021-05-15] MEDS: dexAMETHasone 6 MG in SYRINGE 0 ML IV SCH (13:48)
[2021-05-15] MEDS: WARFARIN SOD 10 MG TAB PO SCH (15:59)
[2021-05-15] MEDS: CASPOFUNGIN 50 MG in SODIUM CHLORIDE 0.9% 250 ML IV SCH (17:58)
[2021-05-15] MEDS: ATORVASTATIN 40 MG TAB PO SCH (21:11)
[2021-05-15] MEDS: TAMSULOSIN HCL 0.4 MG CAP PO SCH (21:11)
[2021-05-15] MEDS: traZODone HCL 50 MG TAB PO SCH (23:44)
[2021-05-16 08:06] LABS: Hematocrit (blood only) 31.8 % (42-52); Hemoglobin 10.1 g/dL (14.0-18.0); Immature Granulocytes # (auto) 0.02 K/uL (0.00-0.02); Immature Granulocytes % (auto) 0.4 %; Lymphocytes # (auto) 0.79 K/uL (1.2-3.4); Lymphocytes % (auto) 17.7 %; Mean Corpuscular Hemoglobin 28.3 pg (25-34); Mean Corpuscular Hgb Conc 31.8 g/dL (32-36); Mean Corpuscular Volume 89.1 fL (80-100); Mean Platelet Volume 10.4 fL (7.4-10.4); Monocytes # (auto) 0.43 K/uL (0.11-0.59); Monocytes % (auto) 9.6 %; Neutrophils # (auto) 3.22 K/uL (1.4-6.5); Neutrophils % (auto) 72.3 %; Platelet Count 207 K/uL (130-400); RDW Coefficient of Variation 15.8 % (11.5-14.5); RDW Standard Deviation 51.3 fL (36.4-46.3); Red Blood Count 3.57 M/uL (4.7-6.1); White Blood Count 4.46 K/uL (4.8-10.8)
[2021-05-16 08:19] LABS: INR 3.3 (0.9-1.1); Prothrombin Time 30.8 Seconds (9.0-12.0)
[2021-05-16] MEDS ORDERED: FLUCONAZOLE 100 MG TAB PO SCH (09:00)
[2021-05-16] MEDS: hydroCHLOROthiazide 25 MG TAB PO SCH (09:16)
[2021-05-16] MEDS: ASPIRIN 81 MG ECTAB PO SCH (09:16)
[2021-05-16] MEDS: POTASSIUM CHLORIDE CRTAB 20 MEQ TABCR PO SCH (09:17)
[2021-05-16] MEDS: METOPROLOL SUCC 25MG EXT REL TAB PO SCH (09:17)
[2021-05-16] MEDS: INSULIN ASPART 100 UNITS/ML 3 ML PEN SC SCH (09:20)
--- NOTE | 2021-05-16 10:56 | Discharge Summary ---
Date of Service May 16, 2021 Admission HPI Per Admitting Provider Renzo Fitzgerald is a 65yo male with history of CAD, DM, PAF presently on Coumadin. Patient presented to [facility] on 04/22/21 with complaint of chills and rigors following a ureteral stent placement 1 week prior. Patient found to have candidemia with 2/2 blood cultures from 04/27/21 positive for rubia albicans. He was treated with IV Caspofungin and discharged home with instruction to complete his IV Caspofungin with daily infusions at the [facility]. Patient was receiving his infusions at the [facility] without difficulty. Unfortunately, 4 days ago he developed fever and body aches. He tested positive for Covid-19 yesterday. He is now unable to receive his infusions at the [facility] due to his Covid positive status. Patient missed one dose of Caspofungin two days ago otherwise has received all infusions. He lives at home alone. Has two sons in the area that are also positive for Covid-19 and are quite symptomatic. No additional complaints at this time. No fever, cough, SOB, loss of taste or smell. He had some diarrhea several days ago which has since resolved. ER Course: Lovenox 150mg, Caspofungin 50mg IV Principal Diagnosis Fungemia COVID 19 infection Discharge Exam General: well developed, well nourished, obese, no acute distress, comfortable Neck: supple, trachea midline, normal thyroid Lungs: clear to auscultation bilaterally, normal respiratory effort, no accessory muscle use, no distress Heart: regular S1 and S2, no murmur, peripheral pulses normal, capillary refill normal, no edema Abdomen: soft, NT, ND, + BS, no hepatomegaly, normal to percussion Extremities: normal in appearance, no cyanosis, no petechiae, strength is 5/5 bilaterally Neuro: awake, cooperative, moves all extremities, no focal motor deficits, CN II-XII intact, sensation in extremities intact, normal speech Skin: warm, dry, no rash, normal turgor Psych: Awake, alert oriented x 3, euthymic affect Discharge Data Allergies Allergy/AdvReac Type Severity Reaction Status Date / Time No Known Allergies Allergy Verified 05/19/21 10:35 Consultations 05/09/21 20:33 ED Decision to Admit Stat 05/09/21 23:45 Consult Infectious Diseases Routine Hospital Course (1) Fungemia: Clinically resolved. Blood cultures 2/2 from 04/27/21 positive for rubia albicans/dubliniensis. No further speciation. No sensitivities reported. Blood cultures 2/2 from 05/01/21 negative. treated with full course of caspofungin Stop date of caspofungin - 05/15/21. completed 14 days total [facility] ID consult appreciated. Dr. Waters spoke with Dr Duarte, [facility] ID. He feels that patient can be changed to Diflucan 400mg once daily and remain on such until his L ureteral stent is removed and probably 1 week beyond that procedure. C albicans is universally fluconazole sensitive. needs ophtho consult for full eye exam once out of isolation from COVID Echo without obvious vegetations. EKG, follow up on QTc, it is < 500 (2) COVID-19: Patient was unvaccinated. Was exposed to family members who are Covid-19 positive when he was discharged home from hospital on 05/04. Can't rule out that he could have been exposed to COVID during previous hospitalization. No dyspnea but O2 sats are low-normal in RA. He has a chronic cough, but cough is worse, and now he has b/l basilar rales c/w COVID pneumonia. CXR negative for infiltrates Started dexamethasone 6mg IV daily on 05/13 due to hypoxia; thus, today is day #4 however, he is on room air, no cough, no dyspnea no need for further dexamethasone instructed him to monitor for worsening dyspnea, finger pulse oximetery at home, want oxygen > 88% (3) Subtherapeutic international normalized ratio (INR): Chronic Coumadin for a.fib.. INR up to 3.3 on discharge was on heparin drip when INR was < 2 will be on Diflucan for 10-14 days which raises INR should get INR check in 2-3 days, results to [facility] cardiology they can give further instruction told him to hold Coumadin until he gets INR (4) Atrial fibrillation: Permanent. Cont metoprolol xl. Cont coumadin - see #3. (5) Hypertension: Continue HCTZ 25mg daily Continue Metoprolol Controlled. (6) Dyslipidemia: Continue Atorvastatin AST/ALT wnl (7) CAD (coronary artery disease): Patient with CAD s/p CAGB in the past. no recent ischemic symptoms. Continue ASA 81mg po daily Continue Atorvastatin 40mg po qHS Continue Metoprolol (8) Diabetes mellitus: readings remain controlled novolog SSI most recent a1c 8.6% janumet resumed on d/c (9) Left ureteral calculus: Patient s/p stent placement and laser litho during prior hospitalization. He will continue antifungal treatment x 7 days post stent-removal. Timing of L stent removal uncertain because of COVID positivity. Follows with [facility]. DVT proph - heparin drip; coumadin Total Time Total Time Spent Total Time Spent (In Minutes): 33 minutes Discharge Plan Discharge Items Patient Disposition: Home - Self-Care Reason For Visit: FUNGEMIA, COVID Discharge Diagnosis: Fungemia - Rubia COVID 19 positive Condition on Discharge: Good Goals: follow up with urology to remove stent close monitoring of INR while on fluconazole stay well rested, well nourished, well hydrated Activity: Resume your previous activity Driving/Machine Use: No limitations Weightbearing: Full weightbearing Non-emergency contact: Primary Care Provider and Urologist Call non-emergency contact if: you have any medication questions, your symptoms worsen and you have a fever Follow-up/Referrals: Mary Flood CRNP [Primary Care Provider] - 05/19/21 10:30 am Claude Garcia DO [Physician] - (7-10 days for stent removal.Office will call patient with appointment date and time) Diet: Carb Consistent or DM2 and Heart Healthy Ambulatory Orders: Prothrombin Time INR (Routine) Timeframe: 2 Days Location: Determined by Patient Ordered By: Chaim Clarke Attending Provider Instructions: Medications: - FLUCONAZOLE: continue taking 400mg daily, need to take for 7 days after ureteral stent removed - COUMADIN: hold until INR on 05/19, call [facility] Cardiology for further instruction fluconazole raises INR levels so you will need a lower dose of Coumadin than normal while on the fluconazole INR is 3.3 today so you can hold it for 2-3 days and get INR rechecked Fungemia, Rubia completed 14 days of Caspofungin, transition to fluconazole per infectious disease, you need to be on fluconazole until ureteral stent removed and then for 7 days after stent removed repeat blood cultures have been clean you need to be referred to eye doctor for dedicated evaluation of eyes, rule out fungal infection in eyes COVID 19: no hypoxia, no need for further dexamethasone stay well nourished, well hydrated, monitor for any worsening shortness of breath you can monitor finger pulse oximetry at home, want saturations to be greater than 88% Pending Studies at Discharge: No Stand-Alone Forms: My [facility] [employer], Smoking Cessation Medications and DC Order Prescriptions: New fluconazole 200 mg tablet 400 mg PO QAM 20 Days Qty: 40 RF: 0 Continued Carnivora 250 mcg PO BID RF: 0 coenzyme Q10 [Co Q-10] 200 mg capsule 200 mg PO DAILY RF: 0 Nattokinase Plus 1 tab PO DAILY RF: 0 ascorbic acid (vitamin C) 500 mg capsule 500 mg PO BID RF: 0 meclizine 25 mg tablet 25 mg PO TID PRN (Reason: dizziness) Qty: 30 RF: 2 atorvastatin 40 mg tablet 40 mg PO HS Qty: 90 RF: 1 indomethacin 25 mg capsule 50 mg PO BID PRN (Reason: GOUT) RF: 0 hydrochlorothiazide 25 mg tablet 25 mg PO QAM RF: 0 leuprolide 7.5 mg injectable 7.5 mg IM . EVERY 3 MONTHS RF: 0 aspirin 81 mg Tablet,Delayed Release (Dr/Ec) 81 mg PO QAM RF: 0 metoprolol succinate 25 mg Tablet Extended Release 24 Hr 25 mg PO QAM RF: 0 tamsulosin 0.4 mg capsule 0.4 mg PO HS RF: 0 acetaminophen [Tylenol Extra Strength] 500 mg Tablet 500 mg PO Q6H PRN (Reason: Pain) RF: 0 Janumet XR 50-1,000 mg tablet, ER multiphase 24 hr 1 tab PO BID RF: 0 phenazopyridine [Pyridium] 200 mg Tablet 200 mg PO TID PRN (Reason: painful urination) Qty: 14 RF: 0 Discontinued warfarin 5 mg tablet 5 - 10 mg PO UD RF: 0 caspofungin 50 mg recon soln 50 mg IV DAILY 10 Days Qty: 10 RF: 1 Discharge Orders: Discharge Order (Routine); Ordered 05/16/21 Ordered By: Chaim Farrell/Other Patient Handouts: Symptoms of COVID-19 Infection, 2019-nCoV, COVID-19 Home Care, What to Know When TakingWarfarin Admission Data Admit Date/Time: 05/09/21 21:48 Attending Provider: Chaim Koroma Admit Provider: Sarita Tamez Primary Care Provider: Mary Flood Other Providers: Sarita Tamez ; Cesar Ragland ; Barney Harris ; Mir Tamez I. ; Brian Barrera II ; Gudelia Oconnor ; Piero Mcnally Other Interventions: Discharge Summary Assessment (RN) Last Done: 05/16/21 11:00 Coding Level of Care Code D/C DAY MANAGEMENT >30 MINS Diagnoses Fungemia B49 COVID-19 U07.1 Subtherapeutic international normalized ratio (INR) R79.1 Atrial fibrillation I48.91 Hypertension I10 Hypertension type: essential hypertension Dyslipidemia E78.5 CAD (coronary artery disease) I25.10 Diabetes mellitus E11.9 Left ureteral calculus N20.1
--- NOTE | 2021-05-16 14:58 | Electrocardiogram Report ---
Test Reason : Blood Pressure : / mmHG Vent. Rate : 060 BPM Atrial Rate : 081 BPM P-R Int : 000 ms QRS Dur : 164 ms QT Int : 494 ms P-R-T Axes : 000 -75 085 degrees QTc Int : 494 ms Ventricular-paced rhythm Abnormal ECG When compared with ECG of 11-MAY-2021 06:42, Vent. rate has decreased BY 4 BPM Confirmed by Jordi Alfaro ([id number]) on 05/16/2021 2:57:44 PM Referred By: Mary Flood Confirmed By:Jordi Alfaro
--- NOTE | 2021-05-22 12:27 | Coding Query ---
PRESENT ON ADMISSION QUERY To promote full compliance with coding requirements relating to pateint care, physician participation is requested in all cases of solderer electronic uncertainty. Please assist us with the question(s) below: Please place an X within the parenthesis (x). The following diagnosis listed in this patient's medical record require physician assistance to determine if they were present on admission (POA) or not. Please advise for each diagnosis whether it was present on admission, not present on admission, or if it was clinically undetermined. 1.COVID PNEUMONIA ( x) Present On Admission ( ) Not Present On Admission ( ) Clinically Undetermined Thank you, Ash Gar *Definition of the present on admission (POA)-Present on admission is defined as present at the time the order for inpatient admission occurs. Conditions that develop during an outpatient encounter prior to a written order for inpatient admission (including emergency department, observation, or outpatient surgery) are considered present on admission. DONND
== END 2021-05-16 12:42 | disposition home or self-care (01) | DRG 867 ==
LOC: 3W 16:10 → ED 16:10 → SUATTDRO 21:48 → 3W 23:24 → SUATTDRO 05-11 15:38

== ENCOUNTER 2023-01-31 08:37 | Observation (INO) ==
--- NOTE | 2023-01-01 15:15 | PAT Medication Instructions ---
Medication Instructions Date of Service January 01, 2023 Home Medications Medication Instructions Recorded atorvastatin 40 mg tablet 40 mg PO HS #90 tabs 05/27/21 sitagliptin phos 50 mg-metformin 1 tab PO BID #180 tabs 08/27/22 ER 1,000 mg tablet,extend rel 24h mp (Janumet XR) tamsulosin 0.4 mg capsule 0.4 mg PO HS #90 caps 08/27/22 dulaglutide 0.75 mg/0.5 mL 1.5 mg subcut .COMPLEX #6 mL 10/25/22 subcutaneous pen injector (Trulicity) aspirin 81 mg tablet,delayed release 81 mg PO QAM metoprolol succinate 25 mg tablet,extended release 24 hr 25 mg PO QAM ascorbic acid (vitamin C) 500 mg capsule 500 mg PO BID atorvastatin 40 mg tablet 40 mg PO HS zinc 50 mg tablet 50 mg PO HS losartan 50 mg tablet 50 mg PO QAM warfarin 5 mg tablet See Rx Instructions .Route .COMPLEX cholecalciferol (vitamin D3) 25 mcg (1,000 unit) capsule 25 mcg PO QAM sitagliptin phos 50 mg-metformin ER 1,000 mg tablet,extend rel 24h mp (Janumet XR) 1 tab PO BID tamsulosin 0.4 mg capsule 0.4 mg PO HS dulaglutide 0.75 mg/0.5 mL subcutaneous pen injector (Trulicity) 1.5 mg subcut .COMPLEX Continue as directed dulaglutide 0.75 mg/0.5 mL subcutaneous pen injector (Trulicity) 1.5 mg subcut .COMPLEX ASK your prescriber and surgeon warfarin 5 mg tablet See Rx Instructions .Route .COMPLEX DO NOT take the morning of surgery ascorbic acid (vitamin C) 500 mg capsule 500 mg PO BID losartan 50 mg tablet 50 mg PO QAM cholecalciferol (vitamin D3) 25 mcg (1,000 unit) capsule 25 mcg PO QAM sitagliptin phos 50 mg-metformin ER 1,000 mg tablet,extend rel 24h mp (Janumet XR) 1 tab PO BID Take morning of surgery With a small sip of water, OTHERWISE NOTHING TO EAT OR DRINK AFTER MIDNIGHT: aspirin 81 mg tablet,delayed release 81 mg PO QAM (unless directed otherwise by surgeon) metoprolol succinate 25 mg tablet,extended release 24 hr 25 mg PO QAM Take evening before surgery ascorbic acid (vitamin C) 500 mg capsule 500 mg PO BID atorvastatin 40 mg tablet 40 mg PO HS zinc 50 mg tablet 50 mg PO HS sitagliptin phos 50 mg-metformin ER 1,000 mg tablet,extend rel 24h mp (Janumet XR) 1 tab PO BID tamsulosin 0.4 mg capsule 0.4 mg PO HS Other Notes If you have any questions please call us at [phone] or [phone] or [phone] or [phone]
--- NOTE | 2023-01-04 09:54 | Anesthesiology Consultation ---
Date of Service January 04, 2023 Assessment & Plan (1) Encounter for pre-operative examination: - Check coags AM DOS (shameka instructions per prescriber/surgeon- per patient, he has been advised to hold warfarin 4 days before surgery with no bridging) - Check BSG AM DOS - COVID screening: Per assessment on 01/04: No known COVID-19 positive contacts or current COVID-19 related symptoms. Travel screen negative. At surgeon discretion if preop Covid testing being done. - Outpatient joint assessment: Pt currently scheduled for inpatient pathway. If surgeon requests review for outpatient joint pathway, patient is not recommended candidate for outpatient joint program from anesthesia standpoint. - Pacemaker: Left sided pacemaker and patient scheduled for Left TSA reverse > pacer rep requested. OR/Velvet made aware. - Patient acceptable risk for surgery pending surgeon-ordered cardiology preop evaluation (JANIS Schofield, appt 01/11). Chart Review Chart Review: Patient seen in Pre Admission Testing Teaching & Discussion Pre-Anesthesia Teaching/Discussion Notes: Instructed NPO after midnight before surgery,except medications with 15 cc of water. Medication instructions provided according to the PAT guidelines. History Surgery Operation Date: 01/21/23 11:55 Proposed Procedures p Left Total Shoulder Arthroplasty Reverse - Rusty Perez MD Height/Weight Height: 6 ft Weight: 115.8 kg Allergies Allergy/AdvReac Type Severity Reaction Status Date / Time No Known Allergies Allergy Verified 01/01/23 11:44 Medications Home Medications Medication Instructions Recorded Confirmed Last Taken aspirin 81 mg tablet,delayed 81 mg PO QAM 06/26/18 01/01/23 09/21/21 release metoprolol succinate 25 mg 25 mg PO QAM 06/26/18 01/01/23 09/21/21 tablet,extended release 24 hr ascorbic acid (vitamin C) 500 mg 500 mg PO BID 01/09/21 01/01/23 09/21/21 08:00 capsule atorvastatin 40 mg tablet 40 mg PO HS #90 tabs 05/27/21 01/01/23 09/21/21 zinc 50 mg tablet 50 mg PO HS 07/10/21 01/01/23 09/21/21 losartan 50 mg tablet 50 mg PO QAM 09/21/21 01/01/23 09/21/21 warfarin 5 mg tablet See Rx Instructions .Route .COMPLEX 09/21/21 01/01/23 09/21/21 08:00 cholecalciferol (vitamin D3) 25 25 mcg PO QAM 06/26/22 01/01/23 Unknown mcg (1,000 unit) capsule sitagliptin phos 50 mg-metformin 1 tab PO BID #180 tabs 08/27/22 01/01/23 Unknown ER 1,000 mg tablet,extend rel 24h mp (Janumet XR) tamsulosin 0.4 mg capsule 0.4 mg PO HS #90 caps 08/27/22 01/01/23 Unknown dulaglutide 0.75 mg/0.5 mL 1.5 mg subcut .COMPLEX #6 mL 10/25/22 01/01/23 Unknown subcutaneous pen injector (Trulicity) Past Medical History Medical History SUE (acute kidney injury) Hx 2020 CAD (coronary artery disease) CABG x3 (2009) Diabetes mellitus, type 2 NIDDM Diabetic peripheral neuropathy associated with type 2 diabetes mellitus Diverticulosis of colon Generalized weakness Situational/associated with the lupron injection every 3 months Gout hx History of COVID-19 2020- mild symptoms (during kidney stone and sepsis treatments) > resolved History of myocardial infarction > CABG x3 (2009) Hx MRSA infection right foot infection in 2020 - no recent issues Intracanalicular fibroadenoma per records, patient unaware Kidney stones hx Obesity ALISSA (obstructive sleep apnea) no device, "mild" 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 Murillo "last checked within the last several months" Paroxysmal atrial fibrillation per cardiology records, patient unaware Prostate cancer s/p radiation and seed now on lupron injections q3 months Sciatica Sepsis 2020 -- treated at [facility] r/t kidney stones and uretral stent Exercise / Class Metabolic Activity II 4-5 Yardwork/Stairs/Walk up hill (one FS (no CP, no SOB)) Past Family History Family History Unknown Prostate cancer self Father Diabetes Myocardial infarction Other No family history of adverse response to anesthesia Denies family history of Ovarian cancer Breast cancer Colorectal cancer Past Surgical History Surgical History H/O prostate biopsy History of arthroplasty of right shoulder History of arthroscopy of left shoulder RCR x2 History of arthroscopy of right shoulder RCR x2 History of cataract surgery bilateral History of hip replacement left History of total bilateral knee replacement (TKR) Pacemaker S/P appendectomy S/P CABG (coronary artery bypass graft) CABG x3 (2009) S/P cystoscopy with ureteral stent placement cystoscopy, ureteronephroscopy, laser litho, stent (04/25/21): LMA#5 iGel at [facility] S/P placement of cardiac pacemaker 2020 Status post laser lithotripsy of ureteral calculus 02/2019 Status post right foot surgery right foot debridement for MRSA Past Anesthesia History No Hx of Anesthesia Complications and No Family Hx of Anesthesia Complications History of PONV No Hx of PONV and No Hx of Motion Sickness Social History Smoking Status: Never smoker Do You Dip or Chew Tobacco: No Hx Alcohol Use: Yes Alcohol type: hard liquor alcohol intake frequency: a few times a month Hx Substance Use: No substance use type: does not use Review of Systems Patient denies chest pain, shortness of breath, dyspnea on exertion, fever, chills, cough, wheezing, palpitations. Physical Exam Vital Signs VITALS BP 116/75 P 61 TEMP 97.8 SP02 97%RA RESP 16 PHYSICAL Mildly decreased cervical extension range of motion. Full TMJ range of motion. TMD 4 finger breaths Mallampati Score 1 Dentition: intact, + cap (right lower side) Lungs: clear throughout to auscultation Cardiac: regular rate and rhythm, distant heart sounds Spine: normal Carotid arteries: negative bruit Extremities: no LE edema Lab Results Anesthesia Preop Results Results Anesthesia Widget: PTT 32.6 Seconds (21.0-31.0) H 01/04/23 HA1c 9.0 % (4.5-5.6) H 01/04/23 Urine Color Yellow 01/04/23 Urine Appearance Clear (Clear) 01/04/23 Urine pH 6.0 (4.5-7.5) 01/04/23 Urine Specific [place] 1.024 (1.000-1.030) 01/04/23 Urine Protein Negative (Negative) 01/04/23 Urine Glucose (UA) Negative (Negative) 01/04/23 Urine Ketones Negative (Negative) 01/04/23 Urine Blood Negative (Negative) 01/04/23 Urine Nitrite Negative (Negative) 01/04/23 Urine Bilirubin Negative (Negative) 01/04/23 Urine Urobilinogen Negative (Negative) 01/04/23 Urine Leukocyte Esterase Negative (Negative) 01/04/23 Blood Type O Positive 01/04/23 Antibody Screen NEGATIVE 01/04/23 Testing Laboratory Results *Loren at surgeon's office made aware of elevated A1C* 01/03/23 WBC 8.36 H/H 12.4/39.0 PLATELETS 187 SODIUM 137 POTASSIUM 4.7 CHLORIDE 101 CO2 26 BUN 17 CREATININE 0.9 GLUCOSE 178 PT 19.2 INR 1.6 Electrocardiogram Date: 01/04/23 Ventricular paced rhythm with occasional PVCs at 64 bpm. Chest X-Ray Date: 01/04/23 FINDINGS: PA and lateral chest radiographs are compared to study dated 05/13/2021 and correlated with chest CT dated 12/08/2019. The patient is status post midline sternotomy. Epicardial leads are in place. A 2-lead cardiac pacemaker is unchanged position and partially obscures the left upper chest. The heart is enlarged and noting atherosclerotic calcification of the thoracic aorta. The pulmonary vasculature is noncongested. Indeterminate groundglass lesions seen on 12/08/[address] are not visualized by x-ray. No airspace consolidation or pleural effusion is identified. There is bibasilar scarring/atelectasis. There is no pneumothorax. The skeletal structures are osteopenic. The bony thorax appears intact. A right shoulder arthroplasty is in place. Degenerative change is noted in the thoracic spine. IMPRESSION: Cardiomegaly and cardiac pacemaker without radiographic evidence of congestive failure. No airspace consolidation or pleural effusion is identified. Echocardiogram Date: 07/23/22 LVEF 50-54%. Septal motion consistent with right ventricular pacemaker with localized hypokinesis of the apex. LV wall motion is otherwise normal. Severe LAE. Aortic root and proximal ascending aorta are moderately enlarged (4.3/4.1 cm). Mildly increased concentric LV wall thickness. No significant change compared to 05/10/2020 per report. Stress Test Date: 12/06/17 Type: exercise Stress echo is negative for inducible ischemia Rate controlled atrial fibrillation noted at baseline with ventricular paced QRS complexes. Abnormal septal motion was noted at rest consistent with RV pacemaker activation, the left ventricular wall motion was otherwise normal at rest. Left ventricular EF increased appropriately post exercise, with fixed septal wall motion abnormality consistent with pacemaker activation on postexercise images and appropriate augmentation of the remaining myocardial segments. 81% MPHR. Ventricular pacing was maintained throughout the study. No significant valvular heart disease noted on resting study. RVSP 24 mmHg. Nondiagnostic stress EKG for ischemia due to ventricular paced rhythm that was present during the stress test. Moderate LAE. LVEF 55-59%. Mildly increased concentric wall thickness. 7 METS. Other Testing Pacer check Date: 11/04/22 Medtronic. Mode VVIR. 9.00 years battery longevity. SALES DEPARTMENT MANAGER 97.8%. AP 0%. -VS 2.2%. -SALES DEPARTMENT MANAGER 97.8%. AP-VS 0. AP-SALES DEPARTMENT MANAGER 0%. 3 Nonsustained episodes of which the longest is 1 second with a ventricular rate of 194bpm. "Normal device function" Cervical spine xray Indication: cervicalgia Date: 11/27/22 FINDINGS: No fractures or subluxations are identified. Degenerative changes are noted in the cervical spine. The alignment is anatomic. Prevertebral soft tissues are within normal limits. IMPRESSION: Degenerative changes without evidence of acute abnormality. COVID-19 Risk Screen Screening Information COVID-19 Screen Date: 01/04/23 Exposure 21 Days Family/Household +COVID Last 21 Days: No Exposure 10 Days Any COVID Exposure Last 10 Days: No Symptoms Last 10 Days Experienced COVID Sx Last 10 Days: No + COVID 0-90 Days COVID + in Last 0-90 Days: No
--- NOTE | 2023-01-06 08:58 | History & Physical Report ---
Date of Service January 06, 2023 Assessment & Plan (1) Rotator cuff arthropathy of left shoulder: Plan: Treatment options discussed with the patient. He has failed conservative measures and would like to proceed with surgical intervention. Risks, benefits and alternatives to surgery including but not limited to infection, DVT, pain, stiffness, need for revision surgery, damage to blood vessels, damage to nerves, PE, , were discussed with the patient and they wish to proceed. Plan for left reverse total shoulder arthroplasty at [facility] on January [address] Perez. He will resume his home warfarin postop for DVT prophylaxis. All questions were answered. Patient will follow-up postoperatively. History of Present Illness Chief Complaint: Left shoulder pain Primary Care Provider: LAURA Prabhakar 67-year-old male with past medical history significant for A-fib, hypertension, high cholesterol, diabetes, CAD status post bypass surgery, prostate cancer, pacemaker who presents with ongoing left shoulder pain. Pain is interfering with his daily activities. He has failed conservative measures and would like proceed with surgical invention. Patient denies headaches, sweats, fevers, chills, double vision, blurred vision, cough, sore throat, dysphagia, chest pain, sob, wheezing, n/v/d/c, numbness, tingling, fatigue, urinary symptoms, mood disorders. ROS positive for left shoulder pain and stiffness. Allergies Allergy/AdvReac Type Severity Reaction Status Date / Time No Known Allergies Allergy Verified 01/01/23 11:44 Home Medications Medication Instructions Recorded Confirmed Type aspirin 81 mg tablet,delayed 81 mg PO QAM 06/26/18 01/01/23 History release metoprolol succinate 25 mg 25 mg PO QAM 06/26/18 01/01/23 History tablet,extended release 24 hr ascorbic acid (vitamin C) 500 mg 500 mg PO BID 01/09/21 01/01/23 History capsule atorvastatin 40 mg tablet 40 mg PO HS #90 tabs 05/27/21 01/01/23 Rx zinc 50 mg tablet 50 mg PO HS 07/10/21 01/01/23 History losartan 50 mg tablet 50 mg PO QAM 09/21/21 01/01/23 History warfarin 5 mg tablet See Rx Instructions .Route .COMPLEX 09/21/21 01/01/23 History cholecalciferol (vitamin D3) 25 25 mcg PO QAM 06/26/22 01/01/23 History mcg (1,000 unit) capsule sitagliptin phos 50 mg-metformin 1 tab PO BID #180 tabs 08/27/22 01/01/23 Rx ER 1,000 mg tablet,extend rel 24h mp (Janumet XR) tamsulosin 0.4 mg capsule 0.4 mg PO HS #90 caps 08/27/22 01/01/23 Rx dulaglutide 0.75 mg/0.5 mL 1.5 mg subcut .COMPLEX #6 mL 10/25/22 01/01/23 Rx subcutaneous pen injector (Trulicity) Past Med/Surg History Medical History SUE (acute kidney injury) Hx 2020 CAD (coronary artery disease) CABG x3 (2009) Diabetes mellitus, type 2 NIDDM Diabetic peripheral neuropathy associated with type 2 diabetes mellitus Diverticulosis of colon Generalized weakness Situational/associated with the lupron injection every 3 months Gout hx History of COVID-19 2020- mild symptoms (during kidney stone and sepsis treatments) > resolved History of myocardial infarction > CABG x3 (2009) Hx MRSA infection right foot infection in 2020 - no recent issues Intracanalicular fibroadenoma per records, patient unaware Kidney stones hx Obesity ALISSA (obstructive sleep apnea) no device, "mild" 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 Murillo "last checked within the last several months" Paroxysmal atrial fibrillation per cardiology records, patient unaware Prostate cancer s/p radiation and seed now on lupron injections q3 months Sciatica Sepsis 2020 -- treated at [facility] r/t kidney stones and uretral stent Surgical History H/O prostate biopsy History of arthroplasty of right shoulder History of arthroscopy of left shoulder RCR x2 History of arthroscopy of right shoulder RCR x2 History of cataract surgery bilateral History of hip replacement left History of total bilateral knee replacement (TKR) Pacemaker S/P appendectomy S/P CABG (coronary artery bypass graft) CABG x3 (2009) S/P cystoscopy with ureteral stent placement cystoscopy, ureteronephroscopy, laser litho, stent (04/25/21): LMA#5 iGel at [facility] S/P placement of cardiac pacemaker 2020 Status post laser lithotripsy of ureteral calculus 02/2019 Status post right foot surgery right foot debridement for MRSA Family History Unknown Prostate cancer self Father Diabetes Myocardial infarction Other No family history of adverse response to anesthesia Denies family history of Ovarian cancer Breast cancer Colorectal cancer Social History Smoking Status: Never smoker Second Hand Exposure: No; Do You Dip or Chew Tobacco: No; Hx Alcohol Use: Yes Alcohol type: hard liquor Alcohol Intake Frequency: Monthly or Less Hx Substance Use: No Preferred Language: Kittitian Communication Ability: Effective Visual Impairment: Limited Hearing Ability: Normal Bank Secrecy Act Officer Required: No Beliefs That Will Affect Care: None marital status: / Current Living Situation: Alone current occupational status: retired How many Children do You have: 2 How many Children do You have Comment: local and able to assist as needed Feels Safe at Home: Yes Childhood Exposure to Second-Hand Smoke: No Diet: low carbohydrate and regular caffeine: Yes Dental Care, Regularly: Yes Physical Activity Frequency: Does not Exercise Seatbelt Use: always Sunscreen Use: No Do you think of yourself as: straight/heterosexual Gender Identity: Male Assistive Devices: Glasses Review of Systems All systems reviewed & are unremarkable except as noted in HPI & below Physical Exam Constitutional: well developed and well nourished; no acute distress Eyes: PERRL, conjunctivae normal, anicteric sclerae ENMT: external ear and nose normal, oropharynx normal Neck: trachea midline, no thyromegaly Respiratory: normal respiratory effort, lungs clear to auscultation Cardiovascular: RRR, no murmur, no edema Musculoskeletal: Left shoulder: There is mild to moderate ecchymosis present. Crepitation is mild. Positive impingement signs. Right shoulder range of motion: External rotation about 45 degrees, forward flexion to 120 degrees, abduction of 90 degrees. There is pain and weakness with strength testing. Skin: no rashes, warm and dry Neurologic: patellar DTR's 2+ bilat, sensation intact Psychiatric: A+Ox3, euthymic affect Results & Data Diagnostic Findings Left shoulder radiographs demonstrate proximal migration humerus. Patient has mild arthritic changes glenohumeral joint with joint space narrowing and periarticular osteophytes. MRI from 2 years ago demonstrates massive full- thickness tear of his rotator cuff with significant retraction.
[~2023-01-31 08:37] MED LIST changes: -ACET1TAB84 PO; +ACETAMINOPHEN 500 MG TAB PO SCH; -AMLO2.5T PO; -ASPI81TA28 PO; -ATOR-24 PO; +BUPIVACAINE 0.5 % 5 MG/1 ML PF 10ML VIAL ONE; -CALC-342 PO; -CHOL1000 PO; -CMD5 PO; +CeleBREX 200 MG CAP PO SCH; +DEXAMETHASONE SOD INJ 4 MG/ML VIAL ONE; -DGRI80 IM; +FAMOTIDINE 20 MG TAB PO SCH; -GABA-112 PO; +GABAPENTIN 300 MG CAP PO SCH; -GLIP-199 PO; -INDO-22 PO; +LIDOCAINE 2% 2 ML VIAL/AMP(20MG/ML) INFIL ONE; +LR 15ML/HR IV SCH; -METF500T5 PO; +METOCLOPRAMIDE HCL 10 MG TABLET PO SCH; +MIDAZOLAM HCL 1 MG/ML 2ML VIAL ONE; +ONDANSETRON INJ 2 MG/ML 2 ML VIAL ONE; +PROPOFOL IV EMULSION 10 MG/ML 20 ML VIAL IV ONE; -QUIN40TA18 PO; +ROCURONIUM BROMIDE 10 MG/ML 5 ML VIAL IV ONE; -SITA100T3 PO; -TAMS0.4C38 PO; +TRANEXAMIC ACID 1,000 MG **IV Intra-op IV SCH; +TRANEXAMIC ACID 1,000 MG **IV Pre-op IV SCH; -WARF-237 PO; +ceFAZolin 2000MG 2,000 MG/15 ML SYR IV SCH; +fentaNYL citrate PF 100 MCG/2 ML VIAL ONE
--- NOTE | 2023-01-31 09:34 | History & Physical Bridge Note ---
Date of Service January 31, 2023 History & Physical Bridge Note I have examined the patient, reviewed the History & Physical and in the interval since the performance of the History & Physical I have noted the following changes of clinical significance: no changes noted
[2023-01-31 09:40] LABS: INR 1.2 (0.9-1.1); Partial Thromboplastin Time 28.9 Seconds (21.0-31.0); Prothrombin Time 13.5 Seconds (9.0-12.0)
[2023-01-31] MEDS ORDERED: ePHEDrine sulfate 50 MG/ML AMP IV PRN (10:21)
[2023-01-31] MEDS ORDERED: FLUMAZENIL 0.1 MG/1 ML 10 ML VIAL IV PRN (10:21)
[2023-01-31] MEDS ORDERED: ATROPINE SULFATE 0.1 MG/ML 10ML SYR IV PRN (10:21)
[2023-01-31] MEDS ORDERED: PROMETHAZINE HCL 12.5 MG in SODIUM CHLORIDE 0.9% 50 ML IV PRN (10:21)
[2023-01-31] MEDS ORDERED: LABETALOL HCL IV 5 MG/ML 20ML IV PRN (10:21)
[2023-01-31] MEDS ORDERED: HYDROmorphone INJ 1 MG/ML SYRINGE IV PRN (10:21)
[2023-01-31] MEDS ORDERED: ONDANSETRON INJ 2 MG/ML 2 ML VIAL IV PRN ×2 (10:21→16:50)
[2023-01-31] MEDS ORDERED: NALOXONE HCL 0.4 MG/1 ML VIAL/CARP IV PRN ×2 (10:21→16:50)
[2023-01-31] MEDS ORDERED: fentaNYL citrate PF 100 MCG/2 ML VIAL IV PRN (10:21)
[2023-01-31] MEDS ORDERED: PHENYLEPHRINE 100MCG/ML 5ML SYR ONE (11:50)
[2023-01-31] MEDS ORDERED: ePHEDrine sulfate 50 MG/ML AMP ONE (12:14)
[2023-01-31] MEDS ORDERED: ROCURONIUM BROMIDE 10 MG/ML 5 ML VIAL IV ONE ×5 (12:16→13:53)
[2023-01-31] MEDS ORDERED: SUGAMMADEX SODIUM 200 MG/2 ML VIAL IV ONE (12:34)
--- NOTE | 2023-01-31 15:06 | Operative Report ---
Post Operative Report Pre & Post Diagnosis Operation Date: 01/31/23 11:00 Pre-Op Diagnosis: Left shoulder Rotator Cuff Tear Arthropathy, chronic rotator cuff tear failed prior rotator cuff repair. Post-Op Diagnosis: Same including chronic biceps tendon rupture retained suture material from prior failed rotator cuff repair glenohumeral osteoarthritis I identified the patient and participated in the time-out.: Yes Procedure Operation Date: 01/31/23 11:00 Actual Procedures p Left Total Shoulder Arthroplasty Reverse, excisional Debridement of Suture Material(Left) - Rusty Perez MD Surgeon Rusty Perez MD Aircraft Pneudraulic Systems Mechanic Claudio KAY Estimated Blood Loss 125 Findings Consistent with Post-Op Diagnosis Specimens humeral head Drains 2 Hemovac Anesthesia Type General Regional Complications none Disposition Disposition: Recovery Room Indications 67-year-old male with remote history of rotator cuff repair in the past with failed rotator cuff repair rotator cuff arthropathy [place] 3-4 level of arthritic changes with acetabular station of the acromion process [id number] articulation there. Description of Procedure The patient was taken to the operating room and anesthetized under regional block and general anesthetic. The patient was positioned on the operating table in a 30 beach chair position with a towel roll under the medial border of the[ Left] scapula. The arm was draped free to be able to manipulate the shoulder as needed. The[ left] upper extremity was prepped and draped in usual sterile fashion. Exam demonstrated[ passive motion 150 degrees flexion 90 degrees AB duction and 60 degrees external rotation]. An anterior deltopectoral approach was performed. A longitudinal incision was made in the deltopectoral interval. The skin was incised sharply. Subcutaneous flaps were elevated off the fascia. The cephalic vein was dissected out and retracted lateral with the deltoid. The clavipectoral fascia was divided at the lateral margin of the conjoined tendon and extended up to the CA ligament. The following findings were noted[ there was scar tissue from old surgery and scarr ed clavipectoral fascia. There was no subscapularis tendon and this was torn and retracted medially and there was thin poor residual inferior capsule but no anterior capsule either. This extended into massive rotator cuff tear extending back to the teres minor with no meaningful rotator cuff tissue at all. There was [id number] articulation between humeral head and the acromion and there were large osteophytes around the humeral head and a very large humeral head.. some inferior circumflex vessels were tied off with silk ties and divided laterally. The retractor was placed between the capsule and humeral head and a thin capsular tissue was subperiosteally dissected inferiorly exposing the osteophytes. retractors were readjusted and the inferior osteophytes were all resected using an artist chisel. A Richardson elevator was used to assist in releasing the capsule of the neck of the humerus. A Fukuda retractor was placed into the joint retracting the humeral head posterior. Glenoid findings demonstrated[ Large osteophytes circumferentially around the glenoid with some central glenoid wear with exposed bone on the glenoid. There was a very large posterior superior osteophyte causing impingement with rotation.]. TheResidual labrum was resected.. an anterior-inferior and posterior inferior capsular release were performed with electrocautery and a Richardson elevator on bone with the axillary nerve protected inferiorly by the retractor. Attention was then taken to the humeral preparation. first the old torn sutures were Excised with a rongeur and osteophytes around that area were debrided.. There did not appear to be any anchors that were impeding the procedure. The cutting guide was placed into the humeral head. It was positioned at 20 of retroversion. Oscillating saw was used to resect the humeral head giving the cut above the level of the posterior rotator cuff insertion site. The humerus was then prepared for the stem. I used the ascend flex stem from [facility]. The sizing broaches were used followed by trial broaches up to a size[ 4B long] which had the appropriate fit and fill. The appropriate sized cut protector was placed. The humerus was then retracted posterior to the glenoid. The glenoid was sized for a[ 29 baseplate]. I debrided osteophytes around the glenoid first and remove the large posterior superior osteophyte with an osteotome in order to be able to place the placed plate guide in position appropriately. The guide for the baseplate was positioned in a 10 inferior tilt and the central drill hole was made. The reamer for the[ 29] baseplate was used. The central drill was widened for the peg. The[ aequalis hydroxyapatite-coated 29 mm standard post] baseplate was impacted into position. The base plate was transfixed with superior and inferior locking screws and anterior and posterior compression screws with stable fixation. The fan reamer was used for the [ 42] millimeter glenoid sphere. we cannot get enough separation from the humerus and the glenoid to place the implant in place so I had to reexposed the humerus remove the implant resect 3 more millimeters of bone with the oscillating saw we broach and heather nsized the stem to a 3 replaced on the cut protector and with placement of longitudinal traction and readjusting of retractors I was able to gain exposure and separation and then After irrigation the[ 42 mm symmetrical] glenoid sphere was impacted onto the baseplate and the security screw was tightened. Attention was taken back to the humerus. The cut protector was removed and the[ +0 high offset] humeral tray trial was assembled to the trial stem rotated appropriately to get bony coverage and then screwed in position. A trial reduction was performed. A[ +9, 42 mm reversed] trial insert demonstrated good stability and no shuck. The trials were removed. The canal was irrigated with antibiotic solution with bacitracin. The final component was assembled. The final component was [ 3B long ascend flex PTC stem assembled to the plus or high offset tray with a +9, 42 mm reversed polyethylene insert]. This was then impacted into the humerus after placing some cancellous bone around the metaphysis to ensure a tight press-fit. It was reduced to the glenoid sphere. Stability was verified. The pectoralis was repaired with #2 FiberWire [id number] sutures reinforcing the biceps tendon tenodesis. The arm was taken through a range of motion which demonstrated 150 degrees forward flexion 90 degrees AB duction and 60 degrees external rotation without any tension on repair. The implant was stable through the range of motion tested. The wound was copiously irrigated. 2 Hemovac drains were placed. The deltopectoral interval was closed with [id number] #1 Vicryl sutures. The subcutaneous tissues were closed with 2-0 Vicryl sutures. The skin was closed with[ jerman]. Sterile dressings were applied and a shoulder immobilizer.[ Claudio Torres] My physician speech language pathology assistant acted as miller first throughout the procedure .He performed functions including patient positioning, arm positioning, prepping and draping, soft tissue retraction, instrument management, suture management and performed the subcutaneous and skin closure and will participate in the postoperative care of the patient. I attest to the content of the Intraoperative Record and any orders documented therein. Any exceptions are noted below.
--- NOTE | 2023-01-31 15:43 | Anesthesiology Progress Note ---
Date of Service January 31, 2023 Anesthesia Post Procedure Vital Signs Vital Signs: Temp Pulse Resp BP Pulse Ox O2 Del Method O2 Flow Rate 01/31/23 15:35 60 16 119/73 98 Oxymask 2 01/31/23 15:25 60 18 118/66 100 Oxymask 2 01/31/23 15:15 60 16 125/69 100 Oxymask 2 01/31/23 15:05 60 15 117/71 96 Oxymask 4 01/31/23 14:56 36.3 C L 60 12 132/75 94 Oxymask 6 01/31/23 09:07 36.8 C 81 20 156/92 H 97 Room Air Transfer of Care Handoff Completed per policy Notes Mental Status: alert / awake / arousable Patient Amnestic to Procedure: Yes Nausea / Vomiting: adequately controlled Pain: adequately controlled Airway Patency, RR, SpO2: stable & adequate BP & HR: stable & adequate Hydration State: stable & adequate Anesthetic Complications: no major complications apparent
--- NOTE | 2023-01-31 15:59 | XRay Report ---
LEFT SHOULDER 2 VIEWS CLINICAL HISTORY: Postoperative examination. FINDINGS: 2 portable views of the left shoulder are obtained. A left shoulder arthroplasty is in near anatomic alignment. No acute fracture is seen. Skin clips, subcutaneous gas, a surgical drain, and s oft tissue swelling around the shoulder are expected postsurgical changes. Productive degenerative ch e[place]ene and widening is seen at the acromioclavicular joint. A cardiac pacemaker is in place. The visual ized left lung parenchyma appears clear noting basilar atelectasis. IMPRESSION: Expected postsurgical findings status post left shoulder arthroplasty. No acute fracture is seen. Electronically signed by: Tommy Hoover M.D. 01/31/2023 3:57 PM
[2023-01-31] MEDS ORDERED: MAGNESIUM HYDROXIDE SUSP 30 ML UDC PO PRN (16:50)
[2023-01-31] MEDS ORDERED: PHARMACY GLYCEMIC MGMT CONSULT PRN (16:50)
[2023-01-31] MEDS ORDERED: WARFARIN SOD 5 MG TAB PO SCH (16:50)
[2023-01-31] MEDS ORDERED: METOCLOPRAMIDE HCL INJ 5 MG/ML 2 ML VIAL IV PRN (16:50)
[2023-01-31] MEDS ORDERED: bisacodyL 10 MG SUPP PR PRN (16:50)
[2023-01-31] MEDS ORDERED: HYDROmorphone INJ 0.5 MG/0.5 ML SYR IV PRN (16:50)
--- NOTE | 2023-01-31 17:06 | Hospitalist Consultation ---
Date of Consultation January 31, 2023 Assessment & Plan (1) Status post total replacement of left shoulder: -Currently stable -Pain control, perioperative abx, DVT PPX, and IV fluids per the primary team -Agree with am labs in the morning, adding on an INR, we will follow -Adding daily famotidine for stress ulcer prophylaxis -Thank you for allowing us to participate in the care of this patient, please reach out with any questions or concerns -Medicine will continue to follow (2) Atrial fibrillation: -Currently in NSR -Warfarin has been held for the past 4 days. Patient states that he was supposed to take 10 mg today and tomorrow then resume his typical 5 mg daily dosing on post-op day #2 >Was ordered 5 mg daily by the primary team >INR 1.2 earlier today >Due to balancing bleeding risk with daily stroke risk, we think it is reasonable to continue with the 5 mg daily dosing as he is also on daily aspirin >Monitor daily INR tomorrow, can increase dose if needed -Continue Metoprol (3) Diabetes mellitus: -Pharmacy glycemic consult placed with orders already in -Patient was given 20 units of SQ lantus approximately 10 mini prior to consult per chart review -Continue to follow pharmacy's recommendations (4) BPH NOS w ur obs/LUTS: -Continue flomax (5) Hypertension: -Stable -Agree with restarting Losartan tomorrow as long as he is hemodynamically stable and renal function is stable (6) Dyslipidemia: -Continue statin (7) CAD (coronary artery disease): -Hx of CABG X 3 but no previous DOUGLAS placement -Continue daily aspirin for CAD and PAD -Continue metoprolol Plan The patient was discussed with Dr. Johnson at the time of the consult. Supervising Physician Co-Signing Physician Notes I personally saw and examined the patient. I verified all kiser points and agree with Jairo Díaz PA-C with the following exceptions and/or additions: 67 year old POD#0 left total shoulder arthroplasty. EBL 125ml. O/E A&Ox3, HS RRR, no murmurs, Chest CTAB, Abdo SNT A/P VTE/Pain/Bowel regiment by primary orthopedic team A. fib - warfarin 10mg today, repeat INR tomorrow for ongoing dosing HTN - continue metoprolol, given current BP measurements will hold losartan for at least 1 more day post operatively History of Present Illness Reason for Consultation: Post-op medical management Requesting Physician: Rusty Perez MD Attending Physician: Dr. Delfino Johnson History of Present Illness Renzo is a 67 year old male with a PMH significant for prostate cancer status post radiation with recurrence, currently on androgen deprivation therapy, SSS S/P Pacemaker placement, afib on Warfarin, CAD s/p CABG x 3, HTN, ALISSA, and DMII who presented to the [facility] OR on 01/31 for routine Left Total Shoulder Arthroplasty Reverse with Dr. Perez. Per review of vitals, the patient has been stable. Per the operative report, anesthesia was listed as [facility]", EBL was listed as 125 cc, and there were no reported intraoperative complications. At the time of the exam the patient was resting in bed in no acute distress with his sister sitting bedside. He is currently feeling tired after his procedure but is without other complaints. He confirms that he has been hold his Warfarin for the past 4 days but has still been taking 81 mg aspirin daily with his last dose this am. He also took his am dose of metoprolol today. He does not wear a CPAP mask at night. He denies current fever, chills, chest pain, SOB, abd pain, nausea, vomiting, diarrhea, dysuria, hematuria, melena, and recent trauma. Of note, he tells me that he typically takes 5 mg of Warfarin daily. He states that he was given instructions (which are at home) which recommend him restarting the Warfarin today at 10 mg, then 10 mg tomorrow, then resume his normal 5 mg daily dosing. He follows with [facility]. Please refer to Dr. Johnson's attestation for any changes to the treatment plan Allergies Allergy/AdvReac Type Severity Reaction Status Date / Time No Known Allergies Allergy Verified 01/31/23 09:11 Home Medications Medication Instructions Recorded Confirmed Type aspirin 81 mg tablet,delayed 81 mg PO QAM 06/26/18 01/31/23 History release metoprolol succinate 25 mg 25 mg PO QAM 06/26/18 01/31/23 History tablet,extended release 24 hr ascorbic acid (vitamin C) 500 mg 500 mg PO BID 01/09/21 01/31/23 History capsule atorvastatin 40 mg tablet 40 mg PO HS #90 tabs 05/27/21 01/31/23 Rx zinc 50 mg tablet 50 mg PO HS 07/10/21 01/31/23 History losartan 50 mg tablet 50 mg PO QAM 09/21/21 01/31/23 History warfarin 5 mg tablet See Rx Instructions .Route .COMPLEX 09/21/21 01/31/23 History cholecalciferol (vitamin D3) 25 25 mcg PO QAM 06/26/22 01/31/23 History mcg (1,000 unit) capsule sitagliptin phos 50 mg-metformin 1 tab PO BID #180 tabs 08/27/22 01/31/23 Rx ER 1,000 mg tablet,extend rel 24h mp (Janumet XR) tamsulosin 0.4 mg capsule 0.4 mg PO HS #90 caps 08/27/22 01/31/23 Rx dulaglutide 0.75 mg/0.5 mL 1.5 mg subcut .COMPLEX #6 mL 10/25/22 01/31/23 Rx subcutaneous pen injector (Trulicity) acetaminophen 500 mg tablet 1,000 mg PO Q8 14 days #84 tabs 02/01/23 Rx (Tylenol Extra Strength) cefadroxil 500 mg capsule 500 mg PO BID #14 caps 02/01/23 Rx oxycodone 5 mg tablet 5 mg PO Q4H PRN pain #30 tabs 02/01/23 Rx polyethylene glycol 3350 17 gram 17 g PO DAILY PRN constipation #5 02/01/23 Rx oral powder packet (Miralax) ea Patient History Medical History SUE (acute kidney injury) Hx 2020 CAD (coronary artery disease) CABG x3 (2009) Diabetes mellitus, type 2 NIDDM Diabetic peripheral neuropathy associated with type 2 diabetes mellitus Diverticulosis of colon Generalized weakness Situational/associated with the lupron injection every 3 months Gout hx History of COVID-19 2020- mild symptoms (during kidney stone and sepsis treatments) > resolved History of myocardial infarction > CABG x3 (2009) Hx MRSA infection right foot infection in 2020 - no recent issues Intracanalicular fibroadenoma per records, patient unaware Kidney stones hx Obesity ALISSA (obstructive sleep apnea) no device, "mild" 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 Murillo "last checked within the last several months" Paroxysmal atrial fibrillation per cardiology records, patient unaware Prostate cancer s/p radiation and seed now on lupron injections q3 months Sciatica Sepsis 2020 -- treated at [facility] r/t kidney stones and uretral stent Surgical History (Updated 01/31/23 @ 17:44 by Jairo Díaz PA-C) H/O prostate biopsy History of arthroplasty of right shoulder History of arthroscopy of left shoulder RCR x2 History of arthroscopy of right shoulder RCR x2 History of cataract surgery bilateral History of hip replacement left History of total bilateral knee replacement (TKR) Pacemaker S/P appendectomy S/P CABG (coronary artery bypass graft) CABG x3 (2009) S/P cystoscopy with ureteral stent placement cystoscopy, ureteronephroscopy, laser litho, stent (04/25/21): LMA#5 iGel at [facility] S/P placement of cardiac pacemaker 2020 Status post laser lithotripsy of ureteral calculus 02/2019 Status post right foot surgery right foot debridement for MRSA Family History Unknown Prostate cancer self Father Diabetes Myocardial infarction Other No family history of adverse response to anesthesia Denies family history of Ovarian cancer Breast cancer Colorectal cancer Social History Smoking Status: Never smoker Second Hand Exposure: No; Do You Dip or Chew Tobacco: No; Tobacco Cessation Education Requested by Patient: No Hx Alcohol Use: Yes Alcohol type: hard liquor Alcohol Intake Frequency: Monthly or Less Hx Substance Use: No Preferred Language: Spanish Communication Ability: Effective Visual Impairment: Limited Hearing Ability: Normal 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 Required: No Beliefs That Will Affect Care: None marital status: / Current Living Situation: Alone current occupational status: retired How many Children do You have: 2 How many Children do You have Comment: local and able to assist as needed Other Information That Helps Us Care for You: No Feels Safe at Home: Yes Safety Concerns: Feels Safe At This Time Childhood Exposure to Second-Hand Smoke: No Diet: low carbohydrate and regular caffeine: Yes Dental Care, Regularly: Yes Physical Activity Frequency: Does not Exercise Seatbelt Use: always Sunscreen Use: No Do you think of yourself as: straight/heterosexual Gender Identity: Male Assistive Devices: Glasses Physical Exam Physical Exam: Physical Exam: General: In no acute distress, stated age, well-nourished, good hygiene HEENT: Normocephalic, atraumatic, no scleral icterus, pupils around round, symmetrical, and reactive to light, moist mucus membranes, trachea midline, no thyromegaly Chest/Pulm: Pacemaker located in the left upper chest without signs of infection, No respiratory distress, symmetrical chest expansion, clear breath sounds throughout Cardiac: RRR, no murmurs noted Abdomen: Negative for ascites and bruising, normoactive bowel sounds, soft, non-tender to palpation throughout Musculoskeletal: LUE currently wrapped and with sling applied, no signs of active bleeding, patient with intact motor function of the BL hands Extremities: Radial, dorsalis pedis, and posterior tibial pulses are intact and symmetrical, no edema noted in the BL LE's Skin: Warm, dry, no rashes , lesions, or scars noted Neuro: Alert and oriented to person, place, month, year, and president, no focal defects, no tremors noted Psych: No acute distress, calm and cooperative during the exam Results & Data Results & Data Vital Signs (Past 12 Hours) Vital Signs Temp Pulse Pulse Resp BP Pulse Ox O2 Del Method 01/31/23 16:30 36.7 C 60 12 148/82 H 2 L Nasal Cannula 01/31/23 16:05 60 14 132/73 93 Nasal Cannula 01/31/23 16:15 60 14 134/73 96 Nasal Cannula 01/31/23 15:55 36.6 C 60 21 116/76 97 Nasal Cannula 01/31/23 15:45 60 18 125/71 95 Nasal Cannula 01/31/23 15:35 60 16 119/73 98 Oxymask 01/31/23 15:25 60 18 118/66 100 Oxymask 01/31/23 15:15 60 16 125/69 100 Oxymask 01/31/23 15:05 60 15 117/71 96 Oxymask 01/31/23 14:56 36.3 C L 60 12 132/75 94 Oxymask 01/31/23 09:07 36.8 C 81 20 156/92 H 97 Room Air O2 Flow Rate 01/31/23 16:30 01/31/23 16:05 2 01/31/23 16:15 2 01/31/23 15:55 2 01/31/23 15:45 2 01/31/23 15:35 2 01/31/23 15:25 2 01/31/23 15:15 2 01/31/23 15:05 4 01/31/23 14:56 6 01/31/23 09:07 Laboratory Results Abnormal lab results 01/31/23 01/31/23 01/31/23 Range/Units 08:54 09:12 14:59 PT 13.5 H (9.0-12.0) Seconds INR 1.2 H (0.9-1.1) POC Glucose 163 H 117 H (70-99) mg/dl 01/31/23 Range/Units 17:12 PT (9.0-12.0) Seconds INR (0.9-1.1) POC Glucose 154 H (70-99) mg/dl Diagnostic Findings Shoulder X-Ray 01/31/23 14:55 LEFT SHOULDER 2 VIEWS CLINICAL HISTORY: Postoperative examination. FINDINGS: 2 portable views of the left shoulder are obtained. A left shoulder arthroplasty is in near anatomic alignment. No acute fracture is seen. Skin clips, subcutaneous gas, a surgical drain, and soft tissue swelling around the shoulder are expected postsurgical changes. Productive degenerative change and widening is seen at the acromioclavicular joint. A cardiac pacemaker is in place. The visualized left lung parenchyma appears clear noting basilar atelectasis. IMPRESSION: Expected postsurgical findings status post left shoulder arthroplasty. No acute fracture is seen. Electronically signed by: Tommy Hoover M.D. 01/31/2023 3:57 PM PG Care Time/CCT Total # of Minutes Spent Total Time Spent with Patient: Total time spent is greater than 50% in coordination of care (as documented) at patient's floor/unit and/or counseling patient: Coding [place] [address] IN/OBS CONSULT LVL 4,60M Patient Type Established Medical Decision Making High Complexity Diagnoses Status post total replacement of left shoulder Z96.612 Atrial fibrillation I48.91 Diabetes mellitus E11.9 BPH NOS w ur obs/LUTS N40.1 Hypertension I10 Hypertension type: essential hypertension Dyslipidemia E78.5 CAD (coronary artery disease) I25.10 (5) Hypertension Hypertension type: essential hypertension Qualified Code(s): I10 - Essential (primary) hypertension
[2023-01-31] MEDS ORDERED: DEXTROSE 50% 50 ML SYRINGE IV PRN (17:15)
[2023-01-31] MEDS ORDERED: GLUCOSE 10 TAB/TUBE PO PRN (17:15)
[2023-01-31] MEDS ORDERED: GLUCOSE 40% GEL 15 GM TUBE PO PRN (17:15)
[2023-01-31] MEDS ORDERED: CARBOHYDRATES FOR HYPOGLYCEMIA PO PRN (17:15)
[2023-01-31] MEDS ORDERED: LANTUS PER UNIT CHARGE SC ONE (17:15)
[2023-01-31] MEDS ORDERED: GLUCAGON FOR INJ 1 MG VIAL IM PRN (17:15)
[2023-01-31] MEDS: SODIUM CHLORIDE 0.9% 1000ML 1,000 ML IV SCH (17:35)
[2023-01-31] MEDS: INSULIN ASPART PER UNIT CHARGE SC SCH ×2 (17:46→21:11)
[2023-01-31] MEDS: ATORVASTATIN 40 MG TAB PO SCH (21:12)
[2023-01-31] MEDS: ceFAZolin 2000MG 2,000 MG/15 ML SYR IV SCH (21:12)
[2023-01-31] MEDS: DOCUSATE SODIUM 100 MG CAP PO SCH (21:12)
[2023-01-31] MEDS: ASCORBIC ACID 500 MG TAB PO SCH (21:13)
[2023-01-31] MEDS: TAMSULOSIN HCL 0.4 MG CAP PO SCH (21:13)
[2023-01-31] MEDS: ZINC SULFATE 220 MG CAPSULE PO SCH (21:13)
[2023-01-31] MEDS: SENNA 8.6 MG TAB PO SCH (21:13)
[2023-01-31] MEDS: ACETAMINOPHEN 500 MG TAB PO SCH (21:14)
[2023-01-31] MEDS ORDERED: WARFARIN SOD 5 MG TAB PO ONE (21:15)
[2023-02-01] MEDS: oxyCODONE HCL IR 5 MG TAB (IMMEDIATE RELEASE) PO PRN ×2 (01:51→20:13)
[2023-02-01] MEDS: ACETAMINOPHEN 500 MG TAB PO SCH ×3 (05:28→20:14)
[2023-02-01] MEDS: ceFAZolin 2000MG 2,000 MG/15 ML SYR IV SCH (05:29)
[2023-02-01] MEDS: SODIUM CHLORIDE 0.9% 1000ML 1,000 ML IV SCH (06:05)
[2023-02-01 06:07] LABS: Basophils # (auto) 0.02 K/uL (0-0.2); Basophils % (auto) 0.3 %; Eosinophils # (auto) 0.15 K/uL (0-0.50); Eosinophils % (auto) 2.2 %; Hematocrit (blood only) 30.9 % (42.0-52.0); Hemoglobin 10.1 g/dl (14.0-18.0); Immature Granulocytes # (auto) 0.04 K/uL (0.01-0.20); Immature Granulocytes % (auto) 0.6 %; Lymphocytes # (auto) 0.81 K/uL (1.2-3.4); Mean Corpuscular Hemoglobin 29.4 pg (25.0-34.0); Mean Corpuscular Hgb Conc 32.7 g/dL (32.0-36.0); Mean Corpuscular Volume 89.8 fL (80.0-100.0); Mean Platelet Volume 10.9 fL (9.4-12.4); Monocytes # (auto) 0.54 K/uL (0.11-0.59); Neutrophils % (auto) 76.9 %; Platelet Count 138 K/uL (130-400); RDW Coefficient of Variation 15.6 % (11.5-14.5); RDW Standard Deviation 50.6 fL (36.4-46.3); Red Blood Count 3.44 M/uL (4.70-6.10); White Blood Count 6.76 K/ul (4.8-10.8)
[2023-02-01 06:26] LABS: BUN Creatinine Ratio 13.5 (10-20); Calcium 8.3 mg/dl (8.6-10.3); Creatinine Clr Calc Pharmacy 95.7 ml/min; Est GFR (African American) 93.1 ml/min; Est GFR (Non-African American) 80.3 ml/min; Potassium 4.1 mmol/L (3.5-5.1)
[2023-02-01 06:37] LABS: INR 1.2 (0.9-1.1)
[2023-02-01] MEDS: CHOLECALCIFEROL 1,000 UNITS 25 MCG TAB PO SCH (08:15)
[2023-02-01] MEDS: ASCORBIC ACID 500 MG TAB PO SCH ×2 (08:15→20:12)
[2023-02-01] MEDS: ASPIRIN 81 MG ECTAB PO SCH (08:15)
[2023-02-01] MEDS: METOPROLOL SUCC 25MG EXT REL TAB PO SCH (08:15)
[2023-02-01] MEDS: MULTIVITAMIN TAB PO SCH (08:16)
[2023-02-01] MEDS: DOCUSATE SODIUM 100 MG CAP PO SCH ×2 (08:16→20:13)
[2023-02-01] MEDS: INSULIN ASPART PER UNIT CHARGE SC SCH ×4 (08:17→21:07)
[2023-02-01] MEDS: FAMOTIDINE 20 MG in SYRINGE 3 ML IV SCH (08:24)
[2023-02-01] MEDS ORDERED: LOSARTAN POTASSIUM 50 MG TAB PO SCH (09:00)
--- NOTE | 2023-02-01 10:14 | Pharmacy Report ---
Pharmacy Glycemic Short Note 2 - Date of Service February 01, 2023 - Glycemic Short BSG Results (Last 24 hours): 01/31/23 01/31/23 01/31/23 14:59 17:12 20:47 Glucose POC Glucose 117 H 154 H 154 H 02/01/23 02/01/23 05:42 08:00 Glucose 154 H POC Glucose 153 H OUTPATIENT ANTIDIABETIC REGIMEN: * Janumet XR mg -1 tab PO BID * Trulicity 1.5 mg SQ weekly - last dose on 01/28/23 HbA1c: 9% on 01/04/23 ASSESSMENT: * 67 y/o M admitted for shoulder surgery yesterday. Today is POD#1. He has history of Type 2 diabetes managed on oral Janumet and and SQ weekly Trulicity at home. His last dose of Trulicity was only four days ago, so this is still working for his diabetes. * A1c indicates diabetes is uncontrolled. * Pharmacy consulted for glycemic management yesterday. Basal dose of 20 units given yesterday evening and Novolog started at dinner based on stress of 2. * Fasting BSG today was 154 mg/dl. Basal dose increased to 25 units at HS * Pre-lunch BSG = 170 mg/dl today. Novolog parameters continued the same. PLAN FOR INPATIENT GLYCEMIC CONTROL: * Hold outpatient oral diabetes medications * Basal insulin * Lantus 20 units SQ x1 given yesterday evening * Lantus 25 units SQ HS ongoing * Bolus insulin * NovoLog per scale ACHS or Q6hrs while NPO * Goal Range: Low 110 mg/dL - High 140 mg/dL * Correction Factor: 20 mg/dL/unit * Nutritional / Prandial insulin per carb ratio of 1 unit per 7 grams CHO consumed
--- NOTE | 2023-02-01 10:18 | Hospitalist Progress Note ---
Date of Service February 01, 2023 Assessment & Plan (1) Status post total replacement of left shoulder: Plan: -Currently stable -Pain control, perioperative abx, DVT PPX, and IV fluids per the primary team -Added famotidine for stress ulcer prophylaxis -Thank you for allowing us to participate in the care of this patient, please reach out with any questions or concerns (2) Atrial fibrillation: Plan: -Currently in NSR -Warfarin has been held for the past 4 days. Patient states that he was supposed to take 10 mg today and tomorrow then resume his typical 5 mg daily dosing on post-op day #2 -Was ordered 5 mg daily by the primary team on 01/31 -INR this AM reviewed, 1.2, will bolus with Coumadin 10mg PO x1 dose today -Resume Coumadin 5mg daily thereafter -Continue Metoprol (3) Diabetes mellitus: Plan: Chronic/uncontrolled -Last a1c 9.0% on 01/04/23 -Pharmacy glycemic consult placed by primary team with orders already in -Patient was given 20 units of SQ lantus approximately 10 mini prior to consult per chart review -Continue to follow pharmacy's recommendations (4) BPH NOS w ur obs/LUTS: Plan: -Continue flomax (5) Hypertension: Plan: -Stable -Agree with restarting Losartan tomorrow as long as he is hemodynamically stable and renal function is stable (6) Dyslipidemia: Plan: -Continue statin (7) CAD (coronary artery disease): Plan: -Hx of CABG X 3 but no previous DOUGLAS placement -Continue daily aspirin for CAD and PAD -Continue metoprolol Plan Patient is doing well post operatively. Recommend higher dose of Coumadin today and then resumption of maintenance dose 5mg daily with f/u PT/INR to be drawn by ideally Saturday. Will sign off as he is stable for discharge from medicine standpoint. Please reach out should any issues arise while he remains in house. Thank you for the consult. Above plan to be d/w Dr. Mijares. Admission and Anticipated Discharge Date Admission Date: January 31, 2023 Supervising Physician Co-Signing Physician Notes The patient was not seen by me. The chart was reviewed. Case discussed with ELIZA Pollack. Agree with assessment and plan Subjective Patient seen on daily rounds this morning. He has no complaints/concerns. He reports that his left shoulder pain is adequately controlled. Denies cp or dyspnea. No n/v/d. Physical Exam Physical Exam: GENERAL: 67 yo Well-developed, well-nourished M. AAOx4. NAD. LUNGS: Clear to auscultation bilaterally w/o W/R/R. CARDIOVASCULAR: Regular rate and rhythm. EXTREMITIES: L shoulder dressed and in immobilizer. Hemovac noted. Radial/ulnar pulses intact. Sensation/motor intact. No edema. Results & Data Results & Data Vital Signs (Past 12 Hours) Vital Signs Temp Pulse Resp BP Pulse Ox O2 Del Method 02/01/23 07:28 36.6 C 60 16 118/68 94 Room Air 02/01/23 03:00 36.7 C 61 16 100/63 98 Room Air 01/31/23 22:59 36.3 C L 61 16 149/85 H 98 Room Air Laboratory Results 02/01/23 05:42 02/01/23 05:42 PG Care Time/CCT Total # of Minutes Spent Total Time Spent with Patient: Total time spent is greater than 50% in coordination of care (as documented) at patient's floor/unit and/or counseling patient: Coding Level of Care Code 29204 SUB INP/OBS CARE 2/35MIN Diagnoses Status post total replacement of left shoulder Z96.612 Atrial fibrillation I48.91 Diabetes mellitus E11.9 BPH NOS w ur obs/LUTS N40.1 Hypertension I10 Hypertension type: essential hypertension Dyslipidemia E78.5 CAD (coronary artery disease) I25.10 (5) Hypertension Hypertension type: essential hypertension Qualified Code(s): I10 - Essential (primary) hypertension
--- NOTE | 2023-02-01 10:18 | Orthopedic Progress Note ---
Date of Service February 01, 2023 Assessment & Plan (1) Rotator cuff arthropathy of left shoulder: Plan: Postop day 1 status post left reverse total shoulder arthroplasty PT/OT protocols. As per reverse total shoulder protocol. Nonweightbearing. DVT prophylaxis- Warfarin, aspirin p.o. daily, SCDs Pain management as written. Discharge planning-plan for home health services upon discharge. Admission and Anticipated Discharge Date Admission Date: January 31, 2023 Subjective Postop day 1 Patient sitting in his chair at the bedside. States that his nerve block is still working but he has been able to start increasing his range of motion of his fingers and wrist. Continues to have a dense sensation decrease in the fingers. States he had a little bit of pain in the elbow area last night but that seems to have resolved this morning. No other complaints. Physical Exam Physical Exam: Dressings are clean, dry, and intact. Sling is in place. He is able to move his fingers fairly well this morning with flexion extension but is somewhat w eak. He is able to go through flexion and extension of his left wrist. He is nontender at the elbow on palpation. Capillary refill is less than 2 seconds. Results & Data Vital Signs (Past 12 Hours) Vital Signs Temp Pulse Resp BP Pulse Ox O2 Del Method 02/01/23 07:28 36.6 C 60 16 118/68 94 Room Air 02/01/23 03:00 36.7 C 61 16 100/63 98 Room Air 01/31/23 22:59 36.3 C L 61 16 149/85 H 98 Room Air Laboratory Results Laboratory Results WBC 6.76 K/ul (4.8-10.8) 02/01/23 05:42 RBC 3.44 M/uL (4.70-6.10) L 02/01/23 05:42 Hgb 10.1 g/dl (14.0-18.0) L 02/01/23 05:42 Hct 30.9 % (42.0-52.0) L 02/01/23 05:42 MCV 89.8 fL (80.0-100.0) 02/01/23 05:42 MCH 29.4 pg (25.0-34.0) 02/01/23 05:42 MCHC 32.7 g/dL (32.0-36.0) 02/01/23 05:42 RDW Std Deviation 50.6 fL (36.4-46.3) H 02/01/23 05:42 RDW Coeff of Suzy 15.6 % (11.5-14.5) H 02/01/23 05:42 Plt Count 138 K/uL (130-400) 02/01/23 05:42 MPV 10.9 fL (9.4-12.4) 02/01/23 05:42 Immature Gran % (Auto) 0.6 % 02/01/23 05:42 Neut % (Auto) 76.9 % 02/01/23 05:42 Lymph % (Auto) 12.0 % 02/01/23 05:42 [place] % (Auto) 8.0 % 02/01/23 05:42 Eos % (Auto) 2.2 % 02/01/23 05:42 Baso % (Auto) 0.3 % 02/01/23 05:42 Neut # (Auto) 5.20 K/uL (1.40-6.50) 02/01/23 05:42 Lymph # (Auto) 0.81 K/uL (1.2-3.4) L 02/01/23 05:42 [place] # (Auto) 0.54 K/uL (0.11-0.59) 02/01/23 05:42 Eos # (Auto) 0.15 K/uL (0-0.50) 02/01/23 05:42 Baso # (Auto) 0.02 K/uL (0-0.2) 02/01/23 05:42 Immature Gran # (Auto) 0.04 K/uL (0.01-0.20) 02/01/23 05:42 PT 13.0 Seconds (9.0-12.0) H 02/01/23 05:42 INR 1.2 (0.9-1.1) H 02/01/23 05:42 APTT 28.9 Seconds (21.0-31.0) 01/31/23 08:54 PTT Ratio 1.0 01/31/23 08:54 Sodium 137 mmol/L (136-145) 02/01/23 05:42 Potassium 4.1 mmol/L (3.5-5.1) 02/01/23 05:42 Chloride 105 mmol/L (98-107) 02/01/23 05:42 Carbon Dioxide 27 mmol/L (21-32) 02/01/23 05:42 Anion Gap 5 (3-11) 02/01/23 05:42 BUN 13 mg/dl (6-23) 02/01/23 05:42 Creatinine 0.96 mg/dl (0.6-1.4) 02/01/23 05:42 Est Cr Clr Drug Dosing 95.7 ml/min 02/01/23 05:42 Est GFR ( Amer) 93.1 ml/min 02/01/23 05:42 Est GFR (Non-Af Amer) 80.3 ml/min 02/01/23 05:42 BUN/Creatinine Ratio 13.5 (10-20) 02/01/23 05:42 Glucose 154 mg/dl (70-99(Fasting)) H 02/01/23 05:42 POC Glucose 153 mg/dl (70-99) H 02/01/23 08:00 Calcium 8.3 mg/dl (8.6-10.3) L 02/01/23 05:42 SARS-CoV-2, RNA, NAAT NEGATIVE (NEGATIVE) 01/31/23 09:00 Impressions Shoulder X-Ray 01/31/23 14:55 LEFT SHOULDER 2 VIEWS CLINICAL HISTORY: Postoperative examination. FINDINGS: 2 portable views of the left shoulder are obtained. A left shoulder arthroplasty is in near anatomic alignment. No acute fracture is seen. Skin clips, subcutaneous gas, a surgical drain, and soft tissue swelling around the shoulder are expected postsurgical changes. Productive degenerative change and widening is seen at the acromioclavicular joint. A cardiac pacemaker is in place. The visualized left lung parenchyma appears clear noting basilar atelectasis. IMPRESSION: Expected postsurgical findings status post left shoulder arthroplasty. No acute fracture is seen. Electronically signed by: Tommy Hoover M.D. 01/31/2023 3:57 PM
[2023-02-01] MEDS ORDERED: WARFARIN SOD 10 MG TAB PO ONE (16:00)
[2023-02-01] MEDS: ATORVASTATIN 40 MG TAB PO SCH (20:13)
[2023-02-01] MEDS: ZINC SULFATE 220 MG CAPSULE PO SCH (20:14)
[2023-02-01] MEDS: SENNA 8.6 MG TAB PO SCH (20:14)
[2023-02-01] MEDS: TAMSULOSIN HCL 0.4 MG CAP PO SCH (20:14)
[2023-02-01] MEDS ORDERED: LANTUS PER UNIT CHARGE SC SCH (21:00)
[2023-02-02] MEDS: oxyCODONE HCL IR 5 MG TAB (IMMEDIATE RELEASE) PO PRN (01:46)
[2023-02-02 06:21] LABS: INR 1.5 (0.9-1.1); Prothrombin Time 16.1 Seconds (9.0-12.0)
[2023-02-02] MEDS: ACETAMINOPHEN 500 MG TAB PO SCH (06:27)
--- NOTE | 2023-02-02 06:30 | Orthopedic Progress Note ---
Date of Service February 02, 2023 Assessment & Plan (1) Rotator cuff arthropathy of left shoulder: Plan: Postop day 2 status post left reverse total shoulder arthroplasty PT/OT protocols. As per reverse total shoulder protocol. Nonweightbearing. DVT prophylaxis- Warfarin, aspirin p.o. daily, SCDs Pain management as written. Discharge planning-plan for d.c home with OPPT when cleared by Dr Perez team Admission and Anticipated Discharge Date Admission Date: January 31, 2023 Supervising Physician Co-Signing Physician Notes Patient seen and examined. Agree with ELIZA Humphreys's note as above. Pain is much better controlled this morning. H/H 10.1/30.9. Motor and sensory function intact in his hand. He is ready to go home today. Subjective Postop day 3 Patient sitting in his chair at the bedside. His pain is currently well controlled, denies numbness tingling Review of Systems Constitutional: no fever and no chills Respiratory: no cough and no dyspnea Cardiovascular: no chest pain, no dyspnea and no orthopnea Gastrointestinal: no abdominal pain, no nausea and no vomiting Physical Exam Physical Exam: Vital Signs Temp 36.5 C 02/01/23 20:09 Pulse 62 02/01/23 20:09 Resp 18 02/01/23 20:09 BP 119/72 02/01/23 20:09 Pulse Ox 96 02/01/23 20:09 O2 Del Method Room Air 02/01/23 20:09 O2 Flow Rate 2 01/31/23 17:31 Intake & Output 02/01/23 02/01/23 02/02/23 06:59 18:59 06:59 Intake Total 1000 / 2400 Output Total 345 / 470 50 / 75 25 / Balance 655 / 1930 -50 / -75 - / 75 Intake: IV 1000 / 1100 Sodium Chlorid e 0.9% 1000ML 1, 1000 / 1000 000 ml @ 100 m ls/hr IV .Q10H JOSEP Rx#:[id number] Output: Urine 250 / 250 Drain Output 95 / 95 50 / 75 25 / 75 Left Shoulder 95 / 95 50 / 75 25 / 75 Other: # Unmeasured Voi ds 450 Musculoskeletal: left upper extremity: Dressing is clean and dry, no erythema or warmth or drai nage noted. Radial median ulnar nerves intact distally radial pulse +2 painless range of motion of the hand wrist and elbow Results & Data Vital Signs (Past 12 Hours) Vital Signs Temp Pulse Resp BP Pulse Ox O2 Del Method 02/01/23 20:09 36.5 C 62 18 119/72 96 Room Air Laboratory Results Laboratory Results WBC 6.76 K/ul (4.8-10.8) 02/01/23 05:42 RBC 3.44 M/uL (4.70-6.10) L 02/01/23 05:42 Hgb 10.1 g/dl (14.0-18.0) L 02/01/23 05:42 Hct 30.9 % (42.0-52.0) L 02/01/23 05:42 MCV 89.8 fL (80.0-100.0) 02/01/23 05:42 MCH 29.4 pg (25.0-34.0) 02/01/23 05:42 MCHC 32.7 g/dL (32.0-36.0) 02/01/23 05:42 RDW Std Deviation 50.6 fL (36.4-46.3) H 02/01/23 05:42 RDW Coeff of Suzy 15.6 % (11.5-14.5) H 02/01/23 05:42 Plt Count 138 K/uL (130-400) 02/01/23 05:42 MPV 10.9 fL (9.4-12.4) 02/01/23 05:42 Immature Gran % (Auto) 0.6 % 02/01/23 05:42 Neut % (Auto) 76.9 % 02/01/23 05:42 Lymph % (Auto) 12.0 % 02/01/23 05:42 Liberty % (Auto) 8.0 % 02/01/23 05:42 Eos % (Auto) 2.2 % 02/01/23 05:42 Baso % (Auto) 0.3 % 02/01/23 05:42 Neut # (Auto) 5.20 K/uL (1.40-6.50) 02/01/23 05:42 Lymph # (Auto) 0.81 K/uL (1.2-3.4) L 02/01/23 05:42 Liberty # (Auto) 0.54 K/uL (0.11-0.59) 02/01/23 05:42 Eos # (Auto) 0.15 K/uL (0-0.50) 02/01/23 05:42 Baso # (Auto) 0.02 K/uL (0-0.2) 02/01/23 05:42 Immature Gran # (Auto) 0.04 K/uL (0.01-0.20) 02/01/23 05:42 PT 16.1 Seconds (9.0-12.0) H 02/02/23 05:40 INR 1.5 (0.9-1.1) H 02/02/23 05:40 APTT 28.9 Seconds (21.0-31.0) 01/31/23 08:54 PTT Ratio 1.0 01/31/23 08:54 Sodium 137 mmol/L (136-145) 02/01/23 05:42 Potassium 4.1 mmol/L (3.5-5.1) 02/01/23 05:42 Chloride 105 mmol/L (98-107) 02/01/23 05:42 Carbon Dioxide 27 mmol/L (21-32) 02/01/23 05:42 Anion Gap 5 (3-11) 02/01/23 05:42 BUN 13 mg/dl (6-23) 02/01/23 05:42 Creatinine 0.96 mg/dl (0.6-1.4) 02/01/23 05:42 Est Cr Clr Drug Dosing 95.7 ml/min 02/01/23 05:42 Est GFR ( Amer) 93.1 ml/min 02/01/23 05:42 Est GFR (Non-Af Amer) 80.3 ml/min 02/01/23 05:42 BUN/Creatinine Ratio 13.5 (10-20) 02/01/23 05:42 Glucose 154 mg/dl (70-99(Fasting)) H 02/01/23 05:42 POC Glucose 165 mg/dl (70-99) H 02/01/23 20:57 Calcium 8.3 mg/dl (8.6-10.3) L 02/01/23 05:42 SARS-CoV-2, RNA, NAAT NEGATIVE (NEGATIVE) 01/31/23 09:00 Impressions Shoulder X-Ray 01/31/23 14:55 LEFT SHOULDER 2 VIEWS CLINICAL HISTORY: Postoperative examination. FINDINGS: 2 portable views of the left shoulder are obtained. A left shoulder arthroplasty is in near anatomic alignment. No acute fracture is seen. Skin clips, subcutaneous gas, a surgical drain, and soft tissue swelling around the shoulder are expected postsurgical changes. Productive degenerative change and widening is seen at the acromioclavicular joint. A cardiac pacemaker is in place. The visualized left lung parenchyma appears clear noting basilar atelectasis. IMPRESSION: Expected postsurgical findings status post left shoulder arthroplasty. No acute fracture is seen. Electronically signed by: Tommy Hoover M.D. 01/31/2023 3:57 PM
[2023-02-02] MEDS: INSULIN ASPART PER UNIT CHARGE SC SCH (08:44)
[2023-02-02] MEDS: MULTIVITAMIN TAB PO SCH (08:45)
[2023-02-02] MEDS: ASCORBIC ACID 500 MG TAB PO SCH (08:45)
[2023-02-02] MEDS: ASPIRIN 81 MG ECTAB PO SCH (08:45)
[2023-02-02] MEDS: DOCUSATE SODIUM 100 MG CAP PO SCH (08:45)
[2023-02-02] MEDS: CHOLECALCIFEROL 1,000 UNITS 25 MCG TAB PO SCH (08:45)
[2023-02-02] MEDS: METOPROLOL SUCC 25MG EXT REL TAB PO SCH (08:46)
[2023-02-02] MEDS ORDERED: LOSARTAN POTASSIUM 50 MG TAB PO SCH (09:00)
[2023-02-02] MEDS: FAMOTIDINE 20 MG in SYRINGE 3 ML IV SCH (09:31)
--- NOTE | 2023-02-05 12:17 | Discharge Summary ---
Date of Service February 05, 2023 Admission HPI Per Admitting Provider 67-year-old male with past medical history significant for A-fib, hypertension, high cholesterol, diabetes, CAD status post bypass surgery, prostate cancer, pacemaker who presents with ongoing left shoulder pain. Pain is interfering with his daily activities. He has failed conservative measures and would like proceed with surgical invention. Patient denies headaches, sweats, fevers, chills, double vision, blurred vision, cough, sore throat, dysphagia, chest pain, sob, wheezing, n/v/d/c, numbness, tingling, fatigue, urinary symptoms, mood disorders. ROS positive for left shoulder pain and stiffness. Admission Exam Per Admitting Provider Constitutional: well developed and well nourished; no acute distress Eyes: PERRL, conjunctivae normal, anicteric sclerae ENMT: external ear and nose normal, oropharynx normal Neck: trachea midline, no thyromegaly Respiratory: normal respiratory effort, lungs clear to auscultation Cardiovascular: RRR, no murmur, no edema Musculoskeletal: Left shoulder: There is mild to moderate ecchymosis present. Crepitation is mild. Positive impingement signs. Right shoulder range of motion: External rotation about 45 degrees, forward flexion to 120 degrees, abduction of 90 degrees. There is pain and weakness with strength testing. Skin: no rashes, warm and dry Neurologic: patellar DTR's 2+ bilat, sensation intact Psychiatric: A+Ox3, euthymic affect Principal Diagnosis Left shoulder rotator cuff arthropathy Discharge Exam Left upper extremity: Dressing is clean and dry, no erythema or warmth or drainage noted. Radial median ulnar nerves intact distally radial pulse +2 painless range of motion of the hand wrist and elbow Discharge Data Allergies Allergy/AdvReac Type Severity Reaction Status Date / Time No Known Allergies Allergy Verified 01/31/23 09:11 Consultations 01/25/23 15:33 Consult Hospitalist Routine Procedures Performed Operation Date: 01/31/23 11:00 Actual Procedures p Left Total Shoulder Arthroplasty Reverse, Debridement of Suture Material(Left) - Rusty Perez MD Ordered Studies 01/31/23 05:00 US - OR guided needle placemen Routine Hospital Course (1) Rotator cuff arthropathy of left shoulder: Postop day 2 status post left reverse total shoulder arthroplasty PT/OT protocols. As per reverse total shoulder protocol. Nonweightbearing. DVT prophylaxis- Warfarin, aspirin p.o. daily, SCDs Pain management as written. Discharge planning-plan for d.c home with OPPT when cleared by Dr Perez team Postop day 1 status post left reverse total shoulder arthroplasty PT/OT protocols. As per reverse total shoulder protocol. Nonweightbearing. DVT prophylaxis- Warfarin, aspirin p.o. daily, SCDs Pain management as written. Discharge planning-plan for home health services upon discharge. Lab Results 01/31/23 01/31/23 01/31/23 Range/Units 08:54 09:00 09:12 WBC (4.8-10.8) K/ul RBC (4.70-6.10) M/uL Hgb (14.0-18.0) g/dl Hct (42.0-52.0) % MCV (80.0-100.0) fL MCH (25.0-34.0) pg MCHC (32.0-36.0) g/dL RDW Std Deviation (36.4-46.3) fL RDW Coeff of Suzy (11.5-14.5) % Plt Count (130-400) K/uL MPV (9.4-12.4) fL Immature Gran % (Auto) % Neut % (Auto) % Lymph % (Auto) % Sabine % (Auto) % Eos % (Auto) % Baso % (Auto) % Neut # (Auto) (1.40-6.50) K/uL Lymph # (Auto) (1.2-3.4) K/uL Sabine # (Auto) (0.11-0.59) K/uL Eos # (Auto) (0-0.50) K/uL Baso # (Auto) (0-0.2) K/uL Immature Gran # (Auto) (0.01-0.20) K/uL PT 13.5 H (9.0-12.0) Seconds INR 1.2 H (0.9-1.1) APTT 28.9 (21.0-31.0) Seconds PTT Ratio 1.0 Sodium (136-145) mmol/L Potassium (3.5-5.1) mmol/L Chloride (98-107) mmol/L Carbon Dioxide (21-32) mmol/L Anion Gap (3-11) BUN (6-23) mg/dl Creatinine (0.6-1.4) mg/dl Est Cr Clr Drug Dosing ml/min Est GFR ( Amer) ml/min Est GFR (Non-Af Amer) ml/min BUN/Creatinine Ratio (10-20) Glucose (70-99(Fasting)) mg/dl POC Glucose 163 H (70-99) mg/dl Calcium (8.6-10.3) mg/dl SARS-CoV-2, RNA, NAAT NEGATIVE (NEGATIVE) 01/31/23 01/31/23 01/31/23 Range/Units 14:59 17:12 20:47 WBC (4.8-10.8) K/ul RBC (4.70-6.10) M/uL Hgb (14.0-18.0) g/dl Hct (42.0-52.0) % MCV (80.0-100.0) fL MCH (25.0-34.0) pg MCHC (32.0-36.0) g/dL RDW Std Deviation (36.4-46.3) fL RDW Coeff of Suzy (11.5-14.5) % Plt Count (130-400) K/uL MPV (9.4-12.4) fL Immature Gran % (Auto) % Neut % (Auto) % Lymph % (Auto) % Sabine % (Auto) % Eos % (Auto) % Baso % (Auto) % Neut # (Auto) (1.40-6.50) K/uL Lymph # (Auto) (1.2-3.4) K/uL Sabine # (Auto) (0.11-0.59) K/uL Eos # (Auto) (0-0.50) K/uL Baso # (Auto) (0-0.2) K/uL Immature Gran # (Auto) (0.01-0.20) K/uL PT (9.0-12.0) Seconds INR (0.9-1.1) APTT (21.0-31.0) Seconds PTT Ratio Sodium (136-145) mmol/L Potassium (3.5-5.1) mmol/L Chloride (98-107) mmol/L Carbon Dioxide (21-32) mmol/L Anion Gap (3-11) BUN (6-23) mg/dl Creatinine (0.6-1.4) mg/dl Est Cr Clr Drug Dosing ml/min Est GFR ( Amer) ml/min Est GFR (Non-Af Amer) ml/min BUN/Creatinine Ratio (10-20) Glucose (70-99(Fasting)) mg/dl POC Glucose 117 H 154 H 154 H (70-99) mg/dl Calcium (8.6-10.3) mg/dl SARS-CoV-2, RNA, NAAT (NEGATIVE) 02/01/23 02/01/23 02/01/23 Range/Units 05:42 05:42 05:42 WBC 6.76 (4.8-10.8) K/ul RBC 3.44 L (4.70-6.10) M/uL Hgb 10.1 L (14.0-18.0) g/dl Hct 30.9 L (42.0-52.0) % MCV 89.8 (80.0-100.0) fL MCH 29.4 (25.0-34.0) pg MCHC 32.7 (32.0-36.0) g/dL RDW Std Deviation 50.6 H (36.4-46.3) fL RDW Coeff of Suzy 15.6 H (11.5-14.5) % Plt Count 138 (130-400) K/uL MPV 10.9 (9.4-12.4) fL Immature Gran % (Auto) 0.6 % Neut % (Auto) 76.9 % Lymph % (Auto) 12.0 % Sabine % (Auto) 8.0 % Eos % (Auto) 2.2 % Baso % (Auto) 0.3 % Neut # (Auto) 5.20 (1.40-6.50) K/uL Lymph # (Auto) 0.81 L (1.2-3.4) K/uL Sabine # (Auto) 0.54 (0.11-0.59) K/uL Eos # (Auto) 0.15 (0-0.50) K/uL Baso # (Auto) 0.02 (0-0.2) K/uL Immature Gran # (Auto) 0.04 (0.01-0.20) K/uL PT 13.0 H (9.0-12.0) Seconds INR 1.2 H (0.9-1.1) APTT (21.0-31.0) Seconds PTT Ratio Sodium 137 (136-145) mmol/L Potassium 4.1 (3.5-5.1) mmol/L Chloride 105 (98-107) mmol/L Carbon Dioxide 27 (21-32) mmol/L Anion Gap 5 (3-11) BUN 13 (6-23) mg/dl Creatinine 0.96 (0.6-1.4) mg/dl Est Cr Clr Drug Dosing 95.7 ml/min Est GFR ( Amer) 93.1 ml/min Est GFR (Non-Af Amer) 80.3 ml/min BUN/Creatinine Ratio 13.5 (10-20) Glucose 154 H (70-99(Fasting)) mg/dl POC Glucose (70-99) mg/dl Calcium 8.3 L (8.6-10.3) mg/dl SARS-CoV-2, RNA, NAAT (NEGATIVE) 02/01/23 02/01/23 02/01/23 Range/Units 08:00 11:54 17:09 WBC (4.8-10.8) K/ul RBC (4.70-6.10) M/uL Hgb (14.0-18.0) g/dl Hct (42.0-52.0) % MCV (80.0-100.0) fL MCH (25.0-34.0) pg MCHC (32.0-36.0) g/dL RDW Std Deviation (36.4-46.3) fL RDW Coeff of Suzy (11.5-14.5) % Plt Count (130-400) K/uL MPV (9.4-12.4) fL Immature Gran % (Auto) % Neut % (Auto) % Lymph % (Auto) % Sabine % (Auto) % Eos % (Auto) % Baso % (Auto) % Neut # (Auto) (1.40-6.50) K/uL Lymph # (Auto) (1.2-3.4) K/uL Sabine # (Auto) (0.11-0.59) K/uL Eos # (Auto) (0-0.50) K/uL Baso # (Auto) (0-0.2) K/uL Immature Gran # (Auto) (0.01-0.20) K/uL PT (9.0-12.0) Seconds INR (0.9-1.1) APTT (21.0-31.0) Seconds PTT Ratio Sodium (136-145) mmol/L Potassium (3.5-5.1) mmol/L Chloride (98-107) mmol/L Carbon Dioxide (21-32) mmol/L Anion Gap (3-11) BUN (6-23) mg/dl Creatinine (0.6-1.4) mg/dl Est Cr Clr Drug Dosing ml/min Est GFR ( Amer) ml/min Est GFR (Non-Af Amer) ml/min BUN/Creatinine Ratio (10-20) Glucose (70-99(Fasting)) mg/dl POC Glucose 153 H 170 H 156 H (70-99) mg/dl Calcium (8.6-10.3) mg/dl SARS-CoV-2, RNA, NAAT (NEGATIVE) 02/01/23 02/02/23 02/02/23 Range/Units 20:57 05:40 08:00 WBC (4.8-10.8) K/ul RBC (4.70-6.10) M/uL Hgb (14.0-18.0) g/dl Hct (42.0-52.0) % MCV (80.0-100.0) fL MCH (25.0-34.0) pg MCHC (32.0-36.0) g/dL RDW Std Deviation (36.4-46.3) fL RDW Coeff of Suzy (11.5-14.5) % Plt Count (130-400) K/uL MPV (9.4-12.4) fL Immature Gran % (Auto) % Neut % (Auto) % Lymph % (Auto) % Sabine % (Auto) % Eos % (Auto) % Baso % (Auto) % Neut # (Auto) (1.40-6.50) K/uL Lymph # (Auto) (1.2-3.4) K/uL Sabine # (Auto) (0.11-0.59) K/uL Eos # (Auto) (0-0.50) K/uL Baso # (Auto) (0-0.2) K/uL Immature Gran # (Auto) (0.01-0.20) K/uL PT 16.1 H (9.0-12.0) Seconds INR 1.5 H (0.9-1.1) APTT (21.0-31.0) Seconds PTT Ratio Sodium (136-145) mmol/L Potassium (3.5-5.1) mmol/L Chloride (98-107) mmol/L Carbon Dioxide (21-32) mmol/L Anion Gap (3-11) BUN (6-23) mg/dl Creatinine (0.6-1.4) mg/dl Est Cr Clr Drug Dosing ml/min Est GFR ( Amer) ml/min Est GFR (Non-Af Amer) ml/min BUN/Creatinine Ratio (10-20) Glucose (70-99(Fasting)) mg/dl POC Glucose 165 H 153 H (70-99) mg/dl Calcium (8.6-10.3) mg/dl SARS-CoV-2, RNA, NAAT (NEGATIVE) Total Time Total Time Spent Total Time Spent (In Minutes): 20 Discharge Plan Discharge Items Patient Disposition: Home - Self-Care Reason For Visit: Left shoulder rotator cuff arthropathy Discharge Diagnosis: Left shoulder rotator cuff arthropathy Activity: Per Instructions section Weightbearing: Left non-weightbearing Non-emergency contact: Surgeon Call non-emergency contact if: you have any medication questions, your pain is not controlled, your temperature is above 101.5, your wound has increased redness and your wound has increased drainage Follow-up/Referrals: Mary Flood CRNP [Primary Care Provider] - Rusty Perez MD [Surgeon] - (Follow-up with Dr. Perez or his PA in 2 weeks from the day of your surgery for your first postoperative visit.) Diet: Carb Consistent or DM2 Addtl Attending Provider Instructions: ACTIVITY RECOMMENDATIONS: SELF CARE INSTRUCTIONS AFTER TOTAL SHOULDER ARTHROPLASTY REVERSE A. You may do daily exercises as taught in physical therapy while in hospital. No lifting with the operative arm. B. You are to wear your sling/immobilizer at all times EXCEPT when performing your daily exercises and for hygiene purposes. C. You may perform dry, daily dressing changes. Please keep your incision covered. You may shower 48 hours after surgery. Do not apply soap or any ointment/lotions directly over incision. Do not soak incision in bath tub/swimming pool. D. You may use ice as needed to operative shoulder. SPECIAL CARE INSTRUCTIONS: VERY IMPORTANT TO READ AND REVIEW A. There are a few signs you need to watch for after you are home. Call [facility] at [phone] if you experience any of the followin. Increased severe shoulder pain. Some pain is expected especially when you exercise. 2. Increased swelling in you shoulder or arm; pain or swelling in either upper extremity. 3. Any fluid drainage from the incision. 4. Shortness of breath or chest pain. B. Please call [facility] at [phone] if you have any questions or concerns about your operation or recovery. C. Call your physician if: 1. Temperature is greater than 101 degrees (F). 2. Pain is not relieved by prescribed pain medications. 3. Increase drainage or redness from incision. 4. Unanswered questions or concerns. FOLLOW UP VISIT: Please call [facility] at [phone] to schedule a follow up appointment with Dr. Perez or his PA in 12-14 days from your surgery date. Pending Studies at Discharge: No Stand-Alone Forms: My [facility] Subblime, Smoking Cessation Medications and DC Order Prescriptions: New acetaminophen [Tylenol Extra Strength] 500 mg Tablet 1,000 mg PO Q8 14 Days Qty: 84 0RF polyethylene glycol 3350 [Miralax] 17 gram powder in packet 17 g PO DAILY PRN (Reason: constipation) Qty: 5 0RF cefadroxil 500 mg capsule 500 mg PO BID Qty: 14 0RF oxycodone 5 mg tablet 5 mg PO Q4H MDD 6 PRN (Reason: pain) Qty: 30 0RF Continued zinc 50 mg tablet 50 mg PO HS ascorbic acid (vitamin C) 500 mg capsule 500 mg PO BID atorvastatin 40 mg tablet 40 mg PO HS Qty: 90 3RF tamsulosin 0.4 mg capsule 0.4 mg PO HS Qty: 90 3RF Janumet XR 50-1,000 mg tablet, ER multiphase 24 hr 1 tab PO BID Qty: 180 3RF Rx Instructions: 1 tab PO bid; cholecalciferol (vitamin D3) 25 mcg (1,000 unit) capsule 25 mcg PO QAM Trulicity 0.75 mg/0.5 mL pen injector 1.5 mg subcut .COMPLEX Qty: 6 3RF Rx Instructions: 1.5 mg subcutaneously weekly; pt aware dose change aspirin 81 mg Tablet,Delayed Release (Dr/Ec) 81 mg PO QAM metoprolol succinate 25 mg Tablet Extended Release 24 Hr 25 mg PO QAM losartan 50 mg tablet 50 mg PO QAM warfarin 5 mg tablet See Rx Instructions .ROUTE .COMPLEX Rx Instructions: takes 5mg daily Discharge Orders: Discharge Order (Routine); Ordered 02/02/23 Ordered By: Piero Humphreys Admission Data Admit Date/Time: 01/31/23 14:55 Attending Provider: Rusty Perez Admit Provider: Rusty Perez Primary Care Provider: Mary Flood Other Providers: Delfino Waters Jonathan M. Other Interventions: Discharge Summary Assessment (RN) Last Done: 02/02/23 10:39
== END 2023-02-02 12:20 | disposition home or self-care (01) ==
LOC: 3E 08:37 → ASU 08:37

== ENCOUNTER 2024-07-23 15:19 | Inpatient (IN) ==
[2024-07-23] MEDS ORDERED: VANCOMYCIN CONSULT ACTIVE PRN (15:25)
[2024-07-23] MEDS: PIPERACILLIN/TAZOBACTAM 4.5 GM/120 ML BAG IV ONE (16:03)
[2024-07-23 16:13] LABS: Basophils # (auto) 0.05 K/uL (0.00-0.20); Basophils % (auto) 0.5 %; Eosinophils # (auto) 0.22 K/uL (0.00-0.50); Hematocrit (blood only) 35.5 % (42.0-52.0); Hemoglobin 11.6 g/dl (14.0-18.0); Immature Granulocytes # (auto) 0.05 K/uL (0.01-0.20); Immature Granulocytes % (auto) 0.5 %; Lymphocytes # (auto) 0.88 K/uL (1.20-3.40); Lymphocytes % (auto) 8.1 %; Mean Corpuscular Hgb Conc 32.7 g/dL (32.0-36.0); Mean Corpuscular Volume 88.8 fL (80.0-100.0); Mean Platelet Volume 11.2 fL (9.4-12.4); Monocytes # (auto) 0.77 K/uL (0.11-0.59); Neutrophils # (auto) 8.96 K/uL (1.40-6.50); Neutrophils % (auto) 81.9 %; Platelet Count 199 K/uL (130-400); RDW Coefficient of Variation 15.1 % (11.5-14.5); RDW Standard Deviation 49.3 fL (36.4-46.3); White Blood Count 10.93 K/ul (4.8-10.8)
--- NOTE | 2024-07-23 16:18 | History & Physical Report ---
Date of Service July 23, 2024 Assessment & Plan (1) Diabetic ulcer of right foot: Plan: 68 y/o male with chronic diabetic ulcer of right foot History of submetatarsal 5 ulceration right foot with purulent discharge He was seen by Dr. Huntley today plan for Incision and drainage today due to concern of an abscess and osteomyelitis XRAY done on ED Mild leukocytosis, no fever, hemodynamically stable IV Zosyn and IV Vanco started on ED Continue IV Zosyn and Daptomycin for empiric treatment Revised Cardiac risk Index: 1 NPO for OR today Warfarin hold tonight CBC AM, BMP, PT/PTT AM (2) Diabetic nephropathy: Plan: hold Janvet and tirzepatide A1C: 7.7 NovoLog scale (3) BPH NOS w ur obs/LUTS: Plan: Continue Flomax (4) CAD (coronary artery disease): Plan: Hx of CABG X 3 (2009) Aspirin 81 mg continue Metoprol and Losartan (5) Pacemaker: Plan: (6) PAD (peripheral artery disease): Plan: continue aspirin Atorvastatin hold in the setting of IV Dapto (7) Dyslipidemia: Plan: Atorvastatin hold (8) Paroxysmal atrial fibrillation: Plan: Metroprolol hold Warfarin- He takes 1 mg daily and 2 mg on Last taken 07/22 INR 1.8 If stable may restart Warfarin with bridging tomorrow morning Plan Patient seen and examined, chart reviewed, case discussed with Dr. Pietro Croft MD and I agree with the assessment and plan as above except as otherwise noted Labs and images reviewed Renzo is a 68-year-old male with a past medical history of type 2 diabetes mellitus on tirzepatide, Janumet, right diabetic foot wound with history of distal amputation, A-fib on warfarin with history of pacemaker placement was referred to the ER for revision of a right foot infection/abscess with possible osteomyelitis. Case was discussed with Dr. Huntley. Patient is anticipated for incision under tourniquet and with possible small amount of bony revision. He is aware patient is anticoagulated with a INR last 2.1, on repeat 1.8, he is able to undergo his intervention today with minimal expected bleeding. Agree with antibiotics as above, and will follow surgical cultures. At the bedside did discuss diabetic shoes and wound healing precautions extensively patient is adamant that he will refuse any diabetic shoe and prefers to get holes in his own sneakers. Discussed proper wound healing and all measures involved including wound care, deep diabetes control, and infection control. Patient reports he is agreeable to operative interventions and antibiotics but will not use diabetic shoes. He reports he does have a history of CAD but has been walking through the [employer] and has had no recent chest pain or anginal symptoms. He does have a history of A-fib but is generally in a paced rhythm at 60. He is compliant with his warfarin which he takes at night. He last took this 07/22. Right diabetic foot infection Podiatry following. Operated in for invention evening 07/23 Continue Zosyn/daptomycin on admission Follow surgical cultures A-fib, CAD with history of PCI Warfarin x 1 held 07/23 for operative intervention. Resume warfarin 07/24 if doing well, if significantly subtherapeutic then may give a short Lovenox 1 mg/kg twice daily bridge starting a.m. 07/24. Rate is adequately controlled, patient has an underlying pacemaker so is not at risk of bradycardia with IV metoprolol if needed. No signs of RVR admission. Continue home medications Aspirin, metoprolol, statin continued DM2 Basal bolus insulin while admitted, hold oral antiglycemic's. Goal BSG [id number] while inpatient SSI CF/ratio 25/9 while admitted Agree with assessment and management as above History of Present Illness Primary Care Provider: LAURA Prabhakar 68 y/o male with PMH of diabetic type 2, hyperlipidemia, CAD, hx CABG, on pacemaker, Afib on warfarin, and hyperlipidemia patient had a know diabetic right foot. Patient was sent from Podiatry office due to swelling of the right foot with significant purulent drainage. Concern of Osteomyelitis as well. Patient refers not being consistent with diabetic shoes. He had been hunting the past weeks. He refers had a normal shoes with a opening for his 5th toe. Follows with Dr.R Calles every 2 weeks. Denied any SOB, chest pain with hunting or daily activities. Refers take his mediation daily. currently on Warfarin. Last INR was 2.1. He takes 1 mg daily and 2 mg on Denied any chest pain, sob, palpitations, nausea, abdominal pain or any other symptoms Ed course: IV zosyn and IV Vanco started. Xray of the foot done. Allergies Allergy/AdvReac Type Severity Reaction Status Date / Time No Known Allergies Allergy Verified 06/12/24 12:48 Home Medications Medication Instructions Recorded Confirmed Type aspirin 81 mg tablet,delayed 81 mg PO QAM 06/26/18 06/12/24 History release metoprolol succinate 25 mg 25 mg PO QAM 06/26/18 06/12/24 History tablet,extended release 24 hr (Toprol XL) zinc 50 mg tablet 50 mg PO HS 07/10/21 06/12/24 History losartan 50 mg tablet (Cozaar) 50 mg PO QAM 09/21/21 06/12/24 History warfarin 5 mg tablet 1 mg PO HS 09/21/21 06/12/24 History cholecalciferol (vitamin D3) 25 25 mcg PO QAM 06/26/22 06/12/24 History mcg (1,000 unit) capsule ascorbic acid (vitamin C) 500 mg 500 mg PO QAM 08/07/23 06/12/24 History capsule sitagliptin phos 50 mg-metformin 1 tab PO BID #180 tabs 10/28/23 06/12/24 Rx ER 1,000 mg tablet,extend rel 24h mp (Janumet XR) blood sugar diagnostic (FreeStyle #100 ea 01/10/24 06/12/24 Rx Lite Strips) atorvastatin 40 mg tablet (Lipitor) 40 mg PO HS 02/12/24 06/12/24 History tamsulosin 0.4 mg capsule (Flomax) 0.4 mg PO HS 02/12/24 06/12/24 History meclizine 25 mg tablet 25 mg PO TID PRN dizziness #30 tabs 03/05/24 06/12/24 Rx tirzepatide 7.5 mg/0.5 mL 7.5 mg (0.5 mL) subcut WK #2 mL 06/25/24 Rx subcutaneous pen injector ([place]oundalilaro) doxycycline hyclate 100 mg tablet 100 mg PO BID #42 tabs 07/11/24 Rx sulfamethoxazole 800 1 tab PO Q12H 14 days #28 tabs 07/11/24 Rx mg-trimethoprim 160 mg tablet (Bactrim DS) Past Med/Surg History Problem List (Updated 07/23/24 @ 16:42 by Juan C Croft MD) Diabetic ulcer of right foot Tick bite of abdominal wall Obesity, diabetes, and hypertension syndrome Diabetic nephropathy Abnormal ankle brachial index Left flank pain Fatigue Joint pain Status post total replacement of left shoulder Stress incontinence BPH NOS w ur obs/LUTS Rotator cuff arthropathy of left shoulder CAD (coronary artery disease) CABG x3 (2009) 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 Murillo "last checked within the last several months" Kidney stones hx Neck pain of over 3 months duration PAD (peripheral artery disease) (Chronic) Diabetic foot ulcer (Acute) History of nephrolithiasis Low back pain Fungemia (Acute) Left ureteral calculus (Acute) Chronic cough Anemia Hydronephrosis concurrent with and due to calculi of kidney and ureter (Acute) Diabetic ulcer of right foot associated with type 2 diabetes mellitus, with fat layer exposed (Acute) Ectatic thoracic aorta Diabetic peripheral neuropathy associated with type 2 diabetes mellitus (Acute) Loss of protective sensation of skin of foot wears a special boot -- Status post laser lithotripsy of ureteral calculus 02/2019 Encounter for pre-operative examination Paroxysmal atrial fibrillation (Acute) per cardiology records, patient unaware Dyslipidemia (Chronic) Prostate cancer (Chronic) s/p radiation and seed now on lupron injections q3 months Medical History Diabetic peripheral neuropathy BPH (benign prostatic hyperplasia) Anemia Diabetes mellitus, type 2 Dyslipidemia HTN (hypertension) PAD (peripheral artery disease) Paroxysmal atrial fibrillation CAD (coronary artery disease) History of prostate cancer Hx of sepsis History of gout Diverticular disease Hx of renal calculi Foot ulcer History of myocardial infarction History of COVID-19 Hx MRSA infection SUE (acute kidney injury) Sciatica ALISSA (obstructive sleep apnea) Intracanalicular fibroadenoma Surgical History History of arthroplasty of left shoulder History of lithotripsy S/P CABG (coronary artery bypass graft) History of arthroscopy of right shoulder History of arthroscopy of left shoulder S/P placement of cardiac pacemaker S/P cystoscopy with ureteral stent placement History of arthroplasty of right shoulder History of total bilateral knee replacement (TKR) History of cataract surgery Status post right foot surgery History of hip replacement S/P appendectomy H/O prostate biopsy Family History Unknown Prostate cancer Father Diabetes Myocardial infarction Other No family history of adverse response to anesthesia Denies family history of Ovarian cancer Breast cancer Colorectal cancer Social History Smoking Status: Never smoker Second Hand Exposure: No; Do You Dip or Chew Tobacco: No; Hx Alcohol Use: Yes Alcohol type: beer, wine and hard liquor Alcohol Intake Frequency: Monthly or Less Hx Substance Use: No Preferred Language: Mosotho Communication Ability: Effective Visual Impairment: Limited Hearing Ability: Normal 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 Beliefs That Will Affect Care: None marital status: / Current Living Situation: Alone current occupational status: retired How many Children do You have: 2 How many Children do You have Comment: local and able to assist as needed Feels Safe at Home: Yes Childhood Exposure to Second-Hand Smoke: No Diet: low carbohydrate and regular caffeine: Yes during the past year weight has: decreased > 10 lbs Dental Care, Regularly: Yes Physical Activity Frequency: 1-2 Times per Week Seatbelt Use: sometimes Sunscreen Use: No Do you think of yourself as: straight/heterosexual Gender Identity: Male Assistive Devices: Glasses Review of Systems Review of Systems: as per HPI Physical Exam Constitutional: WD/WN, vitals as above Eyes: PERRL, conjunctivae normal, anicteric sclerae Respiratory: normal respiratory effort, lungs clear to auscultation Cardiovascular: RRR, no murmur, no edema Gastrointestinal (Abdomen): normal bowel sounds, soft, nontender, no hepatosplenomegaly Skin: right foot on clean bandages Results & Data Results & Data Vital Signs (Past 12 Hours) Vital Signs Temp Pulse Pulse Resp BP BP Pulse Ox 07/23/24 15:54 60 16 97 07/23/24 15:54 60 20 119/62 98 07/23/24 15:20 36.6 C 84 18 121/69 99 O2 Del Method 07/23/24 15:54 Room Air 07/23/24 15:54 07/23/24 15:20
[2024-07-23] MEDS: VANCOMYCIN HCL 1,750 MG in SODIUM CHLORIDE 0.9% 500 ML IV ONE (16:41)
[2024-07-23 16:52] LABS: INR 1.8 (0.9-1.1); Partial Thromboplastin Time 27 Seconds (21-31); Prothrombin Time 18.2 Seconds (9.0-12.0)
[2024-07-23 16:54] LABS: Anion Gap 8 (3-11); BUN Creatinine Ratio 16.7 (10-20); Blood Urea Nitrogen 21 mg/dl (6-23); Calcium 9.2 mg/dl (8.6-10.3); Carbon Dioxide 25 mmol/L (21-32); Chloride 102 mmol/L (98-107); Creatinine Clr Calc Pharmacy 59.9 ml/min; Glucose 159 mg/dl (70-99(Fasting)); Sodium 135 mmol/L (136-145)
--- NOTE | 2024-07-23 17:35 | XRay Report ---
EXAMINATION: X-ray foot right minimum 3 view routine CLINICAL HISTORY: Possible infection of right foot PRIORS: 06/11/2024, 03/04/2024, 02/18/2024 TECHNIQUE: AP, AP oblique and lateral views right foot FINDINGS: Surgical absence of the fifth metatarsal head. Mild resorption of the surgical site noted since the prior examination. Subtle periosteal reaction is present adjacent to the surgical site, appearing in the interval and best identified on the oblique view. Moderate regional soft tissue swelling noted with small bony fragments or calcifications, unchanged. The fifth phalanges are unremarkable. No subcutaneous gas. Remainder of metatarsals and phalanges are unremarkable. Vascular calcifications present. Large inferior calcaneal spur. IMPRESSION: 1. Postsurgical changes of fifth metatarsal head resection with periosteal reaction and mild lucency at the fracture site which could suggest osteomyelitis in the proper clinical setting. Regional soft tissue swelling is also present with no subcutaneous gas or radiopaque foreign body. Electronically signed by Martha Sanchez 07-23-2024 5:34 PM
--- NOTE | 2024-07-23 18:51 | Emergency Department Note ---
History of Present Illness General Chief complaint: Foot Injury/Pain Stated complaint: DRAIN FOOT, RT FOOT Time Seen by Provider: 07/23/24 15:23 History of Present Illness Provider complaint: Foot wound needs surgery Maximum Pain Intensity: 4 68-year-old male was referred to the emergency department to be admitted for surgery by his orthopedist. Patient states he saw his orthopedist in the office today and they are going to take him for surgery on his right foot pain. Home Medications Medication Instructions Recorded Confirmed Type aspirin 81 mg tablet,delayed 81 mg PO QAM 06/26/18 07/23/24 History release metoprolol succinate 25 mg 25 mg PO QAM 06/26/18 07/23/24 History tablet,extended release 24 hr (Toprol XL) zinc 50 mg tablet 50 mg PO HS 07/10/21 07/23/24 History losartan 50 mg tablet (Cozaar) 50 mg PO QAM 09/21/21 07/23/24 History warfarin 5 mg tablet 1 mg PO UD 09/21/21 07/23/24 History cholecalciferol (vitamin D3) 25 25 mcg PO QAM 06/26/22 07/23/24 History mcg (1,000 unit) capsule ascorbic acid (vitamin C) 500 mg 500 mg PO QAM 08/07/23 07/23/24 History capsule sitagliptin phos 50 mg-metformin 1 tab PO BID #180 tabs 10/28/23 07/23/24 Rx ER 1,000 mg tablet,extend rel 24h mp (Janumet XR) blood sugar diagnostic (FreeStyle #100 ea 01/10/24 06/12/24 Rx Lite Strips) atorvastatin 40 mg tablet (Lipitor) 40 mg PO HS 02/12/24 07/23/24 History tamsulosin 0.4 mg capsule (Flomax) 0.4 mg PO HS 02/12/24 07/23/24 History meclizine 25 mg tablet 25 mg PO TID PRN dizziness #30 tabs 03/05/24 07/23/24 Rx tirzepatide 7.5 mg/0.5 mL 7.5 mg (0.5 mL) subcut WK #2 mL 06/25/24 07/23/24 Rx subcutaneous pen injector (Samson) doxycycline hyclate 100 mg tablet 100 mg PO BID #42 tabs 07/11/24 07/23/24 Rx sulfamethoxazole 800 1 tab PO Q12H 14 days #28 tabs 07/11/24 07/23/24 Rx mg-trimethoprim 160 mg tablet (Bactrim DS) Allergies Allergy/AdvReac Type Severity Reaction Status Date / Time No Known Allergies Allergy Verified 06/12/24 12:48 Past Med/Surg History Problem List (Updated 07/23/24 @ 18:51 by Jarvis Castle MD) Diabetic ulcer of right foot Tick bite of abdominal wall Obesity, diabetes, and hypertension syndrome Diabetic nephropathy Abnormal ankle brachial index Left flank pain Fatigue Joint pain Status post total replacement of left shoulder Stress incontinence BPH NOS w ur obs/LUTS Rotator cuff arthropathy of left shoulder CAD (coronary artery disease) CABG x3 (2009) 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 Murillo "last checked within the last several months" Kidney stones hx Neck pain of over 3 months duration PAD (peripheral artery disease) (Chronic) Diabetic foot ulcer (Acute) History of nephrolithiasis Low back pain Fungemia (Acute) Left ureteral calculus (Acute) Chronic cough Anemia Hydronephrosis concurrent with and due to calculi of kidney and ureter (Acute) Diabetic ulcer of right foot associated with type 2 diabetes mellitus, with fat layer exposed (Acute) Ectatic thoracic aorta Diabetic peripheral neuropathy associated with type 2 diabetes mellitus (Acute) Loss of protective sensation of skin of foot wears a special boot -- Status post laser lithotripsy of ureteral calculus 02/2019 Encounter for pre-operative examination Paroxysmal atrial fibrillation (Acute) per cardiology records, patient unaware Dyslipidemia (Chronic) Prostate cancer (Chronic) s/p radiation and seed now on lupron injections q3 months Medical History Diabetic peripheral neuropathy BPH (benign prostatic hyperplasia) Anemia Diabetes mellitus, type 2 Dyslipidemia HTN (hypertension) PAD (peripheral artery disease) Paroxysmal atrial fibrillation per cardiology records, patient unaware CAD (coronary artery disease) CABG x3 (2009) History of prostate cancer 2016 chemo/radiation - in remission Hx of sepsis 2020 -- treated at [facility] r/t kidney stones and uretral stent History of gout 2013 "No attacks in 10 years" Diverticular disease 2019 patient denies Hx of renal calculi Foot ulcer Right History of myocardial infarction > CABG x3 (2009) History of COVID-19 2020- mild symptoms (during kidney stone and sepsis treatments) > resolved Hx MRSA infection right foot infection in 2020 - no recent issues SUE (acute kidney injury) Hx 2020 Sciatica ALISSA (obstructive sleep apnea) no device, pt denies Intracanalicular fibroadenoma per records, patient unaware Surgical History History of arthroplasty of left shoulder 01/31/23 History of lithotripsy 04/2021 S/P CABG (coronary artery bypass graft) CABG x3 (2009) History of arthroscopy of right shoulder RCR x2 History of arthroscopy of left shoulder RCR x2 2020 S/P placement of cardiac pacemaker 11/13/17 Medtronic [facility] S/P cystoscopy with ureteral stent placement 04/10/21 History of arthroplasty of right shoulder 2022 History of total bilateral knee replacement (TKR) History of cataract surgery bilateral 2021 Status post right foot surgery right foot debridement for MRSA 08/10/20 History of hip replacement left 2018 S/P appendectomy H/O prostate biopsy Family History Unknown Prostate cancer self Father Diabetes Myocardial infarction Other No family history of adverse response to anesthesia Denies family history of Ovarian cancer Breast cancer Colorectal cancer Social History Smoking Status: Never smoker Second Hand Exposure: No; Do You Dip or Chew Tobacco: No; Hx Alcohol Use: Yes Alcohol type: beer, wine and hard liquor Alcohol Intake Frequency: Monthly or Less Hx Substance Use: No Preferred Language: Swedish Communication Ability: Effective Visual Impairment: Limited Hearing Ability: Normal 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 Beliefs That Will Affect Care: None marital status: / Current Living Situation: Alone current occupational status: retired How many Children do You have: 2 How many Children do You have Comment: local and able to assist as needed Feels Safe at Home: Yes Childhood Exposure to Second-Hand Smoke: No Diet: low carbohydrate and regular caffeine: Yes during the past year weight has: decreased > 10 lbs Dental Care, Regularly: Yes Physical Activity Frequency: 1-2 Times per Week Seatbelt Use: sometimes Sunscreen Use: No Do you think of yourself as: straight/heterosexual Gender Identity: Male Assistive Devices: Glasses Physical Exam Vital Signs Vital Signs - 24 hr 07/23/24 15:20 07/23/24 15:54 07/23/24 15:54 Temperature 36.6 C Temperature Source Temporal Artery Scan Pulse Rate 84 60 Pulse Rate [Left Finger] 60 Pulse Rhythm Regular Respiratory Rate 18 20 16 Blood Pressure 121/69 Blood Pressure [Left Arm] 119/62 Blood Pressure Mean 86 Blood Pressure Mean [Left Arm] 81 Pulse Oximetry 99 98 97 Oxygen Delivery Method Room Air Sepsis Recent Fever Within 48 Hours No Sepsis New/Unexplained Change in Mental Status N/A Sepsis Action Taken by Nursing No Action Required 07/23/24 17:20 07/23/24 17:45 Temperature Temperature Source Pulse Rate 60 Pulse Rate [Left Finger] 60 Pulse Rhythm Respiratory Rate 18 Blood Pressure Blood Pressure [Left Arm] 126/60 Blood Pressure Mean Blood Pressure Mean [Left Arm] 82 Pulse Oximetry 98 Oxygen Delivery Method Sepsis Recent Fever Within 48 Hours Sepsis New/Unexplained Change in Mental Status Sepsis Action Taken by Nursing Physical Exam GENERAL: oriented to person, place, and time. appears well-developed and well- nourished. HENT: Exam performed. - Head: Normocephalic and atraumatic. CV: Normal rate, regular rhythm, normal heart sounds and intact distal pulses. There is no peripheral edema. Palpable radial pulses bue. PULM/CHEST: Effort normal and breath sounds normal. No respiratory distress. No stridor. no wheezes. no rales. Course Course 1523: The patient was evaluated in room D4. A complete history and physical exam was performed Administered Medications Discontinued Medications Piperacillin Sod/Tazobactam Sod (Zosyn) 4.5 gm in 120 mls @ 240 mls/hr IV NOW ONE Stop: 07/23/24 15:54 Last Infusion: 07/23/24 16:51 Dose: Infused Documented By: Admin: 07/23/24 16:03 Dose: 240 mls/hr Documented By: JOSEP Vancomycin HCl 1,750 mg/ (Sodium Chloride) 535 mls @ 200 mls/hr IV NOW ONE Stop: 07/23/24 18:05 Last Admin: 07/23/24 16:41 Dose: 200 mls/hr Documented By: JOSEP Medical Decision Making Laboratory Data Attestation: I reviewed the patient's lab results. 07/23/24 15:58 07/23/24 17:11 Lab Results 07/23/24 07/23/24 Range/Units 15:58 17:11 WBC 10.93 H (4.8-10.8) K/ul RBC 4.00 L (4.70-6.10) M/uL Hgb 11.6 L (14.0-18.0) g/dl Hct 35.5 L (42.0-52.0) % MCV 88.8 (80.0-100.0) fL MCH 29.0 (25.0-34.0) pg MCHC 32.7 (32.0-36.0) g/dL RDW Std Deviation 49.3 H (36.4-46.3) fL RDW Coeff of Suzy 15.1 H (11.5-14.5) % Plt Count 199 (130-400) K/uL MPV 11.2 (9.4-12.4) fL Immature Gran % (Auto) 0.5 % Neut % (Auto) 81.9 % Lymph % (Auto) 8.1 % [place] % (Auto) 7.0 % Eos % (Auto) 2.0 % Baso % (Auto) 0.5 % Neut # (Auto) 8.96 H (1.40-6.50) K/uL Lymph # (Auto) 0.88 L (1.20-3.40) K/uL [place] # (Auto) 0.77 H (0.11-0.59) K/uL Eos # (Auto) 0.22 (0.00-0.50) K/uL Baso # (Auto) 0.05 (0.00-0.20) K/uL Immature Gran # (Auto) 0.05 (0.01-0.20) K/uL PT 18.2 H (9.0-12.0) Seconds INR 1.8 H (0.9-1.1) APTT 27 (21-31) Seconds PTT Ratio 1.0 Sodium 135 L (136-145) mmol/L Potassium TNP 4.6 Chloride 102 (98-107) mmol/L Carbon Dioxide 25 (21-32) mmol/L Anion Gap 8 (3-11) BUN 21 (6-23) mg/dl Creatinine 1.26 (0.6-1.4) mg/dl Est Cr Clr Drug Dosing 59.9 ml/min eGFR 61.36 BUN/Creatinine Ratio 16.7 (10-20) Glucose 159 H (70-99(Fasting)) mg/dl Calcium 9.2 (8.6-10.3) mg/dl Imaging Data Radiologist's Impression: Foot X-Ray 07/23/24 15:26 EXAMINATION: X-ray foot right minimum 3 view routine CLINICAL HISTORY: Possible infection of right foot PRIORS: 06/11/2024, 03/04/2024, 02/18/2024 TECHNIQUE: AP, AP oblique and lateral views right foot FINDINGS: Surgical absence of the fifth metatarsal head. Mild resorption of the surgical site noted since the prior examination. Subtle periosteal reaction is present adjacent to the surgical site, appearing in the interval and best identified on the oblique view. Moderate regional soft tissue swelling noted with small bony fragments or calcifications, unchanged. The fifth phalanges are unremarkable. No subcutaneous gas. Remainder of metatarsals and phalanges are unremarkable. Vascular calcifications present. Large inferior calcaneal spur. IMPRESSION: 1. Postsurgical changes of fifth metatarsal head resection with periosteal reaction and mild lucency at the fracture site which could suggest osteomyelitis in the proper clinical setting. Regional soft tissue swelling is also present with no subcutaneous gas or radiopaque foreign body. Electronically signed by Martha Sanchez 07-23-2024 5:34 PM MDM Narrative Received a call from [facility] orthopedic who saw the patient in the office today and refer the patient to the emergency department. They stated to admit the patient to the medicine team given his other comorbidities and stated they planned on taking to the OR tonight for his foot wound. [facility] hospitalist team was contacted and admitted the patient. Brandon and Chris ordered for the patient. Impression & Plan Diabetic foot ulcer Discharge Plan Visit Data Chief Complaint: Foot Injury/Pain Stated Complaint: DRAIN FOOT, RT FOOT ED Provider: Jarvis Castle Discharge Problem: Diabetic foot ulcer Patient Disposition: Admitted As Inpatient Forms Stand Alone Forms: My [facility] Prescriptions Prescriptions: No Action zinc 50 mg tablet 50 mg PO HS ascorbic acid (vitamin C) 500 mg capsule 500 mg PO QAM Janumet XR 50-1,000 mg tablet, ER multiphase 24 hr 1 tab PO BID Qty: 180 3RF Rx Instructions: 1 tab PO bid; (DME) FreeStyle Lite Strips Strip See Rx Instructions .Route Qty: 100 3RF Rx Instructions: test 1-2 times daily meclizine 25 mg tablet 25 mg PO TID PRN (Reason: dizziness) Qty: 30 2RF Mounjaro 7.5 mg/0.5 mL pen injector 7.5 mg subcut WK Qty: 2 4RF Rx Instructions: 7.5 mg subcutaneously weekly; doxycycline hyclate 100 mg tablet 100 mg PO BID Qty: 42 0RF sulfamethoxazole-trimethoprim [Bactrim DS] 800-160 mg tablet 1 tab PO Q12H 14 Days Qty: 28 0RF cholecalciferol (vitamin D3) 25 mcg (1,000 unit) capsule 25 mcg PO QAM aspirin 81 mg Tablet,Delayed Release (Dr/Ec) 81 mg PO QAM metoprolol succinate [Toprol XL] 25 mg Tablet Extended Release 24 Hr 25 mg PO QAM losartan [Cozaar] 50 mg tablet 50 mg PO QAM warfarin 5 mg tablet 1 mg PO UD Rx Instructions: 1 mg daily and 2 mg on atorvastatin [Lipitor] 40 mg tablet 40 mg PO HS tamsulosin [Flomax] 0.4 mg capsule 0.4 mg PO HS Referrals Referrals: Mary Flood CRNP [Primary Care Provider] -
[2024-07-23] MEDS ORDERED: ONDANSETRON INJ 2 MG/ML 2 ML VIAL ONE (19:39)
[2024-07-23] MEDS ORDERED: PROPOFOL IV EMULSION 10 MG/ML 20 ML VIAL IV ONE ×2 (19:39→20:12)
[2024-07-23] MEDS ORDERED: KETAMINE HCL 10MG/ML SYR ONE (19:40)
[2024-07-23] MEDS ORDERED: fentaNYL citrate PF 100 MCG/2 ML VIAL ONE (19:40)
[2024-07-23] MEDS ORDERED: MIDAZOLAM HCL 1 MG/ML 2ML VIAL ONE (19:40)
[2024-07-23] MEDS ORDERED: ONDANSETRON INJ 2 MG/ML 2 ML VIAL IV PRN ×2 (19:50→21:28)
[2024-07-23] MEDS ORDERED: ATROPINE SULFATE 0.1 MG/ML 10ML SYR IV PRN (19:50)
[2024-07-23] MEDS ORDERED: fentaNYL citrate PF 100 MCG/2 ML VIAL IV PRN (19:50)
[2024-07-23] MEDS ORDERED: ePHEDrine sulfate 50 MG/ML AMP IV PRN (19:50)
--- NOTE | 2024-07-23 19:52 | Anesthesiology Consultation ---
Date of Service July 23, 2024 Assessment & Plan (1) Encounter for pre-operative examination: Chart Review Chart Review: Acceptable Risk for Surgery and Patient NOT seen in Pre Admission Testing Consults Requested none History Surgery Operation Date: 07/23/24 09:40 Proposed Procedures p Right Foot Incision and Debridement - Shayla Huntley DPM Height/Weight Height: 6 ft Weight: 91.7 kg Allergies Allergy/AdvReac Type Severity Reaction Status Date / Time No Known Allergies Allergy Verified 06/12/24 12:48 Medications Home Medications Medication Instructions Recorded Confirmed Last Taken aspirin 81 mg tablet,delayed 81 mg PO QAM 06/26/18 07/23/24 02/19/24 release metoprolol succinate 25 mg 25 mg PO QAM 06/26/18 07/23/24 02/19/24 tablet,extended release 24 hr (Toprol XL) zinc 50 mg tablet 50 mg PO HS 07/10/21 07/23/24 01/29/23 23:00 losartan 50 mg tablet (Cozaar) 50 mg PO QAM 09/21/21 07/23/24 02/19/24 warfarin 5 mg tablet 1 mg PO UD 09/21/21 07/23/24 01/26/23 18:00 cholecalciferol (vitamin D3) 25 25 mcg PO QAM 06/26/22 07/23/24 02/19/24 mcg (1,000 unit) capsule ascorbic acid (vitamin C) 500 mg 500 mg PO QAM 08/07/23 07/23/24 Unknown capsule sitagliptin phos 50 mg-metformin 1 tab PO BID #180 tabs 10/28/23 07/23/24 Unknown ER 1,000 mg tablet,extend rel 24h mp (Janumet XR) blood sugar diagnostic (FreeStyle #100 ea 01/10/24 06/12/24 Unknown Lite Strips) atorvastatin 40 mg tablet (Lipitor) 40 mg PO HS 02/12/24 07/23/24 Unknown tamsulosin 0.4 mg capsule (Flomax) 0.4 mg PO HS 02/12/24 07/23/24 Unknown meclizine 25 mg tablet 25 mg PO TID PRN dizziness #30 tabs 03/05/24 07/23/24 Unknown tirzepatide 7.5 mg/0.5 mL 7.5 mg (0.5 mL) subcut WK #2 mL 06/25/24 07/23/24 Unknown subcutaneous pen injector (Samson) doxycycline hyclate 100 mg tablet 100 mg PO BID #42 tabs 07/11/24 07/23/24 Unknown sulfamethoxazole 800 1 tab PO Q12H 14 days #28 tabs 07/11/24 07/23/24 Unknown mg-trimethoprim 160 mg tablet (Bactrim DS) NPO Date Last Intake of Fluids: 07/23/24 Time Last Intake of Fluids: 11:45 Date Last Intake of Solids: 07/23/24 Time Last Intake of Solids: 11:45 Past Medical History Medical History Diabetic peripheral neuropathy BPH (benign prostatic hyperplasia) Anemia Diabetes mellitus, type 2 Dyslipidemia HTN (hypertension) PAD (peripheral artery disease) Paroxysmal atrial fibrillation per cardiology records, patient unaware CAD (coronary artery disease) CABG x3 (2009) History of prostate cancer 2015 chemo/radiation - in remission Hx of sepsis 2020 -- treated at [facility] r/t kidney stones and uretral stent History of gout 2013 "No attacks in 10 years" Diverticular disease 2019 patient denies Hx of renal calculi Foot ulcer Right History of myocardial infarction > CABG x3 (2009) History of COVID-19 2020- mild symptoms (during kidney stone and sepsis treatments) > resolved Hx MRSA infection right foot infection in 2020 - no recent issues SUE (acute kidney injury) Hx 2020 Sciatica ALISSA (obstructive sleep apnea) no device, pt denies Intracanalicular fibroadenoma per records, patient unaware Past Family History Family History Unknown Prostate cancer self Father Diabetes Myocardial infarction Other No family history of adverse response to anesthesia Denies family history of Ovarian cancer Breast cancer Colorectal cancer Past Surgical History Surgical History History of arthroplasty of left shoulder 01/31/23 History of lithotripsy 04/2021 S/P CABG (coronary artery bypass graft) CABG x3 (2009) History of arthroscopy of right shoulder RCR x2 History of arthroscopy of left shoulder RCR x2 2020 S/P placement of cardiac pacemaker 4/11/18 [employer] [facility] S/P cystoscopy with ureteral stent placement 04/10/21 History of arthroplasty of right shoulder 2022 History of total bilateral knee replacement (TKR) History of cataract surgery bilateral 2021 Status post right foot surgery right foot debridement for MRSA 08/10/20 History of hip replacement left 2019 S/P appendectomy H/O prostate biopsy Past Anesthesia History No Hx of Anesthesia Complications and No Family Hx of Anesthesia Complications History of PONV No Hx of PONV and No Hx of Motion Sickness Social History Smoking Status: Never smoker Do You Dip or Chew Tobacco: No Hx Alcohol Use: Yes Alcohol type: beer, wine and hard liquor alcohol intake frequency: holidays/special occasions only Hx Substance Use: No substance use type: does not use Physical Exam Vital Signs Last Vital Signs Temp 36.6 C 07/23/24 15:20 Pulse 62 07/23/24 19:34 Resp 18 07/23/24 19:34 BP 119/60 07/23/24 19:00 Pulse Ox 96 07/23/24 19:34 O2 Del Method Room Air 07/23/24 19:34 Testing Laboratory Results 07/23/24 15:58 07/23/24 17:11 PT 18.2 Seconds (9.0-12.0) H 07/23/24 15:58 INR 1.8 (0.9-1.1) H 07/23/24 15:58 APTT 27 Seconds (21-31) 07/23/24 15:58 Electrocardiogram Date: 09/14/23 DICTATED BY: Duran Matthews MD Test Reason : Blood Pressure : / mmHG Vent. Rate : 064 BPM Atrial Rate : 064 BPM P-R Int : 000 ms QRS Dur : 096 ms QT Int : 400 ms P-R-T Axes : 000 -25 264 degrees QTc Int : 412 ms Atrial fibrillation with demand ventricular pacing Incomplete right bundle branch block Nonspecific ST abnormality Abnormal ECG When compared with ECG of 04-JAN-2023 10:25, Premature ventricular complexes are no longer Present Confirmed by Duran Matthews ([id number]) on 09/14/2023 7:08:54 AM
--- NOTE | 2024-07-23 19:57 | History & Physical Bridge Note ---
Date of Service July 23, 2024 History & Physical Bridge Note I have examined the patient, reviewed the History & Physical and in the interval since the performance of the History & Physical I have noted the following changes of clinical significance: no changes noted right foot surgery.
--- NOTE | 2024-07-23 20:46 | Post Operative Brief Note ---
Immediate Post Op Note Date of Surgery July 23, 2024 Pre & Post Diagnosis Operation Date: 07/23/24 09:40 <No data on this case meets the specified criteria> I identified the patient and participated in the time-out.: Yes Procedure Operation Date: 07/23/24 09:40 <No data on this case meets the specified criteria> Surgeon Shayla Huntley DPM Hand Ii Cutter Gina Estimated Blood Loss 3 Findings Consistent with Post-Op Diagnosis Soft tissue wound cultures obtained right foot Complications none Disposition Accompanied Patient To Recovery: Yes
--- NOTE | 2024-07-23 20:52 | Operative Report ---
Post Operative Report Pre & Post Diagnosis Operation Date: 07/23/24 09:40 <No data on this case meets the specified criteria> I identified the patient and participated in the time-out.: Yes Procedure Operation Date: 07/23/24 09:40 <No data on this case meets the specified criteria> Surgeon Shayla Huntley DPM Sales Apprentice Gina Estimated Blood Loss 3 Findings Consistent with Post-Op Diagnosis Right foot ulcer with likely abscess and purulent drainage diabetic ulcer right foot fifth metatarsal Specimens Bone and tissue cultures obtained as well as pathology specimen sent Complications none Disposition Accompanied Patient To Recovery: Yes Indications Right foot diabetic ulcer with likely abscess Description of Procedure Patient was brought the operating room placed in the supine position the right lower extremity was prepped and draped in usual sterile manner a one-to-one mix of 1% lidocaine plain 0.5% Marcaine was utilized anesthetize the right foot in the area of the right fifth metatarsal phalangeal joint and particularly at that the plantar aspect the right fifth metatarsal. Next a timeout was taken patient verified procedure verified location verified anesthesia induced tourniquet inflated and the procedure began. Attention was directed to the ulceration present at the plantar aspect of the right foot fifth submetatarsal 5 there was a small opening measuring 0.5 cm in diameter this ulceration was extended for the incision both proximally and distally to allow the release of the purulent drainage from the plantar aspect of the right fifth metatarsal. All purulent drainage was removed utilizing a curved hemostat the area was opened to allow more of the purulent drainage to be released. At this point a pulse lavage was utilized to clean the area of the ulceration with plain saline. Next tissue cultures were obtained as well as deep cultures from the ulceration additionally sample the tissue was removed and sent to pathology for permanent specimen. Patient then had after having the area flushed with pulse lavage the ulceration was closed with 2-0 Prolene and 3-0 nylon in simple erupted stitches. Next compressive injury compressive and corrective dressings were applied to the right lower extremity the tourniquet was deflated the patient a good hemodynamic response noted to the right lower extremity. The patient was taken to the recovery room and then is admitted under medicine serv ice and will return to the floor under medicine service and podiatry will continue to follow. I attest to the content of the Intraoperative Record and any orders documented therein. Any exceptions are noted below.
[2024-07-23] MEDS: BACITRACIN OINT 14 GM TUBE ONE (21:01)
[2024-07-23] MEDS: LIDOCAINE 1% LOCAL 20 ML VIAL ONE (21:02)
[2024-07-23] MEDS: BUPIVACAINE 0.5 % 5 MG/1 ML MPF 30ML VIAL ONE (21:03)
[2024-07-23] MEDS ORDERED: GLUCOSE 40% GEL 15 GM TUBE PO PRN (21:28)
[2024-07-23] MEDS ORDERED: DEXTROSE 50% 50 ML SYRINGE IV PRN (21:28)
[2024-07-23] MEDS ORDERED: CARBOHYDRATES FOR HYPOGLYCEMIA PO PRN (21:28)
[2024-07-23] MEDS ORDERED: GLUCAGON FOR INJ 1 MG VIAL SQ PRN (21:28)
[2024-07-23] MEDS ORDERED: GLUCOSE 10 TAB/TUBE PO PRN (21:28)
--- NOTE | 2024-07-23 22:12 | Anesthesiology Progress Note ---
Date of Service July 23, 2024 Anesthesia Post Procedure Vital Signs Vital Signs: Temp Pulse Pulse Pulse Resp BP BP 07/23/24 21:47 36.6 C 60 15 07/23/24 21:24 65 07/23/24 21:20 37.0 C 62 16 07/23/24 21:10 36.4 C L 60 18 07/23/24 21:00 64 18 07/23/24 20:52 36.4 C L 61 18 07/23/24 19:34 62 18 07/23/24 19:00 60 16 119/60 07/23/24 17:45 60 18 126/60 07/23/24 17:20 60 07/23/24 15:54 60 16 07/23/24 15:54 60 20 119/62 07/23/24 15:20 36.6 C 84 18 121/69 BP Pulse Ox O2 Del Method O2 Flow Rate 07/23/24 21:47 120/70 96 Room Air 07/23/24 21:24 07/23/24 21:20 123/68 93 Room Air 07/23/24 21:10 134/71 95 Room Air 07/23/24 21:00 145/72 H 95 Room Air 07/23/24 20:52 146/80 H 100 Oxymask 4 07/23/24 19:34 96 Room Air 07/23/24 19:00 98 07/23/24 17:45 98 07/23/24 17:20 07/23/24 15:54 97 Room Air 07/23/24 15:54 98 07/23/24 15:20 99 Transfer of Care Handoff Completed per policy Notes Mental Status: alert / awake / arousable and participated in evaluation Patient Amnestic to Procedure: Yes Nausea / Vomiting: adequately controlled Pain: adequately controlled Airway Patency, RR, SpO2: stable & adequate BP & HR: stable & adequate Hydration State: stable & adequate Anesthetic Complications: no major complications apparent and Pt Satisfied with anesthetic care
[2024-07-23] MEDS: TAMSULOSIN HCL 0.4 MG CAP PO SCH (22:29)
[2024-07-23] MEDS: INSULIN ASPART PER UNIT CHARGE SC SCH (22:43)
[2024-07-23] MEDS: ZINC SULFATE 220 MG CAPSULE PO SCH (22:47)
[2024-07-24] MEDS ORDERED: INSULIN ASPART PER UNIT CHARGE SC SCH
[2024-07-24] MEDS: PIPERACILLIN/TAZOBACTAM 4.5 GM/100 ML BAG IV SCH (00:06)
[2024-07-24] MEDS: ACETAMINOPHEN 325 MG TAB PO PRN (05:28)
[2024-07-24] MEDS: DAPTOmycin 500 MG in SYRINGE 0 ML IV SCH (05:28)
[2024-07-24 06:56] LABS: Basophils # (auto) 0.04 K/uL (0.00-0.20); Basophils % (auto) 0.5 %; Eosinophils # (auto) 0.24 K/uL (0.00-0.50); Eosinophils % (auto) 3.1 %; Hematocrit (blood only) 31.7 % (42.0-52.0); Hemoglobin 10.2 g/dl (14.0-18.0); Immature Granulocytes # (auto) 0.03 K/uL (0.01-0.20); Immature Granulocytes % (auto) 0.4 %; Lymphocytes # (auto) 0.93 K/uL (1.20-3.40); Lymphocytes % (auto) 11.9 %; Mean Corpuscular Hemoglobin 28.4 pg (25.0-34.0); Mean Corpuscular Hgb Conc 32.2 g/dL (32.0-36.0); Mean Corpuscular Volume 88.3 fL (80.0-100.0); Mean Platelet Volume 11.1 fL (9.4-12.4); Monocytes # (auto) 0.68 K/uL (0.11-0.59); Monocytes % (auto) 8.7 %; Neutrophils # (auto) 5.87 K/uL (1.40-6.50); Neutrophils % (auto) 75.4 %; Platelet Count 171 K/uL (130-400); RDW Coefficient of Variation 15.1 % (11.5-14.5); RDW Standard Deviation 48.9 fL (36.4-46.3); Red Blood Count 3.59 M/uL (4.70-6.10); White Blood Count 7.79 K/ul (4.8-10.8)
[2024-07-24 07:09] LABS: BUN Creatinine Ratio 15.2 (10-20); Calcium 8.7 mg/dl (8.6-10.3); Creatinine Clr Calc Pharmacy 89.5 ml/min; Potassium 4.4 mmol/L (3.5-5.1)
--- OUTSIDE RECORDS SUMMARY | 2024-07-24 07:18 | External Medical Summary | Summary of Care ---
Author Name Unknown Organization [facility] [address] [facility] [facility] [address] Phone [phone] Care Team Providers Care Drum Stenciler Name Role Phone Mary Flood Primary Care Provide r Reason for Visit * Reason Comments Dosage Adjustment In Person (Anticoag Cl inic) Encounter Details Date Type Department Care Team (Latest Contact Info) Description 07/23/2024 11:30 AM EST Anticoagulation Pharmacy, [facility] [address] [facility] [place] [address] Pharmacist1, [facility] [address] [facility] [place] [address] Chronic atrial fibrillation (HCC)*; Anticoagulation management encounter Allergies No known active allergiesdocumented as of this encounter (statuses as of 07/23/2024) Medications ASPIRIN 81 MG PO CHEWIndications: Acute coronary syndrome (HCC) 1 Tab Oral Daily 30 Tab 0 04/25/20 10 Active INDOMETHACIN 25 MG PO CAPS Take by mouth. Acti ve nitroglycerin (NITROSTAT) 0.4 MG SUBLIndications: Examination following surgery,Acute coronary syndrome (HCC) Place 1 Tab under the tongue every 5 minutes as needed for Pain, Chest. Up to 3 doses in 15 minutes. 25 Tab 11 12/21/19 16 Active sildenafil (REVATIO) 20 MG Tablet Take 5 Tabs by mouth daily as needed for Erectile Dysfunction. 30 Tab 6 03/16/20 19 Active Ascorbic Acid 500 MG TABS Take by mouth. Act jessy Zinc 50 MG Oral Tablet Take 1 Tablet by mouth at bedtime. Active Vitamin D 25 MCG (1000 UT) Oral Tablet Take 1 Tablet by mouth daily. Active Janumet XR 50-1000 MG Oral Tablet Extended Release 24 Hour Take 1 Tablet by mouth in the morning and 1 Tablet before bedtime. 06/19/20 21 Active Tamsulosin HCl 0.4 MG Oral Capsule (Flomax)Indicati ons:in evening Take by mouth 1 Capsule in the morning. 90 Capsule 01/12/20 22 Active Dulaglutide 1.5 MG/0.5ML Subcutaneous Solution Pen-injector Inject 1.5 mg under the skin once a week. Active Warfarin Sodium 5 MG Oral Tablet (Coumadin)Indica tions:Examinatio n following surgery,Chronic atrial fibrillation (HCC) TAKE 2 TABLETS ON MONDAYS AND FRIDAYS, AND TAKE 1 TABLET ALL OTHER DAYS OR DIRECTED BY ANTICOAGULATION CLINIC (TAKE IN THE EVENING) 120 Tablet 3 06/10/20 23 Active Losartan Potassium 50 MG Oral Tablet (Cozaar)Indicati ons:HTN, goal below 140/80 TAKE 1 TABLET DAILY 90 Tablet 3 10/28/19 24 Active Metoprolol Succinate ER 25 MG Oral Tablet Extended Release 24 Hour (toPROL XL)Indications:H TN, goal below 140/80 TAKE 1 TABLET DAILY 90 Tablet 3 01/27/20 24 Active Atorvastatin Calcium 40 MG Oral Tablet (Lipitor)Indicat ions:DM type 2 causing vascular disease (HCC),Dyslipidem ia, goal LDL below 70 TAKE 1 TABLET IN THE EVENING 90 Tablet 07/05/20 24 Active documented as of this encounter (statuses as of 07/23/2024) Active Problems Problem Noted Date Diagnosed Date Coronary artery disease invo lving [place] coronary artery of [place] heart without angina pectoris 10/16/2018 Cardiac pacemaker in situ 11/25/2017 Prostate cancer 01/09/2017 Tachy-rodrigo syndrome 10/26/2015 Mild obstructive sleep apnea 10/18/2015 Overview (10/18/2015): HST 10/11/15 - KRISTOPHER 7.4, <89% 10 mins Atrioventricular block, Mobitz type 1, [place]ac h 09/02/2015 Chronic atrial fibrillation 07/21/2015 Peyronie's disease 03/29/2015 Preoperative cardiovascular examination 10/04/19 13 HTN, GOAL BELOW 140/80 03/24/2012 Overview: Per HTN Protocol #27. Dyslipidemia, goal LDL below 70 11/14/2010 Phlebitis and thrombophlebitis 04/23/2010 Acute posthemorrhagic anemia 04/19/2010 s/p CABG x 3 04/19/2010 DM type 2 causing vascular disease 04/14/2010 Backache 04/14/2010 documented as of this encounter (statuses as of 07/23/2024) Resolved Problems Problem Noted Date Diagnosed Date Resolved Date HTN, goal below 130/80 04/14/201003/27 Overview: Per HTN Protocol #27. Acute coronary syndrome 04/14/201010/03 Dyslipidemia, goal LDL below 100 04/14/2010 11/14/2010 documented as of this encounter (statuses as of 07/23/2024) Immunizations Name Administration Dates Next Due DTaP Dipth/Tet/Acell Pertussis (Infanrix), Peds 05/06/2008 Pneumococcal Conjugate Vacc, 13 Valent (Prevnar) 05/07/2019 Pneumococcal Polysaccharide PPV23 (Pneumovax) TDAP (age 10 and older)(Boostrix) 02/02/2017,09/2007 Zoster Vaccine Recombinant (Shingrix) 02/19/2022 ,11/29/2021 documented as of this encounter Social History Tobacco Use Types Packs/Day Years Used Date Smoking Tobacco: Never Smokeless Tobacco: Never Alcohol Use Standard Drinks/Week Comments Yes 0 (1 standard drink = 0.6 oz pur e alcohol) occasional Utilities Answer Date Recorded Do you have trouble paying y our heating, water, or electric bill? (Adult - for ages 18 years and over) Not on file 01/21/2024 Is your family able to pay t he heat, water, or electric bill? (Household - for ages 0-17 years) Not on file 01/21/2024 Does your family have access to good internet? (Household - for ages 0-17 years) Not on file 01/21/2024 Social Connections Answer Date Recorded How often do you feel lonely or isolated from those around you? (Adult - for ages 18 years and over) Not on file 01/21/2024 Sex and Gender Information Value Date Recorded Sex Assigned at Not on file Legal Sex Male 6:46 AM EST Gender Identity Not on file Sexual Orientation Not on file documented as of this encounter Progress Notes * Vishnu Leach RPh - 07/23/2024 11:13 AM EST Medication Therapy Disease Management - Anticoagulation Renzo Fitzgerald is an 68 year old male who presents to clinic for anticoagulation management. Patient Findings Negatives: Signs/symptoms of thrombosis, Signs/symptoms of bleeding, Change in health, Change in alcohol use, Change in activity, Upcoming invasive procedure, Missed doses, Extra doses, Change in medications, Change in diet/appetite, Bruising INR Result As of 07/23/2024 INR goal: 2.0-3.0 INR used for dosin.1 (07/23/2024) Warfarin Plan As of 07/23/2024 Full warfarin instructions: 10 mg every Corin; 5 mg all other days No change documented: Vishnu Leach RPh Next INR check: 09/10/2024 Repeat PT/INR in 6 week(s) Weekly dose: not changed I spent a total of 10-19 minutes (exact time 14 mins) on the date of service in preparation, delivery, and documentation of the care provided to Renzo Fitzgerald excluding any time spent in the performance of separately billed services or time spent by another provider/QHP. Vishnu Pacheco RPh, [facility] Clinical Pharmacist Medication Therapy Disease Management 07/23/2024, 11:21 AM documented in this encounter Plan of Treatment Upcoming Encounters Date Type Department Care Team (Late st Contact Info) Description 08/27/2024 10:00 AM EST Immunization/Injection Hematology/Oncology Treatment, [place] [address] [facility] [place] [address] Tracy, Chair [address] [place] [address] [place] [address] 09/10/2024 10:30 AM EST Laboratory Laboratory [facility] Tracy [address] [place] [id number] Avila Molina [facility] [address] [facility] [place], [place] [address] 09/10/2024 10:40 AM EST Anticoagulation Pharmacy, [facility] [address] [facility] [place] [address] Pharmacist1, [facility] [address] [facility] [place] [address] 09/10/2024 11:00 AM EST Office Visit Hematology/Oncology [facility] [address] [facility] [place] [phone] Ying Koroma CRNP [address] [facility] [address] 09/15/2024 10:30 AM EST Office Visit Cardiology, [facility] [address] [facility] [place] [address] [address] Murillo O, DO [address] [place] [address] Scheduled Procedures Name Priority Associated Diagnoses Date/Ti me COLONOSCOPY FLEXIBLE PROXIMA L DIAGNOSTIC Recall Screening for malignant neoplasm of colon Health Maintenance Due Date Last Done Comments Depression Screening 1965 Albumin/Creatinine Ratio 1971 Diabetic Eye Exam 1971 Diabetic Foot Exam 1971 Hepatitis C Screening 1971 Cologuard 1998 Fecal Occult Blood Test 1998 Sigmoidoscopy 1998 Pneumococcal Vaccine: 65+ Years (3 of 3 - PPSV23 or PCV20) 05/07/2020 05/07/2019, 05/04/2010 HbA1c 07/13/2022 01/11/2022, 08/2020, 12/08/2019, Additional history exists COVID-19 Vaccine ( season) 2024 Influenza Vaccine (FLU shot) (#1) 2024 GFR 03/11/2025 03/11/2024, 03/2024, 01/03/2023, Additional history exists DTap/Tdap Vaccines (4 - Td or Tdap) 02/02/2027 02/02/2017, 05/06/2008, 05/06/2008 Colonoscopy 03/11/2029 03/11/2019, 03/11/2019 Colorectal Cancer Screening 03/11/2029 Zoster Vaccines Completed 02/19/2022, 11/29/2021 HPV (Gardasil) Vaccine Aged Out No lo nger eligible based on patient's age to complete this topic Hepatitis B Vaccine Aged Out No longe r eligible based on patient's age to complete this topic MENINGOCOCCAL (MENACTRA/MENVEO) Aged Out No longer eligible based on patient's age to complete this topic documented as of this encounter Medical Devices Implanted Type Area Complex Care Nurse Practitioner Device Identifier Shelf Expiration Date Model / Serial / Lot Sut Steel 6 [id number] - [id number] Implanted:Qty: 6 on 04/18/2010 at OR [facility] N/A: Chest DO NOT USE 03/03/2015 [id number] / / [id number] Graft Marker Coronary - [id number] Implanted:Qty: 2 on 04/18/2010 at OR [facility] N/A: Chest VM CARDIO VASCULAR 04/16/2011 [id number] / / [id number] Lens Intraoc 13.0 - [id number] - [id number] Implanted:Qty: 1 on 01/12/2020 by Kvng Denney MD at OR [facility] Right: Eye [employer] 11/03/2023 [id number] / [id number] / Lens Intraoc 12.0 - [id number] - [id number] Implanted:Qty: 1 on 01/19/2020 by Kvng Denney MD at OR [facility] Left: Eye [employer] 07/04/2024 [id number] / [id number] / documented as of this encounter Procedures Procedure Name Priority Date/Time Associated Diagnosis Comments INR FINGERSTICK, POINT OF CARE STAT 07/23/2024 11:17 AM EST Chronic atrial fibrillation (HCC) Anticoagulation management encounter documented in this encounter Results * INR FINGERSTICK, POINT OF CARE (07/23/2024 11:17 AM EST) Fingerstick INR 2.1 INR 4 11:18 AM EST [facility] Blood 07/23/2024 11:1 7 AM EST 07/23/2024 11:18 AM EST Narrative [facility] - 07/23/2024 11:18 AM EST Therapeutic ranges for non-operative patients: Prophylaxsis/treatment of DVT: (Range:2.0-3.0) Treatment of pulmonary embolism:(Range:2.0-3.0) Prevention of systemic embolism from: -tissue heart valves -acute myocardial infarction -valvular heart disease -atrial fibrillation (Range: 2.0-3.0) Mechanical prosthetic valves: (Range: 2.5-3.5) Vishnu Junior V, [facility] POINT OF CARE TE ST DOCKED DEVICE UNSOLICITED RESULTS Final Result [facility] [address] [place] [address] documented in this encounter Visit Diagnoses Diagnosis Chronic atrial fibrillation (HCC)- Primary Atrial fibrillation Anticoagulation management encounter Encounter for therapeutic drug monitoring documented in this encounter Advance Directives * Full Code (Latest Code Status on File) Date Activated Date Inactivated Comments 04/18/2010 7:50 PM 04/25/2010 4:53 PM This order reflects the patients wishes and were consensually agreed upon. * Full Code Date Activated Date Inactivated Comments 04/14/2010 3:33 PM 04/18/2010 7:47 PM This order r eflects the patients wishes and were consensually agreed upon. Question Answer Comments Discussion of Advance Directives occurred with: Patient Does the patient have a Living Will? No Does the patient have Health Care Power of Attor isadora? No Care Teams Drum Stenciler Relationship Specialty Start Date End Date Mary Flood CRNP [address] [place] [address] [place] [address] PCP - General Nurse Practitioner 07/12/20 documented as of this encounter
--- OUTSIDE RECORDS SUMMARY | 2024-07-24 07:18 | External Medical Summary ---
Author Name Unknown Address Unknown Organization K09[facility] [place] [address] Laboratory Report Ordering Provider Test Date Status OSEI ARELLANO V 07/23/2024 11:17:05 Final Therapeutic ranges for non-o perative patients:
Prophylaxsis/treatment of DVT: (Range:2.0-3.0)
Treatment of pulmonary embolism:(Range:2.0-3.0)
Prevention of systemic embolism from:
-tissue heart valves
-acute myocardial infarction
-valvular heart disease
-atrial fibrillation
(Range: 2.0-3.0)
Mechanical prosthetic valves: (Range: 2.5-3.5) Observation Date Value Abnormality Reference (Units ) Status INR in Capillary blood by Coagulation assay 07/23/2024 11:17:05 2.1 (INR) Final Performing Location [facility] [place] [address]
[2024-07-24 07:26] LABS: INR 1.8 (0.9-1.1); Prothrombin Time 18.4 Seconds (9.0-12.0)
[2024-07-24] MEDS: ZINC SULFATE 220 MG CAPSULE PO SCH (08:03)
[2024-07-24] MEDS: METOPROLOL SUCC 25MG EXT REL TAB PO SCH (08:04)
[2024-07-24] MEDS: CHOLECALCIFEROL 25 MCG (1000 UNITS) TAB PO SCH (08:04)
[2024-07-24] MEDS: LOSARTAN POTASSIUM 50 MG TAB PO SCH (08:04)
[2024-07-24] MEDS: ASPIRIN 81 MG ECTAB PO SCH (08:04)
--- NOTE | 2024-07-24 10:10 | Hospitalist Progress Note ---
Date of Service July 24, 2024 Assessment & Plan (1) Diabetic ulcer of right foot: Plan: 68 y/o male with chronic diabetic ulcer of right foot; POD#1 after wound debridement History of submetatarsal 5 ulceration right foot with purulent discharge that was worsening on days leading to admission Sent from podiatry office due to concern for OM XRAY done on ED showing possible OM in 5th metatarsal Leukocytosis resolved; AF Continue IV Zosyn and Daptomycin for empiric treatment; MRSA swab ordered; may dc Daptomycin if negative Wound culture pending (2) Diabetic nephropathy: Plan: hold Janvet and tirzepatide A1C: 7.7 NovoLog scale (3) BPH NOS w ur obs/LUTS: Plan: Continue Flomax (4) CAD (coronary artery disease): Plan: Hx of CABG X 3 (2009) Aspirin 81 mg continue Metoprol and Losartan (5) Pacemaker: Plan: Noted (6) PAD (peripheral artery disease): Plan: continue aspirin Atorvastatin hold in the setting of IV Dapto (7) Dyslipidemia: Plan: Atorvastatin hold (8) Paroxysmal atrial fibrillation: Plan: Metroprolol Resume Warfarin Last taken 07/22 INR 1.8 Admission and Anticipated Discharge Date Admission Date: July 23, 2024 Supervising Physician Co-Signing Physician Notes I personally examined the patient and verified all kiser points of history and exam, discussed case, and agree with decision making with Dr Jauregui Feeling good overall. No significant pain. Notes that prior to surgery he was having a good bit of foot pain that has now been alleviated. Son presentupdated both patient and son to the best my ability. Vitals noted, in general he is awake and alert pleasant no distress. HEENT normocephalic atraumatic mucous membranes moist. Right foot dressed. No tracking erythema. Labs and diagnostics noted. Diabetic foot infection/abscessnow post drainage. Continue broad antibiotics pending culture results. Applauded patient's improvement in glycemic control, encouraged to continue. Discussed how longstanding uncontrolled diabetes does lead to microvascular ischemiabut discussed that at least with better control moving forward he can hopefully at least not have things worsen. otherwise as above Subjective Evaluated at bedside, found to be awake alert and oriented in all spheres, afebrile, no acute distress. Patient states that he does have some minor discomfort in his right foot but has decreased compared to days prior. On the days leading to his visit with podiatry office, patient states that his left foot was getting slightly tender and wound on fifth toe was draining increasing amounts of purulent fluid and was malodorous. Does not follow with wound clinic as an outpatient since he does see mold maker apprentice every other week. No fevers, chills, weakness, chest pain, shortness of breath, nausea/vomiting/diarrhea, or any other systemic symptoms. Review of Systems Review of Systems: as per HPI Physical Exam Constitutional: WD/WN, vitals as above Eyes: PERRL, conjunctivae normal, anicteric sclerae Respiratory: normal respiratory effort, lungs clear to auscultation Cardiovascular: RRR, no murmur, no edema Gastrointestinal (Abdomen): normal bowel sounds, soft, nontender, no hepatosplenomegaly Skin: right foot on clean bandages Results & Data Results & Data Vital Signs (Past 12 Hours) Vital Signs Temp Pulse Pulse Resp BP Pulse Ox O2 Del Method 07/24/24 07:55 36.9 C 61 19 121/69 94 Room Air 07/24/24 03:37 37.1 C 68 17 122/77 96 Room Air 07/23/24 22:52 63 Resident Activity Tracking Resident Involvement: Resident Care Provided Care Provided: Adult Hospital Medicine
--- NOTE | 2024-07-24 13:34 | Podiatry Consultation ---
Date of Consultation July 24, 2024 Assessment & Plan (1) Diabetic ulcer of right foot: Dressing change performed today all dressings removed and new dressings were reapplied consisting of Adaptic gauze roll gauze and Ole bandage Will await final culture results recommend and will agree with medicine's rec ommendations for antibiotics postdischarge. Once final results received patient is stable to be discharged. He is not having a fever his pain has been reduced his white cell count within normal range. Swelling and erythema all reduced. I will be in to round on patient on Saturday but I will not be able to round on Saturday, discussed with patient as well today. Once final culture results are received patient may be discharged I would prefer that this be done on Saturday after I perform a dressing change and checkup. Once discharged I will also set up for follow-up with me in the office on . He may continue to rest and elevate his right lower extremity. He may walk to and from the bathroom but otherwise I would like him to rest and elevate the right foot. I also put in a consult for orthotics to see patient it would be beneficial if they can make him a postop shoe with offloading to the right fifth metatarsal area prior to discharge. History of Present Illness Reason for Consultation: Status post right foot fifth metatarsal ulcer/abscess incision and debridement Attending Physician: Saeed Zuluaga DO History of Present Illness Patient is a very pleasant 68-year-old male seen at bedside today following a right foot fifth metatarsal incision and debridement Postop day #1 Date of surgery July 23, 2024 Patient doing well at bedside he noted that he had no pain or discomfort his white count was significantly reduced to normal. Essentially at this point just waiting for cultures to return to identify which antibiotics are appropriate to discharge patient with. Otherwise he is stable from a podiatry standpoint to be discharged once these results are back. -He noted no pain or discomfort -There has been a reduction in the erythema and swelling not yet quite to normal in terms of the swelling but erythema has been significantly improved -Pain significantly reduced -Patient had no acute concerns when seen at bedside Allergies Allergy/AdvReac Type Severity Reaction Status Date / Time No Known Allergies Allergy Verified 06/12/24 12:48 Home Medications Medication Instructions Recorded Confirmed Type aspirin 81 mg tablet,delayed 81 mg PO QAM 06/26/18 07/23/24 History release metoprolol succinate 25 mg 25 mg PO QAM 06/26/18 07/23/24 History tablet,extended release 24 hr (Toprol XL) zinc 50 mg tablet 50 mg PO HS 07/10/21 07/23/24 History losartan 50 mg tablet (Cozaar) 50 mg PO QAM 09/21/21 07/23/24 History warfarin 5 mg tablet 1 mg PO UD 09/21/21 07/23/24 History cholecalciferol (vitamin D3) 25 25 mcg PO QAM 06/26/22 07/23/24 History mcg (1,000 unit) capsule ascorbic acid (vitamin C) 500 mg 500 mg PO QAM 08/07/23 07/23/24 History capsule sitagliptin phos 50 mg-metformin 1 tab PO BID #180 tabs 10/28/23 07/23/24 Rx ER 1,000 mg tablet,extend rel 24h mp (Janumet XR) blood sugar diagnostic (FreeStyle #100 ea 01/10/24 06/12/24 Rx Lite Strips) atorvastatin 40 mg tablet (Lipitor) 40 mg PO HS 02/12/24 07/23/24 History tamsulosin 0.4 mg capsule (Flomax) 0.4 mg PO HS 02/12/24 07/23/24 History meclizine 25 mg tablet 25 mg PO TID PRN dizziness #30 tabs 03/05/24 07/23/24 Rx tirzepatide 7.5 mg/0.5 mL 7.5 mg (0.5 mL) subcut WK #2 mL 06/25/24 07/23/24 Rx subcutaneous pen injector (Samson) doxycycline hyclate 100 mg tablet 100 mg PO BID #42 tabs 07/11/24 07/23/24 Rx sulfamethoxazole 800 1 tab PO Q12H 14 days #28 tabs 07/11/24 07/23/24 Rx mg-trimethoprim 160 mg tablet (Bactrim DS) Patient History Medical History Diabetic peripheral neuropathy BPH (benign prostatic hyperplasia) Anemia Diabetes mellitus, type 2 Dyslipidemia HTN (hypertension) PAD (peripheral artery disease) Paroxysmal atrial fibrillation per cardiology records, patient unaware CAD (coronary artery disease) CABG x3 (2009) History of prostate cancer 2016 chemo/radiation - in remission Hx of sepsis 2020 -- treated at [facility] r/t kidney stones and uretral stent History of gout 2013 "No attacks in 10 years" Diverticular disease 2019 patient denies Hx of renal calculi Foot ulcer Right History of myocardial infarction > CABG x3 (2009) History of COVID-19 2020- mild symptoms (during kidney stone and sepsis treatments) > resolved Hx MRSA infection right foot infection in 2020 - no recent issues SUE (acute kidney injury) Hx 2020 Sciatica ALISSA (obstructive sleep apnea) no device, pt denies Intracanalicular fibroadenoma per records, patient unaware Surgical History History of arthroplasty of left shoulder 01/31/23 History of lithotripsy 04/2021 S/P CABG (coronary artery bypass graft) CABG x3 (2009) History of arthroscopy of right shoulder RCR x2 History of arthroscopy of left shoulder RCR x2 2020 S/P placement of cardiac pacemaker 11/13/17 [employer] [facility] S/P cystoscopy with ureteral stent placement 04/10/21 History of arthroplasty of right shoulder 2022 History of total bilateral knee replacement (TKR) History of cataract surgery bilateral 2021 Status post right foot surgery right foot debridement for MRSA 08/10/20 History of hip replacement left 2019 S/P appendectomy H/O prostate biopsy Family History Unknown Prostate cancer self Father Diabetes Myocardial infarction Other No family history of adverse response to anesthesia Denies family history of Ovarian cancer Breast cancer Colorectal cancer Social History Smoking Status: Unknown if ever smoked Second Hand Exposure: No; Do You Dip or Chew Tobacco: No; Hx Alcohol Use: Yes Alcohol type: hard liquor Alcohol Intake Frequency: Monthly or Less Hx Substance Use: No Preferred Language: Ivorian Communication Ability: Effective Visual Impairment: Limited Hearing Ability: Normal Manager Credit Collections Required: No Beliefs That Will Affect Care: None marital status: / Current Living Situation: Alone current occupational status: retired How many Children do You have: 2 How many Children do You have Comment: local and able to assist as needed Feels Safe at Home: Yes Safety Concerns: Feels Safe At This Time Childhood Exposure to Second-Hand Smoke: No Diet: low carbohydrate and regular caffeine: Yes during the past year weight has: decreased > 10 lbs Dental Care, Regularly: Yes Physical Activity Frequency: 1-2 Times per Week Seatbelt Use: sometimes Sunscreen Use: No Do you think of yourself as: straight/heterosexual Gender Identity: Male Assistive Devices: Glasses Physical Exam Skin: Right foot dressings removed incision evaluated, all sutures intact no dehiscence there is minimal reduction in swelling and erythema there is no purulent drainage from incisional site. Dorsalis pedis pulse palpable 2 out of 4, pain reduced. Stable postop appearance of the right foot following incision and debridement right submetatarsal 5. Results & Data Vital Signs (Past 12 Hours) Vital Signs Temp Pulse Resp BP Pulse Ox O2 Del Method 07/24/24 10:30 36.6 C 63 19 114/68 94 Room Air 07/24/24 07:55 36.9 C 61 19 121/69 94 Room Air 07/24/24 03:37 37.1 C 68 17 122/77 96 Room Air
[2024-07-24] MEDS: WARFARIN SOD 1 MG TAB PO SCH (16:39)
[2024-07-24] MEDS ORDERED: WARFARIN SOD 5 MG TAB PO ONE (16:58)
[2024-07-24] MEDS: WARFARIN SOD 5 MG TAB PO SCH (17:34)
--- NOTE | 2024-07-24 18:27 | Billing Data ---
Date of Service July 24, 2024 Coding Level of Care Code 01572 SUB INP/OBS CARE MIN
[2024-07-24] MEDS: POLYETHYLENE (MIRALAX) 17 GM PACK PO PRN (19:26)
[2024-07-24] MEDS: INSULIN ASPART PER UNIT CHARGE SC SCH (20:56)
[2024-07-25 07:44] LABS: Basophils # (auto) 0.04 K/uL (0.00-0.20); Basophils % (auto) 0.7 %; Eosinophils # (auto) 0.29 K/uL (0.00-0.50); Eosinophils % (auto) 4.9 %; Hematocrit (blood only) 33.8 % (42.0-52.0); Immature Granulocytes # (auto) 0.03 K/uL (0.01-0.20); Immature Granulocytes % (auto) 0.5 %; Lymphocytes # (auto) 0.84 K/uL (1.20-3.40); Lymphocytes % (auto) 14.2 %; Mean Corpuscular Hemoglobin 28.5 pg (25.0-34.0); Mean Corpuscular Hgb Conc 32.5 g/dL (32.0-36.0); Mean Corpuscular Volume 87.6 fL (80.0-100.0); Mean Platelet Volume 10.8 fL (9.4-12.4); Monocytes # (auto) 0.46 K/uL (0.11-0.59); Monocytes % (auto) 7.8 %; Neutrophils # (auto) 4.27 K/uL (1.40-6.50); Neutrophils % (auto) 71.9 %; Platelet Count 173 K/uL (130-400); RDW Coefficient of Variation 15.2 % (11.5-14.5); RDW Standard Deviation 48.7 fL (36.4-46.3); Red Blood Count 3.86 M/uL (4.70-6.10); White Blood Count 5.93 K/ul (4.8-10.8)
[2024-07-25 08:06] LABS: Creatinine Clr Calc Pharmacy 87.6 ml/min; Potassium 4.1 mmol/L (3.5-5.1)
[2024-07-25 08:08] LABS: INR 1.5 (0.9-1.1); Prothrombin Time 15.7 Seconds (9.0-12.0)
--- NOTE | 2024-07-25 08:43 | Hospitalist Progress Note ---
Date of Service July 25, 2024 Assessment & Plan (1) Diabetic ulcer of right foot: Plan: 68 y/o male with chronic diabetic ulcer of 5th metatarsal of right foot; POD#2 after incision and debridement XRAY done on ED showing possible OM in 5th metatarsal Leukocytosis resolved; AF Continue IV Zosyn Given negative MRSA nares, will dc Daptomycin Wound culture pending; will adjust abx therapy and duration pending results Podiatry consulted -- plan to change dressing tomorrow; okay for discharge once cultures come back and abx therapy adjusted; f/u in office on Saturday (2) Paroxysmal atrial fibrillation: Plan: Continue Metroprolol Resume Warfarin yesterday; patient on 5 mg daily save for where he takes 10 mg INR in am labs of 1.5 (subtherapeutic; goal INR between 2-3) Continue monitoring labs (3) Diabetic nephropathy: Plan: Hold Janvet and tirzepatide A1C: 7.7 NovoLog scale (4) BPH NOS w ur obs/LUTS: Plan: Continue Flomax (5) CAD (coronary artery disease): Plan: Hx of CABG X 3 (2009) Aspirin 81 mg Continue Metoprol and Losartan (6) Pacemaker: Plan: Noted (7) PAD (peripheral artery disease): Plan: Continue Aspirin and Atorvastatin (8) Dyslipidemia: Plan: Resume atorvastatin now that Daptomycin is dc Admission and Anticipated Discharge Date Admission Date: July 23, 2024 Supervising Physician Co-Signing Physician Notes I personally examined the patient and verified all kiser points of history and e xam, discussed case, and agree with decision making with Dr Jauregui continues to be feeling good overall. No complaints. Vitals noted, in general he is awake and alert pleasant no distress. HEENT normocephalic atraumatic mucous membranes moist. Right foot dressed. No tracking erythema. Labs and diagnostics noted. Diabetic foot infection/abscessnow post drainage. Continue broad antibiotics pending culture results. Applauded patient's improvement in glycemic control, encouraged to continue. discussed exercise once he recovers as well. Previously discussed how longstanding uncontrolled diabetes does lead to microvascular ischemiabut discussed that at least with better control moving forward he can hopefully at least not have things worsen. will need to d/w podiatry re ?concern for osteomyelitis intraop (and get MRI if any doubt); otherwise awaiting surgical cultures and continue current treatment otherwise as above Subjective Patient evaluated at bedside and found to be AAOx4, afebrile, and in NAD. States his foot pain is still there but much more mild. Has been trying to move around a little more but not putting weight on right foot. No new fevers, chills, weakness, N/V/D, or any other systemic sxs. Review of Systems Review of Systems: as per HPI Physical Exam Physical Exam: right foot covered by clean bandages and no erythema noted in exposed toes and no skin changes above bandage, non tender; unremarkable exam of left foot Constitutional: WD/WN, vitals as above Eyes: PERRL, conjunctivae normal, anicteric sclerae Respiratory: normal respiratory effort, lungs clear to auscultation Cardiovascular: RRR, no murmur, no edema Gastrointestinal (Abdomen): normal bowel sounds, soft, nontender, no hepatosplenomegaly Results & Data Results & Data Vital Signs (Past 12 Hours) Vital Signs Temp Pulse Pulse Resp BP Pulse Ox O2 Del Method 07/25/24 08:18 36.8 C 64 18 123/70 94 Room Air 07/25/24 03:33 36.4 C L 58 L 17 123/68 95 Room Air 07/24/24 23:24 36.8 C 62 17 114/68 95 Room Air 07/24/24 22:00 67 Resident Activity Tracking Resident Involvement: Resident Care Provided Care Provided: Adult Hospital Medicine
--- NOTE | 2024-07-25 14:59 | Billing Data ---
Date of Service July 25, 2024 Coding Level of Care Code 69985 SUB INP/OBS CARE
[2024-07-25] MEDS: ATORVASTATIN 40 MG TAB PO SCH (20:29)
[2024-07-26 07:16] LABS: Basophils # (auto) 0.03 K/uL (0.00-0.20); Basophils % (auto) 0.5 %; Eosinophils # (auto) 0.28 K/uL (0.00-0.50); Eosinophils % (auto) 4.2 %; Hematocrit (blood only) 34.8 % (42.0-52.0); Hemoglobin 11.4 g/dl (14.0-18.0); Immature Granulocytes # (auto) 0.03 K/uL (0.01-0.20); Immature Granulocytes % (auto) 0.5 %; Lymphocytes # (auto) 0.97 K/uL (1.20-3.40); Lymphocytes % (auto) 14.7 %; Mean Corpuscular Hemoglobin 28.6 pg (25.0-34.0); Mean Corpuscular Hgb Conc 32.8 g/dL (32.0-36.0); Mean Corpuscular Volume 87.4 fL (80.0-100.0); Mean Platelet Volume 10.9 fL (9.4-12.4); Monocytes # (auto) 0.53 K/uL (0.11-0.59); Neutrophils # (auto) 4.75 K/uL (1.40-6.50); Neutrophils % (auto) 72.1 %; Platelet Count 203 K/uL (130-400); RDW Coefficient of Variation 14.7 % (11.5-14.5); RDW Standard Deviation 47.7 fL (36.4-46.3); Red Blood Count 3.98 M/uL (4.70-6.10); White Blood Count 6.59 K/ul (4.8-10.8)
[2024-07-26 07:38] LABS: BUN Creatinine Ratio 16.5 (10-20); Calcium 9.2 mg/dl (8.6-10.3); Creatinine Clr Calc Pharmacy 95.8 ml/min; Potassium 4.2 mmol/L (3.5-5.1)
[2024-07-26 07:41] VITALS: PULSE 63; RESP 17
[2024-07-26 07:41] LABS: INR 1.4 (0.9-1.1); Prothrombin Time 14.5 Seconds (9.0-12.0)
--- NOTE | 2024-07-26 09:31 | Podiatry Progress Note ---
Date of Service July 26, 2024 Assessment & Plan (1) Diabetic ulcer of right foot: Plan: At this point I do feel patient is stable for discharge his white blood cell count has been within the normal range and has been reduced since the date of surgery. He has been seen by orthotics and had proper offloading to his postop shoe he was instructed to only wear that shoe. He is allowed to walk short distances only and I discussed this with patient at bedside today. He can be discharged on antibiotics per medicine recommendation but there is likely a low probability of osteomyelitis remaining in his fifth metatarsal. During the time of surgery the purulent drainage seems to be localized within the area where his ulcer had a small opening that proved from plantar to dorsal. And since having this flushed and cleaned there has been significant improvement. He has follow- up with me in my office on Saturday at 1130. Admission and Anticipated Discharge Date Admission Date: July 23, 2024 Subjective Patient is a very pleasant 68-year-old male seen at bedside today status post right foot fifth metatarsal ulcer incision and debridement. Postop day #3 Date of surgery July 23, 2024 Physical Exam Skin: Bandages removed incision checked all sutures intact no dehiscence no erythema no swelling essentially all the erythema and swelling present prior to surgery has resolved patient has no discomfort or pain he is resting comfortably in bed with leg elevated. All dressings removed and dressings reapplied consisting of Adaptic gauze roll gauze and an Ole bandage. Dorsalis pedis pulse palpable 2 out of 4. Significant reduction of swelling even noted dorsally. Results & Data Results & Data Vital Signs (Past 12 Hours) Vital Signs Temp Pulse Pulse Resp BP BP Pulse Ox 07/26/24 07:39 36.3 C L 63 17 136/77 98 07/26/24 06:51 60 07/26/24 02:53 36.3 C L 60 16 133/67 95 07/25/24 23:44 60 07/25/24 23:00 36.6 C 59 L 18 133/77 96 O2 Del Method 07/26/24 07:39 Room Air 07/26/24 06:51 07/26/24 02:53 Room Air 07/25/24 23:44 07/25/24 23:00 Room Air
--- NOTE | 2024-07-26 10:10 | Discharge Summary ---
Date of Service July 26, 2024 Admission HPI Per Admitting Provider 68 y/o male with PMH of diabetic type 2, hyperlipidemia, CAD, hx CABG, on pacemaker, Afib on warfarin, and hyperlipidemia patient had a know diabetic right foot. Patient was sent from Podiatry office due to swelling of the right foot with significant purulent drainage. Concern of Osteomyelitis as well. Patient refers not being consistent with diabetic shoes. He had been hunting the past weeks. He refers had a normal shoes with a opening for his 5th toe. Follows with Dr.R Calles every 2 weeks. Denied any SOB, chest pain with hunting or daily activities. Refers take his mediation daily. currently on Warfarin. Last INR was 2.1. He takes 1 mg daily and 2 mg on Denied any chest pain, sob, palpitations, nausea, abdominal pain or any other symptoms Ed course: IV zosyn and IV Vanco started. Xray of the foot done. Admission Exam Per Admitting Provider Constitutional: WD/WN, vitals as above Eyes: PERRL, conjunctivae normal, anicteric sclerae Respiratory: normal respiratory effort, lungs clear to auscultation Cardiovascular: RRR, no murmur, no edema Gastrointestinal (Abdomen): normal bowel sounds, soft, nontender, no hepatosplenomegaly Skin: right foot on clean bandages Principal Diagnosis Diabetic Foot Ulcer Discharge Exam right foot covered by clean bandages and no erythema noted in exposed toes and no skin changes above bandage, non tender; unremarkable exam of left foot Constitutional WD/WN, vitals as above Eyes PERRL, conjunctivae normal, anicteric sclerae Respiratory normal respiratory effort, lungs clear to auscultation Cardiovascular RRR, no murmur, no edema Gastrointestinal (Abdomen) normal bowel sounds, soft, nontender, no hepatosplenomegaly Discharge Data Allergies Allergy/AdvReac Type Severity Reaction Status Date / Time No Known Allergies Allergy Verified 06/12/24 12:48 Consultations 07/23/24 15:27 ED Decision to Admit Stat 07/23/24 20:56 Consult Podiatry Routine Procedures Performed Operation Date: 07/23/24 09:40 Actual Procedures p Right Foot Incision and Debridement of Right Foot Diabetic Ulcer(Right) - Shayla Huntley DPM Hospital Course (1) Diabetic ulcer of right foot: 68 y/o male with chronic diabetic ulcer of 5th metatarsal of right foot; POD#3 after incision and debridement XRAY done on ED showing possible OM in 5th metatarsal; intra-op findings not concerning for OM Leukocytosis resolved; AF Wound cultures showing few Enterococcus faecalis Will discharge today with 12 more days of Augmentin to reach a total of 14 days of abx therapy Has follow up with Podiatry scheduled for tomorrow at 11:30 am (2) Paroxysmal atrial fibrillation: Continue Metroprolol Patient usually on Warfarin 5 mg daily save for where he takes 10 mg INR in am labs of 1.4 (subtherapeutic; goal INR between 2-3) Possible causes for subtherapeutic INR are missed doses in days leading to procedure and current abx use Advised to take Warfarin 10 mg today and repeat INR tomorrow or Saturday Continue PCP follow up (3) Diabetic nephropathy: Hgb A1c of 7.7% on 07/21/24; improved from 9.0% on 01/07/24 Continue Janvet and tirzepatide after discharge (4) BPH NOS w ur obs/LUTS: Continue Flomax (5) CAD (coronary artery disease): Hx of CABG X 3 (2009) Aspirin 81 mg Continue Metoprol and Losartan (6) Pacemaker: Noted (7) PAD (peripheral artery disease): Continue Aspirin and Atorvastatin (8) Dyslipidemia: Continue atorvastatin Plan Will discharge back home today. Total Time Total Time Spent Total Time Spent (In Minutes): As per attending attestation Discharge Plan Discharge Items Patient Disposition: Home - Self-Care Reason For Visit: DIABETIC FOOT ULCER Discharge Diagnosis: Diabetic foot ulcer Activity: Per Instructions section Non-emergency contact: Primary Care Provider Call non-emergency contact if: your symptoms worsen and your temperature is above 101 Follow-up/Referrals: Mary Flood CRNP [Primary Care Provider] - 08/04/24 10:30 am Diet: Carb Consistent or DM2 and Heart Healthy Ambulatory Orders: Prothrombin Time INR (Timed) Timeframe: 1 Day Location: Determined by Patient Ordered By: Monserrat Clarke Attending Provider Instructions: You were admitted to the hospital due to a wound on your right foot. There was concern that the wound on your right foot was infected and of the possibility that the infection had reached your bone. For this reason, you were treated with antibiotics and had a procedure with the packerhead machine operator (Dr. Deana Soriano) in which they cleaned the wound and emptied the fluid/pus that was under your wound on your foot. After seeing your wound, it is believed that the infection did NOT reach your bone, and therefore you can be treated for the wound infection with oral antibiotics. Given these findings and your clinical improvement, we will be discharging you today. We will be sending a script for an antibiotic called Augmentin to your pharmacy to treat your wound infection. Please take Augmentin two times a day for 12 days to complete a total of 14 days of therapy (taking into account the days you were already being treated with antibiotics in the hospital). We recommend you take this antibiotic with food and water since it does have the possible side effect of nausea, vomiting, or diarrhea. You are also scheduled for a follow up appointment with Dr. Huntley tomorrow at 11:30 am. While in the hospital, your INR (number used to see how well your Warfarin is wo rking) was not in therapeutic range, which could be a consequence of the missed doses for your procedure as well as the current use of antibiotics. For this reason, we recommend you take Warfarin 10 mg today and then continue with your usual dosing of Warfarin 5 mg Saturday/Saturday/Saturday/Saturday/Saturday/Saturday and Warfarin 10 mg on . We will be ordering a repeat lab to re-check your INR, which you can have done either tomorrow or on Saturday. We advise you follow up with your primary care physician to monitor your labs and adjust Warfa rin dose as necessary to reach your goal INR. A discharge summary will be sent to your primary care physician to ensure continuity of care. Please bring this discharge summary with you to your next office appointment so that your provider can review it at that time. Follow-up appointments: Keep all your follow-up appointments as already scheduled. If you cannot make an appointment, notify your provider. Medications: Your medication list has been reviewed and reconciled upon discharge to ensure accuracy and continuity of care. An updated list of all your medications is included with your hospital discharge paperwork. Please review this list closely, and make note of any changes. Take your medications as instructed; do not skip a dose of your medicines. Make sure all of your doctors know every medicine you are taking (including [id number] medicines, vitamins, and supplements). Call your primary care provider before taking any new medicines (including over- the-counter medicines, vitamins, and supplements), because some of these may interact with your current medications, or may make your symptoms worse. Tell your primary care provider if you cannot afford your medications. CONTACT YOUR PRIMARY CARE PROVIDER if you experience any of the following: Worsening of symptoms Fever, chills, or fatigue Difficulty following your treatment plan, or difficulty taking medications CALL 911 OR GO TO THE EMERGENCY DEPARTMENT if you experience any of the following: Sudden, severe abdominal pain or nausea/vomiting Severe chest pain, or chest pain that radiates (moves) to your jaw or arm Sudden, severe shortness of breath or difficulty breathing Thank you for allowing us to participate in your care. Pending Studies at Discharge: No Stand-Alone Forms: My [facility] [place], Smoking Cessation Medications and DC Order Prescriptions: New amoxicillin-pot clavulanate 875-125 mg tablet 1 tab PO BID 12 Days Qty: 24 0RF Rx Instructions: Take with food and water Continued zinc 50 mg tablet 50 mg PO HS ascorbic acid (vitamin C) 500 mg capsule 500 mg PO QAM Janumet XR 50-1,000 mg tablet, ER multiphase 24 hr 1 tab PO BID Qty: 180 3RF Rx Instructions: 1 tab PO bid; (DME) FreeStyle Lite Strips Strip See Rx Instructions .Route Qty: 100 3RF Rx Instructions: test 1-2 times daily meclizine 25 mg tablet 25 mg PO TID PRN (Reason: dizziness) Qty: 30 2RF Mounjaro 7.5 mg/0.5 mL pen injector 7.5 mg subcut WK Qty: 2 4RF Rx Instructions: 7.5 mg subcutaneously weekly; cholecalciferol (vitamin D3) 25 mcg (1,000 unit) capsule 25 mcg PO QAM aspirin 81 mg Tablet,Delayed Release (Dr/Ec) 81 mg PO QAM metoprolol succinate [Toprol XL] 25 mg Tablet Extended Release 24 Hr 25 mg PO QAM losartan [Cozaar] 50 mg tablet 50 mg PO QAM warfarin 5 mg tablet 1 mg PO UD Rx Instructions: 1 mg daily and 2 mg on atorvastatin [Lipitor] 40 mg tablet 40 mg PO HS tamsulosin [Flomax] 0.4 mg capsule 0.4 mg PO HS Discontinued doxycycline hyclate 100 mg tablet 100 mg PO BID Qty: 42 0RF sulfamethoxazole-trimethoprim [Bactrim DS] 800-160 mg tablet 1 tab PO Q12H 14 Days Qty: 28 0RF Discharge Orders: Discharge Order (Routine); Ordered 07/26/24 Ordered By: Monserrat Farrell/Other Patient Handouts: Diabetes Foot Infections Tx, Osteomyelitis Dc Admission Data Admit Date/Time: 07/23/24 19:35 Attending Provider: Saeed Zuluaga Admit Provider: Juan C Akbar Primary Care Provider: Mary Flood Other Providers: Moshe Boo; Shayla Huntley Other Interventions: Discharge Summary Assessment (RN) Last Done: 07/26/24 10:59 Supervising Physician Co-Signing Physician Notes I personally examined the patient and verified all kiser points of history and exam, discussed case, and agree with decision making with Dr Jauregui feels good, would like to go home. d/w podiatry - low concern for osteo and will be following pt closely. d/w pt that Cx not final as far as sensitivity, but seeing podiatry tomorrow and if abx need to be adjusted, then it can be at that appt - he is good with this. Vitals noted, in general he is awake and alert pleasant no distress. HEENT normocephalic atraumatic mucous membranes moist. Right foot dressed. No tracking erythema. Labs and diagnostics noted. Diabetic foot infection/abscessnow post drainage. fortunately low concern for osteo and has close/good/reliable podiatry f/u. home on augmentin for now, adjust abx/duration based on final Cx results and clinical progress. again applauded his improved A1c and encouraged regular cardiovascular exercise as able - with eventual goal of 20-30mins daily - to try to minimize further vascular disease progression. otherwise as above Resident Activity Tracking Resident Involvement: Resident Care Provided Care Provided: Adult Hospital Medicine
[2024-07-26 11:13] VITALS: BP 124/72; TEMP 97.5; O2SAT 95
--- NOTE | 2024-07-26 12:44 | Billing Data ---
Date of Service July 26, 2024 Coding Level of Care Code 47189 IN/OBS DISCH 30 MIN/LESS
--- NOTE | 2024-07-27 19:55 | Coding Query ---
CODING QUERY To promote full compliance with coding requirements relating to patient care, provider participation is requested in all cases of video operator uncertainty. Please assist us with the question(s) below: Coding Question(s): For accurate coding and severity of illness please confirm any clinical significant diagnosis represented by the pathology findings: Soft tissue and bone, right foot -severely inflamed fibrovascular tissue, fragments of necrotic bone, and focal changes "consistent with acute osteomyelitis are seen" Physician's Response(s): _x__ I agree with Pathology finding-Acute osteomyelitis of right foot ___Disagree ___Other( please specify further ) Thank you Rosie GARZON
--- NOTE | 2024-07-29 17:13 | Communication Note ---
Date of Service: July 29, 2024 pathology report noted. was discharged on appropriate abx - duration may need to be lengthened - had discussed possibility of osteomyelitis w podiatry. pt was seeing podiatry in f/u day after discharge; pathology report also sent to podiatry - ongoing outpt podiatric f/u.
[2024-07-30] MEDS ORDERED: WARFARIN SOD 2 MG TAB PO ONE (16:00)
[2024-07-30] MEDS ORDERED: WARFARIN SOD 10 MG TAB PO SCH (16:00)
== END 2024-07-26 12:34 | disposition home or self-care (01) | DRG 629 ==
LOC: ED 15:19 → 2S 19:34 → OR 19:34 → SUATTDRO 19:35 → 2S 19:35 → 2N 07-25 15:46